=== PATIENT | female | born 1980 ===

== ENCOUNTER 2024-03-28 20:00 | Emergency (ER) | payer MEDICARE, SELFPAY ==
[2024-03-28 20:04] VITALS: BP 159/96; PULSE 98; RESP 16; TEMP 36.7; O2SAT 96
--- NOTE | 2024-03-28 20:43 | W.ED.GENAD ---
Discharge Plan Disposition Patient Disposition: Home Condition: Stable Discharge Details Clinical Impression: Headache Primary Care Provider: Unknown,Unknown ED Provider: Lucas Moya Discharge Instructions Additional Instructions: At this time your exam is reassuring however your symptoms and history are concerning for potential etiology in your head or neck that may necessitate CT imaging. Through shared decision-making process you have elected to seek evaluation at [facility]. Please go directly there for further diagnostic evaluation and workup as we discussed together. If you notice any worsening of your symptoms, or any new symptoms such as vomiting, diarrhea, fever, chills, shortness of breath, chest pain, numbness, weakness, or fainting , please return immediately to the emergency department for reevaluation. Please follow up with your primary care provider as soon as possible for reassessment and reevaluation. As always, it was a pleasure participating in your medical care today. HPI General Date/Time Provider Initiated Documentation: 03/28/24 20:23. HPI Narrative: 43-year-old female with a past medical history of ischemic stroke, hypertension, high cholesterol, diabetes mellitus, on daily aspirin, history of muscle spasms, presents today for evaluation of headache. Patient states that for the last 4 to 5 days she has had mild to moderate headache. She describes it as starting suddenly in the back of her head/neck on the right-hand side, it radiates up around the confucianism and into the front of the head. She describes it as a spasm and pressure-like sensation through the head and in the right back neck. Pain is not worsened with flexion but is worsened with extension. She denies any vision changes. She denies any hearing changes. She denies any trauma to that area. She has taken oxycodone and muscle relaxants without any improvement of her symptoms. She states that it feels slightly different than her previous stroke. She denies fever or chills. No other complaints at this time. No other modifying factors. She does state that the headache initially came on very suddenly. General Stated Complaint: Headache JAMEY: 3 Review of Systems All systems reviewed & are unremarkable except as noted in HPI and below Exam Narrative Exam Narrative: 1.Const: Well-nourished, Well-developed, appearing stated age 2.Eyes: PERRL, no conjunctival injection, and symmetrical lids. 3.ENT: Atraumatic external nose and ears. Moist MM. Neck: Symmetric, trachea midline, No thyromegaly. Patient demonstrates good movement of cervical neck. There is no nuchal rigidity, she does have pain in the right neck on palpation. Particularly below the right mastoid, questionable tenderness around the right mastoid. Tympanic membranes are phillips and pearly. Patient is able to flex the neck without any difficulty or significant pain. Negative Kernig's and Brudzinski sign. 4.CVS: +S1/S2, No murmurs or gallops. Peripheral pulses 2+ and equal in all extremities. Brisk capillary refill in all extremities. 5.RESP: Unlabored respiratory effort. Clear to auscultation bilaterally. No wheezes rales or rhonchi 6.GI: Soft, Nontender/Nondistended, No hepatosplenomegaly. No guarding or rebound. 7.MSK: Normocephalic/Atraumatic, Extremities w/o deformity or ttp No cyanosis or clubbing, Normal movement of all extremities 8.Skin: Warm, Dry. No rashes or lesions. 9.Neuro: cleaning crew member II-XII grossly intact. Sensation grossly intact, no focal neurologic deficits. All 6 cardinal planes of vision are fully intact. No evidence of rotatory or vertical nystagmus. The patient demonstrated a normal [id number], good dexterity. There was no evidence of dysdiadochokinesia. Patient was able to ambulate without difficulty. There was no wide-based gait. Romberg testing was normal. Eyvs-hx-hevq testing was normal. Sensation was intact bilaterally as well as muscle strength bilaterally for all extremities. Patient was able to verbalize butter cup with no slurring, or miss pronunciation. 10.Psych: (AAO) x3. Appropriate mood and affect Course Vital Signs Vital signs: Vital Signs Temperature 36.7 C 03/28/24 20:04 Pulse 98 H 03/28/24 20:04 Respiratory Rate 16 03/28/24 20:04 Blood Pressure 159/96 H 03/28/24 20:04 Pulse Oximetry 96 03/28/24 20:04 Temperature 36.7 C 03/28/24 20:04 Temperature Source Oral 03/28/24 20:04 Pulse 98 H 03/28/24 20:04 Respiratory Rate 16 03/28/24 20:04 Blood Pressure 159/96 H 03/28/24 20:04 Pulse Oximetry 96 03/28/24 20:04 Pain Level 5 03/28/24 20:04 Medical Decision Making 43-year-old female with a past medical history of ischemic stroke, hypertension, high cholesterol, diabetes mellitus, on daily aspirin, history of muscle spasms, presents today for evaluation of headache. Patient states that for the last 4 to 5 days she has had mild to moderate headache. She describes it as starting suddenly in the back of her head/neck on the right-hand side, it radiates up around the confucianism and into the front of the head. She describes it as a spasm and pressure-like sensation through the head and in the right back neck. Pain is not worsened with flexion but is worsened with extension. She denies any vision changes. She denies any hearing changes. She denies any trauma to that area. She has taken oxycodone and muscle relaxants without any improvement of her symptoms. She states that it feels slightly different than her previous stroke. She denies fever or chills. No other complaints at this time. No other modifying factors. She does state that the headache initially came on very suddenly. Patient demonstrates good movement of cervical neck. There is no nuchal rigidity, she does have pain in the right neck on palpation. Particularly below the right mastoid, questionable tenderness around the right mastoid. Tympanic membranes are phillips and pearly. Patient is able to flex the neck without any difficulty or significant pain. Negative Kernig's and Brudzinski sign. Patient shows no neurologic deficits. No other significant abnormalities. Differential includes mastoiditis, no vertebral artery bruits are auscultated, however vertebral artery dissection is on the differential. Stroke less likely, aneurysm or fracture of concern but does not seem to clinically fit her symptoms at this time. With the patient's significant risk factors of hypertension diabetes high cholesterol, daily aspirin use, current symptomatology I do feel that CT imaging is indicated for further evaluation of her mastoids, as well as brain/neck for CTA for vascular assessment. I discussed this with the patient. Currently our CAT scanner is down and is not scheduled to be back up for another 24 to 36 hours. We do not have MRI availability at this time. I did offer to transfer the patient to any of the [facility] facilities or [facility]. Additionally I did offer to medicate the patient and perform laboratory evaluation here. Patient at this time has declined further diagnostic workup and medication at this time and would prefer to go directly to [facility]. We discussed the risks and benefits of this, and patient understands. She will be leaving now at this time fully understanding and accepting these risks and will be traveling directly to [facility] with her friend. I have extensively reviewed the treatment plan and discharge instructions with the patient. I have addressed all patient concerns at this time. The patient was made aware of what symptoms to monitor for that would warrant a return to the emergency department. Discussed the plan with the patient, they demonstrate verbal understanding and agreement with our assessment and plan at this time. The documentation in this chart was dictated using [employer] dictation software. Please excuse any dictation errors. Quality:SDOH Health Related Social Needs: No Data to Display PFSH All Active Problems Headache (Acute) Social History Smoking/Tobacco Use Status: Current every day Tobacco Type: cigarettes Smoking risk assessment performed?: Yes Alcohol Intake: current Alcohol Intake frequency: holidays/special occasions only
== END 2024-03-28 20:49 | disposition home or self-care (01) ==
PROVIDERS: Emergency Provider Student in an Organized Health Care Education/Training Program
DX: R51.9 Headache, unspecified (principal); M54.2 Cervicalgia; I10 Essential (primary) hypertension; E78.00 Pure hypercholesterolemia, unspecified; E11.9 Type 2 diabetes mellitus without complications; Z79.82 Long term (current) use of aspirin; F17.210 Nicotine dependence, cigarettes, uncomplicated; Z86.73 Personal history of transient ischemic attack (TIA), and cerebral infarction without residual deficits
CPT/HCPCS: 99283

== ENCOUNTER 2024-05-10 00:02 | Emergency (ER) | payer MEDICARE, SELFPAY ==
[2024-05-10 00:07] VITALS: BP 142/70; PULSE 96; RESP 17; TEMP 36.9; O2SAT 98
--- NOTE | 2024-05-10 00:24 | ED.GENADUL_ITS ---
Discharge Plan Disposition Patient Disposition: Home Condition: Good Discharge Details Chief Complaint: FlankPain Clinical Impression: Left flank pain Primary Care Provider: Unknown,Unknown ED Provider: Lucas Moya Discharge Instructions Instructions: Flank Pain Additional Instructions: At this time your workup is returned very reassuring. We see no signs of kidney stone, blood clots, pneumonia, tumor or cancer or other significant abnormalities. You do have evidence of a slightly enlarged fatty liver. Please follow-up closely with your primary care provider for further discussion about this, and cholesterol medication therapies. Please take your home diclofenac anti-inflammatory medication as directed. Please use Lidoderm patch as directed. If you notice a significant improvement from this, you can get these [id number] at your local pharmacy. If you notice any worsening of your symptoms, or any new symptoms such as vomiting, diarrhea, fever, chills, shortness of breath, chest pain, numbness, weakness, or fainting , please return immediately to the emergency department for reevaluation. Please follow up with your primary care provider as soon as possible for reassessment and reevaluation. As always, it was a pleasure participating in your medical care today. HPI General Date/Time Provider Initiated Documentation: 05/10/24 00:04 . HPI Narrative: 43-year-old female with a past medical history of a left midbrain infarct in 2019, obesity, tobacco use, kidney stone, presents today for evaluat ion of left flank pain. Symptoms began last night, she states that it feels like a spasming sensation, she took a muscle relaxant with no improvement. She states that lying down and sitting down slightly worsens the pain. When she takes a deep breath she also has pain in that area. She denies any vomiting or diarrhea. She denies fever or chills. She does not want any medications for pain. She denies any urinary complaints, hematuria, or urinary frequency. She states that this feels different than her previous kidney stone. No other complaints at this time. No other modifying factors. No radiation anywhere else. Related Data Allergies Allergy/AdvReac Type Severity Reaction Status Date / Time erthromycin Allergy Intermediate burning Uncoded 05/10/24 01:29 General Stated Complaint: FlankPain JAMEY: 3 Review of Systems All systems reviewed & are unremarkable except as noted in HPI and below Exam Narrative Exam Narrative: 1.Const: Well-nourished, Well-developed, appearing stated age 2.Eyes: PERRL, no conjunctival injection, and symmetrical lids. 3.ENT: Atraumatic external nose and ears. Moist MM. Neck: Symmetric, trachea midline, No thyromegaly. 4.CVS: +S1/S2, No murmurs or gallops. Peripheral pulses 2+ and equal in all extremities. Brisk capillary refill in all extremities. 5.RESP: Unlabored respiratory effort. Clear to auscultation bilaterally. No wheezes rales or rhonchi 6.GI: Soft, Nontender/Nondistended, No hepatosplenomegaly. No guarding or rebound. Moderate left CVA tenderness. No reproducible tenderness on palpation though. 7.MSK: Normocephalic/Atraumatic, Extremities w/o deformity or ttp No cyanosis or clubbing, Normal movement of all extremities 8.Skin: Warm, Dry. No rashes or lesions. 9.Neuro: sister superior II-XII grossly intact. Sensation grossly intact, no focal neurologic deficits. 10.Psych: (AAO) x3. Appropriate mood and affect Course Vital Signs Vital signs: Vital Signs Pulse 96 H 05/10/24 00:07 Respiratory Rate 17 05/10/24 00:07 Blood Pressure 142/70 H 05/10/24 00:07 Pulse Oximetry 98 05/10/24 00:07 Pulse 96 H 05/10/24 00:07 Respiratory Rate 17 05/10/24 00:07 Respiratory Effort Normal, Non-Labored 05/10/24 00:11 Blood Pressure 142/70 H 05/10/24 00:07 Pulse Oximetry 98 05/10/24 00:07 Oxygen Delivery Method Room Air 05/10/24 00:07 Oxygen Flow Rate 0 05/10/24 00:07 Pain Level 9 05/10/24 00:07 Comment patient state when she takes a deep breath the pain goes up to a 05/3005/10/24 00:07 Medical Decision Making 43-year-old female with a past medical history of a left midbrain infarct in 2019, obesity, tobacco use, kidney stone, presents today for evaluation of left flank pain. Symptoms began last night, she states that it feels like a spasming sensation, she took a muscle relaxant with no improvement. She states that lying down and sitting down slightly worsens the pain. When s he takes a deep breath she also has pain in that area. She denies any vomiting or diarrhea. She denies fever or chills. She does not want any medications for pain. She denies any urinary complaints, hematuria, or urinary frequency. She states that this feels different than her previous kidney stone. No other complaints at this time. No other modifying factors. No radiation anywhere else. Exam demonstrates well-appearing female, mild to moderate pain though. Mild left CVA tenderness. No reproducible tenderness on palpation of the abdomen or flank with touch though. Concern for urolithiasis, less likely PE, cardiac etiology appears unlikely. Will evaluate for etiologies, monitor closely and reassess. Patient does not want anything for pain. 2:45 AM Laboratory workup has returned, D-dimer elevated, troponin normal, EKG rhythm strip shows no STEMI. Minimal white count, but no bandemia. CTA shows no evidence of PE, dissection, kidney stone, or other acute abnormality. Patient does have evidence of fatty liver which we did discuss with her. Lungs are clear, no other abnormalities on exam or assessment otherwise. Patient feels stable. No evidence of acute life-threatening etiology otherwise. Diagnosis/differential includes intercostal spasm, mild pleurisy, or other acute nonlife-threatening etiology. Patient has consented for Toradol now. We will give Lidoderm patch. Patient otherwise stable for discharge and close outpatient follow-up. Discussed red flags for which to return. I have extensively reviewed the treatment plan and discharge instructions with the patient. I have addressed all patient concerns at this time. The patient was made aware of what symptoms to monitor for that would warrant a return to the emergency department. Discussed the plan with the patient, they demonstrate verbal understanding and agreement with our assessment and plan at this time. The documentation in this chart was dictated using [employer] dictation software. Please excuse any dictation errors. Exam: CTA Chest With Contrast CTA Abdomen and Pelvis With Contrast Exam date and time: 05/10/2024 1:43 AM Age: 43 years old Clinical indication: Other: Elevated dimer, cp, eval for pe; Other: L flank, eval for stone TECHNIQUE: Imaging protocol: Computed tomographic angiography of the chest with contrast. Exam focused on the arteries. Computed tomographic angiography of the abdomen and pelvis with contrast. Exam focused on the arteries. 3D rendering (Not supervised by radiologist): MIP and/or 3D reconstructed images were created by the technologist. Contrast material: OMNIPAQUE 350; Contrast volume: 100 ml; Contrast route: INTRAVENOUS (IV); COMPARISON: No relevant prior studies available. FINDINGS: VASCULATURE: Pulmonary arteries: The pulmonary arteries are normal in caliber. No evidence of acute pulmonary embolism. Aorta: The aorta is normal without evidence of aneurysmal dilatation, dissection or occlusive disease. The abdominal aorta is widely patent without evidence of significant occlusive or aneurysmal disease. The aorta is normal without evidence of significant atherosclerosis or aneurysmal disease. The peripheral arterial vascular system visualized is unremarkable. The portal venous system visualized is unremarkable. The venous system visualized is unremarkable. Celiac trunk and mesenteric arteries: The celiac artery is widely patent without evidence of occlusive or aneurysmal disease. Superior mesenteric artery is widely patent without evidence of [facility] Preliminary Radiology Report Page 2 of 3 occlusive or aneurysmal disease.The inferior mesenteric artery is widely patent without evidence of occlusive or aneurysmal disease. Renal arteries: Single renal artery supplies the right kidney, is widely patent, without evidence of significant occlusive or aneurysmal disease. Single renal artery supplies the left kidney, is widely patent, without evidence of significant occlusive or aneurysmal disease. Right iliac arteries: The right common iliac artery, right internal iliac artery and right external iliac arteries are widely patent without evidence of significant occlusive or aneurysm al disease. Right femoral/popliteal arteries: The right common femoral artery is widely patent without evidence of significant occlusive or aneurysmal disease. The proximal right deep and superficial femoral arteries are widely patent without evidence of significant occlusive or aneurysmal disease. Left iliac arteries: The left common iliac artery, left internal iliac artery and left external iliac arteries are widely patent without evidence of significant occlusive or aneurysmal disease. Left femoral/popliteal arteries: The left common femoral artery is widely patent without evidence of significant occlusive or aneurysmal disease. The proximal left deep and superficial femoral arteries are widely patent without evidence of significant occlusive or aneurysmal disease. CHEST: Lungs: There is no evidence of focal pulmonary consolidation. No evidence of pulmonary parenchymal inflammatory changes. There is no evidence of pulmonary masses. The lungs are normal. There is no evidence of focal pulmonary consolidation. Pleural spaces: There is no evidence of pneumothorax. There are no pleural effusions present. There is no evidence of pneumothorax. There are no pleural effusions present. Heart: The cardiac structures are normal. The right ventricular to left ventricular ratio is normal measuring approximately 0.6. The cardiac structures are normal. ABDOMEN AND PELVIS: Liver: The liver is enlarged measuring 17 cm.There is a diffuse decrease in hepatic parenchymal density, consistent with moderate fatty infiltration. There are no focal liver lesions present. There is no evidence of intrahepatic or extrahepatic biliary ductal dilation. Gallbladder and biliary ducts: There has been a cholecystectomy. Pancreas: The pancreas is normal. Spleen: The spleen is normal. Adrenal glands: The adrenal glands are normal. Kidneys and ureters: The kidneys are normal. Stomach and bowel: There is no evidence of intestinal obstruction. No diverticulitis is present. Appendix: A normal appendix is identified. There is no evidence of distention or periappendiceal inflammation to suggest appendicitis. Intraperitoneal space: There is no free intraperitoneal air. There is no evidence of free intraperitoneal or pelvic fluid. There are no soft tissue masses or fluid collections. Urinary bladder: The bladder is normal. Reproductive: The uterus is normal. The ovaries are normal. Lymph nodes: There is no evidence of lymphadenopathy. There is no evidence of lymphadenopathy. Bones/joints: The spine, sternum, ribs, and pectoral girdles show no evidence of acute abnormality. The skeletal structures show no evidence of fracture or other acute processes. [facility] Preliminary Radiology Report RECRUITING COORDINATOR (QA) DISCREPANCY? If there is a discrepancy between the preliminary and final interpretation, please notify [facility] via [email or web address]. If you do not have access to our QA portal, call our QA team at [phone] CONFIDENTIALITY STATEMENT This report is intended only for the use of the referring physician, and only in accordance with law, If you received this in error, call [phone] Page 3 of 3 Soft tissues: There are no soft tissue masses or fluid collections. The extra- abdominal soft tissues are normal. Other findings: The mediastinal structures are normal. IMPRESSION: 1. No evidence of acute pulmonary embolism. 2. Hepatic steatosis with hepatomegaly. 3. Normal appearance to the kidneys bilaterally. 4. No evidence of aneurysm, vascular occlusive or vasculitis changes identified. Thank you for allowing us to participate in the care of your patient. Dictated and Authenticated by: Jayro Wong MD 05/10/2024 2:26 AM Eastern Time ([place] & [place]) Quality:SDOH Health Related Social Needs: No Data to Display PFSH All Active Problems (Updated 05/10/24 @ 02:43 by Lucas Moya DO) Left flank pain (Acute) Social History Smoking/Tobacco Use Status: Current every day Tobacco Type: cigarettes Smoking risk assessment performed?: Yes Alcohol Intake: current Alcohol Intake frequency: holidays/special occasions only Drug use: Never Substance use type: does not use Housing: house
[2024-05-10 00:45] LABS: Abs Immature Grans 0.04 10^3/uL (0.0-0.06); Absolute Basophil Count 0.05 10^3/uL (0.0-0.2); Absolute Eosinophil Count 0.12 10^3/uL (0.0-0.7); Absolute Lymphocyte Count 3.29 10^3/uL (1.2-3.4); Absolute Monocyte Count 0.81 10^3/uL (0.1-0.8); Basophils % 0.4 %; Eosinophils % 0.9 %; HCT 39.2 % (36.0-46.0); HGB 12.8 g/dL (11.2-15.7); Immature Grans % 0.3 %; Lymphocytes % 24.4 %; MCH 28.3 pg (27.0-33.0); MCHC 32.7 % (32.0-36.0); MCV 87 fL (80-95); MPV 9.5 fL (8.0-11.0); Platelet Count 335 10^3/uL (130-400); RBC 4.53 10^6/uL (3.93-5.22); RDW 14.1 % (11.7-14.6); RDW-SD 44.9 fL; WBC 13.49 10^3/uL (4.4-10.8)
[2024-05-10 00:47] LABS: Absolute Neutrophil Count 9.17 10^3/uL (1.2-6.7)
[2024-05-10 01:00] LABS: Bilirubin Negative (Negative); Blood Negative (Negative); Clarity Sl Cloudy (Clear); Glucose Negative (Negative); Ketones Negative (Negative); Leukocyte Esterase Negative (Negative); Nitrite Negative (Negative); Urobilinogen 0.2 mg/dL (Up to 0.2); pH 6.5 (5-8)
[2024-05-10 01:04] LABS: ALT 47 U/L (14-59); AST 18 U/L (15-37); Albumin 3.7 g/dL (3.4-5.0); Alkaline Phosphatase 134 U/L (46-116); Anion Gap 10.9 mmol/L (3-11); BUN 22 mg/dL (7-18); Bilirubin, Total 0.37 mg/dL (0.2-1.0); CO2 28.1 mmol/L (21.0-32.0); CREATININE 0.9 mg/dL (0.55-1.02); Chloride 102 mmol/L (98-107); Estimated GFR 80.84 (mL/min/1.73m2); Glucose 128 mg/dL (74-106); Potassium 3.8 mmol/L (3.5-5.1); Sodium 141 mmol/L (136-145); Total Protein 7.5 g/dL (6.4-8.2); Troponin I < 50 ng/L (< or =60)
[2024-05-10 01:18] LABS: D-Dimer 549 ng/mlFEU (<500)
[2024-05-10] MEDS: Normal Saline 1,000 ML 1000 ML IV (01:27)
[2024-05-10] MEDS: Normal Saline - Diluent 50 ML VIAL IJ (01:59)
[2024-05-10] MEDS: Omnipaque 350 MG/ML 100 ML BTL IJ (01:59)
--- NOTE | 2024-05-10 02:03 | DI.CT_ITS ---
Exam(s) CT THORAX ABD/PEL CTA EXAM: CT THORAX ABD/PEL CTA CLINICAL HISTORY: elevated dimer, L flank and CP, eval for PE/stone. TECHNIQUE: Imaging Protocol: Axial CT angiography was performed with multi-slice acquisition and m ulti-planar and/or 3D reconstructions. CONTRAST MATERIAL: Intravenous: Omnipaque 350 Contrast volume:structured data in ml Oral: / no COMPARISON: No exams were available for comparison FINDINGS: CHEST: Pulmonary Arteries: No evidence of filling defect to suggest pulmonary emboli. Tracheobronchial tree: Patent where visualized. Mediastinum and Ashley: No dominant adenopathy or fluid collection. Pulmonary parenchyma: No consolidation or dominant measurable mass. No architectural distortion. Pleura: No effusion or pneumothorax. Heart: The heart is not dilated. No coronary artery calcifications are seen. Aorta: Thoracic aorta non-dilated. No dissection. No atherosclerotic changes. Bones: Normal. Tubes, Catheters, and Lines: None ABDOMEN AND PELVIS: Abdomen: Celiac axis/mesenteric arteries: No evidence of occlusion or significant stenosis. Renal Arteries: No evidence of occlusion or significant stenosis. There is a single renal artery per fusing each kidney. Aorta: No evidence of occlusion or significant stenosis. No aneurysm or dissection. Pelvis: Iliac Arteries: No evidence of occlusion or significant stenosis. Common Femoral Arteries: No evidence of occlusion or significant stenosis. ABDOMEN: Liver: Enlarged. Moderate hepatic steatosis. No measurable mass. Portal, Superior Mesenteric, and Splenic Veins: Unremarkable. Gallbladder and Biliary Tract: Status post cholecystectomy. No radiodense calculus or dilation. Pancreas: Normal density, no abnormal calcifications or inflammatory process. Spleen: Normal. Adrenals: No masses seen. Kidneys: Normal size, contour and axis. No radiodense stones or obstructive uropathy. No masses seen. Bowel: No obstruction or bowel wall thickening. Appendix is unremarkable. Peritoneal Cavity: No ascites, collection or mesenteric inflammatory response. Lymph Nodes: Within normal limits. Bones: Unremarkable. Soft Tissues: Unremarkable. PELVIS: Bladder: Symmetric distention, no gross wall thickening. Reproductive Organs: Unremarkable as visualized. Lymph Nodes: Within normal limits. Bones: Within normal limits. IMPRESSION: Normal CT Angiogram of the chest, abdomen and pelvis. No evidence of pulmonary emboli. No evidence of renal calculi or hydronephrosis. Enlarged liver with moderate hepatic steatosis. RADIATION DOSE DELIVERED: Total DLP DATA REPOSITORY: All CT scans at this facility are submitted to the National Radiology Data Registry (NRDR) Dose Index Registry (DIR) with the [employer] (ACR). RADIATION OPTIMIZATION: All CT scans at this facility use at least one of these dose optimization te chniques: automated exposure control; mA and/or kV adjustment per patient size (includes targeted exa ms where dose is matched to clinical indication); or iterative reconstruction.
--- NOTE | 2024-05-10 02:27 | DI.VRAD_ITS ---
PROCEDURE INFORMATION: Exam: CTA Chest With Contrast CTA Abdomen and Pelvis With Contrast Exam date and time: 05/10/2024 1:43 AM Age: 43 years old Clinical indication: Other: Elevated dimer, cp, eval for pe; Other: L flank, eval for stone TECHNIQUE: Imaging protocol: Computed tomographic angiography of the chest with contrast. Exam focused on the arteries. Computed tomographic angiography of the abdomen and pelvis with contrast. Exam focused on the arteries. 3D rendering (Not supervised by radiologist): MIP and/or 3D reconstructed images were created by the technologist. Contrast material: OMNIPAQUE 350; Contrast volume: 100 ml; Contrast route: INTRAVENOUS (IV); COMPARISON: No relevant prior studies available. FINDINGS: VASCULATURE: Pulmonary arteries: The pulmonary arteries are normal in caliber. No evidence of acute pulmonary embolism. Aorta: The aorta is normal without evidence of aneurysmal dilatation, dissection or occlusive disease. The abdominal aorta is widely patent without evidence of significant occlusive or aneurysmal disease. The aorta is normal without evidence of significant atherosclerosis or aneurysmal disease. The peripheral arterial vascular system visualized is unremarkable. The portal venous system visualized is unremarkable. The venous system visualized is unremarkable. Celiac trunk and mesenteric arteries: The celiac artery is widely patent without evidence of occlusive or aneurysmal disease. Superior mesenteric artery is widely patent without evidence of occlusive or aneurysmal disease.The inferior mesenteric artery is widely patent without evidence of occlusive or aneurysmal disease. Renal arteries: Single renal artery supplies the right kidney, is widely patent, without evidence of significant occlusive or aneurysmal disease. Single renal artery supplies the left kidney, is widely patent, without evidence of significant occlusive or aneurysmal disease. Right iliac arteries: The right common iliac artery, right internal iliac artery and right external iliac arteries are widely patent without evidence of significant occlusive or aneurysmal disease. Right femoral/popliteal arteries: The right common femoral artery is widely patent without evidence of significant occlusive or aneurysmal disease. The proximal right deep and superficial femoral arteries are widely patent without evidence of significant occlusive or aneurysmal disease. Left iliac arteries: The left common iliac artery, left internal iliac artery and left external iliac arteries are widely patent without evidence of significant occlusive or aneurysmal disease. Left femoral/popliteal arteries: The left common femoral artery is widely patent without evidence of significant occlusive or aneurysmal disease. The proximal left deep and superficial femoral arteries are widely patent without evidence of significant occlusive or aneurysmal disease. CHEST: Lungs: There is no evidence of focal pulmonary consolidation. No evidence of pulmonary parenchymal inflammatory changes. There is no evidence of pulmonary masses. The lungs are normal. There is no evidence of focal pulmonary consolidation. Pleural spaces: There is no evidence of pneumothorax. There are no pleural effusions present. There is no evidence of pneumothorax. There are no pleural effusions present. Heart: The cardiac structures are normal. The right ventricular to left ventricular ratio is normal measuring approximately 0.6. The cardiac structures are normal. ABDOMEN AND PELVIS: Liver: The liver is enlarged measuring 17 cm.There is a diffuse decrease in hepatic parenchymal density, consistent with moderate fatty infiltration. There are no focal liver lesions present. There is no evidence of intrahepatic or extrahepatic biliary ductal dilation. Gallbladder and biliary ducts: There has been a cholecystectomy. Pancreas: The pancreas is normal. Spleen: The spleen is normal. Adrenal glands: The adrenal glands are normal. Kidneys and ureters: The kidneys are normal. Stomach and bowel: There is no evidence of intestinal obstruction. No diverticulitis is present. Appendix: A normal appendix is identified. There is no evidence of distention or periappendiceal inflammation to suggest appendicitis. Intraperitoneal space: There is no free intraperitoneal air. There is no evidence of free intraperitoneal or pelvic fluid. There are no soft tissue masses or fluid collections. Urinary bladder: The bladder is normal. Reproductive: The uterus is normal. The ovaries are normal. Lymph nodes: There is no evidence of lymphadenopathy. There is no evidence of lymphadenopathy. Bones/joints: The spine, sternum, ribs, and pectoral girdles show no evidence of acute abnormality. The skeletal structures show no evidence of fracture or other acute processes. Soft tissues: There are no soft tissue masses or fluid collections. The extra-abdominal soft tissues are normal. Other findings: The mediastinal structures are normal. IMPRESSION: 1. No evidence of acute pulmonary embolism. 2. Hepatic steatosis with hepatomegaly. 3. Normal appearance to the kidneys bilaterally. 4. No evidence of aneurysm, vascular occlusive or vasculitis changes identified. Dictated and Authenticated by: Jayro Wong MD. Ordering:CHATO Zavala MD
[2024-05-10 02:49] VITALS: BP 129/77; PULSE 82; RESP 18; TEMP 37; O2SAT 95; O2SAT 96
[2024-05-10] MEDS: Ketorolac 15 MG/ML VIAL IVP (02:54)
[2024-05-10] MEDS: Lidocaine 5% Patch 1 PATCH TP (02:55)
== END 2024-05-10 03:00 | disposition home or self-care (01) ==
PROVIDERS: Emergency Provider Student in an Organized Health Care Education/Training Program
DX: R10.9 Unspecified abdominal pain (principal); R79.1 Abnormal coagulation profile; K76.0 Fatty (change of) liver, not elsewhere classified; F17.210 Nicotine dependence, cigarettes, uncomplicated
CPT/HCPCS: 71275; 80053; 96374; 99285; 74174; 81003; 84484; 85025; 85379; 99284; J1885; J3490

== ENCOUNTER 2024-06-16 00:06 | Emergency (ER) | payer MEDICARE, SELFPAY ==
[2024-06-16 00:08] VITALS: BP 142/79; PULSE 84; RESP 16; TEMP 36.3; O2SAT 95
[2024-06-16 00:13] VITALS: BP 142/79; PULSE 84; RESP 16; TEMP 36.3; O2SAT 95
--- OUTSIDE RECORDS SUMMARY | 2024-06-16 00:22 | XMS_ITS | Encounter Summary ---
Author Organization [facility] Address [address] [place] [address] Care Team Providers Care Mission Assessment Specialist Name Role Phone Mia Alexander DO Primary Care Provider + Reason for Visit * Reason Onset Date Comments Prior Auth, Medication 03/13/2024 FreeStyle Test Strips Encounter Details Date Type Department Care Team (Late st Contact Info) Description 03/13/2024 Telephone [facility] Family Medicine [address], [facility] [address] [place] [address] Mia Alexander DO [address] [facility] [address] [place] [phone] Prior Auth, Medication (FreeStyle Test Strips) Social History Tobacco Use Types Packs/Day Years Used Date Smoking Tobacco: Every Day Cigarettes 1 32.7 Started: 1991 Smokeless Tobacco: Never Alcohol Use Standard Drinks/Week Comments Yes 0 (1 standard drink = 0.6 oz pur e alcohol) AUDIT-C Answer Date Recorded Frequency of Alcohol Consumption 2-4 times a mon 10/03/2019 Average Number of Drinks 1 or 2 020 Frequency of Binge Drinking Never 09/20 Interpersonal Safety Answer Date Record ed Physically Hurt Never 04/21/2020 Verbally Threaten Not on file 04/21/2020 Sex and Gender Information Value Date Recorded Sex Assigned at Not on file Gender Identity Female 08/04/2019 13:58 EST Sexual Orientation Not on file documented as of this encounter Ordered Prescriptions Prescription Sig Dispensed Refills Start Date End Da te blood glucose test stripsIndications:Type 2 diabetes mellitus with hyperglycemia, without long-term current use of insulin ([facility]) Brand: One Touch Ultra. To test once daily. Patient does not use insulin. 100 Each 3 03/14/2024 documented in this encounter Miscellaneous Notes * Telephone Encounter - Sue Orozco RN - 03/14/2024 0921 EDT Unclear why we are getting request for freestyle strips as pt has OneTouch glucometer. Called [facility] in [place]. Spoke w/ pharmacist who reports since we are billing Medicare, we must send rx for specific product, include ICD code and state in sig if pt is or is not using insulin. Re-ordered correct strips with above requirement. * Telephone Encounter - Gage Ford MA - 03/13/2024 0959 EDT PA Needed for: RX: FreeStyle test Strips Yung: [id number] [employer] documented in this encounter Plan of Treatment Not on file documented as of this encounter Visit Diagnoses Diagnosis Type 2 diabetes mellitus with hyperglycemia, without long-term current use of insulin ([facility])- Primary documented in this encounter Discontinued Medications Medication Sig Discontinue Reason Start Date End Da te blood glucose test stripsIndications:Type 2 diabetes mellitus with hyperglycemia, without long-term current use of insulin ([facility]) Use 1 Strip as directed daily. Brand:per formulary; test blood sugar once daily 11/24/2023 03/14/2024 documented as of this encounter Care Teams Mission Assessment Specialist Relationship Specialty Start Date End Date Mia Alexander DO [address] [place] [phone] PCP - General Family Medicine - Primary Care 01/29/23 documented as of this encounter
--- OUTSIDE RECORDS SUMMARY | 2024-06-16 00:22 | XMS_ITS | Encounter Summary ---
Author Organization [facility] Address [address] [place] [address] Care Team Providers Care Precision Grinder External Name Role Phone Mia Alexander DO Primary Care Provider + Reason for Visit * Reason Onset Date Comments Rash 02/17/2024 Encounter Details Date Type Department Care Team (Late st Contact Info) Description 02/17/2024 Telephone [facility] Family Medicine - [address], [facility] [address] [place] [address] Mia Alexander DO [address] [facility] [address] [place] [phone] Rash Social History Tobacco Use Types Packs/Day Years Used Date Smoking Tobacco: Every Day Cigarettes 1 32.7 Started: 1991 Smokeless Tobacco: Never Alcohol Use Standard Drinks/Week Comments Yes 0 (1 standard drink = 0.6 oz pur e alcohol) AUDIT-C Answer Date Recorded Frequency of Alcohol Consumption 2-4 times a wed10/03/2019 Average Number of Drinks 1 or 2 020 Frequency of Binge Drinking Never 09/20 Interpersonal Safety Answer Date Record ed Physically Hurt Never 04/21/2020 Verbally Threaten Not on file 04/21/2020 Sex and Gender Information Value Date Recorded Sex Assigned at Not on file Gender Identity Female 08/04/2019 13:58 EST Sexual Orientation Not on file documented as of this encounter Miscellaneous Notes * Telephone Encounter - Sue Orozco RN - 02/17/2024 1059 EDT [facility] Primary Care SBAR Nurse Triage call note: Situation: Rash Background: Rash on chest x2 days Assessment: Rash on chest traveling up neck, now has sore throat. No difficulty breathing. Recommendation: Recommend eval ROMMEL. Pt will go to [facility]. Will have them fax records to. * Telephone Encounter - Deloris Rod - 02/17/2024 0976 EDT Rash on chest that is itchy and roland, been there for a few days, travelling up her neck. Pt inquiring about what she can put on it. documented in this encounter Plan of Treatment Not on file documented as of this encounter Visit Diagnoses Not on filedocumented in this encounter Care Teams Precision Grinder External Relationship Specialty Start Date End Date Mia Alexander DO [address] [place] [phone] PCP - General Family Medicine - Primary Care 01/29/23 documented as of this encounter
--- OUTSIDE RECORDS SUMMARY | 2024-06-16 00:22 | XMS_ITS | Encounter Summary ---
Author Organization [facility] Address [address] [place] [address] Care Team Providers Care Informatics Coordinator Name Role Phone Mia Alexander DO Primary Care Provider + Reason for Visit * Reason Onset Date Comments Medications Refill 05/15/2024 Diflucan Encounter Details Date Type Department Care Team (Late st Contact Info) Description 05/15/2024 Telephone [facility] Family Medicine [address], [place] [address] [place] [address] Mia Alexander DO [address] [facility] [address] [place] [phone] Medications Refill (Diflucan) Social History Tobacco Use Types Packs/Day Years [...] encounter Miscellaneous Notes * Telephone Encounter - Tenisha Danielson RN - 05/17/[address] [facility] Primary Care SBAR Nurse Triage call note: Situation: Rash under stomach folds Background: History of yeast infections, has Nystatin powder that she is currently using as prescribed - no resolution, DM2, BMI over 50 Assessment: Patient reports rash, odor, burning, itching, onset of 4 days. This occurs when patient sweats. Nystatin powder ineffective. Patient requested Fluconazole as this is what has helped in the past Recommendation: Offered NV to patient or EC for eval and swab for proper treatment. Patient elected to go to local EC. Confirmed next appt with [facility] with patient. * Telephone Encounter - Kayla Ambriz NP - 05/15/2024 1537 EDT I recommend having a NV for self swab to make sure we are treating yeast infection prior to starting medication. Thanks * Telephone Encounter - Gage Ford MA - 05/15/2024 1412 EDT Medication Refill Request Medication and dose: Diflucan 150 mg tab Verified: Yes Pharmacy verified: Yes Last visit: 02/08/2024 Next visit: 06/05/2024 Pt has Hx of yeast infections. Has been sent-in previously without appointment. Are you willing to Rx? documented in this encounter Plan of Treatment Not on file documented as of this encounter Visit Diagnoses Diagnosis Yeast infection- Primary Candidiasis of unspecified site documented in this encounter Care Teams Informatics Coordinator Relationship Specialty Start Date End Date Mia Alexander DO [address] [place] [phone] PCP - General Family Medicine - Primary Care 01/29/23 documented as of this encounter
--- OUTSIDE RECORDS SUMMARY | 2024-06-16 00:22 | XMS_ITS | Referral Summary ---
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); Chronic prescription opiate use; Chronic pain syndrome; Type 2 diabetes mellitus with hyperglycemia, without long-term current use of insulin (HCC-CMS); Metabolic dysfunction-associate d steatotic liver disease (MASLD); Immunization due; Encounter for screening mammogram for malignant neoplasm of breast; Cervical cancer screening 05/24/2024 Telephone [facility] [address], [place] [address] [place] [address] Mia Alexander DO Medications Refill (Pt is out of RX); Other (Yeast on stomach) 05/24/2024 Refill [facility] [address], [facility] [address] [place] [address] Sadiq Buck MD Medications Refill 05/18/2024 Refill [facility] [address], [place] [address] [place] [address] Mia Alexander, DO Medications Refill 05/15/2024 Telephone [facility] [address], [place] [address] [place] [address] Mia Alexander, DO Medications Refill (Diflucan) 05/11/2024 Refill [facility] [address], [place] [address] [place] [address] Sue Yates MD Medications Refill (Lorazepam increase) 05/10/2024 Telephone [facility] [address], [place] [address] [place] [address] Mia Alexander, DO Follow-up 05/06/2024 Telephone [facility] [address] [facility] [place] [address] Ramy Taylor MD Television Engineer Message 04/26/2024 Refill [facility] [address], [place] [address] [place] [address] Kayla Ambriz NP Medications Refill 04/22/2024 Refill [facility] [address], [place] [address] [place] [address] Sue Yates MD Medications Refill 04/19/2024 Refill [facility] [address], [place] [address] [place] [address] Sue Yates MD Medications Refill 04/12/2024 Refill [facility] [address], [place] [address] [place] [address] Sue Yates MD Medications Refill 04/12/2024 Refill [facility] [address], [place] [address] [place] [address] Mia Alexander, DO Medications Refill 04/03/2024 Refill [facility] [address], [place] [address] [place] [address] Mia Alexander, DO Medications Refill 03/30/2024 Refill [facility] [address], [place] [address] [place] [address] Sue Kerns, MELLY Medications Refill 03/29/2024 Telephone [facility] [address], [place] [address] [place] [address] Mia Alexander, DO Medications Refill; Medical Records 03/21/2024 Refill [facility] [address], [place] [address] [place] [address] Emma Conteh, STUDENT RECRUITER Medications Refill from Last 3 Months Allergies Active Allergy Reactions Criticality Noted Date Comments Amoxicillin-Pot Clavulanate GI upset Low 10/07/19 22 Oxycodone Itching Low 07/02/2023 Medications Medication Sig Dispensed Refills Start Date End Date Status omeprazole (PRILOSEC) 20 mg capsule TAKE ONE CAPSULE BY MOUTH ONE TIME DAILY 90 Capsule 3 3 Active aspirin 81 mg EC tabletIndicatio ns:Cerebrovascu lar accident (CVA), unspecified mechanism ([facility]) TAKE ONE TABLET BY MOUTH ONE TIME DAILY. 100 Tablet 5 3 Active atorvastatin (LIPITOR) 40 mg tablet TAKE ONE TABLET BY MOUTH ONE TIME DAILY 90 Tablet 3 4 Active ONETOUCH ULTRA2 METER Use 1 Strip as directed daily. 3 Active ONETOUCH ULTRASOFT 2 LANCET 30 gauge misc Use 1 Lancet as directed daily. 3 Active lancetsIndicati ons:Type 2 diabetes mellitus with hyperglycemia, without long-term current use of insulin (HCC-CMS) Use 1 Lancet as directed daily. Brand: per formulary; test blood sugar once daily 100 Each 3 4 Active hydrOXYzine (ATARAX) 10 mg tabletIndicatio ns:Generalized anxiety disorder with panic attacks Take 1 Tablet by mouth every 8 hours as needed for Anxiety. 30 Tablet 4 Active blood glucose test stripsIndicatio ns:Type 2 diabetes mellitus with hyperglycemia, without long-term current use of insulin ([facility]) Brand: One Touch Ultra. To test once daily. Patient does not use insulin. 100 Each 3 4 Active methocarbamoL (ROBAXIN) 750 mg tablet Take 1 Tablet by mouth 3 times daily as needed for Muscle Spasms. 30 Tablet 1 4 Active semaglutide (OZEMPIC) 0.25 mg or 0.5 mg (2 mg/3 mL) pen injector Inject 0.5 mg into the skin once a week. 3 mL 1 4 Active FLUoxetine (PROZAC) 20 mg capsuleIndicati ons:Generalized anxiety disorder with panic attacks,Recurre nt major depressive disorder, in full remission ([facility]) Take 1 Capsule by mouth daily. With 40 mg fluoxetine for total daily dose of 60 mg 90 Capsule 3 4 Active colestipoL (COLESTID) 1 gram tabletIndicatio ns:Postcholecys tectomy diarrhea Take 2 Tablets by mouth every morning AND 1 Tablet at bedtime. 90 Tablet 4 Active naloxone (NARCAN) 4 mg/actuation nasal spray 0.1 mL by nasal route as needed for Opioid Reversal. 1 Each 1 4 Active LORazepam (ATIVAN) 0.5 mg tabletIndicatio ns:Chronic pain syndrome Take 1/2 Tabletby mouth daily as needed for Anxiety. Daily Max: 0.25 mg 14 Tablet 4 Active FLUoxetine (PROZAC) 40 mg capsule TAKE ONE CAPSULE BY MOUTH ONE TIME DAILY 90 Capsule 3 4 Active nystatin (MYCOSTATIN) powder APPLY 2 TIMES DAILY to affected areas under breasts and groin folds 30 g 3 4 Active HYDROcodone-emili taminophen (NORCO) 5-325 mg tabletIndicatio ns:Chronic pain syndrome Take 1 Tablet by mouth every 6 hours as needed for up to 28 days for Pain (only as needed for severe pain). 1 day early d/t transportation Daily Max: 4 Tablets 112 Tablet 4 024 Active diclofenac (VOLTAREN) 75 mg EC tablet Take 1 Tablet by mouth 2 times daily. 180 Tablet 3 4 026 Active metFORMIN (GLUCOPHAGE-XR) 500 mg ER tabletIndicatio ns:Type 2 diabetes mellitus with hyperglycemia, without long-term current use of insulin ([facility]) Take 2 Tablets by mouth daily with breakfast. 180 Tablet 3 4 Active HYDROcodone-emili taminophen (NORCO) 5-325 mg tabletIndicatio ns:Chronic pain syndrome Take 1 Tablet by mouth every 6 hours as needed for up to 28 days for Pain (only as needed for severe pain). Daily Max: 4 Tablets 112 Tablet 4 024 Active HYDROcodone-emili taminophen (NORCO) 5-325 mg tabletIndicatio ns:Chronic pain syndrome Take 1 Tablet by mouth every 6 hours as needed for up to 28 days for Pain (only as needed for severe pain). Daily Max: 4 Tablets 112 Tablet 4 024 Active nystatin (MYCOSTATIN) powder APPLY 2 TIMES DAILY to affected areas under breasts and groin folds 30 g 3 3 024 Discontinued(Re order) diclofenac (VOLTAREN) 75 mg EC tablet Take 1 Tablet by mouth 2 times daily. 180 Tablet 3 3 024 Discontinued(Re order) FLUoxetine (PROZAC) 40 mg capsule TAKE ONE CAPSULE BY MOUTH ONE TIME DAILY 90 Capsule 3 3 024 Discontinued metFORMIN (GLUCOPHAGE-XR) 500 mg ER tabletIndicatio ns:Type 2 diabetes mellitus with hyperglycemia, without long-term current use of insulin ([facility]) Take 1 Tablet by mouth daily with breakfast 90 Tablet 3 4 024 Discontinued(Re order) ferrous sulfate 325 mg (65 mg iron) EC tabletIndicatio ns:Anemia, unspecified type TAKE ONE TABLET BY MOUTH ONCE DAILY 90 Tablet 3 4 024 Discontinued(Eber coughlin Stopped Taking) HYDROcodone-emili taminophen (NORCO) 5-325 mg tabletIndicatio ns:Chronic pain syndrome Take 1 Tablet by mouth every 6 hours as needed for up to 28 days for Pain (only as needed for severe pain). Daily Max: 4 Tablets 112 Tablet 4 024 Discontinued(Re order) HYDROcodone-emili taminophen (NORCO) 5-325 mg tabletIndicatio ns:Chronic pain syndrome Take 1 Tablet by mouth every 6 hours as needed for Pain (only as needed for severe pain). Daily Max: 4 Tablets 28 Tablet 4 024 Discontinued(Re order) Active Problems Patient Care Coordination No te Formatting of this note migh t be different from the original. Patient has given permission for [facility] to verbally discuss the following information with Enrique Shaw who has the following relationship to the patient: Spouse/Partner: Scheduling/Appt/Billing/Payment Information (does not include clinical information unless specifically indicated with separate option) Medical Information including symptoms, diagnosis, medications, test results and treatment plan (does not include Mental Health unless specifically indicated with separate option) Mental Health (Behavioral,Psychiatric,Chemical Dependency) health information, including my symptoms, diagnosis, medications and treatment plan Permission remains in effect until the patient elects to revoke it. Problem Noted Date Diagnosed Date Type 2 diabetes mellitus wit h hyperglycemia, without long-term current use of insulin ([facility]) 11/18/2023 Chronic pain syndrome 07/02/2023 Postcholecystectomy diarrhea 07/02/2023 Elevated C-reactive protein (CRP) 07/02/2023 Gastroesophageal reflux disease 07/02/2023 Chronic prescription opiate use 06/16/2022 Generalized anxiety disorder with panic attacks 12/02/2021 Cigarette nicotine dependence without complicati on 04/17/2020 Carpal tunnel syndrome of right wrist 09/05/2019 Irritable bowel syndrome with diarrhea 9 History of kidney stones 09/05/2019 Class 3 severe obesity due t o excess calories with serious comorbidity and body mass index (BMI) of 50.0 to 59.9 in adult ([facility]) 09/05/2019 Connective tissue disease overlap syndrome ([facility]) 09/05/2019 History of CVA (cerebrovascular accident) 2018 Overview: 08/11/2019: MRI of the brain shows a small infarction near in left midbrain tegmentum. There may also be a recent infarction in the medial left cerebral peduncle but this seems artifactual on the MRI and she has no weakness. The initial CT here was suspected to show occipital lobe infarctions but this was not found on the MRI. Etiology of infarct is likely heavy smoking and obesity (Ha1c 5.8) and LDL 79. Smoking cessation encouraged, as well as nutrition and weight loss. Exam has improved significantly, pt now denying diplopia, up walking with standby assist, steady, no weakness, she has improved lateral gaze with left eye. 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 01/25/2020 07/02/2023 Depression with anxiety 09/05/201906/20 Hypoglycemia 09/05/2019 07/02/2023 Prediabetes 09/05/2019 11/18/2023 Needle phobia 09/05/2019 07/02/2023 Otalgia 09/05/2019 07/02/2023 Panic attack 09/05/2019 07/02/2023 Tobacco dependence syndrome 09/05/2019 07/02/2023 Current moderate episode of major depressive disorder without prior episode ([facility]) 08/04/2019 11/09/2022 Immunizations Name Administration Dates Next Due Covid-19 mRNA Vaccine (MODER NA COVID-19) PF 0.5 ml IM (12 yrs+) 01/18/2021,12/21/2020 Hepatitis A Vaccine Adult (HAVRIX/VAQTA) IM 10/22 Hepatitis B Vaccine (HEPLISAV-B) Adult IM 2 Dose 11/18/2023 Influenza Vaccine =>3yo Split Preservative Free IM 07/28/2010 Influenza Vaccine Quad (AFLURIA) PF 0.5 ml IM (3 yrs+) 07/04/2018 Tdap Vaccine =>7YO IM 08/21/2013 Social History Tobacco Use Types Packs/Day Years Used Date Smoking Tobacco: Every Day Cigarettes 1 32.7 Started: 1992 Smokeless Tobacco: Never Tobacco Cessation:Ready to Q uit: Not Asked; Counseling Given: Not Answered Alcohol Use Standard Drinks/Week Comments Yes 0 (1 standard drink = 0.6 oz pur e alcohol) AUDIT-C Answer Date Recorded Frequency of Alcohol Consumption 2-4 times a wed10/03/2019 Average Number of Drinks 1 or 2 020 Frequency of Binge Drinking Never 09/20 PHQ-2 Answer Date Recorded PHQ-2 SUBTOTAL 1 06/05/2024 Interpersonal Safety Answer Date Record ed Physically Hurt Never 04/21/2020 Verbally Threaten Not on file 04/21/2020 Employment Answer Date Recorded Do you want help finding or keeping work or a job? I do not need or want help 06/05/2024 Financial Strain Answer Date Recorded How hard is it for you to pa y for the very basics like food, housing, medical care, and heating? Would you say it is: Not hard at all 06/05/2024 Living Situation Answer Date Recorded What is your living situation today? I have a [facility] place to live 06/05/[address] you li ve. Do you have problems with any of the following? None of the above 06/05/2024 Family & Community Support Answer Date Recorded If for any reason you need h elp with day-to-day activities such as bathing, preparing meals, shopping, managing finances, etc., do you get the help you need? I don't need any help 06/05/2024 How often do you feel lonely or isolated from those around you? Never 06/05/2024 Interpersonal Safety Answer Date Record ed How often does anyone, joey torres family and friends, physically hurt you? Never 06/05/2024 How often does anyone, joey melissa family and friends, insult or talk down to you? Never 06/05/2024 How often does anyone, joey torres family and friends, threaten you with harm? Never 06/05/2024 How often does anyone, marlyschristopher torres family and friends, scream or curse at you? Never 06/05/2024 Food Answer Date Recorded Within the past 12 months, y ou worried that your food would run out before you got money to buy more. Never true 06/05/2024 Within the past 12 months, t he food you bought just didn't last and you didn't have money to get more. Never true 06/05/2024 Transportation Answer Date Recorded In the past 12 months, has l ack of reliable transportation kept you from medical appointments, meetings, work or from getting things needed for daily living? No 06/05/2024 Utilities Answer Date Recorded In the past 12 months has th e [employer], gas, oil, or water company threatened to shut off services in your home? No 06/05/2024 Education Answer Date Recorded Do you speak a language other than [place] at [facility]? No 06/05/2024 Do you want help with school or training? For example, starting or completing job training or getting a high school diploma, GED or equivalent. No 06/05/2024 Physical Activity Answer Date Recorded In the last 30 days, other t casey the activities you did for work, on average, how many days per week did you engage in moderate exercise (like walking fast, running, jogging, dancing, swimming, biking, or other similar activities)? 5 2023 On average, how many minutes did you usually spend exercising at this level on one of those days? 30 06/05/2024 Sex and Gender Information Value Date Recorded Sex Assigned at Not on file Gender Identity Female 08/04/2019 13:58 EST Sexual Orientation Not on file Last Filed Vital Signs Vital Sign Reading Time Taken Comments Blood Pressure 143/105 06/05/2024 1349 EDT Pulse 88 06/05/2024 1349 EDT Temperature 36.6 ??C (97.8 ??F) 12/22/2022 1540 EDT Respiratory Rate 20 06/05/2024 1349 EDT Oxygen Saturation 97% 11/18/2023 1542 EST Inhaled Oxygen Concentration - - Weight 114.8 kg (253 lb) 06/05/2024 1349 EDT Height 149.9 cm (4' 11) 02/08/2024 1548 EDT Body Mass Index 51.1 02/08/2024 1548 EDT Plan of Treatment Not on file Procedures Procedure Name Priority Date/Time Associated Diagnosis Comments POCT DRUG SCREEN, URINE Routine 06/05/2024 Chronic prescription opiate use POCT HEMOGLOBIN A1C Routine 06/05/2024 Type 2 diabetes mellitus with hyperglycemia, without long-term current use of insulin ([facility]) HEPATITIS C AB W REFLEX TO HCV RNA BY PCR Routine 07/02/2023 16:43 EDT Encounter for hepatitis C screening test for low risk patient LIPID PROFILE (INCLUDES CHOLESTEROL, TRIGLYCERIDES, HDL, LDL) Routine 07/02/2023 16:43 EDT Cigarette nicotine dependence without complication Encounter for long-term current use of medication Hyperglycemia from Last 3 Months or Most Recently Relevant to Health Maintenance Results * (ABNORMAL) POCT DRUG SCREEN, URINE (06/05/2024) Temperature, POC 92 ??F 90 - 100 ??F [facility] POINT OF CARE Creatinine, POC 20 mg/dL 20-200 mg/dL [facility] Specific [place], POC 1.005 1.005 - 1.025 [facility] POINT OF CARE pH, POC 7.0 4.0 - 9.0 [facility] POIN T OF CARE Amphetamine, POC Negative . [facility] POINT OF CARE Barbiturates, POC Negative . [facility] POINT OF CARE Buprenorphine , POC Negative . [facility] POINT OF CARE Benzodiazapen e, POC Preliminary positive, Result should be confirmed if clinically indicated(A) . [facility] POINT OF CARE Cocaine, POC Negative . [facility] P OINT OF CARE MDMA, POC Negative . [facility] POIN T OF CARE Methamphetami ne, POC Negative . [facility] POINT OF CARE Opiates 300, POC Preliminary positive, Result should be confirmed if clinically indicated(A) . [facility] POINT OF CARE Methadone, POC Negative . [facility] POINT OF CARE Oxycodone, POC Negative . [facility] POINT OF CARE PCP, POC Negative . [facility] POIN T OF CARE THC, POC Negative . [facility] POIN T OF CARE Urine URINE / Unknown 06/05/2024 Kayla Ambriz NP POINT OF CARE TEST ORDERABLES [facility] POINT OF CARE * (ABNORMAL) POCT HEMOGLOBIN A1C (06/05/2024) Hemoglobin A1c, POC 6.7(A) 5.7 % [facility] POINT OF CARE Blood CAPILLARY BLOOD / Unknown 06/05/2024 Kayla Ambriz NP POINT OF CARE TEST ORDERABLES Performing Organization Address City/[facility]/ZIP Co de Phone Number [facility] POINT OF CARE * HEPATITIS C AB W REFLEX TO HCV RNA BY PCR (07/02/2023 16:43 EDT) [facility] Hep C Antibody Negative Negative 07/02[facility]2023 19[facility] Blood VENOUS BLOOD / Unknown Venipuncture / Unknown 07/02/2023 16:43 EDT 07/02/2023 16:45 EDT Mia Alexander DO CHEMISTRY & BLOO D GAS ORDERABLES Performing Organization Address City/[facility]/ZIP Co de Phone Number [facility] [address] [place] [address] * (ABNORMAL) LIPID PROFILE (INCLUDES CHOLESTEROL, TRIGLYCERIDES, HDL, LDL) (07/02/2023 16:43 EDT) [facility] Cholesterol 164 <200 mg/dL 07/02/2023 18:27 [facility] Comment:Note that therapeuti c goals will differ between patients based on cardiac risk factors and current medical therapy. HDL 45(L) >=50 mg/dl 07/02/2023 18:27 [facility] Comment:Note that therapeuti c goals will differ between patients based on cardiac risk factors and current medical therapy. LDL, Calculated 65 <160 mg/dL 18:27 [facility] Comment:Note that therapeuti c goals will differ between patients based on cardiac risk factors and current medical therapy. Triglyceride 270(H) <=150 mg/dL 07/02/2023 18:27 [facility] Comment:Note that therapeuti c goals will differ between patients based on cardiac risk factors and current medical therapy. Chol/HDL Ratio 3.6 See Note 07/02/2023 18:27 [facility] Comment: NOTE: Desirable Ratio = <4.1 Patient At Risk Ratio = >5.0(Males) ?>6.0(Females) Non HDL Cholesterol 119 <160 mg/dL 07/02/2023 18:27 EDT [facility] Comment:Note that therapeuti c goals will differ between patients based on cardiac risk factors and current medical therapy. Blood VENOUS BLOOD / Unknown Venipuncture / Unknown 07/02/2023 16:43 EDT 07/02/2023 16:45 EDT Mia Alexander DO CHEMISTRY & BLOO D GAS ORDERABLES [facility] [address] [place] [address] from Last 3 Months or Most Recently Relevant to Health Maintenance Care Teams Security Systems Administrator Relationship Specialty Start Date End Date Mia Alexander DO [address] [place] [id number] PCP - General Family Medicine - Primary Care 01/29/23
--- OUTSIDE RECORDS SUMMARY | 2024-06-16 00:22 | XMS_ITS | Encounter Summary ---
Author Organization [facility] Address [address] [place] [address] Care Team Providers Care Antique Finisher Name Role Phone Mia Alexander Primary Care Provider + Reason for Referral * Radiology Services (Routine/Next Available) - Authorization Not Required Specialty Diagnoses / Procedures Referred By Susanne martínez Referred To Contact Diagnoses Encounter for screening mammogram for malignant neoplasm of breast Procedures MA BREAST SCREENING YANIV BILATERAL Kayla Ambriz NP [address] [facility] [facility] [address] [place] [address] [facility] Referral ID Status Reason Start Date Expiration Date Visits Requested Visits Authorized [id number] Authorization Not Required 06/05/2024 1 1 Reason for Visit * Reason Comments Follow-up Encounter Details Date Type Department Care Team (Late st Contact Info) Description 06/05/2024 14:15 EDT Office Visit [facility] Family Medicine - [place] [address] 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 I have a [facility] place to live 06/05/2024 Think about the [...] does anyone, joey torres family and friends, insult or talk down to you? Never 06/05/2024 How often does anyone, joey torres family and friends, threaten you with harm? Never 06/05/2024 How often does anyone, inclu ding family and friends, scream or curse at [...] the past 12 months has th e [employer], gas, oil, or water company threatened to shut off services in your home? No 06/05/2024 Education Answer Date Recorded Do you speak a language other than [facility]ali at [facility]? No 06/05/2024 Do you want help with [...] on file documented as of this encounter Last Filed Vital Signs Vital Sign Reading Time Taken Comments Blood Pressure 143/105 06/05/2024 1349 EDT Pulse 88 06/05/2024 1349 EDT Temperature - - Respiratory Rate 20 06/05/2024 1349 EDT Oxygen Saturation - - Inhaled Oxygen Concentration - - Weight 114.8 kg (253 lb) 06/05/2024 1349 EDT Height - - Body Mass Index 51.1 02/08/2024 1548 EDT documented in this encounter Patient Instructions * Patient Instructions* Kayla Ambriz NP - 06/05/2024 14:15 EDT Make an eye exam appt Make a Mammogram appt Call [facility] for women health to see if can schedule a pap Increase Metformin to 500 mg 2 times a day documented in this encounter Ordered Prescriptions Prescription Sig Dispensed Refills Start Date End Da te HYDROcodone-acetamin ophen (NORCO) 5-325 mg tabletIndications:Ch ronic pain syndrome Take 1 Tablet by mouth every 6 hours as needed for up to 28 days for Pain (only as needed for severe pain). Daily Max: 4 Tablets 112 Tablet 07/31/2024 08/28/2024 HYDROcodone-acetamin ophen (NORCO) 5-325 mg tabletIndications:Ch ronic pain syndrome Take 1 Tablet by mouth every 6 hours as needed for up to 28 days for Pain (only as needed for severe pain). Daily Max: 4 Tablets 112 Tablet 07/03/2024 07/31/2024 metFORMIN (GLUCOPHAGE-XR) 500 mg ER tabletIndications:Ty pe 2 diabetes mellitus with hyperglycemia, without long-term current use of insulin ([facility]) Take 2 Tablets by mouth daily with breakfast. 180 Tablet 3 06/05/2024 diclofenac (VOLTAREN) 75 mg EC tablet Take 1 Tablet by mouth 2 times daily. 180 Tablet 3 06/05/2024 11/27/2025 HYDROcodone-acetamin ophen (NORCO) 5-325 mg tabletIndications:Ch ronic pain syndrome Take 1 Tablet by mouth every 6 hours as needed for up to 28 days for Pain (only as needed for severe pain). 1 day early d/t transportation Daily Max: 4 Tablets 112 Tablet 06/05/2024 07/03/2024 documented in this encounter Progress Notes * Kayla Ambriz NP - 06/05/2024 1415 EDT Assessment/Plan: Dental Pain and Possible Infection Lower tooth pain with associated ear and eye discomfort. No fever or significant swelling. Urgent dental intervention needed. -Encouraged to schedule dental appointment as soon as possible. Sinus Congestion Symptoms of postnasal drip, sore throat, and ear discomfort. Possible allergic component. -Continue current medications and monitor symptoms. Eye Pain Pain on the side of the eye for approximately 1.5 weeks. No drainage. Possible glasses-related discomfort. -Recommended to schedule an eye exam. Episodic Nosebleeds Likely due to dry air and environmental factors. -Advised to maintain humidity in living environment and monitor for worsening symptoms. Chronic Pain Pain level reported as 2-3, manageable with current medications. No adverse effects reported. -Continue current pain management regimen. -VPMS no aberrancies, UDS and CSA updated today -F/u 3 mos Fatty Liver Enlarged liver noted on previous imaging at [facility]- in scans. No current abdominal pain. -Rec US for fibrosis screening and labs to assess Fib-4- pt declines at this time, wants to cont lifestyle changes. -Encourage regular exercise and adherence to a Mediterranean diet. -Plan for follow-up labs in 3 months to monitor liver function. Diabetes Type 2 without long-term use of insulin -A1c 6.7 today- up from 6.3 -Increase Metformin 500 mg BID -Cont low dose ozempic- can't vanita greater than 0.5 mg weekly -DM diet -Make eye appt, Foot exam today General Health Maintenance -Continue Ozempic 0.25mg weekly for diabetes management. -Continue Prozac 60mg for mood management. -Continue Ativan as needed for anxiety. -Increase Metformin to 500mg twice daily. -Continue Clofinec as needed for inflammation. -Discontinue iron and vitamin D supplements. -Encouraged to schedule mammogram and Pap smear. -Plan for follow-up in 3 months for pain management and liver function monitoring. Allie was seen today for follow-up. Diagnoses and all orders for this visit: Connective tissue disease overlap syndrome (HCC-CMS) Chronic prescription opiate use - POCT DRUG SCREEN, URINE Chronic pain syndrome - HYDROcodone-acetaminophen (NORCO) 5-325 mg tablet; Take 1 Tablet by mouth every 6 hours as neededfor up to 28 days for Pain (only as needed for severe pain). 1 day early d/t transportation Daily Max: 4 Tablets - HYDROcodone-acetaminophen (NORCO) 5-325 mg tablet; Take 1 Tablet by mouth every 6 hours as neededfor up to 28 days for Pain (only as needed for severe pain). Daily Max: 4 Tablets - HYDROcodone-acetaminophen (NORCO) 5-325 mg tablet; Take 1 Tablet by mouth every 6 hours as neededfor up to 28 days for Pain (only as needed for severe pain). Daily Max: 4 Tablets Type 2 diabetes mellitus with hyperglycemia, without long-term current use of insulin ([facility]) - POCT HEMOGLOBIN A1C - metFORMIN (GLUCOPHAGE-XR) 500 mg ER tablet; Take 2 Tablets by mouth daily with breakfast. Metabolic dysfunction-associated steatotic liver disease (MASLD) - COMPLETE BLOOD COUNT - COMPREHENSIVE METABOLIC PANEL (CMP); Future Immunization due Encounter for screening mammogram for malignant neoplasm of breast - MA BREAST SCREENING YANIV BILATERAL; Future Cervical cancer screening Other orders - diclofenac (VOLTAREN) 75 mg EC tablet; Take 1 Tablet by mouth 2 times daily. Kayla GREENWOOD 06/05/24 Subjective: I discussed with Allie Small the use of this audio recording tool to create a clinical note. I explained the benefits of the technology, such as time savings and a better patient experience. I explained that the recording will be confidential and converted into a written note which I will reviewand edit as needed before it is saved in the medical record. The patient expressed an understandingof the use of this technology for clinical documentation and agreed to allow its use for this encounter. Chief Complaint Patient presents with Follow-up History of Present Illness The patient, with a history of diabetes and fatty liver disease, presents with concerns about a possible tooth infection and ear pain. The patient reports that the tooth pain has been progressing to involve the throat, ear, and eye. The ear pain is described as a constant sensation of water in the ear. The patient denies any fever but reports experiencing congestion, postnasal drip, and a sore throat. The patient also reports occasional bloody noses and a cracked lip, attributing these to dry conditions at home. The patient also mentions a diagnosis of fatty liver disease seen on CT scan at [facility] (imaging note available but no ED visit note), which was diagnosed following a CT scan and ultrasound for suspected kidney stones. The patient reports experiencing pain in left low back/flank which was severe enough to affect breathing. The patient has made dietary changes since the diagnosis and is currently trying to walk three miles a day for exercise. The patient is currently on metformin and low dose ozempic for diabetes and reports no side effects. The patient reports experiencing vomiting with increased doses of ozempic. The patient also takes Prozac and Ativan as needed for mood. See below for pain management- ETIOLOGY OF CHRONIC PAIN: 1) ANALGESIA: 2-11/27 2) ADLs: normal 3) ADVERSE REACTIONS: none 4) ABERRANT BEHAVIOR: none 5) AFFECT: normal Chronic Pain Management Visit [place] Precautions: Effective treatment of this patient's pain requires use of opioid therapy. I have considered other therapy modalities and discussed the risks and benefits of opioid therapy with my patient Date of last RX Refill: 05/31/24 vicodin and 05/20/24 ativan Refill dates for today's visit: 06/06/24 vicodin 06/19/24 ativan Medication/sig/amount/ day rx: Hydrocodone/APAP 5-325 mg 4 times day #112 and ativan 1/2 tab a day as needed #14 month Date of last UDS: 07/02/23 Date of last VPMS query: today Prior to Admission medications Medication Sig Start Date End Date Taking? Authorizing Provider aspirin 81 mg EC tablet TAKE ONE TABLET BY MOUTH ONE TIME DAILY. 08/20/23 Mia Alexander DO atorvastatin (LIPITOR) 40 mg tablet TAKE ONE TABLET BY MOUTH ONE TIME DAILY 10/13/23 Cristóbal Alexander DO blood glucose test strips Brand: One Touch Ultra. To test once daily. Patient does not use insulin.03/14/24 Sue Yates MD colestipoL (COLESTID) 1 gram tablet Take 2 Tablets by mouth every morning AND 1 Tablet at bedtime. 04/12/24 Flaco Baker MD diclofenac (VOLTAREN) 75 mg EC tablet Take 1 Tablet by mouth 2 times daily. 12/21/22 06/13/24 Ayden Angulo MD ferrous sulfate 325 mg (65 mg iron) EC tablet TAKE ONE TABLET BY MOUTH ONCE DAILY 04/03/24 Kayla Ambriz, SEAFOOD FARMER FLUoxetine (PROZAC) 20 mg capsule Take 1 Capsule by mouth daily. With 40 mg fluoxetine for total daily dose of 60 mg 04/12/24 Flaco Baker MD FLUoxetine (PROZAC) 40 mg capsule TAKE ONE CAPSULE BY MOUTH ONE TIME DAILY 05/18/24 Sadiq Buck MD HYDROcodone-acetaminophen (NORCO) 5-325 mg tablet Take 1 Tablet by mouth every 6 hours as needed for Pain (only as needed for severe pain). Daily Max: 4 Tablets 05/31/24 Sue Kerns DNP hydrOXYzine (ATARAX) 10 mg tablet Take 1 Tablet by mouth every 8 hours as needed for Anxiety. 12/14/23 Sue Yates MD lancets Use 1 Lancet as directed daily. Brand: per formulary; test blood sugar once daily 11/24/23 Mia Alexander, LORazepam (ATIVAN) 0.5 mg tablet Take 1/2 Tabletby mouth daily as needed for Anxiety. Daily Max: 0.25 mg 05/11/24 Kayla Ambriz NP metFORMIN (GLUCOPHAGE-XR) 500 mg ER tablet Take 1 Tablet by mouth daily with breakfast 01/03/24 Kayla Ambriz NP methocarbamoL (ROBAXIN) 750 mg tablet Take 1 Tablet by mouth 3 times daily as needed for Muscle Spasms. 03/29/24 Flaco Baker MD naloxone (NARCAN) 4 mg/actuation nasal spray 0.1 mL by nasal route as needed for Opioid Reversal. 04/28/24 Sadiq Buck MD nystatin (MYCOSTATIN) powder APPLY 2 TIMES DAILY to affected areas under breasts and groin folds 05/24/24 Flaco Baker MD omeprazole (PRILOSEC) 20 mg capsule TAKE ONE CAPSULE BY MOUTH ONE TIME DAILY 07/26/23 Mia Alexander, ONETOUCH ULTRA2 METER Use 1 Strip as directed daily. 07/08/23 Sindy Shrestha MD ONETOUCH ULTRASOFT 2 LANCET 30 gauge misc Use 1 Lancet as directed daily. 07/08/23 Sindy Shrestha MD semaglutide (OZEMPIC) 0.25 mg or 0.5 mg (2 mg/3 mL) pen injector Inject 0.5 mg into the skin once aweek. 03/30/24 Sadiq Buck MD Review of Systems Review of Systems Constitutional: Negative for fever. HENT: Positive for congestion, ear pain, nosebleeds, postnasal drip and sore throat. Tooth pain right bottom molar Eyes: Positive for pain. Respiratory: Negative for cough and shortness of breath. Past Medical History: Diagnosis Date Prediabetes 09/05/2019 Stroke (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 Physical Exam: Physical Exam Constitutional: Appearance: Normal appearance. She is obese. HENT: Head: Normocephalic. Right Ear: Tympanic membrane normal. Left Ear: Tympanic membrane normal. Nose: Nose normal. Cardiovascular: Rate and Rhythm: Normal rate and regular rhythm. Pulses: Normal pulses. Dorsalis pedis pulses are 2+ on the right side and 2+ on the left side. Posterior tibial pulses are 2+ on the right side and 2+ on the left side. Heart sounds: Normal heart sounds. Pulmonary: Effort: Pulmonary effort is normal. Breath sounds: Normal breath sounds. Musculoskeletal: Cervical back: Normal range of motion. Feet: Right foot: Protective Sensation: 8 sites tested. 8 sites sensed. Toenail Condition: Right toenails are normal. Left foot: Protective Sensation: 8 sites tested. 8 sites sensed. Toenail Condition: Left toenails are normal. Lymphadenopathy: Cervical: No cervical adenopathy. Skin: General: Skin is warm and dry. Capillary Refill: Capillary refill takes 2 to 3 seconds. Neurological: General: No focal deficit present. Mental Status: She is alert and oriented to person, place, and time. Psychiatric: Mood and Affect: Mood normal. Behavior: Behavior normal. Thought Content: Thought content normal. Judgment: Judgment normal. Results for orders placed or performed in visit on 06/05/24 POCT HEMOGLOBIN A1C Result Value Ref Range Hemoglobin A1c, POC 6.7 (A) 5.7 % POCT DRUG SCREEN, URINE Result Value Ref Range Temperature, POC 92 ??F 90 - 100 ??F Creatinine, POC 20 mg/dL 20-200 mg/dL Specific [place], POC 1.005 1.005 - 1.025 pH, POC 7.0 4.0 - 9.0 Amphetamine, POC Negative . Barbiturates, POC Negative . Buprenorphine, POC Negative . Benzodiazapene, POC (A) . Preliminary positive, Result should be confirmed if clinically indicated Cocaine, POC Negative . MDMA, POC Negative . Methamphetamine, POC Negative . Opiates 300, POC (A) . Preliminary positive, Result should be confirmed if clinically indicated Methadone, POC Negative . Oxycodone, POC Negative . PCP, POC Negative . THC, POC Negative . documented in this encounter Plan of Treatment Scheduled Orders Name Type Priority Associated Diagnoses Orde r Schedule MA BREAST SCREENING YANIV BILATERAL Imaging Routine Encounter for screening mammogram for malignant neoplasm of breast Expected: 06/12/2024 (Approximate), Expires: 06/05/2026 COMPLETE BLOOD COUNT Lab Routine Metabolic dysfunction-associated steatotic liver disease (MASLD) Ordered: 06/05/2024 COMPREHENSIVE METABOLIC PANEL (CMP) Lab Routine Metabolic dysfunction-associated steatotic liver disease (MASLD) Expected: 06/06/2024 (Approximate), Expires: 09/03/2024 documented as of this encounter Procedures Procedure Name Priority Date/Time Associated Diagnosis Comments POCT DRUG SCREEN, URINE Routine 06/05/2024 Chronic prescription opiate use POCT HEMOGLOBIN A1C Routine 06/05/2024 Type 2 diabetes mellitus with hyperglycemia, without long-term current use of insulin ([facility]) documented in this encounter Results * (ABNORMAL) POCT DRUG SCREEN, URINE (06/05/2024) Temperature, POC 92 ??F 90 - 100 ??F [facility] POINT [facility] CARE Creatinine, POC 20 mg/dL 20-200 mg/dL [facility] POINT [facility] CARE Specific [place], POC 1.005 1.005 - 1.025 [facility] POINT [facility] C[facility] pH, POC 7.0 4.0 - 9.0 [facility] Amphetamine, POC Negative . [facility] Barbiturates, POC Negative . [facility] Buprenorphine , POC Negative . [facility] Benzodiazapen e, POC Preliminary positive, Result should be confirmed if clinically indicated(A) . [facility] Cocaine, POC Negative . [facility] P OINT OF CARE MDMA, POC Negative . [facility] Methamphetami ne, POC Negative . [facility] Opiates 300, POC Preliminary positive, Result should be confirmed if clinically indicated(A) . [facility] Methadone, POC Negative . [facility] Oxycodone, POC Negative . [facility] PCP, POC Negative . [facility] THC, POC Negative . [facility] Urine URINE / Unknown 06/05/2024 Kayla Ambriz NP POINT OF CARE TEST ORDERABLES Performing Organization Address [facility] Co de Phone Number [facility] POINT OF CARE * (ABNORMAL) POCT HEMOGLOBIN A1C (06/05/2024) Hemoglobin A1c, POC 6.7(A) 5.7 % [facility] Blood CAPILLARY BLOOD / Unknown 06/05/2024 Kayla Ambriz NP POINT OF CARE TEST ORDERABLES Performing Organization Address [facility] Co de Phone Number [facility] POINT OF CARE documented in this encounter Visit Diagnoses Diagnosis Connective tissue disease overlap syndrome (HCC-CMS)- Primary Other specified diffuse disease of connective tissue Chronic prescription opiate use Chronic pain syndrome Type 2 diabetes mellitus with hyperglycemia, without long-term current use of insulin (HCC-CMS) Metabolic dysfunction-associated steatotic liver disease (MASLD) Immunization due Need for prophylactic vaccination and inoculation against unspecified single disease Encounter for screening mammogram for malignant neoplasm of breast Other screening mammogram Cervical cancer screening Screening for malignant neoplasm of the cervix documented in this encounter Discontinued Medications Medication Sig Discontinue Reason Start Date End Da te ferrous sulfate 325 mg (65 mg iron) EC tabletIndications:Anem ia, unspecified type TAKE ONE TABLET BY MOUTH ONCE DAILY Patient Stopped Taking 04/03/2024 06/05/2024 diclofenac (VOLTAREN) 75 mg EC tablet Take 1 Tablet by mouth 2 times daily. Reorder 12/21/2022 06/05/2024 metFORMIN (GLUCOPHAGE-XR) 500 mg ER tabletIndications:Type 2 diabetes mellitus with hyperglycemia, without long-term current use of insulin ([facility]) Take 1 Tablet by mouth daily with breakfast Reorder 01/03/2024 06/05/2024 HYDROcodone-acetaminop hen (NORCO) 5-325 mg tabletIndications:Supervisor Title estee pain syndrome Take 1 Tablet by mouth every 6 hours as needed for Pain (only as needed for severe pain). Daily Max: 4 Tablets Reorder 05/31/2024 06/05/2024 documented as of this encounter Care Teams Antique Finisher Relationship Specialty Start Date End Date Mia Alexander DO [address] [place] [address] [phone] PCP - General Family Medicine - Primary Care 01/29/23 documented as of this encounter
--- OUTSIDE RECORDS SUMMARY | 2024-06-16 00:22 | XMS_ITS | Encounter Summary ---
Author Organization [facility] Address [address] [place] [address] Care Team Providers Care Real Estate Paralegal Name Role Phone Mia Alexander DO Primary Care Provider + Reason for Visit * Reason Comments Medications Refill Encounter Details Date Type Department Care Team (Late st Contact Info) Description 04/03/2024 Refill [facility] Family Medicine [address], [facility] [address] [place] [address] Mia Alexander DO [address] [facility] [address] [place] [address] Medications Refill Social History Tobacco Use Types Packs/Day Years [...] Dispensed Refills Start Date End Da te ferrous sulfate 325 mg (65 mg iron) EC tabletIndications:Anemia, unspecified type TAKE ONE TABLET BY MOUTH ONCE DAILY 90 Tablet 3 04/03/2024 06/05/2024 documented in this encounter Miscellaneous Notes * Telephone Encounter - Steffanie Soler, RN - 04/03/20242020 EDT Medication Refill Request Med: ferrous sulfate 325 mg EC, 1 tab QD Pharmacy: [place], [place] Last visit: 02/08/24 Next visit: 05/11/24 last iron labs - 07/02/23 Rx(s) escribed to pharmacy. documented in this encounter Plan of Treatment Not on file documented as of this encounter Visit Diagnoses Diagnosis Anemia, unspecified type- Primary documented in this encounter Discontinued Medications Medication Sig Discontinue Reason Start Date End Da te ferrous sulfate 325 mg (65 mg iron) EC tabletIndications:Anemia, unspecified type Take 1 Tablet by mouth daily. 07/07/2023 04/03/2024 documented as of this encounter Care Teams Real Estate Paralegal Relationship Specialty Start Date End Date Mia Alexander DO [address] [place] [address] [phone] PCP - General Family Medicine - Primary Care 01/29/23 documented as of this encounter
--- OUTSIDE RECORDS SUMMARY | 2024-06-16 00:22 | XMS_ITS | Encounter Summary ---
Author Organization [facility] Address [address] [place] [address] Care Team Providers Care Mud Worker Name Role Phone Mia Alexander Primary Care Provider + Reason for Visit * Reason Onset Date Comments Framing Mechanic Message 05/06/2024 Encounter Details Date Type Department Care Team (Late st Contact Info) Description 05/06/2024 Telephone [facility] Medicine [address] [address] Ramy Taylor MD [address] [place] [address] [phone] Framing Mechanic Message Social History Tobacco Use Types Packs/Day Years [...] encounter Miscellaneous Notes * Telephone Encounter - Kayla Ambriz NP - 05/08/2024 1054 EDT Noted. Thanks * Telephone Encounter - Ramy Taylor MD - 05/06/2024 1023 EDT Pt asking if she can take methocarbamol and her [place] together. Reviewed with her that there's no contraindication but potential for over sedation with both. She reports only taking 1/2 tablet of 750 mg methocarbamol. I advised taking 1 or 2 tablets for 2-3 days. Should not be a daily medication. documented in this encounter Plan of Treatment Not on file documented as of this encounter Visit Diagnoses Not on filedocumented in this encounter Care Teams Mud Worker Relationship Specialty Start Date End Date Mia Alexander DO [address] [place] [address] [phone] PCP - General Family Medicine - Primary Care 01/29/23 documented as of this encounter
--- OUTSIDE RECORDS SUMMARY | 2024-06-16 00:22 | XMS_ITS | Encounter Summary ---
Author Organization [facility] Address [address] [place] [address] Care Team Providers Care Photographer Helper Name Role Phone Mia Alexander DO Primary Care Provider + Reason for Visit * Reason Comments Medications Refill Encounter Details Date Type Department Care Team (Late st Contact Info) Description 04/22/2024 Refill [facility] Family Medicine [facility] [address] [facility] [place] [address] [place] [address] Sue Yates MD 246 [facility] [address] [place] [phone] Medications Refill Social History Tobacco [...] Dispensed Refills Start Date End Da te LORazepam (ATIVAN) 0.5 mg tabletIndications:Chroni c pain syndrome Take 1/2 Tabletby mouth daily as needed for Anxiety. Daily Max: 0.25 mg 14 Tablet 04/24/2024 05/11/2024 documented in this encounter Miscellaneous Notes * Telephone Encounter - Steffanie Soler, RN - 04/24/2024 1125 EDT Controlled Medication Refill Request Med: lorazepam 0.5 mg, 1/2 tab QD PRN anxiety Pharmacy: [place], [place] Last visit: 02/08/24 Next visit: 05/11/24 CSA: 07/02/23 UDS: 07/02/23 Last rx - 03/22/24, #14 for 28 days NR VPMS - Last picked up: 03/22/24, #14 Next Due: now OK to renew? documented in this encounter Plan of Treatment Not on file documented as of this encounter Visit Diagnoses Diagnosis Chronic pain syndrome documented in this encounter Discontinued Medications Medication Sig Discontinue Reason Start Date End Da te LORazepam (ATIVAN) 0.5 mg tabletIndications:Chroni c pain syndrome Take 0.5 Tablets by mouth daily as needed for Anxiety. Daily Max: 0.25 mg 03/22/2024 04/24/2024 documented as of this encounter Care Teams Photographer Helper Relationship Specialty Start Date End Date Mia Alexander DO [address] [place] [address] [phone] PCP - General Family Medicine - Primary Care 01/29/23 documented as of this encounter
--- OUTSIDE RECORDS SUMMARY | 2024-06-16 00:22 | XMS_ITS | Encounter Summary ---
Author Organization [facility] Address [address] [place] [address] Care Team Providers Care Flight Attendant/Inflight Manager Name Role Phone Mia Alexander Primary Care Provider + Reason for Visit * Reason Onset Date Comments Medications Refill 04/26/2024 Encounter Details Date Type Department Care Team (Late st Contact Info) Description 04/26/2024 Refill [facility] Family Medicine [address], [facility] 2 [place] [address] Kayla Ambriz, COIN BOX INSPECTOR 246 [facility] [place] [address] [place] [address] Medications Refill Social History Tobacco [...] Dispensed Refills Start Date End Da te naloxone (NARCAN) 4 mg/actuation nasal spray 0.1 mL by nasal route as needed for Opioid Reversal. 1 Each 1 04/28/2024 HYDROcodone-acetaminophe n (NORCO) 5-325 mg tabletIndications:Chroni c pain syndrome Take 1 Tablet by mouth every 6 hours as needed for up to 28 days for Pain (only as needed for severe pain). Daily Max: 4 Tablets 112 Tablet 05/03/2024 05/24/2024 documented in this encounter Miscellaneous Notes * Telephone Encounter - Debbie Linda LPN - 04/27/2024 1551 EDT Controlled Medication Refill Request Medication and dose: hydrocodone Verified: Yes Pharmacy verified: Yes Last visit: 02/08/2024 Next visit: 05/11/2024 CSA: UTD (07/02/2023) UDS: UTD (07/02/2023) Date prescription due: 05/03/2024 VPMS: Med: Hydrocodone-Acetaminophen 5-325mg Date Last Filled: 04/05/2024 Quantity: #112 tabs (28d supply) Pended with appropriate fill date of 05/03/2024. Pt is weaning down dosage of benzo, but still usingconcurrently with opioid. Due for new naloxone Rx per protocol. Pended. documented in this encounter Plan of Treatment Not on file documented as of this encounter Visit Diagnoses Diagnosis Chronic pain syndrome- Primary documented in this encounter Discontinued Medications Medication Sig Discontinue Reason Start Date End Da te HYDROcodone-acetaminophe n (NORCO) 5-325 mg tabletIndications:Chroni c pain syndrome Take 1 Tablet by mouth every 6 hours as needed for up to 28 days for Pain (only as needed for severe pain). Daily Max: 4 Tablets Reorder 04/05/2024 04/28/2024 naloxone (NARCAN) 4 mg/actuation nasal spray 0.1 mL by nasal route as needed for Opioid Reversal. Reorder 03/31/2022 04/27/2024 HYDROcodone-acetaminophe n (NORCO) 5-325 mg tabletIndications:Chroni c pain syndrome Take 1 Tablet by mouth every 6 hours as needed for up to 28 days for Pain (only as needed for severe pain). Daily Max: 4 Tablets Reorder 02/09/2024 04/26/2024 documented as of this encounter Care Teams Flight Attendant/Inflight Manager Relationship Specialty Start Date End Date Mia Alexander DO [address] [place] [phone] PCP - General Family Medicine - Primary Care 01/29/23 documented as of this encounter
--- OUTSIDE RECORDS SUMMARY | 2024-06-16 00:22 | XMS_ITS | Encounter Summary ---
Author Organization [facility] Address [address] [place] [address] Care Team Providers Care Weed Controller Name Role Phone Mia Alexander DO Primary Care Provider + Reason for Visit * Reason Onset Date Comments Medication Problem 02/09/2024 Encounter Details Date Type Department Care Team (Late st Contact Info) Description 02/09/2024 Telephone [facility] [place] [address], [facility] 2 [place] [address] Mia Alexander DO 246 [facility] [address] [place] [phone] Medication Problem Social History Tobacco Use Types Packs/Day Years [...] encounter Miscellaneous Notes * Telephone Encounter - Kriss Jacobs RN - 02/09/2024 1653 EDT Spoke to pharm. Reviewed VPMS over the phone w pharmacist to confirm last script and machine operator picker date. Last filled 01/13for 30d, w next due date of 02/14. Pharm policy is earliest machine operator picker is 2d prior, or 02/12. With JFW note indicating an additional early fill of 1d, earliest machine operator picker is 02/10. Relayed above information to pt. Verbalized understanding. * Telephone Encounter - Preeti Roberto - 02/09/2024 165 EDT Patient is unable to fill HYDROcodone-acetaminophen (NORCO) 5-325 mg tablet today until nurse givesverbal okay to fill today. RN is calling pharmacy now documented in this encounter Plan of Treatment Not on file documented as of this encounter Visit Diagnoses Not on filedocumented in this encounter Care Teams Weed Controller Relationship Specialty Start Date End Date Mia Alexander DO [address] [place] [address] [phone] PCP - General Family Medicine - Primary Care 01/29/23 documented as of this encounter
--- OUTSIDE RECORDS SUMMARY | 2024-06-16 00:22 | XMS_ITS | Encounter Summary ---
Author Organization [facility] Address [address] [place] [address] Care Team Providers Care Mailmaster Name Role Phone Mia Alexander DO Primary Care Provider + Reason for Visit * Reason Onset Date Comments Medications Refill 01/12/2024 Encounter Details Date Type Department Care Team (Late st Contact Info) Description 01/12/2024 Refill [facility] Family Medicine [address], [facility] 2 [place] [address] Mia Alexander DO [address] [place] [address] [address] [place] [phone] Medications Refill Social History Tobacco [...] encounter Miscellaneous Notes * Telephone Encounter - Priscilla Milton RN - 01/12/2024 1608 EDT Rx sent and confirmed at pharmacy on 01/03/2024 Please cancel rx documented in this encounter Plan of Treatment Not on file documented as of this encounter Visit Diagnoses Diagnosis Type 2 diabetes mellitus with hyperglycemia, without long-term current use of insulin ([facility]) documented in this encounter Care Teams Mailmaster Relationship Specialty Start Date End Date Mia Alexander DO [address] [place] [address] [phone] PCP - General Family Medicine - Primary Care 01/29/23 documented as of this encounter
--- OUTSIDE RECORDS SUMMARY | 2024-06-16 00:22 | XMS_ITS | Encounter Summary ---
Author Organization [facility] Address [address] [place] [address] Care Team Providers Care Computer Sciences Professor Name Role Phone Mia Alexander Primary Care Provider + Reason for Visit * Reason Comments Medications Refill Encounter Details Date Type Department Care Team (Late st Contact Info) Description 04/12/2024 Refill [facility] Family Medicine [facility] 246 [facility], [place] [address] [place] [address] Sue Yates MD 246 [facility] [place] [address] [place] [phone] Medications Refill Social History Tobacco [...] Dispensed Refills Start Date End Da te colestipoL (COLESTID) 1 gram tabletIndications:Postcho lecystectomy diarrhea Take 2 Tablets by mouth every morning AND 1 Tablet at bedtime. 90 Tablet 04/12/2024 documented in this encounter Miscellaneous Notes * Telephone Encounter - Debbie Linda LPN - 04/12/2024 9287 EDT Medication Refill Request Medication and dose: Colestid Verified: Yes Pharmacy verified: Yes Last visit: 02/08/2024 Next visit: 05/11/2024 documented in this encounter Plan of Treatment Not on file documented as of this encounter Visit Diagnoses Diagnosis Postcholecystectomy diarrhea- Primary Other postoperative functional disorders documented in this encounter Discontinued Medications Medication Sig Discontinue Reason Start Date End Da te colestipoL (COLESTID) 1 gram tabletIndications:Postch olecystectomy diarrhea Take 2 Tablets by mouth every morning AND 1 Tablet at bedtime 01/11/2024 04/12/2024 documented as of this encounter Care Teams Computer Sciences Professor Relationship Specialty Start Date End Date Mia Alexander DO [address] [place] [address] [phone] PCP - General Family Medicine - Primary Care 01/29/23 documented as of this encounter
--- OUTSIDE RECORDS SUMMARY | 2024-06-16 00:22 | XMS_ITS | Encounter Summary ---
Author Organization [facility] Address [address] [place] [address] Care Team Providers Care Powder Loader Name Role Phone Mia Alexander DO Primary Care Provider + Reason for Visit * Reason Comments Medications Refill Encounter Details Date Type Department Care Team (Late st Contact Info) Description 05/18/2024 Refill [facility] Family Medicine [address], [facility] 2 [place] [address] Mia Alexander DO 246 [facility] [address] [place] [phone] Medications Refill Social History Tobacco [...] Dispensed Refills Start Date End Da te FLUoxetine (PROZAC) 40 mg capsule TAKE ONE CAPSULE BY MOUTH ONE TIME DAILY 90 Capsule 3 05/18/2024 documented in this encounter Miscellaneous Notes * Telephone Encounter - Steffanie Soler, RN - 05/18/20241943 EDT Medication Refill Request Med: fluoxetine 40 mg, 1 cap QD Pharmacy: [place], [place] Last visit: 02/08/24 Next visit: 06/05/24 Rx(s) escribed to pharmacy. documented in this encounter Plan of Treatment Not on file documented as of this encounter Visit Diagnoses Not on filedocumented in this encounter Discontinued Medications Medication Sig Discontinue Reason Start Date End Da te FLUoxetine (PROZAC) 40 mg capsule TAKE ONE CAPSULE BY MOUTH ONE TIME DAILY 04/14/2023 05/18/2024 documented as of this encounter Care Teams Powder Loader Relationship Specialty Start Date End Date Mia Alexander DO [address] [place] [address] [phone] PCP - General Family Medicine - Primary Care 01/29/23 documented as of this encounter
--- OUTSIDE RECORDS SUMMARY | 2024-06-16 00:22 | XMS_ITS | Encounter Summary ---
Author Organization [facility] Address [address] [place] [address] Care Team Providers Care Flagman Name Role Phone Mia Alexander Primary Care Provider + Reason for Visit * Reason Onset Date Comments Medications Refill 05/11/2024 Lorazepam inc rease Encounter Details Date Type Department Care Team (Late st Contact Info) Description 05/11/2024 Refill [facility] Family Medicine [facility] 246 [facility], [place] [address] [place] [address] Sue Yates MD 246 [facility] [address] [place] [phone] Medications Refill (Lorazepam increase) Social History Tobacco Use Types Packs/Day Years [...] End Da te LORazepam (ATIVAN) 0.5 mg tabletIndications:Chronic pain syndrome Take 1/2 Tabletby mouth daily as needed for Anxiety. Daily Max: 0.25 mg 14 Tablet 05/11/2024 documented in this encounter Miscellaneous Notes * Telephone Encounter - Kayla Ambriz NP - 05/11/2024 1638 EDT No dose increase without a visit. Hasn't kept 3 mo f/u. Should use hydroxyzine in place of ativan. Thanks * Telephone Encounter - Gage Ford MA - 05/11/2024 1448 EDT Controlled Medication Refill Request Medication and dose: Lorazepam 0.5 mg tab Verified: Yes Pharmacy verified: Yes Last visit: 02/08/2024 Next visit: 06/05/2024 CSA: UTD UDS: UTD Date prescription due: Normally due 05/22/24 VPMS: Med: Lorazepam 0.5 mg tab Date Last Filled: 04/24/24 Quantity: #14 for 28 days Please see message pertaining to pt wanting to increase their Lorazepam. Please review/advise. documented in this encounter Plan of Treatment Not on file documented as of this encounter Visit Diagnoses Diagnosis Chronic pain syndrome- Primary documented in this encounter Discontinued Medications Medication Sig Discontinue Reason Start Date End Da te LORazepam (ATIVAN) 0.5 mg tabletIndications:Chron ic pain syndrome Take 1/2 Tabletby mouth daily as needed for Anxiety. Daily Max: 0.25 mg Reorder 04/24/2024 05/11/2024 documented as of this encounter Care Teams Flagman Relationship Specialty Start Date End Date Mia Alexander DO [address] [place] [phone] PCP - General Family Medicine - Primary Care 01/29/23 documented as of this encounter
--- OUTSIDE RECORDS SUMMARY | 2024-06-16 00:22 | XMS_ITS | Encounter Summary ---
Author Organization [facility] Address [address] [place] [address] Care Team Providers Care Apron Operator Name Role Phone CatherineMia DO Primary Care Provider + Reason for Visit * Reason Comments Medications Refill Encounter Details Date Type Department Care Team (Late st Contact Info) Description 04/12/2024 Refill [facility] Family Medicine [address], [facility] 2 [place] [address] Mia Alexander DO 246 [facility] [address] [place] [phone] Medications Refill Social History Tobacco [...] Start Date End Da te FLUoxetine (PROZAC) 20 mg capsuleIndications:Gene ralized anxiety disorder with panic attacks,Recurrent major depressive disorder, in full remission (HCC-CMS) Take 1 Capsule by mouth daily. With 40 mg fluoxetine for total daily dose of 60 mg 90 Capsule 3 04/12/2024 documented in this encounter Miscellaneous Notes * Telephone Encounter - Debbie Linda LPN - 04/12/2024 7380 EDT Medication Refill Request Medication and dose: fluoxetine Verified: Yes Pharmacy verified: Yes Last visit: 02/08/2024 Next visit: 04/12/2024 documented in this encounter Plan of Treatment Not on file documented as of this encounter Visit Diagnoses Diagnosis Generalized anxiety disorder with panic attacks Recurrent major depressive disorder, in full remission (HCC-CMS) documented in this encounter Discontinued Medications Medication Sig Discontinue Reason Start Date End Da te FLUoxetine (PROZAC) 20 mg capsuleIndications:Gen eralized anxiety disorder with panic attacks,Recurrent major depressive disorder, in full remission (HCC-CMS) Take 1 Capsule by mouth daily. With 40 mg fluoxetine for total daily dose of 60 mg 11/24/2023 04/12/2024 documented as of this encounter Care Teams Apron Operator Relationship Specialty Start Date End Date Mia Alexander DO [address] [place] [address] [phone] PCP - General Family Medicine - Primary Care 01/29/23 documented as of this encounter
--- OUTSIDE RECORDS SUMMARY | 2024-06-16 00:22 | XMS_ITS | Encounter Summary ---
Author Organization [facility] Address [address] [place] [address] Care Team Providers Care Laundry Equipment Operator Name Role Phone Mia Alexander DO Primary Care Provider + Reason for Visit * Reason Onset Date Comments Appointment Related 06/05/2024 Encounter Details Date Type Department Care Team (Late st Contact Info) Description 06/05/2024 Telephone [facility] [place] [address], [facility] 2 [place] [address] Mia Alexander DO 246 [facility] [place] [address] [place] [phone] Appointment Related Social History Tobacco Use Types Packs/Day Years [...] your living situation today? I have a [facility] place to live 06/05/2024 Think about the [...] harm? Never 06/05/2024 How often does anyone, joey torres family and friends, scream or curse [...] In the past 12 months has th [employer], gas, oil, or water [employer] threatened to shut off services in your home? No 06/05/2024 Education Answer Date Recorded Do you speak a language other than [place] at [facility]? No 06/05/2024 Do you want help with [...] encounter Miscellaneous Notes * Telephone Encounter - Jose R Malcolm - 06/05/2024 1616 EDT Called pt and phone not setup. Letter sent Return in about 3 months (around 09/04/2024) for CPM, Chronic conditions. documented in this encounter Plan of Treatment Not on file documented as of this encounter Visit Diagnoses Not on filedocumented in this encounter Care Teams Laundry Equipment Operator Relationship Specialty Start Date End Date Mia Alexander DO [address] [place] [address] [phone] PCP - General Family Medicine - Primary Care 01/29/23 documented as of this encounter
--- OUTSIDE RECORDS SUMMARY | 2024-06-16 00:22 | XMS_ITS | Encounter Summary ---
Author Organization [facility] Address [address] [place] [address] Care Team Providers Care Cream Buyer Name Role Phone Mia Alexander DO Primary Care Provider + Reason for Visit * Reason Onset Date Comments Knee Pain 01/27/2024 Encounter Details Date Type Department Care Team (Late st Contact Info) Description 01/27/2024 Telephone [facility] Family Medicine - [address], [place] [address] [place] [address] Mia Alexander DO 246 [facility] [address] [place] [phone] Knee Pain Social History Tobacco Use Types Packs/Day Years [...] Telephone Encounter - Sue Orozco RN - 01/27/2024 1352 EDT Spoke w/ pt. She reports it has been 3 weeks since fall and she is still having pain and swelling. She is able to bear weight but it is painful. Recommended pt go to EC for eval. Pt agrees. * Telephone Encounter - Smiley Cedeno - 01/27/2024 1105 EDT Patient fell when she was walking down porch steps a few weeks ago. She's tried pain medicine, muscle relaxer's & knee brace. She's still has knee pain & swelling. She's wondering if she should go to ED. documented in this encounter Plan of Treatment Not on file documented as of this encounter Visit Diagnoses Not on filedocumented in this encounter Care Teams Cream Buyer Relationship Specialty Start Date End Date Mia Alexander DO [address] [place] [phone] PCP - General Family Medicine - Primary Care 01/29/23 documented as of this encounter
--- OUTSIDE RECORDS SUMMARY | 2024-06-16 00:22 | XMS_ITS | Clinical Summary ---
Author Organization [facility] Address [address] [place] [address] Care Team Providers Care Public Health Assistant Name Role Phone Mia Alexander Primary Care Provider + Allergies Active Allergy Reactions Criticality Noted Date Comments Amoxicillin-Pot Clavulanate GI upset Low 10/07/19 22 Oxycodone Itching Low 07/02/2023 Medications Medication Sig Dispensed Refills Start Date End Date Status omeprazole (PRILOSEC) 20 mg capsule TAKE ONE CAPSULE BY MOUTH ONE TIME DAILY 90 Capsule 3 3 Active aspirin 81 mg EC tabletIndicatio ns:Cerebrovascu lar accident (CVA), unspecified mechanism (HCC-CMS) TAKE ONE TABLET BY MOUTH ONE TIME [...] hyperglycemia, without long-term current use of insulin ([facility]) Brand: One Touch Ultra. To test [...] nt major depressive disorder, in full remission ([facility]) Take 1 Capsule by mouth daily. [...] hyperglycemia, without long-term current use of insulin ([facility]) Take 2 Tablets by mouth daily with [...] hyperglycemia, without long-term current use of insulin ([facility]) Take 1 Tablet by mouth daily with breakfast 90 Tablet 4 024 Discontinued(Re order) ferrous sulfate 325 [...] the original. Patient has given permission for [facility] to verbally discuss the following information with [...] hyperglycemia, without long-term current use of insulin ([facility]) 11/18/2023 Chronic pain syndrome 07/02/2023 Postcholecystectomy diarrhea [...] (BMI) of 50.0 to 59.9 in adult ([facility]) 09/05/2019 Connective tissue disease overlap syndrome ([facility]) 09/05/2019 History of CVA (cerebrovascular accident) 2018 [...] of major depressive disorder without prior episode (HCC-CMS) 08/04/2019 11/09/2022 Encounters Date Type Department Care Team Description 06/05/2024 14:15 EDT Office Visit [facility] [address], [facility] [address] [place] [address] Kayla Ambriz, BELL Connective tissue disease overlap syndrome (HCC-CMS) (Primary Dx); Chronic prescription opiate use; Chronic pain syndrome; Type 2 diabetes mellitus with hyperglycemia, without long-term current use of insulin (HCC-CMS); Metabolic dysfunction-associate d steatotic liver disease (MASLD); Immunization due; Encounter for screening mammogram for malignant neoplasm of breast; Cervical cancer screening 06/05/2024 Telephone [facility] [address], [place] [address] [place] [address] Mia Alexander, Appointment Related 05/24/2024 Telephone [facility] [address], [place] [address] [place] [address] Mia Alexander, DO Medications Refill (Pt is out of RX); Other (Yeast on stomach) 05/24/2024 Refill [facility] [address], [place] [address] [place] [address] Sadiq Buck MD Medications Refill 05/18/2024 Refill [facility] [address], [place] [address] [place] [address] Mia Alexander, DO Medications Refill 05/15/2024 Telephone [facility] [address], [place] [address] [place] [address], [place] [address] Mia Alexander, DO Medications Refill (Diflucan) 05/11/2024 Refill [facility] [address], [address] [place] [address] Sue Yates MD Medications Refill (Lorazepam increase) 05/10/2024 Telephone [facility] [address], [address] [place] [address] Mia Alexander, DO Follow-up 05/06/2024 Telephone [facility] [address] [facility], [place] [id number] Ramy Taylor MD Fraud Analyst Message 04/26/2024 Refill [facility] [address], [place] [address] [place] [address] Kayla Ambriz NP Medications Refill 04/22/2024 Refill [facility] [address], [facility] [address] [place], [place] [phone] Sue Yates MD Medications Refill 04/19/2024 Refill [facility] [address], [address], [place] [id number] Sue Yates MD Medications Refill 04/12/2024 Refill [facility] [address], [place] [address] [place] [address] Sue Yates MD Medications Refill 04/12/2024 Refill [facility] [address], [place] [address] [place] [address] Mia Alexander, DO Medications Refill 04/03/2024 Refill [facility] [address], [place] [address] [place] [address] Mia Alexander, DO Medications Refill 03/30/2024 Refill [facility] [address], [place] [address] [place] [address] Sue Kerns DNP Medications Refill 03/29/2024 Telephone [facility] [address], [place] [address] [place] [address] Mia Alexander, DO Medications Refill; Medical Records 03/21/2024 Refill [facility] [address], [place] [address] [place] [address] Emma Conteh, SAMPLE PASTER Medications Refill from Last 3 Months Immunizations Name Administration Dates Next Due Covid-19 mRNA Vaccine (MODER NA COVID-19) PF 0.5 ml IM (12 yrs+) 01/18/2021,12/21/2020 Hepatitis A Vaccine Adult (HAVRIX/VAQTA) IM 10/22 Hepatitis B Vaccine (HEPLISAV-B) Adult IM 2 Dose 11/18/2023 Influenza Vaccine =>3yo Split Preservative Free IM 07/28/2010 Influenza Vaccine Quad (AFLURIA) PF 0.5 ml IM (3 yrs+) 07/04/2018 Tdap Vaccine =>7YO IM 08/21/2013 Surgical History Surgery Date Site/Laterality Comments CHOLECYSTECTOMY 09/20/2000 - 09/19/2001 N/A TUBAL LIGATION 09/20/2002 - 09/19/2003 Bilateral OVARY REMOVAL 09/20/2002 - 09/19/2003 Right TONSILLECTOMY 12/20/2006 Bilateral due to chronic tonsillitis LEEP 02/18/2006 - 03/19/2006 N/A [facility] biopsy, ABBI I and II LITHOTRIPSY 08/11/2005 Right ESWL for R ureteral stone Medical History Medical History Date Comments Tobacco dependence syndrome 09/05/2019 Stroke (HCC-CMS) Left Midbrain I nfarcts; 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 I have a [facility] place to live 06/05/2024 Think about [...] Recorded In the past 12 months has [facility], gas, oil, or water [employer] threatened to shut off services in your home? No 06/05/2024 Education Answer Date Recorded Do you speak a language other than [facility]? No 06/05/2024 Do you want help [...] 13:58 EST Sexual Orientation Not on file Obstetrics History Last Filed Vital Signs Vital Sign Reading [...] 51.1 02/08/2024 1548 EDT Plan of Treatment Health Maintenance Due Date Last Done Comments Eye Exam 1979 Microalbumin/Creatinine Ratio 1979 HIV Screening 1995 Advance Directive 1997 Preventive Care Visit 1997 Cervical Cancer Screening 2000 Pap Smear (Cervical Cancer Screening) 2000 HPV/Cotest (Cervical Cancer Screening) 2009 Breast Cancer Screening 2019 Current Opioid Misuse Measurement 11/13/2020 Pill Count 11/13/2020 Influenza Immunization (Adult) (#1) 2024 07/04/2018, 07/28/2010 Lipid Profile Screening (Cholesterol) 07/02/2024 07/02/2023 Prescription Agreement 07/02/2024 07/02/2023 Opioid Informed Consent 07/05/2024 07/05/2023 [place] Prescription Monitoring System 11/17/2024 11/18/2023, 11/13/2020 Hemoglobin A1C (Ha1C) 12/03/2024 06/05/2024 , 02/08/2024, 11/18/2023, Additional history exists COVID-19 Vaccine ( season) 2025 01/18/2021, 12/21/2020 Postponed from 05/21/2024 (Patient Declined) Depression Screening 06/05/2025 06/05/2024 Foot Exam 06/05/2025 06/05/2024 Pneumococcal Immunization (1 of 2 - PCV) 06/05/2025 Postponed from 1985 (Patient Declined) Social Determinants Of Health (SDOH) 06/05/2025 06/05/2024 Tetanus (Adult) Immunization 06/05/2025 08/21/2013 Postponed from 08/21/2023 (Patient Declined) Urine Drug Screen 06/05/2025 06/05/2024, , 02/07/2021 Pertussis (Adult) Immunization Completed 08/21/2013 Hepatitis C Screen Completed 07/02/2023 Hepatitis B Vaccine Discontinued 11/18/2023 Functional Assessment Discontinued HPV Vaccines Aged Out No longer eligi ble based on patient's age to complete this topic Review Of Systems Adverse Effects Discontinued Procedures Procedure Name Priority Date/Time Associated Diagnosis Comments POCT DRUG SCREEN, URINE Routine 06/05/2024 Chronic prescription opiate use POCT HEMOGLOBIN A1C Routine 06/05/2024 Type 2 diabetes mellitus with hyperglycemia, without long-term current use of insulin ([facility]) HEPATITIS C AB W REFLEX TO [...] POC 92 ??F 90 - 100 ??F [facility] POINT OF CARE Creatinine, POC 20 mg/dL 20-200 mg/dL [facility] POINT OF CARE Specific Vesper, POC 1.005 1.005 - 1.025 [facility] POINT OF CARE pH, POC 7.0 4.0 [...] should be confirmed if clinically indicated(A) . [facility] POINT OF CARE Methadone, POC Negative . [facility] POINT OF CARE Oxycodone, POC Negative . [facility] POINT OF CARE PCP, POC Negative . [facility] POIN T OF CARE THC, POC Negative . [facility] POIN T OF CARE Urine URINE / Unknown 06/05/2024 Kayla Ambriz NP POINT OF CARE TEST ORDERABLES [facility] POINT OF CARE * (ABNORMAL) POCT HEMOGLOBIN A1C (06/05/2024) Pathologist [facility] Hemoglobin A1c, POC 6.7(A) 5.7 % [facility] POINT OF CARE Blood CAPILLARY BLOOD / Unknown 06/05/2024 Kayla Ambriz NP POINT OF CARE TEST ORDERABLES Performing Organization Address City/[facility]/ZIP Co de Phone Number [facility] POINT OF CARE * HEPATITIS C AB W REFLEX TO HCV RNA BY PCR (07/02/2023 16:43 EDT) Pathologist [facility] Hep C Antibody Negative Negative 07/02/2023 19:12 EDT [facility] Blood VENOUS BLOOD / Unknown Venipuncture / Unknown 07/02/2023 16:43 EDT 07/02/2023 16:45 EDT Mia Alexander DO CHEMISTRY & BLOO D GAS ORDERABLES Performing Organization Address City/[facility]/ZIP Co de Phone Number [facility] [address] [place] [address] * (ABNORMAL) LIPID PROFILE (INCLUDES CHOLESTEROL, TRIGLYCERIDES, HDL, LDL) (07/02/2023 16:43 EDT) Cholesterol 164 <200 mg/dL 07/02/2023 18:27 EDT [facility] Comment:Note that therapeuti c goals will differ between patients based on cardiac risk factors and current medical therapy. HDL 45(L) >=50 mg/dl 07/02/2023 18:27 T [facility] Comment:Note that therapeuti c goals will differ between patients based on cardiac risk factors and current medical therapy. LDL, Calculated 65 <160 mg/dL 18:27 [facility] Comment:Note that therapeuti c goals will differ between patients based on cardiac risk factors and current medical therapy. Triglyceride 270(H) <=150 mg/dL 07/02/2023 18:27 [facility] Comment:Note that therapeuti c goals will differ between patients based on cardiac risk factors and current medical therapy. Chol/HDL Ratio 3.6 See Note 07/02/2023 18:27 [facility] Comment: NOTE: Desirable Ratio = <4.1 Patient At Risk Ratio = >5.0(Males) ?>6.0(Females) Non HDL Cholesterol 119 <160 mg/dL 07/02/2023 18:27 [facility] Comment:Note that therapeuti c goals will differ between patients based on cardiac risk factors and current medical therapy. Blood VENOUS BLOOD / Unknown Venipuncture / Unknown 07/02/2023 16:43 EDT 07/02/2023 16:45 EDT Mia Alexander DO CHEMISTRY & BLOO D GAS ORDERABLES Performing Organization Address City/State/[facility] Co de Phone Number [facility] [address] [place] [address] from Last 3 Months or Most Recently Relevant to Health Maintenance Care Teams Public Health Assistant Relationship Specialty Start Date End Date Mia Alexander DO [address] [place] [phone] PCP - General Family Medicine - Primary Care 01/29/23
--- OUTSIDE RECORDS SUMMARY | 2024-06-16 00:22 | XMS_ITS | Encounter Summary ---
Author Organization [facility] Address [address] [place] [address] Care Team Providers Care Web Content Developer Name Role Phone Mia Alexander DO Primary Care Provider + Reason for Visit * Reason Onset Date Comments Medications Refill 03/29/2024 Medical Records 03/29/2024 Encounter Details Date Type Department Care Team (Late st Contact Info) Description 03/29/2024 Telephone [facility] [address], [facility] [address] [place] [address] Mia Alexander DO [address] [facility] [address] [place] [phone] Medications Refill; Medical Records Social History Tobacco Use Types Packs/Day Years [...] Dispensed Refills Start Date End Da te methocarbamoL (ROBAXIN) 750 mg tablet Take 1 Tablet by mouth 3 times daily as needed for Muscle Spasms. 30 Tablet 1 03/29/2024 documented in this encounter Miscellaneous Notes * Telephone Encounter - Flaco Baker MD - 03/29/2024 1557 EDT Refill sent as requested * Telephone Encounter - Preeti Roberto - 03/29/2024 1518 EDT [facility] ED visit notes scanned for review, placed copy in [employer] box up front. * Telephone Encounter - Preeti Roberto - 03/29/2024 0906 EDT Patient states she was seen at [facility] ED 03/28 for pain, medical records request faxed to [phone].Patient asking if we can refill methocarbamoL (ROBAXIN) 750 mg tablet [facility] [place], [place]. documented in this encounter Plan of Treatment Not on file documented as of this encounter Visit Diagnoses Not on filedocumented in this encounter Care Teams Web Content Developer Relationship Specialty Start Date End Date Mia Alexander DO [address] [place] [phone] PCP - General Family Medicine - Primary Care 01/29/23 documented as of this encounter
--- OUTSIDE RECORDS SUMMARY | 2024-06-16 00:22 | XMS_ITS | Encounter Summary ---
Author Organization [facility] Address [address] [place] [address] Care Team Providers Care Documentation Engineer Name Role Phone Mia Alexander DO Primary Care Provider + Reason for Visit * Reason Onset Date Comments Follow-up 05/10/2024 Encounter Details Date Type Department Care Team (Late st Contact Info) Description 05/10/2024 Telephone [facility] Family Medicine [address], [facility] 2 [place] [address] Mia Alexander DO [address] [facility] [address] [place] [phone] Follow-up Social History Tobacco Use Types Packs/Day Years [...] Encounter - Kayla Ambriz NP - 05/15/2024 0856 EDT Findings are not critical. Will discuss at her upcoming appt. Thanks * Telephone Encounter - Smiley Cedeno - 05/11/2024 1600 EDT Scanned & placed in providers box. * Telephone Encounter - Smiley Cedeno - 05/11/2024 1502 EDT Requested records * Telephone Encounter - Gage Ford MA - 05/11/2024 1453 EDT Only 1 page of a Diagnostic Imaging Report was in SCANs from yesterday. Please assist on getting all pages or all documentation of visit to [facility]. * Telephone Encounter - Stewart Giordano - 05/10/2024 1537 EDT Patient called and states that she went to [facility] and there was something wrong with liver. [facility], requested records from [facility]. Will scan once received. documented in this encounter Plan of Treatment Not on file documented as of this encounter Visit Diagnoses Not on filedocumented in this encounter Care Teams Documentation Engineer Relationship Specialty Start Date End Date Mia Alexander DO [address] [place] [phone] PCP - General Family Medicine - Primary Care 01/29/23 documented as of this encounter
--- OUTSIDE RECORDS SUMMARY | 2024-06-16 00:22 | XMS_ITS | Encounter Summary ---
Author Organization [facility] Address [address] [place] [address] Care Team Providers Care Carpet Winder Name Role Phone Mia Alexander DO Primary Care Provider + Reason for Visit * Reason Onset Date Comments Medications Refill 05/24/2024 Encounter Details Date Type Department Care Team (Late st Contact Info) Description 05/24/2024 Refill [facility] Family Medicine [facility] [address] [facility], [place] [address] [place] [address] Sadiq Buck MD [address] [facility] [address] [place] [phone] Medications Refill Social History Tobacco [...] Dispensed Refills Start Date End Da te HYDROcodone-acetaminophe n (NORCO) 5-325 mg tabletIndications:Chroni c pain syndrome Take 1 Tablet by mouth every 6 hours as needed for Pain (only as needed for severe pain). Daily Max: 4 Tablets 28 Tablet 05/31/2024 06/05/2024 documented in this encounter Miscellaneous Notes * Telephone Encounter - Sue Kerns DNP - 05/26/2024 1154 EDT Bridge script sent to cover until next OV with JFW * Telephone Encounter - Steffanie Soler, BARNEY - 05/26/2024 1112 EDT Controlled Medication Refill Request Med: hydrocodone-APAP 5-325 mg, 1 tab Q6 hrs PRN severe pain Pharmacy: [place], [place] Last visit: 02/08/24 Next visit: 06/05/24 CSA: 07/02/23 UDS: 07/02/23 Last rx - 05/03/24, #112 for 28 days NR VPMS - Last picked up: not reflected as [place] pharmacies do not report sold date. Dispense Rpt - last dispensed 05/03/24. Next Due: 05/31/24 OK to renew postdated rx? documented in this encounter Plan of Treatment [...] severe pain). Daily Max: 4 Tablets Reorder 05/03/2024 05/24/2024 documented as of this encounter Care Teams Carpet Winder Relationship Specialty Start Date End Date Mia Alexander DO [address] [place] [address] [phone] PCP - General Family Medicine - Primary Care 01/29/23 documented as of this encounter
--- OUTSIDE RECORDS SUMMARY | 2024-06-16 00:22 | XMS_ITS | Encounter Summary ---
Author Organization [facility] Address [address] [place] [address] Care Team Providers Care Hazmat Cdl Driver Name Role Phone Mia Alexander Primary Care Provider + Reason for Visit * Reason Onset Date Comments Medications Refill 03/21/2024 Encounter Details Date Type Department Care Team (Late st Contact Info) Description 03/21/2024 Refill [facility] Family Medicine [facility] [address] [facility], [place] [address] [place] [address] Emma Conteh, VP COMMUNICATIONS [address] [facility] [address] [place] [phone] Medications Refill Social History Tobacco [...] Anxiety. Daily Max: 0.25 mg 14 Tablet 03/22/2024 04/24/2024 documented in this encounter Miscellaneous Notes * Telephone Encounter - Steffanie Soler, RN - 03/21/2024 1626 EDT Controlled Medication Refill Request Med: lorazepam 0.5 mg, 1/2 tab QD PRN anxiety Pharmacy: [place], [place] Last visit: 02/08/24 Next visit: 05/11/24 CSA: 07/02/23 UDS: 07/02/23 Last rx - 01/12/24, #14 NR VPMS - Last picked up: 01/12/24, #14 Next Due: now OK to renew? [...] for Anxiety. Daily Max: 0.25 mg Reorder 01/12/2024 03/21/2024 documented as of this encounter Care Teams Hazmat Cdl Driver Relationship Specialty Start Date End Date Mia Alexander DO [address] [place] [phone] PCP - General Family Medicine - Primary Care 01/29/23 documented as of this encounter
--- OUTSIDE RECORDS SUMMARY | 2024-06-16 00:22 | XMS_ITS | Encounter Summary ---
Author Organization [facility] Address [address] [place] [address] Care Team Providers Care Office Administrative Assistant Name Role Phone Mia Alexander Primary Care Provider + Reason for Visit * Reason Onset Date Comments Medications Refill 04/19/2024 Encounter Details Date Type Department Care Team (Late st Contact Info) Description 04/19/2024 Refill [facility] Family Medicine [facility] [address] [facility], [place] [address] [place] [address] Sue Yates MD [address] [facility] [address] [place] [phone] Medications Refill Social History Tobacco [...] encounter Miscellaneous Notes * Telephone Encounter - Emma Conteh NP - 04/20/2024 1201 EDT Routing to the provider in our clinic who has been seeing pt since AW left to best manage this RF request. Looks like pt was weaning use at [facility] with JFW, so defer RF to her. * Telephone Encounter - Steffanie Soler, RN - 04/20/2024 1147 EDT Controlled Medication Refill Request Med: lorazepam 0.5 mg, 1/2 tab QD PRN anxiety Pharmacy: [facility] Last visit: 02/08/24 Next visit: 05/11/24 CSA: 07/02/23 UDS: 07/02/23 Last rx - 03/22/24, #14 for 28 days NR VPMS - Last picked up: 03/22/24, #14 Next Due: now OK to renew? documented in this encounter Plan of Treatment Not on file documented as of this encounter Visit Diagnoses Diagnosis Chronic pain syndrome documented in this encounter Care Teams Office Administrative Assistant Relationship Specialty Start Date End Date Mia Alexander DO [address] [place] [phone] PCP - General Family Medicine - Primary Care 01/29/23 documented as of this encounter
--- OUTSIDE RECORDS SUMMARY | 2024-06-16 00:22 | XMS_ITS | Encounter Summary ---
Author Organization [facility] Address [address] [place] [address] Care Team Providers Care Gas Station Attendant Name Role Phone Mia Alexander Primary Care Provider + Reason for Referral * PT/OT/ST (Routine/Next Available) - Closed Specialty Diagnoses / Procedures Referred By Contac t Referred To Contact Diagnoses Acute pain of right knee Kayla Ambriz NP [address] [place] [phone] Referral ID Status Reason Start Date Expiration Date V isits Requested Visits Authorized [id number] Closed Specialty Services Required 02/08/2024 1 1 Question Answer Reason for Request: Acute on chronic r lateral knee pain Comments [facility] PT * Radiology Services (Routine/Next Available) - Closed Specialty Diagnoses / Procedures Referred By Contac t Referred To Contact Diagnoses Acute pain of right knee Procedures XR KNEE RIGHT 4 OR MORE VIEWS Kayla Ambriz NP [address] [facility] [address] [place] [address] Referral ID Status Reason Start Date Expiration Date Visits Re quested Visits Authorized [id number] Closed 02/08/2024 1 1 Reason for Visit * Reason Comments Chronic Pain Encounter Details Date Type Department Care Team (Late st Contact Info) Description 02/08/2024 16:00 EDT Office Visit [facility] Family Medicine [facility] ([facility] [address], [place] [address] [place], [place] [address] Kayla Ambriz, BELL [address] [facility] [address] [place] [address] Chronic pain syndrome (Primary Dx); Chronic prescription opiate use; Type 2 diabetes mellitus with hyperglycemia, without long-term current use of insulin (HCC-CMS); Acute pain of right knee; Connective tissue disease overlap syndrome ([facility]); Generalized anxiety disorder with panic attacks Social History Tobacco Use Types Packs/Day Years [...] Sign Reading Time Taken Comments Blood Pressure 104/63 02/08/2024 1548 EDT Pulse 90 02/08/2024 1548 EDT Temperature - - Respiratory Rate 20 02/08/2024 1548 EDT Oxygen Saturation - - Inhaled Oxygen Concentration - - Weight 114.3 kg (252 lb) 02/08/2024 1548 EDT Height 149.9 cm (4' 11) 02/08/2024 1548 EDT Body Mass Index 50.9 02/08/2024 1548 EDT documented in this encounter Ordered Prescriptions Prescription Sig Dispensed Refills Start Date End Da te HYDROcodone-acetaminophe n (NORCO) 5-325 mg tabletIndications:Chroni c pain syndrome Take 1 Tablet by mouth every 6 hours as needed for up to 28 days for Pain (only as needed for severe pain). Daily Max: 4 Tablets 112 Tablet 04/05/2024 04/28/2024 HYDROcodone-acetaminophe n (NORCO) 5-325 mg tabletIndications:Chroni c pain syndrome Take 1 Tablet by mouth every 6 hours as needed for up to 28 days for Pain (only as needed for severe pain). Daily Max: 4 Tablets 112 Tablet 03/08/2024 04/05/2024 HYDROcodone-acetaminophe n (NORCO) 5-325 mg tabletIndications:Chroni c pain syndrome Take 1 Tablet by mouth every 6 hours as needed for up to 28 days for Pain (only as needed for severe pain). Daily Max: 4 Tablets 112 Tablet 02/09/2024 04/26/2024 documented in this encounter Progress Notes * Kayla Ambriz, FLORAL DECORATOR - 02/08/2024 1600 EDT Assessment/Plan: Allie was seen today for chronic pain. Diagnoses and all orders for this visit: Chronic pain syndrome Comments: Fair control Cont hydrocodone/APAP 5/325 mg 4 times day, diclofenac oral Declines gabapentin or lyrica Hasn't kept any ortho appts that i can find in chart Orders: - HYDROcodone-acetaminophen (NORCO) 5-325 mg tablet; Take [...] for severe pain). Daily Max: 4 Tablets Chronic prescription opiate use Comments: Fair control Advised not to take any additional meds- breaks the CSA. Hydrocodone/APAP 5-325 mg 4 times day #112 3 mo refill thru 05/03 Type 2 diabetes mellitus with hyperglycemia, without long-term current use of insulin ([facility]) Comments: Stable A1c 6.3 today Cont metformin and ozempic DM diet, can't exercise much d/t pain Orders: - POCT HEMOGLOBIN A1C Acute pain of right knee Comments: Acute on chronic uncontrolled Cont current medications Rec PT and XR- for [facility] Brace, ice, topical meds prn supportive shoes Orders: - Cancel: XR KNEE RIGHT 4 OR MORE VIEWS; Future - Cancel: AMB CONS/FOLLOW UP PHYSICAL THERAPY - [facility]; Future - XR KNEE RIGHT 4 OR MORE VIEWS; Future - AMB CONS/FOLLOW UP PHYSICAL THERAPY - OUTSIDE OF NETWORK; Future Connective tissue disease overlap syndrome (HCC-CMS) Comments: fair control saw rheum once in 2019 ? component of fibromyalgia declines gabapentin may benefit from duloxetine Generalized anxiety disorder with panic attacks Comments: fair control Cont fluoxetine is weaning off lorazepam Has hydroxyzine prn Kayla Ambriz GUIDE DOMESTIC [employer]OUR-C 02/08/24 Subjective: Chief Complaint Patient presents with Chronic Pain HPI: Here for refill of chronic pain medications. She injured her R knee 6 weeks ago- stepped wrongand felt shooting pain up right side of her leg. With every step feels like knee is bulging. Took afew more of her pain meds d/t this pain. Also used Ibuprofen, ice, heat, knee brace. Ice and brace helped the most. ETIOLOGY OF CHRONIC PAIN: 1) ANALGESIA: knees, ankles, fingers 7-8/10 normally 2) ADLs: hard has to have family help 3) ADVERSE REACTIONS: none 4) ABERRANT BEHAVIOR: recently used more than recommended d/t pain 5) AFFECT: normal Chronic Pain Management Visit [place] Precautions: Effective treatment of this patient's pain requires use of opioid therapy. I have considered other therapy modalities and discussed the risks and benefits of opioid therapy with my patient Date of last RX Refill: hydrocodone/APAP 01/14/24, Lorazepam 01/12/24 Refill dates for today's visit: 02/10/24 for hydrocodone and 02/08/24 for lorazepam Medication/sig/amount/28 day rx: Hydrocodone/APAP 5-325 mg 4 times day #112 tabs and lorazepam 0.5 mg as needed #14 tabs Date of last UDS: 07/02/23 Date of last VPMS query: 02/07/24 Prior to Admission medications Medication Sig Start Date End Date Taking? Authorizing Provider aspirin 81 mg EC tablet TAKE ONE TABLET BY MOUTH ONE TIME DAILY. 08/20/23 Mia Alexander DO atorvastatin (LIPITOR) 40 mg tablet TAKE ONE TABLET BY MOUTH ONE TIME DAILY 10/13/23 Cristóbal Alexander DO blood glucose test strips Use 1 Strip as directed daily. Brand:per formulary; test blood sugar oncedaily 11/24/23 Mia Alexander DO colestipoL (COLESTID) 1 gram tablet Take 2 Tablets by mouth every morning AND 1 Tablet at bedtime 01/11/24 Sue Yates MD diclofenac (VOLTAREN) 75 mg EC tablet Take 1 Tablet by mouth 2 times daily. 12/21/22 06/13/24 Ayden Angulo MD ferrous sulfate 325 mg (65 mg iron) EC tablet Take 1 Tablet by mouth daily. 07/07/23 Mia Alexander DO FLUoxetine (PROZAC) 20 mg capsule Take 1 Capsule by mouth daily. With 40 mg fluoxetine for total daily dose of 60 mg 11/24/23 Mia Alexander DO FLUoxetine (PROZAC) 40 mg capsule TAKE ONE CAPSULE BY MOUTH ONE TIME DAILY 04/14/23 Mia Alexander DO HYDROcodone-acetaminophen (NORCO) 5-325 mg tablet Take 1 Tablet by mouth every 6 hours as needed for up to 31 days for Pain (only as needed for severe pain). Daily Max: 4 Tablets 01/14/24 02/14/24 Sue Yates MD hydrOXYzine (ATARAX) 10 mg tablet Take 1 Tablet by mouth every 8 hours as needed for Anxiety. 12/14/23 uSe Yates MD lancets Use 1 Lancet as directed daily. Brand: per formulary; test blood sugar once daily 11/24/23 Mia Alexander DO LORazepam (ATIVAN) 0.5 mg tablet Take 0.5 Tablets by mouth daily as needed for Anxiety. Daily Max: 0.25 mg 01/12/24 Emma Conteh NP metFORMIN (GLUCOPHAGE-XR) 500 mg ER tablet Take 1 Tablet by mouth daily with breakfast 01/03/24 Kayla Ambriz NP naloxone (NARCAN) 4 mg/actuation nasal spray 0.1 mL by nasal route as needed for Opioid Reversal. 03/31/22 Sue Kerns DNP nystatin (MYCOSTATIN) powder APPLY 2 TIMES DAILY to affected areas under breasts and groin folds 10/01/22 Ayden Angulo MD omeprazole (PRILOSEC) 20 mg capsule TAKE ONE CAPSULE BY MOUTH ONE TIME DAILY 07/26/23 Mia Alexander, ONETOUCH ULTRA2 METER Use 1 Strip as directed daily. 07/08/23 ProviderSindy MD ONETOUCH ULTRASOFT 2 LANCET 30 gauge misc Use 1 Lancet as directed daily. 07/08/23 ProviderSindy MD semaglutide (OZEMPIC) 0.25 mg or 0.5 mg (2 mg/3 mL) pen injector Inject 0.5 mg into the skin once aweek. 12/17/23 Sue Kerns DNP Review of Systems Review of Systems Gastrointestinal: Positive for nausea. Musculoskeletal: Positive for arthralgias (r knee pain), gait problem and joint swelling. Negative for back pain. Neurological: Positive for numbness (feet). Psychiatric/Behavioral: Positive for sleep disturbance. The patient is nervous/anxious. 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 Physical Exam: Physical Exam Constitutional: Appearance: Normal appearance. She is well-developed. HENT: Head: Normocephalic and atraumatic. Eyes: Conjunctiva/sclera: Conjunctivae normal. Pupils: Pupils are equal, round, and reactive to light. Neck: Thyroid: No thyromegaly. Cardiovascular: Rate and Rhythm: Normal rate and regular rhythm. Pulses: Normal pulses. Heart sounds: Normal heart sounds. Pulmonary: Effort: Pulmonary effort is normal. Breath sounds: Normal breath sounds. Musculoskeletal: Right knee: Swelling present. Decreased range of motion. Comments: Antalgic gait Skin: General: Skin is warm and dry. Capillary Refill: Capillary refill takes less than 2 seconds. Neurological: General: No focal deficit present. Mental Status: She is alert and oriented to person, place, and time. Psychiatric: Mood and Affect: Mood normal. Speech: Speech normal. Behavior: Behavior normal. Thought Content: Thought content normal. Judgment: Judgment normal. Results for orders placed or performed in visit on 02/08/24 POCT HEMOGLOBIN A1C Result Value Ref Range Hemoglobin A1c, POC 6.3 (A) 5.7 % Results for orders placed or performed in visit on 02/08/24 POCT HEMOGLOBIN A1C Result Value Ref Range Hemoglobin A1c, POC 6.3 (A) 5.7 % * Effie Almaguer RN - 02/08/2024 1600 EDT Having knee pain and swelling, right knee misstep ed off from stairs. Has used ice, heat, knee brace. Site collected: Right hand, ring finger Ordering Provider: Manjinder Ambriz NP Patient Response: Tolerated well Manjinder Ambriz NP advised of results of POCT A1c. documented in this encounter Plan of Treatment Scheduled Orders Name Type Priority Associated Diagnoses Orde r Schedule XR KNEE RIGHT 4 OR MORE VIEWS Imaging Routine Acute pain of right knee Expected: 02/15/2024 (Approximate), Expires: 08/10/2025 Scheduled Referrals Name Type Priority Associated Diagnoses Order Schedule AMB CONS/FOLLOW UP PHYSICAL THERAPY - OUTSIDE OF NETWORK Outpatient Referral Routine/Next Available Acute pain of right knee Expected: 02/15/2024 (Approximate), Expires: 02/07/2025 documented as of this encounter Procedures Procedure Name Priority Date/Time Associated Diagnosis Comments POCT HEMOGLOBIN A1C Routine 02/08/2024 Type 2 diabetes mellitus with hyperglycemia, without long-term current use of insulin ([facility]) documented in this encounter Results * (ABNORMAL) POCT HEMOGLOBIN A1C (02/08/2024) Hemoglobin A1c, POC 6.3(A) 5.7 % [facility] POINT OF CARE Blood CAPILLARY BLOOD / Unknown 02/08/2024 Kayla Ambriz NP POINT OF CARE TEST ORDERABLES [facility] POINT OF CARE documented in this encounter Visit Diagnoses Diagnosis Chronic pain syndrome- Primary Chronic prescription opiate use Type 2 diabetes mellitus with hyperglycemia, without long-term current use of insulin ([facility]) Acute pain of right knee Connective tissue disease overlap syndrome ([facility]) Other specified diffuse disease of connective tissue Generalized anxiety disorder with panic attacks documented in this encounter Discontinued Medications Medication Sig Discontinue Reason Start Date End Da te HYDROcodone-acetaminophe n (NORCO) 5-325 mg tabletIndications:Chroni c pain syndrome Take 1 Tablet by mouth every 6 hours as needed for up to 31 days for Pain (only as needed for severe pain). Daily Max: 4 Tablets Reorder 01/14/2024 02/08/2024 documented as of this encounter Care Teams Gas Station Attendant Relationship Specialty Start Date End Date Mia Alexander DO [address] [place] [phone] PCP - General Family Medicine - Primary Care 01/29/23 documented as of this encounter
--- OUTSIDE RECORDS SUMMARY | 2024-06-16 00:22 | XMS_ITS | Encounter Summary ---
Author Organization [facility] Address [address] [place] [address] Care Team Providers Care Bartender Server Name Role Phone Mia Alexander Primary Care Provider + Reason for Visit * Reason Onset Date Comments Medications Refill 03/30/2024 Encounter Details Date Type Department Care Team (Late st Contact Info) Description 03/30/2024 Refill [facility] Family Medicine [address], [facility] [address] [place] [address] Sue Kerns, [facility] [address] [facility] [address] [place] [address] Medications Refill Social History Tobacco [...] Dispensed Refills Start Date End Da te semaglutide (OZEMPIC) 0.25 mg or 0.5 mg (2 mg/3 mL) pen injector Inject 0.5 mg into the skin once a week. 3 mL 1 03/30/2024 documented in this encounter Miscellaneous Notes * Telephone Encounter - Steffanie Soler, RN - 03/30/2024 1642 EDT Medication Refill Request Med: semaglutide 2 mg/3 ml, 0.5 mg weekly Pharmacy: [place], [place] Last visit: 02/08/24 Next visit: 05/11/24 Rx(s) escribed to pharmacy. documented in this encounter Plan of Treatment Not on file documented as of this encounter Visit Diagnoses Not on filedocumented in this encounter Discontinued Medications Medication Sig Discontinue Reason Start Date End Da te semaglutide (OZEMPIC) 0.25 mg or 0.5 mg (2 mg/3 mL) pen injector Inject 0.5 mg into the skin once a week. Reorder 12/17/2023 03/30/2024 documented as of this encounter Care Teams Bartender Server Relationship Specialty Start Date End Date Mia Alexander DO [address] [place] [phone] PCP - General Family Medicine - Primary Care 01/29/23 documented as of this encounter
--- OUTSIDE RECORDS SUMMARY | 2024-06-16 00:22 | XMS_ITS | Encounter Summary ---
Author Organization [facility] Address [address] [place] [address] Care Team Providers Care Account Underwriter Name Role Phone Mia Alexander DO Primary Care Provider + Reason for Visit * Reason Onset Date Comments Medications Refill 05/24/2024 Pt is out of RX Other 05/24/2024 Yeast on stomach Encounter Details Date Type Department Care Team (Late st Contact Info) Description 05/24/2024 Telephone [facility] Medicine [address], [facility] 2 [place] [address] Mia Alexander DO [address] [facility] [address] [place] [address] Medications Refill (Pt is out of RX); Other (Yeast on stomach) Social History Tobacco Use Types Packs/Day Years [...] Dispensed Refills Start Date End Da te nystatin (MYCOSTATIN) powder APPLY 2 TIMES DAILY to affected areas under breasts and groin folds 30 g 3 05/24/2024 documented in this encounter Miscellaneous Notes * Telephone Encounter - Deloris Rod - 05/24/2024 1301 EDT Patient notified. * Telephone Encounter - Sue Orozco, BARNEY - 05/24/2024 0919 EDT Medication Refill Request Medication and dose: Nystatin powder Verified: Yes Pharmacy verified: Yes Last visit: 02/08/2024 Next visit: 06/05/2024 Front- please notify this has been sent * Telephone Encounter - Deloris Rod - 05/24/2024 0902 EDT Pt requesting refill of nystatin powder. Pt reports that it is really bad under her stomach. Pt is out of RX. Pharmacy: [facility] documented in this encounter Plan of Treatment Not on file documented as of this encounter Visit Diagnoses Not on filedocumented in this encounter Discontinued Medications Medication Sig Discontinue Reason Start Date End Da te nystatin (MYCOSTATIN) powder APPLY 2 TIMES DAILY to affected areas under breasts and groin folds Reorder 10/01/2022 05/24/2024 documented as of this encounter Care Teams Account Underwriter Relationship Specialty Start Date End Date Mia Alexander DO [address] [place] [phone] PCP - General Family Medicine - Primary Care 01/29/23 documented as of this encounter
--- OUTSIDE RECORDS SUMMARY | 2024-06-16 00:23 | XMS_ITS | Encounter Summary ---
Author Organization [facility] Address [address] [place] [address] Care Team Providers Care Vault Mechanic Name Role Phone Mia Alexander DO Primary Care Provider + Reason for Visit * Reason Onset Date Comments Fever 09/27/2023 Sore Throat 09/27/2023 Headache 09/27/2023 Chills 09/27/2023 Generalized Body Aches 09/27/2023 Diarrhea 09/27/2023 Emesis 09/27/2023 Encounter Details Date Type Department Care Team (Late st Contact Info) Description 09/27/[address]23 [address]phone [facility] Family Medicine [address], [facility] [address] [place] [address] Mia Alexander DO [address] [facility] [address] [place] [address] Fever (/); Sore Throat; Headache; Chills; Generalized Body Aches; Diarrhea; Emesis Social History Tobacco Use Types Packs/Day Years [...] Miscellaneous Notes * Telephone Encounter - Sue Orozco, RN - 09/27/2023 1112 EST Spoke w/ pt. Rescheduled . Reviewed home care instructions for viral illness, n/v diarrhea. Pt agrees. * Telephone Encounter - Deloris Rod - 09/27/2023 0902 EST Pt now reporting diarrhea and vomiting, cancelled appt for today. CPM r/s for 01/25 - next available. * Telephone Encounter - Deloris Rod - 09/27/2023 0835 EST Pt is running a fever, sore throat, sinus headache, chills, body aches. Covid exposure. Pt tested negative yesterday but does not have any more tests to test today. Pt is scheduled for CPM today at 4:30 with AW. Please advise. documented in this encounter Plan of Treatment Not on file documented as of this encounter Visit Diagnoses Not on filedocumented in this encounter Care Teams Vault Mechanic Relationship Specialty Start Date End Date Mia Alexander DO [address] [place] [phone] PCP - General Family Medicine - Primary Care 01/29/23 documented as of this encounter
--- OUTSIDE RECORDS SUMMARY | 2024-06-16 00:23 | XMS_ITS | Encounter Summary ---
Author Organization [facility] Address [address] [place] [address] Care Team Providers Care Import Export Manager Name Role Phone Mia Rawls DO Primary Care Provider + Reason for Visit * Reason Onset Date Comments Results 07/04/2023 Encounter Details Date Type Department Care Team (Late st Contact Info) Description 07/04/2023 Telephone [facility] Family Medicine [address], [facility] 2 [place] [address] Mia Rawls DO [address] [place] [address] [address] [place] [address] Results Social History Tobacco Use Types Packs/Day Years [...] sulfate 325 mg (65 mg iron) EC tabletIndications:Anemi a, unspecified type Take 1 Tablet by mouth daily. 90 Tablet 2 07/07/2023 04/03/2024 lancetsIndications:Type 2 diabetes mellitus with hyperglycemia, without long-term current use of insulin ([facility]) Brand: per formulary; test blood sugar once daily (new Dx of Diabetes [facility] Hba1c 7.8%) 100 Each 07/07/2023 11/24/2023 blood glucose test stripsIndications:Type 2 diabetes mellitus with hyperglycemia, without long-term current use of insulin ([facility]) Brand:per formulary; test blood sugar once daily (new Dx of Diabetes [facility] Hba1c 7.8%) 100 Each 07/07/2023 08/25/2023 blood glucose meterIndications:Type 2 diabetes mellitus with hyperglycemia, without long-term current use of insulin ([facility]) Brand: One Touch Basic Or per formulary; test blood sugar once daily (new Dx of Diabetes [facility] Hba1c 7.8%) 1 Each 07/07/2023 11/24/2023 ergocalciferol (VITAMIN D2) 1,250 mcg (50,000 unit) capsuleIndications:Celeste min D deficiency Take 1 Capsule by mouth every 7 days for 90 days. 12 Capsule 07/05/2023 10/03/2023 metFORMIN (GLUCOPHAGE-XR) 500 mg ER tabletIndications:Type 2 diabetes mellitus with hyperglycemia, without long-term current use of insulin ([facility]) Take 1 Tablet by mouth daily with breakfast. 90 Tablet 1 07/05/2023 01/03/2024 documented in this encounter Miscellaneous Notes * Telephone Encounter - Gage Ford MA - 07/13/2023 1612 EDT [employer] message sent. * Telephone Encounter - Mia Rawls DO - 07/09/2023 1420 EDT Can you let her know to request to have Tdap at the pharmacy * Telephone Encounter - Sue Orozco RN - 07/08/2023 0950 EDT She can have everything but the TDAP and covid in the office. Should not need prescription for those. * Addendum Note - Mia Rawls DO - 07/07/2023 1902 EDTAddended by: MIA RAWLS on: 07/07/2023 19:02 Modules accepted: Orders * Telephone Encounter - Mia Rawls DO - 07/07/2023 1852 EDT Sent Glucometer, lancets, test strips to pt pharmacy New Dx Diabetes Does she need a DWO to go to pharmacy for [facility] medicare? Can you let me know if she can have any of he vaccines in the office or do I need to send scripts to her pharmacy for administration Needs Tdap, Hep B series, Hep A series Should also have Flu vax and new COVID-19 vax due to being immunocompromised She can have PCV 20 when she comes to the office * Telephone Encounter - Mia Rawls DO - 07/04/2023 2331 EDT Results of labs New Dx of Diabetes and will need treatment Start Metformin ER 500 mg daily Once diarrhea is controlled with colestipol Start Vitamin D2 50,000 units once weekly x 12 weeks - then will start vitamin D3 2000 units daily Offered glucometer Needs Hep A vaccines and hep B vaccines Also appears to need Tdap vaccine Not sure if she has to get these at the pharmacy because of being on [place] Medicare or if this is covered in the office Added Ion, ferritin, Vit B12 to existing lab specimen due to anemia on labs Already on atorvastatin 40 mg daily Elevated liver enzymes - recheck after we start treatment for Type 2 DM Office Visit on 07/02/2023 Component Date Value Ref Range Status ??? Amphetamine Screen, Ur 07/02/2023 Negative Negative, Negative Screen Final ??? Barbiturates Screen, Ur 07/02/2023 Negative Negative, Negative Screen Final ??? Benzodiazepine Screen, Ur 07/02/2023 Presumptive Positive, interpret with caution. (A) Negative, Negative Screen Final ??? Cocaine Metabolites Screen, Ur 07/02/2023 Negative Negative, Negative Screen Final ??? Methamphetamine Screen, Ur 07/02/2023 Negative Negative, Negative Screen Final ??? Methadone Screen, Ur 07/02/2023 Negative Negative, Negative Screen Final ??? Opiates Screen, Ur 07/02/2023 Presumptive Positive, interpret with caution. (A) Negative, Negative Screen Final ??? Oxycodone Screen, Ur 07/02/2023 Negative Negative, Negative Screen Final ??? Phencyclidine Screen, Ur 07/02/2023 Negative Negative Screen, Negative Final ??? Cannabinoids Screen, Ur 07/02/2023 Negative Negative, Negative Screen Final ??? Buprenorphine and Metabolites Scre* 07/02/2023 Negative Negative, Negative Screen Final ??? Tricyclics Screen, Ur 07/02/2023 Negative Negative Screen, Negative Final ??? T4, Free 07/02/2023 1.4 0.8 - 2.2 ng/dL Final ??? TSH 07/02/2023 1.77 0.47 - 4.68 mIU/L Final ? ? Hemoglobin A1c 07/02/2023 7.8 (H) <5.7 % Final Glycemic Status References: Normal: <5.7% Pre-Diabetes: 5.7% - 6.4% Diagnostic of Diabetes: > or = 6.5% (if confirmed) ??? Est Avg Glucose 07/02/2023 177 mg/dL Final The eAG represents the A1c result expressed as average glucose in mg/dL. ??? WBC 07/02/2023 12.75 (H) 4.00 - 12.40 K/cmm Final ??? RBC 07/02/2023 5.08 (H) 3.86 - 5.04 M/cmm Final ??? Hemoglobin 07/02/2023 13.5 11.6 - 15.2 g/dL Final ??? HCT 07/02/2023 41.8 34.9 - 44.4 % Final ??? MCV 07/02/2023 82 81 - 98 fL Final ??? MCH 07/02/2023 26.6 (L) 26.7 - 33.3 pg Final ??? MCHC 07/02/2023 32.3 32.1 - 35.9 g/dL Final ? ? RDW-CV 07/02/2023 15.6 (H) <14.7 % Final ? ? RDW-SD 07/02/2023 46.8 <50.4 fl Final ??? PLT 07/02/2023 425 (H) 141 - 377 K/cmm Final ??? MPV 07/02/2023 9.9 9.5 - 12.7 fL Final ??? % Neutrophils 07/02/2023 65.6 % Final ??? % Lymphocytes 07/02/2023 27.1 % Final ??? % Monocytes 07/02/2023 5.3 % Final ??? % Eosinophils 07/02/2023 1.0 % Final ??? % Basophils 07/02/2023 0.5 % Final ??? % Immature Grans 07/02/2023 0.5 % Final ??? Absolute Neutrophils 07/02/2023 8.36 2.20 - 8.85 K/cmm Final ??? Absolute Lymphocytes 07/02/2023 3.46 (H) 1.09 - 3.30 K/cmm Final ??? Absolute Monocytes 07/02/2023 0.67 0.10 - 0.80 K/cmm Final ??? Absolute Eosinophils 07/02/2023 0.13 0.03 - 0.61 K/cmm Final ??? ABS Basophils 07/02/2023 0.06 0.01 - 0.11 K/cmm Final ??? Absolute Immature Grans 07/02/2023 0.07 (H) 0.00 - 0.06 K/cmm Final ??? Type of Differential: 07/02/2023 Auto Final ??? Sodium 07/02/2023 139 136 - 145 mmol/L Final ??? Potassium 07/02/2023 4.2 3.5 - 5.0 mmol/L Final ??? Chloride 07/02/2023 100 96 - 110 mmol/L Final ??? CO2 Total 07/02/2023 26 22 - 32 mmol/L Final ??? Glucose 07/02/2023 110 (H) 70 - 99 mg/dl Final ??? BUN 07/02/2023 22 10 - 26 mg/dL Final ??? Creatinine 07/02/2023 0.64 0.52 - 1.04 mg/dL Final ? ? eGFR 07/02/2023 112 >60 mL/min/1.73m2 Final ??? Total Protein 07/02/2023 7.7 6.3 - 8.2 g/dL Final ??? Albumin 07/02/2023 4.7 3.4 - 4.9 g/dL Final ??? Alkaline Phosphatase 07/02/2023 133 (H) 38 - 126 U/L Final ??? AST 07/02/2023 35 15 - 46 U/L Final ? ? ALT 07/02/2023 42 (H) <35 U/L Final ? ? Bilirubin, Total 07/02/2023 0.5 <1.4 mg/dL Final ??? Calcium 07/02/2023 9.6 8.5 - 10.5 mg/dL Final ??? Albumin/Globulin Ratio 07/02/2023 1.6 1.0 - 2.5 g/dL Final ??? Anion Gap 07/02/2023 13 5 - 14 mmol/L Final ??? 25OH Vitamin D Tot 07/02/2023 25 (L) 30 - 100 ng/mL Final ??? CK 07/02/2023 66 30 - 135 U/L Final ??? Magnesium 07/02/2023 2.0 1.7 - 2.8 mg/dL Final ??? Hep C Antibody 07/02/2023 Negative Negative Final ??? Hep B Surface Ab, Quantitative 07/02/2023 0.0 See Note mIU/mL Final Clinical Interpretation of Immune Status: Patient is considered to be not immune to infection with HBV. Reference Range for Hep B Surface Ab, Quant: Positive: >= 12.00 mIU/mL Negative: ?? < 5.00 mIU/mL Indeterminate: >= 5.00 mIU/mL and < 12.00 mIU/mL ??? Hepatitis A Antibody, Total 07/02/2023 Negative Negative Final ? ? Cholesterol 07/02/2023 164 <200 mg/dL Final Note that therapeutic goals will differ between patients based on cardiac risk factors and current medical therapy. ? ? HDL 07/02/2023 45 (L) >=50 mg/dl Final Note that therapeutic goals will differ between patients based on cardiac risk factors and current medical therapy. ? ? LDL, Calculated 07/02/2023 65 <160 mg/dL Final Note that therapeutic goals will differ between patients based on cardiac risk factors and current medical therapy. ? ? Triglyceride 07/02/2023 270 (H) <=150 mg/dL Final Note that therapeutic goals will differ between patients based on cardiac risk factors and current medical therapy. ??? Chol/HDL Ratio 07/02/2023 3.6 See Note Final NOTE: Desirable Ratio = <4.1 Patient At Risk Ratio = >5.0(Males) >6.0(Females) ? ? Non HDL Cholesterol 07/02/2023 119 <160 mg/dL Final Note that therapeutic goals will differ between patients based on cardiac risk factors and current medical therapy. ? ? C-Reactive Protein 07/02/2023 24.1 (H) <10.0 mg/L Final documented in this encounter Plan of Treatment Not on file documented as of this encounter Procedures Procedure Name Priority Date/Time Associated Diagnosis Comments IRON Add-On 07/02/2023 16:43 EDT Anemia, unspecified type FERRITIN Add-On 07/02/2023 16:43 EDT Anemia, unspecified type VITAMIN B12 Add-On 07/02/2023 16:43 EDT Anemia, unspecified type documented in this encounter Results * (ABNORMAL) VITAMIN B12 (07/02/2023 16:43 EDT) Vitamin B12 959(H) 211 - 911 pg/mL 07/05/2023 20:25 EDT [facility] Blood VENOUS BLOOD / Unknown Venipuncture / Unknown 07/02/2023 16:43 EDT 07/02/2023 16:45 EDT Narrative [facility] - 07/05/2023 20:25 EDT The results of this assay can be falsely elevated due to the consumption of Biotin. Mia Rawls DO CHEMISTRY & BLOO D GAS ORDERABLES Performing Organization Address [facility] Co de Phone Number [facility] [address] [place], [place] [phone] * IRON (07/02/2023 16:43 EDT) Iron 78 37 - 170 ??g/dL 07/05/2023 19:31 EDT [facility] Blood VENOUS BLOOD / Unknown Venipuncture / Unknown 07/02/2023 16:43 EDT 07/02/2023 16:45 EDT Mia Rawls DO CHEMISTRY & BLOO D GAS ORDERABLES Performing Organization Address [facility] Co de Phone Number [facility] [address] [place], [place] [phone] * FERRITIN (07/02/2023 16:43 EDT) Ferritin 36 11 - 264 ng/mL 07/05/2023 20:11 EDT [facility] Blood VENOUS BLOOD / Unknown Venipuncture / Unknown 07/02/2023 16:43 EDT 07/02/2023 16:45 EDT Narrative [facility] - 07/05/2023 20:11 EDT The results of this assay can be falsely lowered due to the consumption of Biotin. Mia Rawls DO CHEMISTRY & BLOO D GAS ORDERABLES Performing Organization Address [facility] Co de Phone Number [facility] [address] [place] [address] documented in this encounter Visit Diagnoses Diagnosis Type 2 diabetes mellitus with hyperglycemia, without long-term current use of insulin ([facility])- Primary Vitamin D deficiency Unspecified vitamin D deficiency Anemia, unspecified type documented in this encounter Care Teams Import Export Manager Relationship Specialty Start Date End Date Mia Rawls DO [address] [phone] PCP - General Family Medicine - Primary Care 01/29/23 documented as of this encounter
--- OUTSIDE RECORDS SUMMARY | 2024-06-16 00:23 | XMS_ITS | Encounter Summary ---
Author Organization [facility] Address [address] [place] [address] Care Team Providers Care Cath Lab Nurse Name Role Phone Mia Alexander DO Primary Care Provider + Reason for Visit * Reason Onset Date Comments Medication Problem 07/28/2023 Encounter Details Date Type Department Care Team (Late st Contact Info) Description 07/28/2023 Telephone [facility] Family Medicine [address], [facility] 2 [place] [address] Mia Alexander DO [address] [facility] [address] [place] [address] Medication Problem Social History Tobacco [...] encounter Miscellaneous Notes * Telephone Encounter - Lindy Champion RN - 07/30/2023 1431 EST This scientific writer called and spoke to the patient and let her know this she is going to go to to get the rash looked at. * Telephone Encounter - Mia Alexander DO - 07/30/2023 1108 EST She is a new onset diabetic (possibly diabetes for some time but no labs were done so we were unaware) I don't think its a med reaction She should keep taking the metformin * Telephone Encounter - Lindy Champion RN - 07/30/2023 0944 EST This scientific writer called and spoke to the patient she started the metformin on Wednesday and got a rash on Wednesday on her back and upper buttocks. Please advise, she reports no there symptoms. * Telephone Encounter - Mae Vieyra - 07/28/2023 1406 EST She has a new Phone number and I will up date her chart. * Telephone Encounter - Mae Vieyra - 07/28/2023 1340 EST PT called because she started taking her metformin on Wednesday and developed a rash on her lower backand wanted to ask some questions about side affects. documented in this encounter Plan of Treatment Not on file documented as of this encounter Visit Diagnoses Not on filedocumented in this encounter Care Teams Cath Lab Nurse Relationship Specialty Start Date End Date Mia Alexander DO [address] [place] [phone] PCP - General Family Medicine - Primary Care 01/29/23 documented as of this encounter
--- OUTSIDE RECORDS SUMMARY | 2024-06-16 00:23 | XMS_ITS | Encounter Summary ---
Author Organization [facility] Address [address] [place] [address] Care Team Providers Care Stemming Machine Operator Name Role Phone Mia Alexander Primary Care Provider + Reason for Visit * Reason Onset Date Comments Medications Refill 01/10/2024 Encounter Details Date Type Department Care Team (Late st Contact Info) Description 01/10/2024 Refill [facility] Family Medicine [address], [place] [address] [place] [address] Sue Kerns, [facility] [address] [facility] [address] [place] [address] Medications Refill Social History Tobacco [...] Anxiety. Daily Max: 0.25 mg 14 Tablet 01/12/2024 03/21/2024 documented in this encounter Miscellaneous Notes * Telephone Encounter - Emma Conteh NP - 01/12/2024 1344 EDT Adjusted sign and done. Pt should have enough to get through until NOV based on PRN use * Telephone Encounter - Ana Enriquez RN - 01/12/2024 1326 EDT Call to pt - she recently had her 1 yo and 3 yo grandchildren daily per a DCF order and was needingto take her Ativan 0.5 mg tab daily - but now they are gone and she hopes to cut back on her daily dose - please let her know when rx is sent * Telephone Encounter - Emma Conteh NP - 01/12/2024 1117 EDT Per AW's JAMEL note in Oct, pt was to start taking once daily and then be tapering?? Pls find out from pt where she is at with the taper. Then will RF to bridge until appt with JFW as appropriate. * Telephone Encounter - Ana Enriquez RN - 01/12/2024 0952 EDT Per [facility]: Hydrocodone filled for qty 112 on 12/14/23 Lorazepam 0.5mg filled for qty 14 on 12/17/23 * Telephone Encounter - Ana Enriquez RN - 01/12/2024 0931 EDT Medication(s) Requested: Lorazapam 0.5mg Preferred Pharmacy: [facility] in [place], [place] Is patient out of medication? Unknown Last Refill Date: 12/17/2023 - 14 tabs, no refills Last Visit Date with Ordering Provider: 11/18/23 with AW Next Non-Acute Visit Date Scheduled with Care Team: Yes. On 02/08/2024 ANA ENRIQUEZ RN 01/12/2024 9:34 documented in this encounter Plan of Treatment Not on file documented as of this encounter Visit Diagnoses Diagnosis Chronic pain syndrome- Primary documented in this encounter Discontinued Medications Medication Sig Discontinue Reason Start Date End Da te LORazepam (ATIVAN) 0.5 mg tabletIndications:Chroni c pain syndrome Take 0.5 Tablets by mouth 2 times daily. Daily Max: 0.5 mg Reorder 12/17/2023 01/10/2024 documented as of this encounter Care Teams Stemming Machine Operator Relationship Specialty Start Date End Date Mia Alexander DO [address] [place] [phone] PCP - General Family Medicine - Primary Care 01/29/23 documented as of this encounter
--- OUTSIDE RECORDS SUMMARY | 2024-06-16 00:23 | XMS_ITS | Encounter Summary ---
Author Organization [facility] Address [address] [place] [address] Care Team Providers Care Footwear Production Machine Operator Name Role Phone Mia Rawls DO Primary Care Provider + Reason for Referral * Consult (Routine/Next Available) - Specialty Report Received Specialty Diagnoses / Procedures Referred By Susanne martínez Referred To Contact Diagnoses LIDIA (generalized anxiety disorder) Mia Rawls DO [address] [facility] 2 [place] [phone] [facility] 246 [facility], [facility] 2 [place] [address] Referral ID Status Reason Start Date Expiration Date Visits Requested Visits Authorized [id number] Specialty Report Received Specialty Services Required 11/22/2023 1 1 Question Answer Reason for referral: Psychiatry Consult The patient has provided verbal consent to participate in and to be contacted by the [facility] team Yes Comments Working on weaning off lorazepam and chronic opiates On fluoxetine 40 mg daily and continues to have significant anxiety with a lot of obsessive compulsive type tendencies and would like to know if there would be a better choice of medication and if so how to change from fluoxetine to new medication Labs / tests / images:?? - PHQ-2 Score, LIDIA-7 Score, PHQ-9 Score No data recorded Reason for Visit * Reason Onset Date Comments Medication Problem 11/18/2023 Encounter Details Date Type Department Care Team ([facility] Contact Info) Description 11/18/2023 Telephone [facility] Family Medicine [facility] [address], [place] [address] [place] [address] Kriss Jacobs, charge account identification clerk Problem Social History Tobacco Use Types Packs/Day [...] pain). Daily Max: 4 Tablets 112 Tablet 11/19/2023 12/13/2023 LORazepam (ATIVAN) 0.5 mg tabletIndications:Chroni c pain syndrome Take 0.5 Tablets by mouth 2 times daily. Daily Max: 0.5 mg 28 Tablet 11/19/2023 12/17/2023 HYDROcodone-acetaminophe n (NORCO) 5-325 mg tabletIndications:Chroni c pain syndrome Take 1 Tablet by mouth every 6 hours as needed for Pain (only as needed for severe pain). Daily Max: 4 Tablets 112 Tablet 11/19/2023 11/19/2023 LORazepam (ATIVAN) 0.5 mg tabletIndications:Chroni c pain syndrome Take 0.5 Tablets by mouth 2 times daily. Daily Max: 0.5 mg 28 Tablet 11/19/2023 11/19/2023 documented in this encounter Miscellaneous Notes * Addendum Note - Mia Rawls DO - 11/22/20232031 ESTAddended by: MIA RAWLS on: 11/22/2023 20:32 Modules accepted: Orders * Telephone Encounter - Stewart Giordano - 11/19/2023 0921 EST Karol Mcmillan- friend picked up scripts. I checked ID * Telephone Encounter - Mia Rawls DO - 11/19/2023 0907 EST Re-printed the lorazepam and hydrocodone scripts for pick up operator * Telephone Encounter - Smiley Cedeno - 11/19/2023 0818 EST Patients out of: HYDROcodone-acetaminophen (NORCO) 5-325 mg tablet [[id number]] semaglutide 0.25 mg or 0.5 mg (2 mg/3 mL) pen injector [[id number]] She would like prescriptions printed. She gives permission for her friend, Karol Mcmillan to pick up operator printed prescriptions. She is aware Karol needs to bring her Drivers License. * Telephone Encounter - Mia Rawls DO - 11/18/2023 1845 EST Also sent My Chart message About controlled scripts and Dr Nicholson consult * Telephone Encounter - Kriss Jacobs RN - 11/18/2023 1702 EST Due to E-script outage, unable to send in C2 online, by fax or verbal. RN attempted to reach pt several times, call went straight to . LM asked for immediate call back. Call Sig other. Line disconnected. Called pharm and alerted them as well. documented in this encounter Plan of Treatment Scheduled Referrals Name Type Priority Associated Diagnoses Order Schedule AMB CONS/FOLLOW UP [facility] Outpatient Referral Routine/Next Available LIDIA (generalized anxiety disorder) Expected: 11/29/2023 (Approximate), Expires: 11/21/2024 documented as of this encounter Visit Diagnoses Diagnosis Chronic pain syndrome- Primary LIDIA (generalized anxiety disorder) Generalized anxiety disorder documented in this encounter Discontinued Medications Medication Sig Discontinue Reason Start Date End Da te HYDROcodone-acetaminophe n (NORCO) 5-325 mg tabletIndications:Chroni c pain syndrome Take 1 Tablet by mouth every 6 hours as needed for Pain (only as needed for severe pain). Daily Max: 4 Tablets Reorder 11/18/2023 11/19/2023 LORazepam (ATIVAN) 0.5 mg tabletIndications:Chroni c pain syndrome Take 0.5 Tablets by mouth 2 times daily. Daily Max: 0.5 mg Reorder 11/18/2023 11/19/2023 LORazepam (ATIVAN) 0.5 mg tabletIndications:Chroni c pain syndrome Take 0.5 Tablets by mouth 2 times daily. Daily Max: 0.5 mg Reorder 11/19/2023 11/19/2023 HYDROcodone-acetaminophe n (NORCO) 5-325 mg tabletIndications:Chroni c pain syndrome Take 1 Tablet by mouth every 6 hours as needed for Pain (only as needed for severe pain). Daily Max: 4 Tablets Reorder 11/19/2023 11/19/2023 documented as of this encounter Care Teams Footwear Production Machine Operator Relationship Specialty Start Date End Date Mia Rawls DO [address] [place] [phone] PCP - General Family Medicine - Primary Care 01/29/23 documented as of this encounter
--- OUTSIDE RECORDS SUMMARY | 2024-06-16 00:23 | XMS_ITS | Encounter Summary ---
Author Organization [facility] Address [address] [place] [address] Care Team Providers Care Sizer Hand Name Role Phone Mia Alexander Primary Care Provider + Javier Valenzuela RD Unavailable Reason for Visit * Reason Onset Date Comments Medications Refill 09/10/2023 Encounter Details Date Type Department Care Team (Late st Contact Info) Description 09/10/2023 Refill [facility] Family Medicine [address], [facility] 2 [place] [address] Wilver Garcias MD [address] [place] [address] [address] [place] [phone] Medications Refill Social History Tobacco [...] mouth every 6 hours as needed for Muscle Spasms. 20 Tablet 09/10/2023 11/24/2023 documented in this encounter Miscellaneous Notes * Telephone Encounter - Steffanie Soler, RN - 09/10/2023 1010 EST Medication Refill Request Med & dose: methocarbamol 750 mg Sig Verified: 1 tab Q6 hrs PRN Pharm verified: NE[facility] Orte[facility] Last visit: 07/02/23 Next visit: 09/27/23 PRN med - pended as per previous rx documented in this encounter Plan of Treatment Not on file documented as of this encounter Visit Diagnoses Not on filedocumented in this encounter Discontinued Medications Medication Sig Discontinue Reason Start Date End Da te methocarbamoL (ROBAXIN) 750 mg tablet Take 1 Tablet by mouth every 6 hours as needed for Muscle Spasms. Reorder 01/15/2023 09/10/2023 documented as of this encounter Care Teams Sizer Hand Relationship Specialty Start Date End Date Mia Alexander DO [address] [place] [phone] PCP - General Family Medicine - Primary Care 01/29/[address] [place] [address] [id number] Site Monitor (CDE) Diabetes Education 11/29/23 11/29/23 documented as of this encounter
--- OUTSIDE RECORDS SUMMARY | 2024-06-16 00:23 | XMS_ITS | Encounter Summary ---
Author Organization [facility] Address [address] [place] [address] Care Team Providers Care Sales Clerk Food Name Role Phone Mia Alexander DO Primary Care Provider + Reason for Visit * Reason Onset Date Comments Medications Refill 08/25/2023 Encounter Details Date Type Department Care Team (Late st Contact Info) Description 08/25/2023 Refill [facility] Family Medicine [address], [facility] 2 [place] [address] Mia Alexander DO [address] [place] [address] [address] [place] [address] Medications Refill Social History Tobacco [...] hyperglycemia, without long-term current use of insulin ([facility]) Brand:per formulary; test blood sugar once daily (new Dx of Diabetes [facility] Hba1c 7.8%) 100 Each 08/27/2023 11/24/2023 LORazepam (ATIVAN) 0.5 mg tabletIndications:Genera lized anxiety disorder with panic attacks Take 1 Tablet by mouth 2 times daily as needed for up to 28 days for Anxiety (only if needed for severe anxiety). Daily Max: 1 mg 56 Tablet 08/27/2023 10/11/2023 documented in this encounter Miscellaneous Notes * Telephone Encounter - Taty Rodríguez RN - 08/27/2023 1022 EST [facility] CONTROLLED MEDICATION REFILL Medication: ativan Medication, dose, directions verified: 1 tablet by mouth 2 times daily as needed Pharmacy verified: [facility] [place] Last office visit: 07/02/2023 Next office visit: 09/27/2023 Prescription due to be filled: today Last urine drug screen: 07/02/2023 Last VPMS: Last sold 07/02/2023, 56 tablets for 28 days Last CSA: 07/02/2023 documented in this encounter Plan of Treatment Not on file documented as of this encounter Visit Diagnoses Diagnosis Generalized anxiety disorder with panic attacks Type 2 diabetes mellitus with hyperglycemia, without long-term current use of insulin ([facility]) documented in this encounter Discontinued Medications Medication Sig Discontinue Reason Start Date End Da te LORazepam (ATIVAN) 0.5 mg tabletIndications:Gener alized anxiety disorder with panic attacks Take 1 Tablet by mouth 2 times daily as needed for up to 28 days for Anxiety (only if needed for severe anxiety). Daily Max: 1 mg Reorder 07/02/2023 08/25/2023 blood glucose test stripsIndications:Type 2 diabetes mellitus with hyperglycemia, without long-term current use of insulin ([facility]) Brand:per formulary; test blood sugar once daily (new Dx of Diabetes [facility] Hba1c 7.8%) Reorder 07/07/2023 08/25/2023 documented as of this encounter Care Teams Sales Clerk Food Relationship Specialty Start Date End Date Mia Alexander DO [address] [phone] PCP - General Family Medicine - Primary Care 01/29/23 documented as of this encounter
--- OUTSIDE RECORDS SUMMARY | 2024-06-16 00:23 | XMS_ITS | Encounter Summary ---
Author Organization [facility] Address [address] [place] [address] Care Team Providers Care Skating Carhop Name Role Phone Mia Alexander Primary Care Provider + Encounter Details Date Type Department Care Team (Latest Contact Info) Description 11/24/2023 Documentation Visit [facility] - [place] [address] [place], [place] [id number] Devon Nicholson MD [address] [place] [address] Generalized anxiety disorder with panic attacks (Primary Dx) Social History Tobacco Use Types Packs/Day Years [...] on file documented as of this encounter Progress Notes * Devon Nicholson MD - 11/24/2023 0841 EST Images from the original note were not included. Interprofessional ([id number]) Psychiatry Consultation Note Requesting Provider: Mia Alexander DO Consultation from: Devon Nicholson MD The requesting provider obtained the patient's consent for this consult which is documented in the note dated: 11/18/23 Data reviewed includes: Clinical data available via Chart Review in [facility] including previous evaluations related to mental health. Reason for Consultation: Working on weaning off lorazepam and chronic opiates On fluoxetine 40 mg daily and continues to have significant anxiety with a lot of obsessive compulsive type tendencies and would like to know if there would be a better choice of medication and if sohow to change from fluoxetine to new medication Case Details: 43 yo F w/ LIDIA, chronic opiate use for pain, nicotine dependence and medical issues of obesity, type 2 DM, and past stroke (2019). Found benefit from psychotherapy which ended abruptly and then symptoms returned. Current anxiety with leaving house, lock-checking, checking whether cigarettes are extinguished. Previously worked full-time but stopped due to mother's and her own stroke. Not driving. Current Meds: Current Outpatient Medications: aspirin 81 mg EC tablet, TAKE ONE TABLET BY MOUTH ONE TIME DAILY., Disp: 100 Tablet, Rfl: 5 atorvastatin (LIPITOR) 40 mg tablet, TAKE ONE TABLET BY MOUTH ONE TIME DAILY, Disp: 90 Tablet, Rfl:3 blood glucose meter, Brand: One Touch Basic Or per formulary; test blood sugar once daily (new Dx of Diabetes [facility] Hba1c 7.8%), Disp: 1 Each, Rfl: 0 blood glucose test strips, Brand:per formulary; test blood sugar once daily (new Dx of Diabetes [id number] 7.8%), Disp: 100 Each, Rfl: 0 colestipoL (COLESTID) 1 gram tablet, Take 2 Tablets by mouth every morning AND 1 Tablet at bedtime.Take 2 tabs PO QAM and 1 tab PO QHS., Disp: 90 Tablet, Rfl: 2 diclofenac (VOLTAREN) 75 mg EC tablet, Take 1 Tablet by mouth 2 times daily., Disp: 180 Tablet, Rfl: 3 ferrous sulfate 325 mg (65 mg iron) EC tablet, Take 1 Tablet by mouth daily., Disp: 90 Tablet, Rfl:2 FLUoxetine (PROZAC) 40 mg capsule, TAKE ONE CAPSULE BY MOUTH ONE TIME DAILY, Disp: 90 Capsule, Rfl:3 HYDROcodone-acetaminophen (NORCO) 5-325 mg tablet, Take 1 Tablet by mouth every 6 hours as needed for Pain (only as needed for severe pain). Daily Max: 4 Tablets, Disp: 112 Tablet, Rfl: 0 hydrOXYzine (ATARAX) 10 mg tablet, Take 1 Tablet by mouth every 8 hours as needed for Anxiety., Disp: 30 Tablet, Rfl: 0 lancets, Brand: per formulary; test blood sugar once daily (new Dx of Diabetes [facility] Hba1c 7.8%), Disp: 100 Each, Rfl: 0 LORazepam (ATIVAN) 0.5 mg tablet, Take 0.5 Tablets by mouth 2 times daily. Daily Max: 0.5 mg, Disp:28 Tablet, Rfl: 0 metFORMIN (GLUCOPHAGE-XR) 500 mg ER tablet, Take 1 Tablet by mouth daily with breakfast., Disp: 90 Tablet, Rfl: 1 methocarbamoL (ROBAXIN) 750 mg tablet, Take 1 Tablet by mouth every 6 hours as needed for Muscle Spasms., Disp: 20 Tablet, Rfl: 0 naloxone (NARCAN) 4 mg/actuation nasal spray, 0.1 mL by nasal route as needed for Opioid Reversal.,Disp: 1 Each, Rfl: 1 nystatin (MYCOSTATIN) powder, APPLY 2 TIMES DAILY to affected areas under breasts and groin folds, Disp: 30 g, Rfl: 3 omeprazole (PRILOSEC) 20 mg capsule, TAKE ONE CAPSULE BY MOUTH ONE TIME DAILY, Disp: 90 Capsule, Rfl: 3 semaglutide 0.25 mg or 0.5 mg (2 mg/3 mL) pen injector, Inject 0.25 mg into the skin once a week for 28 days, THEN 0.5 mg once a week for 28 days., Disp: 2 Pen, Rfl: 0 Psych Med trials: Amitriptyline Abilify Bupropion Citalopram Clonazepam Fluoxetine Lamotrigine Lorazepam Nicotine lozenge Varenicline Medication Allergies: Allergies Allergen Reactions Augmentin [Amoxicillin-Pot Clavulanate] GI upset Oxycodone Itching Relevant Studies: No data to display CBC: Lab Results Component Value Date Hemoglobin 13.5 07/02/2023 PLT 425 (H) 07/02/2023 BMP: Lab Results Component Value Date Sodium 139 07/02/2023 Potassium 4.2 07/02/2023 CO2 Total 26 07/02/2023 Chloride 100 07/02/2023 BUN 22 07/02/2023 Creatinine 0.64 07/02/2023 eGFR 112 07/02/2023 Calcium 9.6 07/02/2023 Thyroid: Lab Results Component Value Date TSH 1.77 07/02/2023 Recommendations: In this patient, there are multiple options for addressing anxiety including behavioral and pharmacologic approaches. Since she benefited from psychotherapy, I recommend resuming individual or group.If she is interested in group therapy and has transportation to [place], the [facility] at [facility] is an option. I also suggest completing LIDIA-7 and PHQ-9 at future visits to monitor treatment response over time. Regarding pharmacotherapy, she is on sub-maximal dosing of fluoxetine at 40mg and typically max dosing is necessary to treat anxiety. I recommend increasing dose in 20mg increments every month to a max of fluoxetine 80mg daily. This should be dosed in the morning as it tends to be activating and thus, will not interfere with sleep. However, this activating quality can sometimes increase anxiety in some patients. Though I agree with tapering off lorazepam, it may be easier to decrease this medication once an effective SSRI dose is achieved. If fluoxetine increase is intolerable or ineffective, I recommend switching to an alternate SSRI like sertraline. Fluoxetine is a long-acting medication and can be tapered by 20mg every week while starting sertraline 25mg for one week and increasing to 50mg daily. Again, max dosing is likely necessary so sertraline 200mg daily is the target. Lastly, an SNRI like duloxetine can be considered as this may have additional pain properties though the adrenergic component can increase blood pressure/heart rate. Start at 30mg daily and after one week, increase to 60mg daily while tapering fluoxetine.With any serotonergic agent, there is theoretical risk of increased bleeding. Continue lifestyle modifications -- encourage regular movement (ideally daily) that can be strength-exercise, dance, yoga, stretching, walking, etc -- maintain social connection -- incorporate non-processed foods like fresh vegetables, fruit, and water -- limit alcohol use -- practice good sleep hygiene including no use of devices with screens in the hour prior to bedtime Sleep Hygiene Recommendations Limit Alcohol Set a regular Bedtime and Rise Time Limit Caffeine Use after 12 noon Avoid Napping Avoid Nicotine Exercise regularly, as tolerated Avoid large meals close to bedtime Keep sleep environment quiet and dark Devon Nicholson MD Psychiatrist, Primary Care Mental Health Integration [facility] 11/24/23 8:41 I spent 25 minutes in medical consultative time which includes verbal discussion and the written report above. Greater than 50% of the total time was devoted to medical consultative verbal (or internet) discussion. This recommendation is based on a chart review and the clinical data available to me and is furnished without benefit of a physical or direct examination. The recommendations will need to be interpreted in light of any clinical issues or changes in patient status not available to me at the time of your filing this consultation question through the [facility] medicationconsultation referral. Significant changes in patient condition or level of acuity should result inimmediate formal consultation and re-evaluation. Thank you. documented in this encounter Plan of Treatment Not on file documented as of this encounter Visit Diagnoses Diagnosis Generalized anxiety disorder with panic attacks- Primary documented in this encounter Care Teams Skating Carhop Relationship Specialty Start Date End Date Mia Alexander DO [address] [place] [phone] PCP - General Family Medicine - Primary Care 01/29/23 documented as of this encounter
--- OUTSIDE RECORDS SUMMARY | 2024-06-16 00:23 | XMS_ITS | Encounter Summary ---
Author Organization [facility] Address [address] [place] [address] Care Team Providers Care Electronic Communications Technician Name Role Phone Mia Alexander DO Primary Care Provider + Reason for Visit * Reason Onset Date Comments Medication Management 11/24/2023 Encounter Details Date Type Department Care Team (Late st Contact Info) Description 11/24/2023 Telephone [facility] [place] [address], [place] [address] [place] [address] Mia Alexander DO [address] [place] [address] [address] [place] [phone] Medication Management Social History Tobacco Use Types Packs/Day Years [...] Dispensed Refills Start Date End Da te lancetsIndications:Typ e 2 diabetes mellitus with hyperglycemia, without long-term current use of insulin ([facility]) Use 1 Lancet as directed daily. Brand: per formulary; test blood sugar once daily 100 Each 3 11/24/2023 blood glucose test stripsIndications:Type 2 diabetes mellitus with hyperglycemia, without long-term current use of insulin ([facility]) Use 1 Strip as directed daily. Brand:per formulary; test blood sugar once daily 100 Each 3 11/24/2023 03/14/2024 FLUoxetine (PROZAC) 20 mg capsuleIndications:Gen eralized anxiety disorder with panic attacks,Recurrent major depressive disorder, in full remission ([facility]) Take 1 Capsule by mouth daily. With 40 mg fluoxetine for total daily dose of 60 mg 30 Capsule 3 11/24/2023 04/12/2024 documented in this encounter Miscellaneous Notes * Telephone Encounter - Mia Alexander DO - 11/24/2023 1319 EST My Chart message Dr Nicholson's initial recommendation is for an increase in dose of fluoxetine from 40 mg to 60 mg Checking with pt on whether to go up by 10 mg every 4 weeks or if she want to go up by 20 mg now Also need to check on therapy referral Refill lancets and test strips for glucometer documented in this encounter Plan of Treatment Not on file documented as of this encounter Visit Diagnoses Diagnosis Generalized anxiety disorder with panic attacks- Primary Recurrent major depressive disorder, in full remission ([facility]) Type 2 diabetes mellitus with hyperglycemia, without long-term current use of insulin ([facility]) documented in this encounter Discontinued Medications Medication Sig Discontinue Reason Start Date End Da te methocarbamoL (ROBAXIN) 750 mg tablet Take 1 Tablet by mouth every 6 hours as needed for Muscle Spasms. Therapy completed 09/10/2023 11/24/2023 blood glucose meterIndications:Type 2 diabetes mellitus with hyperglycemia, without long-term current use of insulin ([facility]) Brand: One Touch Basic Or per formulary; test blood sugar once daily (new Dx of Diabetes [facility] Hba1c 7.8%) Alternate therapy 07/07/2023 11/24/2023 lancetsIndications:Type 2 diabetes mellitus with hyperglycemia, without long-term current use of insulin ([facility]) Brand: per formulary; test blood sugar once daily (new Dx of Diabetes [facility] Hba1c 7.8%) Reorder 07/07/2023 11/24/2023 blood glucose test stripsIndications:Type 2 diabetes mellitus with hyperglycemia, without long-term current use of insulin ([facility]) Brand:per formulary; test blood sugar once daily (new Dx of Diabetes [facility] Hba1c 7.8%) Reorder 08/27/2023 11/24/2023 documented as of this encounter Historical Medications * This list may reflect changes made after this encounter. Medication Sig Dispensed Refills Start Date End Date ONETOUCH ULTRASOFT 2 LANCET 30 gauge misc Use 1 Lancet as directed daily. 07/08/2023 ONETOUCH ULTRA2 METER Use 1 Strip as directed daily. 07/08/2023 added in this encounter Care Teams Electronic Communications Technician Relationship Specialty Start Date End Date Mia Alexander DO [address] [place] [phone] PCP - General Family Medicine - Primary Care 01/29/23 documented as of this encounter
--- OUTSIDE RECORDS SUMMARY | 2024-06-16 00:23 | XMS_ITS | Encounter Summary ---
Author Organization [facility] Address [address] [place] [address] Care Team Providers Care Manufacture Specialist Name Role Phone Mia Alexander DO Primary Care Provider + Reason for Visit * Reason Onset Date Comments Sore Throat 06/28/2023 Otalgia 06/28/2023 Dental Pain 06/28/2023 Appointment Related 06/28/2023 Encounter Details Date Type Department Care Team (Late st Contact Info) Description 06/28/2023 Telephone [facility] [address], [facility] [address] [place] [address] Mia Alexander DO [address] [facility] [address] [place] [phone] Sore Throat; Otalgia; Dental Pain; Appointment Related Social History Tobacco Use Types Packs/Day Years Used Date Smoking Tobacco: Every Day Cigarettes Smokeless Tobacco: Never Alcohol Use Standard Drinks/Week [...] encounter Miscellaneous Notes * Telephone Encounter - Jonnycarey Smiley - 06/28/2023 1619 EDT Notified patient. * Telephone Encounter - Preeti Roberto - 06/28/2023 1401 EDT Patient reports she has an OV Monday 07/02. She reports having sore throat, ear pain & tooth pain. She said family members have been sick on again/off again for last wk. She claims to have testednegative for Covid today. Advise on if she should be seen sooner? documented in this encounter Plan of Treatment Not on file documented as of this encounter Visit Diagnoses Not on filedocumented in this encounter Care Teams Manufacture Specialist Relationship Specialty Start Date End Date Mia Alexander DO [address] [place] [phone] PCP - General Family Medicine - Primary Care 01/29/23 documented as of this encounter
--- OUTSIDE RECORDS SUMMARY | 2024-06-16 00:23 | XMS_ITS | Encounter Summary ---
Author Organization [facility] Address [address] [place] [address] Care Team Providers Care Welt Wheeler Name Role Phone Mia Alexander DO Primary Care Provider + Reason for Visit * Reason Onset Date Comments Medications Refill 11/16/2023 Encounter Details Date Type Department Care Team (Late st Contact Info) Description 11/16/2023 Refill [facility] Family Medicine [address], [facility] 2 [place] [address] Mia Alexander DO [address] [facility] [address] [place] [phone] Medications Refill Social History Tobacco [...] Telephone Encounter - Mia Alexander DO - 11/18/2023 1557 EST Needs to be handled at office visit * Telephone Encounter - Steffanie Soler, RN - 11/18/2023 1314 EST Medication Refill Request Med & dose: hydrocodone-APAP 5-325 mg Sig Verified: 2 tabs Q12 hrs PRN severe pain Pharm verified: [facility] [place] Last visit: 07/02/23 Next visit: 11/18/23 CSA - 07/02/23 UDS - 07/02/23 last rx - 10/21/23, #112 for 28 days VPMS - last p/u 10/21/23, #112 Next due - 11/18/23 I suspect you were planning to renew this at pt's visit this afternoon? If so, just send back to meand I'll unpend it. documented in this encounter Plan of Treatment Not on file documented as of this encounter Visit Diagnoses Diagnosis Chronic pain syndrome- Primary documented in this encounter Care Teams Welt Wheeler Relationship Specialty Start Date End Date Mia Alexander DO [address] [place] [phone] PCP - General Family Medicine - Primary Care 01/29/23 documented as of this encounter
--- OUTSIDE RECORDS SUMMARY | 2024-06-16 00:23 | XMS_ITS | Encounter Summary ---
Author Organization [facility] Address [address] [place] [address] Care Team Providers Care Distribution Center Administrator Name Role Phone Mia Alexander Primary Care Provider + Reason for Visit * Reason Comments Medications Refill Encounter Details Date Type Department Care Team (Late st Contact Info) Description 01/09/2024 Refill [facility] Family Medicine - [place] [phone] , [place] [address] [place] [address] Aydne Angulo MD Medications Refill Social History Tobacco Use Types [...] Miscellaneous Notes * Telephone Encounter - Steffanie Soler RN - 01/11/2024 1224 EDT Medication Refill Request Med & dose: amlodipine 5 mg Sig Verified: 1 tab QD Pharm verified: [facility] Last visit: 2/29/24 Next visit: 01/17/24 Marked as not taking as of 11/18/23. Request denied. documented in this encounter Plan of Treatment Not on file documented as of this encounter Visit Diagnoses Not on filedocumented in this encounter Care Teams Distribution Center Administrator Relationship Specialty Start Date End Date Mia Alexander DO [address] [place] [phone] PCP - General Family Medicine - Primary Care 01/29/23 documented as of this encounter
--- OUTSIDE RECORDS SUMMARY | 2024-06-16 00:23 | XMS_ITS | Encounter Summary ---
Author Organization [facility] Address [address] [place] [address] Care Team Providers Care Senior Visual Designer Name Role Phone Mia Alexander DO Primary Care Provider + NicolasJavier byrd RD Unavailable [phone] Reason for Visit * Reason Onset Date Comments Medications Refill 09/23/2023 Encounter Details Date Type Department Care Team (Late st Contact Info) Description 09/23/2023 Refill [facility] Family Medicine [address], [facility] 2 [place] [address] Mia Alexander DO [address] [place] [address] [address] [place] [phone] Medications Refill Social History Tobacco [...] on file documented as of this encounter Plan of Treatment Not on file documented as of this encounter Visit Diagnoses Diagnosis Chronic pain syndrome documented in this encounter Care Teams Senior Visual Designer Relationship Specialty Start Date End Date Mia Alexander DO [address] [place] [phone] PCP - General Family Medicine - Primary Care 01/29/[address] [place] [phone] [employer] Accounts Manager (CDE) Diabetes Education 11/29/23 11/29/23 documented as of this encounter
--- OUTSIDE RECORDS SUMMARY | 2024-06-16 00:23 | XMS_ITS | Encounter Summary ---
Author Organization [facility] Address [address] [place] [address] Care Team Providers Care Employee Communications Specialist Name Role Phone Mia Alexander DO Primary Care Provider + Reason for Visit * Reason Onset Date Comments Medications Refill 07/22/2023 Pt is out RX Encounter Details Date Type Department Care Team (Late st Contact Info) Description 07/22/2023 Refill [facility] Family Medicine [address], [facility] [address] [place] [address] Mia Alexander DO [address] [place] [address] [address] [place] [phone] Medications Refill (Pt is out RX) Social History Tobacco Use Types Packs/Day Years [...] Date End Da te HYDROcodone-acetaminophe n (NORCO) 10-325 mg tabletIndications:Chroni c pain syndrome Take 1 Tablet by mouth every 12 hours as needed for up to 28 days for Pain (only as needed for severe pain). Daily Max: 2 Tablets 56 Tablet 2023 08/24/2023 documented in this encounter Miscellaneous Notes * Telephone Encounter - Taty Rodríguez RN - 07/27/2023 1608 EST [facility] CONTROLLED MEDICATION REFILL Medication: hydrocodone-acetaminophen 10-325mg Medication, dose, directions verified: every 12 hours PRN Pharmacy verified: verified Last office visit: 07/02/2023 Next office visit: 09/27/2023 Prescription due to be filled: 2023 Last urine drug screen: UTD Last VPMS: Last filled 07/02/2023, 56 tablets for 28 days Last CSA: UTD * Telephone Encounter - Deloris Rod - 07/27/2023 1323 EST Pt is out of Hydrocodone. [place], [place]. documented in this encounter Plan of Treatment Not on file documented as of this encounter Visit Diagnoses Diagnosis Chronic pain syndrome- Primary documented in this encounter Discontinued Medications Medication Sig Discontinue Reason Start Date End Da te HYDROcodone-acetaminophe n (NORCO) 10-325 mg tablet Take 1 Tablet by mouth every 12 hours as needed for up to 28 days for Pain (only as needed for severe pain). Daily Max: 2 Tablets Reorder 07/02/2023 07/22/2023 documented as of this encounter Care Teams Employee Communications Specialist Relationship Specialty Start Date End Date Mia Alexander DO [address] [place] [phone] PCP - General Family Medicine - Primary Care 01/29/23 documented as of this encounter
--- OUTSIDE RECORDS SUMMARY | 2024-06-16 00:23 | XMS_ITS | Encounter Summary ---
Author Organization [facility] Address [address] [place] [address] Care Team Providers Care Wedger Machine Name Role Phone Mia Alexander DO Primary Care Provider + Reason for Visit * Reason Onset Date Comments Medications Refill 05/25/2023 Encounter Details Date Type Department Care Team (Late st Contact Info) Description 05/25/2023 Refill [facility] Family Medicine [address], [facility] 2 [place] [address] Mia Alexander DO [address] [place] [address] [address] [place] [address] Medications Refill Social History Tobacco [...] End Da te LORazepam (ATIVAN) 0.5 mg tabletIndications:LIDIA (generalized anxiety disorder) Take 1 Tablet by mouth 2 times daily as needed for Anxiety. Daily Max: 1 mg 14 Tablet 05/25/2023 06/06/2023 documented in this encounter Miscellaneous Notes * Telephone Encounter - Pamela Patton MA - 05/25/2023 1016 EDT Deloris Rod ?? 05/25/23 ??9:57 Note Pt requesting refill of [place]. [place] Per other TE from today. Controlled Medication Refill Request Medication and dose: Lorazepam Verified: Yes Pharmacy verified: Yes Last visit: 12/22/2022 Next visit: 06/02/2023 CSA: UTD UDS: UTD Date prescription due: today VPMS: Med: ativan Date Last Filled: 05/05/23 Quantity: #14, 7 days RG-to covering provider, pended per last rx. documented in this encounter Plan of Treatment Not on file documented as of this encounter Visit Diagnoses Diagnosis LIDIA (generalized anxiety disorder)- Primary Generalized anxiety disorder documented in this encounter Discontinued Medications Medication Sig Discontinue Reason Start Date End Da te LORazepam (ATIVAN) 0.5 mg tabletIndications:LIDIA (generalized anxiety disorder) Take 1 Tablet by mouth 2 times daily as needed for Anxiety. Daily Max: 1 mg Reorder 05/05/2023 05/25/2023 documented as of this encounter Care Teams Wedger Machine Relationship Specialty Start Date End Date Mia Alexander DO [address] [place] [phone] PCP - General Family Medicine - Primary Care 01/29/23 documented as of this encounter
--- OUTSIDE RECORDS SUMMARY | 2024-06-16 00:23 | XMS_ITS | Encounter Summary ---
Author Organization [facility] Address [address] [place] [address] Care Team Providers Care Temperature Control Inspector Name Role Phone Mia Alexander DO Primary Care Provider + Reason for Visit * Reason Onset Date Comments Medications Refill 08/25/2023 Encounter Details Date Type Department Care Team (Late st Contact Info) Description 08/25/2023 Refill [facility] Family Medicine [address], [facility] 2 [place] [address] Mia Alexander DO [address] [place] [address] [address] [place] [phone] Medications Refill Social History Tobacco [...] encounter Miscellaneous Notes * Telephone Encounter - Angel Anton RN - 08/27/2023 1431 EST Already done documented in this encounter Plan of Treatment Not on file documented as of this encounter Visit Diagnoses Diagnosis Chronic pain syndrome- Primary documented in this encounter Care Teams Temperature Control Inspector Relationship Specialty Start Date End Date Mia Alexander DO [address] [place] [phone] PCP - General Family Medicine - Primary Care 01/29/23 documented as of this encounter
--- OUTSIDE RECORDS SUMMARY | 2024-06-16 00:23 | XMS_ITS | Encounter Summary ---
Author Organization [facility] Address [address] [place] [address] Care Team Providers Care Shaft Mechanic Name Role Phone Mia Alexander DO Primary Care Provider + Reason for Visit * Reason Comments Medications Refill Encounter Details Date Type Department Care Team (Late st Contact Info) Description 01/09/2024 Refill [facility] Family Medicine [address], [facility] 2 [place] [address] Mia Alexander DO [address] [facility] [address] [place] [phone] Medications Refill Social History Tobacco [...] every morning AND 1 Tablet at bedtime 90 Tablet 2 01/11/2024 04/12/2024 documented in this encounter Miscellaneous Notes * Telephone Encounter - Steffanie Soler, RN - 01/11/2024 1235 EDT Medication Refill Request Med & dose: colestipol 1 g Sig Verified: 2 tabs QAM and 1 tab QHS Pharm verified: Tracey Garcia [place], [place] Last visit: 11/18/23 Next visit: 01/17/24 last lipids - 07/02/23 Rx(s) escribed to pharmacy. documented [...] every morning AND 1 Tablet at bedtime. Take 2 tabs PO QAM and 1 tab PO QHS. 10/11/2023 01/11/2024 documented as of this encounter Care Teams Shaft Mechanic Relationship Specialty Start Date End Date Mia Alexander DO [address] [place] [phone] PCP - General Family Medicine - Primary Care 01/29/23 documented as of this encounter
--- OUTSIDE RECORDS SUMMARY | 2024-06-16 00:23 | XMS_ITS | Encounter Summary ---
Author Organization [facility] Address [address] [place] [address] Care Team Providers Care Clinical Dietician Name Role Phone Mia Alexander DO Primary Care Provider + Reason for Visit * Reason Onset Date Comments Medications Refill 12/13/2023 Encounter Details Date Type Department Care Team (Late st Contact Info) Description 12/13/2023 Refill [facility] Family Medicine [address], [facility] 2 [place] [address] Mia Alexander DO [address] [place] [address] [address] [place] [address] Medications Refill Social History Tobacco [...] Dispensed Refills Start Date End Da te hydrOXYzine (ATARAX) 10 mg tabletIndications:Genera lized anxiety disorder with panic attacks Take 1 Tablet by mouth every 8 hours as needed for Anxiety. 30 Tablet 12/14/2023 HYDROcodone-acetaminophe n (NORCO) 5-325 mg tabletIndications:Chroni c pain syndrome Take 1 Tablet by mouth every 6 hours as needed for up to 28 days for Pain (only as needed for severe pain). Daily Max: 4 Tablets 112 Tablet 12/17/2023 01/14/2024 HYDROcodone-acetaminophe n (NORCO) 5-325 mg tabletIndications:Chroni c pain syndrome Take 1 Tablet by mouth every 6 hours as needed for up to 31 days for Pain (only as needed for severe pain). Daily Max: 4 Tablets 112 Tablet 01/14/2024 02/08/2024 documented in this encounter Miscellaneous Notes * Telephone Encounter - Steffanie Soler RN - 12/14/2023 1140 EDT Controlled Medication Refill Request Med & Dose: hydroxyzine 10mg, 1 tab Q8 hrs PRN anxiety hydrocodone-APAP 5-325mg, 1 tab Q6 hrs PRN severe pain Sig verified: yes Pharmacy verified: Tracey Garcia [place] Last visit: 11/18/23 Next visit: 01/26/24 CSA: 07/02/23 UDS: 07/02/23 Last rx of [place] - 11/19/23, #112 for 28 days NR VPMS - Last picked up: 11/19/23, #112 Next Due: 12/17/23 OK to renew? documented in this encounter Plan of Treatment Not on file documented as of this encounter Visit Diagnoses Diagnosis Generalized anxiety disorder with panic attacks Chronic pain syndrome documented in this encounter Discontinued Medications Medication Sig Discontinue Reason Start Date End Da te hydrOXYzine (ATARAX) 10 mg tabletIndications:Genera lized anxiety disorder with panic attacks Take 1 Tablet by mouth every 8 hours as needed for Anxiety. Reorder 11/18/2023 12/13/2023 HYDROcodone-acetaminophe n (NORCO) 5-325 mg tabletIndications:Chroni c pain syndrome Take 1 Tablet by mouth every 6 hours as needed for Pain (only as needed for severe pain). Daily Max: 4 Tablets Reorder 11/19/2023 12/13/2023 documented as of this encounter Care Teams Clinical Dietician Relationship Specialty Start Date End Date Mia Alexander DO [address] [place] [address] [phone] PCP - General Family Medicine - Primary Care 01/29/23 documented as of this encounter
--- OUTSIDE RECORDS SUMMARY | 2024-06-16 00:23 | XMS_ITS | Encounter Summary ---
Author Organization [facility] Address [address] [place] [address] Care Team Providers Care Silver Lap Machine Tender Name Role Phone Mia Alexander DO Primary Care Provider + Javier Valenzuela RD Unavailable [phone] Reason for Visit * Reason Comments Medications Refill Encounter Details Date Type Department Care Team (Late st Contact Info) Description 10/03/2023 Refill [facility] Family Medicine [address], [facility] 2 [place] [address] Mia Alexander DO [address] [facility] [address] [place] [phone] Medications Refill Social History Tobacco [...] PO QAM and 1 tab PO QHS. 90 Tablet 2 10/11/2023 01/11/2024 documented in this encounter Miscellaneous Notes * Telephone Encounter - Debbie Linda LPN - 10/05/2023 1121 EST TE to AW, ok for pt to take as 2 tabs QAM and 1 tab PO at bedtime? Order pended with those instructions. * Telephone Encounter - Setffanie Soler, BARNEY - 10/05/2023 0919 EST Medication Refill Request Med & dose: colestipol 1 g Sig Verified: 2 tabs QD Pharm verified: Tracey [place] Last visit: 07/02/23 Next visit: 11/18/23 MyChart msg sent to pt verifying current dose. documented in this encounter Plan of Treatment Not on file documented as of this encounter Visit Diagnoses Diagnosis Postcholecystectomy diarrhea Other postoperative functional disorders documented in this encounter Discontinued Medications Medication Sig Discontinue Reason Start Date End Da te colestipoL (COLESTID) 1 gram tabletIndications:Postch olecystectomy diarrhea Take 2 Tablets by mouth daily. 07/02/2023 10/11/2023 documented as of this encounter Care Teams Silver Lap Machine Tender Relationship Specialty Start Date End Date Mia Alexander DO [address] [place] [phone] PCP - General Family Medicine - Primary Care 01/29/[address] [place] [address] [phone] Animal Sitter (CDE) Diabetes Education 11/29/23 11/29/23 documented as of this encounter
--- OUTSIDE RECORDS SUMMARY | 2024-06-16 00:23 | XMS_ITS | Encounter Summary ---
Author Organization [facility] Address [address] [place] [address] Care Team Providers Care Television Reporter Name Role Phone Mia Alexander DO Primary Care Provider + Reason for Visit * Reason Onset Date Comments Prior Auth, Medication 05/26/2023 Hydrocodo ne-Acet Encounter Details Date Type Department Care Team (Late st Contact Info) Description 05/26/2023 Telephone [facility] Medicine [address], [facility] 2 [place] [address] Mia Alexander DO [address] [facility] [address] [place] [address] Prior Auth, Medication (Hydrocodone-Acet ) Social History Tobacco Use Types Packs/Day Years [...] Telephone Encounter - Kriss Jacobs RN - 05/26/2023 1601 EDT Informed pt * Telephone Encounter - Kriss Jacobs RN - 05/26/2023 1558 EDT PA submitted through [employer]. * Telephone Encounter - Tonya Florentino - 05/26/2023 1403 EDT Pt called about a refill for this med. She would like a call back. She is due today * Telephone Encounter - Gage Ford MA - 05/26/2023 1254 EDT PA Needed for: RX: Hydrocodone-Acet 10-325 mg tab Yung: [id number] [employer]/[facility] documented in this encounter Plan of Treatment Not on file documented as of this encounter Visit Diagnoses Not on filedocumented in this encounter Care Teams Television Reporter Relationship Specialty Start Date End Date Mia Alexander DO [address] [place] [address] [phone] PCP - General Family Medicine - Primary Care 01/29/23 documented as of this encounter
--- OUTSIDE RECORDS SUMMARY | 2024-06-16 00:23 | XMS_ITS | Encounter Summary ---
Author Organization [facility] Address [address] [place] [address] Care Team Providers Care Instructional Systems Designer Name Role Phone Mia Alexander DO Primary Care Provider + Javier Valenzuela RD Unavailable [phone] Reason for Visit * Reason Comments Nutrition Counseling DM * Consult (Routine/Next Available) - Authorization Not Required Specialty Diagnoses / Procedures [facility] Referred To Contact Diagnoses Type 2 diabetes mellitus with hyperglycemia, without long-term current use of insulin ([facility]) Class 3 severe obesity due to excess calories with serious comorbidity and body mass index (BMI) of 50.0 to 59.9 in adult ([facility]) Generalized anxiety disorder with panic attacks Mia Alexander, [address] [facility] [address] [place] [phone], [facility] 2 [place] [address] Referral ID Status Reason Start Date Expiration Date Visits Requested Visits Authorized [id number] Authorization Not Required Specialty Services Required 4 1 1 Encounter Details Date Type Department Care Team ([facility] Contact Info) Description 11/29/2023 11:00 EDT Community Health Team [facility] Adult Primary Care - [address] [phone] Cht Registered Dietitian, [facility] Social History Tobacco Use Types Packs/Day Years [...] as of this encounter Progress Notes * Javier Valenzuela, JUJU - 11/29/2023 1100 EDT The concept of ???Telemedicine?? has been described to the patient.? Patient has been informed of the anticipated benefits and possible risks.? Patient understands the information provided regardingtelemedicine, has had the opportunity to ask questions about this information, and all questions have been answered to patient???s satisfaction. Patient consents for the use of telemedicine in his/her medical care and authorizes the transmission of any relevant medical information to providers and their staff involved in patient???s medical or mental health care. Patient understands that they maybe responsible for copays, deductible or coinsurance for this service. Allie consults [facility]/RDN for diabetes education via telemedicine. She has had 2 extended family members have leg amputations due to diabetes and she does not want this for herself. Seeing this has made her make changes to her eating and activity. She reduced her A1c from 7.8 to 6.7 Her has been very supportive of her changes and her mother bakes her items for sugar substitutes so she feels that she has good support in making healthy lifestyle changes. She is on 500 mg metformin ER and 0.25 mg Ozempic. She took her second injection yesterday and has not noted any G/I disturbances. She has cut out sweets and soda form her diet and has reduced the amount of carbs she eats (2-3 T portions of grains and potatoes). She has a knowledge deficit concerning carbohydrate containing foods and appropriate portions of them. She has recently resumed taking a daily 15-30 minute walk and notes that it improves her mood and energy. Typical intake: Breakfast: 1/2 slice of banana bread Lunch: dinner leftovers such as 3 oz chicken, 1/4 c potato, 1/2 c nonstarchy vegetable Dinner: 4 oz protein, 1/4 c starch, 1/2 c nonstarchy vegetable She knows she drinks too many sugar free Monster energy drinks (4-6 daily) and not enough water andwants to start drinking more water. She has questions regarding what she should and shouldn't eat and appropriate portions of variouscarbohydrate foods. Affirmed progress made with diet and activity changes and reducing A1c. Review sources of carbohydrates, serving sizes, how fiber rich carbs increase satiety, lower blood sugar spikes and are beneficial to regulate appetite, weight, and lipids. Recommend 3 servings carbs per meal, 1 per snack and to fill half of lunch and dinner plates with nonstarchy vegetables. Affirmed decision to decrease energy drinks and increase water. Review how increasing water intake helps regulate appetite, can assist with weight loss and blood sugar regulation. Review how high caffeine intake could increase blood sugar. Allie plans on gradually decreasing her Monster drinks by 1 every 3-4 days and replacing with an equal amount of water until she reaches 4-6 glasses water and 1 Monster daily. She plans on increasing starchy vegetable and grain/potato servings to 1/2 cup and adding a vegetable to dinner. F/U was not desired at this time. F/U PRN documented in this encounter Plan of Treatment Not on file documented as of this encounter Visit Diagnoses Not on filedocumented in this encounter Care Teams Instructional Systems Designer Relationship Specialty Start Date End Date Mia Alexander DO [address] [place] [address] [phone] PCP - General Family Medicine - Primary Care 01/29/[address] [place] [address] [phone] Stable Helper (CDE) Diabetes Education 11/29/23 11/29/23 documented as of this encounter
--- OUTSIDE RECORDS SUMMARY | 2024-06-16 00:23 | XMS_ITS | Encounter Summary ---
Author Organization [facility] Address [address] [place] [address] Care Team Providers Care Network Technician Name Role Phone Mia Alexander DO Primary Care Provider + Reason for Visit * Reason Comments Follow-up Chronic Pain Encounter Details Date Type Department Care Team (Late st Contact Info) Description 07/02/2023 15:15 EDT Office Visit [facility] [address], [address] [place] [address] Mia Alexander DO [address] [place] [address] [address] [place] [address] Chronic pain syndrome (Primary Dx); Cigarette nicotine dependence without complication; Generalized anxiety disorder with panic attacks; Essential hypertension; Benzodiazepine dependence, continuous ([facility]); Vitamin D deficiency; Gastroesophageal reflux disease, unspecified whether esophagitis present; Hyperglycemia; Class 3 severe obesity due to excess calories with serious comorbidity and body mass index (BMI) of 50.0 to 59.9 in adult (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) use of non-steroidal anti-inflammatories (nsaid); Encounter for long-term current use of medication; Encounter for screening for viral disease; Encounter for hepatitis C screening test for low risk patient; Need for hepatitis B screening test Social History Tobacco Use Types Packs/Day Years Used Date Smoking Tobacco: Every Day Cigarettes 1 32.7 Started: 1991 Smokeless Tobacco: Never Tobacco Cessation:Ready to Q uit: No Alcohol Use Standard Drinks/Week Comments Yes 0 [...] Sign Reading Time Taken Comments Blood Pressure 118/78 07/02/2023 1521 EDT Pulse 93 07/02/2023 1521 EDT Temperature - - Respiratory Rate 18 07/02/2023 1521 EDT Oxygen Saturation 98% 07/02/2023 1521 EDT Inhaled Oxygen Concentration - - Weight 122.2 kg (269 lb 8 oz) 07/02/2023 1521 ED T Height - - Body Mass Index 54.43 09/05/2019 1304 EST documented in this encounter Ordered Prescriptions Prescription Sig Dispensed Refills Start Date End Da amLODIPine (NORVASC) 5 mg tablet Take 0.5 Tablets by mouth daily. For 1 week then stop 90 Tablet 4 07/02/2023 11/18/2023 colestipoL (COLESTID) 1 gram tabletIndications:Postch olecystectomy diarrhea Take 2 Tablets by mouth daily. 60 Tablet 2 07/02/2023 10/11/2023 LORazepam (ATIVAN) 0.5 mg tabletIndications:Genera lized anxiety disorder with panic attacks Take 1 Tablet by mouth 2 times daily as needed for up to 28 days for Anxiety (only if needed for severe anxiety). Daily Max: 1 mg 56 Tablet 07/02/2023 08/25/2023 LORazepam (ATIVAN) 0.5 mg tablet Take 1 Tablet by mouth 2 times daily as needed for up to 28 days for Anxiety (only if needed for severe anxiety). Daily Max: 1 mg 56 Tablet 07/02/2023 07/02/2023 HYDROcodone-acetaminophe n (NORCO) 10-325 mg tablet Take 1 Tablet by mouth every 12 hours as needed for up to 28 days for Pain (only as needed for severe pain). Daily Max: 2 Tablets 56 Tablet 07/02/2023 07/22/2023 documented in this encounter Progress Notes * Mia Alexander, DO - 07/02/2023 1515 EDT Images from the original note were not included. Encounter date: 07/02/2023 Chief complaint Chief Complaint Patient presents with ??? Follow-up ??? Chronic Pain Assessment and Plan Allie is a/an 42 y.o. female with the following identified concerns discussed during this medical encounter: ICD-10-CM ICD-9-CM 1. Chronic pain syndrome G89.4 338.4 TSH CK 2. Cigarette nicotine dependence without complication F17.210 305.1 LIPID PROFILE (INCLUDES CHOLESTEROL, TRIGLYCERIDES, HDL, LDL) 3. Generalized anxiety disorder with panic attacks F41.1 300.02 T4 FREE F41.0 300.01 TSH LORazepam (ATIVAN) 0.5 mg tablet 4. Essential hypertension I10 401.9 T4 FREE COMPLETE BLOOD COUNT AND DIFFERENTIAL COMPREHENSIVE METABOLIC PANEL (CMP) MAGNESIUM 5. Benzodiazepine dependence, continuous ([facility]) F13.20 304.11 6. Vitamin D deficiency E55.9 268.9 VITAMIN D (25,OH) 7. Gastroesophageal reflux disease, unspecified whether esophagitis present K21.9 530.81 COMPREHENSIVE METABOLIC PANEL (CMP) 8. Hyperglycemia R73.9 790.29 HEMOGLOBIN A1C LIPID PROFILE (INCLUDES CHOLESTEROL, TRIGLYCERIDES, HDL, LDL) 9. Class 3 severe obesity due to excess calories with serious comorbidity and body mass index (BMI)of 50.0 to 59.9 in adult ([facility]) E66.01 278.01 Z68.43 V85.43 10. Elevated C-reactive protein (CRP) R79.82 790.95 C REACTIVE PROTEIN 11. Postcholecystectomy diarrhea K91.89 564.4 colestipoL (COLESTID) 1 gram tablet R19.7 12. Long-term current use of benzodiazepine Z79.899 V58.69 ALCOHOL METABOLITE CONFIRMATION PANEL BENZODIAZEPINE PANEL CONFIRMATION DRUG SCREEN 12, URINE OPIOIDS AND METABOLITES CONFIRMATION PANEL 13. Encounter for long-term use of opiate analgesic Z79.891 V58.69 ALCOHOL METABOLITE CONFIRMATION PANEL BENZODIAZEPINE PANEL CONFIRMATION DRUG SCREEN 12, URINE OPIOIDS AND METABOLITES CONFIRMATION PANEL 14. retirement (current) use of non-steroidal anti-inflammatories (nsaid) Z79.1 V58.64 T4 FREE COMPLETE BLOOD COUNT AND DIFFERENTIAL CK 15. Encounter for long-term current use of medication Z79.899 V58.69 TSH HEMOGLOBIN A1C COMPREHENSIVE METABOLIC PANEL (CMP) MAGNESIUM LIPID PROFILE (INCLUDES CHOLESTEROL, TRIGLYCERIDES, HDL, LDL) 16. Encounter for screening for viral disease Z11.59 V73.99 HEPATITIS A TOTAL ANTIBODY W REFLEX 17. Encounter for hepatitis C screening test for low risk patient Z11.59 V73.89 HEPATITIS C AB W REFLEX TO HCV RNA BY PCR 18. Need for hepatitis B screening test Z11.59 V73.89 HEPATITIS B SURFACE ANTIBODY Follow-up in 3 month(s). A total of 50 minutes was spent in reviewing medical history, performing examination and evaluation, counseling, ordering and interpreting tests, care coordination, and documenting clinical information on the day of the encounter. Orders Other Orders Placed This Visit Procedures ??? Alcohol Metabolite Confirmation Panel, U ??? Benzodiazepine Panel Confirmation, U ??? Drug Screen 12, Urine (Amphetamine, Barbiturates, Benzodiazepine, Cannabinoids, Cocaine, Methamphetamine, Methadone, Opiates, Oxycodone, Phencyclidine, Propoxyphene, Tricyclics) ??? Opioids and Metabolites Confirmation Panel, U ??? T4, Free ??? TSH ??? Hemoglobin A1c ??? Complete Blood Count and Differential ??? Comprehensive Metabolic Panel (CMP) ??? Vitamin D (25,OH) ??? CK ??? Magnesium ??? Hepatitis C Ab w Reflex to HCV RNA by PCR ??? Hepatitis B Surface Antibody ??? Hepatitis A Total Antibody with Reflex ??? Lipid Profile (Includes Cholesterol, Triglycerides, HDL, LDL) ??? C Reactive Protein: use to detect acute inflammation Discontinued Medications Medications Discontinued During This Visit Medication Reason ??? fluconazole (DIFLUCAN) 150 mg tablet Therapy completed ??? nicotine polacrilex (COMMIT) 4 mg lozenge Therapy completed ??? LORazepam (ATIVAN) 0.5 mg tablet Reorder ??? HYDROcodone-acetaminophen (NORCO) 10-325 mg tablet Reorder ??? LORazepam (ATIVAN) 0.5 mg tablet ??? amLODIPine (NORVASC) 5 mg tablet Order modification Subjective HPI Allie is a/an 42 y.o. female who presents for evaluation of chronic pain and anxiety, panic, and agoraphobia. 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 Shortly thereafter patient had a stroke which was determined to be due to smoking, drinking excessive amounts of caffeine containing products including an energy drink which may have contained ephedrine but will need to review these records Denies any major trauma preceding the stroke and denies being on any hormonal contraception She notes a history of unusual reactions to minor injuries such as bumping her elbow on something and then having swelling and pain in her shoulder joints She has had persistently elevated inflammatory markers but was seen by rheumatology and was determined to not have an inflammatory or seronegative arthritis Reports a history of IBS with diarrhea - started when she had her gallbladder removed and since then has diarrhea and fecal incontinence Wonders if there is anything she can do Will start colestipol 2 grams daily and titrate up as needed Was started on amlodipine for headaches by her report - did not think she was started on amlodipinefor High blood pressures States that she has developed a lot of swelling in her legs since she was started on the amlodipine Will decrease the tablet to just 1/2 tablet for a week and then discontinue it Will plan to start lisinopril 2.5 mg instead given her history of prediabetes - but will await lab results Obtaining labs today to determine whether there is any underlying disease process than needs to be addressed or that might be a factor in her pain and anxiety Discussed the safety issue with 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 States Dr Angulo tried to change the medication at one point but her insurance would not cover the medication he wanted to try Will check and see what was tried and switch to another medication For now she will continue on her current dose She does states she has titrated up over time. Prior to the stroke she was never on medications for anxiety and depression Past immunizations, medical history, surgical history, allergies, and medications all reviewed. This information was modified in the electronic health record as indicated. Problem List Patient Active Problem List Diagnosis Date Noted ??? Chronic pain syndrome 07/02/2023 ??? Postcholecystectomy diarrhea 07/02/2023 ??? Elevated C-reactive protein (CRP) 07/02/2023 ??? Gastroesophageal reflux disease 07/02/2023 ??? Chronic prescription opiate use 06/16/2022 ??? Generalized anxiety disorder with panic attacks 12/02/2021 ??? Cigarette nicotine dependence without complication 04/17/2020 ??? Carpal tunnel syndrome of right wrist 09/05/2019 ??? Prediabetes 09/05/2019 ??? Irritable bowel syndrome with diarrhea 09/05/2019 ??? History of kidney stones 09/05/2019 ??? Class 3 severe obesity due to excess calories with serious comorbidity and body mass index (BMI) of 50.0 to 59.9 in adult (HCC-CMS) 09/05/2019 ??? Connective tissue disease overlap syndrome (HCC-CMS) 09/05/2019 ??? History of CVA (cerebrovascular accident) 08/11/2019 08/11/2019: MRI of the brain shows a small infarction near in left midbrain tegmentum. There may also be a recent infarction in the medial left cerebral peduncle but this seems artifactual on the MRI and she hasno weakness. The initial CT here was suspected [...] has improved lateral gaze with left eye. Medications Current Outpatient Medications: ??? amLODIPine (NORVASC) 5 mg tablet, Take 0.5 Tablets by mouth daily. For 1 week then stop, Disp: 90 Tablet, Rfl: 4 ??? aspirin 81 mg EC tablet, TAKE ONE TABLET BY MOUTH ONE TIME DAILY, Disp: 100 Tablet, Rfl: 4 ??? atorvastatin (LIPITOR) 40 mg tablet, TAKE ONE TABLET BY MOUTH ONE TIME DAILY, Disp: 90 Tablet, Rfl: 3 ??? colestipoL (COLESTID) 1 gram tablet, Take 2 Tablets by mouth daily., Disp: 60 Tablet, Rfl: 2 ??? diclofenac (VOLTAREN) 75 mg EC tablet, Take 1 Tablet by mouth 2 times daily., Disp: 180 Tablet,Rfl: 3 ??? FLUoxetine (PROZAC) 40 mg capsule, TAKE ONE CAPSULE BY MOUTH ONE TIME DAILY, Disp: 90 Capsule, Rfl: 3 ??? HYDROcodone-acetaminophen (NORCO) 10-325 mg tablet, Take 1 Tablet by mouth every 12 hours as needed for up to 28 days for Pain (only as needed for severe pain). Daily Max: 2 Tablets, Disp: 56 Tablet, Rfl: 0 ??? LORazepam (ATIVAN) 0.5 mg tablet, Take 1 Tablet by mouth 2 times daily as needed for up to 28 days for Anxiety (only if needed for severe anxiety). Daily Max: 1 mg, Disp: 56 Tablet, Rfl: 0 ??? methocarbamoL (ROBAXIN) 750 mg tablet, Take 1 Tablet by mouth every 6 hours as needed for Muscle Spasms., Disp: 20 Tablet, Rfl: 0 ??? naloxone (NARCAN) 4 mg/actuation nasal spray, 0.1 mL by nasal route as needed for Opioid Reversal., Disp: 1 Each, Rfl: 1 ??? nystatin (MYCOSTATIN) powder, APPLY 2 TIMES DAILY to affected areas under breasts and groin folds, Disp: 30 g, Rfl: 3 ??? omeprazole (PRILOSEC) 20 mg capsule, TAKE ONE CAPSULE BY MOUTH ONE TIME DAILY, Disp: 90 Capsule, Rfl: 3 Allergies Allergies Allergen Reactions ??? Augmentin [Amoxicillin-Pot Clavulanate] GI upset ??? Oxycodone Itching Review of Systems Review of Systems As per HPI Objective Blood pressure 118/78, pulse 93, resp. rate 18, weight (!) 122.2 kg (269 lb 8 oz), SpO2 98 %. Physical Exam Vitals and nursing note reviewed. Exam conducted with a waiter present (BF present). Constitutional: General: She is not in acute distress. Appearance: Normal appearance. She is not ill-appearing. HENT: Head: Normocephalic and atraumatic. Eyes: Conjunctiva/sclera: Conjunctivae normal. Pupils: Pupils are equal, round, and reactive to light. Neurological: Mental Status: She is alert. Psychiatric: Mood and Affect: Mood normal. Behavior: Behavior normal. Thought Content: Thought content normal. Judgment: Judgment normal. Electronically signed by Mia Alexander DO 07/02/23 19:42 [place], [place] * Dannielle Novak LPN - 07/02/2023 1515 EDT Venipuncture Procedure Performed By: DANNIELLE NOVAK LPN Site of Collection: Left Antecubital and Right Antecubital Patient Response: Patient Tolerated Well Number of Attempts: 2 Tubes Drawn: SST x2, lavender Ordering Provider: Catherine A label with patient's name and date of was verified to include correct information and placed on lab tubes in the presence of the patient. DCD applied to venipuncture site. documented in this encounter Plan of Treatment Not on file documented as of this encounter Procedures Procedure Name Priority Date/Time Associated Diagnosis Comments VITAMIN D (25,OH) Routine 07/02/2023 16: 43 EDT Vitamin D deficiency HEPATITIS C AB W REFLEX TO HCV RNA BY PCR Routine 07/02/2023 16:43 EDT Encounter for hepatitis C screening test for low risk patient HEPATITIS A TOTAL ANTIBODY W REFLEX Routine 07/02/2023 16:43 EDT Encounter for screening for viral disease HEPATITIS B SURFACE ANTIBODY Routine 07/02/2023 16:43 EDT Need for hepatitis B screening test COMPLETE BLOOD COUNT AND DIFFERENTIAL Routine 07/02/2023 16:43 EDT Essential hypertension spectroscopist (current) use of non-steroidal anti-inflammatories (nsaid) C REACTIVE PROTEIN Routine 07/02/2023 16 :43 EDT Elevated C-reactive protein (CRP) TSH Routine 07/02/2023 16:43 EDT Chronic pain syndrome Generalized anxiety disorder with panic attacks Encounter for long-term current use of medication T4 FREE Routine 07/02/2023 16:43 EDT Generalized anxiety disorder with panic attacks Essential hypertension spectroscopist (current) use of non-steroidal anti-inflammatories (nsaid) MAGNESIUM Routine 07/02/2023 16:43 EDT Essential hypertension Encounter for long-term current use of medication HEMOGLOBIN A1C Routine 07/02/2023 16:43 EDT Encounter for long-term current use of medication Hyperglycemia CK Routine 07/02/2023 16:43 EDT Chronic pain syndrome spectroscopist (current) use of non-steroidal anti-inflammatories (nsaid) LIPID PROFILE (INCLUDES CHOLESTEROL, TRIGLYCERIDES, HDL, LDL) Routine 07/02/2023 16:43 EDT Cigarette nicotine dependence without complication Encounter for long-term current use of medication Hyperglycemia COMPREHENSIVE METABOLIC PANEL (CMP) Routine 07/02/2023 16:43 EDT Essential hypertension Gastroesophageal reflux disease, unspecified whether esophagitis present Encounter for long-term current use of medication OPIOIDS AND METABOLITES CONFIRMATION PANEL Routine 07/02/2023 15:32 EDT Long-term current use of benzodiazepine Encounter for long-term use of opiate analgesic ALCOHOL METABOLITE CONFIRMATION PANEL Routine 07/02/2023 15:32 EDT Long-term current use of benzodiazepine Encounter for long-term use of opiate analgesic DRUG SCREEN 12, URINE Routine 07/02/2023 15:32 EDT Long-term current use of benzodiazepine Encounter for long-term use of opiate analgesic BENZODIAZEPINE PANEL CONFIRMATION Routine 07/02/2023 15:32 EDT Long-term current use of benzodiazepine Encounter for long-term use of opiate analgesic documented in this encounter Results * (ABNORMAL) C REACTIVE PROTEIN (07/02/2023 16:43 EDT) Pathologist [facility] C-Reactive Protein 24.1(H) <10.0 mg/L 07/02/2023 18:27 EDT [facility] Blood VENOUS BLOOD / Unknown Venipuncture / Unknown 07/02/2023 16:43 EDT 07/02/2023 16:45 EDT Mia Alexander DO CHEMISTRY & BLOO D GAS ORDERABLES [facility] [address] [place] [address] * (ABNORMAL) LIPID PROFILE (INCLUDES CHOLESTEROL, TRIGLYCERIDES, HDL, LDL) (07/02/2023 16:43 EDT) [facility] Cholesterol 164 <200 mg/dL 07/02/2023 18:27 [facility] Comment:Note that therapeuti c goals will differ between patients based on cardiac risk factors and current medical therapy. HDL 45(L) >=50 mg/dl 07/02/2023 18:27 [facility] Comment:Note that therapeuti c goals will differ between patients based on cardiac risk factors and current medical therapy. LDL, Calculated 65 <160 mg/dL 18:27 [facility] Comment:Note that therapeuti c goals will differ between patients based on cardiac risk factors and current medical therapy. Triglyceride 270(H) <=150 mg/dL 07/02/2023 18:27 [facility] Comment:Note that therapeuti c goals will differ between patients based on cardiac risk factors and current medical therapy. Chol/HDL Ratio 3.6 See Note 07/02/2023 18:27 [facility] Comment: NOTE: Desirable Ratio = <4.1 Patient At Risk Ratio = >5.0(Males) ?>6.0(Females) Non HDL Cholesterol 119 <160 mg/dL 07/02/2023 18:27 [facility] Comment:Note that therapeuti c goals will differ between patients based on cardiac risk factors and current medical therapy. Blood VENOUS BLOOD / Unknown Venipuncture / Unknown 07/02/2023 16:43 EDT 07/02/2023 16:45 EDT Mia Alexander DO CHEMISTRY & BLOO D GAS ORDERABLES Performing Organization Address [facility] Co de Phone Number [facility] [address] [place] [address] * HEPATITIS A TOTAL ANTIBODY W REFLEX (07/02/2023 16:43 EDT) Hepatitis A Antibody, Total Negative Negative 07/02/2023 19:12 EDT [facility] Blood VENOUS BLOOD / Unknown Venipuncture / Unknown 07/02/2023 16:43 EDT 07/02/2023 16:45 EDT Narrative [facility] - 07/02/2023 19:12 EDT The result of this assay can be falsely elevated (Positive) due to the consumption of Biotin. Mia Alexander DO CHEMISTRY & BLOO D GAS ORDERABLES Performing Organization Address [facility] de Phone Number [facility] [address] [place] [address] * HEPATITIS B SURFACE ANTIBODY (07/02/2023 16:43 EDT) Hep B Surface Ab, Quantitative 0.0 See Note mIU/mL 07/02/2023 19:12 EDT [facility] Comment: Clinical Interpretation of Immune Status: Patient is considered to be not immune to infection with HBV. Reference Range for Hep B Surface Ab, Quant: Positive: ?>= 12.00 mIU/mL Negative: ?< 5.00 mIU/mL Indeterminate: ??>= 5.00 mIU/mL and < 12.00 mIU/mL Blood VENOUS BLOOD / Unknown Venipuncture / Unknown 07/02/2023 16:43 EDT 07/02/2023 16:45 EDT Mia Emily Catherine DO CHEMISTRY & BLOO D GAS ORDERABLES Performing Organization Address City/[facility]/ZIP Co de Phone Number [facility] [address] [place] [address] * HEPATITIS C AB W REFLEX TO HCV RNA BY PCR (07/02/2023 16:43 EDT) Pathologist [facility] Hep C Antibody Negative Negative 07/02/2023 19:12 EDT [facility] Blood VENOUS BLOOD / Unknown Venipuncture / Unknown 07/02/2023 16:43 EDT 07/02/2023 16:45 EDT Mia Alexander DO CHEMISTRY & BLOO D GAS ORDERABLES Performing Organization Address [facility] Co de Phone Number [facility] [address] [place] [address] * MAGNESIUM (07/02/2023 16:43 EDT) [facility] Magnesium 2.0 1.7 - 2.8 mg/dL 07/02/2023 18:27 EDT [facility] Blood VENOUS BLOOD / Unknown Venipuncture / Unknown 07/02/2023 16:43 EDT 07/02/2023 16:45 EDT Miahome Alexander DO CHEMISTRY & BLOO D GAS ORDERABLES Performing Organization Address [facility]/ZIP Co de Phone Number [facility] [address] [place] [phone] * CK (07/02/2023 16:43 EDT) Pathologist [facility] CK 66 30 - 135 U/L 07/02/2023 18:27 EDT [facility] Blood VENOUS BLOOD / Unknown Venipuncture / Unknown 07/02/2023 16:43 EDT 07/02/2023 16:45 EDT Mia Alexander DO CHEMISTRY & BLOO D GAS ORDERABLES Performing Organization Address City/[facility]/ZIP Co de Phone Number [facility] [address] [place] [phone] * (ABNORMAL) VITAMIN D (25,OH) (07/02/2023 16:43 EDT) Pathologist [facility] 25OH Vitamin D Tot 25(L) 30 - 100 ng/mL 07/02/2023 18:46 [facility] Blood VENOUS BLOOD / Unknown Venipuncture / Unknown 07/02/2023 16:43 EDT 07/02/2023 16:45 EDT Mia Alexander DO CHEMISTRY & BLOO D GAS ORDERABLES [facility] [address] [place] [address] * (ABNORMAL) COMPREHENSIVE METABOLIC PANEL (CMP) (07/02/2023 16:43 EDT) [facility] Sodium 139 136 - 145 mmol/L 07/02/2023 18:27 [facility] Potassium 4.2 3.5 - 5.0 mmol/L 07/02/2023 18:27 [facility] Chloride 100 96 - 110 mmol/L 07/02/2023 18:27 [facility] CO2 Total 26 22 - 32 mmol/L 07/02/2023 18:27 [facility] Glucose 110(H) 70 - 99 mg/dl 07/02/2023 18:27 [facility] BUN 22 10 - 26 mg/dL 07/02/2023 18:27 [facility] Creatinine 0.64 0.52 - 1.04 mg/dL 07/02/2023 18:27 [facility] eGFR 112 >60 mL/min/1.7 3m2 07/02/2023 18:27 [facility] Total Protein 7.7 6.3 - 8.2 g/dL 07/02/2023 18:27 [facility] Albumin 4.7 3.4 - 4.9 g/dL 07/02/2023 18:27 [facility] Alkaline Phosphatase 133(H) 38 - 126 U/L 07/02/2023 18:27 [facility] AST 35 15 - 46 U/L 07/02/2023 18:27 [facility] ALT 42(H) <35 U/L 07/02/2023 18:27 [facility] Bilirubin, Total 0.5 <1.4 mg/dL 07/02/20 18:27 [facility] Calcium 9.6 8.5 - 10.5 mg/dL 07/02/2023 18:27 [facility] Albumin/Globulin Ratio 1.6 1.0 - 2.5 g/dL 07/02/2023 18:27 [facility] Anion Gap 13 5 - 14 mmol/L 07/02/2023 18:27 [facility] Blood VENOUS BLOOD / Unknown Venipuncture / Unknown 07/02/2023 16:43 EDT 07/02/2023 16:45 EDT Mia Alexander DO CHEMISTRY & BLOO D GAS ORDERABLES Performing Organization Address City/State/[facility] Co de Phone Number [facility] [address] [place] [address] * (ABNORMAL) COMPLETE BLOOD COUNT AND DIFFERENTIAL (07/02/2023 16:43 EDT) WBC 12.75(H) 4.00 - 12.40 K/cmm 07/02/2023 18:14 [facility] RBC 5.08(H) 3.86 - 5.04 M/cmm 07/02/2023 18:14 [facility] Hemoglobin 13.5 11.6 - 15.2 g/dL 07/02/2023 18:14 [facility] HCT 41.8 34.9 - 44.4 % 07/02/2023 18:14 [facility] MCV 82 81 - 98 fL 07/02/2023 18:14 [facility] MCH 26.6(L) 26.7 - 33.3 pg 07/02/2023 18:14 [facility] MCHC 32.3 32.1 - 35.9 g/dL 07/02/2023 18:14 [facility] RDW-CV 15.6(H) <14.7 % 07/02/2023 18:14 [facility] RDW-SD 46.8 <50.4 fl 07/02/2023 18:14 [facility] PLT 425(H) 141 - 377 K/cmm 07/02/2023 18:14 [facility] MPV 9.9 9.5 - 12.7 fL 07/02/2023 18:14 [facility] % Neutrophils 65.6 % 07/02/2023 18:14 [facility] % Lymphocytes 27.1 % 07/02/2023 18:14 [facility] % Monocytes 5.3 % 07/02/2023 18:14 [facility] % Eosinophils 1.0 % 07/02/2023 18:14 [facility] % Basophils 0.5 % 07/02/2023 18:14 [facility] % Immature Grans 0.5 % 07/02/20 18:14 [facility] Absolute Neutrophils 8.36 2.20 - 8.85 K/cmm 07/02/2023 18:14 [facility] Absolute Lymphocytes 3.46(H) 1.09 - 3.30 K/cmm 07/02/2023 18:14 [facility] Absolute Monocytes 0.67 0.10 - 0.80 K/cmm 07/02/2023 18:14 [facility] Absolute Eosinophils 0.13 0.03 - 0.61 K/cmm 07/02/2023 18:14 [facility] ABS Basophils 0.06 0.01 - 0.11 K/cmm 07/02/2023 18:14 [facility] Absolute Immature Grans 0.07(H) 0.00 - 0.06 K/cmm 07/02/2023 18:14 [facility] Type of Differential: Auto 07/02/2023 18:14 EDT [facility] Blood VENOUS BLOOD / Unknown Venipuncture / Unknown 07/02/2023 16:43 EDT 07/02/2023 16:45 EDT Mia Alexander DO PACKAGES & DNA P ROBE ORDERABLES Performing Organization Address [facility] de Phone Number [facility] [address] [place] [address] * (ABNORMAL) HEMOGLOBIN A1C (07/02/2023 16:43 EDT) Hemoglobin A1c 7.8(H) <5.7 % 07/02/2023 21:05 EDT [facility] Comment: Glycemic Status References: Normal: ??<5.7% Pre-Diabetes: ??5.7% - 6.4% Diagnostic of Diabetes: ??> or = 6.5% (if confirmed) Est Avg Glucose 177 mg/dL 21:05 EDT [facility] Comment:The eAG represents t he A1c result expressed as average glucose in mg/dL. Blood VENOUS BLOOD / Unknown Venipuncture / Unknown 07/02/2023 16:43 EDT 07/02/2023 16:45 EDT Mia Alexander DO CHEMISTRY & BLOO D GAS ORDERABLES Performing Organization Address [facility] Co de Phone Number [facility] [address] [place] [address] * TSH (07/02/2023 16:43 EDT) TSH 1.77 0.47 - 4.68 mIU/L 07/02/2023 18:59 EDT [facility] Blood VENOUS BLOOD / Unknown Venipuncture / Unknown 07/02/2023 16:43 EDT 07/02/2023 16:45 EDT Narrative [facility] - 07/02/2023 18:59 EDT The results of this assay can be falsely lowered due to the consumption of Biotin. Mia Alexander DO CHEMISTRY & BLOO D GAS ORDERABLES Performing Organization Address City/[facility]/ZIP Co de Phone Number [facility] [address] [place] [address] * T4 FREE (07/02/2023 16:43 EDT) T4, Free 1.4 0.8 - 2.2 ng/dL 07/02/2023 18:46 EDT [facility] Blood VENOUS BLOOD / Unknown Venipuncture / Unknown 07/02/2023 16:43 EDT 07/02/2023 16:45 EDT Mia Alexander DO CHEMISTRY & BLOO D GAS ORDERABLES Performing Organization Address [facility] Co de Phone Number [facility] [address] [place] [address] * (ABNORMAL) OPIOIDS AND METABOLITES CONFIRMATION PANEL (07/02/2023 15:32 EDT) Pathologist [facility] Codeine Confirmation Negative <100 ng/mL 07/06/2023 10:27 EDT [facility] Morphine Confirmation Negative <100 ng/mL 07/06/2023 10:27 EDT [facility] Hydrocodone Confirmation >1000(A) <50 ng/mL 07/06/2023 10:27 EDT [facility] Hydromorphone Confirmation 72(A) <50 ng/mL 07/06/2023 10:27 EDT [facility] Oxycodone Confirmation Negative <50 ng/mL 07/06/2023 10:27 EDT [facility] Oxymorphone Confirmation Negative <50 ng/mL 07/06/2023 10:27 EDT [facility] Dihydrocodeine Confirmation >1000(A) <50 ng/mL 07/06/2023 10:27 EDT [facility] Norhydrocodone Confirmation >1000(A) <50 ng/mL 07/06/2023 10:27 EDT [facility] Norhydromorphone Confirmation Negative <50 ng/mL 07/06/2023 10:27 EDT [facility] Noroxycodone Confirmation Negative <50 ng/mL 07/06/2023 10:27 EDT [facility] Noroxymorphone Confirmation Negative <50 ng/mL 07/06/2023 10:27 EDT [facility] Urine URINE / Unknown Urine Collect / Unknown 07/02/2023 15:32 EDT 07/02/2023 15:32 EDT Narrative [facility] - 07/06/2023 10:27 EDT Testing performed by: [facility] [address] [place] [address], [address], [place] [address] Supervisor Locomotive: Janes Gutierrez MD; CLIA # [id number] Mia Alexander DO GEN LAB UNIT COL LECT ORDERABLES [facility] [address] [place] [address], [facility] [address] [place] [address], [facility] [phone] * (ABNORMAL) DRUG SCREEN 12, URINE (07/02/2023 15:32 EDT) Amphetamine Screen, Ur Negative Negative, Negative Screen 07/02/2023 18:29 EDT [facility] Barbiturates Screen, Ur Negative Negative, Negative Screen 07/02/2023 18:29 EDT [facility] Benzodiazepine Screen, Ur Presumptive Positive, interpret with caution.(A) Negative, Negative Screen 07/02/2023 18:29 EDT [facility] Cocaine Metabolites Screen, Ur Negative Negative, Negative Screen 07/02/2023 18:29 EDT [facility] Methamphetamine Screen, Ur Negative Negative, Negative Screen 07/02/2023 18:29 EDT [facility] Methadone Screen, Ur Negative Negative, Negative Screen 07/02/2023 18:29 EDT [facility] Opiates Screen, Ur Presumptive Positive, interpret with caution.(A) Negative, Negative Screen 07/02/2023 18:29 EDT [facility] Oxycodone Screen, Ur Negative Negative, Negative Screen 07/02/2023 18:29 EDT [facility] Phencyclidine Screen, Ur Negative Negative Screen, Negative 07/02/2023 18:29 EDT [facility] Cannabinoids Screen, Ur Negative Negative, Negative Screen 07/02/2023 18:29 [facility] Buprenorphine and Metabolites Screen, Ur Negative Negative, Negative Screen 07/02/2023 18:29 EDT [facility] Tricyclics Screen, Ur Negative Negative Screen, Negative 07/02/2023 18:29 T [facility] Urine URINE / Unknown Urine Collect / Unknown 07/02/2023 15:32 EDT 07/02/2023 15:[address] [facility] - 07/02/2023 18:29 EDT Drug Class Cutoff Concentrations: Amphetamines - 500 ng/mL Barbiturates - 200 ng/mL Benzodiazepines - 150 ng/mL Cocaine - 150 ng/mL Methamphetamine - 500 ng/mL Methadone - 200 ng/mL Opiates - 100 ng/mL Oxycodone - 100 ng/mL Phencyclidine (PCP) - 25 ng/mL Tetrahydrocannabinol (THC) - 50 ng/mL Propoxyphene - 300 ng/mL Buprenorphine and Metabolites - 10 ng/mL Tricyclic Antidepressants - 300 ng/mL This is a screening assay only, intended for use in clinical monitoring or management of patients. False positive or false negative results can occur. ??If confirmation testing is needed, please place order as Add-On order in Epic. ??Specimens are retained in the laboratory for 7 days. Mia Alexander DO GEN LAB UNIT COL LECT ORDERABLES [facility] [address] [place] [address] * (ABNORMAL) BENZODIAZEPINE PANEL CONFIRMATION (07/02/2023 15:32 EDT) 7-Aminoclonazepam Negative <50 ng/mL 023 10:27 EDT [facility] Lorazepam 97(A) <50 ng/mL 07/06/2023 10:27 EDT [facility] Midazolam Negative <50 ng/mL 07/06/2023 10:27 EDT [facility] Nordiazepam Negative <50 ng/mL 07/06/2023 10:27 EDT [facility] Temazepam Negative <50 ng/mL 07/06/2023 10:27 EDT [facility] Oxazepam Negative <50 ng/mL 07/06/2023 10:27 EDT [facility] Alprazolam Negative <50 ng/mL 07/06/2023 10:27 EDT [facility] Hydroxyalprazolam Negative <50 ng/mL 023 10:27 EDT [facility] Diazepam Negative <50 ng/mL 07/06/2023 10:27 EDT [facility] Urine URINE / Unknown Urine Collect / Unknown 07/02/2023 15:32 EDT 07/02/2023 15:32 EDT Narrative [facility] - 07/06/2023 10:27 EDT Testing performed by: [facility] [address] [place] [address], [facility] [address] [address] Supervisor Locomotive: Janes Gutierrez MD; CLIA # [id number] Mia Alexander DO URINALYSIS ORDER EVELIA [facility] [address] [place] [address], [facility] [phone] * ALCOHOL METABOLITE CONFIRMATION PANEL (07/02/2023 15:32 EDT) Pathologist [facility] Ethyl Glucuronide (EtG) Confirmation Negative <1000 ng/mL 07/06/2023 10:27 EDT [facility] Ethyl Sulfate (EtS) Confirmation Negative <200 ng/mL 07/06/2023 10:27 EDT [facility] Urine URINE / Unknown Urine Collect / Unknown 07/02/2023 15:32 EDT 07/02/2023 15:32 EDT Narrative [facility] - 07/06/2023 10:27 EDT Testing performed by: [facility] [address], [address], [place] [address] Supervisor Locomotive: Janes Gutierrez MD; CLIA # [id number] Mia Alexander DO CHEMISTRY & BLOO D GAS ORDERABLES [facility] [address], [address] [place] [address], [facility] [phone] documented in this encounter Visit Diagnoses Diagnosis Chronic pain syndrome- Primary Cigarette nicotine dependence without complication Tobacco use disorder Generalized anxiety disorder with panic attacks Essential hypertension Unspecified essential hypertension Benzodiazepine dependence, continuous ([facility]) Sedative, hypnotic or anxiolytic dependence, continuous Vitamin D deficiency Unspecified vitamin D deficiency Gastroesophageal reflux disease, unspecified whether esophagitis present Hyperglycemia Other abnormal glucose Class 3 severe obesity due to excess calories with serious comorbidity and body mass index (BMI) of 50.0 to 59.9 in adult ([facility]) Elevated C-reactive protein (CRP) Postcholecystectomy diarrhea Other postoperative functional disorders Long-term current use of benzodiazepine Encounter for long-term use of opiate analgesic Encounter for long-term (current) use of other medications spectroscopist (current) use of non-steroidal anti-inflammatories (nsaid) Encounter for long-term current use of medication Encounter for screening for viral disease Encounter for hepatitis C screening test for low risk patient Need for hepatitis B screening test documented in this encounter Discontinued Medications Medication Sig Discontinue Reason Start Date End Da te fluconazole (DIFLUCAN) 150 mg tablet 1 tab now, one in one week PO Therapy completed 12/22/2022 07/02/2023 nicotine polacrilex (COMMIT) 4 mg lozengeIndications:Ciga rette smoker Place 1 Lozenge inside cheek every hour as needed for Other. Let lozenge dissolve in your mouth. Do not exceed 20 lozenges per day. Therapy completed 03/30/2023 07/02/2023 LORazepam (ATIVAN) 0.5 mg tabletIndications:LIDIA (generalized anxiety disorder) Take 1 Tablet by mouth 2 times daily as needed for Anxiety. Daily Max: 1 mg Reorder 06/07/2023 07/02/2023 HYDROcodone-acetaminoph en (NORCO) 10-325 mg tablet Take 1 Tablet by mouth every 12 hours as needed for up to 7 days for Pain (only as needed for severe pain). Daily Max: 2 Tablets Reorder 06/23/2023 07/02/2023 LORazepam (ATIVAN) 0.5 mg tablet Take 1 Tablet by mouth 2 times daily as needed for up to 28 days for Anxiety (only if needed for severe anxiety). Daily Max: 1 mg 07/02/2023 07/02/2023 amLODIPine (NORVASC) 5 mg tablet Take 1 Tablet by mouth daily. Order modification 11/06/2022 07/02/2023 documented as of this encounter Care Teams Network Technician Relationship Specialty Start Date End Date Mia Alexander DO [address] [place] [address] [phone] PCP - General Family Medicine - Primary Care 01/29/23 documented as of this encounter
--- OUTSIDE RECORDS SUMMARY | 2024-06-16 00:23 | XMS_ITS | Encounter Summary ---
Author Organization [facility] Address [address] [place] [address] Care Team Providers Care Rn Dermatology Name Role Phone Mia Alexander DO Primary Care Provider + Reason for Visit * Reason Onset Date Comments Pharmacy 09/23/2023 Medications Refill 09/23/2023 Pt out of RX - pharmacy needs us to change script base on dosage that they have on hand Encounter Details Date Type Department Care Team (Late st Contact Info) Description 09/23/2023 [facility]ill [facility] [address] [facility], [facility] [address] [place] [address] Mia Alexander, [address] [place] [address] Pharmacy; Medications Refill (Pt out of RX - pharmacy needs us to change script base on dosage that they have on hand) Social History Tobacco Use Types Packs/Day Years [...] Da te HYDROcodone-acetaminophe n (NORCO) 5-325 mg tablet Take 2 Tablets by mouth every 12 hours as needed for up to 28 days for Pain (only as needed for severe pain). Daily Max: 4 Tablets 112 Tablet 09/24/2023 10/19/2023 documented in this encounter Miscellaneous Notes * Telephone Encounter - Tonya Florentino - 09/24/2023 1106 EST Patient notified * Telephone Encounter - Emma Conteh NP - 09/24/2023 0947 EST Done * Telephone Encounter - Smiley Cedeno - 09/24/2023 0927 EST Patient called to check on the status. * Telephone Encounter - Emma Conteh NP - 09/23/2023 1623 EST Yes, could you pls pend? * Telephone Encounter - Deloris Rod - 09/23/2023 1559 EST Pt called to check the status. Pt has been out for a few days and would like a call once sent at her friends house [phone] until 5:00 09/23/23. * Telephone Encounter - Sue Orozco RN - 09/23/2023 1445 EST Controlled Medication Refill Request Med & Dose: hydrocodone/APAP - 10-325 mg Sig verified: 1 tab Q12 hrs PRN pain Pharmacy verified: [facility] [place] Last visit: 07/02/23 Next visit: 09/27/23 CSA: 07/02/23 UDS: 07/02/23 Date Rx Due: 09/22/23 VPMS - Med: hydrocodone/APAP Last picked up: 08/25/23 Quantity: #56 Covering provider- please advise, ok w/ sending in as 2 5mg tabs daily? * Telephone Encounter - Preeti Roberto - 09/23/2023 1445 EST Patient calling to check status of request. This publications writer spoke with nursing who will get this to thecovering provider. Front staff informed pt this will not be processed today. * Telephone Encounter - Deloris Rod - 09/23/2023 1319 EST Pt called to check status - has someone available to picker / packer RX in an hour if ready. * Telephone Encounter - Tonya Florentino - 09/23/2023 0846 EST Patient called advising that the pharmacy has been out of HYDROcodone- acetaminophen (NORCO) 10mg for 4 weeks and no estimate on when they will get any in. Pharmacy told patient that they have 5mg in stock. Pt requesting the script gets changed to 5mg. Has been out of this medication for 3 days and does not feel well documented in this encounter Plan of Treatment [...] Pain (only as needed for severe pain). To be filled on or after 09/22/22 Daily Max: 2 Tablets Dose adjustment 09/22/2023 09/24/2023 documented as of this encounter Care Teams Rn Dermatology Relationship Specialty Start Date End Date Mia Alexander DO [address] [place] [address] [phone] PCP - General Family Medicine - Primary Care 01/29/23 documented as of this encounter
--- OUTSIDE RECORDS SUMMARY | 2024-06-16 00:23 | XMS_ITS | Encounter Summary ---
Author Organization [facility] Address [address] [place] [address] Care Team Providers Care Poultry Killer Name Role Phone Mia Rawls DO Primary Care Provider + Reason for Referral * Consult (Routine/Next Available) - Authorization Not Required Specialty Diagnoses / Procedures Referred By Susanne martínez Referred To Contact Diagnoses Type 2 diabetes mellitus with hyperglycemia, without long-term current use of insulin ([facility]) Class 3 severe obesity due to excess calories with serious comorbidity and body mass index (BMI) of 50.0 to 59.9 in adult ([facility]) Generalized anxiety disorder with panic attacks Mia Rawls DO [address] [facility] [address] [place] [address], [facility] [address] [place] [address] Referral ID Status Reason Start Date Expiration Date Visits Requested Visits Authorized [id number] Authorization Not Required Specialty Services Required 4 1 1 Question Answer Nutrition/chemical educator/Education: Diabetes management/Education, Nutrition, Wellness coaching, Weight loss Comments Also need help with finding a therapist for Allie to work with on her social anxiety Reason for Visit * Reason Comments Chronic Pain Follow-up Type 2 Diabetes Encounter Details Date Type Department Care Team ([facility] st Contact Info) Description 11/18/2023 16:[address] [facility] [address] [facility] [place] [address] Mia Rawls, [address] [place] [address] Type 2 diabetes mellitus with hyperglycemia, without long-term current use of insulin ([facility]) (Primary Dx); Class 3 severe obesity due to excess calories with serious comorbidity and body mass index (BMI) of 50.0 to 59.9 in adult ([facility]); Chronic pain syndrome; Postcholecystectomy diarrhea; Gastroesophageal reflux disease, unspecified whether esophagitis present; Generalized anxiety disorder with panic attacks; Cigarette nicotine dependence without complication; History of CVA (cerebrovascular accident); Encounter for immunization Social History Tobacco Use Types Packs/Day Years Used Date Smoking Tobacco: Every Day Cigarettes 1 32.7 Started: 1991 Smokeless Tobacco: Never Tobacco Cessation:Ready to Q uit: Yes; Counseling Given: No Alcohol Use Standard Drinks/Week Comments Yes [...] Sign Reading Time Taken Comments Blood Pressure 114/74 11/18/2023 1542 EST Pulse 85 11/18/2023 1542 EST Temperature - - Respiratory Rate 16 11/18/2023 1542 EST Oxygen Saturation 97% 11/18/2023 1542 EST Inhaled Oxygen Concentration - - Weight 118.4 kg (261 lb) 11/18/2023 1542 EST Height 149.9 cm (4' 11) 11/18/2023 1542 EST Body Mass Index 52.72 11/18/2023 1542 EST documented in this encounter Ordered Prescriptions Prescription Sig Dispensed Refills Start Date End Da te hydrOXYzine (ATARAX) 10 mg tabletIndications:Genera lized anxiety disorder with panic attacks Take 1 Tablet by mouth every 8 hours as needed for Anxiety. 30 Tablet 11/18/2023 12/13/2023 LORazepam (ATIVAN) 0.5 mg tabletIndications:Chroni c pain syndrome Take 0.5 Tablets by mouth 2 times daily. Daily Max: 0.5 mg 28 Tablet 11/18/2023 11/19/2023 HYDROcodone-acetaminophe n (NORCO) 5-325 mg tabletIndications:Chroni c pain syndrome Take 1 Tablet by mouth every 6 hours as needed for Pain (only as needed for severe pain). Daily Max: 4 Tablets 112 Tablet 11/18/2023 11/19/2023 HYDROcodone-acetaminophe n (NORCO) 5-325 mg tabletIndications:Chroni c pain syndrome Take 2 Tablets by mouth every 12 hours as needed for up to 28 days (only as needed for severe pain). Daily Max: 4 Tablets 112 Tablet 11/18/2023 11/18/2023 HYDROcodone-acetaminophe n (NORCO) 5-325 mg tabletIndications:Chroni c pain syndrome Take 2 Tablets by mouth every 12 hours as needed for up to 28 days (only as needed for severe pain). Daily Max: 4 Tablets 112 Tablet 11/18/2023 11/18/2023 HYDROcodone-acetaminophe n (NORCO) 5-325 mg tabletIndications:Chroni c pain syndrome Take 2 Tablets by mouth every 12 hours as needed for up to 28 days (only as needed for severe pain). Daily Max: 4 Tablets 112 Tablet 11/18/2023 11/18/2023 semaglutide 0.25 mg or 0.5 mg (2 mg/3 mL) pen injectorIndications:Type 2 diabetes mellitus with hyperglycemia, without long-term current use of insulin ([facility]),Class 3 severe obesity due to excess calories with serious comorbidity and body mass index (BMI) of 50.0 to 59.9 in adult ([facility]) Inject 0.25 mg into the skin once a week for 28 days, THEN 0.5 mg once a week for 28 days. 2 Pen 11/18/2023 12/17/2023 documented in this encounter Progress Notes * Mia Rawls, DO - 11/18/2023 1600 EST Images from the original note were not included. Encounter date: 11/18/2023 Chief complaint Chief Complaint Patient presents with Chronic Pain Follow-up Type 2 Diabetes Assessment and Plan Allie is a/an 43 y.o. female with the following identified concerns discussed during this medical encounter: ICD-10-CM ICD-9-CM 1. Type 2 diabetes mellitus with hyperglycemia, without long-term current use of insulin ([facility]) E11.65 250.00 POCT HEMOGLOBIN A1C 790.29 HEPATITIS A VACCINE ADULT (HAVRIX/VAQTA) IM HEPATITIS B VACCINE (HEPLISAV-B) ADULT IM 2 DOSE semaglutide 0.25 mg or 0.5 mg (2 mg/3 mL) pen injector AMB CONS/FOLLOW UP GLOVE BRUSHER, MARKET RESEARCH INTERN AND NUTRITION 2. Class 3 severe obesity due to excess calories with serious comorbidity and body mass index (BMI)of 50.0 to 59.9 in adult ([facility]) E66.01 278.01 semaglutide 0.25 mg or 0.5 mg (2 mg/3 mL) pen injector Z68.43 V85.43 AMB CONS/FOLLOW UP GLOVE BRUSHER, MARKET RESEARCH INTERN AND NUTRITION 3. Chronic pain syndrome G89.4 338.4 HYDROcodone-acetaminophen (NORCO) 5-325 mg tablet LORazepam (ATIVAN) 0.5 mg tablet DISCONTINUED: HYDROcodone-acetaminophen (NORCO) 5-325 mg tablet DISCONTINUED: HYDROcodone-acetaminophen (NORCO) 5-325 mg tablet DISCONTINUED: HYDROcodone-acetaminophen (NORCO) 5-325 mg tablet 4. Postcholecystectomy diarrhea K91.89 564.4 R19.7 5. Gastroesophageal reflux disease, unspecified whether esophagitis present K21.9 530.81 6. Generalized anxiety disorder with panic attacks F41.1 300.02 hydrOXYzine (ATARAX) 10 mg tablet F41.0 300.01 AMB CONS/FOLLOW UP GLOVE BRUSHER, MARKET RESEARCH INTERN AND NUTRITION 7. Cigarette nicotine dependence without complication F17.210 305.1 8. History of CVA (cerebrovascular accident) Z86.73 V12.54 9. Encounter for immunization Z23 V03.89 HEPATITIS A VACCINE ADULT (HAVRIX/VAQTA) IM HEPATITIS B VACCINE (HEPLISAV-B) ADULT IM 2 DOSE Follow-up January 2024 A total of 50 minutes was spent in reviewing medical history, performing examination and evaluation, counseling, ordering and interpreting tests, care coordination, and documenting clinical information on the day of the encounter. Orders Other Orders Placed This Visit Procedures Hepatitis A vaccine adult (HAVRIX/VAQTA) IM Hepatitis B vaccine (HEPLISAV-B) adult IM 2 dose AMB CONS/FOLLOW UP GLOVE BRUSHER, MARKET RESEARCH INTERN AND NUTRITION POCT Hemoglobin A1c Discontinued Medications Medications Discontinued During This Visit Medication Reason amLODIPine (NORVASC) 5 mg tablet Therapy completed HYDROcodone-acetaminophen (NORCO) 5-325 mg tablet Reorder HYDROcodone-acetaminophen (NORCO) 5-325 mg tablet Reorder HYDROcodone-acetaminophen (NORCO) 5-325 mg tablet Reorder HYDROcodone-acetaminophen (NORCO) 5-325 mg tablet Subjective HPI Allie is a/an 43 y.o. female who presents for evaluation of chronic disease She is doing very well - she was diagnosed with Type 2 DM after last visit and was started on metformin ER 500 mg - she has been doing very well - she made some dietary changes and has been more active and remarks that he is very proud of the significant lifestyle changes she has made She initially lost some weight but has regained some of it by her report She does want to wean off the lorazepam and after that will start working on the hydrocodone - Will drop the lorazepam dose from 0.5 mg twice daily as needed to 1 tablet daily Will send in some hydroxyzine for her to use for acute anxiety She was working with a therapist for about 18 months - through [facility] but after a period of time the therapist said she had nothing more to offer an discharged herfrom therapy services While she was in therapy her noted a huge improvement in Allie's ability to do social things - she was leaving the house a lot more and then started to isolate again after being discharged from therapy. Allie states theat she wondered if she did something wrong or said something offensive that caused the therapist to discharge her from care. She would like to resume therapy but would need a referral - I will place a CHT referral to see if we can find a therapist for her to work with on her social anxiety I did not mention this during the visit but will ask Alile if she would like to have a psychiatric consultation with Dr Nicholson so we can get input on whether her fluoxetine is the best choice for heranxiety and depression I do not want to try to make a change without some guidance - and it makes sense to work on weaningoff the lorazepam before making any changes to the fluoxetine She and her did more to their new home and are happy there She would like to continue working on weight loss with additional of a GLP-1 agonist so will send in script for her to start Ozempic She is not immune for Hep A and B and needs the initial vaccines today She is nervous about having the pharmacy give her any injections which is why she did not get her Tdap vaccine She should have Tdap and a pneumonia vaccine She is continuing to have trouble with social anxiety - gets very anxious about leaving the house -tends to perseverate about whether the house is locked or if she left a cigarette burning in the house and will ask her to drive her back to the house to double check the locks or to make sure there isn't a fire She cannot drive because she was having episodes of severe lightheadedness after having a stroke several years ago She did recently have an episode of lightheadedness and fell and hit her chin on the marble countertop in the bathroom but did not seek any medical evaluation She believs that this may be due to elevated blood sugars She has not been taking her blood sugars recently but when she last took her blood sugars they werein the 130-180 range States in the very beginning when she was initially diagnosed her blood sugars were in the 200+ range The couple have made significant changes in eating habits - Allie had cut out drinking soda and significantly reduced intake a sweets [id number] has been making baked good with sugar substitutes rather than sugar - I am happy to hear that Allie has so much support from those around her She expresses a wish to get back to her old self - 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 and to be able to lead a healthier and more fulfillinglife Just seeing her progress in the last 6 months is impressive POC Hba1c in the office today to recheck how she is doing - 6.7% which is a huge improvement compared to the prior Hba1c of 7.6% June 2024 She reports that the medication for the diarrhea has stopped the problems with persistent diarrhea Blood pressure is normal today off amlodipine May need to add a low dose of an ART inhibitor in the future if blood pressure goes up again but she is not having the same trouble with swelling as she was while she was taking the amlodipine Past immunizations, medical history, surgical history, allergies, and medications all reviewed. This information was modified in the electronic health record as indicated. Problem List Patient Active Problem List Diagnosis Date Noted Type 2 diabetes mellitus with hyperglycemia, without long-term current use of insulin ([facility]) 11/18/2023 Chronic pain syndrome 07/02/2023 Postcholecystectomy diarrhea 07/02/2023 Elevated C-reactive protein (CRP) 07/02/2023 Gastroesophageal reflux disease 07/02/2023 Chronic prescription opiate use 06/16/2022 Generalized anxiety disorder with panic attacks 12/02/2021 Cigarette nicotine dependence without complication 04/17/2020 Carpal tunnel syndrome of right wrist 09/05/2019 Irritable bowel syndrome with diarrhea 09/05/2019 History of kidney stones 09/05/2019 Class 3 severe obesity due to excess calories with serious comorbidity and body mass index (BMI) of50.0 to 59.9 in adult ([facility]) 09/05/2019 Connective tissue disease overlap syndrome ([facility]) 09/05/2019 History of CVA (cerebrovascular accident) 08/11/2019 08/11/2019: [...] with left eye. Medications Current Outpatient Medications: aspirin 81 mg EC tablet, TAKE ONE TABLET BY MOUTH ONE TIME DAILY., Disp: 100 Tablet, Rfl: 5 atorvastatin (LIPITOR) 40 mg tablet, TAKE ONE TABLET BY MOUTH ONE TIME DAILY, Disp: 90 Tablet, Rfl:3 blood glucose meter, Brand: One Touch Basic Or per formulary; test blood sugar once daily (new Dx of Diabetes [facility] Hba1c 7.8%), Disp: 1 Each, Rfl: 0 blood glucose test strips, Brand:per formulary; test blood sugar once daily (new Dx of Diabetes [id number] 7.8%), Disp: 100 Each, Rfl: 0 colestipoL [...] sugar once daily (new Dx of Diabetes [facility] Hba1c 7.8%), Disp: 100 Each, Rfl: 0 [...] 28 days., Disp: 2 Pen, Rfl: 0 Allergies Allergies Allergen Reactions Augmentin [Amoxicillin-Pot Clavulanate] GI upset Oxycodone Itching Review of Systems Review of Systems As per HPI Objective Blood pressure 114/74, pulse 85, resp. rate 16, height (!) 149.9 cm (59), weight (!) 118.4 kg (261lb), SpO2 97 %. Physical Exam Vitals reviewed. Exam conducted with a international operations manager present ( also present for visit). Constitutional: General: She is not in acute distress. Appearance: Normal appearance. She is not ill-appearing. HENT: Head: Normocephalic and atraumatic. Eyes: Extraocular Movements: Extraocular movements intact. Conjunctiva/sclera: Conjunctivae normal. Pupils: Pupils are equal, round, and reactive to light. Neurological: Mental Status: She is alert. Psychiatric: Mood and Affect: Mood normal. Behavior: Behavior normal. Thought Content: Thought content normal. Judgment: Judgment normal. Electronically signed by Mia Rawls DO 11/18/23 20:19 [facility] Family Medicine [place], [place] * Debbie Linda LPN - 11/18/2023 1600 EST Verified immunization with López Orozco RN documented in this encounter Miscellaneous Notes * Addendum Note - Mia Rawls DO - 11/18/2023 1600 ESTAddended by: MIA RAWLS on: 11/18/2023 20:19 Modules accepted: Orders documented in this encounter Plan of Treatment Scheduled Referrals Name Type Priority Associated Diagnoses Order Schedule AMB CONS/FOLLOW UP GLOVE BRUSHER, MARKET RESEARCH INTERN AND NUTRITION Outpatient Referral Routine/Next Available Type 2 diabetes mellitus with hyperglycemia, without long-term current use of insulin ([facility]) Class 3 severe obesity due to excess calories with serious comorbidity and body mass index (BMI) of 50.0 to 59.9 in adult ([facility]) Generalized anxiety disorder with panic attacks Expected: 11/25/2023 (Approximate), Expires: 11/17/2024 documented as of this encounter Procedures Procedure Name Priority Date/Time Associated Diagnosis Comments POCT HEMOGLOBIN A1C Routine 11/18/2023 Type 2 diabetes mellitus with hyperglycemia, without long-term current use of insulin ([facility]) documented in this encounter Results * (ABNORMAL) POCT HEMOGLOBIN A1C (11/18/2023) Hemoglobin A1c, POC 6.7(A) 5.7 % [facility] POINT OF CARE Blood CAPILLARY BLOOD / Unknown 11/18/2023 Mia Rawls DO POINT OF CARE TE ST ORDERABLES [facility] POINT OF CARE documented in this encounter Visit Diagnoses Diagnosis Type 2 diabetes mellitus with hyperglycemia, without long-term current use of insulin ([facility])- Primary Class 3 severe obesity due to excess calories with serious comorbidity and body mass index (BMI) of 50.0 to 59.9 in adult ([facility]) Chronic pain syndrome Postcholecystectomy diarrhea Other postoperative functional disorders Gastroesophageal reflux disease, unspecified whether esophagitis present Generalized anxiety disorder with panic attacks Cigarette nicotine dependence without complication Tobacco use disorder History of CVA (cerebrovascular accident) Transient ischemic attack (TIA), and cerebral infarction without residual deficits Encounter for immunization Need for other specified prophylactic vaccination against single bacterial disease documented in this encounter Discontinued Medications Medication Sig Discontinue Reason Start Date End Da te amLODIPine (NORVASC) 5 mg tablet Take 0.5 Tablets by mouth daily. For 1 week then stop Therapy completed 07/02/2023 11/18/2023 HYDROcodone-acetaminophe n (NORCO) 5-325 mg tabletIndications:Chroni c pain syndrome Take 2 Tablets by mouth every 12 hours as needed for up to 28 days (only as needed for severe pain). Daily Max: 4 Tablets Reorder 10/21/2023 11/18/2023 HYDROcodone-acetaminophe n (NORCO) 5-325 mg tabletIndications:Chroni c pain syndrome Take 2 Tablets by mouth every 12 hours as needed for up to 28 days (only as needed for severe pain). Daily Max: 4 Tablets Reorder 11/18/2023 11/18/2023 HYDROcodone-acetaminophe n (NORCO) 5-325 mg tabletIndications:Chroni c pain syndrome Take 2 Tablets by mouth every 12 hours as needed for up to 28 days (only as needed for severe pain). Daily Max: 4 Tablets Reorder 11/18/2023 11/18/2023 HYDROcodone-acetaminophe n (NORCO) 5-325 mg tabletIndications:Chroni c pain syndrome Take 2 Tablets by mouth every 12 hours as needed for up to 28 days (only as needed for severe pain). Daily Max: 4 Tablets 11/18/2023 11/18/2023 documented as of this encounter Orders Immunization/Injection Count Last Ordered Date First Ordered Date HEPATITIS A VACCINE ADULT (H AVRIX/VAQTA) IM 1 11/18/2023 HEPATITIS B VACCINE (HEPLISA V-B) ADULT IM 2 DOSE 1 11/18/2023 documented in this encounter Care Teams Poultry Killer Relationship Specialty Start Date End Date Mia Rawls DO [address] [place] [phone] PCP - General Family Medicine - Primary Care 01/29/23 documented as of this encounter
--- OUTSIDE RECORDS SUMMARY | 2024-06-16 00:23 | XMS_ITS | Encounter Summary ---
Author Organization [facility] Address [address] [place] [address] Care Team Providers Care Sales Representative Groceries Name Role Phone Mia Alexander DO Primary Care Provider + Reason for Visit * Reason Onset Date Comments Diabetes 01/10/2024 Foot Injury 01/10/2024 Encounter Details Date Type Department Care Team (Late st Contact Info) Description 01/10/2024 Telephone [facility] Medicine [facility] [address] [facility] [facility] [facility] [address] [place] [address] Mia Alexander DO [address] [place] [address] Diabetes; Foot Injury Social History Tobacco Use Types Packs/Day Years [...] Telephone Encounter - Sue Orozco RN - 01/10/2024 8494 EDT Spoke w/ pt. No open sores just painful and it is changing the way she is walking. She is unable tocome in next week. Scheduled for 01/16 w/ Dr. Marc. Instructed her to check sore areas frequently. If any skin opening occurs she is to call us immediately or go to [facility]. Pt agrees. * Telephone Encounter - Stewart Giordano - 01/10/2024 9098 EDT Patient called and states that she found out that she is diabetic in June of 2023, states that she has a sore on each foot that she noticed on Wednesday night. They are tender, red, sore, not open.She thinks it is from her shoes, which are five years old about and the [place] are in the same spot on each foot. She will send a picture of her sores to her [facility] for nursing to see. Please advise. documented in this encounter Plan of Treatment Not on file documented as of this encounter Visit Diagnoses Not on filedocumented in this encounter Care Teams Sales Representative Groceries Relationship Specialty Start Date End Date Mia Alexander DO [address] [place] [phone] PCP - General Family Medicine - Primary Care 01/29/23 documented as of this encounter
--- OUTSIDE RECORDS SUMMARY | 2024-06-16 00:23 | XMS_ITS | Encounter Summary ---
Author Organization [facility] Address [address] [place] [address] Care Team Providers Care Data Developer Name Role Phone Mia Alexander Primary Care Provider + Reason for Visit * Reason Comments Medications Refill Encounter Details Date Type Department Care Team (Late st Contact Info) Description 07/22/2023 Refill [facility] Family Medicine [facility] [address] [place] [address] Ayden Angulo MD Medications Refill Social History Tobacco [...] Dispensed Refills Start Date End Da te omeprazole (PRILOSEC) 20 mg capsule TAKE ONE CAPSULE BY MOUTH ONE TIME DAILY 90 Capsule 3 07/26/2023 documented in this encounter Miscellaneous Notes * Telephone Encounter - Taty Rodríguez RN - 07/26/2023 1321 EST [facility] MEDICATION REFILL Medication: omeprazole 20mg Medication, dose, directions verified: verified Pharmacy verified: verified Last office visit: 07/02/2023 Next office visit: 09/27/2022 documented in this encounter Plan of Treatment Not on file documented as of this encounter Visit Diagnoses Not on filedocumented in this encounter Discontinued Medications Medication Sig Discontinue Reason Start Date End Da te omeprazole (PRILOSEC) 20 mg capsule TAKE ONE CAPSULE BY MOUTH ONE TIME DAILY 08/04/2022 07/26/2023 documented as of this encounter Care Teams Data Developer Relationship Specialty Start Date End Date Mia Alexander DO [address] [place] [phone] PCP - General Family Medicine - Primary Care 01/29/23 documented as of this encounter
--- OUTSIDE RECORDS SUMMARY | 2024-06-16 00:23 | XMS_ITS | Encounter Summary ---
Author Organization [facility] Address [address] [place] [address] Care Team Providers Care Electrotype Finisher Name Role Phone Mia Alexander DO Primary Care Provider + Reason for Visit * Reason Comments Medications Refill Encounter Details Date Type Department Care Team (Late st Contact Info) Description 01/02/2024 Refill [facility] Family Medicine [address], [facility] 2 [place] [address] Mia Alexander DO [address] [facility] [place] [address] [place] [phone] Medications Refill Social History Tobacco [...] Dispensed Refills Start Date End Da te metFORMIN (GLUCOPHAGE-XR) 500 mg ER tabletIndications:Type 2 diabetes mellitus with hyperglycemia, without long-term current use of insulin (HCC-CMS) Take 1 Tablet by mouth daily with breakfast 90 Tablet 3 01/03/2024 06/05/2024 documented in this encounter Miscellaneous Notes * Telephone Encounter - Steffanie Soler, RN - 01/03/2024 1208 EDT Medication Refill Request Med & dose: metformin 500mg ER Sig Verified: 1 tab QD w/ breakfast Pharm verified: [facility] [place] Last visit: 11/18/23 Next visit: 02/08/24 Rx(s) escribed to pharmacy. documented in this encounter Plan of Treatment Not on file documented as of this encounter Visit Diagnoses Diagnosis Type 2 diabetes mellitus with hyperglycemia, without long-term current use of insulin (HCC-CMS)- Primary documented in this encounter Discontinued Medications Medication Sig Discontinue Reason Start Date End Da te metFORMIN (GLUCOPHAGE-XR) 500 mg ER tabletIndications:Type 2 diabetes mellitus with hyperglycemia, without long-term current use of insulin (HCC-CMS) Take 1 Tablet by mouth daily with breakfast. 07/05/2023 01/03/2024 documented as of this encounter Care Teams Electrotype Finisher Relationship Specialty Start Date End Date Mia Alexander DO [address] [place] [phone] PCP - General Family Medicine - Primary Care 01/29/23 documented as of this encounter
--- OUTSIDE RECORDS SUMMARY | 2024-06-16 00:23 | XMS_ITS | Encounter Summary ---
Author Organization [facility] Address [address] [place] [address] Care Team Providers Care Bicycle Repair Technician Name Role Phone Mia Alexander Primary Care Provider + Reason for Visit * Reason Comments Medications Refill Encounter Details Date Type Department Care Team (Late st Contact Info) Description 08/19/2023 Refill [facility] Family Medicine [facility] [address] [place] [address] [place] [address] Ayden Angulo MD Medications Refill Social History [...] Dispensed Refills Start Date End Da te aspirin 81 mg EC tabletIndications:Cerebro vascular accident (CVA), unspecified mechanism (HCC-CMS) TAKE ONE TABLET BY MOUTH ONE TIME DAILY. 100 Tablet 5 08/20/2023 documented in this encounter Miscellaneous Notes * Telephone Encounter - Kaia Ward RN - 08/20/2023 0928 EST Ov sep 2023 Ov 06/2023 documented in this encounter Plan of Treatment Not on file documented as of this encounter Visit Diagnoses Diagnosis Cerebrovascular accident (CVA), unspecified mechanism (HCC-CMS)- Primary documented in this encounter Discontinued Medications Medication Sig Discontinue Reason Start Date End Da te aspirin 81 mg EC tabletIndications:Cerebro vascular accident (CVA), unspecified mechanism (HCC-CMS) TAKE ONE TABLET BY MOUTH ONE TIME DAILY 08/17/2022 08/20/2023 documented as of this encounter Care Teams Bicycle Repair Technician Relationship Specialty Start Date End Date Mia Alexander DO [address] [place] [phone] PCP - General Family Medicine - Primary Care 01/29/23 documented as of this encounter
--- OUTSIDE RECORDS SUMMARY | 2024-06-16 00:23 | XMS_ITS | Encounter Summary ---
Author Organization [facility] Address [address] [place] [address] Care Team Providers Care Manager Of Creative Services Name Role Phone Mia Alexander DO Primary Care Provider + Reason for Visit * Reason Onset Date Comments Medications Refill 09/15/2023 Encounter Details Date Type Department Care Team (Late st Contact Info) Description 09/15/2023 Refill [facility] Family Medicine [address], [facility] 2 [place] [address] Mia Alexander DO [address] [place] [address] [address] [place] [phone] Medications Refill Social History Tobacco [...] or after 09/22/22 Daily Max: 2 Tablets 56 Tablet 09/22/2023 09/24/2023 documented in this encounter Miscellaneous Notes * Telephone Encounter - Steffanie Soler RN - 09/15/2023 1431 EST Controlled Medication Refill Request Med & Dose: hydrocodone/APAP - 10-325 mg Sig verified: 1 tab Q12 hrs PRN pain Pharmacy verified: [facility] [place] Last visit: 07/02/23 Next visit: 09/27/23 CSA: 07/02/23 UDS: 07/02/23 Date Rx Due: 09/22/23 VPMS - Med: hydrocodone/APAP Last picked up: 08/25/23 Quantity: #56 Pended for 28 days NR, postdated to 09/22/22. documented in this encounter Plan of Treatment [...] severe pain). Daily Max: 2 Tablets Reorder 08/25/2023 09/15/2023 documented as of this encounter Care Teams Manager Of Creative Services Relationship Specialty Start Date End Date Mia Alexander DO [address] [place] [phone] PCP - General Family Medicine - Primary Care 01/29/23 documented as of this encounter
--- OUTSIDE RECORDS SUMMARY | 2024-06-16 00:23 | XMS_ITS | Encounter Summary ---
Author Organization [facility] Address [address] [place] [address] Care Team Providers Care Marine Engineer Cpvec Name Role Phone Mia Alexander Primary Care Provider + Reason for Visit * Reason Onset Date Comments Medications Refill 01/10/2024 Encounter Details Date Type Department Care Team (Late st Contact Info) Description 01/10/2024 Refill [facility] Family Medicine [facility] [address] [facility], [facility] 2 [place] [address] Sue Yates MD [address] [facility] [address] [place] [phone] Medications Refill Social History Tobacco [...] Telephone Encounter - Steffanie Soler RN - 01/12/2024 0957 EDT Controlled Medication Refill Request Med & Dose: hydrocodone-APAP 5-325mg Sig verified: 1 tab Q6hrs PRN pain Pharmacy verified: [facility] [place] Last visit: 11/18/23 Next visit: 02/08/24 CSA: 07/02/23 UDS: 07/02/23 Last rx - VPMS - Last picked up: Next Due: Rx written 12/14/23, postdated to 01/14/24. I do not see that this rx has been dispensed. P/u reflected in VPMS, but no date entered ([place] pharmacy). Pt notified via [employer]. documented in this encounter Plan of Treatment Not on file documented as of this encounter Visit Diagnoses Diagnosis Chronic pain syndrome- Primary documented in this encounter Care Teams Marine Engineer Cpvec Relationship Specialty Start Date End Date Mia Alexander DO [address] [place] [phone] PCP - General Family Medicine - Primary Care 01/29/23 documented as of this encounter
--- OUTSIDE RECORDS SUMMARY | 2024-06-16 00:23 | XMS_ITS | Encounter Summary ---
Author Organization [facility] Address [address] [place] [address] Care Team Providers Care Brand Strategist Name Role Phone Mia Alexander DO Primary Care Provider + Reason for Visit * Reason Onset Date Comments Appointment Related 12/16/2023 Labs Only 12/16/2023 Medications Refill 12/16/2023 Encounter Details Date Type Department Care Team (Late st Contact Info) Description 12/16/2023 Telephone [facility] Family Medicine [address], [facility] 2 [place] [address] Mia Alexander DO [address] [facility] [address] [place] [phone] Appointment Related; Labs Only; Medications Refill Social History Tobacco Use Types [...] skin once a week. 3 mL 1 12/17/2023 03/30/2024 LORazepam (ATIVAN) 0.5 mg tabletIndications:Chroni c pain syndrome Take 0.5 Tablets by mouth 2 times daily. Daily Max: 0.5 mg 14 Tablet 12/17/2023 01/10/2024 semaglutide (OZEMPIC) 0.25 mg or 0.5 mg (2 mg/3 mL) pen injector Inject 0.5 mg into the skin once a week. 3 mL 1 12/17/2023 12/17/2023 LORazepam (ATIVAN) 0.5 mg tabletIndications:Chroni c pain syndrome Take 0.5 Tablets by mouth 2 times daily. Daily Max: 0.5 mg 14 Tablet 12/17/2023 12/17/2023 documented in this encounter Miscellaneous Notes * Telephone Encounter - Sue Kerns DNP - 12/17/2023 1345 EDT [facility] scripts sent Please discard Lorazepam script that was accidentally sent to print * Telephone Encounter - Sue Orozco RN - 12/17/2023 0933 EDT Pended lorazepam w/ 1 refill to get to [facility] apt 02/07. Pended semaglutide 0.5 mg To covering provider * Telephone Encounter - Preeti Roberto - 12/17/2023 0920 EDT Patient reports to be taking 0.25 for last 4 weeks, now should be taking 0.5 * Telephone Encounter - Sue Orozco RN - 12/17/2023 0859 EDT .Controlled Medication Refill Request Medication and dose: LORazepam (ATIVAN) 0.5 mg tablet Verified: Yes Pharmacy verified: Yes Last visit: 11/18/2023 Next visit: 02/08/2024 CSA: UTD UDS: UTD Date prescription due: Today VPMS: Med: LORazepam (ATIVAN) 0.5 mg tablet Date Last Filled: 11/19/23 Quantity: #28 Called pt to inquire if she has moved up to 0.5 mg semaglutide. Front- When pt calls back please inquire what does semaglutide she is taking. * Telephone Encounter - Preeti Roberto - 12/16/2023 1041 EDT Patient calling to confirm apt in January with AW, this automobile service writer informed her AW is no longer a provider with our practice. We rescheduled CPM visit with LINDA in January. Patient reports AW was checking labs, liver enzymes were off last time? She will need refills on Semaglutide & Lorazepam prior to January apt Pt uses [facility] [place], [place] Please advise documented in this encounter Plan of Treatment Not on file documented as of this encounter Visit Diagnoses Diagnosis Chronic pain syndrome documented in this encounter Discontinued Medications Medication Sig Discontinue Reason Start Date End Da te semaglutide 0.25 mg or 0.5 mg (2 mg/3 mL) pen injectorIndications:Type 2 diabetes mellitus with hyperglycemia, without long-term current use of insulin ([facility]),Class 3 severe obesity due to excess calories with serious comorbidity and body mass index (BMI) of 50.0 to 59.9 in adult ([facility]) Inject 0.25 mg into the skin once a week for 28 days, THEN 0.5 mg once a week for 28 days. 11/18/2023 12/17/2023 LORazepam (ATIVAN) 0.5 mg tabletIndications:Chroni c pain syndrome Take 0.5 Tablets by mouth 2 times daily. Daily Max: 0.5 mg Reorder 11/19/2023 12/17/2023 LORazepam (ATIVAN) 0.5 mg tabletIndications:Chroni c pain syndrome Take 0.5 Tablets by mouth 2 times daily. Daily Max: 0.5 mg 12/17/2023 12/17/2023 semaglutide (OZEMPIC) 0.25 mg or 0.5 mg (2 mg/3 mL) pen injector Inject 0.5 mg into the skin once a week. 12/17/2023 12/17/2023 documented as of this encounter Care Teams Brand Strategist Relationship Specialty Start Date End Date Mia Alexander DO [address] [place] [address] [phone] PCP - General Family Medicine - Primary Care 01/29/23 documented as of this encounter
--- OUTSIDE RECORDS SUMMARY | 2024-06-16 00:23 | XMS_ITS | Encounter Summary ---
Author Organization [facility] Address [address] [place] [address] Care Team Providers Care Gl Accountant Name Role Phone Mia Alexander Primary Care Provider + Reason for Visit * Reason Onset Date Comments Medications Refill 10/19/2023 Encounter Details Date Type Department Care Team (Late st Contact Info) Description 10/19/2023 Refill [facility] Family Medicine [facility] [address] [facility], [place] [address] [place] [address] Emma Conteh, ORGAN GRINDER [address] [facility] [address] [place] [phone] Medications Refill Social History Tobacco [...] pain). Daily Max: 4 Tablets 112 Tablet 10/21/2023 11/18/2023 documented in this encounter Miscellaneous Notes * Telephone Encounter - Steffanie Soler RN - 10/21/2023 1003 EST Pt prefers two 5 mg tabs as the pharmacy is more likely to have them. Also, she can just take one if she feels she doesn't need two. OK to renew? * Telephone Encounter - Steffanie Soler RN - 10/20/2023 1205 EST Controlled Medication Refill Request Med & Dose: hydrocodone-APAP 5-325mg Sig verified: 2 tabs Q12 hrs PRN severe pain Pharmacy verified: [facility] [place] Last visit: 07/02/23 Next visit: 11/18/23 CSA: 07/02/23 UDS: 07/02/23 VPMS - Last picked up: 09/24/23, #112 Next Due: 10/22/23 MyChart msg sent to clarify dose. documented in this encounter Plan of [...] severe pain). Daily Max: 4 Tablets Reorder 09/24/2023 10/19/2023 documented as of this encounter Care Teams Gl Accountant Relationship Specialty Start Date End Date Mia Alexander DO [address] [place] [phone] PCP - General Family Medicine - Primary Care 01/29/23 documented as of this encounter
--- OUTSIDE RECORDS SUMMARY | 2024-06-16 00:23 | XMS_ITS | Encounter Summary ---
Author Organization [facility] Address [address] [place] [address] Care Team Providers Care Field Service Representative Name Role Phone Mia Alexander DO Primary Care Provider + Reason for Visit * Reason Onset Date Comments Medications Refill 06/18/2023 Encounter Details Date Type Department Care Team (Late st Contact Info) Description 06/18/2023 Refill [facility] Family Medicine [address], [facility] 2 [place] [address] Mia Alexander DO [address] [place] [address] [address] [place] [phone] Medications Refill Social History Tobacco [...] for severe pain). Daily Max: 2 Tablets 14 Tablet 06/23/2023 07/02/2023 documented in this encounter Miscellaneous Notes * Telephone Encounter - Sue Orozco RN - 06/28/2023 0944 EDT Spoke w/ pt. I scheduled her for an appointment this Monday 07/02 w/ you. I instructed her to bringall of her medications. She understands if she does not come to this appointment she will not be able to get any further refills on her controlled substances. -Are you ok w/ bridging her lorazepam to this appointment? She reports the Lorazepam helps her leave her house. * Telephone Encounter - Mia Alexander DO - 06/24/2023 1422 EDT I am sorry for her situation but I will not continue to prescribe controlled substances without seeing her and without all the appropriate documentation per [place] and state regulations * Telephone Encounter - Kaia Ward RN - 06/24/2023 0816 EDT I talked to patient. She states she had a stroke and cannot drive. Cannot come in today. She has transportation issues. * Telephone Encounter - Mia Alexander DO - 06/23/2023 1707 EDT I requested the pill counts on both the [place] and the Lorazepam when she no showed the appt she hadon 06/02/23 I also put In UDS orders She was to be called in for a same day pill count and UDS before any refills are given Do you know why that was not addressed? As per TE on 06/06 Technically she has to be seen every 3 months so she is in violation of controlled substance agreement by not coming to her appt on 06/02/23 I need to know if anyone every informed her that she needs to come in for same day pill count and UDS? I will only give her 7 days * Telephone Encounter - Deloris Rod - 06/23/2023 1634 EDT Pt is out of [place]. See also 06/06 TE. * Telephone Encounter - Pamela Patton MA - 06/21/2023 1331 EDT Controlled Medication Refill Request Medication and dose: [place] 10-325mg Verified: Yes Pharmacy verified: Yes Last visit: 12/22/2022 Next visit: 07/22/2023 CSA: UTD UDS: UTD Date prescription due: 06/23/23 VPMS: Med: norco Date Last Filled: 05/26/23 Quantity: #56, 28 days TE to nursing-see 06/06/23 TE, pt needs to come in for pill count. * Telephone Encounter - Pamela Patton MA - 06/21/2023 1330 EDTFrom: Allie Small To: Office of Mia Alexander DO Sent: 06/18/2023 20:26 EDT Subject: Medication Renewal Request Refills have been requested for the following medications: HYDROcodone-acetaminophen (NORCO) 10-325 mg tablet [Mia Alexander] Preferred pharmacy: [id number] documented in this encounter Plan of Treatment Not on file documented as of this encounter Visit Diagnoses Not on filedocumented in this encounter Discontinued Medications Medication Sig Discontinue Reason Start Date End Da te HYDROcodone-acetaminophe n (NORCO) 10-325 mg tablet Take 1 Tablet by mouth every 12 hours as needed for Pain (only as needed for severe pain). Daily Max: 2 Tablets Reorder 05/26/2023 06/18/2023 documented as of this encounter Care Teams Field Service Representative Relationship Specialty Start Date End Date Mia Alexander DO [address] [place] [phone] PCP - General Family Medicine - Primary Care 01/29/23 documented as of this encounter
--- OUTSIDE RECORDS SUMMARY | 2024-06-16 00:23 | XMS_ITS | Encounter Summary ---
Author Organization [facility] Address [address] [place] [address] Care Team Providers Care Resource Forester Name Role Phone Mia Alexander DO Primary Care Provider + NicolasJavier byrd RD Unavailable Reason for Visit * Reason Onset Date Comments Medications Refill 08/24/2023 Encounter Details Date Type Department Care Team (Late st Contact Info) Description 08/24/[address] [facility] Family Medicine [address], [facility] 2 [place] [address] Mia Alexander DO [address] [place] [phone] Medications Refill Social History Tobacco Use [...] pain). Daily Max: 2 Tablets 56 Tablet 08/25/2023 09/15/2023 documented in this encounter Miscellaneous Notes * Telephone Encounter - Kaia Ward RN - 08/25/2023 1425 EST vpms filled 07/29 for 56 tabs for 28 days Ov sep 2023 Ov 06/2023 documented in [...] severe pain). Daily Max: 2 Tablets Reorder 2023 08/24/2023 documented as of this encounter Care Teams Resource Forester Relationship Specialty Start Date End Date Mia Alexander DO [address] [place] [place] [phone] PCP - General Family Medicine - Primary Care 01/29/[address] [place] [phone] Swimming Professor (CDE) Diabetes Education 11/29/23 11/29/23 documented as of this encounter
--- OUTSIDE RECORDS SUMMARY | 2024-06-16 00:23 | XMS_ITS | Encounter Summary ---
Author Organization [facility] Address [address] [place] [address] Care Team Providers Care Workforce Planner Name Role Phone Mia Alexander DO Primary Care Provider + NicolasJavier byrd RD Unavailable [phone] Reason for Visit * Reason Onset Date Comments Medications Refill 10/11/2023 Encounter Details Date Type Department Care Team (Late st Contact Info) Description 10/11/[address] [facility] Family Medicine [address], [facility] 2 [place] [address] Mia Alexander DO [address] [place] [phone] Medications Refill Social History Tobacco Use [...] End Da te LORazepam (ATIVAN) 0.5 mg tabletIndications:Genera lized anxiety disorder with panic attacks Take 1 Tablet by mouth 2 times daily as needed for up to 28 days for Anxiety (only if needed for severe anxiety). Daily Max: 1 mg 56 Tablet 10/12/2023 11/09/2023 documented in this encounter Miscellaneous Notes * Telephone Encounter - Steffanie Soler RN - 10/12/2023 1310 EST Controlled Medication Refill Request Med & Dose: lorazepam 0.5 mg Sig verified: 1 tab BID PRN severe anxiety Pharmacy verified: [place], [place] Last visit: 07/02/23 Next visit: 11/18/23 CSA: 07/02/23 UDS: 07/02/23 VPMS - Last picked up: Pick-up date not shown ([place] pharmacy), but was dispensed on 08/27/23. Next Due: now documented in this encounter Plan of Treatment Not on file documented as of this encounter Visit Diagnoses Diagnosis Generalized anxiety disorder with panic attacks documented in this encounter Discontinued Medications Medication Sig Discontinue Reason Start Date End Da te LORazepam (ATIVAN) 0.5 mg tabletIndications:Genera lized anxiety disorder with panic attacks Take 1 Tablet by mouth 2 times daily as needed for up to 28 days for Anxiety (only if needed for severe anxiety). Daily Max: 1 mg Reorder 08/27/2023 10/11/2023 documented as of this encounter Care Teams Workforce Planner Relationship Specialty Start Date End Date Mia Alexander DO [address] [place] [phone] PCP - General Family Medicine - Primary Care 01/29/[address] [place] [address] Supervisor Finishing Room (CDE) Diabetes Education 11/29/23 11/29/23 documented as of this encounter
--- OUTSIDE RECORDS SUMMARY | 2024-06-16 00:23 | XMS_ITS | Encounter Summary ---
Author Organization [facility] Address [address] [place] [address] Care Team Providers Care Brick And Tile Making Machine Operator Name Role Phone Mia Alexander DO Primary Care Provider + Reason for Visit * Reason Onset Date Comments Prior Auth, Medication 11/19/2023 Encounter Details Date Type Department Care Team (Late st Contact Info) Description 11/19/2023 Telephone [facility] Family Medicine [address], [facility] 2 [place] [address] Mia Alexander DO [address] [facility] [address] [place] [phone] Prior Auth, Medication Social History Tobacco Use Types Packs/Day Years [...] Telephone Encounter - Debbie Linda LPN - 11/19/2023 1234 EST Images from the original note were not included. Approved [id number] Prior authorization approved Payer: [employer] PBM Part D [phone] Request Reference Number: [id number]. OZEMPIC INJ 2MG/3ML is approved through 09/19/2024. Your patient may now fill this prescription and it will be covered. Approval Details Authorization number: [id number] Authorized from November 19, 2023 to September 19, 2024 Electronic appeal: Not supported * Telephone Encounter - Debbie Linda LPN - 11/19/2023 0753 EST ePA for Ozempic requested and submitted via [employer] documented in this encounter Plan of Treatment Not on file documented as of this encounter Visit Diagnoses Not on filedocumented in this encounter Care Teams Brick And Tile Making Machine Operator Relationship Specialty Start Date End Date Mia Alexander DO [address] [place] [phone] PCP - General Family Medicine - Primary Care 01/29/23 documented as of this encounter
--- OUTSIDE RECORDS SUMMARY | 2024-06-16 00:23 | XMS_ITS | Encounter Summary ---
Author Organization [facility] Address [address] [place] [address] Care Team Providers Care Binder Operator Name Role Phone Mia Alexander Primary Care Provider + Reason for Visit * Reason Comments Medications Refill Encounter Details Date Type Department Care Team (Late st Contact Info) Description 10/13/2023 Refill [facility] Family Medicine [facility] [address] [place] [address] Aydne Angulo MD Medications Refill Social History [...] Dispensed Refills Start Date End Da te atorvastatin (LIPITOR) 40 mg tablet TAKE ONE TABLET BY MOUTH ONE TIME DAILY 90 Tablet 3 10/13/2023 documented in this encounter Miscellaneous Notes * Telephone Encounter - Steffanie Soler RN - 10/13/2023 1603 EST Medication Refill Request Med & dose: atorvastatin 40 mg Sig Verified: 1 tab QD Pharm verified: [facility] Last visit: 07/02/23 Next visit: 11/18/23 last lipids - 07/02/23 Rx(s) escribed to pharmacy. documented in this encounter Plan of Treatment Not on file documented as of this encounter Visit Diagnoses Not on filedocumented in this encounter Discontinued Medications Medication Sig Discontinue Reason Start Date End Da te atorvastatin (LIPITOR) 40 mg tablet TAKE ONE TABLET BY MOUTH ONE TIME DAILY 10/26/2022 10/13/2023 documented as of this encounter Care Teams Binder Operator Relationship Specialty Start Date End Date Mia Alexander DO [address] [place] [phone] PCP - General Family Medicine - Primary Care 01/29/23 documented as of this encounter
--- OUTSIDE RECORDS SUMMARY | 2024-06-16 00:23 | XMS_ITS | Encounter Summary ---
Author Organization [facility] Address [address] [place] [address] Care Team Providers Care Management And Budget Analyst Name Role Phone Mia Alexander Primary Care Provider + Reason for Visit * Reason Onset Date Comments Medications Refill 06/06/2023 Encounter Details Date Type Department Care Team (Late st Contact Info) Description 06/06/2023 Telephone [facility] Family Medicine [address], [facility] 2 [place] [address] Sue Kerns, [facility] [address] [facility] [address] [place] [address] Medications Refill Social History Tobacco [...] Anxiety. Daily Max: 1 mg 14 Tablet 06/07/2023 07/02/2023 documented in this encounter Miscellaneous Notes * Telephone Encounter - Mia Alexander DO - 06/07/2023 1450 EDT She No Showed or canceled her appt which was scheduled with me last week Last seen in the office 6 months ago Needs to come in for pill count for lorazepam and hydrocodone- acetaminophen and needs UDS before next appt which was rescheduled to 07/21/23 Should be called in to have these done and not scheduled Will place new UDS order * Telephone Encounter - Pamela Patton MA - 06/07/2023 0924 EDT Med was sent in 05/25 for this months supply. Pt has been filling this monthly but it also states it was filled for a 7 day supply so I believe pt would be due for fill but I am unsure. Med was filled 05/25 for #14, 7 days. To PCP please advise. * Telephone Encounter - Pamela Patton MA - 06/07/2023 0817 EDTFrom: Allie Small To: Office of Sue Kerns DNP Sent: 06/06/2023 12:55 EDT Subject: Medication Renewal Request Refills have been requested for the following medications: LORazepam (ATIVAN) 0.5 mg tablet [Sue Kerns] Preferred pharmacy: [id number] documented in this encounter Plan of Treatment Not on file documented as of this encounter Visit Diagnoses Diagnosis Long-term current use of benzodiazepine- Primary LIDIA (generalized anxiety disorder) Generalized anxiety disorder Encounter for long-term use of opiate analgesic Encounter for long-term (current) use of other medications documented in this encounter Discontinued Medications Medication Sig Discontinue Reason Start Date End Da te LORazepam (ATIVAN) 0.5 mg tabletIndications:LIDIA (generalized anxiety disorder) Take 1 Tablet by mouth 2 times daily as needed for Anxiety. Daily Max: 1 mg Reorder 05/25/2023 06/06/2023 documented as of this encounter Care Teams Management And Budget Analyst Relationship Specialty Start Date End Date Mia Alexander DO [address] [phone] PCP - General Family Medicine - Primary Care 01/29/23 documented as of this encounter
--- OUTSIDE RECORDS SUMMARY | 2024-06-16 00:24 | XMS_ITS | Encounter Summary ---
Author Organization [facility] Address [address] [place] [address] Care Team Providers Care Psychotherapist Counselor Name Role Phone Ayden Angulo MD Primary Care Provider Unava ilable Reason for Visit * Reason Onset Date Comments Medications Refill 09/25/2022 Encounter Details Date Type Department Care Team (Late st Contact Info) Description 09/25/2022 Refill [facility] Family Medicine [address], [facility] 2 [place] [address] Wilver Garcias MD [address] [place] [address] [address] [place] [phone] Medications Refill Social History Tobacco [...] nystatin (MYCOSTATIN) powder APPLY 2 TIMES DAILY 30 g 1 09/28/2022 10/01/2022 documented in this encounter Miscellaneous Notes * Telephone Encounter - Daylin Guy RN - 09/30/2022 0804 EST TC- can you resend rx with location? Thank you- * Telephone Encounter - Smiley Cedeno - 09/29/2022 1224 EST Nerissa from [facility] called because she needs to know where nystatin (MYCOSTATIN) powder [[id number]] Is being applied for insurance purposes. * Telephone Encounter - Pamela Patton MA - 09/28/2022 09 EST [facility] MEDICATION REFILL Medication: Nystatin powder Medication, dose, directions verified: apply 2x daily Pharmacy verified: [facility] Last office visit: 06/23/22 Next office visit: 10/16/22 TC-pended per last rx. * Telephone Encounter - Pamela Patton MA - 09/28/2022926 ESTFrom: Allie Small To: Office of Wilver Garcias MD Sent: 09/25/2022 7:02 EST Subject: Medication Renewal Request Refills have been requested for the following medications: nystatin (MYCOSTATIN) powder [Wilver Garcias] Preferred pharmacy: [id number] Medication renewals requested in this message routed separately: methocarbamoL (ROBAXIN) 750 mg tablet [Ayden Angulo] nicotine polacrilex (COMMIT) 4 mg lozenge [Ayden Angulo] documented in this encounter Plan of Treatment Not on file documented as of this encounter Visit Diagnoses Not on filedocumented in this encounter Discontinued Medications Medication Sig Discontinue Reason Start Date End Da te nystatin (MYCOSTATIN) powder APPLY 2 TIMES DAILY Reorder 03/28/2022 09/25/2022 documented as of this encounter Care Teams Psychotherapist Counselor Relationship Specialty Start Date End Date Ayden Angulo MD PCP - General 07/28/19 01/28/23 documented as of this encounter
--- OUTSIDE RECORDS SUMMARY | 2024-06-16 00:24 | XMS_ITS | Encounter Summary ---
Author Organization [facility] Address [address] [place] [address] Care Team Providers Care Waitress Name Role Phone Mia Alexander Primary Care Provider + Reason for Visit * Reason Onset Date Comments Medications Refill 03/26/2023 Encounter Details Date Type Department Care Team (Late st Contact Info) Description 03/26/2023 Refill [facility] Family Medicine [facility] [address] [place], [place] [phone] Ayden Angulo MD Medications Refill Social History [...] Dispensed Refills Start Date End Da te nicotine polacrilex (COMMIT) 4 mg lozengeIndications:Ciga rette smoker Place 1 Lozenge inside cheek every hour as needed for Other. Let lozenge dissolve in your mouth. Do not exceed 20 lozenges per day. 144 Lozenge 3 03/30/2023 07/02/2023 documented in this encounter Miscellaneous Notes * Telephone Encounter - Starr Bro MA - 03/30/20232128 EDT Medication Refill Request Medication and dose: Nicotine polacrilex 4 mg lozenge Verified: Yes Pharmacy verified: Yes Last visit: 12/22/2022 Next visit: 03/26/2023 AW-Pended as last rx. * Telephone Encounter - Starr Bro MA - 03/30/[id number] EDTFrom: Allie Small To: Office of Ayden Angulo MD Sent: 03/26/2023 12:19 EDT Subject: Medication Renewal Request Refills have been requested for the following medications: nicotine polacrilex (COMMIT) 4 mg lozenge [Mia Alexander] Preferred pharmacy: [id number] Medication renewals requested in this message routed separately: LORaze dexter (ATIVAN) 0.5 mg tablet [Lily Murguia] documented in this encounter Plan of Treatment Not on file documented as of this encounter Visit Diagnoses Diagnosis Cigarette smoker- Primary Tobacco use disorder documented in this encounter Discontinued Medications Medication Sig Discontinue Reason Start Date End Da te nicotine polacrilex (COMMIT) 4 mg lozengeIndications:Ciga rette smoker Place 1 Lozenge inside cheek every hour as needed for Other. Let lozenge dissolve in your mouth. Do not exceed 20 lozenges per day Reorder 03/02/2023 03/26/2023 documented as of this encounter Care Teams Waitress Relationship Specialty Start Date End Date Mia Alexander DO [address] [place] [phone] PCP - General Family Medicine - Primary Care 01/29/23 documented as of this encounter
--- OUTSIDE RECORDS SUMMARY | 2024-06-16 00:24 | XMS_ITS | Encounter Summary ---
Author Organization [facility] Address [address] [place] [address] Care Team Providers Care Lye Machine Operator Name Role Phone Ayden Angulo MD Primary Care Provider Mia Mcclendon DO Primary Care Provider + Javier Valenzuela RD Unavailable [phone] Reason for Visit * Reason Onset Date Comments Dental Pain 09/16/2022 Encounter Details Date Type Department Care Team (Late st Contact Info) Description 09/16/2022 Telephone [facility] Family Medicine [facility] [address], [facility] 2 [place], [place] [phone] Ayden Angulo MD Dental Pain Social History Tobacco Use Types Packs/Day [...] Miscellaneous Notes * Telephone Encounter - Sue Yates MD - 09/16/2022 1623 EST Noted, thanks. * Telephone Encounter - Mitali Sena RN - 09/16/2022 1615 EST Pt was notified per RL note and was offered an OV with TC for tomorrow. Pt declined due to transportation. Pt stated she would go to [facility] to be evaluated. FYI to RL * Telephone Encounter - Sue Yates MD - 09/16/2022 1514 EST Not clear to me that this is an infection. If still having trouble, recommend eval. Thanks. * Telephone Encounter - Mitali Sena RN - 09/16/2022 1326 EST [facility] Primary Care [facility] Nurse Triage call note: Situation: Pt was using floss between bottom right molars and poked it (gum) by accident. Gum is now swollen and hot. Molar is hurting to touch. Pain 4-5/10, pt takes [place] and states this is helping with the pain except at night and first thing in the morning. No facial swelling. Background: SXS x couple of days. Dentist can't see pt until October. Assessment: Tooth pain and swelling of gum Recommendation: Pt requesting abx. RL please advise, does pt need to be seen before any treatment? * Telephone Encounter - Preeti Roberto - 09/16/2022 0849 EST Patient reports an infected tooth for a couple days. She asked if she can get abx called into [facility] in [place], [place]? To covering provider. documented in this encounter Plan of Treatment Not on file documented as of this encounter Visit Diagnoses Not on filedocumented in this encounter Care Teams Lye Machine Operator Relationship Specialty Start Date End Date Ayden Angulo MD PCP - General 07/28/19 01/28/23 Mia Alexander DO [address] [phone] PCP - General Family Medicine - Primary Care 01/29/[address] [place] [id number] Electroplater Helper (CDE) Diabetes Education 11/29/23 11/29/23 documented as of this encounter
--- OUTSIDE RECORDS SUMMARY | 2024-06-16 00:24 | XMS_ITS | Encounter Summary ---
Author Organization [facility] Address [address] [place] [address] Care Team Providers Care Novelty Dipper Name Role Phone Ayden Angulo MD Primary Care Provider Unava ilable Reason for Visit * Reason Onset Date Comments Medications Refill 12/02/2022 Encounter Details Date Type Department Care Team (Late st Contact Info) Description 12/02/[address] [facility] Family Medicine [facility] [address] [place] [address] Ayden Angulo MD Medications Refill Social History [...] End Da te LORazepam (ATIVAN) 0.5 mg tablet Take 1 Tablets by mouth up to 2 times daily as needed for up to 30 days for Anxiety. Daily Max 1mg 30 Tablet 12/03/2022 01/12/2023 documented in this encounter Miscellaneous Notes * Telephone Encounter - Pamela Patton MA - 12/03/2022 1013 EDT [facility] CONTROLLED MEDICATION REFILL Medication: Lorazepam 0.5mg Medication, dose, directions verified: 1 tab up to 2x daily PRN for anxiety Pharmacy verified: [facility] Last office visit: 11/06/22(tele) Next office visit: 12/08/22(was cancelled) Prescription due to be filled: yes Last urine drug screen: 02/07/21(overdue) Last VPMS: last filled 10/19/22 for #30, 15 days. Last CSA: 02/07/21(overdue) TC-pended per last rx, pt has no UDS/CSA in last year and has no f/u scheduled. * Telephone Encounter - Pamela Patton MA - 12/03/2022 1012 EDTFrom: Allie Small To: Office of Ayden Angulo MD Sent: 12/02/2022 21:25 EDT Subject: Medication Renewal Request Refills have been requested for the following medications: LORazepam (ATIVAN) 0.5 mg tablet [Ayden Angulo] Preferred pharmacy: [id number] documented in this encounter Plan of Treatment Not on file documented as of this encounter Visit Diagnoses Not on filedocumented in this encounter Discontinued Medications Medication Sig Discontinue Reason Start Date End Da te LORazepam (ATIVAN) 0.5 mg tablet Take 1 Tablets by mouth up to 2 times daily as needed for up to 30 days for Anxiety. Daily Max 1mg Reorder 10/19/2022 12/02/2022 documented as of this encounter Care Teams Novelty Dipper Relationship Specialty Start Date End Date Ayden Angulo MD PCP - General 07/28/19 01/28/23 documented as of this encounter
--- OUTSIDE RECORDS SUMMARY | 2024-06-16 00:24 | XMS_ITS | Encounter Summary ---
Author Organization [facility] Address [address] [place] [address] Care Team Providers Care Exploration Engineer Name Role Phone Mia Alexander Primary Care Provider + Reason for Visit * Reason Onset Date Comments Medications Refill 02/24/2023 NORCO & Loraz [facility] Encounter Details Date Type Department Care Team (Late st Contact Info) Description 02/24/2023 Refill [facility] Family Medicine [facility] [address] [place] [address] Ayden Angulo MD Medications Refill (NORCO & Lorazepam) Social History Tobacco Use Types Packs/Day Years [...] up to 30 days for Anxiety. Daily Max: 1 mg 30 Tablet 02/26/2023 03/26/2023 HYDROcodone-acetaminophe n (NORCO) 10-325 mg tablet Take 1 Tablet by mouth every 6 hours as needed for up to 28 days for Pain. Daily Max: 2 Tablets 56 Tablet 03/02/2023 03/29/2023 documented in this encounter Miscellaneous Notes * Telephone Encounter - Tonya Florentino - 02/26/2023 1415 EDT Reached out to patient, scheduled appt for Sept * Telephone Encounter - Gage Ford MA - 02/26/2023 1354 EDT To PSS, please schedule: F/u CPM, MMI; 45 min OV w/ AW; soonest routine * Telephone Encounter - Gage Ford MA - 02/26/2023 1127 EDT [facility] CONTROLLED MEDICATION REFILL Medication: Hydrocodone-Acet 10-325 mg tab Medication, dose, directions verified: 1 tab PO Q6H PRN Pain. Daily max = 2 tabs Pharmacy verified: [facility] Last office visit: 12/22/22 Next office visit: none; Needs f/u Prescription due to be filled: 03/02/23 Last urine drug screen: 12/22/22 Last VPMS: Last fill 02/02/23 for #56 for 28 days Last CSA: 12/22/22 [facility] CONTROLLED MEDICATION REFILL Medication: Lorazepam 0.5 mg tab Medication, dose, directions verified: 1 tab PO BID PRN Anxiety. Daily max = 1 mg Prescription due to be filled: Due Last VPMS: Last fill 01/28/23 for #30 for 15 days. Pended 1 month supply as pt needs to establish with new PCP. * Telephone Encounter - Stewart Giordano - 02/26/2023 1124 EDT Patient called and states that she needs her Hydrocodone and her Lorazepam sent to the [facility] in [place], [place]. She is almost out of both of these. Please advise documented in this encounter Plan [...] needed for up to 28 days for Pain. Daily Max: 2 Tablets Reorder 02/02/2023 02/24/2023 LORazepam (ATIVAN) 0.5 mg tablet Take 1 Tablets by mouth up to 2 times daily as needed for up to 30 days for Anxiety. Daily Max 1mg Reorder 01/28/2023 02/26/2023 documented as of this encounter Care Teams Exploration Engineer Relationship Specialty Start Date End Date Mia Alexander DO [address] [place] [phone] PCP - General Family Medicine - Primary Care 01/29/23 documented as of this encounter
--- OUTSIDE RECORDS SUMMARY | 2024-06-16 00:24 | XMS_ITS | Encounter Summary ---
Author Organization [facility] Address [address] [place] [address] Care Team Providers Care Parish Worker Name Role Phone Ayden Angulo MD Primary Care Provider Unava ilable Reason for Visit * Reason Onset Date Comments Medications Refill 01/12/2023 Encounter Details Date Type Department Care Team (Late st Contact Info) Description 01/12/2023 Refill [facility] Family Medicine [facility] [address] [place] [address] Ayden Angulo MD Medications Refill Social History [...] Da te nicotine polacrilex (COMMIT) [address] 1 Lozenge inside cheek every hour as needed for Other. Let lozenge dissolve in your mouth. Do not exceed 20 lozenges per day. 144 Lozenge 01/13/2023 01/27/2023 LORazepam (ATIVAN) 0.5 mg tablet Take 1 Tablets by mouth up to 2 times daily as needed for up to 30 days for Anxiety. Daily Max 1mg 30 Tablet 01/13/2023 01/27/2023 documented in this encounter Miscellaneous Notes * Telephone Encounter - Starr Bro MA - 01/13/2023 0946 EDT [facility] MEDICATION REFILL Medication: Nicotine polacrilex 4 mg lozenge Medication, dose, directions verified: Place 1 lozenge inside cheek every hour prn for other. Let lozenge dissolve in your mouth. Do not exceed 20 lozenges per day. [facility] CONTROLLED MEDICATION REFILL Medication: Lorazepam 0.5 mg Medication, dose, directions verified: Take 1 tab po up to 2 times daily prn for up to 30 days for anxiety. Daily max: 1 mg. Pharmacy verified: [facility] [place] Last office visit: 12/22/22 Next office visit: No appt scheduled. Prescription due to be filled: Yes, 30 tabs-15 day. Last urine drug screen: 12/22/22 Last VPMS: 12/03/22 Last CSA: 12/22/22 TC-Pended as last rx. documented in this encounter Plan [...] days for Anxiety. Daily Max 1mg Reorder 12/03/2022 01/12/2023 nicotine polacrilex (COMMIT) [address] 1 Lozenge inside cheek every hour as needed for Other. Let lozenge dissolve in your mouth. Do not exceed 20 lozenges per day. Reorder 12/29/2022 01/12/2023 documented as of this encounter Care Teams Parish Worker Relationship Specialty Start Date End Date Ayden Angulo MD PCP - General 07/28/19 01/28/23 documented as of this encounter
--- OUTSIDE RECORDS SUMMARY | 2024-06-16 00:24 | XMS_ITS | Encounter Summary ---
Author Organization [facility] Address [address] [place] [address] Care Team Providers Care Line Haul Truck Driver Name Role Phone Mia Alexander Primary Care Provider + Reason for Visit * Reason Onset Date Comments Medications Refill 03/29/2023 [place] Encounter Details Date Type Department Care Team (Late st Contact Info) Description 03/29/2023 Refill [facility] Family Medicine [facility] [address] [facility], [address] [place] [address] Lily Murguia PA-C [address] [facility] [address] [place] [phone] Medications Refill ([place]) Social History Tobacco Use Types Packs/Day Years [...] Pain. Daily Max: 2 Tablets 56 Tablet 03/31/2023 04/26/2023 documented in this encounter Miscellaneous Notes * Telephone Encounter - Pamela Patton MA - 03/31/2023 0943 EDT Controlled Medication Refill Request Medication and dose: [place] 10-325mg Verified: Yes Pharmacy verified: Yes Last visit: 12/22/2022 Next visit: 06/02/2023 CSA: UTD UDS: UTD Date prescription due: today VPMS: Med: [place] Date Last Filled: 03/02/23 Quantity: #56, 28 days. BS-pended per last rx, to covering provider as pt is due. * Telephone Encounter - Pam Giordano - 03/31/2023 0838 EDT Patient called requesting status of this prescription. documented in this encounter Plan of Treatment Not on file documented as of this encounter Visit Diagnoses Not on filedocumented in this encounter Discontinued Medications Medication Sig Discontinue Reason Start Date End Da te HYDROcodone-acetaminophe n (NORCO) 10-325 mg tablet Take 1 Tablet by mouth every 6 hours as needed for up to 28 days for Pain. Daily Max: 2 Tablets Reorder 03/02/2023 03/29/2023 documented as of this encounter Care Teams Line Haul Truck Driver Relationship Specialty Start Date End Date Mia Alexander DO [address] [place] [phone] PCP - General Family Medicine - Primary Care 01/29/23 documented as of this encounter
--- OUTSIDE RECORDS SUMMARY | 2024-06-16 00:24 | XMS_ITS | Encounter Summary ---
Author Organization [facility] Address [address] [place] [address] Care Team Providers Care Bead Wire Insulator Name Role Phone Ayden Angulo MD Primary Care Provider Unava ilable Reason for Visit * Reason Onset Date Comments Medications Refill 06/16/2022 Encounter Details Date Type Department Care Team (Late st Contact Info) Description 06/16/2022 Refill [facility] Family Medicine [facility] [address] [place] [address] Ayden Angulo MD Medications Refill Social History [...] te LORazepam (ATIVAN) 0.5 mg tablet Take 2 Tablets by mouth 2 times daily as needed for up to 30 days for Anxiety. Daily Max 2 mg 16 Tablet 06/18/2022 07/30/2022 documented in this encounter Miscellaneous Notes * Telephone Encounter - Pamela Patton MA - 06/17/2022 1606 EDT [facility] CONTROLLED MEDICATION REFILL Medication: Lorazepam Medication, dose, directions verified: 0.5mg, Take 2 tablets PO BID PRN for up to 30 days. 04/30/2022 Lorazepam 0.5 Mg Tablet 16.00 4 [facility] Last office visit: 04/01/22 (tele w/) Next office visit: 06/23/22 Prescription due to be filled: yes Last urine drug screen: 02/07/21 Last VPMS: 06/17/22 Last CSA: 02/07/21 Supervised by TC- Pended per last rx-ok to send? documented in this encounter Plan of Treatment Not on file documented as of this encounter Visit Diagnoses Not on filedocumented in this encounter Discontinued Medications Medication Sig Discontinue Reason Start Date End Da te LORazepam (ATIVAN) 0.5 mg tablet Take 2 Tablets by mouth 2 times daily as needed for up to 30 days for Anxiety. Daily Max 2 mg Reorder 04/30/2022 06/16/2022 documented as of this encounter Care Teams Bead Wire Insulator Relationship Specialty Start Date End Date Ayden Angulo MD PCP - General 07/28/19 01/28/23 documented as of this encounter
--- OUTSIDE RECORDS SUMMARY | 2024-06-16 00:24 | XMS_ITS | Encounter Summary ---
Author Organization [facility] Address [address] [place] [address] Care Team Providers Care Plug Machine Operator Name Role Phone Ayden Angulo MD Primary Care Provider Unava ilable Reason for Visit * Reason Comments Chronic Pain Encounter Details Date Type Department Care Team (Late st Contact Info) Description 12/22/2022 15:45 EDT Office Visit [facility] Medicine [facility] [address] [place] [address] Ayden Angulo MD Chronic, continuous use of opioids (Primary Dx); LIDIA (generalized anxiety disorder); Connective tissue disease overlap syndrome (HCC-CMS); Cigarette smoker; Acute recurrent frontal sinusitis; Thrush, oral; Bursitis of other bursa of left knee Social History Tobacco Use Types Packs/Day Years Used Date Smoking Tobacco: Every Day Cigarettes Smokeless Tobacco: Never Tobacco Cessation:Ready to Q [...] Sign Reading Time Taken Comments Blood Pressure 116/70 12/22/2022 1540 EDT Pulse 100 12/22/2022 1540 EDT Temperature 36.6 ??C (97.8 ??F) 12/22/2022 1540 EDT Respiratory Rate 18 12/22/2022 1540 EDT Oxygen Saturation 97% 12/22/2022 1540 EDT Inhaled Oxygen Concentration - - Weight 124.7 kg (275 lb) 12/22/2022 1540 EDT Height - - Body Mass Index 55.54 09/05/2019 1304 EST documented in this encounter Ordered Prescriptions Prescription Sig Dispensed Refills Start Date End Da te HYDROcodone-acetaminophe n (NORCO) 10-325 mg tablet Take 1 Tablet by mouth every 6 hours as needed for up to 28 days for Pain. Daily Max: 2 Tablets 56 Tablet 02/02/2023 02/24/2023 HYDROcodone-acetaminophe n (NORCO) 10-325 mg tablet Take 1 Tablet by mouth every 6 hours as needed for up to 28 days for Pain. Daily Max: 2 Tablets 56 Tablet 01/05/2023 05/25/2023 fluconazole (DIFLUCAN) 150 mg tablet 1 tab now, one in one week PO 2 Tablet 2 12/22/2022 07/02/2023 cefpodoxime (VANTIN) 200 mg tablet Take 1 Tablet by mouth every 12 hours for 7 days. 14 Tablet 12/22/2022 12/29/2022 documented in this encounter Progress Notes * Ayden Angulo MD - 12/22/2022 1541 EDT Primary Care Office Visit Assessment & Plan Diagnoses and all orders for this visit: Chronic, continuous use of opioids Comments: Discussed variable levels of pain she experiences. Underlying need for regular daily exercise, therapy as part of pain control Orders: - POCT DRUG SCREEN, URINE ([facility]) LIDIA (generalized anxiety disorder) Comments: Overall doing much better. Able to go out of the house and limited amounts though this is a success. Has made happy life at home Connective tissue disease overlap syndrome (HCC-CMS) ([facility]) Cigarette smoker Acute recurrent frontal sinusitis Comments: Antibiotics prescribed. Smoking cessation recommended Thrush, oral Comments: We will treat and probably treat again after antibiotics for sinuses Bursitis of other bursa of left knee Comments: Heat to area, NSAIDs, care with stairs and deep knee bends Other orders - cefpodoxime (VANTIN) 200 mg tablet - fluconazole (DIFLUCAN) 150 mg tablet - HYDROcodone-acetaminophen (NORCO) 10-325 mg tablet - HYDROcodone-acetaminophen (NORCO) 10-325 mg tablet No follow-ups on file. Patient education was direct. Barriers were assessed and addressed as needed. I spent a total of 30 minutes on the date of this encounter meeting with the patient and reviewing documentation/coordinating care as described in the above note. Unless otherwise noted, no procedures were performed at the time of the visit. Subjective Allie is a 42 y.o. female presenting with Chronic Pain HPI Allie is here today 1. Has a sore throat and postnasal drip at this point. Feels as if she has a sinus infection. 2. Still smoking though only a pack a day down from 2. 3. Left knee pain came on suddenly she does not know why. It hurts with climbing the stairs and in whenever she has to lie go up a step and bend her knee. Hurts to put pressure on it. Has never had this problem before. This is not tied to any significant injury 4. Chronic musculoskeletal pain remains. Says there are some days where she only takes a half of the pain medicine and other days she feels as if she could maximize it. 5. Finds her anxiety is under control but the main ways by never leaving her house. This is her first time out of the house in 3 weeks. She has chickens now a greenhouse and garden and enjoys being at home a great deal. Is able to see family members at her house. Says medication is helpful. Does keep the Narcan on hand with Enrique her partner knowledgeable how to use it though she says she is never going to be in a situation of overconsumption of meds. She says if she is anxious when she wakesup she has had to an alarm will not take her pain medicine for a few hours #6 has thrush again #7 Data reviewed this visit: problem list/past medical history, current medications and allergies ROS - See HPI Objective BP 116/70 (BP Cuff Location: Right arm, BP Cuff Sizes: Adult, large) Pulse 100 Temp 36.6 ??C (97.8 ??F) (Oral) Resp 18 Wt (!) 124.7 kg (275 lb) SpO2 97% BMI 55.54 kg/m?? Physical Exam Bright woman makes good eye contact. Does not appear anxious though she pulls out of her pocket hercontainer lorazepam which she brings with her when she goes out of the house just in case. She has a reddened throat with mucus seen in the posterior oropharynx. No adenopathy of the neck. Slight tenderness frontal sinuses with tapping Left knee tenderness at anserine bursa region no pain along joint no effusion of joint line as well. Oropharynx shows thrush on tongue and roof documented in this encounter Plan of Treatment Not on file documented as of this encounter Procedures Procedure Name Priority Date/Time Associated Diagnosis Comments POCT DRUG SCREEN, URINE ([facility]) Routine 12/22/2022 Chronic, continuous use of opioids documented in this encounter Results * (ABNORMAL) POCT DRUG SCREEN, URINE ([facility]) (12/22/2022) (mAMP) Methamphetami ne, POC Negative Negative [facility] POINT OF CARE (EARNEST) Cocaine, POC Negative Negative [facility] POINT OF CARE (THC) Marijuana, POC Negative Negative [facility] POINT OF CARE (MOR) Morphine, POC Negative for Toxin A & B [facility] POINT OF CARE (MDMA) Methylenediox ymethamphetam ine, POC Negative Negative [facility] POINT OF [facility] (MTD) Methadone, POC Negative Negative [facility] POINT OF [facility] (BAR) Barbiturates, POC Negative Negative [facility] POINT OF [facility] BZO) Benzodiazepin es, POC Negative Negative [facility] POINT OF [facility] (AMP) Amphetamine, POC Negative Negative [facility] POINT OF C[facility] (PCP) Phencyclidine , POC Negative Negative [facility] POINT [facility] (OXY) Oxycodone, POC Negative Negative [facility] POINT OF CARE (MOP) Opiates, POC Positive(A) Negative [facility] POINT [facility] QC Value Positive [facility] POIN T OF CARE Urine URINE / Unknown 12/22/2022 Ayden Angulo MD POINT OF CARE TEST O RDERABLES [facility] POINT OF CARE documented in this encounter Visit Diagnoses Diagnosis Chronic, continuous use of opioids- Primary Opioid type dependence, continuous LIDIA (generalized anxiety disorder) Generalized anxiety disorder Connective tissue disease overlap syndrome (HCC-CMS) Other specified diffuse disease of connective tissue Cigarette smoker Tobacco use disorder Acute recurrent frontal sinusitis Acute frontal sinusitis Thrush, oral Candidiasis of mouth Bursitis of other bursa of left knee documented in this encounter Discontinued Medications Medication Sig Discontinue Reason Start Date End Da te fluconazole (DIFLUCAN) 150 mg tablet 1 tab po now, repeat in 72hrs 03/02/2022 12/22/2022 White Petrolatum-Mineral Oil 57.3-42.5 % ointment Apply 1 Each to eye daily. 03/04/2022 12/22/2022 ARIPiprazole (ABILIFY) 10 mg tablet Take 1 Tablet by mouth daily. Start by taking at bedtime 12/02/2021 12/22/2022 HYDROcodone-acetaminophe n (NORCO) 10-325 mg tablet Take 1 Tablet by mouth every 6 hours as needed for up to 28 days for Pain. Daily Max: 2 Tablets Reorder 12/08/2022 12/22/2022 documented as of this encounter Care Teams Plug Machine Operator Relationship Specialty Start Date End Date Ayden Angulo MD PCP - General 07/28/19 01/28/23 documented as of this encounter
--- OUTSIDE RECORDS SUMMARY | 2024-06-16 00:24 | XMS_ITS | Encounter Summary ---
Author Organization [facility] Address [address] [place] [address] Care Team Providers Care Transportation Specialist Name Role Phone Ayden Angulo MD Primary Care Provider Unava ilable Reason for Visit * Reason Onset Date Comments Medications Refill 01/27/2023 Encounter Details Date Type Department Care Team (Late st Contact Info) Description 01/27/2023 Refill [facility] [address] [place] [address] Ayden Angulo MD Medications Refill Social History [...] 20 lozenges per day. 144 Lozenge 3 01/28/2023 03/02/2023 LORazepam (ATIVAN) 0.5 mg tablet Take 1 Tablets by mouth up to 2 times daily as needed for up to 30 days for Anxiety. Daily Max 1mg 30 Tablet 01/28/2023 02/26/2023 documented in this encounter Miscellaneous Notes * Telephone Encounter - Pamela Patton MA - 01/28/2023 1803 EDT [facility] CONTROLLED MEDICATION REFILL Medication: Nicotine lozenges Medication, dose, directions verified: 1 lozenge PRN every hour Medication: Lorazepam 0.5mg Medication, dose, directions verified: 1 tab 2x daily PRN for anxiety [facility]acy verified: [facility] Last office visit: 12/22/22 Next office visit: none Prescription due to be filled: yes Last urine drug screen: 12/22/22 Last VPMS: last filled 01/13/23 for #30, 15 days, due for fill. Last CSA: 12/22/22 TC-both pended per last rx, added 3 refills to nicotine Lozenges. * Telephone Encounter - Pamela Patton MA - 01/28/2023 [id number] EDTFrom: Allie Small To: Office of Ayden Angulo MD Sent: 01/27/2023 13:18 EDT Subject: Medication Renewal Request Refills have been requested for the following medications: atorvastatin (LIPITOR) 40 mg tablet [Ayden Angulo] amLODIPine (NORVASC) 5 mg tablet [Ayden Angulo] LORazepam (ATIVAN) 0.5 mg tablet [Ayden Angulo] nicotine polacrilex (COMMIT) 4 mg lozenge [Jennifer Angulo] Preferred pharmacy: [id number] documented in this encounter Plan of Treatment Not on file documented as of this encounter Visit Diagnoses Not on filedocumented in this encounter Discontinued Medications Medication Sig Discontinue Reason Start Date End Da te LORazepam (ATIVAN) 0.5 mg tablet Take 1 Tablets by mouth up to 2 times daily as needed for up to 30 days for Anxiety. Daily Max 1mg Reorder 01/13/2023 01/27/2023 nicotine polacrilex (COMMIT) [address] 1 Lozenge inside cheek every hour as needed for Other. Let lozenge dissolve in your mouth. Do not exceed 20 lozenges per day. Reorder 01/13/2023 01/27/2023 documented as of this encounter Care Teams Transportation Specialist Relationship Specialty Start Date End Date Ayden Angulo MD PCP - General 07/28/19 01/28/23 documented as of this encounter
--- OUTSIDE RECORDS SUMMARY | 2024-06-16 00:24 | XMS_ITS | Encounter Summary ---
Author Organization [facility] Address [address] [place] [address] Care Team Providers Care Farm Equipment Engineer Name Role Phone Ayden Angulo MD Primary Care Provider Unava ilable Reason for Visit * Reason Comments Medications Refill Encounter Details Date Type Department Care Team (Late st Contact Info) Description 10/25/2022 Refill [facility] Family Medicine [facility] [address] [place] [address] Ayden Angulo MD Medications Refill Social History [...] MOUTH ONE TIME DAILY 90 Tablet 3 10/26/2022 10/13/2023 documented in this encounter Miscellaneous Notes * Telephone Encounter - Starr Bro MA - 10/26/2022 1531 EST [facility] MEDICATION REFILL Medication: Atorvastatin 40 mg Medication, dose, directions verified: Take 1 tab po once daily. Pharmacy verified: [facility] Last office visit: 10/16/22 Next office visit: 11/06/22 Pended with 3 refills as previously prescribed. documented in this encounter Plan of Treatment Not on file documented as of this encounter Visit Diagnoses Not on filedocumented in this encounter Discontinued Medications Medication Sig Discontinue Reason Start Date End Da te atorvastatin (LIPITOR) 40 mg tablet TAKE ONE TABLET BY MOUTH ONE TIME DAILY 10/20/2021 10/26/2022 documented as of this encounter Care Teams Farm Equipment Engineer Relationship Specialty Start Date End Date Ayden Angulo MD PCP - General 07/28/19 01/28/23 documented as of this encounter
--- OUTSIDE RECORDS SUMMARY | 2024-06-16 00:24 | XMS_ITS | Encounter Summary ---
Author Organization [facility] Address [address] [place] [address] Care Team Providers Care Welding Machine Operator Thermit Name Role Phone Ayden Angulo MD Primary Care Provider Mia Mcclendon DO Primary Care Provider + Javier Valenzuela RD Unavailable [phone] Reason for Visit * Reason Onset Date Comments Ear Infection (Otitis Media) 11/27/2022 Encounter Details Date Type Department Care Team (Late st Contact Info) Description 11/27/2022 Telephone [facility] Family Medicine [place] [address], [facility] [address] [place] [address] Ayden Angulo MD Ear Infection (Otitis Media) Social History Tobacco Use Types Packs/Day Years [...] encounter Miscellaneous Notes * Telephone Encounter - Mitali Sena RN - 11/27/2022 0833 EST [facility] Primary Care SBAR Nurse Triage call note: Situation: Left ear pain, 9/10 sharp pain. Pt states if not touching ear or opening her mouth all of the way it feels like a tooth ache but in my ear. Clear liquid drainage from ear, pressure, areabelow ear is sensitive. Pt has nasal congestion and head pressure above eyes. Pt denies fever, hearing loss, other respiratory SXS. Background: SXS x 2 weeks Assessment: Needs eval Recommendation: No available appt's at office today with any provider. Pt advised to go to [facility] today, pt agreed to go. FYI to TC * Telephone Encounter - Preeti Roberto - 11/27/2022 0820 EST Patient reports L ear infection for 2 wk's. She has ear & jaw pain with drainage. What would TCadvise she do? documented in this encounter Plan of Treatment Not on file documented as of this encounter Visit Diagnoses Not on filedocumented in this encounter Care Teams Welding Machine Operator Thermit Relationship Specialty Start Date End Date Ayden Angulo MD PCP - General 07/28/19 01/28/23 Mia Alexander DO [address] [place] [address] [phone] PCP - General Family Medicine - Primary Care 01/29/[address] [place] [id number] Domestic Maid (CDE) Diabetes Education 11/29/23 11/29/23 documented as of this encounter
--- OUTSIDE RECORDS SUMMARY | 2024-06-16 00:24 | XMS_ITS | Encounter Summary ---
Author Organization [facility] Address [address] [place] [address] Care Team Providers Care Health Data Analyst Name Role Phone Ayden Angulo MD Primary Care Provider Unava ilable Reason for Visit * Reason Onset Date Comments Other 09/09/2022 Complaint about cancelled appts Encounter Details Date Type Department Care Team (Late st Contact Info) Description 09/09/2022 Telephone [facility] Medicine [facility] [address] [place] [address] Ayden Angulo MD Other (Complaint about cancelled appts) Social History Tobacco Use Types Packs/Day Years [...] encounter Miscellaneous Notes * Telephone Encounter - Lou Cheng - 09/23/2022 1055 EST Letter was submitted to [employer] * Telephone Encounter - Lou Cheng - 09/18/2022 1137 EST Team working on generating a letter for insurance company, keeping TE open for tracking * Telephone Encounter - Lou Cheng - 09/16/2022 0922 EST I have sent an email to our compliance team/records on what information we are able to release if any. Will update chart once information is received. * Telephone Encounter - Deloris Rod - 09/09/2022 1331 EST Marjorie from [facility] called to file a complaint on behalf of patient in regards to cancelled appointments with our office. Case Reference # [id number] documented in this encounter Plan of Treatment Not on file documented as of this encounter Visit Diagnoses Not on filedocumented in this encounter Care Teams Health Data Analyst Relationship Specialty Start Date End Date Ayden Angulo MD PCP - General 07/28/19 01/28/23 documented as of this encounter
--- OUTSIDE RECORDS SUMMARY | 2024-06-16 00:24 | XMS_ITS | Encounter Summary ---
Author Organization [facility] Address [address] [place] [address] Care Team Providers Care Material Movers Name Role Phone Ayden Angulo MD Primary Care Provider Unava ilable Reason for Visit * Reason Onset Date Comments Medications Refill 10/15/2022 Encounter Details Date Type Department Care Team (Late st Contact Info) Description 10/15/2022 Refill [facility] Family Medicine [facility] [address] , [address] [place] [address] Ayden Angulo MD Medications Refill Social History [...] for Anxiety. Daily Max 1mg 30 Tablet 10/19/2022 12/02/2022 documented in this encounter Miscellaneous Notes * Telephone Encounter - Pamela Patton MA - 10/19/2022 1007 EST [facility] CONTROLLED MEDICATION REFILL Medication: Lorazepam 0.5mg Medication, dose, directions verified: 1 tab up to 2x daily PRN for anxiety Pharmacy verified: [place] Last office visit: 06/23/22(tele) Next office visit: 11/06/22 Prescription due to be filled: yes Last urine drug screen: 02/07/21 Last VPMS: 10/19/22 Last CSA: 02/07/21 Per VPMS last filled 09/03/22 for 30 tabs or 15 days, due for fill. TC-pended per last rx. * Telephone Encounter - Daylin Guy RN - 10/19/2022 0944 ESTFrom: Allie Small To: Office of Ayden Angulo MD Sent: 10/15/2022 20:10 EST Subject: Medication Renewal Request Refills have been requested for the following medications: LORazepam (ATIVAN) 0.5 mg tablet [Ayden Angulo] Preferred pharmacy: [id number] documented in this encounter Plan of Treatment Not on file documented as of this encounter Visit Diagnoses Not on filedocumented in this encounter Discontinued Medications Medication Sig Discontinue Reason Start Date End Da te LORazepam (ATIVAN) 0.5 mg tablet Take 1 Tablets by mouth up to 2 times daily as needed for up to 30 days for Anxiety. Daily Max 1mg Reorder 09/03/2022 10/15/2022 documented as of this encounter Care Teams Material Movers Relationship Specialty Start Date End Date Ayden Angulo MD PCP - General 07/28/19 01/28/23 documented as of this encounter
--- OUTSIDE RECORDS SUMMARY | 2024-06-16 00:24 | XMS_ITS | Encounter Summary ---
Author Organization [facility] Address [address] [place] [address] Care Team Providers Care Client Advisor Name Role Phone Ayden Angulo MD Primary Care Provider Unava ilable Reason for Visit * Reason Onset Date Comments Medications Refill 09/25/2022 Encounter Details Date Type Department Care Team (Late st Contact Info) Description 09/25/2022 Refill [facility] Family Medicine [facility] [address] [place] [address] Ayden Angulo MD Medications Refill Social History [...] as needed for Muscle Spasms. 20 Tablet 09/28/2022 01/15/2023 documented in this encounter Miscellaneous Notes * Telephone Encounter - Pamela Patton MA - 09/28/2022922 EST [facility] MEDICATION REFILL Medication: methocarbamol 750mg Medication, dose, directions verified: 1 tab Q6H PRN [facility]acy [facility] Last office visit: 06/23/22 Next office visit: 10/16/22 Per pharmacist at [facility], pt still has 2 refills on Nicotine lozenges, declined refill on that, methocarbamol last filled 03/25/22 for 20 tabs, due for fill. TC-pended per last rx. * Telephone Encounter - Pamela Patton MA - 09/28/2022918 ESTFrom: Allie Small To: Office of Ayden Angulo MD Sent: 09/25/2022 7:02 EST Subject: Medication Renewal Request Refills have been requested for the following medications: methocarbamoL (ROBAXIN) 750 mg tablet [Ayden Angulo] nicotine polacrilex (COMMIT) 4 mg lozenge [Ayden Angulo] Preferred pharmacy: [id number] Medication renewal s requested in this message routed separately: nystatin (MYCOSTATIN) powder [Wilver S Garcias] documented in this encounter Plan of Treatment Not on file documented as of this encounter Visit Diagnoses Not on filedocumented in this encounter Discontinued Medications Medication Sig Discontinue Reason Start Date End Da te methocarbamoL (ROBAXIN) 750 mg tablet Take 1 Tablet by mouth every 6 hours as needed for Muscle Spasms. Reorder 03/25/2022 09/25/2022 documented as of this encounter Care Teams Client Advisor Relationship Specialty Start Date End Date Ayden Angulo MD PCP - General 07/28/19 01/28/23 documented as of this encounter
--- OUTSIDE RECORDS SUMMARY | 2024-06-16 00:24 | XMS_ITS | Encounter Summary ---
Author Organization [facility] Address [address] [place] [address] Care Team Providers Care Laborer Pole Crew Name Role Phone Ayden Angulo MD Primary Care Provider Unava ilable Reason for Visit * Reason Onset Date Comments Medications Refill 05/06/2022 Encounter Details Date Type Department Care Team (Late st Contact Info) Description 05/06/2022 Refill [facility] Family Medicine [facility] [address] [place] [address] Ayden Angulo MD Medications Refill Social History [...] CAPSULE BY MOUTH ONE TIME DAILY 90 capsule 05/06/2022 08/04/2022 aspirin 81 mg EC tabletIndications:Cerebr ovascular accident (CVA), unspecified mechanism (HCC-CMS) TAKE ONE TABLET BY MOUTH ONE TIME DAILY 100 Tablet 05/06/2022 08/17/2022 documented in this encounter Miscellaneous Notes * Telephone Encounter - Gisella Tamayo RN - 05/06/2022 1356 EDT JAMEL 04/01/2022 NOV 05/14/2022 Refilled per protocol documented in this encounter Plan of Treatment Not on file documented as of this encounter Visit Diagnoses Diagnosis Cerebrovascular accident (CVA), unspecified mechanism ([facility])- Primary documented in this encounter Discontinued Medications Medication Sig Discontinue Reason Start Date End Da te aspirin 81 mg EC tablet Take 1 Tab by mouth daily. 02/07/2021 05/06/2022 omeprazole (PRILOSEC) 20 mg capsule TAKE ONE CAPSULE BY MOUTH ONE TIME DAILY 05/23/2021 05/06/2022 documented as of this encounter Care Teams Laborer Pole Crew Relationship Specialty Start Date End Date Ayden Angulo MD PCP - General 07/28/19 01/28/23 documented as of this encounter
--- OUTSIDE RECORDS SUMMARY | 2024-06-16 00:24 | XMS_ITS | Encounter Summary ---
Author Organization [facility] Address [address] [place] [address] Care Team Providers Care Editor At Large Name Role Phone Ayden Angulo MD Primary Care Provider Unava ilable Reason for Visit * Reason Onset Date Comments Medications Refill 12/05/2022 Encounter Details Date Type Department Care Team (Late st Contact Info) Description 12/05/2022 Refill [facility] Family Medicine [facility] [address] , [address] [place] [address] Ayden Angulo MD Medications Refill Social History [...] Pain. Daily Max: 2 Tablets 56 Tablet 12/08/2022 12/22/2022 documented in this encounter Miscellaneous Notes * Telephone Encounter - Tonya Florentino - 12/08/2022 0839 EDT Pt has appt scheduled on 12/21 at 11:30. Was advised her next refill is dependant on her making it tothis appt * Telephone Encounter - Ayden Angulo MD - 12/08/2022 0814 EDT Call patient Will refill prescription this month but this is the last refill of this to be done given she does not come for in person visits. Set up an ov in one month, must keep this if she wants to continue to receive controlled substances * Telephone Encounter - Smiley Cedeno - 12/07/2022 1637 EDT Patient called to check on the status. * Telephone Encounter - Lucy Morin - 12/07/2022 1348 EDT Pt called to check status of request. * Telephone Encounter - Debbie Linda LPN - 12/07/2022 1211 EDT TE to TC, pt had video visit on 11/06/2022, has cancelled scheduled OV for tomorrow, has long history of cancelling OVs. Pt has had about 5 televideo visits in the past year, has cancelled all scheduled OV since last seen in office on 02/07/2021 (9 in total). [facility] CONTROLLED MEDICATION REFILL Medication: Hydrocodone Medication, dose, directions verified: yes Pharmacy verified: yes Last office visit: 02/07/2021 Next office visit: none Prescription due to be filled: 12/08/2022 Last urine drug screen: 02/07/2021 Last VPMS: 12/07/2022 -Per VPMS pt last filled medication on 11/10/2022 for 28d supply (#56 tabs) with no refills. Last CSA: 02/07/2021 Pt due for refill 12/08/2022, if she is out today it is an early refill request. TE to TC, please review, advise * Telephone Encounter - Lou Cheng - 12/07/2022 0914 EDT Patient calling back to check the status, she is completley out and in pain, requesting to be sent as soon as possible. documented in this encounter Plan of Treatment Not on file documented as of this encounter Visit Diagnoses Not on filedocumented in this encounter Discontinued Medications Medication Sig Discontinue Reason Start Date End Da te HYDROcodone-acetaminophe n (NORCO) 10-325 mg tablet Take 1 Tablet by mouth every 6 hours as needed for up to 28 days for Pain. Daily Max: 2 Tablets 09/15/2022 12/08/2022 HYDROcodone-acetaminophe n (NORCO) 10-325 mg tablet Take 1 Tablet by mouth every 6 hours as needed for up to 28 days for Pain. Daily Max: 2 Tablets 10/13/2022 12/08/2022 HYDROcodone-acetaminophe n (NORCO) 10-325 mg tablet Take 1 Tablet by mouth every 6 hours as needed for up to 28 days for Pain. Daily Max: 2 Tablets Reorder 11/10/2022 12/05/2022 documented as of this encounter Care Teams Editor At Large Relationship Specialty Start Date End Date Ayden Angulo MD PCP - General 07/28/19 01/28/23 documented as of this encounter
--- OUTSIDE RECORDS SUMMARY | 2024-06-16 00:24 | XMS_ITS | Encounter Summary ---
Author Organization [facility] Address [address] [place] [address] Care Team Providers Care Propeller Layout Worker Name Role Phone Mia Alexander Primary Care Provider + Reason for Visit * Reason Comments Medications Refill Encounter Details Date Type Department Care Team (Late st Contact Info) Description 03/02/2023 Refill [facility] Family Medicine [facility] [address] [place] [address] Ayden Angulo MD Medications Refill Social History [...] Do not exceed 20 lozenges per day 144 Lozenge 3 03/02/2023 03/26/2023 documented in this encounter Miscellaneous Notes * Telephone Encounter - Starr Bro MA - 03/02/2023 1059 EDT [facility] MEDICATION REFILL Medication: Nicotine polacrilex 4 mg lozenge Medication, dose, directions verified: Place 1 lozenge inside cheek every hour prn for other. Let lozenge dissolve in your mouth. Do not exceed 20 lozenges per day. Pharmacy verified: [facility] Last office visit: 12/22/22 Next office visit: 06/02/23 AW-Pended with 3 refills. documented in this encounter Plan of Treatment [...] Do not exceed 20 lozenges per day. 01/28/2023 03/02/2023 documented as of this encounter Care Teams Propeller Layout Worker Relationship Specialty Start Date End Date Mia Alexander DO [address] [place] [phone] PCP - General Family Medicine - Primary Care 01/29/23 documented as of this encounter
--- OUTSIDE RECORDS SUMMARY | 2024-06-16 00:24 | XMS_ITS | Encounter Summary ---
Author Organization [facility] Address [address] [place] [address] Care Team Providers Care Argon Tester Name Role Phone Mia Alexander Primary Care Provider + Reason for Visit * Reason Onset Date Comments Medications Refill 05/21/2023 Encounter Details Date Type Department Care Team (Late st Contact Info) Description 05/21/2023 Refill [facility] Family Medicine [address], [facility] [address] [place] [address] Sue Kerns, [facility] [address] [facility] [address] [place] [address] Medications Refill Social History Tobacco [...] pain). Daily Max: 2 Tablets 56 Tablet 05/26/2023 06/18/2023 documented in this encounter Miscellaneous Notes * Telephone Encounter - Pamela Patton MA - 05/25/2023 0910 EDT Controlled Medication Refill Request Medication and dose: Hydrocodone-acetaminophen 10-325mg Verified: Yes Pharmacy verified: Yes Last visit: 12/22/2022 Next visit: 06/02/2023 CSA: UTD UDS: UTD Date prescription due: 05/26/23 VPMS: Med: norco Date Last Filled: 04/28/23 Quantity: #56, 28 days AW-pended per last rx to be filled 05/26/23 to last until appt 06/02/23. * Telephone Encounter - Pamela Patton MA - 05/25/2023 0909 EDTFrom: Allie Small To: Office of Sue Kerns DNP Sent: 05/21/2023 12:43 EDT Subject: Medication Renewal Request Refills have been requested for the following medications: HYDROcodone-acetaminophen (NORCO) 10-325 mg tablet [Sue Kerns] Preferred pharmacy: [id number] documented in this encounter Plan of Treatment Not on file documented as of this encounter Visit Diagnoses Not on filedocumented in this encounter Discontinued Medications Medication Sig Discontinue Reason Start Date End Da te HYDROcodone-acetaminophe n (NORCO) 10-325 mg tablet Take 1 Tablet by mouth every 6 hours as needed for up to 28 days for Pain. Daily Max: 2 Tablets Alternate therapy 01/05/2023 05/25/2023 HYDROcodone-acetaminophe n (NORCO) 10-325 mg tablet Take 1 Tablet by mouth every 6 hours as needed for up to 28 days for Pain. Daily Max: 2 Tablets Reorder 04/28/2023 05/21/2023 documented as of this encounter Care Teams Argon Tester Relationship Specialty Start Date End Date Mia Alexander DO [address] [place] [phone] PCP - General Family Medicine - Primary Care 01/29/23 documented as of this encounter
--- OUTSIDE RECORDS SUMMARY | 2024-06-16 00:24 | XMS_ITS | Encounter Summary ---
Author Organization [facility] Address [address] [place] [address] Care Team Providers Care Ob/Gyn Nurse Name Role Phone Ayden Angulo MD Primary Care Provider Mia Mcclendon DO Primary Care Provider + Javier Valenzuela RD Unavailable [phone] Reason for Visit * Reason Onset Date Comments New Patient Visit 08/24/2022 Encounter Details Date Type Department Care Team (Late st Contact Info) Description 08/24/[address] [facility] [place] [facility] [place] Primary Care - [address] [address] Guicho Monge MD [address] [place] [phone] New Patient Visit Social History Tobacco Use Types Packs/Day Years [...] encounter Miscellaneous Notes * Telephone Encounter - Esther Singh - 08/25/2022 1131 EST Patient aware. * Telephone Encounter - Guicho Monge III, MD - 08/24/2022 1707 EST I believe she is getting good care with Dr. Angulo and his team. I think she should stay with him * Telephone Encounter - Esther Singh - 08/24/2022 1154 EST Allie is wondering if would take her back on as a patient. She switched to Dr. Angulo as her kids went there as well. Now they are grown adults and she is having issues with the office. Always canceling her appointments. States she saw back in 2013. Are we willing to take he r back on? documented in this encounter Plan of Treatment Not on file documented as of this encounter Visit Diagnoses Not on filedocumented in this encounter Care Teams Ob/Gyn Nurse Relationship Specialty Start Date End Date Ayden Angulo MD PCP - General 07/28/19 01/28/23 Mia Alexander DO [address] [place] [phone] PCP - General Family Medicine - Primary Care 01/29/[address] [place] [phone] Inspector Repairer (CDE) Diabetes Education 11/29/23 11/29/23 documented as of this encounter
--- OUTSIDE RECORDS SUMMARY | 2024-06-16 00:24 | XMS_ITS | Encounter Summary ---
Author Organization [facility] Address [address] [place] [address] Care Team Providers Care Clinical Psychologist Licensed Name Role Phone Ayden Angulo MD Primary Care Provider Unava ilable Reason for Visit * Reason Onset Date Comments Leg Pain 08/18/2022 Encounter Details Date Type Department Care Team (Late st Contact Info) Description 08/18/2022 Telephone [facility] [facility] [address] [facility], [facility] [address] [place] [address] Ayden Angulo MD Leg Pain Social History Tobacco Use Types Packs/Day [...] encounter Miscellaneous Notes * Telephone Encounter - Ayden Angulo MD - 08/19/2022 1718 EST Fyi to see you * Telephone Encounter - William Wang MD - 08/19/2022 1201 EST Patient called communications strategist MD last evening with same complaints as below. No fever or signs of systemictoxicity. Advised EC or PCP office acute visit and she agreed. * Telephone Encounter - Mitali Sena RN - 08/19/2022 1114 EST Pt reports ongoing swelling from feet up to knees, no redness, warmth or SOB. No medication to reduce swelling, no compression stockings. Pt advised to elevate legs. Pt also reports for last 1.5 weeks red, hot, hard lumps on her lowers legs that range in size from a dime to 1/2 dollar size. No broken skin, no change in size, no itching. Pt currently has 4 lumps. Pt scheduled for an OV with AW for tomorrow. * Telephone Encounter - Mitali Sena RN - 08/19/2022 0822 EST LM with person that answered the phone to have pt call back * Telephone Encounter - Deloris Rod - 08/18/2022 1512 EST Pt called back, requesting appt. Pt already scheduled to see TC 09/04. Please advise on sooner apptavailability and triage. * Telephone Encounter - Smiley Cedeno - 08/18/2022 0915 EST Patient has red gilliland on her leg that are hot & painful. documented in this encounter Plan of Treatment Not on file documented as of this encounter Visit Diagnoses Not on filedocumented in this encounter Care Teams Clinical Psychologist Licensed Relationship Specialty Start Date End Date Ayden Angulo MD PCP - General 07/28/19 01/28/23 documented as of this encounter
--- OUTSIDE RECORDS SUMMARY | 2024-06-16 00:24 | XMS_ITS | Encounter Summary ---
Author Organization [facility] Address [address] [place] [address] Care Team Providers Care Shingle Trimmer Name Role Phone Ayden Angulo MD Primary Care Provider Unava ilable Reason for Visit * Reason Onset Date Comments Diarrhea 10/02/2022 Encounter Details Date Type Department Care Team (Late st Contact Info) Description 10/02/2022 Telephone [facility] Family Medicine [facility] [address] [place] [address] Ayden Angulo MD Diarrhea Social History Tobacco Use Types Packs/Day Years [...] Dispensed Refills Start Date End Da te ondansetron (ZOFRAN) 8 mg tablet Take 1 Tablet by mouth 2 times daily for 7 days. 14 Tablet 10/02/2022 10/09/2022 documented in this encounter Miscellaneous Notes * Telephone Encounter - Mitali Sena RN - 10/02/2022 1400 EST Pt notified Zofran was sent in. Pt aware to call back if SXS worsen or fail to improve. * Telephone Encounter - Ayden Angulo MD - 10/02/2022 1239 EST Call. zofran sent * Telephone Encounter - Mitali Sena RN - 10/02/2022 1212 EST [facility] Primary Care SBAR Nurse Triage call note: Situation: Fever, productive cough with clear thick sputum, SOB with activity, sore throat, nasal congestion, runny nose, sinus pressure, fatigue, n/v/d. O2 Sat 97%. Pt states at this point vomiting,3-4x day, is correlated to coughing. Diarrhea 10x today, pure liquid, no blood. Pt not eating but is taking in fluids. Pt taking DayQuil, Nyquil, Delsym. Background: SXS started 09/22. Pt states 2 members of household have tested positive for influenza A,pt has not been tested. Assessment: multiple SXS. Recommendation: Increase fluids, Brat diet, ret. Pt requesting medication for nausea and diarrhea * Telephone Encounter - Smiley Cedeno - 10/02/2022 1058 EST Patient has diarrhea & vomitting. documented in this encounter Plan of Treatment Not on file documented as of this encounter Visit Diagnoses Not on filedocumented in this encounter Care Teams Shingle Trimmer Relationship Specialty Start Date End Date Ayden Angulo MD PCP - General 07/28/19 01/28/23 documented as of this encounter
--- OUTSIDE RECORDS SUMMARY | 2024-06-16 00:24 | XMS_ITS | Encounter Summary ---
Author Organization [facility] Address [address] [place] [address] Care Team Providers Care Practical Nursing Instructor Name Role Phone Ayden Angulo MD Primary Care Provider Unava ilable Reason for Visit * Reason Comments Medications Refill Encounter Details Date Type Department Care Team (Late st Contact Info) Description 10/20/2022 Refill [facility] Family Medicine [facility] [address], [address] [place] [address] Ayden Angulo MD Medications Refill Social History [...] te nicotine polacrilex (COMMIT) 4 mg lozenge Let one lozenge dissolve in your mouth every hour as needed. Do not exceed 20 lozenges per day 144 Lozenge 10/20/2022 12/02/2022 documented in this encounter Miscellaneous Notes * Telephone Encounter - Starr Bro MA - 10/20/2022 1132 EST [facility] MEDICATION REFILL Medication: Nicotine polacrilex 4 mg lozenge Medication, dose, directions verified: Let one lozenge dissolve in your mouth every hour prn. Do not exceed 20 lozenges per day. Pharmacy verified: [facility] [place] [place] Last office visit: 10/16/22 Next office visit: 11/06/22 documented in this encounter Plan of Treatment Not on file documented as of this encounter Visit Diagnoses Not on filedocumented in this encounter Discontinued Medications Medication Sig Discontinue Reason Start Date End Da te nicotine polacrilex (COMMIT) 4 mg lozenge Let one lozenge dissolve in your mouth every hour as needed. Do not exceed 20 lozenges per day. 03/25/2022 10/20/2022 documented as of this encounter Care Teams Practical Nursing Instructor Relationship Specialty Start Date End Date Ayden Angulo MD PCP - General 07/28/19 01/28/23 documented as of this encounter
--- OUTSIDE RECORDS SUMMARY | 2024-06-16 00:24 | XMS_ITS | Encounter Summary ---
Author Organization [facility] Address [address] [place] [address] Care Team Providers Care Director Of Psychology Name Role Phone Ayden Angulo MD Primary Care Provider Unava ilable Reason for Visit * Reason Onset Date Comments Medications Refill 12/02/2022 Encounter Details Date Type Department Care Team (Late st Contact Info) Description 12/02/2022 Refill [facility] Family Medicine [facility] [address] [place] [address] Ayden Angulo MD Medications Refill Social History [...] exceed 20 lozenges per day. 144 Lozenge 12/03/2022 12/09/2022 documented in this encounter Miscellaneous Notes * Telephone Encounter - Pamela Patton MA - 12/03/2022 1027 EDT [facility] MEDICATION REFILL Medication: Nicotine 4mg Lozenge Medication, dose, directions verified: let 1 lozenge dissolve in mouth every hour PRN, do not exceed 20 per day. [facility] Last office visit: 11/06/22(tele) Next office visit: none TC-pended per last rx. * Telephone Encounter - Pamela Patton MA - 12/03/2022 1027 EDTFrom: Allie Small To: Office of Ayden Angulo MD Sent: 12/02/2022 21:25 EDT Subject: Medication Renewal Request Refills have been requested for the following medications: nicotine polacrilex (COMMIT) 4 mg lozenge [Ayden Angulo] Preferred pharmacy: [id number] documented in this encounter Plan of Treatment Not on file documented as of this encounter Visit Diagnoses Not on filedocumented in this encounter Discontinued Medications Medication Sig Discontinue Reason Start Date End Da te nicotine polacrilex (COMMIT) 4 mg lozenge Let one lozenge dissolve in your mouth every hour as needed. Do not exceed 20 lozenges per day Reorder 10/20/2022 12/02/2022 documented as of this encounter Care Teams Director Of Psychology Relationship Specialty Start Date End Date Ayden Angulo MD PCP - General 07/28/19 01/28/23 documented as of this encounter
--- OUTSIDE RECORDS SUMMARY | 2024-06-16 00:24 | XMS_ITS | Encounter Summary ---
Author Organization [facility] Address [address] [place] [address] Care Team Providers Care Lens Generator Name Role Phone Mia Alexander Primary Care Provider + Reason for Visit * Reason Onset Date Comments Medications Refill 03/26/2023 Lorazepam Encounter Details Date Type Department Care Team (Late st Contact Info) Description 03/26/2023 Refill [facility] Family Medicine [facility] [address] [facility], [address] [place] [address] Lily Murguia PA-C [address] [facility], [place] [address] [place] [phone] Medications Refill (Lorazepam ) Social History Tobacco Use Types Packs/Day [...] Anxiety. Daily Max: 1 mg 30 Tablet 03/31/2023 04/30/2023 documented in this encounter Miscellaneous Notes * Telephone Encounter - Pamela Patton MA - 03/31/2023 0935 EDT Controlled Medication Refill Request Medication and dose: Lorazepam 0.5mg Verified: Yes Pharmacy verified: Yes Last visit: 12/22/2022 Next visit: 06/02/2023 CSA: UTD UDS: UTD Date prescription due: today VPMS: Med: Lorazepam Date Last Filled: 02/26/23 Quantity: #30, 30 days. BS-pended per last rx, to covering provider as pt is due. * Telephone Encounter - Pamela Patton MA - 03/31/2023 0934 EDTFrom: Allie Small To: Office of Lily Murguia PA-C Sent: 03/26/2023 12:19 EDT Subject: Medication Renewal Request Refills have been requested for the following medications: LORazepam (ATIVAN) 0.5 mg tablet [Lily Murguia] Preferred pharmacy: [id number] Medication renewals requested in this message routed separately: nicotine polacrilex (COMM IT) 4 mg lozenge [Mia Alexander] documented in this encounter Plan of Treatment [...] days for Anxiety. Daily Max: 1 mg Reorder 02/26/2023 03/26/2023 documented as of this encounter Care Teams Lens Generator Relationship Specialty Start Date End Date Mia Alexander DO [address] [phone] PCP - General Family Medicine - Primary Care 01/29/23 documented as of this encounter
--- OUTSIDE RECORDS SUMMARY | 2024-06-16 00:24 | XMS_ITS | Encounter Summary ---
Author Organization [facility] Address [address] [place] [address] Care Team Providers Care Thermostat Repairer Name Role Phone Ayden Busch MD Primary Care Provider Unava ilable Reason for Visit * Reason Onset Date Comments Appointment Related 05/11/2022 Encounter Details Date Type Department Care Team (Late st Contact Info) Description 05/11/2022 Telephone [facility] Medicine [facility] [address] [place] [address] Ayden Busch MD Appointment Related Social History Tobacco Use Types [...] Dispensed Refills Start Date End Da te nirmatrelvir-ritonavir (PAXLOVID, EUA,) 300 mg (150 mg x 2)-100 mg tablet Take 3 Tablets by mouth 2 times daily for 5 days. 1 Pack 05/12/2022 05/17/2022 documented in this encounter Miscellaneous Notes * Addendum Note - Daylin Mendez RN - 05/12/2022 0855 EDTAddended by: DAYLIN MENDEZ on: 05/12/2022 08:55 Modules accepted: Orders * Telephone Encounter - Daylin Mendez RN - 05/12/2022 0855 EDT Patient notified. SE reviewed. * Telephone Encounter - Daylin Mendez RN - 05/11/2022 1727 EDT Tried to reach patient. No answer and unable to leave msg. Recording is asking me to leave a remote access code. * Telephone Encounter - Ayden Busch MD - 05/11/2022 1631 EDT Yes. Stop the atorvastatin while on it. May be able to coordinate med pick p with her son and ex * Telephone Encounter - Daylin Mendez RN - 05/11/2022 1530 EDT Before I call her back- I see she is on atorvastatin ( I can tell her to hold that while on the paxlovid). Any other meds she needs to hold? * Addendum Note - Ayden Busch MD - 05/11/2022 1436 EDTAddended by: AYDEN BUSCH on: 05/11/2022 14:36 Modules accepted: Orders * Telephone Encounter - Ayden Busch MD - 05/11/2022 1435 EDT I would treat but where to send it to? If she can have someone come over to [facility], they have it. I am nor sure which pharmacies in [place] carry it * Telephone Encounter - Debbie Linda LPN - 05/11/2022 1421 EDT This automobile service writer spoke with pt who states that her Sp02 has been running between 94- 96% consistently. She reports that a cough, sinus pressure, headache, and severe sore throat. She states that she has taken some [place] Daytime with some positive effect. She wants to be sure that it's ok for her to take that and all her meds. TE to TC, pt does have some risk factors- obesity, smoking- can she receive Paxlovid? * Telephone Encounter - Smiley Cedeno - 05/11/2022 1411 EDT Patient tested positive for COVID. It hurts her to breathe. * Telephone Encounter - Smiley Cedeno - 05/11/2022 1258 EDT Notified patient. * Telephone Encounter - Daylin Mendez RN - 05/11/2022 1228 EDT Please notify * Telephone Encounter - Ayden Busch MD - 05/11/2022 1227 EDT Test on day of appt and if negative can come * Telephone Encounter - Smiley Cedeno - 05/11/2022 0905 EDT Patient has an appt 05/14. She has a sore throat, body aches & is stuffy. She has tested negative for COVID twice. Please advise if appt should be rescheduled. documented in this encounter Plan of Treatment Not on file documented as of this encounter Visit Diagnoses Not on filedocumented in this encounter Care Teams Thermostat Repairer Relationship Specialty Start Date End Date Ayden Busch MD PCP - General 07/28/19 01/28/23 documented as of this encounter
--- OUTSIDE RECORDS SUMMARY | 2024-06-16 00:24 | XMS_ITS | Encounter Summary ---
Author Organization [facility] Address [address] [place] [address] Care Team Providers Care Architectural Project Manager Name Role Phone Ayden Angulo MD Primary Care Provider Unava ilable Reason for Visit * Reason Comments Medications Refill Encounter Details Date Type Department Care Team (Late st Contact Info) Description 12/09/2022 Refill [facility] Family Medicine [facility]] [address], [address] [place] [address] Ayden Angulo MD Medications Refill Social History [...] exceed 20 lozenges per day. 144 Lozenge 12/09/2022 12/29/2022 documented in this encounter Miscellaneous Notes * Telephone Encounter - Starr Bro MA - 12/09/2022 1154 EDT [facility] MEDICATION REFILL Medication: Nicotine Polacrilex 4 mg lozenge Medication, dose, directions verified: Place 1 lozenge inside cheek every hour prn for other. Let lozenge dissolve in your mouth. Do not exceed 20 lozenges per day. [place] Last office visit: 11/06/22 Next office visit: 12/22/22 TC-Pended as last rx. I spoke with the pharmacy. They did not receive rx script to fill. documented in this encounter Plan of Treatment [...] Do not exceed 20 lozenges per day. 12/03/2022 12/09/2022 documented as of this encounter Care Teams Architectural Project Manager Relationship Specialty Start Date End Date Ayden Angulo MD PCP - General 07/28/19 01/28/23 documented as of this encounter
--- OUTSIDE RECORDS SUMMARY | 2024-06-16 00:24 | XMS_ITS | Encounter Summary ---
Author Organization [facility] Address [address] [place] [address] Care Team Providers Care Knapsack Sprayer Name Role Phone Mia Alexander Primary Care Provider + Javier Valenzuela RD Unavailable [phone] Reason for Visit * Reason Onset Date Comments Medications Refill 05/05/2023 Encounter Details Date Type Department Care Team (Late st Contact Info) Description 05/05/2023 Refill [facility] Family Medicine [address], [facility] 2 [place] [address] Wilver Garcias MD [address] [place] [address] 2 [place] [address] Medications Refill Social History Tobacco [...] Miscellaneous Notes * Telephone Encounter - Pamela Patton, BASILIO - 05/05/2023 1413 EDT Duplicate request. documented in this encounter Plan of Treatment Not on file documented as of this encounter Visit Diagnoses Diagnosis LIDIA (generalized anxiety disorder) Generalized anxiety disorder documented in this encounter Care Teams Knapsack Sprayer Relationship Specialty Start Date End Date Mia Alexander DO [address] [place] [phone] PCP - General Family Medicine - Primary Care 01/29/[address] [place] [phone] Computer Operator (CDE) Diabetes Education 11/29/23 11/29/23 documented as of this encounter
--- OUTSIDE RECORDS SUMMARY | 2024-06-16 00:24 | XMS_ITS | Encounter Summary ---
Author Organization [facility] Address [address] [place] [address] Care Team Providers Care Machinist Instructor Name Role Phone Ayden Angulo MD Primary Care Provider Unava ilable Reason for Visit * Reason Onset Date Comments Mechanic General Operational Test Message 01/15/2023 Encounter Details Date Type Department Care Team (Late st Contact Info) Description 01/15/2023 Telephone [facility] Medicine [address], [facility] 2 [place] [address] Wilver Garcias MD [address] [place] [address] [address] [place] [phone] Mechanic General Operational Test Message Social History Tobacco Use Types Packs/Day [...] as needed for Muscle Spasms. 20 Tablet 01/15/2023 09/10/2023 documented in this encounter Miscellaneous Notes * Telephone Encounter - Wilver Garcias MD - 01/15/2023 1841 EDT Requests refill of methocarbamol; rx sent in. documented in this encounter Plan of Treatment Not on file documented as of this encounter Visit Diagnoses Not on filedocumented in this encounter Discontinued Medications Medication Sig Discontinue Reason Start Date End Da te methocarbamoL (ROBAXIN) 750 mg tablet Take 1 Tablet by mouth every 6 hours as needed for Muscle Spasms. Reorder 09/28/2022 01/15/2023 documented as of this encounter Care Teams Machinist Instructor Relationship Specialty Start Date End Date Ayden Angulo MD PCP - General 07/28/19 01/28/23 documented as of this encounter
--- OUTSIDE RECORDS SUMMARY | 2024-06-16 00:24 | XMS_ITS | Encounter Summary ---
Author Organization [facility] Address [address] [place] [address] Care Team Providers Care Regulatory Scientist Name Role Phone Ayden Angulo MD Primary Care Provider Unava ilable Reason for Visit * Reason Onset Date Comments Medications Refill 05/27/2022 Encounter Details Date Type Department Care Team (Late st Contact Info) Description 05/27/2022 Refill [facility] Family Medicine [facility] [address] , [address] [place] [address] Ayden Angulo MD Medications Refill Social History [...] Pain. Daily Max: 2 Tablets 56 Tablet 05/28/2022 06/23/2022 documented in this encounter Miscellaneous Notes * Telephone Encounter - Birdie Wright RN - 05/28/2022 1114 EDT [facility] CONTROLLED MEDICATION REFILL Medication: HYDROcodone-aceteaminophen (NORCO) 10-325mg tablet (PRN) Medication, dose, directions verified: yes Pharmacy verified: yes Last office visit: 04/01/22 Next office visit: 06/16/22 Prescription due to be filled: yes, overdue Last urine drug screen: 02/07/21 Last VPMS: today Last CSA: 02/07/21 Tabbed same as previously ordered. TC out RG cover. * Telephone Encounter - Birdie Wright RN - 05/28/2022 1113 EDTFrom: Allie Small To: Office of Ayden Angulo MD Sent: 05/27/2022 13:19 EDT Subject: Medication Renewal Request Refills have been requested for the following medications: HYDROcodone-acetaminophen (NORCO) 10-325 mg tablet [Ayden Angulo MD] Preferred pharmacy: [id number] documented in this encounter Plan of Treatment Not on file documented as of this encounter Visit Diagnoses Not on filedocumented in this encounter Discontinued Medications Medication Sig Discontinue Reason Start Date End Da te HYDROcodone-acetaminophe n (NORCO) 10-325 mg tablet Take 1 Tablet by mouth every 6 hours as needed for up to 28 days for Pain. Daily Max: 2 Tablets Reorder 04/30/2022 05/27/2022 documented as of this encounter Care Teams Regulatory Scientist Relationship Specialty Start Date End Date Ayden Angulo MD PCP - General 07/28/19 01/28/23 documented as of this encounter
--- OUTSIDE RECORDS SUMMARY | 2024-06-16 00:24 | XMS_ITS | Encounter Summary ---
Author Organization [facility] Address [address] [place] [address] Care Team Providers Care Top Lifter Name Role Phone Ayden Angulo MD Primary Care Provider Unava ilable Reason for Referral * Consult (See Order Priority) - Closed Specialty Diagnoses / Procedures Referred By Susanne martínez Referred To Contact Otolaryngology Diagnoses Throat pain Ayden Angulo MD [facility] [address] [place] [address] Referral ID Status Reason Start Date Expiration Date V isits Requested Visits Authorized [id number] Closed Specialty Services Required 06/23/2022 1 1 Question Answer Reason for Request: Other Please specify: persistant pain in throat s/p eating a chip a few months ago. Reason for Visit * Reason Comments Anxiety Chronic Pain Encounter Details Date Type Department Care Team (Late st Contact Info) Description 06/23/2022 11:00 EDT Telemedicine 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 Daily Max: 2 Tablets 56 Tablet 08/20/2022 09/15/2022 HYDROcodone-acetaminophe n (NORCO) 10-325 mg tablet Take 1 Tablet by mouth every 6 hours as needed for up to 28 days for Pain. Daily Max: 2 Tablets 56 Tablet 07/23/2022 09/15/2022 HYDROcodone-acetaminophe n (NORCO) 10-325 mg tablet Take 1 Tablet by mouth every 6 hours as needed for up to 28 days for Pain. Daily Max: 2 Tablets 56 Tablet 06/25/2022 09/15/2022 documented in this encounter Progress Notes * Ayden Angulo MD - 06/23/2022 1100 EDT Primary Care Video Visit Assessment & Plan Diagnoses and all orders for this visit: LIDIA (generalized anxiety disorder) Comments: still an issue, not at point of wanting to change meds. finds she wakes up anxious. 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 she and i agreed chantix is not a great idea given her emotional instability. Depression with anxiety Comments: elects to not change meds now. will discuss with her therapist, maybe more frequent meetings needed. Other orders - HYDROcodone-acetaminophen (NORCO) 10-325 mg tablet - HYDROcodone-acetaminophen (NORCO) 10-325 mg tablet - HYDROcodone-acetaminophen (NORCO) 10-325 mg tablet 30 No follow-ups on file. Patient education was direct. Barriers were assessed and addressed as needed. I spent a total of 30 minutes on the date of this encounter meeting with the patient and reviewing documentation/coordinating care as described in the above note. Unless otherwise noted, no procedures were performed at the time of the visit. Carlene Kelley is a 41 y.o. female presenting with No chief complaint on file. HPI *throat Dizzy a lot Hits out of now where. Not present right now.. I usually sit down. Lasts five minutes. There since my stroke. 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 Maybe droopy at night Knee bothering me a few days a go, then hit it. Klutz behavior; Lots since having the stroke Anxiety- I have moments. Lots of panic attacks. Buying a double wide in the spring. Had stopped therapy for summer, now back. Data reviewed this visit: problem list/past medical history, current medications and allergies ROS - See HPI TELEMEDICINE VIDEO VISIT Today's visit was provided through telemedicine video conferencing: The location of the patient : Home The location of the provider: Office The following staff and their role did participate in today's encounter visit: Ayden Angulo MD Objective There were no vitals taken for this visit. Physical Exam Well seeming . Long discussion regarding her health status. Affect- somewhat blunted. Though talkative. 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 Do not exceed 20 lozenges per day. 03/25/2022 06/23/2022 citalopram (CELEXA) 20 mg tablet Take 20 mg by mouth daily. 04/03/2022 06/23/2022 HYDROcodone-acetaminoph en (NORCO) 10-325 mg tablet Take 1 Tablet by mouth every 6 hours as needed for up to 28 days for Pain. Daily Max: 2 Tablets Reorder 05/28/2022 06/23/2022 documented as of this encounter Care Teams Top Lifter Relationship Specialty Start Date End Date Ayden Angulo MD PCP - General 07/28/19 01/28/23 documented as of this encounter
--- OUTSIDE RECORDS SUMMARY | 2024-06-16 00:24 | XMS_ITS | Encounter Summary ---
Author Organization [facility] Address [address] [place] [address] Care Team Providers Care Protective Signal Repairer Name Role Phone Ayden Angulo MD Primary Care Provider Unava ilable Reason for Visit * Reason Onset Date Comments Medications Refill 07/30/2022 Lorazepam Encounter Details Date Type Department Care Team (Late st Contact Info) Description 07/30/2022 Refill [facility] Family Medicine [facility] [address] [facility], [address] [place] [address] Ayden Angulo MD Medications Refill (Lorazepam) Social History Tobacco Use Types Packs/Day Years [...] for Anxiety. Daily Max 1mg 30 Tablet 07/30/2022 09/03/2022 documented in this encounter Miscellaneous Notes * Telephone Encounter - Gage [place] MA - 07/30/2022 1033 EST [facility] CONTROLLED MEDICATION REFILL Medication: Lorazepam 0.5 mg tab Medication, dose, directions verified: 2 tabs PO bid PRN for anxiety. Pharmacy verified: [place], [place] Last office visit: 06/23/22 Next office visit: 09/04/22 Prescription due to be filled: Due Last urine drug screen: 02/07/21: DUE Last VPMS: Last fill 06/18/22 for #16 for 4 days. Last CSA: 02/07/21 DUE Pended for TC's review. documented in this encounter Plan of Treatment Not on file documented as of this encounter Visit Diagnoses Not on filedocumented in this encounter Discontinued Medications Medication Sig Discontinue Reason Start Date End Da te LORazepam (ATIVAN) 0.5 mg tablet Take 2 Tablets by mouth 2 times daily as needed for up to 30 days for Anxiety. Daily Max 2 mg Reorder 06/18/2022 07/30/2022 documented as of this encounter Care Teams Protective Signal Repairer Relationship Specialty Start Date End Date Ayden Angulo MD PCP - General 07/28/19 01/28/23 documented as of this encounter
--- OUTSIDE RECORDS SUMMARY | 2024-06-16 00:24 | XMS_ITS | Encounter Summary ---
Author Organization [facility] Address [address] [place] [address] Care Team Providers Care Medication Nurse Name Role Phone Ayden Angulo MD Primary Care Provider Mia Mcclendon DO Primary Care Provider + Javier Valenzuela RD Unavailable [phone] Reason for Visit * Reason Comments Medications Refill Encounter Details Date Type Department Care Team (Late st Contact Info) Description 12/29/2022 Refill [facility] Family Medicine [facility] [address], [facility] 2 [place], [place] [phone] Ayden Angulo MD Medications Refill Social History [...] exceed 20 lozenges per day. 144 Lozenge 12/29/2022 01/12/2023 documented in this encounter Miscellaneous Notes * Telephone Encounter - Javier Stapleton, RN - 12/29/2022 0834 EDT [facility] MEDICATION REFILL Medication: Nicotine lozenges Medication, dose, directions verified: yes Pharmacy verified: yes Last office visit: 12/22/22 Next office visit: none Rx pended for your review. documented in this encounter Plan of [...] Do not exceed 20 lozenges per day. 12/09/2022 12/29/2022 documented as of this encounter Care Teams Medication Nurse Relationship Specialty Start Date End Date Ayden Angulo MD PCP - General 07/28/19 01/28/23 Mia Alexander DO [address] [place] [phone] PCP - General Family Medicine - Primary Care 01/29/[address] [place] [phone] Survey Cad Technician (CDE) Diabetes Education 11/29/23 11/29/23 documented as of this encounter
--- OUTSIDE RECORDS SUMMARY | 2024-06-16 00:24 | XMS_ITS | Encounter Summary ---
Author Organization [facility] Address [address] [place] [address] Care Team Providers Care Shingle Weaver Name Role Phone Ayden Angulo MD Primary Care Provider Unava ilable Reason for Visit * Reason Comments Medications Refill Diclofenac Encounter Details Date Type Department Care Team (Late st Contact Info) Description 12/18/[address] [facility] Family Medicine [facility] [address], [address] [place] [address] Ayden Angulo MD Medications Refill (Diclofenac ) Social History Tobacco Use Types Packs/Day [...] Dispensed Refills Start Date End Da te diclofenac (VOLTAREN) 75 mg EC tablet Take 1 Tablet by mouth 2 times daily. 180 Tablet 3 12/21/2022 06/05/2024 documented in this encounter Miscellaneous Notes * Telephone Encounter - Pamela Patton MA - 12/21/2022 1559 EDT [facility] MEDICATION REFILL Medication: Diclofenac 75mg Medication, dose, directions verified: 1 tab 2x daily Pharmacy verified: [facility] Last office visit: 11/06/22(tele) Next office visit: 12/22/22 TC-pended per last rx. documented in this encounter Plan of Treatment Not on file documented as of this encounter Visit Diagnoses Not on filedocumented in this encounter Discontinued Medications Medication Sig Discontinue Reason Start Date End Da te diclofenac (VOLTAREN) 75 mg EC tablet Take 1 Tablet by mouth 2 times daily. 12/02/2021 12/21/2022 documented as of this encounter Care Teams Shingle Weaver Relationship Specialty Start Date End Date Ayden Angulo MD PCP - General 07/28/19 01/28/23 documented as of this encounter
--- OUTSIDE RECORDS SUMMARY | 2024-06-16 00:24 | XMS_ITS | Encounter Summary ---
Author Organization [facility] Address [address] [place] [address] Care Team Providers Care Vp Production Name Role Phone Mia Alexander Primary Care Provider + Javier Valenzuela RD Unavailable Reason for Visit * Reason Onset Date Comments Medications Refill 04/30/2023 Encounter Details Date Type Department Care Team (Late st Contact Info) Description 04/30/2023 Refill [facility] Family Medicine [address], [facility] 2 [place] [address] Wilver Garcias MD [address] [place] [address] 2 [place] [phone] Medications Refill Social History Tobacco [...] Anxiety. Daily Max: 1 mg 14 Tablet 05/05/2023 05/25/2023 documented in this encounter Miscellaneous Notes * Telephone Encounter - Flaco Baker MD - 05/05/2023 1817 EDT A 1 week prescription of the lorazepam was sent to the pharmacy It looks as though she is overdue for office visit follow-up for controlled medicines. She really should be seen soon. will defer to her PCP as far as scheduling this * Telephone Encounter - Stewart Giordano - 05/05/2023 1505 EDT Patient called to check on status. Has been out since Wednesday when she initially sent the request. Could this be sent to a covering provider? Please send to [facility] in [place], [place]. * Telephone Encounter - Pamela Patton MA - 05/05/2023 5285 EDT Controlled Medication Refill Request Medication and dose: Lorazepam 0.5mg Verified: Yes Pharmacy verified: Yes Last visit: 12/22/2022 Next visit: 06/02/2023 CSA: UTD UDS: UTD Date prescription due: today VPMS: Med: Lorazepam Date Last Filled: 03/31/23 Quantity: #20, 10 days AW-pended per last rx. * Telephone Encounter - Pamela Patton MA - 05/05/2023 8263 EDTFrom: Allie Samll To: Office of Wilver Garcias MD Sent: 04/30/2023 11:58 EDT Subject: Medication Renewal Request Refills have been requested for the following medications: LORazepam (ATIVAN) 0.5 mg tablet [Wilver Garcias] Preferred pharmacy: [id number] documented in this encounter Plan of [...] for Anxiety. Daily Max: 1 mg Reorder 03/31/2023 04/30/2023 documented as of this encounter Care Teams Vp Production Relationship Specialty Start Date End Date Mia Alexander DO [address] [place] [phone] PCP - General Family Medicine - Primary Care 01/29/[address] [place] [phone] Blind Eyeletter (CDE) Diabetes Education 11/29/23 11/29/23 documented as of this encounter
--- OUTSIDE RECORDS SUMMARY | 2024-06-16 00:24 | XMS_ITS | Encounter Summary ---
Author Organization [facility] Address [address] [place] [address] Care Team Providers Care Baggage And Mail Agent Name Role Phone Ayden Angulo MD Primary Care Provider Mia Mcclendon DO Primary Care Provider + Javier Valenzuela RD Unavailable [phone] Reason for Visit * Reason Onset Date Comments Virginia Line Attendant Message 06/27/2022 Encounter Details Date Type Department Care Team (Late st Contact Info) Description 06/27/2022 Telephone [facility] Family Medicine - [place] [address] [place] [address] Ken Small MD [address] [place] [phone] Virginia Line Attendant Message Social History Tobacco Use Types Packs/Day [...] Start Date End Da te nystatin (MYCOSTATIN) cream Apply 1 application topically 2 times daily for 14 days. 45 g 3 06/27/2022 07/11/2022 documented in this encounter Miscellaneous Notes * Telephone Encounter - Ken Small MD - 06/27/2022 0804 EDT Fungal infection under panus. Rx for nystatin cream sent. Use cream first, then powder on top. Callwith any issues. documented in this encounter Plan of Treatment Not on file documented as of this encounter Visit Diagnoses Not on filedocumented in this encounter Care Teams Baggage And Mail Agent Relationship Specialty Start Date End Date Ayden Angulo MD PCP - General 07/28/19 01/28/23 Mia Alexander DO [address] [place] [phone] PCP - General Family Medicine - Primary Care 01/29/[address] [place] [phone] Maintenance Shop Manager (CDE) Diabetes Education 11/29/23 11/29/23 documented as of this encounter
--- OUTSIDE RECORDS SUMMARY | 2024-06-16 00:24 | XMS_ITS | Encounter Summary ---
Author Organization [facility] Address [address] [place] [address] Care Team Providers Care Biztalk Administrator Name Role Phone Ayden Angulo MD Primary Care Provider Unava ilable Reason for Visit * Reason Comments Medications Refill Encounter Details Date Type Department Care Team (Late st Contact Info) Description 08/16/2022 Refill [facility] Family Medicine [facility] [address], [address] [place] [address] Ayden Angulo MD Medications Refill Social History [...] End Da te aspirin 81 mg EC tabletIndications:Cerebr ovascular accident (CVA), unspecified mechanism (HCC-CMS) TAKE ONE TABLET BY MOUTH ONE TIME DAILY 100 Tablet 4 08/17/2022 08/20/2023 documented in this encounter Miscellaneous Notes * Telephone Encounter - Priscilla Enriquez RN - 08/17/2022 0923 EST Medication(s) Requested: Aspirin EC 81mg Preferred Pharmacy: [facility] in [place], [place] Is patient out of medication? Unknown Last Refill Date: 100 tabs on 05/06/22 without refills Last Visit Date with Ordering Provider: 06/23/2022 Next Non-Acute Visit Date Scheduled with Care Team: Yes. on 09/04/2022 PRISCILLA ENRIQUEZ RN 08/17/2022 9:23 documented in this encounter Plan of Treatment Not on file documented as of this encounter Visit Diagnoses Diagnosis Cerebrovascular accident (CVA), unspecified mechanism (HCC-CMS)- Primary documented in this encounter Discontinued Medications Medication Sig Discontinue Reason Start Date End Da te aspirin 81 mg EC tabletIndications:Cerebro vascular accident (CVA), unspecified mechanism (HCC-CMS) TAKE ONE TABLET BY MOUTH ONE TIME DAILY 05/06/2022 08/17/2022 documented as of this encounter Care Teams Biztalk Administrator Relationship Specialty Start Date End Date Ayden Angulo MD PCP - General 07/28/19 01/28/23 documented as of this encounter
--- OUTSIDE RECORDS SUMMARY | 2024-06-16 00:24 | XMS_ITS | Encounter Summary ---
Author Organization [facility] Address [address] [place] [address] Care Team Providers Care Regional Account Manager Name Role Phone Mia Alexander DO Primary Care Provider + Reason for Visit * Reason Onset Date Comments Medications Refill 05/25/2023 Encounter Details Date Type Department Care Team (Late st Contact Info) Description 05/25/2023 Telephone [facility] - [facility] Family Medicine [address], [facility] [address] [place] [address] Mia Alexander DO [address] [place] [address] [address] [place] [phone] Medications Refill Social History Tobacco [...] Encounter - Pamela Patton MA - 05/25/2023 1006 EDT Creating new TE as unable to pend in signed TE. * Telephone Encounter - Deloris Rod - 05/25/2023 0956 EDT Pt requesting refill of Lorazepam. [place], [place] documented in this encounter Plan of Treatment Not on file documented as of this encounter Visit Diagnoses Not on filedocumented in this encounter Care Teams Regional Account Manager Relationship Specialty Start Date End Date Mia Alexander DO [address] [place] [address] [phone] PCP - General Family Medicine - Primary Care 01/29/23 documented as of this encounter
--- OUTSIDE RECORDS SUMMARY | 2024-06-16 00:24 | XMS_ITS | Encounter Summary ---
Author Organization [facility] Address [address] [place] [address] Care Team Providers Care Hot Plate Press Operator Name Role Phone Ayden Angulo MD Primary Care Provider Unava ilable Reason for Visit * Reason Onset Date Comments Chronic Pain 12/22/2022 Appointment Related 12/22/2022 Encounter Details Date Type Department Care Team (Late st Contact Info) Description 12/22/2022 Telephone [facility] Family Medicine [facility] [address], [address] [place] [address] Ayden Angulo MD Chronic Pain; Appointment Related Social History Tobacco Use [...] encounter Miscellaneous Notes * Telephone Encounter - Pardeep Preeti - 12/22/2022 0826 EDT Allie called yesterday to report she was sick and changed apt to video. Pre TC he needs to see pt in office today or she can't get her medications renewed. I called Alliejustine apt to OV and she agreed to come in. We will use negative pressure room. * Telephone Encounter - Debbie Linda LPN - 12/22/2022 0813 EDT See TE from TC. This needs to be OFFICE VISIT. See TE dated 12/05/2022, it was made very clear by TCthat her continuing on her controlled medication is dependent on her coming in to her appointment. She is out of compliance with state prescribing rules at this point, and we cannot continue to prescribe controlled substances for her without having her come into the office to complete CSA, UDS discussion of risks vs benefits of medication, etc. Please alert pt that if she is unable to come in to office today then we are unable to continue with her controlled substance Rxs, as was relayed to herin TE dated 12/05/2022. * Telephone Encounter - Ayden Angulo MD - 12/22/2022 0802 EDT This patient needs a CSA in person visit. She is scheduled for a video visit today. This needs to be changed to in person or rescheduled as an in person visit as it will soon be two years since we did the legally required contract and screening. Please call. documented in this encounter Plan of Treatment Not on file documented as of this encounter Visit Diagnoses Not on filedocumented in this encounter Care Teams Hot Plate Press Operator Relationship Specialty Start Date End Date Ayden Angulo MD PCP - General 07/28/19 01/28/23 documented as of this encounter
--- OUTSIDE RECORDS SUMMARY | 2024-06-16 00:24 | XMS_ITS | Encounter Summary ---
Author Organization [facility] Address [address] [place] [address] Care Team Providers Care Aluminum Molder Name Role Phone Ayden Angulo MD Primary Care Provider Unava ilable Reason for Visit * Reason Comments Medications Refill Encounter Details Date Type Department Care Team (Late st Contact Info) Description 08/04/2022 Refill [facility] Family Medicine [facility] [address], [address] [place] [address] Ayden Angulo MD Medications Refill Social History [...] MOUTH ONE TIME DAILY 90 Capsule 3 08/04/2022 07/26/2023 documented in this encounter Miscellaneous Notes * Telephone Encounter - Pamela Patton MA - 08/04/2022 1122 EST [facility] MEDICATION REFILL Medication: Omeprazole 20mg Medication, dose, directions verified: 1 tab daily Pharmacy verified: [facility] Last office visit: 06/23/22 Next office visit: 09/04/22 TC-pended per last rx. documented in this encounter Plan of Treatment Not on file documented as of this encounter Visit Diagnoses Not on filedocumented in this encounter Discontinued Medications Medication Sig Discontinue Reason Start Date End Da te omeprazole (PRILOSEC) 20 mg capsule TAKE ONE CAPSULE BY MOUTH ONE TIME DAILY 05/06/2022 08/04/2022 documented as of this encounter Care Teams Aluminum Molder Relationship Specialty Start Date End Date Ayden Angulo MD PCP - General 07/28/19 01/28/23 documented as of this encounter
--- OUTSIDE RECORDS SUMMARY | 2024-06-16 00:24 | XMS_ITS | Encounter Summary ---
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 short term bp in office followup. will call if readings still high in the interim Other orders - amLODIPine (NORVASC) 5 mg tablet No follow-ups on file. Patient education was direct. Barriers were assessed and addressed as needed. I spent a total of 30 minutes on the date of this encounter meeting with the patient and reviewing documentation/coordinating care as described in the above note. Unless otherwise noted, no procedures were performed at the time of the visit. Carlene Kelley is a 42 y.o. female presenting with No chief complaint on file. HPI Headaches now, more days than not. - muscle relaxer for it. Scary high numbers. Irregular heartbeat If I move my head it I , sometimes Ican move it In place. Visioin. Off since 2014- My left breat hurts so bad.. I had a period and it never ot madan. Skin burning. I sweat On cold days. My knees hurt for no reason Data reviewed this visit: problem list/past medical history, current medications and allergies ROS - See HPI TELEMEDICINE VIDEO VISIT Today's visit was provided through telemedicine video conferencing: The location of the patient : Home The location of the provider: home The following staff and their role did participate in today's encounter visit: Ayden Angulo MD Objective There were no vitals taken for this visit. Physical Exam Well seeming documented in this encounter Plan of Treatment Not on file documented as of this encounter Visit Diagnoses Diagnosis Connective tissue disease overlap syndrome (HCC-CMS)- Primary Other specified diffuse disease of connective tissue Depression with anxiety Dysthymic disorder Chronic prescription opiate use Cerebrovascular accident (CVA), unspecified mechanism (HCC-CMS) documented in this encounter Care Teams Excel Developer Relationship Specialty Start Date End Date Ayden Angulo MD PCP - General 07/28/19 01/28/23 documented as of this encounter
--- OUTSIDE RECORDS SUMMARY | 2024-06-16 00:24 | XMS_ITS | Encounter Summary ---
Author Organization [facility] Address [address] [place] [address] Care Team Providers Care Blow Up Operator Name Role Phone Ayden Angulo MD Primary Care Provider Unava ilable Reason for Visit * Reason Onset Date Comments Medication Problem 10/01/2022 Encounter Details Date Type Department Care Team (Late st Contact Info) Description 10/01/2022 Telephone [facility] [address] , [facility] 2 [place] [address] Ayden Angulo MD Medication Problem Social History Tobacco Use Types [...] breasts and groin folds 30 g 3 10/01/2022 05/24/2024 documented in this encounter Miscellaneous Notes * Telephone Encounter - Ayden Angulo MD - 10/01/2022 1541 EST resent documented in this encounter Plan of Treatment Not on file documented as of this encounter Visit Diagnoses Not on filedocumented in this encounter Discontinued Medications Medication Sig Discontinue Reason Start Date End Da te nystatin (MYCOSTATIN) powder APPLY 2 TIMES DAILY Reorder 09/28/2022 10/01/2022 documented as of this encounter Care Teams Blow Up Operator Relationship Specialty Start Date End Date Ayden Angulo MD PCP - General 07/28/19 01/28/23 documented as of this encounter
--- OUTSIDE RECORDS SUMMARY | 2024-06-16 00:24 | XMS_ITS | Encounter Summary ---
Author Organization [facility] Address [address] [place] [address] Care Team Providers Care Explosive Operator Fuse Name Role Phone Ayden Angulo MD Primary Care Provider Unava ilable Reason for Visit * Reason Onset Date Comments Medications Refill 01/15/2023 Encounter Details Date Type Department Care Team (Late st Contact Info) Description 01/15/2023 Refill [facility] Family Medicine [facility] [address] , [address] [place] [address] Ayden Angulo MD Medications Refill Social History [...] Telephone Encounter - Pamela Patton MA - 01/18/2023 1519 EDT Med was sent in by BS 01/15/23, no refill needed at this time. * Telephone Encounter - Starr Bro MA - 01/18/2023 0920 EDT [facility] MEDICATION REFILL Medication: Methocarbamol 750 mg Medication, dose, directions verified: Take 1 tab po every 6 hours prn for muscle spasms. Pharmacy verified: [facility] [place], [place] Last office visit: 12/22/22 Next office visit: No appt scheduled. BS-Pended as last rx. documented in this encounter Plan of Treatment Not on file documented as of this encounter Visit Diagnoses Not on filedocumented in this encounter Care Teams Explosive Operator Fuse Relationship Specialty Start Date End Date Ayden Angulo MD PCP - General 07/28/19 01/28/23 documented as of this encounter
--- OUTSIDE RECORDS SUMMARY | 2024-06-16 00:24 | XMS_ITS | Encounter Summary ---
Author Organization [facility] Address [address] [place] [address] Care Team Providers Care Tax Auditor Name Role Phone Mia Alexander Primary Care Provider + Javier Valenzuela RD Unavailable [phone] Reason for Visit * Reason Comments Medications Refill Encounter Details Date Type Department Care Team (Late st Contact Info) Description 04/11/2023 Refill [facility] Family Medicine [facility] [address], [address] [place], [place] [id number] Ayden Angulo MD Medications Refill Social History [...] MOUTH ONE TIME DAILY 90 Capsule 3 04/14/2023 05/18/2024 documented in this encounter Miscellaneous Notes * Telephone Encounter - Starr Bro MA - 04/12/2023 0926 EDT Medication Refill Request Medication and dose: Fluoxetine 40 mg Verified: Yes Pharmacy verified: Yes Last visit: 12/22/2022 Next visit: 06/02/2023 AW-Pended as last rx. documented in this encounter Plan of Treatment Not on file documented as of this encounter Visit Diagnoses Not on filedocumented in this encounter Discontinued Medications Medication Sig Discontinue Reason Start Date End Da te FLUoxetine (PROZAC) 40 mg capsule TAKE ONE CAPSULE BY MOUTH ONE TIME DAILY 04/07/2022 04/12/2023 documented as of this encounter Care Teams Tax Auditor Relationship Specialty Start Date End Date Mia Alexander DO [address] [place] [phone] PCP - General Family Medicine - Primary Care 01/29/[address] [place] [id number] Tank Pumper (CDE) Diabetes Education 11/29/23 11/29/23 documented as of this encounter
--- OUTSIDE RECORDS SUMMARY | 2024-06-16 00:24 | XMS_ITS | Encounter Summary ---
Author Organization [facility] Address [address] [place] [address] Care Team Providers Care Pattern Grader Name Role Phone Ayden Angulo MD Primary Care Provider Unava ilable Reason for Visit * Reason Onset Date Comments Thrush 12/16/2022 Cough 12/16/2022 Nasal Congestion 12/16/2022 Sore Throat 12/16/2022 Encounter Details Date Type Department Care Team (Late st Contact Info) Description 12/16/2022 Telephone [facility] [address] , [address] [place], [place] [phone] Ayden Angulo MD Thrush; Cough; Nasal Congestion; Sore Throat Social History Tobacco Use Types Packs/Day Years [...] Telephone Encounter - Mitali Sena RN - 12/17/2022 1238 EDT Pt notified per TC note and verbalized understanding. * Telephone Encounter - Ayden Angulo MD - 12/17/2022 1213 EDT Should go to or to the hospital in [place] to be seen. They can handle all of this * Telephone Encounter - Mitali Sena RN - 12/17/2022 1048 EDT [facility] Primary Care SBAR Nurse Triage call note: Situation: Fever 101-102F, productive cough with thick green sputum, SOB with activity, sore throat, nasal congestion, runny nose, headache, fatigue, diarrhea. O2 SAT 92%, if pt coughs it goes up to 94-96%, pt states her baseline is 98%. Pt denies n/v. Pt reports SXS that are the same as when she has had thrush in the past. White, yucky, things taste bad in mouth. Spots are sore. Background: Respiratory SXS started 12/12, negative Covid test 12/14. Mouth SXS started 2 days ago. Assessment: Multiple SXS Recommendation: Pt advised to test again for Covid today. Pt advised to increase fluids, rest, humidity. Pt aware to go to ED for severe SOB and for an O2 SAT consistently at or below 92%. Pt aware she has an appt on 12/22 with TC. Pt advised that if she would like to be seen sooner to go to [facility] due to no opening here at office and heading into the weekend. TC-can we address the thrush SXS? * Telephone Encounter - Preeti Roberto - 12/16/2022 1548 EDT Patient reports oral thrush on top of cough, congestion & sore throat since 12/12. The family has been passing a raspatory illness for 3 wk's. Allie reports she tested negative for Covid on 12/14. Last time she had thrush we prescribed an oral mouth wash, she does not want to use that again she said. What would TC advise she do? documented in this encounter Plan of Treatment Not on file documented as of this encounter Visit Diagnoses Not on filedocumented in this encounter Care Teams Pattern Grader Relationship Specialty Start Date End Date Ayden Angulo MD PCP - General 07/28/19 01/28/23 documented as of this encounter
--- OUTSIDE RECORDS SUMMARY | 2024-06-16 00:24 | XMS_ITS | Encounter Summary ---
Author Organization [facility] Address [address] [place] [address] Care Team Providers Care Service Line Layer Name Role Phone Mia Alexander Primary Care Provider + Reason for Visit * Reason Onset Date Comments Medications Refill 04/26/2023 Encounter Details Date Type Department Care Team (Late st Contact Info) Description 04/26/[address] [facility] Family Medicine [facility] [address] [facility] 2 [place] [address] Wilver Garcias MD [address] [place] [address] [address] [place] [phone] Medications Refill Social History Tobacco [...] Pain. Daily Max: 2 Tablets 56 Tablet 04/28/2023 05/21/2023 documented in this encounter Miscellaneous Notes * Telephone Encounter - Pamela Patton MA - 04/27/2023 0942 EDT Controlled Medication Refill Request Medication and dose: Ambrose 10-325mg Verified: Yes Pharmacy verified: Yes Last visit: 12/22/2022 Next visit: 06/02/2023 CSA: UTD UDS: UTD Date prescription due: 04/28/23 [facility]MS: Med: Ambrose Date Last Filled: 03/31/23 Quantity: #56, 28 days RG-to covering provider, pended per last rx to be filled tomorrow. * Telephone Encounter - Preeti Roberto - 04/27/2023 0940 EDT Allie calling to check status of refill. I informed her a covering provider will take a look and send in as soon as we can. * Telephone Encounter - Pam Giordano - 04/27/2023 0815 EDT Patient called again checking on the status of the prescription. * Telephone Encounter - Smiley Cedeno - 04/26/2023 1538 EDT Patient called to check on the status as she is out of medication. Reviewed refill policy. documented in this encounter Plan of Treatment Not on file documented as of this encounter Visit Diagnoses Not on filedocumented in this encounter Discontinued Medications Medication Sig Discontinue Reason Start Date End Da te HYDROcodone-acetaminophe n (NORCO) 10-325 mg tablet Take 1 Tablet by mouth every 6 hours as needed for up to 28 days for Pain. Daily Max: 2 Tablets Reorder 03/31/2023 04/26/2023 documented as of this encounter Care Teams Service Line Layer Relationship Specialty Start Date End Date Mia Alexander DO [address] [place] [phone] PCP - General Family Medicine - Primary Care 01/29/23 documented as of this encounter
--- OUTSIDE RECORDS SUMMARY | 2024-06-16 00:24 | XMS_ITS | Encounter Summary ---
Author Organization [facility] Address [address] [place] [address] Care Team Providers Care Butter Production Supervisor Name Role Phone Ayden Angulo MD Primary Care Provider Unava ilable Reason for Visit * Reason Onset Date Comments Medications Refill 09/03/2022 Encounter Details Date Type Department Care Team (Late st Contact Info) Description 09/03/2022 Refill [facility] Family Medicine [facility] [address] , [address] [place] [address] Ayden Angulo MD Medications Refill Social History [...] for Anxiety. Daily Max 1mg 30 Tablet 09/03/2022 10/15/2022 documented in this encounter Miscellaneous Notes * Telephone Encounter - Pamela Patton MA - 09/03/2022 1328 EST [facility] MEDICATION REFILL Medication: Lorazepam 0.5mg Medication, dose, directions verified: 1 tab up to 2x daily PRN for anxiety Pharmacy verified: [place], [place] Last office visit: 06/23/22 (tele) Next office visit: 10/01/22 Per [facility] last filled 07/30 for #30 tabs, due for fill. TC-pended per last rx. * Telephone Encounter - Pamela Patton MA - 09/03/2022 1327 ESTFrom: Allie Small To: Office of Ayden Angulo MD Sent: 09/03/2022 11:11 EST Subject: Medication Renewal Request Refills have been requested for the following medications: LORazepam (ATIVAN) 0.5 mg tablet [Ayden Angulo] Preferred pharmacy: [id number] documented in this encounter Plan of Treatment Not on file documented as of this encounter Visit Diagnoses Not on filedocumented in this encounter Discontinued Medications Medication Sig Discontinue Reason Start Date End Da te LORazepam (ATIVAN) 0.5 mg tablet Take 1 Tablets by mouth up to 2 times daily as needed for up to 30 days for Anxiety. Daily Max 1mg Reorder 07/30/2022 09/03/2022 documented as of this encounter Care Teams Butter Production Supervisor Relationship Specialty Start Date End Date Ayden Angulo MD PCP - General 07/28/19 01/28/23 documented as of this encounter
--- OUTSIDE RECORDS SUMMARY | 2024-06-16 00:24 | XMS_ITS | Encounter Summary ---
Author Organization [facility] Address [address] [place] [address] Care Team Providers Care Innovation Analyst Name Role Phone Ayden Angulo MD Primary Care Provider Unava ilable Reason for Visit * Reason Comments Medications Refill Encounter Details Date Type Department Care Team (Late st Contact Info) Description 01/12/2023 Refill [facility] Family Medicine [facility] [address], [address] [place] [address] Ayden Angulo MD Medications Refill Social History [...] on filedocumented in this encounter Care Teams Innovation Analyst Relationship Specialty Start Date End Date Ayden Angulo MD PCP - General 07/28/19 01/28/23 documented as of this encounter
--- OUTSIDE RECORDS SUMMARY | 2024-06-16 00:24 | XMS_ITS | Encounter Summary ---
Author Organization [facility] Address [address] [place] [address] Care Team Providers Care Cone Operator Name Role Phone Ayden Angulo MD Primary Care Provider Unava ilable Reason for Visit * Reason Onset Date Comments Medications Refill 09/15/2022 Pt calling ne eds refill on a medication she only has 2 left is hoping to get this refilled soon Encounter Details Date Type Department Care Team (Late st Contact Info) Description 09/15/2022 Refill [facility] Family Medicine [facility] [address] [place] [address] Ayden Angulo MD Medications Refill (Pt calling needs refill on a medication she only has 2 left is hoping to get this refilled soon ) Social History Tobacco Use Types Packs/Day [...] Pain. Daily Max: 2 Tablets 56 Tablet 09/15/2022 12/08/2022 HYDROcodone-acetaminophe n (NORCO) 10-325 mg tablet Take 1 Tablet by mouth every 6 hours as needed for up to 28 days for Pain. Daily Max: 2 Tablets 56 Tablet 10/13/2022 12/08/2022 HYDROcodone-acetaminophe n (NORCO) 10-325 mg tablet Take 1 Tablet by mouth every 6 hours as needed for up to 28 days for Pain. Daily Max: 2 Tablets 56 Tablet 11/10/2022 12/05/2022 documented in this encounter Miscellaneous Notes * Telephone Encounter - Starr Bro MA - 09/15/2022 1526 EST [facility] CONTROLLED MEDICATION REFILL Medication: Hydrocodone-aceteminophen 10-325 mg Medication, dose, directions verified: Take 1 tab po every 6 hours prn for up to 28 days for pain. Daily max: 2 tabs. Pharmacy verified: [facility], [place], [place] Last office visit: 06/23/22 Next office visit: 10/01/22 Prescription due to be filled: 09/17/22 Last urine drug screen: Due at next OV. Last VPMS: 08/20/22 Last CSA: Due at next OV. [facility] CONTROLLED MEDICATION REFILL Medication: Hydrocodone-aceteminophen 10-325 mg Medication, dose, directions verified: Take 1 tab po every 6 hours prn for up to 28 days for pain. Daily max: 2 tabs. Prescription due to be filled: 10/15/22 [facility] CONTROLLED MEDICATION REFILL Medication: Hydrocodone-aceteminophen 10-325 mg Medication, dose, directions verified: Take 1 tab po every 6 hours prn for up to 28 days for pain. Daily max: 2 tabs. Prescription due to be filled: 11/12/22 * Telephone Encounter - Ami Avilez - 09/15/2022 1041 EST Pt calling needs refill on her hydrocodone sent to [facility] in [place] is just about out ofthis medication documented in this encounter Plan of Treatment Not on file documented as of this encounter Visit Diagnoses Not on filedocumented in this encounter Discontinued Medications Medication Sig Discontinue Reason Start Date End Da te HYDROcodone-acetaminophe n (NORCO) 10-325 mg tablet Take 1 Tablet by mouth every 6 hours as needed for up to 28 days for Pain. Daily Max: 2 Tablets Reorder 08/20/2022 09/15/2022 HYDROcodone-acetaminophe n (NORCO) 10-325 mg tablet Take 1 Tablet by mouth every 6 hours as needed for up to 28 days for Pain. Daily Max: 2 Tablets Reorder 06/25/2022 09/15/2022 HYDROcodone-acetaminophe n (NORCO) 10-325 mg tablet Take 1 Tablet by mouth every 6 hours as needed for up to 28 days for Pain. Daily Max: 2 Tablets Reorder 07/23/2022 09/15/2022 documented as of this encounter Care Teams Cone Operator Relationship Specialty Start Date End Date Ayden Angulo MD PCP - General 07/28/19 01/28/23 documented as of this encounter
--- OUTSIDE RECORDS SUMMARY | 2024-06-16 00:25 | XMS_ITS | Encounter Summary ---
Author Organization [facility] Address [address] [place] [address] Care Team Providers Care Helper/Driver Name Role Phone Ayden Angulo MD Primary Care Provider Unava ilable Reason for Visit * Reason Onset Date Comments Medications Refill 02/06/2022 Medications Refill 02/26/2022 Encounter Details Date Type Department Care Team (Late st Contact Info) Description 02/06/2022 Refill [facility] Family Medicine [facility] [address] [place] [address] Ayden Angulo MD Medications Refill; Medications Refill Social History Tobacco Use Types [...] on filedocumented in this encounter Care Teams Helper/Driver Relationship Specialty Start Date End Date Ayden Angulo MD PCP - General 07/28/19 01/28/23 documented as of this encounter
--- OUTSIDE RECORDS SUMMARY | 2024-06-16 00:25 | XMS_ITS | Encounter Summary ---
Author Organization [facility] Address [address] [place] [address] Care Team Providers Care Physiology Teacher Name Role Phone Ayden Angulo MD Primary Care Provider Unava ilable Reason for Visit * Reason Onset Date Comments Medications Refill 03/09/2022 Encounter Details Date Type Department Care Team (Late st Contact Info) Description 03/09/2022 Refill [facility] Family Medicine [facility] [address] [place] [address] Ayden Angulo MD Medications Refill Social History [...] Pain. Daily Max: 2 Tablets 56 Tablet 03/09/2022 03/31/2022 documented in this encounter Miscellaneous Notes * Telephone Encounter - Debbie Linda LPN - 03/09/2022 9764 EDT [facility] CONTROLLED MEDICATION REFILL Medication: hydrocodone Medication, dose, directions verified: yes Pharmacy verified: yes Last office visit: 03/04/2022 Next office visit: 03/11/2022 Prescription due to be filled: 03/09/2022 Last urine drug screen: Due at next OV Last VPMS: 03/09/2022 -Per VPMS pt last filled medication on 02/09/2022 for 28d supply (#56 tabs) with no refills. Last CSA: Due at next OV documented in this encounter Plan of Treatment Not on file documented as of this encounter Visit Diagnoses Not on filedocumented in this encounter Discontinued Medications Medication Sig Discontinue Reason Start Date End Da te HYDROcodone-acetaminophe n (NORCO) 10-325 mg tablet Take 1 Tablet by mouth every 6 hours as needed for up to 28 days for Pain. Daily Max: 2 Tablets 11/17/2021 03/09/2022 HYDROcodone-acetaminophe n (NORCO) 10-325 mg tablet Take 1 Tablet by mouth every 6 hours as needed for up to 28 days for Pain. Daily Max: 2 Tablets 10/20/2021 03/09/2022 HYDROcodone-acetaminophe n (NORCO) 10-325 mg tablet Take 1 Tablet by mouth every 6 hours as needed for up to 28 days for Pain. Daily Max: 2 Tablets Reorder 02/09/2022 03/09/2022 documented as of this encounter Care Teams Physiology Teacher Relationship Specialty Start Date End Date Ayden Angluo MD PCP - General 07/28/19 01/28/23 documented as of this encounter
--- OUTSIDE RECORDS SUMMARY | 2024-06-16 00:25 | XMS_ITS | Encounter Summary ---
Author Organization [facility] Address [address] [place] [address] Care Team Providers Care Last Putter Away Name Role Phone Ayden Angulo MD Primary Care Provider Unava ilable Reason for Visit * Reason Onset Date Comments Thrush 03/01/2022 Encounter Details Date Type Department Care Team (Late st Contact Info) Description 03/01/2022 Telephone [facility] - [address] [id number] Wale García MD [address] [place] [phone] Thrush Social History Tobacco Use Types Packs/Day Years [...] Dispensed Refills Start Date End Da te fluconazole (DIFLUCAN) 150 mg tablet 1 tab po now, repeat in 72hrs 2 Tablet 03/02/2022 12/22/2022 nystatin (MYCOSTATIN) 100,000 unit/mL suspension Take 5 mL by mouth 4 times daily. 240 mL 03/01/2022 03/02/2022 documented in this encounter Miscellaneous Notes * Telephone Encounter - Daylin Guy RN - 03/02/2022 1550 EDT Patient notified. * Addendum Note - Lily Murguia PA-C - 03/02/2022 1539 EDTAddended by: LILY MURGUIA on: 03/02/2022 15:39 Modules accepted: Orders * Telephone Encounter - Lily Murguia PA-C - 03/02/2022 1538 EDT Sent in oral med for her to try * Telephone Encounter - Daylin Guy RN - 03/02/2022 1306 EDT To JG as TC is out. * Telephone Encounter - Smiley Cedeno - 03/02/2022 1149 EDT Patient is wondering if a different prescription can be sent as it makes her vomit. * Telephone Encounter - Wale García MD - 03/01/2022 1314 EDT Allie calls the operations supervisor provider. She is currently taking clindamycin for a dental infection, almost to the end of the script. She notes that group home through the med she developed a sore throat and then noted a white coating over tongue with red bumps on sides of tongue. She developed a burning sensation in that area and her taste is diminished. She noticed this Wednesday and was waiting for Wednesday to discuss with PCP but symptoms are worsening. The last on abx, the same occurred and she treated it (a pill that time). She would like to try swich and swallow this time around. Nystatin solution sent in to [facility] in [place]. Wale García MD 03/01/2022 13:20 documented in this encounter Plan of Treatment Not on file documented as of this encounter Visit Diagnoses Not on filedocumented in this encounter Discontinued Medications Medication Sig Discontinue Reason Start Date End Da te nystatin (MYCOSTATIN) 100,000 unit/mL suspension Take 5 mL by mouth 4 times daily. Alternate therapy 03/01/2022 03/02/2022 documented as of this encounter Care Teams Last Putter Away Relationship Specialty Start Date End Date Ayden Angulo MD PCP - General 07/28/19 01/28/23 documented as of this encounter
--- OUTSIDE RECORDS SUMMARY | 2024-06-16 00:25 | XMS_ITS | Encounter Summary ---
Author Organization [facility] Address [address] [place] [address] Care Team Providers Care Extracting Machine Operator Name Role Phone Ayden Angulo MD Primary Care Provider Unava ilable Reason for Visit * Reason Onset Date Comments Art Educator Message 03/28/2022 UTI Encounter Details Date Type Department Care Team (Late st Contact Info) Description 03/28/2022 Telephone [facility] Family Medicine [address], [facility] [address] [place] [address] Wilver Garcias MD [address] [place] [address] [address] [place] [phone] Art Educator Message (UTI) Social History Tobacco Use Types Packs/Day Years [...] APPLY 2 TIMES DAILY 30 g 1 03/28/2022 09/25/2022 documented in this encounter Miscellaneous Notes * Telephone Encounter - Wilver Garcias MD - 03/28/2022 1120 EDT Yeast infection under my stomach, has gotten worse in the last 24 hours; requesting some nystatinsent to osco. Rx sent. documented in this encounter Plan of Treatment Not on file documented as of this encounter Visit Diagnoses Not on filedocumented in this encounter Discontinued Medications Medication Sig Discontinue Reason Start Date End Da te nystatin (MYCOSTATIN) powder APPLY 2 TIMES DAILY Reorder 12/15/2020 03/28/2022 documented as of this encounter Care Teams Extracting Machine Operator Relationship Specialty Start Date End Date Ayden Angulo MD PCP - General 07/28/19 01/28/23 documented as of this encounter
--- OUTSIDE RECORDS SUMMARY | 2024-06-16 00:25 | XMS_ITS | Encounter Summary ---
Author Organization [facility] Address [address] [place] [address] Care Team Providers Care Joint Finisher Name Role Phone Ayden Angulo MD Primary Care Provider Unava ilable Reason for Visit * Reason Onset Date Comments Medications Refill 03/25/2022 Encounter Details Date Type Department Care Team (Late st Contact Info) Description 03/25/2022 Refill [facility] Medicine [facility] [address] [place] [address] Ayden Angulo MD Medications Refill Social History [...] exceed 20 lozenges per day. 144 Lozenge 2 03/25/2022 10/20/2022 documented in this encounter Miscellaneous Notes * Telephone Encounter - Priscilla Milton RN - 03/25/2022 1420 EDT Refill request for refill on Nicotine lozenge Last ordered 01/20/2022 JAMEL 03/11/2022 NOV 04/01/2022 Dosage/directions verified documented in this encounter Plan of Treatment Not on file documented as of this encounter Visit Diagnoses Not on filedocumented in this encounter Care Teams Joint Finisher Relationship Specialty Start Date End Date Ayden Angulo MD PCP - General 07/28/19 01/28/23 documented as of this encounter
--- OUTSIDE RECORDS SUMMARY | 2024-06-16 00:25 | XMS_ITS | Encounter Summary ---
Author Organization [facility] Address [address] [place] [address] Care Team Providers Care Community Health Director Name Role Phone Ayden Angulo MD Primary Care Provider Unava ilable Reason for Visit * Reason Onset Date Comments Coordination Of Care 07/22/2021 Encounter Details Date Type Department Care Team (Late st Contact Info) Description 07/22/2021 Telephone [facility] [address], [address] [place] [address] Cht Property Coordinator, [facility] Coordination Of Care Social History Tobacco Use Types Packs/Day Years [...] encounter Miscellaneous Notes * Telephone Encounter - Kathy Padilla - 07/22/2021 1357 EDT CHT called pt and informed her medicaid will pay for her teeth to come out but do not pay to replace them. CHT offered to try to [place] dental funds if she is denied her teeth getting pulled. documented in this encounter Plan of Treatment Not on file documented as of this encounter Visit Diagnoses Not on filedocumented in this encounter Care Teams Community Health Director Relationship Specialty Start Date End Date Ayden Angulo MD PCP - General 07/28/19 01/28/23 documented as of this encounter
--- OUTSIDE RECORDS SUMMARY | 2024-06-16 00:25 | XMS_ITS | Encounter Summary ---
Author Organization [facility] Address [address] [place] [address] Care Team Providers Care Cable Mock Up Assembler Name Role Phone Ayden Busch MD Primary Care Provider Unava ilable Reason for Visit * Reason Onset Date Comments Sinusitis 09/26/2021 Continuing sinus sx's reported Appointment Related 09/26/2021 Labs Only 09/26/2021 Encounter Details Date Type Department Care Team (Late st Contact Info) Description 09/26/2021 Telephone [facility] [address] , [facility] [address] [place], [place] [address] Ayden Busch MD Sinusitis (Continuing sinus sx's reported); Appointment Related; Labs Only Social History Tobacco Use Types Packs/Day Years [...] Dispensed Refills Start Date End Da te cefpodoxime (VANTIN) 200 mg tablet Take 1 Tablet by mouth every 12 hours for 7 days. 14 Tablet 10/07/2021 10/14/2021 amoxicillin-clavulanate (AUGMENTIN) 875-125 mg per tablet Take 1 Tablet by mouth 2 times daily for 10 days. 20 Tablet 09/26/2021 10/06/2021 documented in this encounter Miscellaneous Notes * Telephone Encounter - Daylin Guy RN - 10/07/2021 1318 EST Patient notified. * Addendum Note - Ayden Busch MD - 10/07/2021 1228 ESTAddended by: AYDEN BUSCH on: 10/07/2021 12:28 Modules accepted: Orders * Telephone Encounter - Ayden Busch MD - 10/07/2021 1228 EST Call. New med called in. * Telephone Encounter - Daylin Guy RN - 10/07/2021 1012 EST Would you like to try an alternative? * Telephone Encounter - Rosemarie Jones - 10/07/2021 0944 EST Pt called, says she F*cked up and only took 2 days of the antibiotics as it gave her an upset stomach and she began to feel better otherwise, they got thrown out and now her symptoms are back - please advise * Telephone Encounter - Mitali Sena RN - 09/26/2021 1530 EST Pt notified per TC note and verbalized understanding * Telephone Encounter - Ayden Busch MD - 09/26/2021 1503 EST Call. Will try a course of antibiotics. If not gaining in next week, I do want to see her. * Telephone Encounter - Mitali Sena RN - 09/26/2021 1234 EST See 09/02 TE, pt called in with initial SXS. Pt reports a productive and painful cough with thick green sputum that is nasty tasting. SOB withactivity, on/off sore throat, congestion, fatigue, O2 95%. Pt denies fever, headaches. Pt took a home Covid test, negative. Pt advised to get a PCR, pt states she doesn't think she has Covid, insteadshe thinks she may have bronchitis. * Telephone Encounter - Preeti Roberto - 09/26/2021 1023 EST Patient calling to report she has been sick since before Dana time. She claims she was tested for covid but I don't see any results. She reports a productive cough, green mucus and her chest feels sore. NOV is 10/14 with TC. She had a stroke a couple yrs back, she can't drive which makes getting around for her very difficult. She reports her O2 sat 96-97%, states it feels like her chest is not clearing, her taste & smell have come back. She tried OTC Mucinex but no relief. Advise. documented in this encounter Plan of Treatment Not on file documented as of this encounter Visit Diagnoses Not on filedocumented in this encounter Discontinued Medications Medication Sig Discontinue Reason Start Date End Da te amoxicillin (AMOXIL) 500 mg capsule Take 1 capsule by mouth 3 times daily for 14 days. 07/17/2021 09/26/2021 documented as of this encounter Care Teams Cable Mock Up Assembler Relationship Specialty Start Date End Date Ayden Busch MD PCP - General 07/28/19 01/28/23 documented as of this encounter
--- OUTSIDE RECORDS SUMMARY | 2024-06-16 00:25 | XMS_ITS | Encounter Summary ---
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 20 Tablet 10/14/2021 12/18/2021 HYDROcodone-acetaminophe n (NORCO) 10-325 mg tablet Take 1 Tablet by mouth every 6 hours as needed for up to 28 days for Pain. Daily Max: 2 Tablets 56 Tablet 12/15/2021 01/07/2022 HYDROcodone-acetaminophe n (NORCO) 10-325 mg tablet Take 1 Tablet by mouth every 6 hours as needed for up to 28 days for Pain. Daily Max: 2 Tablets 56 Tablet 11/17/2021 03/09/2022 HYDROcodone-acetaminophe n (NORCO) 10-325 mg tablet Take 1 Tablet by mouth every 6 hours as needed for up to 28 days for Pain. Daily Max: 2 Tablets 56 Tablet 10/20/2021 03/09/2022 clindamycin (CLEOCIN) 300 mg capsule Take 1 capsule by mouth 3 times daily for 7 days. 21 capsule 10/14/2021 04/01/2022 fluconazole (DIFLUCAN) 150 mg tablet 1 tab po now, then one in a week 2 Tablet 10/14/2021 12/02/2021 documented in this encounter Progress Notes * Ayden Angulo MD - 10/14/2021 1545 EST [facility] Video Visit Today's visit was provided through telemedicine video conferencing: The location of the patient: Home The location of the provider: Clinic Exam Room Verbal consent: The concept of ???Telemedicine?? has been described to the patient.Patient has been informed of the anticipated benefits and possible risks. Patient understands the information provided regarding telemedicine, has had the opportunity to ask questions about this information, and all questions have been answered to patient???s satisfaction. Patient consents for the use of telemedicine in his/her medical care and authorizes the transmission of any relevant medical information to providers and their staff involved in patient???s medical or mental health care. Verbal consent obtained by myself or auxiliary staff: yes. Subjective: Chief Complaint(s): Other HPI: All vaccinated. Still with sinus burning pressure pain in maxillary sinuses. Consistent green discharge. Has off taste, coated tongue. What to do? Pain still an issue , prudent wit h meds. Has c/o knuckle, ankle and knee pain. Discussed failure of rheumatology to push diagnosis to area of better understandimng. Has been slightly down. Has had reconcilliation with son, who tried to kill himself. Is still wit hparupert myles, things are strong. I have reviewed patient's tobacco history: reports that she has been smoking cigarettes. She has been smoking about 0.75 packs per day. She has never used smokeless tobacco. I have reviewed current problem list and current medications. ROS: ROS See above Objective: Examination: Home Vitals: There were no vitals taken for this visit. Pertinent exam findings: appears well, no rash on visible skin and slightly down. Data reviewed with patient: Reviewed and/or ordered active problem list, medication list, health maintenance tests Assessment & Plan: Allie was seen today for other. Diagnoses and all orders for this visit: Connective tissue disease overlap syndrome (HCC-CMS) ([facility]) Comments: meds refilled discussed referral once Rheum reopens. Morbid obesity (HCC-CMS) ([facility]) Panic attack Depression with anxiety Comments: continue contact with therapy Tobacco dependence syndrome Hypercholesteremia Primary hypertension Comments: to report numbers. will check labs. Thrush Comments: will treat. may need retreatment after antibiotics Acute recurrent maxillary sinusitis Comments: one more antibiotic, if no sucess, ct scan Other orders - LORazepam (ATIVAN) 0.5 mg tablet; Take 2 Tablets by mouth 2 times daily as needed for up to 30 days for Anxiety. Daily Max 2 mg - citalopram (CELEXA) 20 mg tablet; Take 20 mg by mouth daily. - Cancel: LIPID PROFILE (INCLUDES CHOLESTEROL, TRIGLYCERIDES, HDL, LDL); Future - Cancel: COMPREHENSIVE METABOLIC PANEL (CMP) - fluconazole (DIFLUCAN) 150 mg tablet; 1 tab po now, then one in a week - clindamycin (CLEOCIN) 300 mg capsule; Take 1 capsule by mouth 3 times daily for 7 days. - HYDROcodone-acetaminophen (NORCO) 10-325 mg tablet; Take 1 Tablet by mouth every 6 hours as needed for up to 28 days for Pain. Daily Max: 2 Tablets - HYDROcodone-acetaminophen (NORCO) 10-325 mg tablet; Take 1 Tablet by mouth every 6 hours as needed for up to 28 days for Pain. Daily Max: 2 Tablets - HYDROcodone-acetaminophen (NORCO) 10-325 mg tablet; Take 1 Tablet by mouth every 6 hours as needed for up to 28 days for Pain. Daily Max: 2 Tablets - methocarbamoL (ROBAXIN) 750 mg tablet; Take 1 Tablet by mouth every 6 hours as needed for Muscle Spasms. A total of 30 minutes was spent on this encounter on the day of this encounter. The following individuals and their role did participate in today's encounter visit: Provider: Ayden Angulo MD Patient Spouse documented in this encounter Plan of Treatment Not on file documented as of this encounter Visit Diagnoses Diagnosis Connective tissue disease overlap syndrome (HCC-CMS)- Primary Other specified diffuse disease of connective tissue Morbid obesity (HCC-CMS) Morbid obesity Panic attack Panic disorder without agoraphobia Depression with anxiety Dysthymic disorder Tobacco dependence syndrome Tobacco use disorder Hypercholesteremia Pure hypercholesterolemia Primary hypertension Unspecified essential hypertension Thrush Candidiasis of mouth Acute recurrent maxillary sinusitis Acute maxillary sinusitis documented in this encounter Discontinued Medications Medication Sig Discontinue Reason Start Date End Da te methocarbamoL (ROBAXIN) 750 mg tablet Take 1 Tablet by mouth every 6 hours as needed for Muscle Spasms. Reorder 07/17/2021 10/14/2021 HYDROcodone-acetaminophe n (NORCO) 10-325 mg tablet Take 1 Tablet by mouth every 6 hours as needed for up to 28 days for Pain. Daily Max: 2 Tablets Reorder 09/22/2021 10/14/2021 cefpodoxime (VANTIN) 200 mg tablet Take 1 Tablet by mouth every 12 hours for 7 days. 10/07/2021 10/14/2021 documented as of this encounter Historical Medications * This list may reflect changes made after this encounter. Medication Sig Dispensed Refills Start Date End Date citalopram (CELEXA) 20 mg tablet Take 20 mg by mouth daily. 09/18/2021 10/20/2021 LORazepam (ATIVAN) 0.5 mg tablet Take 2 Tablets by mouth 2 times daily as needed for up to 30 days for Anxiety. Daily Max 2 mg 09/12/2021 11/04/2021 added in this encounter Care Teams Pants Busheler Relationship Specialty Start Date End Date Ayden Angulo MD PCP - General 07/28/19 01/28/23 documented as of this encounter
--- OUTSIDE RECORDS SUMMARY | 2024-06-16 00:25 | XMS_ITS | Encounter Summary ---
Author Organization [facility] Address [address] [place] [address] Care Team Providers Care Masseur/Masseuse Name Role Phone Ayden Angulo MD Primary Care Provider Unava ilable Reason for Visit * Reason Comments Facial Droop Encounter Details Date Type Department Care Team (Late st Contact Info) Description 04/01/2022 13:[address] [facility] Medicine [address], [facility] [address] [place] [address] Carlos Abdalla MD [address] [place] [address] [address] [place] [address] Dental infection (Primary Dx); Loyola's palsy; Strain of neck muscle, initial encounter; Tobacco dependence syndrome Social History Tobacco Use Types Packs/Day Years [...] Dispensed Refills Start Date End Da te clindamycin (CLEOCIN) 300 mg capsuleIndications:Denta l infection Take 1 capsule by mouth 3 times daily for 7 days. 21 capsule 04/01/2022 06/02/2023 documented in this encounter Progress Notes * Carlos Abdalla MD - 04/01/2022 0755 EDT [facility] Verbal consent: The concept of ???Telemedicine?? has been described to the patient. Patient has been informed of the anticipated benefits and possible risks. Patient understands the information provided regarding telemedicine, has had the opportunity to ask questions about this information, and all questions havebeen answered to patient???s satisfaction. Patient consents for the use of telemedicine in his/her medical care and authorizes the transmission of any relevant medical information to providers and their staff involved in patient???s medical or mental health care. Verbal consent obtained by myself or auxiliary staff: Yes Patient Location: Home Provider Location: Office HPI: Allie Small is a 41 y.o. female fup ER visit for bells palsy and getting better, with some neck stiffness, requesting abx for right lower molar infection, still smoking 3/4 PDP and only able to stop for 2 weeks after stroke. Recurrent dental infection and going on vacation and wants abx just in case I have reviewed patient's tobacco history: reports that she has been smoking cigarettes. She has been smoking about 0.75 packs per day. She has never used smokeless tobacco. I have reviewed current problem list and current medications. ROS: CV - no CP or worsening OROZCO GI - no N/V/D/C or stool change - no urinary frequency dysuria or hematuria MS - no other worsening joint pains ENDO - no cold/heat intolerance or weight change Physical Examination Home Vitals: No vital signs were obtained Pain: 2/10 Neck with full ROM and gentle stretching reviewed Slightly asymmetric smile Imaging/Test Review none Diagnosis 1. Dental infection clindamycin (CLEOCIN) 300 mg capsule 2. Loyola's palsy 3. Strain of neck muscle, initial encounter 4. Tobacco dependence syndrome Medical Decision Making Allie Small is a 41 y.o. female with a chief complaint of [place] palsy fup, neck strain, dental infection discussed and rxed abx, neck stretching and reviewed slow resolution typical of bells palsy, with fup if not resolving over 6-8 weeks Plan: 1. Discussed course of abx and need for dental exam and definitive care, reviewd gentle neck stretching and typical course of [place] Patient initiated phone contact with the office: yes. Patient is an established patient (parent, guardian) yes. E/M provided within previous 7 days for same medical assessment: No Anticipate E/M service within 24hrs or next available urgent appointment No This visit was conducted by telephone. I spent a total of 30 minutes in discussion with the patientas described in the progress note. Carlos Abdalla MD 04/01/2022 documented in this encounter Plan of Treatment Not on file documented as of this encounter Visit Diagnoses Diagnosis Dental infection- Primary Acute apical periodontitis of pulpal origin Loyola's palsy Strain of neck muscle, initial encounter Tobacco dependence syndrome Tobacco use disorder documented in this encounter Discontinued Medications Medication Sig Discontinue Reason Start Date End Da te clindamycin (CLEOCIN) 300 mg capsule Take 1 capsule by mouth 3 times daily for 7 days. Reorder 10/14/2021 04/01/2022 documented as of this encounter Care Teams Masseur/Masseuse Relationship Specialty Start Date End Date Ayden Angulo MD PCP - General 07/28/19 01/28/23 documented as of this encounter
--- OUTSIDE RECORDS SUMMARY | 2024-06-16 00:25 | XMS_ITS | Encounter Summary ---
Author Organization [facility] Address [address] [place] [address] Care Team Providers Care Casket Assembler Name Role Phone Ayden Angulo MD Primary Care Provider Unava ilable Reason for Visit * Reason Onset Date Comments Medications Refill 05/21/2021 Medication Management 05/21/2021 Encounter Details Date Type Department Care Team (Late st Contact Info) Description 05/21/2021 Refill [facility] Family Medicine [facility] [address] [place] [address] Ayden Angulo MD Medications Refill; Medication Management Social History Tobacco Use Types [...] to 30 days for Anxiety. Daily Max: 2 mg 60 Tablet 05/23/2021 06/12/2021 documented in this encounter Miscellaneous Notes * Telephone Encounter - Mitali Sena RN - 05/23/2021 1412 EDT Pt was read TC note. Pt already has an OV on 06/12. * Telephone Encounter - Ayden Angulo MD - 05/23/2021 1208 EDT Call. meds called in. Should make them last 30 days. Needs ov to discuss as this is not a medication that a person should rely on to help with anxiety in the long run as you get addicted to it. * Telephone Encounter - Rosemarie Jones - 05/23/2021 1022 EDT Pt called regarding lorazepam she says she was told by TC to take 4/day and the instructions on thebottle were to take 4/day as well and that she was given 60 tablets, she says some days she only took 2 or 3 so it lasted a little longer than it should have, pt says she ran out the day before yesterday, pt says the nurse she spoke to the other day was rude and made her feel like she did somethingwrong when she didn't - there seems to be a lot of inconsistencies in the information given to EC and myself - pt would like call back w/ update on refill * Telephone Encounter - Daylin Guy RN - 05/21/2021 0909 EDT I checked VPMS- she last filled on 04/27 for #60 tabs. Her directions on current med list state to take 2 tabs BID PRN. I called the patient. She initially said she takes 4 tabs per day, so it is only a 15 day supply (to reach 05/12). I then inquired if she is consistently taking 4/day or just PRN. She then said she takes atleast 2 tabs per day and is out. I told her if she was taking 2 tabs per day- her script should last her 30 days (until 05/27). She then said she has enough until then and was calling in advance. I then reminded her she said she was out and she responded by saying she has 3 left. She then said she has 2.5 tabs left. TC- I am not sure what to make of this. Last uds and csa on file from 02/07/21. Upcoming appt on 06/12/21. * Telephone Encounter - Rosemarie Jones - 05/21/2021 0838 EDT Pt needs refill of LORazepam (ATIVAN) 0.5 mg tablet She has 2 left and says she was only given 30 .5mg tablets and instructions were for 1 a day, pt says that 1 a day isn't enough - I am seeing she was RXd 60 tablets and was to take 2 tablets 2 times daily - please advise documented in this encounter Plan of Treatment Not on file documented as of this encounter Visit Diagnoses Not on filedocumented in this encounter Discontinued Medications Medication Sig Discontinue Reason Start Date End Da te LORazepam (ATIVAN) 0.5 mg tablet Take 2 Tablets by mouth 2 times daily as needed for up to 30 days for Anxiety. Daily Max: 2 mg Reorder 04/29/2021 05/23/2021 documented as of this encounter Care Teams Casket Assembler Relationship Specialty Start Date End Date Ayden Angulo MD PCP - General 07/28/19 01/28/23 documented as of this encounter
--- OUTSIDE RECORDS SUMMARY | 2024-06-16 00:25 | XMS_ITS | Encounter Summary ---
Author Organization [facility] Address [address] [place] [address] Care Team Providers Care Globe Changer Name Role Phone Ayden Angulo MD Primary Care Provider Unava ilable Reason for Visit * Reason Onset Date Comments Medication Management 09/22/2021 Blister 09/22/2021 Encounter Details Date Type Department Care Team (Late st Contact Info) Description 09/22/2021 Telephone [facility] [facility] [address] [place] [address] Ayden Angulo MD Medication Management; Blister Social History Tobacco Use Types Packs/Day Years [...] Pain. Daily Max: 2 Tablets 56 Tablet 09/22/2021 10/14/2021 documented in this encounter Miscellaneous Notes * Telephone Encounter - Daylin Guy RN - 09/22/2021 1448 EST Patient notified. She also said she had been sick and tested neg for covid. I told her I would makenote of this. * Telephone Encounter - Ayden Angulo MD - 09/22/2021 1437 EST For throat, soft foods Can try a mixture of liquid benadryl and maalox/ or mylanta swished and swallowed to coat and numb it. meds sent- * Telephone Encounter - Daylin Guy RN - 09/22/2021 1330 EST Last appt 07/28/21, next appt 10/14/21. Last uds and csa on file from 02/07/21. Per VPMS, last filled a 28 day supply on 08/24 , therefore would be due. TC- what would you recommend for her burnt throat/blistering? * Telephone Encounter - Starr Bro - 09/22/2021 1131 EST Patient would like RX Hydrocodone 10-325 mg, Take 1 Tablet by mouth every 6 hours as needed for up to 28 days for Pain. ??Daily Max: 2 Tablets called into the pharmacy. She is out. Additionally, she states that she burnt her throat and has blisters. She is wondering what she can do to relieve the pain. documented in this encounter Plan of Treatment Not on file documented as of this encounter Visit Diagnoses Not on filedocumented in this encounter Discontinued Medications Medication Sig Discontinue Reason Start Date End Da te HYDROcodone-acetaminophe n (NORCO) 10-325 mg tablet Take 1 Tablet by mouth every 6 hours as needed for up to 28 days for Pain. Daily Max: 2 Tablets Reorder 08/24/2021 09/22/2021 documented as of this encounter Care Teams Globe Changer Relationship Specialty Start Date End Date Ayden Angulo MD PCP - General 07/28/19 01/28/23 documented as of this encounter
--- OUTSIDE RECORDS SUMMARY | 2024-06-16 00:25 | XMS_ITS | Encounter Summary ---
Author Organization [facility] Address [address] [place] [address] Care Team Providers Care Comfort Station Attendant Name Role Phone Ayden Angulo MD Primary Care Provider Unava ilable Reason for Visit * Reason Onset Date Comments Medications Refill 02/19/2022 Encounter Details Date Type Department Care Team (Late st Contact Info) Description 02/19/2022 Refill [facility] Family Medicine [facility] [address] [place] [address] Ayden Angulo MD Medications Refill Social History [...] days for Anxiety. Daily Max 2 mg 30 Tablet 02/24/2022 03/25/2022 documented in this encounter Miscellaneous Notes * Telephone Encounter - Debbie Linda LPN - 02/24/2022 0825 EDT [facility] CONTROLLED MEDICATION REFILL Medication: lorazepam Medication, dose, directions verified: yes Pharmacy verified: yes Last office visit: 01/20/2022 Next office visit: pending Prescription due to be filled: Due Last urine drug screen: 02/07/2021 Last VPMS: 02/24/2022 -Per VPMS pt last filled medication on 01/08/2022 for #30 tabs with no refills. Last CSA: 02/07/2021 * Telephone Encounter - Debbie Linda LPN - 02/24/2022 0824 EDTFrom: Allie Small To: Office of Ayden Angulo MD Sent: 02/19/2022 17:12 EDT Subject: Medication Renewal Request Refills have been requested for the following medications: LORazepam (ATIVAN) 0.5 mg tablet [Ayden Angulo MD] Preferred pharmacy: [id number] documented in this encounter Plan of Treatment Not on file documented as of this encounter Visit Diagnoses Not on filedocumented in this encounter Discontinued Medications Medication Sig Discontinue Reason Start Date End Da te LORazepam (ATIVAN) 0.5 mg tablet Take 2 Tablets by mouth 2 times daily as needed for up to 30 days for Anxiety. Daily Max 2 mg Reorder 01/08/2022 02/19/2022 documented as of this encounter Care Teams Comfort Station Attendant Relationship Specialty Start Date End Date Ayden Angulo MD PCP - General 07/28/19 01/28/23 documented as of this encounter
--- OUTSIDE RECORDS SUMMARY | 2024-06-16 00:25 | XMS_ITS | Encounter Summary ---
Author Organization [facility] Address [address] [place] [address] Care Team Providers Care Livestock Ranch Hand Name Role Phone Ayden Angulo MD Primary Care Provider Unava ilable Reason for Visit * Reason Onset Date Comments Medications Refill 07/16/2021 Encounter Details Date Type Department Care Team (Late st Contact Info) Description 07/16/2021 Refill [facility] Family Medicine [facility] [address] [place] [address] Ayden Angulo MD Medications Refill Social History [...] Pain. Daily Max: 2 Tablets 56 Tablet 07/26/2021 08/21/2021 methocarbamoL (ROBAXIN) 750 mg tablet Take 1 Tablet by mouth every 6 hours as needed for Muscle Spasms. 20 Tablet 07/17/2021 10/14/2021 documented in this encounter Miscellaneous Notes * Telephone Encounter - Daylin Guy RN - 07/17/2021 1130 EDT Last appointment 06/12/21, next appointment 07/28/21. Last uds on file from 02/07/21 as well as csa. Per [facility], last filled the [place] on 06/28/21 for #56 for a 28 day supply. Will be due on 07/26/21. The methocarbamol was last sent as tabbed on 03/14/21. * Telephone Encounter - Leandra Pike MA - 07/16/2021 1623 EDT Patient calling the Rx line requesting refills of the following medications: Hydrocodone-acetaminophen 10-325 mg tablets muscle relaxer (pt forgot name; likely methocarbamol 750mg tablets) Pharmacy: [facility] in [place], [place] documented in this encounter Plan of Treatment Not on file documented as of this encounter Visit Diagnoses Not on filedocumented in this encounter Discontinued Medications Medication Sig Discontinue Reason Start Date End Da te methocarbamoL (ROBAXIN) 750 mg tablet Take 1 Tablet by mouth every 6 hours as needed for Muscle Spasms. Reorder 03/14/2021 07/17/2021 HYDROcodone-acetaminophe n (NORCO) 10-325 mg tablet Take 1 Tablet by mouth every 6 hours as needed for up to 28 days for Pain. Daily Max: 2 Tablets Reorder 06/28/2021 07/17/2021 documented as of this encounter Care Teams Livestock Ranch Hand Relationship Specialty Start Date End Date Ayden Angulo MD PCP - General 07/28/19 01/28/23 documented as of this encounter
--- OUTSIDE RECORDS SUMMARY | 2024-06-16 00:25 | XMS_ITS | Encounter Summary ---
Author Organization [facility] Address [address] [place] [address] Care Team Providers Care Caravan Park And Camping Ground Manager Name Role Phone Ayden Angulo MD Primary Care Provider Unava ilable Reason for Visit * Reason Onset Date Comments Medications Refill 11/25/2021 Medications Refill 11/27/2021 Encounter Details Date Type Department Care Team (Late st Contact Info) Description 11/25/[address] [facility] [place] [facility] [address] [place] [address] Ayden Angulo MD Medications Refill; Medications Refill [...] Telephone Encounter - Gage Ford MA - 11/27/2021 0830 EST Rx filled on 11/26/21 TE. Closing. * Telephone Encounter - Gage Ford MA - 11/25/2021 1444 EST Pt called Rx line. Requested Prescriptions Pending Prescriptions Disp Refills ??? LORazepam (ATIVAN) 0.5 mg tablet 25 Tablet 0 Sig: Take 2 Tablets by mouth 2 times daily as needed for up to 30 days for Anxiety. Daily Max 2 mg Please review. documented in this encounter Plan of Treatment Not on file documented as of this encounter Visit Diagnoses Not on filedocumented in this encounter Care Teams Caravan Park And Camping Ground Manager Relationship Specialty Start Date End Date Ayden Angulo MD PCP - General 07/28/19 01/28/23 documented as of this encounter
--- OUTSIDE RECORDS SUMMARY | 2024-06-16 00:25 | XMS_ITS | Encounter Summary ---
Author Organization [facility] Address [address] [place] [address] Care Team Providers Care Vacuum Tank Tender Name Role Phone Ayden Angulo MD Primary Care Provider Unava ilable Reason for Visit * Reason Onset Date Comments Track Oiler Message 03/20/2022 Encounter Details Date Type Department Care Team (Late st Contact Info) Description 03/20/2022 Telephone [facility] Family Medicine - [address] [address] Waqas Fuentes MD [address] [place] [address] [address] Track Oiler Message Social History Tobacco Use Types Packs/Day [...] encounter Miscellaneous Notes * Telephone Encounter - Waqas Fuentes MD - 03/20/2022 1821 EDT Received on-call page from Allie complaining of a dental infection which is now radiating discomfort to her throat and ear. She states that she was seen at [facility] on March 04 and was prescribed an antibiotic for the dental infection. She states that the symptoms seem to be coming back and cannot get into see her dentist until afternext week. 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 There was no mention of a dental infection that I could see. I recommend for Allie to be seen either at an emergency room or urgent care to determine if she needs an antibiotic or if she is developing an abscess and may need drainage. She voiced understanding and states that she would be going to the emergency [place] [facility] [place] No barriers to care. Waqas Fuentes MD documented in this encounter Plan of Treatment Not on file documented as of this encounter Visit Diagnoses Not on filedocumented in this encounter Care Teams Vacuum Tank Tender Relationship Specialty Start Date End Date Ayden Angulo MD PCP - General 07/28/19 01/28/23 documented as of this encounter
--- OUTSIDE RECORDS SUMMARY | 2024-06-16 00:25 | XMS_ITS | Encounter Summary ---
Author Organization [facility] Address [address] [place] [address] Care Team Providers Care Oxygraph Operator Name Role Phone Ayden Angulo MD Primary Care Provider Unava ilable Reason for Visit * Reason Onset Date Comments Other Medications Refill 02/26/2022 Encounter Details Date Type Department Care Team (Late st Contact Info) Description 10/18/[address] [facility] Family Medicine [facility] [address] [place] [address] Ayden Angulo MD Other; Medications Refill Social History Tobacco Use Types [...] MOUTH ONE TIME DAILY 90 Tablet 3 10/20/2021 10/26/2022 documented in this encounter Miscellaneous Notes * Telephone Encounter - Priscilla Milton RN - 10/20/2021 1138 EST Surescripts requesting refill on Lipitor 40 mg JAMEL 10/14/2021 NOV none Last refill 07/21/2021 documented in this encounter Plan of Treatment Not on file documented as of this encounter Visit Diagnoses Not on filedocumented in this encounter Discontinued Medications Medication Sig Discontinue Reason Start Date End Da te atorvastatin (LIPITOR) 40 mg tablet TAKE ONE TABLET BY MOUTH ONE TIME DAILY 07/21/2021 10/20/2021 documented as of this encounter Care Teams Oxygraph Operator Relationship Specialty Start Date End Date Ayden Angulo MD PCP - General 07/28/19 01/28/23 documented as of this encounter
--- OUTSIDE RECORDS SUMMARY | 2024-06-16 00:25 | XMS_ITS | Encounter Summary ---
Author Organization [facility] Address [address] [place] [address] Care Team Providers Care Superintendent Track Name Role Phone Ayden Angulo MD Primary Care Provider Unava ilable Reason for Visit * Reason Onset Date Comments Wound Infection 07/17/2021 Mouth Injury 07/17/2021 Encounter Details Date Type Department Care Team (Late st Contact Info) Description 07/17/2021 Telephone [facility] Medicine [facility] [address] [place] [address] Ayden Angulo MD Wound Infection; Mouth Injury Social History Tobacco Use Types Packs/Day [...] Dispensed Refills Start Date End Da te amoxicillin (AMOXIL) 500 mg capsule Take 1 capsule by mouth 3 times daily for 14 days. 42 capsule 07/17/2021 09/26/2021 documented in this encounter Miscellaneous Notes * Telephone Encounter - Kathy Padilla - 07/18/2021 1027 EDT CHT reached out to pt. And left a message for pt to call back. If pt has Medicaid pt is able to have dental assistance covered by Medicaid, if it is emergency dental care she can apply to the [place] funds at [facility] and get some dental help as well. When pt calls back CHT will inquire more about the situation. * Telephone Encounter - Daylin Guy RN - 07/17/2021 1639 EDT Patient notified. She would like referral. Sent to Kathy. * Telephone Encounter - Ayden Angulo MD - 07/17/2021 1631 EDT I put in a script for antibiotics- does she want a cht referral to see about dental help? * Telephone Encounter - Daylin Guy RN - 07/17/2021 1415 EDT 1-2 weeks ago, cut below the gums near bottom teeth. She said she had been trying to wash out with peroxide and biotene but the area is now infected. Same area she had an infection in a few months ago. She said there is a pocket of pus. Denies fever. Her cheek is red and puffy. Does not have dental insurance- she is worried that by the time she saves up for a dental appointment the infection will be much worse. To TC- not sure if you would prefer she go to EC, or rx abx? * Telephone Encounter - Robert Rosemarie - 07/17/2021 1346 EDT Pt cut back of her mouth with a fork last week and it is now infected and hurts, requesting antibiotics and/or to speak with nurse documented in this encounter Plan of Treatment Not on file documented as of this encounter Visit Diagnoses Diagnosis Dental infection- Primary Acute apical periodontitis of pulpal origin documented in this encounter Care Teams Superintendent Track Relationship Specialty Start Date End Date Ayden Angulo MD PCP - General 07/28/19 01/28/23 documented as of this encounter
--- OUTSIDE RECORDS SUMMARY | 2024-06-16 00:25 | XMS_ITS | Encounter Summary ---
Author Organization [facility] Address [address] [place] [address] Care Team Providers Care Application Project Leader Name Role Phone Ayden Angulo MD Primary Care Provider Unava ilable Reason for Visit * Reason Onset Date Comments Medications Refill 04/28/2022 Medications Refill 06/19/2022 Encounter Details Date Type Department Care Team (Late st Contact Info) Description 04/28/2022 Refill [facility] Family Medicine [address], [facility] [address] [place] [address] Sue Kerns, [facility] [address] [facility] [address] [place] [address] Medications Refill; Medications Refill Social History Tobacco [...] Pain. Daily Max: 2 Tablets 56 Tablet 04/30/2022 05/27/2022 documented in this encounter Miscellaneous Notes * Telephone Encounter - Kaia Ward RN - 04/29/2022 1417 EDT vpms filled 03/09/2022 for 28 days * Telephone Encounter - Priscilla Enriquez RN - 04/29/2022 1129 EDT Medication(s) Requested: Pravin Preferred Pharmacy: [facility] in [place], [place] Is patient out of medication? Unknown Last Refill Date: 04/06/22 for 56 tabs Last Visit Date with Ordering Provider: 04/01/22 via video Next Non-Acute Visit Date Scheduled with Care Team: Yes.05/14/2022 PRISCILLA ENRIQUEZ RN 04/29/2022 11:29 PLEASE CHECK ON VPMS documented in this encounter Plan of Treatment Not on file documented as of this encounter Visit Diagnoses Not on filedocumented in this encounter Discontinued Medications Medication Sig Discontinue Reason Start Date End Da te HYDROcodone-acetaminophe n (NORCO) 10-325 mg tablet Take 1 Tablet by mouth every 6 hours as needed for up to 28 days for Pain. Daily Max: 2 Tablets Reorder 04/06/2022 04/28/2022 documented as of this encounter Care Teams Application Project Leader Relationship Specialty Start Date End Date Ayden Angulo MD PCP - General 07/28/19 01/28/23 documented as of this encounter
--- OUTSIDE RECORDS SUMMARY | 2024-06-16 00:25 | XMS_ITS | Encounter Summary ---
Author Organization [facility] Address [address] [place] [address] Care Team Providers Care Immigration Manager Name Role Phone Ayden Angulo MD Primary Care Provider Unava ilable Reason for Visit * Reason Onset Date Comments Medications Refill 04/04/2022 Encounter Details Date Type Department Care Team (Late st Contact Info) Description 04/04/2022 Refill [facility] Family Medicine [facility] [address] [place] [address] Ayden Angulo MD Medications Refill Social History [...] BY MOUTH ONE TIME DAILY 90 capsule 3 04/07/2022 04/12/2023 documented in this encounter Miscellaneous Notes * Telephone Encounter - Leandra Pike MA - 04/07/2022 0908 EDT [facility] MEDICATION REFILL Medication: fluoxetine 40mg capsules Medication, dose, directions verified: take one cap PO one time daily Pharmacy verified: [facility] Last office visit: 04/01/22 Next office visit: 05/14/22 TE to TC - requested med was listed as discontinued in patient's chart; please review documented in this encounter Plan of Treatment Not on file documented as of this encounter Visit Diagnoses Not on filedocumented in this encounter Care Teams Immigration Manager Relationship Specialty Start Date End Date yAden Angulo MD PCP - General 07/28/19 01/28/23 documented as of this encounter
--- OUTSIDE RECORDS SUMMARY | 2024-06-16 00:25 | XMS_ITS | Encounter Summary ---
Author Organization [facility] Address [address] [place] [address] Care Team Providers Care Lumber Stacker Operator Name Role Phone Ayden Angulo MD Primary Care Provider Unava ilable Reason for Visit * Reason Onset Date Comments Other 09/02/2021 can pt take Muci nex? Encounter Details Date Type Department Care Team (Late st Contact Info) Description 09/02/2021 Telephone [facility] - [place] [address] [place] [address] Ayden Angulo MD Other (can pt take Mucinex?) Social History Tobacco Use Types Packs/Day Years [...] Telephone Encounter - Sue Kerns DNP - 09/03/2021 0939 EST Agree with plan, thanks - back to nursing to track COVID results * Telephone Encounter - Daylin Guy, BARNEY - 09/03/2021 0919 EST Spoke with patient. Sxs began on Wednesday (08/30). She is complaining of sore throat, sense of taste and smell comes and goes, painful cough with white sputum. She denies shortness of breath, but states her chest feels very congested and tight like something is sitting on my chest> Her O2 is 96%. She has had hot and cold chills, but unable to locate thermometer to check her temperature. She is not vaccinated against the flu, but has received 2 doses of moderna (has not rec'd booster yet). I advised [facility] go to [facility] today for evaluation as well as testing, and to report to ER if [id number] to 92% or lower. She verbalized agreement. She will work on getting a ride. She said she will call back with covid results. FYI to covering provider today. * Telephone Encounter - Deloris Rod - 09/02/2021 1409 EST Pt is taking zicam because she is sick, began a few days ago. Pt would like to take Mucinex becauseher chest is tight, wondering if she can take it? Pt's oxygen is 97. A few other people where pt lives are also sick, with negative covid test. Pt has not had a covid test. documented in this encounter Plan of Treatment Not on file documented as of this encounter Visit Diagnoses Not on filedocumented in this encounter Care Teams Lumber Stacker Operator Relationship Specialty Start Date End Date Ayden Angulo MD PCP - General 07/28/19 01/28/23 documented as of this encounter
--- OUTSIDE RECORDS SUMMARY | 2024-06-16 00:25 | XMS_ITS | Encounter Summary ---
Author Organization [facility] Address [address] [place] [address] Care Team Providers Care Tar Pot Man Name Role Phone Ayden Angulo MD Primary Care Provider Unava ilable Reason for Visit * Reason Onset Date Comments Requesting Sooner Appointment 03/05/2022 Ne eds TCM Encounter Details Date Type Department Care Team (Late st Contact Info) Description 03/05/2022 Telephone [facility] [address] [place] [address] Ayden Angulo MD Requesting Sooner Appointment (Needs TCM) Social History Tobacco Use Types Packs/Day Years [...] encounter Miscellaneous Notes * Telephone Encounter - Smiley Cedeno - 03/05/2022 1322 EDT Scheduled TCM with WC on 03/09. * Telephone Encounter - Mitali Sena RN - 03/05/2022 1153 EDT Front-please schedule with WC or BH * Telephone Encounter - Preeti Roberto - 03/05/2022 1118 EDT Patient needs TCM f/u from ED visit yesterday for [facility] Palsy. Advise if we should schedule visit with TC or a covering provider (MALI/MAYRA)? documented in this encounter Plan of Treatment Not on file documented as of this encounter Visit Diagnoses Not on filedocumented in this encounter Care Teams Tar Pot Man Relationship Specialty Start Date End Date Ayden Angulo MD PCP - General 07/28/19 01/28/23 documented as of this encounter
--- OUTSIDE RECORDS SUMMARY | 2024-06-16 00:25 | XMS_ITS | Encounter Summary ---
Author Organization [facility] Address [address] [place] [address] Care Team Providers Care Winter Intern Name Role Phone Ayden Angulo MD Primary Care Provider Unava ilable Reason for Visit * Reason Comments Anxiety Encounter Details Date Type Department Care Team (Late st Contact Info) Description 12/02/2021 14:00 EDT Telemedicine [facility] Family Medicine [facility] [address], [address] [place] [address] Ayden Angulo MD LIDIA (generalized anxiety disorder) (Primary Dx) Social History Tobacco Use Types [...] Dispensed Refills Start Date End Da te ARIPiprazole (ABILIFY) 10 mg tablet Take 1 Tablet by mouth daily. Start by taking at bedtime 30 Tablet 12/02/2021 12/22/2022 diclofenac (VOLTAREN) 75 mg EC tablet Take 1 Tablet by mouth 2 times daily. 180 Tablet 5 12/02/2021 12/21/2022 documented in this encounter Progress Notes * Ayden Angulo MD - 12/02/2021 1400 EDT [facility] [place] Today's visit was provided through telemedicine video conferencing: The location of the patient: Home The location of the provider: Office Verbal consent: The concept of ???Telemedicine?? has [...] or auxiliary staff: yes. Subjective: Chief Complaint(s): Anxiety HPI: Patient says she is not doing well she has been having ongoing panic episodes for over a month. She self accelerated her lorazepam to handle these but says it does not really contain what she feels. She talk to her counselor about it. Some of it may be that her partner Enrique is now working nights at [employer] and she is alone but it can happen during the day as well. It is accelerated her degree of agoraphobia. She never goes out of the house. She describes what a panic attack feels like for her she will get these goosebumps and cold chills and pounding chest and a rising sense of fear. Depressed- awful.. I puk No thoughts of self harm I have reviewed patient's tobacco history: reports that she has been smoking cigarettes. She has been smoking about 0.75 packs per day. She has never used smokeless tobacco. I have reviewed current problem list and current medications. ROS: ROS See above. Not using any extra substances. Fully taking her medication as listed. Objective: Examination: Home Vitals: There were no vitals taken for this visit. Pertinent exam findings: Sad appearing female. No smiles or laughs. Speaks in a whisper. Data reviewed with patient: Reviewed and/or ordered active problem list, medication list tests Assessment & Plan: Allie was seen today for anxiety. Diagnoses and all orders for this visit: LIDIA (generalized anxiety disorder) Comments: Will add one of the atypicals. Warned about possibility of feeling sleepy initially and not to be scared off. Will not combine with alcohol Other orders - diclofenac (VOLTAREN) 75 mg EC tablet; Take 1 Tablet by mouth 2 times daily. - ARIPiprazole (ABILIFY) 10 mg tablet; Take 1 Tablet by mouth daily. Start by taking at bedtime A total of 31 minutes was spent on this encounter on the day of this encounter. The following individuals and their role did participate in today's encounter visit: Provider: Ayden Angulo MD Patient documented in this encounter Plan of Treatment Not on file documented as of this encounter Visit Diagnoses Diagnosis LIDIA (generalized anxiety disorder)- Primary Generalized anxiety disorder documented in this encounter Discontinued Medications Medication Sig Discontinue Reason Start Date End Da te citalopram (CELEXA) 20 mg tablet TAKE ONE TABLET BY MOUTH ONE TIME DAILY 10/20/2021 12/02/2021 fluconazole (DIFLUCAN) 150 mg tablet 1 tab po now, then one in a week 10/14/2021 12/02/2021 cyclobenzaprine (FLEXERIL) 5 mg tablet Take 1 Tablet by mouth every 8 hours as needed for up to 7 days for Muscle Spasms. 07/28/2021 12/02/2021 diclofenac (VOLTAREN) 75 mg EC tablet Reorder 04/27/2021 12/02/2021 documented as of this encounter Care Teams Winter Intern Relationship Specialty Start Date End Date Ayedn Angulo MD PCP - General 07/28/19 01/28/23 documented as of this encounter
--- OUTSIDE RECORDS SUMMARY | 2024-06-16 00:25 | XMS_ITS | Encounter Summary ---
Author Organization [facility] Address [address] [place] [address] Care Team Providers Care Herbarium Worker Name Role Phone Ayden Angulo MD Primary Care Provider Unava ilable Reason for Visit * Reason Comments Hip Pain Knee Pain Back Pain Encounter Details Date Type Department Care Team (Late st Contact Info) Description 03/04/2022 10:45 EDT Telemedicine [facility] Family Medicine [address], [facility] [place] [address] Sue Kerns DNP [address] [facility] [address] [place] [address] Right hip pain (Primary Dx); Right-sided low back pain with right-sided sciatica, unspecified chronicity; Right knee pain, unspecified chronicity Social History Tobacco Use Types Packs/Day Years [...] as of this encounter Progress Notes * Sue Kerns, DNP - 03/04/2022 1045 EDT [facility] Video Visit APSO Assessment & Plan: 1. Right hip pain 2. Right-sided low back pain with right-sided sciatica, unspecified chronicity 3. Right knee pain, unspecified chronicity Allie presents today to discuss right hip, low back, and knee pain that she has been experiencing s/p fall 1.5 months ago. Unfortunately, exam is limited due to video visit encounter. She denies alarm features including LE weakness, bladder/bowel dysfunction, saddle anesthesia. We discussed optionsfor management at this time and she elected to start with referral to physical therapy. Advised that if she does not notice any improvement in 4-6 weeks, would recommend imaging and/or referral to orthopedics. She was encouraged to continue with heat/ice, topical Icy/Hot or arnica, gentle stretching exercises. - AMB CONS/FOLLOW UP PHYSICAL THERAPY - OUTSIDE OF NETWORK; Future Return if symptoms worsen or fail to improve. Today's visit was provided through telemedicine video [...] or auxiliary staff: yes. Subjective: Chief Complaint(s): Hip Pain, Knee Pain, and Back Pain HPII have reviewed current problem list and current medications. Allie presents today to discuss pain that she is experiencing after a fall. She reports that 1.5 months ago, she tripped over her dog and fell. She banged her right knee on the doorway and twisted her low back did a complete somersault like a ballerina! She reports that she continues to have some pain in her right knee, right low back, and right hip. Pain intermittently radiates down the right leg. No bowel/bladder dysfunction No LE weakness No saddle anesthesia Is on chronic pain medication which helps some Usually wraps leg in a heating blanket which provides relief Objective: Examination: There were no vitals taken for this visit. Physical Exam Constitutional: General: She is not in acute distress. Appearance: Normal appearance. She is not ill-appearing or diaphoretic. Pulmonary: Effort: Pulmonary effort is normal. Neurological: General: No focal deficit present. Mental Status: She is alert and oriented to person, place, and time. A total of 20 minutes was spent on this encounter on the day of this encounter. The following individuals and their role did participate in today's encounter visit: Provider: Sue Kerns DNP Patient documented in this encounter Plan of Treatment Not on file documented as of this encounter Visit Diagnoses Diagnosis Right hip pain- Primary Pain in joint, pelvic region and thigh Right-sided low back pain with right-sided sciatica, unspecified chronicity Right knee pain, unspecified chronicity documented in this encounter Care Teams Herbarium Worker Relationship Specialty Start Date End Date Ayden Angulo MD PCP - General 07/28/19 01/28/23 documented as of this encounter
--- OUTSIDE RECORDS SUMMARY | 2024-06-16 00:25 | XMS_ITS | Encounter Summary ---
Author Organization [facility] Address [address] [place] [address] Care Team Providers Care Rural Electrification Engineer Name Role Phone Ayden Angulo MD Primary Care Provider Unava ilable Reason for Visit * Reason Onset Date Comments Medications Refill 03/08/2022 pt out of RX Encounter Details Date Type Department Care Team (Late st Contact Info) Description 03/08/[address] [facility] [place] [facility] [address] [place] [address] Ayden Angulo MD Medications Refill (pt out of RX) Social History Tobacco Use Types Packs/Day [...] Telephone Encounter - Kriss Jacobs RN - 03/11/2022 1028 EDT Med sent in 03/09, MyC sent. See 03/09 TE. This TE Rx refused. * Telephone Encounter - Deloris Rod - 03/09/2022 1508 EDT Pt called to check status. * Telephone Encounter - Ami Avilez - 03/09/2022 1115 EDT Pt calling said that she is completely out of medication was hoping to get this sent in today documented in this encounter Plan of Treatment Not on file documented as of this encounter Visit Diagnoses Not on filedocumented in this encounter Care Teams Rural Electrification Engineer Relationship Specialty Start Date End Date Ayden Angulo MD PCP - General 07/28/19 01/28/23 documented as of this encounter
--- OUTSIDE RECORDS SUMMARY | 2024-06-16 00:25 | XMS_ITS | Encounter Summary ---
Author Organization [facility] Address [address] [place] [address] Care Team Providers Care Girls Tennis Coach Name Role Phone Ayden Angulo MD Primary Care Provider Unava ilable Reason for Visit * Reason Comments Chronic Pain Encounter Details Date Type Department Care Team (Late st Contact Info) Description 01/20/2022 14:00 EDT Telemedicine [facility] Medicine [facility] [address], [facility] [address] [place] [address] Ayden Angulo MD Chronic tension-type headache, not intractable (Primary Dx); Tobacco dependence syndrome Social History Tobacco Use [...] 20 lozenges per day. 144 Lozenge 2 01/20/2022 03/25/2022 documented in this encounter Progress Notes * Ayden Angulo MD - 01/20/2022 1400 EDT primary Care Video Visit Assessment & Plan Diagnoses and all orders for this visit: Chronic tension-type headache, not intractable Comments: Discussed nature of headache. Proper posture heat to the area gentle stretches and proper lifting from here on out to call if recurrent Tobacco dependence syndrome Comments: Strong desire to quit smoking underlined Other orders - nicotine polacrilex (COMMIT) 4 mg lozenge No follow-ups on file. Patient education was [...] with No chief complaint on file. HPI Allie reports that she has had a headache that lasted 8 days now finally receding. Unlike the long headache she had last year this began in her neck and seem to be worse with rest better with activity. She eventually did find herself a little sensitive to light though noises not a problem. She took Motrin her pain meds muscle relaxer tried heat ice and icy hot until finally is lifting. She had 1 to see a chiropractor ago with her past history of a stroke she was told she could not come. Admittedly her posture is very poor and contributes to this 2. Recently waking up with some increased anxiety. Is using her medication. Has learned lots of tools and therapy to self calm herself. Thinks it is because there is some people who have been stalking her house with guns though she thinks a redneck friend of hers with guns chased him away the othernight and they have not been back Data reviewed this visit: problem list/past medical history, current medications and allergies ROS - See [facility] TELEMEDICINE VIDEO VISIT Today's visit was provided through telemedicine video conferencing: The location of the patient : Home The location of the provider: Office The following staff and their role did participate in today's encounter visit: Ayden Angulo MD Objective There were no vitals taken for this visit. Physical Exam Bright seeming. Makes good eye contact in the screen. No pain demonstrated. I had her do range of motion exercises with her neck and slight limitation is noted documented in this encounter Plan of Treatment Not on file documented as of this encounter Visit Diagnoses Diagnosis Chronic tension-type headache, not intractable- Primary Chronic tension type headache Tobacco dependence syndrome Tobacco use disorder documented in this encounter Discontinued Medications Medication Sig Discontinue Reason Start Date End Da te nicotine polacrilex (COMMIT) 4 mg lozenge Let one lozenge dissolve in your mouth every hour as needed. Do not exceed 20 lozenges per day. Reorder 06/12/2021 01/20/2022 documented as of this encounter Care Teams Girls Tennis Coach Relationship Specialty Start Date End Date Ayden Angulo MD PCP - General 07/28/19 01/28/23 documented as of this encounter
--- OUTSIDE RECORDS SUMMARY | 2024-06-16 00:25 | XMS_ITS | Encounter Summary ---
Author Organization [facility] Address [address] [place] [address] Care Team Providers Care Craft Superintendent Name Role Phone Ayden Angulo MD Primary Care Provider Unava ilable Reason for Visit * Reason Onset Date Comments Medications Refill 04/28/2022 Medications Refill 06/19/2022 Encounter Details Date Type Department Care Team (Late st Contact Info) Description 04/28/2022 Refill [facility] Family Medicine [facility] [address] [facility], [facility] [address] [place] [address] Kayla Ambriz, ELECTRICAL MECHANICAL TECHNICIAN [address] [facility] [address] [place] [address] Medications Refill; Medications Refill Social [...] Anxiety. Daily Max 2 mg 16 Tablet 04/30/2022 06/16/2022 documented in this encounter Miscellaneous Notes * Telephone Encounter - Kaia Ward RN - 04/29/2022 1416 EDT vpms filled 03/25/22 for 30 days * Telephone Encounter - Priscilla Milton RN - 04/29/2022 1138 EDT Medication(s) Requested: Ativan 0.5mg Preferred Pharmacy: [facility] in [place], [place] Is patient out of medication? Unknown Last Refill Date: 03/25/2022 for 16 tabs Last Visit Date with Ordering Provider: 04/01/22 via video Next Non-Acute Visit Date Scheduled : 05/14/2022 PLEASE CHECK ON VPMS documented in this [...] for Anxiety. Daily Max 2 mg Reorder 03/25/2022 04/28/2022 documented as of this encounter Care Teams Craft Superintendent Relationship Specialty Start Date End Date Ayden Angulo MD PCP - General 07/28/19 01/28/23 documented as of this encounter
--- OUTSIDE RECORDS SUMMARY | 2024-06-16 00:25 | XMS_ITS | Encounter Summary ---
Author Organization [facility] Address [address] [place] [address] Care Team Providers Care In School Suspension Coordinator Name Role Phone Ayden Angulo MD Primary Care Provider Unava ilable Reason for Visit * Reason Onset Date Comments Anxiety 11/26/2021 Encounter Details Date Type Department Care Team (Late st Contact Info) Description 11/26/2021 Telephone [facility] Medicine [facility] [address] , [address] [place] [address] Ayden Angulo MD Anxiety Social History Tobacco Use Types Packs/Day Years [...] Anxiety. Daily Max 2 mg 30 Tablet 11/26/2021 01/07/2022 documented in this encounter Miscellaneous Notes * Telephone Encounter - Daylin Guy RN - 11/26/2021 1357 EST Patient notified. * Telephone Encounter - Ayden Angulo MD - 11/26/2021 1352 EST refilled * Telephone Encounter - Daylin Guy RN - 11/26/2021 1033 EST [facility] Primary Care SBAR Nurse Triage call note: Situation: Increased anxiety Background: Increasing anxiety over past month. Daily panic attacks. Is seeing a therapist, but hertechniques are no longer helping (tapping, etc). Assessment: She is taking fluoxetine 40 mg daily. This is not on her active med list, but she says the celexa did not work so she went back to the fluoxetine. She denies suicidal ideation, and is feeling safe at home. Is having to take her lorazepam 2 tabs BID. Recommendation: OV needed to discuss increase in symptoms. Booked for 12/02 ZOOM. She is asking about a refill of lorazepam to [facility] in [place]. To [facility]. Per [facility], was last filled on 11/04/21 for #25 to last 30 days. Technically not due until 12/04, but she is needing to take 4 tabs per day * Telephone Encounter - Starr Bro - 11/26/2021 0912 EST Patients anxiety has increased over the past month. She is more panicky and has been having to takemore of her Citalopram. She spoke with her therapist in regards to this and advised to reach out toher pcp. documented in this encounter Plan of Treatment Not on file documented as of this encounter Visit Diagnoses Not on filedocumented in this encounter Discontinued Medications Medication Sig Discontinue Reason Start Date End Da te LORazepam (ATIVAN) 0.5 mg tablet Take 2 Tablets by mouth 2 times daily as needed for up to 30 days for Anxiety. Daily Max 2 mg Reorder 11/04/2021 11/26/2021 documented as of this encounter Care Teams In School Suspension Coordinator Relationship Specialty Start Date End Date Ayden Angulo MD PCP - General 07/28/19 01/28/23 documented as of this encounter
--- OUTSIDE RECORDS SUMMARY | 2024-06-16 00:25 | XMS_ITS | Encounter Summary ---
Author Organization [facility] Address [address] [place] [address] Care Team Providers Care Land Title Examiner Name Role Phone Ayden Angulo MD Primary Care Provider Unava ilable Reason for Visit * Reason Onset Date Comments Other Medications Refill 02/26/2022 Encounter Details Date Type Department Care Team (Late st Contact Info) Description 10/18/2021 Refill [facility] Family Medicine [address], [facility] [[email or web address] [address] [place], [place] [id number] Sue Kerns, [facility] [address] [facility] [address] [place] [address] Other; Medications Refill Social History Tobacco Use [...] Dispensed Refills Start Date End Da te citalopram (CELEXA) 20 mg tablet TAKE ONE TABLET BY MOUTH ONE TIME DAILY 30 Tablet 11 10/20/2021 12/02/2021 documented in this encounter Miscellaneous Notes * Telephone Encounter - Priscilla Milton RN - 10/20/2021 1323 EST Surescripts requesting refill on celexa 20 mg tabs JAMEL 10/14/2021 NOV none Last refill 09/18/2021 documented in this encounter Plan of Treatment Not on file documented as of this encounter Visit Diagnoses Not on filedocumented in this encounter Discontinued Medications Medication Sig Discontinue Reason Start Date End Da te FLUoxetine (PROZAC) 40 mg capsule TAKE ONE CAPSULE BY MOUTH ONE TIME DAILY 04/21/2021 10/20/2021 citalopram (CELEXA) 20 mg tablet Take 20 mg by mouth daily. 09/18/2021 10/20/2021 documented as of this encounter Care Teams Land Title Examiner Relationship Specialty Start Date End Date Ayden Angulo MD PCP - General 07/28/19 01/28/23 documented as of this encounter
--- OUTSIDE RECORDS SUMMARY | 2024-06-16 00:25 | XMS_ITS | Encounter Summary ---
Author Organization [facility] Address [address] [place] [address] Care Team Providers Care Hygiene Assistant Name Role Phone Ayden Angulo MD Primary Care Provider Unava ilable Reason for Visit * Reason Onset Date Comments Medication Management 02/06/2022 patient wi ll be out of this medication this weekend Encounter Details Date Type Department Care Team (Late st Contact Info) Description 02/06/2022 Telephone [facility] Family Medicine [facility] [address] , [address] [place] [address] Ayden Angulo MD Medication Management (patient will be out of this medication this weekend ) Social History Tobacco Use Types Packs/Day [...] Pain. Daily Max: 2 Tablets 56 Tablet 02/09/2022 03/09/2022 documented in this encounter Miscellaneous Notes * Telephone Encounter - Debbie Linda LPN - 02/06/2022 1454 EDT [facility] CONTROLLED MEDICATION REFILL Medication: hydrocodone Medication, dose, directions verified: yes Pharmacy verified: yes Last office visit: 01/20/2022 Next office visit: none Prescription due to be filled: 02/09/2022 Last urine drug screen: Due at next OV Last VPMS: 02/06/2022 -Per VPMS pt last filled medication on 01/12/2022 for 28d supply (#56 tabs) with no refills Last CSA: Due at next OV Pt should have enough supply to cover until 02/09/2022 based on last fill. If she is out early then she has been overusing. TE to TC * Telephone Encounter - Deloris Rod - 02/06/2022 1451 EDT Pt called, is out of RX. * Telephone Encounter - Ami Avilez - 02/06/2022 1342 EDT Pt calling needs refill on her hydrocodone sent to [facility] in [facility] documented in this encounter Plan of Treatment Not on file documented as of this encounter Visit Diagnoses Not on filedocumented in this encounter Discontinued Medications Medication Sig Discontinue Reason Start Date End Da te HYDROcodone-acetaminophe n (NORCO) 10-325 mg tablet Take 1 Tablet by mouth every 6 hours as needed for up to 28 days for Pain. Daily Max: 2 Tablets Reorder 01/12/2022 02/06/2022 documented as of this encounter Care Teams Hygiene Assistant Relationship Specialty Start Date End Date Ayden Angulo MD PCP - General 07/28/19 01/28/23 documented as of this encounter
--- OUTSIDE RECORDS SUMMARY | 2024-06-16 00:25 | XMS_ITS | Encounter Summary ---
Author Organization [facility] Address [address] [place] [address] Care Team Providers Care Acid Remover Name Role Phone Ayden Angulo MD Primary Care Provider Unava ilable Reason for Visit * Reason Onset Date Comments Other Medications Refill 06/19/2022 Encounter Details Date Type Department Care Team (Late st Contact Info) Description 03/25/2022 Refill [facility] Medicine [facility] [address] , [address] [place] [address] Ayden Angulo MD Other; Medications Refill Social [...] exceed 20 lozenges per day. 144 Lozenge 03/25/2022 06/23/2022 documented in this encounter Miscellaneous Notes * Telephone Encounter - Priscilla Milton RN - 03/25/2022 1354 EDT Refill request for nicotine lozenge Last filled 01/20/2022 Dosage/directions verified JAMEL 03/04/2022 NOV 04/01/2022 documented in this encounter Plan of Treatment Not on file documented as of this encounter Visit Diagnoses Not on filedocumented in this encounter Discontinued Medications Medication Sig Discontinue Reason Start Date End Da te nicotine polacrilex (COMMIT) 4 mg lozenge Let one lozenge dissolve in your mouth every hour as needed. Do not exceed 20 lozenges per day. 01/20/2022 03/25/2022 documented as of this encounter Care Teams Acid Remover Relationship Specialty Start Date End Date Ayden Angulo MD PCP - General 07/28/19 01/28/23 documented as of this encounter
--- OUTSIDE RECORDS SUMMARY | 2024-06-16 00:25 | XMS_ITS | Encounter Summary ---
Author Organization [facility] Address [address] [place] [address] Care Team Providers Care Back End Engineer Name Role Phone Ayden Angulo MD Primary Care Provider Unava ilable Reason for Visit * Reason Comments Facial Droop Encounter Details Date Type Department Care Team (Latest Contact Info) Description 03/11/2022 13:00 EDT Telemedicine [facility] Medicine [address], [address] [place] [address] Carlos Abdalla MD [address] [facility] [address] [place] [address] Cerebrovascular accident (CVA), unspecified mechanism (HCC-CMS) (HCC) (HCC-CMS) (Primary Dx); Right-sided Loyola's palsy Social History Tobacco Use Types Packs/Day Years [...] as of this encounter Progress Notes * Carlos Abdalla MD - 03/11/2022 1300 EDT [facility] Telephone Visit Verbal consent: The concept of [...] a 41 y.o. female fup ER visit 03/04 for bells palsy following facial rash and thought possibly secondary to Lyme disease and pt treated with doxycyline and supportive care. Improvingand using some artificial tears but they seem to cause eye burning. requesitng PT referral to help with right sided weakness after stroke 2018 and this facila weakness which was also part the CVA in 2019 I have reviewed patient's tobacco history: reports that she has been smoking cigarettes. She has been smoking about 0.75 packs per day. She has never used smokeless tobacco. I have reviewed current problem list and current medications. ROS: CV - no CP or worsening OROZCO GI - no N/V/D/C or stool change - no urinary frequency dysuria or hematuria MS - no worsening joint pains ENDO - no cold/heat intolerance or weight change Physical Examination Home Vitals: No vital signs were obtained Pain: 2/10 Facial burning in eye Imaging/Test Review none Diagnosis 1. Cerebrovascular accident (CVA), unspecified mechanism (HCC-CMS) ([facility]) AMB CONS/FOLLOW UP PHYSICAL THERAPY - [facility] 2. Right-sided Loyola's palsy AMB CONS/FOLLOW UP PHYSICAL THERAPY - [facility] Medical Decision Making Allie Small is a 41 y.o. female with a chief complaint of facial weakness and discussed supportive care and changing eye drops to thera tears, contacting us if not improving and the PT referral [facility] in [place]. Plan: 1. Pt referral and supportive care for Loyola's reviewed Patient initiated phone contact with the office: [...] in the progress note. Carlos Abdalla MD 03/11/2022 documented in this encounter Plan of Treatment Not on file documented as of this encounter Visit Diagnoses Diagnosis Cerebrovascular accident (CVA), unspecified mechanism ([facility]-CMS)- Primary Right-sided Loyola's palsy documented in this encounter Care Teams Back End Engineer Relationship Specialty Start Date End Date Ayden Angulo MD PCP - General 07/28/19 01/28/23 documented as of this encounter
--- OUTSIDE RECORDS SUMMARY | 2024-06-16 00:25 | XMS_ITS | Encounter Summary ---
Author Organization [facility] Address [address] [place] [address] Care Team Providers Care Skull Chopper Name Role Phone Ayden Angulo MD Primary Care Provider Unava ilable Reason for Visit * Reason Onset Date Comments Medications Refill 03/31/2022 Follow-up 04/03/2022 Encounter Details Date Type Department Care Team (Late st Contact Info) Description 03/31/2022 Refill [facility] Family Medicine [facility] [address], [address] [place] [address] Ayden Angulo MD Medications Refill; Follow-up Social History Tobacco Use Types Packs/Day [...] needed for Opioid Reversal. 1 Each 1 03/31/2022 04/27/2024 HYDROcodone-acetaminophe n (NORCO) 10-325 mg tablet Take 1 Tablet by mouth every 6 hours as needed for up to 28 days for Pain. Daily Max: 2 Tablets 56 Tablet 04/06/2022 04/28/2022 documented in this encounter Miscellaneous Notes * Telephone Encounter - Preeti Roberto - 04/03/2022 1616 [address] Apt booked * Telephone Encounter - Daylin Guy RN - 03/31/2022 1309 EDT To PSS pool for scheduling. * Telephone Encounter - Sue Kerns DNP - 03/31/2022 1227 EDT Script sent w appropriate fill date please schedule f'up w PCP * Telephone Encounter - Debbie Linda LPN - 03/31/2022 1122 EDT [facility] CONTROLLED MEDICATION REFILL Medication: hydrocodone Medication, dose, directions verified: yes Pharmacy verified: yes [facility]: [facility] Prescription due to be filled: 04/06/2022 Last urine drug screen: 02/07/2021 Last VPMS: 03/31/2022 -Per VPMS pt last filled mediation on 03/09/2022 for 28d supply (#56 tabs) with no refills. Last CSA: 02/07/2021 Pt needs OV for CSA/UDS. Pt also due for updated naloxone Rx per protocol, order pended. Hydrocodone Rx pended with appropriate fill date. * Telephone Encounter - Debbei Linda LPN - 03/31/2022 1121 EDTFrom: Allie Small To: Office of Ayden Angulo MD Sent: 03/31/2022 8:47 EDT Subject: Medication Renewal Request Refills have been requested for the following medications: HYDROcodone-acetaminophen (NORCO) 10-325 mg tablet [Ayden Angulo MD] Preferred pharmacy: [id number] documented in this encounter Plan of Treatment Not on file documented as of this encounter Visit Diagnoses Not on filedocumented in this encounter Discontinued Medications Medication Sig Discontinue Reason Start Date End Da te HYDROcodone-acetaminophe n (NORCO) 10-325 mg tablet Take 1 Tablet by mouth every 6 hours as needed for up to 28 days for Pain. Daily Max: 2 Tablets Reorder 03/09/2022 03/31/2022 naloxone (NARCAN) 4 mg/actuation nasal spray 1 [place] by nasal route as needed for Opioid Reversal. Reorder 11/13/2020 03/31/2022 documented as of this encounter Care Teams Skull Chopper Relationship Specialty Start Date End Date Ayden Angulo MD PCP - General 07/28/19 01/28/23 documented as of this encounter
--- OUTSIDE RECORDS SUMMARY | 2024-06-16 00:25 | XMS_ITS | Encounter Summary ---
Author Organization [facility] Address [address] [place] [address] Care Team Providers Care Entry Level Business Analyst Name Role Phone Ayden Angulo MD Primary Care Provider Unava ilable Reason for Visit * Reason Onset Date Comments Furniture Dipper Message 01/04/2022 Hand Pain 01/04/2022 Encounter Details Date Type Department Care Team (Late st Contact Info) Description 01/04/2022 Telephone [facility] Medicine [address] [address] Carlos Biggs MD [address] [place] [address] [address] Furniture Dipper Message; Hand Pain Social History Tobacco Use Types Packs/Day [...] encounter Miscellaneous Notes * Telephone Encounter - Carlos Biggs MD - 01/04/2022 2301 EDT Pt called this morning with c/o hand pain. She struck it on something. Feels one of the knuckles onher hand may be broken. She was not clear on what knuckle it was. We discussed that if she had a fracture it may need surgical fixation or realignment. We discussed that she may need imaging. She stated she would pursue this. documented in this encounter Plan of Treatment Not on file documented as of this encounter Visit Diagnoses Not on filedocumented in this encounter Care Teams Entry Level Business Analyst Relationship Specialty Start Date End Date Ayden Angulo MD PCP - General 07/28/19 01/28/23 documented as of this encounter
--- OUTSIDE RECORDS SUMMARY | 2024-06-16 00:25 | XMS_ITS | Encounter Summary ---
Author Organization [facility] Address [address] [place] [address] Care Team Providers Care Christian Ministries Professor Name Role Phone Ayden Angulo MD Primary Care Provider Unava ilable Reason for Visit * Reason Onset Date Comments Medication Management 12/12/2021 Encounter Details Date Type Department Care Team (Late st Contact Info) Description 12/12/2021 Telephone [facility] Family Medicine [facility] [address] , [facility] [address] [place] [address] Ayden Angulo MD Medication Management Social History Tobacco Use Types [...] Telephone Encounter - Daylin Guy RN - 12/15/2021 0809 EDT Patient notified. * Telephone Encounter - Ayden Angulo MD - 12/12/2021 1639 EDT We cannot do early refills. In future, if she feels the need to take more, must check in and discuss rather than put herself inthis position of running out * Telephone Encounter - Debbie Linda LPN - 12/12/2021 1620 EDT [facility] CONTROLLED MEDICATION REFILL Medication: hydrocodone Medication, dose, directions verified: yes Pharmacy verified: yes Last office visit: 12/02/2021 Next office visit: none Prescription due to be filled: 12/15/2021 Last urine drug screen: Due Last VPMS: 12/12/2021 -Per VPMS pt last filled medication on 11/17/2021 for 28d supply (#56 tabs) Last CSA: Due Pt does not have a recent hx of early refill requests. She is overdue for UDS/CSA, narcan Rx (concurrent benzo and opioid use). TE to TC for review. * Telephone Encounter - Deloris Rod - 12/12/2021 1608 EDT Pt called back, nursing to follow up with TC on early refill. * Telephone Encounter - Lou Cheng - 12/12/2021 1247 EDT Pt states she is not due for a refill on her hydrocodone until Wednesday, states she has had to take acouple extra as she tweaked her knee getting out of the truck. Pt is requesting a refill for today as she is in pain and feeling ill since not taking. [place] [facility] documented in this encounter Plan of Treatment Not on file documented as of this encounter Visit Diagnoses Not on filedocumented in this encounter Care Teams Christian Ministries Professor Relationship Specialty Start Date End Date Ayden Angulo MD PCP - General 07/28/19 01/28/23 documented as of this encounter
--- OUTSIDE RECORDS SUMMARY | 2024-06-16 00:25 | XMS_ITS | Encounter Summary ---
Author Organization [facility] Address [address] [place] [address] Care Team Providers Care Protective Signal Installer Name Role Phone Ayden Angulo MD Primary Care Provider Unava ilable Reason for Visit * Reason Onset Date Comments Eye Pain 04/08/2022 w/ pressure Encounter Details Date Type Department Care Team (Late st Contact Info) Description 04/08/2022 Telephone [facility] [place] Medicine [facility] [address] [place] [address] Ayden Angulo MD Eye Pain (w/ pressure) Social History Tobacco Use Types Packs/Day Years [...] Telephone Encounter - Sue Kerns DNP - 04/08/2022 1442 EDT Noted * Telephone Encounter - Mitali Sena RN - 04/08/2022 1428 EDT [facility] Primary Care SBAR Nurse Triage call note: Situation: Eye pain and pressure, like a tooth ache, with touch, sneeze, cough. Discomfort worse at night. Some redness in eye, slight swelling, itchy, eye a little crusty in the morning. Pt deniesvision changes. Background: 1 week ago pt go liquid eye liner in her eye and used a Q-tip and make up remover wipe to remove the eyeliner that spilled into the eye. No current eye doctor. Assessment: abrasion to eye? Recommendation: Per conversation with RG, pt advised to go to [facility]. Pt states she will go to [facility]. * Telephone Encounter - Rosemarie Jones - 04/08/2022 0942 EDT Pt reporting intense eye pain and pressure after using liquid eyeliner a week or so ago, wakes pt up at night - please advise on scheduled pt would prefer video if appropriate documented in this encounter Plan of Treatment Not on file documented as of this encounter Visit Diagnoses Not on filedocumented in this encounter Care Teams Protective Signal Installer Relationship Specialty Start Date End Date Ayden Angulo MD PCP - General 07/28/19 01/28/23 documented as of this encounter
--- OUTSIDE RECORDS SUMMARY | 2024-06-16 00:25 | XMS_ITS | Encounter Summary ---
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 21 Tablet 1 07/28/2021 12/02/2021 documented in this encounter Progress Notes * Ayden Angulo MD - 07/28/2021 1300 EST [facility] [place] Today's visit was provided through [...] or auxiliary staff: yes. Subjective: Chief Complaint(s): No chief complaint on file. HPI: Allie has been having a persistent frontal headache. It is made worse with moving around and lying down on that side. It feels like a pressure behind her eyes but also her forehead. She has terrible problems with stiffness of the muscles of her neck. She is going through lots of stress right now including that her 18-year-old was suicidal and now has cut off contact with her. She has been taking ibuprofen intermixed with diclofenac continuously for months due to this headache as well as Goody packs. She continues to smoke. She is not exercising. She has become more reclusive staying indoors now not exercising at all. She is in contact with her therapist on a regular basis and this ishelpful. She spends her days sitting on her phone which causes her to be the [facility]. I have reviewed patient's tobacco history: reports that she has been smoking cigarettes. She has been smoking about 0.75 packs per day. She has never used smokeless tobacco. I have reviewed current problem list and current medications. ROS: ROS See above Objective: Examination: Home Vitals: There were no vitals taken for this visit. Pertinent exam findings: appears well and mood and affect appropriate Data reviewed with patient: Reviewed and/or ordered active problem list, medication list, notes from last encounter tests Assessment & Plan: Diagnoses and all orders for this visit: Depression with anxiety Comments: Counseling around issues with her teenage son. Continue to rely on therapist. 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 Will use heat to the back of her neck, gentle stretches, muscle relaxant, as well as good posture and more frequen Other orders - diclofenac (VOLTAREN) 75 mg EC tablet - cyclobenzaprine (FLEXERIL) 5 mg tablet; Take 1 Tablet by mouth every 8 hours as needed for up to 7 days for Muscle Spasms. A total of 25 minutes was spent on this encounter on the day of this encounter. The following individuals and their role did participate in today's encounter visit: Provider: Ayden Angulo MD Patient Reminder: Use normal new/established office E/M codes based on [id number] (MDM) OR time (if not billing on time DELETE time statement) AND please include GT modifier for video visits [delete these reminders] documented in this encounter Plan of Treatment Not on file documented as of this encounter Visit Diagnoses Diagnosis Depression with anxiety- Primary Dysthymic disorder Connective tissue disease overlap syndrome (HCC-CMS) Other specified diffuse disease of connective tissue Chronic tension-type headache, not intractable Chronic tension type headache documented in this encounter Historical Medications * This list may reflect changes made after this encounter. Medication Sig Dispensed Refills Start Date End Date diclofenac (VOLTAREN) 75 mg EC tablet 04/202112/02/2021 added in this encounter Care Teams Refractory Manager Relationship Specialty Start Date End Date Ayden Angulo MD PCP - General 07/28/19 01/28/23 documented as of this encounter
--- OUTSIDE RECORDS SUMMARY | 2024-06-16 00:25 | XMS_ITS | Encounter Summary ---
Author Organization [facility] Address [address] [place] [address] Care Team Providers Care Senior Systems Developer Name Role Phone Ayden Angulo MD Primary Care Provider Unava ilable Reason for Visit * Reason Onset Date Comments Headache 01/12/2022 Encounter Details Date Type Department Care Team (Late st Contact Info) Description 01/12/[address] [facility] Family Medicine [place] [id number] [place] [address] Ayden Angulo MD Headache Social History Tobacco Use Types Packs/Day Years [...] Dispensed Refills Start Date End Da te predniSONE (DELTASONE) 20 mg tablet Take 2 Tablets by mouth daily for 7 days. 14 Tablet 01/12/2022 01/19/2022 documented in this encounter Miscellaneous Notes * Telephone Encounter - Debbie Linda LPN - 01/20/2022 0922 EDT Called and spoke with pt, she reports that her Bps have been good, but she continues with on and off head/neck aches. Would like to f/u with TC on it, scheduled for video visit at 1400 via Zoom. Meeting ID: [id number] Password: [id number] * Telephone Encounter - Mitali Sena RN - 01/12/2022 1712 EDT Pt notified per TC note and verbalized understanding. Pt will get a BP cuff and call back with BP reading. * Telephone Encounter - Ayden Angulo MD - 01/12/2022 1626 EDT Will add prednisone for what sounds like a transformed migraine. She should get her bp checked to be sure is okay. * Telephone Encounter - Mitali Sena RN - 01/12/2022 1533 EDT [facility] Primary Care SBAR Nurse Triage call note: Situation: headache and neck discomfort for 4-5 days. Headache located in back of eyes and in neck.Light and reading make headache worse. Whole neck hurting, feels tight. Pt taking Killawog 10mg 2x day and methocarbamol 750 mg every 6 hrs. The med's take the edge of the headache and neck discomfort but doesn't get rid of it. Ice, heat and icy hot not helping. Background: hx of stroke, migraine, previous neck strain from looking down at phone a lot. Assessment: neck/head pain Recommendation: TC-what do you recommend * Telephone Encounter - Deloris Rod - 01/12/2022 1427 EDT Pt has had headaches off and on for 4-5 days. Pt states she has a history of a stroke. documented in this encounter Plan of Treatment Not on file documented as of this encounter Visit Diagnoses Not on filedocumented in this encounter Care Teams Senior Systems Developer Relationship Specialty Start Date End Date Ayden Angulo MD PCP - General 07/28/19 01/28/23 documented as of this encounter
--- OUTSIDE RECORDS SUMMARY | 2024-06-16 00:25 | XMS_ITS | Encounter Summary ---
Author Organization [facility] Address [address] [place] [address] Care Team Providers Care Metal Drilling Machine Operator Name Role Phone Ayden Angulo MD Primary Care Provider Unava ilable Reason for Visit * Reason Onset Date Comments Medications Refill 03/24/2022 Encounter Details Date Type Department Care Team (Late st Contact Info) Description 03/24/2022 Refill [facility] Family Medicine [facility] [place] [address] [place] [address] Ayden Angulo MD Medications Refill Social History [...] as needed for Muscle Spasms. 20 Tablet 03/25/2022 09/25/2022 documented in this encounter Miscellaneous Notes * Telephone Encounter - Priscilla Milton RN - 03/25/2022 1418 EDT Refill request for robaxin Last ordered 12/18/2021 JAMEL 03/11/2022 NOV 04/01/2022 Dosage/directions verified documented in this encounter Plan of Treatment Not on file documented as of this encounter Visit Diagnoses Not on filedocumented in this encounter Discontinued Medications Medication Sig Discontinue Reason Start Date End Da te methocarbamoL (ROBAXIN) 750 mg tablet Take 1 Tablet by mouth every 6 hours as needed for Muscle Spasms. Reorder 12/18/2021 03/24/2022 documented as of this encounter Care Teams Metal Drilling Machine Operator Relationship Specialty Start Date End Date Ayden Angulo MD PCP - General 07/28/19 01/28/23 documented as of this encounter
--- OUTSIDE RECORDS SUMMARY | 2024-06-16 00:25 | XMS_ITS | Encounter Summary ---
Author Organization [facility] Address [address] [place] [address] Care Team Providers Care Etiology Teacher Name Role Phone Ayden Angulo MD Primary Care Provider Unava ilable Reason for Visit * Reason Comments Other Encounter Details Date Type Department Care Team (Late st Contact Info) Description 05/21/2021 Refill [facility] Family Medicine [facility] [address] [place] [address] Ayden Angulo MD Other Social History Tobacco Use Types Packs/Day Years [...] MOUTH ONE TIME DAILY 90 capsule 3 05/23/2021 05/06/2022 documented in this encounter Miscellaneous Notes * Telephone Encounter - Simran Wheeler RN - 05/23/2021 1557 EDT Omeprazole refill request JAMEL 02/07/21 NOV 06/12/21 Rx sent as tabbed documented in this encounter Plan of Treatment Not on file documented as of this encounter Visit Diagnoses Not on filedocumented in this encounter Discontinued Medications Medication Sig Discontinue Reason Start Date End Da te omeprazole (PRILOSEC) 20 mg capsule TAKE ONE CAPSULE BY MOUTH ONE TIME DAILY 12/10/2020 05/23/2021 documented as of this encounter Care Teams Etiology Teacher Relationship Specialty Start Date End Date Ayden Angulo MD PCP - General 07/28/19 01/28/23 documented as of this encounter
--- OUTSIDE RECORDS SUMMARY | 2024-06-16 00:25 | XMS_ITS | Encounter Summary ---
Author Organization [facility] Address [address] [place] [address] Care Team Providers Care Police District Switchboard Operator Name Role Phone Ayden Angulo MD Primary Care Provider Unava ilable Reason for Visit * Reason Onset Date Comments Medication Management 01/06/2022 Refills No rco & Ativan Encounter Details Date Type Department Care Team (Late st Contact Info) Description 01/06/2022 Telephone [facility] Family Medicine [facility] [address] [place] [address] Ayden Angulo MD Medication Management (Refills Norris & Ativan) Social History Tobacco Use Types Packs/Day Years [...] Anxiety. Daily Max 2 mg 30 Tablet 01/08/2022 02/19/2022 HYDROcodone-acetaminophe n (NORCO) 10-325 mg tablet Take 1 Tablet by mouth every 6 hours as needed for up to 28 days for Pain. Daily Max: 2 Tablets 56 Tablet 01/12/2022 02/06/2022 documented in this encounter Miscellaneous Notes * Telephone Encounter - Ayden Angulo MD - 01/08/2022 0804 EDT done * Telephone Encounter - Daylin Guy RN - 01/07/2022 0948 EDT Last appt 12/02/21, no follow up scheduled. UDS on file from 02/07/21 as well as CSA. Per VPMS the Norris was last filled on 12/15 for 28 days, will be due 01/12. The lorazepam was last filled on 11/27/21 for #30 tabs. * Telephone Encounter - Gage Ford MA - 01/06/2022 1602 EDT Pt called Rx line requesting refills: -LORazepam (ATIVAN) 0.5 mg tablet -HYDROcodone-acetaminophen (NORCO) 10-325 mg tablet Please review: [place], [place] documented in this encounter Plan of Treatment Not on file documented as of this encounter Visit Diagnoses Not on filedocumented in this encounter Discontinued Medications Medication Sig Discontinue Reason Start Date End Da te HYDROcodone-acetaminophe n (NORCO) 10-325 mg tablet Take 1 Tablet by mouth every 6 hours as needed for up to 28 days for Pain. Daily Max: 2 Tablets Reorder 12/15/2021 01/07/2022 LORazepam (ATIVAN) 0.5 mg tablet Take 2 Tablets by mouth 2 times daily as needed for up to 30 days for Anxiety. Daily Max 2 mg Reorder 11/26/2021 01/07/2022 documented as of this encounter Care Teams Police District Switchboard Operator Relationship Specialty Start Date End Date Ayden Angulo MD PCP - General 07/28/19 01/28/23 documented as of this encounter
--- OUTSIDE RECORDS SUMMARY | 2024-06-16 00:25 | XMS_ITS | Encounter Summary ---
Author Organization [facility] Address [address] [place] [address] Care Team Providers Care Drafter Castings Name Role Phone Ayden Angulo MD Primary Care Provider Unava ilable Reason for Visit * Reason Onset Date Comments Medications Refill 05/30/2021 Encounter Details Date Type Department Care Team (Late st Contact Info) Description 05/30/2021 Refill [facility] Family Medicine [facility] [address] [place] [address] Kaia Ward RN Medications Refill Social History Tobacco Use Types [...] Pain. Daily Max: 2 Tablets 56 Tablet 05/31/2021 06/12/2021 documented in this encounter Miscellaneous Notes * Telephone Encounter - Guy, Daylin, RN - 05/30/2021 1511 EDT Last appt 02/07/21, next appt 06/12/21. Last uds on file from 02/07/21 as well as CSA. Per [facility]MS check today, last filled on 05/03 for 28 days. Is due tomorrow- 05/31 * Telephone Encounter - Kaia Ward RN - 05/30/2021 0817 EDT Refill line needs hydrocodone filled at [facility] [place] documented in this encounter Plan of Treatment Not on file documented as of this encounter Visit Diagnoses Not on filedocumented in this encounter Discontinued Medications Medication Sig Discontinue Reason Start Date End Da te HYDROcodone-acetaminophe n (NORCO) 10-325 mg tablet Take 1 Tablet by mouth every 6 hours as needed for up to 28 days for Pain. Daily Max: 2 Tablets Reorder 05/03/2021 05/30/2021 documented as of this encounter Care Teams Drafter Castings Relationship Specialty Start Date End Date Ayden Angulo MD PCP - General 07/28/19 01/28/23 documented as of this encounter
--- OUTSIDE RECORDS SUMMARY | 2024-06-16 00:25 | XMS_ITS | Encounter Summary ---
Author Organization [facility] Address [address] [place] [address] Care Team Providers Care Straightener Hand Name Role Phone Ayden Angulo MD Primary Care Provider Unava ilable Reason for Visit * Reason Onset Date Comments Medications Refill 11/04/2021 Encounter Details Date Type Department Care Team (Late st Contact Info) Description 11/04/2021 Refill [facility] Family Medicine [facility] [address] [place] [address] Ayden Angulo MD Medications Refill Social History [...] days for Anxiety. Daily Max 2 mg 25 Tablet 11/04/2021 11/26/2021 documented in this encounter Miscellaneous Notes * Telephone Encounter - Kriss Jacobs RN - 11/04/2021 1517 EST [facility] CONTROLLED MEDICATION REFILL Medication: lorazepam Medication, dose, directions verified: lorazepam 0.5 mg, 2 tab, PO, BID PRN Pharmacy verified: [facility] Last office visit: 10/14/2021 Next office visit: None Prescription due to be filled: due Last urine drug screen: 02/07/2021 Last VPMS: 11/04/2021 Last CSA: 02/07/2021 TC- Pended per last Rx. Ok to send? * Telephone Encounter - Gage Ford MA - 11/04/2021 0937 EST Pt called Rx line. Requested Prescriptions Pending Prescriptions Disp Refills ??? LORazepam (ATIVAN) 0.5 mg tablet Please review. documented in this encounter Plan of Treatment Not on file documented as of this encounter Visit Diagnoses Not on filedocumented in this encounter Discontinued Medications Medication Sig Discontinue Reason Start Date End Da te LORazepam (ATIVAN) 0.5 mg tablet Take 2 Tablets by mouth 2 times daily as needed for up to 30 days for Anxiety. Daily Max 2 mg Reorder 09/12/2021 11/04/2021 documented as of this encounter Care Teams Straightener Hand Relationship Specialty Start Date End Date Ayden Angulo MD PCP - General 07/28/19 01/28/23 documented as of this encounter
--- OUTSIDE RECORDS SUMMARY | 2024-06-16 00:25 | XMS_ITS | Encounter Summary ---
Author Organization [facility] Address [address] [place] [address] Care Team Providers Care Computer Patternmaker Name Role Phone Ayden Angulo MD Primary Care Provider Unava ilable Reason for Visit * Reason Onset Date Comments Arm Pain 12/18/2021 Encounter Details Date Type Department Care Team (Late st Contact Info) Description 12/18/2021 Telephone [facility] Family Medicine [facility] [address] [place] [address] Ayden Angulo MD Arm Pain Social History Tobacco Use Types Packs/Day [...] as needed for Muscle Spasms. 20 Tablet 12/18/2021 03/24/2022 documented in this encounter Miscellaneous Notes * Telephone Encounter - Daylin Guy RN - 12/18/2021 1254 EDT Patient notified. * Telephone Encounter - Ayden Angulo MD - 12/18/2021 1239 EDT Call. sent * Telephone Encounter - Daylin Guy RN - 12/18/2021 1209 EDT TC- See note below. Patient is requesting muscle relaxer. She does have methocarbamol on her med list, last sent as tabbed on 10/14/21. Would you be willing to send in again for her? * Telephone Encounter - Starr Bro - 12/18/2021 1137 EDT Patient pulled a muscle in her RT arm. She took a muscle relaxer that she had which helped. She is not able to sleep and when she even moves slightly is hurts and she ends up with a headache. She would like a refill called into the pharmacy. documented in this encounter Plan of Treatment Not on file documented as of this encounter Visit Diagnoses Not on filedocumented in this encounter Discontinued Medications Medication Sig Discontinue Reason Start Date End Da te methocarbamoL (ROBAXIN) 750 mg tablet Take 1 Tablet by mouth every 6 hours as needed for Muscle Spasms. Reorder 10/14/2021 12/18/2021 documented as of this encounter Care Teams Computer Patternmaker Relationship Specialty Start Date End Date Ayden Angulo MD PCP - General 07/28/19 01/28/23 documented as of this encounter
--- OUTSIDE RECORDS SUMMARY | 2024-06-16 00:25 | XMS_ITS | Encounter Summary ---
Author Organization [facility] Address [address] [place] [address] Care Team Providers Care First Line Production Supervisor Name Role Phone Ayden Angulo MD Primary Care Provider Unava ilable Reason for Visit * Reason Comments Other Encounter Details Date Type Department Care Team (Late st Contact Info) Description 07/18/2021 Refill [facility] Family Medicine [facility] [address] [place] [address] Ayden Angulo MD Other Social History Tobacco [...] BY MOUTH ONE TIME DAILY 90 Tablet 07/21/2021 10/20/2021 documented in this encounter Miscellaneous Notes * Telephone Encounter - Kriss Jacobs RN - 09/18/2021 0920 EST Called and spoke to patient regarding ordered labs. Educated regarding need to fast prior to lab work and that atorvastatin was refilled. * Telephone Encounter - Ayden Angulo MD - 07/21/2021 1628 EDT Set up labs * Telephone Encounter - Debbie Linda LPN - 07/21/2021 1414 EDT [facility] MEDICATION REFILL Medication: atorvastatin Medication, dose, directions verified: yes Pharmacy verified: yes Last office visit: 06/12/2021 Next office visit: 07/28/2021 Pt due for lipid profile, order pended. TE to TC to sign if agreeable, then nursing will relay to pt that fasting lab work ordered. documented in this encounter Plan of Treatment Not on file documented as of this encounter Visit Diagnoses Diagnosis Screening for heart disease- Primary Screening for other and unspecified cardiovascular conditions documented in this encounter Discontinued Medications Medication Sig Discontinue Reason Start Date End Da te atorvastatin (LIPITOR) 40 mg tablet Take 1 Tab by mouth daily. 04/30/2020 07/21/2021 documented as of this encounter Care Teams First Line Production Supervisor Relationship Specialty Start Date End Date Ayden Angulo MD PCP - General 07/28/19 01/28/23 documented as of this encounter
--- OUTSIDE RECORDS SUMMARY | 2024-06-16 00:25 | XMS_ITS | Encounter Summary ---
Author Organization [facility] Address [address] [place] [address] Care Team Providers Care Soldering Machine Feeder Name Role Phone Ayden Angulo MD Primary Care Provider Unava ilable Reason for Visit * Reason Onset Date Comments Medications Refill 03/25/2022 Encounter Details Date Type Department Care Team (Late st Contact Info) Description 03/25/2022 Refill [facility] Family Medicine [facility] [address] [place] [address] Ayden Angulo MD Medications Refill Social History [...] Anxiety. Daily Max 2 mg 16 Tablet 03/25/2022 04/28/2022 documented in this encounter Miscellaneous Notes * Telephone Encounter - Leandra Pike MA - 03/25/2022 1522 EDT Per [facility]MS, last filled on 02/24/22 for 8-day supply (could be filled on 03/04/22) TE to [facility] - med pended for review; currently for a 30-day supply, but pt generally receives in 8-day increments. * Telephone Encounter - Priscilla Milton RN - 03/25/2022 1416 EDT Refill request for Ativan Last ordered 02/24/2022 Dosage/directions verified JAMEL 03/11/2022 NOV 04/01/2022 Please check VPMS documented in this encounter Plan of Treatment Not on file documented as of this encounter Visit Diagnoses Not on filedocumented in this encounter Discontinued Medications Medication Sig Discontinue Reason Start Date End Da te LORazepam (ATIVAN) 0.5 mg tablet Take 2 Tablets by mouth 2 times daily as needed for up to 30 days for Anxiety. Daily Max 2 mg Reorder 02/24/2022 03/25/2022 documented as of this encounter Care Teams Soldering Machine Feeder Relationship Specialty Start Date End Date Ayden Angulo MD PCP - General 07/28/19 01/28/23 documented as of this encounter
--- OUTSIDE RECORDS SUMMARY | 2024-06-16 00:25 | XMS_ITS | Encounter Summary ---
Author Organization [facility] Address [address] [place] [address] Care Team Providers Care Pharmaceutical Process Engineer Name Role Phone Ayden Angulo MD Primary Care Provider Unava ilable Reason for Visit * Reason Onset Date Comments Medications Refill 08/21/2021 Encounter Details Date Type Department Care Team (Late st Contact Info) Description 08/21/2021 Refill [facility] Family Medicine [facility] [address] [place] [address] Mitali Sena RN Medications Refill Social History Tobacco Use [...] Pain. Daily Max: 2 Tablets 56 Tablet 08/24/2021 09/22/2021 documented in this encounter Miscellaneous Notes * Telephone Encounter - Deloris Rod - 08/25/2021 0839 EST Pt called to check status of refill, appt scheduled. * Telephone Encounter - Daylin Guy RN - 08/25/2021 0744 EST Front staff please schedule * Telephone Encounter - Ayden Angulo MD - 08/24/2021 1510 EST Call Allie. Refilled pain meds. Check records. May need an in person visit if no cpm in last year * Telephone Encounter - Deanna Bennett RN - 08/24/2021 1113 EST Last visit in July - no f/u currently scheduled Due for new rx - pended as previously prescribed * Telephone Encounter - Mitali Sena RN - 08/21/2021 1443 EST RX line Hydrocodone [facility] documented in this encounter Plan of Treatment Not on file documented as of this encounter Visit Diagnoses Not on filedocumented in this encounter Discontinued Medications Medication Sig Discontinue Reason Start Date End Da te HYDROcodone-acetaminophe n (NORCO) 10-325 mg tablet Take 1 Tablet by mouth every 6 hours as needed for up to 28 days for Pain. Daily Max: 2 Tablets Reorder 07/26/2021 08/21/2021 documented as of this encounter Care Teams Pharmaceutical Process Engineer Relationship Specialty Start Date End Date Ayden Angulo MD PCP - General 07/28/19 01/28/23 documented as of this encounter
--- OUTSIDE RECORDS SUMMARY | 2024-06-16 00:25 | XMS_ITS | Encounter Summary ---
Author Organization [facility] Address [address] [place] [address] Care Team Providers Care Quality Internship Name Role Phone Ayden Angulo MD Primary Care Provider Unava ilable Reason for Visit * Reason Onset Date Comments Medication Management 06/23/2021 for pulled muscle Encounter Details Date Type Department Care Team (Late st Contact Info) Description 06/23/[address] [facility] Family Medicine [place] [address] , [address] [place] [address] Ayden Angulo MD Medication Management (for pulled muscle) Social History Tobacco Use Types Packs/Day Years [...] Telephone Encounter - Mitali Sena RN - 06/24/2021 1626 EDT Pt notified per TC note * Telephone Encounter - Ayden Angulo MD - 06/24/2021 1618 EDT Tylenol or ibuprofen. Heat to the area also works. * Telephone Encounter - Mitali Sena RN - 06/24/2021 1544 EDT To TC * Telephone Encounter - Lou Cheng - 06/23/2021 1049 EDT Pt believes she pulled a muscle in her left arm, she is looking so see what OTC medications she cantake safety with all the medications she is currently on. documented in this encounter Plan of Treatment Not on file documented as of this encounter Visit Diagnoses Not on filedocumented in this encounter Care Teams Quality Internship Relationship Specialty Start Date End Date Ayden Angulo MD PCP - General 07/28/19 01/28/23 documented as of this encounter
--- OUTSIDE RECORDS SUMMARY | 2024-06-16 00:25 | XMS_ITS | Encounter Summary ---
Author Organization [facility] Address [address] [place] [address] Care Team Providers Care Edging Catcher Name Role Phone Ayden Angulo MD Primary Care Provider Unava ilable Reason for Visit * Reason Onset Date Comments Ankle Pain 02/09/2022 Knee Pain 02/09/2022 Hip Pain 02/09/2022 Appointment Related 02/09/2022 Encounter Details Date Type Department Care Team (Late st Contact Info) Description 02/09/2022 Telephone [facility] Medicine [facility] [address] , [address] [place], [place] [address] Ayden Angulo MD Ankle Pain; Knee Pain; Hip Pain; Appointment Related Social History Tobacco Use [...] Telephone Encounter - Debbie Linda LPN - 02/13/2022 1100 EDT This advertising copywriter called and spoke with pt, verified that she feels there is significant improvement, reviewed s/sx infection to monitor for/report. Reviewed options for treatment if needed over the weekend--mergers and acquisitions attorney provider, [facility], and reviewed ER precautions. Pt verbalizes understanding, denies any concerns at this time. TE to TC for note upon return to office, pt feels that leg is improving and does not need to be seen at this time. * Telephone Encounter - Preeti Roberto - 02/13/2022 0831 EDT I called patient to confirm Tuesdays apt. She cancelled apt, reports her leg is doing much better. Infection is clearing and she is keeping it clean. -KEYA * Telephone Encounter - Preeti Roberto - 02/09/2022 1532 EDT Patient needs more notice to set up a ride to come in for OV. She took visit next wk on 02/17 at 11:30 am. Patient aware if pain increases before we see her to utilize [facility]/ED. -KEYA * Telephone Encounter - Mitali Sena, BARNEY - 02/09/2022 1527 EDT To [place] to use a same day spot, TC has some for tomorrow, 02/10 * Telephone Encounter - Preeti Roberto - 02/09/2022 1056 EDT Patient reports she tripped over the dog injuring her R ankle, knee & hip. She requests a videovisit for eval of this. Would TC want to see her in office for this? Advise. documented in this encounter Plan of Treatment Not on file documented as of this encounter Visit Diagnoses Not on filedocumented in this encounter Care Teams Edging Catcher Relationship Specialty Start Date End Date Ayden Angulo MD PCP - General 07/28/19 01/28/23 documented as of this encounter
--- OUTSIDE RECORDS SUMMARY | 2024-06-16 00:25 | XMS_ITS | Encounter Summary ---
Author Organization [facility] Address [address] [place] [address] Care Team Providers Care Residential Property Tax Appraiser Name Role Phone Ayden Angulo MD Primary Care Provider Unava ilable Reason for Visit * Reason Comments Anxiety Depression Encounter Details Date Type Department Care Team (Late st Contact Info) Description 06/12/2021 13:00 EDT Telemedicine [facility] Medicine [facility] [address] [place] [address] Ayden Angulo MD Depression with anxiety (Primary Dx); Tobacco dependence syndrome; Chronic superficial gastritis without bleeding Social History Tobacco Use Types Packs/Day Years [...] Dispensed Refills Start Date End Da te HYDROcodone-acetaminoph en (NORCO) 10-325 mg tablet Take 1 Tablet by mouth every 6 hours as needed for up to 28 days for Pain. Daily Max: 2 Tablets 56 Tablet 06/28/2021 07/17/2021 LORazepam (ATIVAN) 0.5 mg tablet Take 2 Tablets by mouth 2 times daily as needed for up to 30 days for Anxiety. Daily Max: 2 mg 20 Tablet 5 06/22/2021 07/22/2021 nicotine polacrilex (COMMIT) 4 mg lozenge Let one lozenge dissolve in your mouth every hour as needed. Do not exceed 20 lozenges per day. 144 Lozenge 2 06/12/2021 01/20/2022 documented in this encounter Progress Notes * Ayden Angulo MD - 06/12/2021 1300 EDT [facility] [place] Today's visit was provided through [...] auxiliary staff: yes. Subjective: Chief Complaint(s): Anxiety and Depression HPI: 1) had increased anxiety to the point of qid use of lorazepam as they had 8 unruly relatives in their house for a month from [place]. They did have to kick them out and she says since then shehas only had to take two lorazepam total, has many left over. She did not go through any withdrawalprocess. Still [facility]. Still somewhat agoraphobic but working on it. 2) not on chantix. Has nicotine lozenges. Smoking 1.5packs a day, down from 2. 3) a few days of vomitting when she eats now. Is still on one omeprazole a day. I have reviewed patient's tobacco history: reports that she has been smoking cigarettes. She has been smoking about 0.75 packs per day. She has never used smokeless tobacco. I have reviewed current problem list and current medications. ROS: ROS See above Objective: Examination: Home Vitals: There were no vitals taken for this visit. Pertinent exam findings: appears well, no JVD and mood and affect appropriate Data reviewed with patient: Reviewed and/or ordered active problem list, medication list, notes from last encounter tests Assessment & Plan: Allie was seen today for anxiety and depression. Diagnoses and all orders for this visit: Depression with anxiety Comments: stable at present. will keep household sijmple for he winter at least Tobacco dependence syndrome Comments: lozenges, but in setting of cessation, not cut back Chronic superficial gastritis without bleeding Comments: will take omeprazole on bid basis , watch diet. Other orders - nicotine polacrilex (COMMIT) 4 mg lozenge; Let one lozenge dissolve in your mouth every hour as needed. Do not exceed 20 lozenges per day. - LORazepam (ATIVAN) 0.5 mg tablet; Take 2 Tablets by mouth 2 times daily as needed for up to 30 days for Anxiety. Daily Max: 2 mg A total of 25 minutes was spent on this encounter on the day of this encounter. 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 01/24/2021 06/12/2021 citalopram (CELEXA) 20 mg tablet TAKE ONE TABLET BY MOUTH ONE TIME DAILY 04/30/2021 06/12/2021 varenicline (CHANTIX STARTING MONTH BOX) 0.5 mg (11)- 1 mg (42) tablet Take one 0.5mg tablet by mouth once daily x 3 days- then take one 0.5mg tablet twice daily x 4 days- then take one 1mg tablet twice daily 03/13/2021 06/12/2021 lamoTRIgine (LAMICTAL) 25 mg tablet TAKE ONE TABLET BY MOUTH TWICE DAILY 02/07/2021 06/12/2021 LORazepam (ATIVAN) 0.5 mg tablet Take 2 Tablets by mouth 2 times daily as needed for up to 30 days for Anxiety. Daily Max: 2 mg Reorder 05/23/2021 06/12/2021 HYDROcodone-acetaminophe n (NORCO) 10-325 mg tablet Take 1 Tab by mouth every 6 hours as needed for up to 28 days for Pain. Daily Max: 2 Tabs 03/09/2021 06/12/2021 HYDROcodone-acetaminophe n (NORCO) 10-325 mg tablet Take 1 Tab by mouth every 6 hours as needed for up to 28 days for Pain. Daily Max: 2 Tabs 02/09/2021 06/12/2021 HYDROcodone-acetaminophe n (NORCO) 10-325 mg tablet Take 1 Tablet by mouth every 6 hours as needed for up to 28 days for Pain. Daily Max: 2 Tablets Reorder 05/31/2021 06/12/2021 documented as of this encounter Care Teams Residential Property Tax Appraiser Relationship Specialty Start Date End Date Ayden Angulo MD PCP - General 07/28/19 01/28/23 documented as of this encounter
--- OUTSIDE RECORDS SUMMARY | 2024-06-16 00:26 | XMS_ITS | Encounter Summary ---
Author Organization [facility] Address [address] [place] [address] Care Team Providers Care Embroidery Assistant Name Role Phone Ayden Angulo MD Primary Care Provider Unava ilable Reason for Visit * Reason Onset Date Comments Medication Management 08/22/2020 TRIAGE - R X pt is out Encounter Details Date Type Department Care Team (Late st Contact Info) Description 08/22/2020 Telephone [facility] Medicine [facility] [address], [address] [place] [address] Ayden Angulo MD Medication Management (TRIAGE - RX pt is out) Social History Tobacco Use Types Packs/Day Years [...] LORazepam (ATIVAN) 0.5 mg tablet Take 2 Tabs by mouth 2 times daily as needed for Anxiety. Daily Max: 2 mg 30 Tab 08/23/2020 09/26/2020 documented in this encounter Miscellaneous Notes * Telephone Encounter - Debbie Linda LPN - 08/23/2020 1342 EST [facility] CONTROLLED MEDICATION REFILL Medication: lorazepam Medication, dose, directions verified: yes Pharmacy verified: yes Last office visit: 08/09/2020 Next office visit: 08/26/2020 Prescription due to be filled: Due Last VPMS: 08/23/2020 --Per VPMS pt last filled med 02/01/2020 for 30d supply (#30 tabs) for PRN use. Last CSA: Due at next OV. Pended as previously ordered. * Telephone Encounter - Deloris Rod - 08/22/2020 1107 EST Pt needs a refill of lorazepam, she is out. Pharmacy: [place], [place] documented in this encounter Plan of Treatment Not on file documented as of this encounter Visit Diagnoses Not on filedocumented in this encounter Discontinued Medications Medication Sig Discontinue Reason Start Date End Da te LORazepam (ATIVAN) 0.5 mg tablet Take 1 mg by mouth 2 times daily as needed for Anxiety. Reorder 08/23/2020 documented as of this encounter Care Teams Embroidery Assistant Relationship Specialty Start Date End Date Ayden Angulo MD PCP - General 07/28/19 01/28/23 documented as of this encounter
--- OUTSIDE RECORDS SUMMARY | 2024-06-16 00:26 | XMS_ITS | Encounter Summary ---
Author Organization [facility] Address [address] [place] [address] Care Team Providers Care Accounts Receivable Executive Name Role Phone Ayden uBsch MD Primary Care Provider Unava ilable Encounter Details Date Type Department Care Team (Late st Contact Info) Description 01/01/2021 Orders Only [facility] Family Medicine [facility] [address] [place] [address] Lidya Morton, DO [address] [place] [address] Panic attack (Primary Dx) Social History Tobacco Use Types [...] for Anxiety. Daily Max: 2 mg 60 Tab 1 01/02/2021 03/03/2021 LORazepam (ATIVAN) 0.5 mg tablet Take 2 Tabs by mouth 2 times daily as needed for Anxiety. Daily Max: 2 mg 4 Tab 01/01/2021 01/02/2021 documented in this encounter Progress Notes * Lidya Morton DO - 01/01/20211717 EDT Contacted by patient re: lorazepam, ran out. Called in 4 tablets to prevent withdrawal, recommended follow up with PCP tomorrow for further management. documented in this encounter Miscellaneous Notes * Addendum Note - Ayden Busch MD - 01/01/20211717 EDTAddended by: AYDEN BUSCH on: 01/02/2021 12:27 Modules accepted: Orders documented in this encounter Plan of Treatment Not on file documented as of this encounter Visit Diagnoses Diagnosis Panic attack- Primary Panic disorder without agoraphobia documented in this encounter Discontinued Medications Medication Sig Discontinue Reason Start Date End Da te LORazepam (ATIVAN) 0.5 mg tablet Take 2 Tabs by mouth 2 times daily as needed for Anxiety. Daily Max: 2 mg Reorder 11/22/2020 01/01/2021 LORazepam (ATIVAN) 0.5 mg tablet Take 2 Tabs by mouth 2 times daily as needed for Anxiety. Daily Max: 2 mg Reorder 01/01/2021 01/02/2021 documented as of this encounter Historical Medications * This list may reflect changes made after this encounter. Medication Sig Dispensed Refills Start Date End Date nystatin (MYCOSTATIN) powder APPLY 2 TIMES DAILY 12/15/2020 03/28/20 22 added in this encounter Care Teams Accounts Receivable Executive Relationship Specialty Start Date End Date Ayden Busch MD PCP - General 07/28/19 01/28/23 documented as of this encounter
--- OUTSIDE RECORDS SUMMARY | 2024-06-16 00:26 | XMS_ITS | Encounter Summary ---
Author Organization [facility] Address [address] [place] [address] Care Team Providers Care Benefits Consultant Name Role Phone Ayden Angulo MD Primary Care Provider Unava ilable Reason for Visit * Reason Comments Bruise Encounter Details Date Type Department Care Team (Late st Contact Info) Description 12/10/2020 15:30 EDT Telemedicine [facility] Family Medicine [address], [address] [place] [address] Kayla Ambriz, DIRECTOR DIVERSITY [address] [facility] [address] [place] [address] Spontaneous ecchymosis (Primary Dx) Social History Tobacco Use Types [...] as of this encounter Progress Notes * Kayla Ambriz, UNIVERSAL BANKER - 12/10/2020 1530 EDT [facility] Video Visit Today's visit was provided through [...] medical or mental health care. Verbal consent obtained: yes. Subjective: Chief Complaint(s): Bruise HPI: Allie is having a televideo visit today to reduce risk of exposure during the Covid-19 pandemic. She noticed a jose roberto on her left side yesterday that has increased in size over the past day. No painor drainage or injury that she recalls. It looks like when she had lovenox injections in the hospital- deep dark purple bruise. I have reviewed patient's tobacco history: reports that she has been smoking cigarettes. She has been smoking about 0.75 packs per day. She has never used smokeless tobacco. I have reviewed current problem list and current medications. Current Outpatient Medications Medication ??? aspirin 81 mg EC tablet ??? atorvastatin (LIPITOR) 40 mg tablet ??? diclofenac (VOLTAREN) 75 mg EC tablet ??? FLUoxetine (PROZAC) 40 mg capsule ??? [START ON 12/15/2020] HYDROcodone-acetaminophen (NORCO) 10-325 mg tablet ??? lamoTRIgine (LAMICTAL) 25 mg tablet ??? LORazepam (ATIVAN) 0.5 mg tablet ??? naloxone (NARCAN) 4 mg/actuation nasal spray ??? omeprazole (PRILOSEC) 20 mg capsule No current facility-administered medications for this visit. ROS: Review of Systems Constitutional: Negative. Skin: Bruise left abdomen Objective: Examination: Home Vitals: There were no vitals taken for this visit. Pertinent exam findings: appears well, non-labored breathing, no rash on visible skin and mood and affect appropriate Data reviewed with patient: Reviewed and/or ordered active problem list, medication list, allergies, notes from last encounter, lab results tests Assessment & Plan: Allie was seen today for bruise. Diagnoses and all orders for this visit: Spontaneous ecchymosis Comments: Acute stable dark purple bruise left ant abdomen advised to get labs at [facility]- will notify if abnormal monitor- if develops more call office Orders: - COMPLETE BLOOD COUNT; Future - PROTIME; Future The following individuals and their role did participate in today's encounter visit: Provider: Kayla Ambriz APRN Patient documented in this encounter Plan of Treatment Not on file documented as of this encounter Visit Diagnoses Diagnosis Spontaneous ecchymosis- Primary Spontaneous ecchymoses documented in this encounter Discontinued Medications Medication Sig Discontinue Reason Start Date End Da te amoxicillin-clavulanate (AUGMENTIN) 875-125 mg per tablet Take 1 Tab by mouth every 12 hours. 11/19/2020 12/10/2020 aspirin chewable 81 mg tablet Take 1 Tab by mouth daily. 04/30/2020 12/10/2020 documented as of this encounter Care Teams Benefits Consultant Relationship Specialty Start Date End Date Ayden Angulo MD PCP - General 07/28/19 01/28/23 documented as of this encounter
--- OUTSIDE RECORDS SUMMARY | 2024-06-16 00:26 | XMS_ITS | Encounter Summary ---
Author Organization [facility] Address [address] [place] [address] Care Team Providers Care Manager Human Resources Name Role Phone Ayden Angulo MD Primary Care Provider Unava ilable Reason for Visit * Reason Comments Other Encounter Details Date Type Department Care Team (Late st Contact Info) Description 11/13/2020 Refill [facility] Family Medicine [facility] [address], [address] [place] [address] Ayden Angulo MD Other Social History Tobacco [...] Dispensed Refills Start Date End Da te lamoTRIgine (LAMICTAL) 25 mg tablet TAKE ONE TABLET BY MOUTH TWICE DAILY 60 Tab 2 11/13/2020 01/26/2021 documented in this encounter Miscellaneous Notes * Telephone Encounter - Daylin Guy RN - 11/13/2020 0902 EST Last refilled as tabbed on 08/26/20. Last ov 10/28/20, no follow up scheduled. Med appears to have dropped off of current med list as '.' documented in this encounter Plan of Treatment Not on file documented as of this encounter Visit Diagnoses Not on filedocumented in this encounter Discontinued Medications Medication Sig Discontinue Reason Start Date End Da te lamoTRIgine (LAMICTAL) 25 mg tablet Take 1 Tab by mouth 2 times daily for 30 days. 08/26/2020 11/13/2020 documented as of this encounter Care Teams Manager Human Resources Relationship Specialty Start Date End Date Ayden Angulo MD PCP - General 07/28/19 01/28/23 documented as of this encounter
--- OUTSIDE RECORDS SUMMARY | 2024-06-16 00:26 | XMS_ITS | Encounter Summary ---
Author Organization [facility] Address [address] [place] [address] Care Team Providers Care Alcohol Rubber Name Role Phone Ayden Angulo MD Primary Care Provider Unava ilable Reason for Visit * Reason Comments Anxiety Foot Pain Encounter Details Date Type Department Care Team (Late st Contact Info) Description 11/22/2020 14:30 EST Telemedicine [facility] Medicine [facility] [address], [facility] [address] [place] [address] Ayden Angulo MD Depression with anxiety (Primary Dx); Extensor tendonitis of foot; Dental infection Social History Tobacco Use Types Packs/Day Years [...] needed for Anxiety. Daily Max: 2 mg 90 Tab 11/22/2020 01/01/2021 documented in this encounter Progress Notes * Ayden Angulo MD - 11/22/2020 1430 EST [facility] Video Visit Today's visit was provided through [...] staff: yes. Subjective: Chief Complaint(s): Anxiety and Foot Pain HPI: 1) is a time of anniversaries of her Mom's . Taking it hard. Seeing a counselor in [facility] . She asks for small increase in her lorazepam this month 2) pain in foot. No idea how it came on. Worse after resting. Or if hit. Is on top of foot. 3) facial swelling has gone down, ear better but all pain from the TE the other day is in a lower tooth. She is hesitant To go to the dentist until fully vaccinated. I have reviewed patient's tobacco history: reports that she has been smoking cigarettes. She has been smoking about 0.75 packs per day. She has never used smokeless tobacco. I have reviewed current problem list and current medications. ROS: ROS See above Objective: Examination: Home Vitals: There were no vitals taken for this visit. Pertinent exam findings: appears well, mood and affect appropriate and she shows the location of pain which is on top of foot where it joints her ankle.. hurts to mild comperssion Data reviewed with patient: refill hx Assessment & Plan: Allie was seen today for anxiety and foot pain. Diagnoses and all orders for this visit: Depression with anxiety Extensor tendonitis of foot Comments: ice, will splint with wearing work boots or hiking boot. discussed will take time to heal, to protect it Dental infection Comments: finish abx. go to the dentist! discussed safety precautions that dentists need to follow Other orders - LORazepam (ATIVAN) 0.5 mg tablet; Take 2 Tabs by mouth 2 times daily as needed for Anxiety. DailyMax: 2 mg A total of 25 minutes was spent on this encounter on the day of this encounter. The following individuals and their role did participate in today's encounter visit: Provider: Ayden Angulo MD Patient documented in this encounter Plan of Treatment Not on file documented as of this encounter Visit Diagnoses Diagnosis Depression with anxiety- Primary Dysthymic disorder Extensor tendonitis of foot Tenosynovitis of foot and ankle Dental infection Acute apical periodontitis of pulpal origin documented in this encounter Discontinued Medications Medication Sig Discontinue Reason Start Date End Da te LORazepam (ATIVAN) 0.5 mg tablet Take 2 Tabs by mouth 2 times daily as needed for Anxiety. Daily Max: 2 mg Reorder 11/07/2020 11/22/2020 polymyxin B sulf-trimethoprim (POLYTRIM) ophthalmic solution Place 1 Drop into affected eye(s) every 3 hours. Mainly before bedtime and on waking up 08/26/2020 11/23/2020 documented as of this encounter Care Teams Alcohol Rubber Relationship Specialty Start Date End Date Ayden Angulo MD PCP - General 07/28/19 01/28/23 documented as of this encounter
--- OUTSIDE RECORDS SUMMARY | 2024-06-16 00:26 | XMS_ITS | Encounter Summary ---
Author Organization [facility] Address [address] [place] [address] Care Team Providers Care Director Of Casework Services Name Role Phone Ayden Angulo MD Primary Care Provider Unava ilable Reason for Visit * Reason Onset Date Comments Back Pain 01/17/2021 TRIAGE - back pa in Encounter Details Date Type Department Care Team (Late st Contact Info) Description 01/17/2021 Telephone [facility] Medicine [facility] [address] [place] [address] Ayden Angulo MD Back Pain (TRIAGE - back pain) Social History Tobacco Use Types Packs/Day Years [...] methocarbamoL (ROBAXIN) 750 mg tablet Take 1 Tab by mouth every 6 hours as needed for Muscle Spasms. 20 Tab 01/17/2021 02/01/2021 documented in this encounter Miscellaneous Notes * Telephone Encounter - Mitali Sena RN - 01/17/2021 1510 EDT Pt notified per TC note and verbalized understanding. * Telephone Encounter - Ayden Angulo MD - 01/17/2021 1207 EDT Tell her to use heat with heating pad for hour at a time. Can try robaxin. Is a muscle relaxant. May sedate so if so use at bedtime only * Telephone Encounter - Mitali Sena RN - 01/17/2021 1043 EDT Pt has pain between shoulder blades up to her neck. Pt reports a month ago she bent over to pick upa box and felt it pull and then kept working. Pt states when her boyfriend massaged the area it felt like a ball. Pt states tipping head forward, slouching, sitting too long, or leaning forward are all painful. Pt states it is hard to sleep. Ice, heat, hot shower, massage, icy hot not working. Talmage not effective on the pain. Pt wondering if there is something else she can take to help with the pain. * Telephone Encounter - Deloris Rod - 01/17/2021 0938 EDT Pt pulled a muscle in her back a month ago and is in a lot of pain. Pt is already scheduled for a zoom appt on 01/24 and added to cancellation/wait list but is requesting to speak to a nurse today. I mentioned that [facility] would be a good option today and she states she can't drive (due to a stroke) so she doesn't know how she would get there. documented in this encounter Plan of Treatment Not on file documented as of this encounter Visit Diagnoses Not on filedocumented in this encounter Care Teams Director Of Casework Services Relationship Specialty Start Date End Date Ayden Angulo MD PCP - General 07/28/19 01/28/23 documented as of this encounter
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
--- OUTSIDE RECORDS SUMMARY | 2024-06-16 00:26 | XMS_ITS | Encounter Summary ---
Author Organization [facility] Address [address] [place] [address] Care Team Providers Care Home Therapy Clinician Name Role Phone Ayden Angulo MD Primary Care Provider Unava ilable Reason for Visit * Reason Comments Other Encounter Details Date Type Department Care Team (Late st Contact Info) Description 04/30/2021 Refill [facility] Family Medicine [facility] [address], [address] [place] [address] Ayden Angulo MD Other Social History Tobacco [...] BY MOUTH ONE TIME DAILY 30 Tablet 5 04/30/2021 06/12/2021 documented in this encounter Miscellaneous Notes * Telephone Encounter - Sue Kerns, MELLY - 04/30/2021 1741 EDT Sent. * Telephone Encounter - Debbie Linda LPN - 04/30/2021 1604 EDT [facility] MEDICATION REFILL Medication: escitalopram Medication, dose, directions verified: yes Pharmacy verified: yes Last office visit: 02/07/2021 Next office visit: none documented in this encounter Plan of Treatment Not on file documented as of this encounter Visit Diagnoses Not on filedocumented in this encounter Discontinued Medications Medication Sig Discontinue Reason Start Date End Da te citalopram (CELEXA) 20 mg tablet Take 1 Tab by mouth daily. 02/07/2021 04/30/2021 documented as of this encounter Care Teams Home Therapy Clinician Relationship Specialty Start Date End Date Ayden Angulo MD PCP - General 07/28/19 01/28/23 documented as of this encounter
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
--- OUTSIDE RECORDS SUMMARY | 2024-06-16 00:26 | XMS_ITS | Encounter Summary ---
Author Organization [facility] Address [address] [place] [address] Care Team Providers Care Oscillograph Technician Name Role Phone Ayden Angulo MD Primary Care Provider Unava ilable Reason for Visit * Reason Onset Date Comments Medications Refill 06/07/2020 Encounter Details Date Type Department Care Team (Late st Contact Info) Description 06/07/2020 Refill [facility] Family Medicine [facility] [address] , [address] [place] [address] Ayden Angulo MD Medications Refill Social History [...] ONE CAPSULE BY MOUTH ONE TIME DAILY 30 Cap 5 06/07/2020 12/10/2020 documented in this encounter Miscellaneous Notes * Telephone Encounter - Maribel Lorenzo - 06/07/2020 1135 EDT To TC please clarify, is Pt still taking this medication? * Telephone Encounter - Lindy Champion - 06/07/2020 0943 EDT Pt had tele med apt with TC today, it looks like this was discontinued and the pt is on protonix will need to clarify. documented in this encounter Plan of Treatment Not on file documented as of this encounter Visit Diagnoses Not on filedocumented in this encounter Care Teams Oscillograph Technician Relationship Specialty Start Date End Date Ayden Angulo MD PCP - General 07/28/19 01/28/23 documented as of this encounter
--- OUTSIDE RECORDS SUMMARY | 2024-06-16 00:26 | XMS_ITS | Encounter Summary ---
Author Organization [facility] Address [address] [place] [address] Care Team Providers Care Studio Potter Name Role Phone Ayden Angulo MD Primary Care Provider Unava ilable Reason for Visit * Reason Onset Date Comments Medication Management 12/10/2020 Encounter Details Date Type Department Care Team (Late st Contact Info) Description 12/10/2020 Telephone [facility] Medicine [facility] [address] , [address] [place] [address] Ayden Angulo MD Medication Management Social History [...] Pain. Daily Max: 2 Tabs 56 Tab 12/15/2020 01/08/2021 omeprazole (PRILOSEC) 20 mg capsule TAKE ONE CAPSULE BY MOUTH ONE TIME DAILY 30 Cap 5 12/10/2020 05/23/2021 documented in this encounter Miscellaneous Notes * Telephone Encounter - Debbie Linda LPN - 12/10/2020 1202 EDT [facility] CONTROLLED MEDICATION REFILL Medication: hydrocodone Medication, dose, directions verified: yes Pharmacy verified: yes Last office visit: 11/22/2020, 12/10/2020(acute) Next office visit: none Prescription due to be filled: 12/15/2020 Last urine drug screen: Due at next OV Last VPMS: 12/10/2020 -Per VPMS pt last filled medication on 11/17/2020 for 28d supply (#56 tabs) with no refills. Last CSA: Due at next OV [facility] MEDICATION REFILL Medication: omeprazole Medication, dose, directions verified: yes Pharmacy verified: yes Last office visit: 11/22/2020, 12/10/2020 (acute) Next office visit: none Hydrocodone pended with appropriate fill date of 12/15/2020 * Telephone Encounter - Lou Cheng - 12/10/2020 0838 EDT Pt requesting refills on omeprazole and hydrocodone [facility] documented in this encounter Plan of Treatment Not on file documented as of this encounter Visit Diagnoses Not on filedocumented in this encounter Discontinued Medications Medication Sig Discontinue Reason Start Date End Da te omeprazole (PRILOSEC) 20 mg capsule TAKE ONE CAPSULE BY MOUTH ONE TIME DAILY Reorder 06/07/2020 12/10/2020 HYDROcodone-acetaminophe n (NORCO) 10-325 mg tablet Take 1 Tab by mouth every 6 hours as needed for up to 28 days for Pain. Daily Max: 2 Tabs Reorder 11/17/2020 12/10/2020 documented as of this encounter Care Teams Studio Potter Relationship Specialty Start Date End Date Ayden Angulo MD PCP - General 07/28/19 01/28/23 documented as of this encounter
--- OUTSIDE RECORDS SUMMARY | 2024-06-16 00:26 | XMS_ITS | Encounter Summary ---
Author Organization [facility] Address [address] [place] [address] Care Team Providers Care Panel Wirer Name Role Phone Ayden Angulo MD Primary Care Provider Unava ilable Reason for Visit * Reason Onset Date Comments Follow-up 08/28/2020 Return in about 13 months (around 09/16/2021) for mood disorder. Encounter Details Date Type Department Care Team (Late st Contact Info) Description 08/28/2020 Telephone [facility] Family Medicine [facility] [address] [place] [address] Ayden Angulo MD Follow-up (Return in about 13 months (around 09/16/2021) for mood disorder.) Social History Tobacco Use Types Packs/Day Years [...] Telephone Encounter - Mitali Sena RN - 08/30/2020 9110 EST Pt notified per TC note * Telephone Encounter - Ayden Angulo MD - 08/30/2020 1714 EST Try just one a day for a week to see if she can acclimate * Telephone Encounter - Mitali Sena RN - 08/30/2020 1654 EST Pt states her lamictal makes her very sleepy making it hard to do her daily activities. Slept last night 8 pm until midday. Pt wants to know if this is normal. * Telephone Encounter - Sue Robbins - 08/30/2020 1326 EST Medication f/u scheduled for 09/09/2020 @ 11:30. While I spoke with Allie, she reported that when taking her new medication, she experiences severe fatigue. She is unsure if this is normal and was hoping a nurse could call her back to discuss. * Telephone Encounter - Ayden Angulo MD - 08/28/2020 1759 EST Patient is correct. Set her up in two weeks * Telephone Encounter - Janie Melo RN - 08/28/2020 0846 EST To TC * Telephone Encounter - Preeti Roberto - 08/28/2020 0831 EST Patient's disposition note states: Return in about 13 months (around 09/16/2021) for mood disorder. I called patient to schedule this follow up, she reports she just started a new medication and TC told her to come back in 2 week's? Advise on follow up. documented in this encounter Plan of Treatment Not on file documented as of this encounter Visit Diagnoses Not on filedocumented in this encounter Care Teams Panel Wirer Relationship Specialty Start Date End Date Ayden Angulo MD PCP - General 07/28/19 01/28/23 documented as of this encounter
--- OUTSIDE RECORDS SUMMARY | 2024-06-16 00:26 | XMS_ITS | Encounter Summary ---
Author Organization [facility] Address [address] [place] [address] Care Team Providers Care Route Relief Driver Name Role Phone Ayden Angulo MD Primary Care Provider Unava ilable Reason for Visit * Reason Onset Date Comments Pharyngitis 05/13/2020 Encounter Details Date Type Department Care Team (Late st Contact Info) Description 05/13/2020 Telephone [facility] Family [facility] [address] [place] [address] Janie Melo RN Pharyngitis Social History Tobacco Use Types Packs/Day Years [...] encounter Miscellaneous Notes * Telephone Encounter - Aramis Pugh - 05/13/2020 1543 EDT Patient is scheduled for 05-14 at 2:00. She is aware of date and time. * Telephone Encounter - Janie Melo RN - 05/13/2020 1533 EDT Call from patient, family as had sore throat, everyone is better except for her, says white spots on her throat, right side of throat hurts a lot, feels feverish, is coughing, some discolored putum ,no sob, will refer to [facility], son had negative covid test documented in this encounter Plan of Treatment Not on file documented as of this encounter Visit Diagnoses Not on filedocumented in this encounter Care Teams Route Relief Driver Relationship Specialty Start Date End Date Ayden Angulo MD PCP - General 07/28/19 01/28/23 documented as of this encounter
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
--- OUTSIDE RECORDS SUMMARY | 2024-06-16 00:26 | XMS_ITS | Encounter Summary ---
Author Organization [facility] Address [address] [place] [address] Care Team Providers Care Engine Oiler Name Role Phone Ayden Angulo MD Primary Care Provider Unava ilable Reason for Visit * Reason Onset Date Comments Medication Management 03/03/2021 Encounter Details Date Type Department Care Team (Late st Contact Info) Description 03/03/2021 Telephone [facility] Family Medicine [facility] [address] , [facility] [address] [place] [address] Ayden Angulo MD Medication Management Social History [...] Anxiety. Daily Max: 2 mg 60 Tablet 1 03/03/2021 04/24/2021 documented in this encounter Miscellaneous Notes * Telephone Encounter - Ayden Angulo MD - 03/03/2021 0925 EDT done * Telephone Encounter - Daylin Guy RN - 03/03/2021 0902 EDT Last ov 02/07/21, no follow up scheduled. Last refilled as tabbed 01/02/21- but notes indicate it wasa temporary increase in amount. See note as tabbed, please advise on refill/adjust sig/note to pharmacy if needed. * Telephone Encounter - Deloris Rod - 03/03/2021 0844 EDT Pt is out of lorazepam. Pharmacy: [place], [place] documented in this encounter Plan of Treatment Not on file documented as of this encounter Visit Diagnoses Not on filedocumented in this encounter Discontinued Medications Medication Sig Discontinue Reason Start Date End Da te LORazepam (ATIVAN) 0.5 mg tablet Take 2 Tabs by mouth 2 times daily as needed for up to 30 days for Anxiety. Daily Max: 2 mg Reorder 01/02/2021 03/03/2021 documented as of this encounter Care Teams Engine Oiler Relationship Specialty Start Date End Date Ayden Angulo MD PCP - General 07/28/19 01/28/23 documented as of this encounter
--- OUTSIDE RECORDS SUMMARY | 2024-06-16 00:26 | XMS_ITS | Encounter Summary ---
Author Organization [facility] Address [address] [place] [address] Care Team Providers Care Porter Sample Case Name Role Phone Ayden Angulo MD Primary Care Provider Unava ilable Reason for Visit * Reason Onset Date Comments Panic Attack 06/12/2020 Encounter Details Date Type Department Care Team (Late st Contact Info) Description 06/12/2020 Telephone [facility] Family Medicine [facility] [address] [place] [address] Ayden Angulo MD Panic Attack Social History Tobacco Use Types Packs/Day Years [...] Telephone Encounter - Mitali Sena RN - 06/18/2020 7271 EDT Spoke to Tracey Banks, she states pt last picked up a 15 day supply of lorazepam 1 mg on 05/09 and has 1 refill left for 30 tabs, 30 day supply. Per conversation with TC, it is okay for pt to order picker this refill of lorazepam . Pt also needs an OV in 2 weeks. Pt notified that she has a refill of lorazepam at the pharmacy. Pt prefers Zoom and is scheduled for 07/02. * Telephone Encounter - Ayden Angulo MD - 06/18/2020 1225 EDT This is odd. Lorazepam is on her med list. Call her pharmacy and check on refill hx * Telephone Encounter - Janie Melo RN - 06/18/2020 1020 EDT Called pt again, she says she s having panic attacks all the time, 3-4 times a day, she researched ways to calm herself down and distract herself but it s not working, she can t leave the house , shewouldn t be able to come in for a visit but could do a zoom * Telephone Encounter - Janie Melo RN - 06/12/2020 0947 EDT lm * Telephone Encounter - Deloris Rod - 06/12/2020 0843 EDT Pt states that she was taken off lorazepam and it isn't working. She is having panic attacks. documented in this encounter Plan of Treatment Not on file documented as of this encounter Visit Diagnoses Not on filedocumented in this encounter Care Teams Porter Sample Case Relationship Specialty Start Date End Date Ayden Angulo MD PCP - General 07/28/19 01/28/23 documented as of this encounter
--- OUTSIDE RECORDS SUMMARY | 2024-06-16 00:26 | XMS_ITS | Encounter Summary ---
Author Organization [facility] Address [address] [place] [address] Care Team Providers Care Foam Rubber Curer Name Role Phone Ayden Angulo MD Primary Care Provider Unava ilable Reason for Visit * Reason Onset Date Comments Wound Infection 11/07/2020 Old tick bite. Encounter Details Date Type Department Care Team (Late st Contact Info) Description 11/07/2020 Telephone [facility] Family Medicine - [facility] [address] , [address] [place] [address] Ayden Angulo MD Wound Infection (Old tick bite.) Social History Tobacco Use Types Packs/Day Years [...] Telephone Encounter - Mitali Sena RN - 11/07/2020 1154 EST Pt was seen at ER in [facility] awhile back for a tick imbedded in her thigh. Pt states they left the tick in her leg and gave her a pill to take. Pt then stabbed at it a few times with a needle.Bite healed over and it became a dime sized black spot. Spot is now nickel to quarter sized. For last month the area has been red at and around the spot, oozing yellowish fluid, bleeding, and swollen. Pt states her pants rub it and break it open contributing to the bleeding. Pt denies fever. Due to no open appt's at the office to evaluate the spot pt was advised to go to EC. PT agreed to go today. TC-FYI * Telephone Encounter - Gage Ford - 11/07/2020 1025 EST Pt reports she had a tick bite in her leg a while ago. It was too far in so they left it in thereand gave her some medicines. Says it is painful, swollen, red, and sometimes oozes blood and/or pus. She would like some type of medication to assist with the infection. [phone] documented in this encounter Plan of Treatment Not on file documented as of this encounter Visit Diagnoses Not on filedocumented in this encounter Care Teams Foam Rubber Curer Relationship Specialty Start Date End Date Ayden Angulo MD PCP - General 07/28/19 01/28/23 documented as of this encounter
--- OUTSIDE RECORDS SUMMARY | 2024-06-16 00:26 | XMS_ITS | Encounter Summary ---
Author Organization [facility] Address [address] [place] [address] Care Team Providers Care Sourcing Coordinator Name Role Phone Ayden Angulo MD Primary Care Provider Unava ilable Reason for Visit * Reason Onset Date Comments Otalgia 11/19/2020 Encounter Details Date Type Department Care Team (Late st Contact Info) Description 11/19/2020 Telephone [facility] Family Medicine [facility] [address] , [address] [place] [address] Ayden Angulo MD Otalgia Social History Tobacco Use Types Packs/Day Years [...] Dispensed Refills Start Date End Da te amoxicillin-clavulanate (AUGMENTIN) 875-125 mg per tablet Take 1 Tab by mouth every 12 hours. 14 Tab 11/19/2020 12/10/2020 documented in this encounter Miscellaneous Notes * Telephone Encounter - Ayden Angulo MD - 11/19/2020 0803 EST Ear pain tostart, now swollen in front of ear, red and some dental pain. No ear drainage. Hurt to lay on this side last night. Agreed will treat but with understanding she will hold heat to area, call if at all worse or go to the ER documented in this encounter Plan of Treatment Not on file documented as of this encounter Visit Diagnoses Not on filedocumented in this encounter Care Teams Sourcing Coordinator Relationship Specialty Start Date End Date Ayden Angulo MD PCP - General 07/28/19 01/28/23 documented as of this encounter
--- OUTSIDE RECORDS SUMMARY | 2024-06-16 00:26 | XMS_ITS | Encounter Summary ---
Author Organization [facility] Address [address] [place] [address] Care Team Providers Care Microsoft Windows Engineer Name Role Phone Ayden Angulo MD Primary Care Provider Unava ilable Reason for Visit * Reason Comments Anxiety Palpitations Encounter Details Date Type Department Care Team (Late st Contact Info) Description 12/19/2020 11:00 EDT Telemedicine [facility] [address] , [address] [place] [address] Ayden Angulo MD Panic attack (Primary Dx) Social History Tobacco [...] Progress Notes * Ayden Angulo MD - 12/19/2020 1100 EDT [facility] Video Visit Today's [...] staff: yes. Subjective: Chief Complaint(s): Anxiety and Palpitations HPI: Allie reports that she was dieting and taking lots of diet pills and drinking lots of energy drinks like a monster. She had 3 in 1 day and went out to shovel some snow and felt her heart beating in her chest. This precipitated a prolonged period of anxiety which she now looks back and realizes kept her heart beating fast. She panicked at one moment got in the car and drove to the emergencyroom in [place]. When she got there she was fine but became anxious again when the doctor walkedin who had seen her in the past and this to the fact that she was having a stroke. This caused her heart rate to go back up into the 120s again. Labs were drawn, they were not able to really do an EKG, and she was sent home. It looks by the records that contact this office she has had a Zio patch ordered, still pending. At this point she feels fine. She is not drinking any caffeine. She is back on her diet and taking walks twice a day. She bought a pulse oximeter and can assess her own heart rate this way and says that with walking her heart rate goes up to about 110 120 but goes back down to a normal range when she rests. She is not having any chest pain chest pressure or syncopal feelings. She never had loss of strength in her arms or legs. She did go through lots of lorazepam during this spell but think she will get by because the exercise she is getting right now seems to calm her I have reviewed patient's tobacco history: reports [...] Allie was seen today for anxiety and palpitations. Diagnoses and all orders for this visit: Panic attack Comments: Discussed with Allie today the connection between her symptoms and the excessive caffeine and anxiety. To cut out caffeine, and discussed ways of handling anxiety. She will continue her efforts at weight loss and exercise. I went over what a normal heart rate should be with aches exercise and she is not to exceed 140 bpm at this point given how out of shape she is. I asked her not to let anxiety get the of her and that she should call sooner rather than later when she is finding herself in such a state. Rare lorazepam may prove helpful, though went reassured she says she will needs to use less A total of 30 minutes was spent on this encounter on the day of this encounter. The following individuals and their role did participate in today's encounter visit: Provider: Ayden Angulo MD Patient documented in this encounter Plan of Treatment Not on file documented as of this encounter Visit Diagnoses Diagnosis Panic attack- Primary Panic disorder without agoraphobia documented in this encounter Care Teams Microsoft Windows Engineer Relationship Specialty Start Date End Date Ayden Angulo MD PCP - General 07/28/19 01/28/23 documented as of this encounter
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
--- OUTSIDE RECORDS SUMMARY | 2024-06-16 00:26 | XMS_ITS | Encounter Summary ---
Author Organization [facility] Address [address] [place] [address] Care Team Providers Care Loom Winder Tender Name Role Phone Ayden Angulo MD Primary Care Provider Unava ilable Reason for Visit * Reason Comments Other Encounter Details Date Type Department Care Team (Late st Contact Info) Description 04/21/2021 Refill [facility] Family Medicine [facility] [address], [address] [place] [address] Ayden Angulo MD Other Social History Tobacco [...] MOUTH ONE TIME DAILY 90 capsule 3 04/21/2021 10/20/2021 documented in this encounter Miscellaneous Notes * Telephone Encounter - Rosemarie Jones - 05/14/2021 1226 EDT scheduled * Telephone Encounter - Debbie Linda LPN - 05/14/2021 0851 EDT Please schedule pt for next available OV with TC for CPM visit. * Telephone Encounter - Debbie Linda LPN - 04/21/2021 [address] [facility] MEDICATION REFILL Medication: fluoxetine Medication, dose, directions verified: yes Pharmacy verified: yes Last office visit: 02/07/2021 Next office visit: none Pt due for CPM visit later this month. documented in this encounter Plan of Treatment Not on file documented as of this encounter Visit Diagnoses Not on filedocumented in this encounter Discontinued Medications Medication Sig Discontinue Reason Start Date End Da te FLUoxetine (PROZAC) 40 mg capsule TAKE ONE CAPSULE BY MOUTH ONE TIME DAILY 05/02/2020 04/21/2021 documented as of this encounter Care Teams Loom Winder Tender Relationship Specialty Start Date End Date Ayden Angulo MD PCP - General 07/28/19 01/28/23 documented as of this encounter
--- OUTSIDE RECORDS SUMMARY | 2024-06-16 00:26 | XMS_ITS | Encounter Summary ---
Author Organization [facility] Address [address] [place] [address] Care Team Providers Care Director Of Tax Services Name Role Phone Ayden Angulo MD Primary Care Provider Unava ilable Reason for Visit * Reason Onset Date Comments Medications Refill 03/06/2021 Encounter Details Date Type Department Care Team (Late st Contact Info) Description 03/06/2021 Telephone [facility] [place] [address] , [facility] [address] [place] [address] Mitali Sena, RN Medications Refill Social History Tobacco Use [...] Miscellaneous Notes * Telephone Encounter - Mitali Sena, RN - 03/06/2021 1205 EDT RX line Hydrocodone [facility] Pt notified she already has RX's dated for 03/09 and 04/06 sent in to the pharmacy. documented in this encounter Plan of Treatment Not on file documented as of this encounter Visit Diagnoses Not on filedocumented in this encounter Care Teams Director Of Tax Services Relationship Specialty Start Date End Date Ayden Angulo MD PCP - General 07/28/19 01/28/23 documented as of this encounter
--- OUTSIDE RECORDS SUMMARY | 2024-06-16 00:26 | XMS_ITS | Encounter Summary ---
Author Organization [facility] Address [address] [place] [address] Care Team Providers Care Supportive Employment Case Manager Name Role Phone Ayden Angulo MD Primary Care Provider Unava ilable Reason for Visit * Reason Onset Date Comments Follow-up 12/13/2020 Patient calling for [facility] ED visit f/u apt with TC Heart Problem 12/13/2020 Patient seen @ [facility] for heart related issue's Orders (Non Pre-visit) 12/13/2020 [facility] ospital recommends Holter Monitor order per patient Panic Attack 12/13/2020 Encounter Details Date Type Department Care Team (Late st Contact Info) Description 12/13/2020 Telephone [facility] [address] [place] [address] Ayden Angulo MD Follow-up (Patient calling for [facility] ED visit f/u apt with TC); Heart Problem (Patient seen @ [facility] for heart related issue's); Orders (Non Pre-visit) ([facility] recommends Holter Monitor order per patient); Panic Attack Social History Tobacco Use Types [...] Telephone Encounter - Simran Wheeler RN - 12/13/2020 1530 EDT I left a message for Allie stating we ordered the zio patch test and she will be contacted to arrange the appointment. TE to TC for update on the status of this pt. * Telephone Encounter - Wilver Garcias MD - 12/13/2020 1422 EDT ziopatch ordered. * Telephone Encounter - Simran Wheeler RN - 12/13/2020 1331 EDT I spoke with Allie again and she admits that she is very anxious about her palpitations. I had her check her HR and currently it is 108, no chest pain or SOB, though the racing is persistant. She keeps mentioning that she is concerned that they may have missed something at [facility]. I reminded her that at any time she felt she needed to be re-evaluated she should go to the ER. She expressed that she is aware of that and that most likely this is all anxiety provoked. 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 I told her that we would order the appropriate test and that they would be calling her to schedule it. She then asked if that would be happening today or over the weekend. I advised her that this would most likely be next week, again mentioning to utilize the ER if needed. TE back to Dr Garcias. * Telephone Encounter - Wilver Garcias MD - 12/13/2020 1123 EDT She may go up to ativan; 1 mg, three times daily as needed for a short interval (a week or so). Are these palpitations occurring often? Daily? If so, holter is a good option. If symptoms rare then ziopatch which gives a longer period of monitoring preferable. * Telephone Encounter - Simran Wheeler RN - 12/13/2020 1105 EDT The ER report has been reviewed. I called the pt back and she mentioned that prior to going to the ER for the sensation of heart flutter she had ingested 3 energy drinks and then went out to shovel. This is when she became symptomatic and went to the ER. She admits that she is very anxious this morning about her diagnosis and states that the ER doctor is the same doctor that she saw when she had her CVA and he sent her home instead of admitting her. She knows this is driving some of her anxiety and is looking for reassurance about the plan for an event monitor and upcoming visit with TC. She would also like to know if she could increase her lorazepam dose for now. TE to covering provider. ER report to Dr Garcias. * Telephone Encounter - Deloris Rod - 12/13/2020 1022 EDT Pt called back wondering if she could take more lorazepam. Pt states that she is really panicking. Attempted to reach nurse at time of call. [facility] records were given to nursing this AM. * Telephone Encounter - Ksenia Vazquez RN - 12/13/2020 0916 EDT FYI; video appt was made for 12/19, awaiting records from [facility] * Telephone Encounter - Preeti Roberto - 12/13/2020 0856 EDT Patient reports she was seen at [place], [place] for heart issue. She said they told her she has Mobitz type 1 heart block. She said they recommend she have a Holter Monitor ordered. She wants TC to know she is scheduled to receive her first covid vaccine on 12/21. I booked a zoom visit to f/u ED visit. [facility] is faxing a copy of her notes now. documented in this encounter Plan of Treatment Not on file documented as of this encounter Visit Diagnoses Diagnosis Palpitations- Primary Mobitz (type) I (Wenckebach's) atrioventricular block Other second degree atrioventricular block documented in this encounter Care Teams Supportive Employment Case Manager Relationship Specialty Start Date End Date Ayden Angulo MD PCP - General 07/28/19 01/28/23 documented as of this encounter
--- OUTSIDE RECORDS SUMMARY | 2024-06-16 00:26 | XMS_ITS | Encounter Summary ---
Author Organization [facility] Address [address] [place] [address] Care Team Providers Care Hot Shot Name Role Phone Ayden Angulo MD Primary Care Provider Unava ilable Reason for Visit * Reason Onset Date Comments Medication Management 05/20/2020 medication refill Encounter Details Date Type Department Care Team (Late st Contact Info) Description 05/20/2020 Telephone [facility] Family Medicine [facility] [address] [place] [address] Ayden Angulo MD Medication Management (medication refill) Social History Tobacco Use Types Packs/Day Years [...] Start Date End Da te HYDROcodone-acetaminophen (NORCO) 5-325 mg tablet Take 1 Tab by mouth every 6 hours as needed for up to 28 days for Pain. Fill date 05/27/20 Daily Max: 4 Tabs 28 Tab 05/27/2020 06/07/2020 documented in this encounter Miscellaneous Notes * Telephone Encounter - Mitali Sena RN - 05/23/2020 0829 EDT Spoke to Tracey Multani, last coal picker was 04/29/20. [facility] CONTROLLED MEDICATION REFILL Medication: hydrocodone-acetaminophen Medication, dose, directions verified: 5-325mg, Take 1 Tab by mouth every 6 hours as needed Pharmacy verified: [facility] Last office visit: 05/06/20 Next office visit: 06/10/20 Prescription due to be filled: 05/27/20 Last urine drug screen: none Last VPMS: 05/23/20 Last CSA: none TC-med pended * Telephone Encounter - Starr Bro - 05/22/2020 1527 EDT Patient called back checking on the status. * Telephone Encounter - Starr Bro - 05/20/2020 0840 EDT Patient would like RX Hydrocodone called into the pharmacy. She is out and aware of refill policy. documented in this encounter Plan of Treatment Not on file documented as of this encounter Visit Diagnoses Not on filedocumented in this encounter Discontinued Medications Medication Sig Discontinue Reason Start Date End Da te HYDROcodone-acetaminophe n (NORCO) 5-325 mg tablet Take 1 Tab by mouth every 6 hours as needed for up to 28 days for Pain. Daily Max: 4 Tabs Reorder 04/24/2020 05/23/2020 documented as of this encounter Care Teams Hot Shot Relationship Specialty Start Date End Date Ayden Angulo MD PCP - General 07/28/19 01/28/23 documented as of this encounter
--- OUTSIDE RECORDS SUMMARY | 2024-06-16 00:26 | XMS_ITS | Encounter Summary ---
Author Organization [facility] Address [address] [place] [address] Care Team Providers Care Presser Hand Name Role Phone Ayden Angulo MD Primary Care Provider Unava ilable Reason for Visit * Reason Onset Date Comments Medication Problem 11/26/2020 Encounter Details Date Type Department Care Team (Late st Contact Info) Description 11/26/2020 Telephone [facility] [place] [address] , [facility] [address] [place] [address] Mitali Sena RN Medication Problem Social History Tobacco Use Types [...] Telephone Encounter - Ayden Angulo MD - 11/26/2020 1651 EST Was not an allergic reaction. Was an adverse reaction, not unusual, would not keep me from prescribing again if needed. * Telephone Encounter - Daylin Guy RN - 11/26/2020 1613 EST Patient notified. She said she is doing better and stopped it. Do you want the amox added to allergy list? * Telephone Encounter - Ayden Angulo MD - 11/26/2020 1455 EST If face feeling better and tooth not so bad,canstop it * Telephone Encounter - Mitali Sena RN - 11/26/2020 1354 EST Pt started amoxicillin last week and has had diarrhea since Pt had really bad cramps but Pepto Bismol is helping with that. New today is vomiting. Pt is able to keep sips of water down but not food. Pt states she has a couple of days left of the med and wonders if she should keep talking it. * Telephone Encounter - Mitali Sena RN - 11/26/2020 1329 EST POD 1 nurse line voicemail message Pt called regarding side effects of med she was prescribed last week. Pt looking to discuss options. documented in this encounter Plan of Treatment Not on file documented as of this encounter Visit Diagnoses Not on filedocumented in this encounter Care Teams Presser Hand Relationship Specialty Start Date End Date Ayden Angulo MD PCP - General 07/28/19 01/28/23 documented as of this encounter
--- OUTSIDE RECORDS SUMMARY | 2024-06-16 00:26 | XMS_ITS | Encounter Summary ---
Author Organization [facility] Address [address] [place] [address] Care Team Providers Care Service Inspector Name Role Phone Ayden Angulo MD Primary Care Provider Unava ilable Reason for Visit * Reason Onset Date Comments Nasal Congestion 04/25/2021 Cough 04/25/2021 Medication Management 04/25/2021 Encounter Details Date Type Department Care Team (Late st Contact Info) Description 04/25/2021 Telephone [facility] Medicine [facility] [address] [place] [address] Ayden Angulo MD Nasal Congestion; Cough; Medication Management Social History Tobacco Use Types [...] Telephone Encounter - Simran Wheeler RN - 04/25/2021 0956 EDT I spoke to the patient and advised her to go to or another care facility for COVID screening andtreatment. I did provide her with the phone # for the health department to see if there was test site in her area. Pt advised to call back if she needed further f/u care. * Telephone Encounter - Preeti Roberto - 04/25/2021 0939 EDT Patient reports she has had a cold, the worst in her life since about 04/22. She has tried OTC Vicks Vapor Rub, she can't taste or smell anything. Reports cough & congestion, no fever. She reports her O2 has been around 92-94, low for her, what can she do to bring O2 up? She had a stroke, she can't drive to come be evaluated. Can we send something into pharmacy for her? Advise. documented in this encounter Plan of Treatment Not on file documented as of this encounter Visit Diagnoses Not on filedocumented in this encounter Care Teams Service Inspector Relationship Specialty Start Date End Date Ayden Angulo MD PCP - General 07/28/19 01/28/23 documented as of this encounter
--- OUTSIDE RECORDS SUMMARY | 2024-06-16 00:26 | XMS_ITS | Encounter Summary ---
Author Organization [facility] Address [address] [place] [address] Care Team Providers Care Chief Risk Officer Name Role Phone Ayden Angulo MD Primary Care Provider Unava ilable Reason for Visit * Reason Onset Date Comments Medications Refill 03/14/2021 Encounter Details Date Type Department Care Team (Late st Contact Info) Description 03/14/2021 Refill [facility] Family Medicine [facility] [address] [place] [address] Ayedn Angulo MD Medications Refill Social History Tobacco [...] as needed for Muscle Spasms. 20 Tablet 03/14/2021 07/17/2021 documented in this encounter Miscellaneous Notes * Telephone Encounter - Daylin Guy RN - 03/14/2021 1033 EDT Notified patient that sent in. * Telephone Encounter - Daylin Guy RN - 03/14/2021 0944 EDT Last office visit was 02/07/21, no follow up scheduled. On current med list, last refilled as tabbedon 02/01/21. To TC- are you willing to prescribe again another #20 tabs? * Telephone Encounter - Rosemarie Jones - 03/14/2021 0853 EDT Pt is requesting refill of methocarbamoL (ROBAXIN) 750 mg tablet as she did it again to her neck/back and its really bad, pt uses [facility] in [place] - please advise documented in this encounter Plan of Treatment Not on file documented as of this encounter Visit Diagnoses Not on filedocumented in this encounter Discontinued Medications Medication Sig Discontinue Reason Start Date End Da te methocarbamoL (ROBAXIN) 750 mg tablet Take 1 Tab by mouth every 6 hours as needed for Muscle Spasms. Reorder 02/01/2021 03/14/2021 documented as of this encounter Care Teams Chief Risk Officer Relationship Specialty Start Date End Date Ayden Angulo MD PCP - General 07/28/19 01/28/23 documented as of this encounter
--- OUTSIDE RECORDS SUMMARY | 2024-06-16 00:26 | XMS_ITS | Encounter Summary ---
Author Organization [facility] Address [address] [place] [address] Care Team Providers Care Press Tender Incendiary Grenade Name Role Phone Ayden Angulo MD Primary Care Provider Unava ilable Reason for Visit * Reason Onset Date Comments Medications Refill 10/16/2020 Encounter Details Date Type Department Care Team (Late st Contact Info) Description 10/16/[address] [facility] Family Medicine [facility] [address] [place] [address] Ayden Angulo MD Medications Refill Social History [...] Anxiety. Daily Max: 2 mg 30 Tab 10/17/2020 11/06/2020 HYDROcodone-acetaminophen (NORCO) 10-325 mg tablet Take 1 Tab by mouth every 6 hours as needed for up to 28 days for Pain. Daily Max: 2 Tabs 56 Tab 10/20/2020 11/13/2020 documented in this encounter Miscellaneous Notes * Telephone Encounter - Debbie Linda LPN - 10/16/2020 1315 EST [facility] CONTROLLED MEDICATION REFILL Medication: hydrocodone Medication, dose, directions verified: yes Pharmacy verified: yes Last office visit: 09/09/2020 Next office visit: pending Prescription due to be filled: 10/20/2020 Last urine drug screen: Due at next OV Last VPMS: 10/16/2020 -Per VPMS pt last filled medication on 09/22/2020 for 28d supply (#56 tabs) with no refills Last CSA: Due at next OV [facility] CONTROLLED MEDICATION REFILL Medication: Lorazepam Medication, dose, directions verified: yes Pharmacy verified: yes Last office visit: 09/09/2020 Next office visit: pending Prescription due to be filled: Due Last urine drug screen: Due at next OV Last VPMS: 10/16/2020 -Per VPMS pt last filled medication on 09/26/2020 for 8d supply (#30 tabs) with no refills Last CSA: Due at next OV Orders pended with appropriate fill dates, to provider for review/sign. * Telephone Encounter - Leandra Pike - 10/16/2020 1238 EST Patient calling the Rx line requesting refills of the following medications: Hydrocodone-acetaminophen 10-325mg tablets Lorazepam 0.5mg tablets documented in this encounter Plan of Treatment Not on file documented as of this encounter Visit Diagnoses Not on filedocumented in this encounter Discontinued Medications Medication Sig Discontinue Reason Start Date End Da te HYDROcodone-acetaminophe n (NORCO) 10-325 mg tablet Take 1 Tab by mouth every 6 hours as needed for up to 28 days for Pain. Daily Max: 2 Tabs Reorder 09/22/2020 10/16/2020 LORazepam (ATIVAN) 0.5 mg tablet Take 2 Tabs by mouth 2 times daily as needed for Anxiety. Daily Max: 2 mg Reorder 09/26/2020 10/16/2020 documented as of this encounter Care Teams Press Tender Incendiary Grenade Relationship Specialty Start Date End Date Ayden Angulo MD PCP - General 07/28/19 01/28/23 documented as of this encounter
--- OUTSIDE RECORDS SUMMARY | 2024-06-16 00:26 | XMS_ITS | Encounter Summary ---
Author Organization [facility] Address [address] [place] [address] Care Team Providers Care Unhairer Name Role Phone Ayden Angulo MD Primary Care Provider Unava ilable Encounter Details Date Type Department Care Team (Late st Contact Info) Description 04/25/2021 Orders Only [facility] Family Medicine [facility] [address] [place] [address] Debbie Linda LPN Social History Tobacco Use Types Packs/Day Years [...] as of this encounter Progress Notes * Debbie Linda LPN - 04/25/2021 1051 EDT Opened in error documented in this encounter Plan of Treatment Not on file documented as of this encounter Visit Diagnoses Not on filedocumented in this encounter Care Teams Unhairer Relationship Specialty Start Date End Date Ayden Angulo MD PCP - General 07/28/19 01/28/23 documented as of this encounter
--- OUTSIDE RECORDS SUMMARY | 2024-06-16 00:26 | XMS_ITS | Encounter Summary ---
Author Organization [facility] Address [address] [place] [address] Care Team Providers Care Options Trader Name Role Phone Ayden Angulo MD Primary Care Provider Unava ilable Reason for Visit * Reason Onset Date Comments Medication Management 01/01/2021 medication refill Encounter Details Date Type Department Care Team (Late st Contact Info) Description 01/01/2021 Telephone [facility] Family Medicine [place] [address] , [address] [place] [address] Ayden Angulo MD Medication Management (medication refill) [...] encounter Miscellaneous Notes * Telephone Encounter - Deanna Bennett RN - 01/02/2021 1230 EDT Looks like this was sent * Telephone Encounter - Starr Bro - 01/02/2021 1107 EDT Patient called back checking on the status. * Telephone Encounter - Starr Bro - 01/01/2021 0929 EDT Patient would like RX Lorazepam called into the pharmacy. She is out. documented in this encounter Plan of Treatment Not on file documented as of this encounter Visit Diagnoses Not on filedocumented in this encounter Care Teams Options Trader Relationship Specialty Start Date End Date Ayden Angulo MD PCP - General 07/28/19 01/28/23 documented as of this encounter
--- OUTSIDE RECORDS SUMMARY | 2024-06-16 00:26 | XMS_ITS | Encounter Summary ---
Author Organization [facility] Address [address] [place] [address] Care Team Providers Care Category Development Analyst Name Role Phone Ayden Angulo MD Primary Care Provider Unava ilable Reason for Visit * Reason Onset Date Comments Medications Refill 09/26/2020 Encounter Details Date Type Department Care Team (Late st Contact Info) Description 09/26/2020 Refill [facility] Family Medicine [facility] [address] [place] [address] Ayden Angulo MD Medications Refill Social History [...] Anxiety. Daily Max: 2 mg 30 Tab 09/26/2020 10/16/2020 documented in this encounter Miscellaneous Notes * Telephone Encounter - Debbie Linda LPN - 09/26/2020 1104 EST [facility] CONTROLLED MEDICATION REFILL Medication: lorazepam Medication, dose, directions verified: yes Pharmacy verified: yes Last office visit: 09/09/2020 Next office visit: none Prescription due to be filled: Due Last VPMS: 09/26/2020 --Per VPMS pt last filled med on 08/25/2020 for 8 day supply (#30 0.5mg tabs) with no refills. * Telephone Encounter - Chun Tidwell - 09/26/2020 0844 EST Refill lorazepam to [facility] [place], she is out, reviewed rx policy, she did not realize she didnot have refills documented in this encounter Plan of Treatment Not on file documented as of this encounter Visit Diagnoses Not on filedocumented in this encounter Discontinued Medications Medication Sig Discontinue Reason Start Date End Da te LORazepam (ATIVAN) 0.5 mg tablet Take 2 Tabs by mouth 2 times daily as needed for Anxiety. Daily Max: 2 mg Reorder 08/23/2020 09/26/2020 documented as of this encounter Care Teams Category Development Analyst Relationship Specialty Start Date End Date Ayden Angulo MD PCP - General 07/28/19 01/28/23 documented as of this encounter
--- OUTSIDE RECORDS SUMMARY | 2024-06-16 00:26 | XMS_ITS | Encounter Summary ---
Author Organization [facility] Address [address] [place] [address] Care Team Providers Care Compressor Station Engineer Chief Name Role Phone Ayden Angulo MD Primary Care Provider Unava ilable Reason for Visit * Reason Onset Date Comments Medications Refill 04/24/2021 Encounter Details Date Type Department Care Team (Late st Contact Info) Description 04/24/2021 Refill [facility] Family Medicine [facility] [address] [place] [address] Mitali Sena RN Medications Refill Social History [...] Anxiety. Daily Max: 2 mg 60 Tablet 04/29/2021 05/23/2021 documented in this encounter Miscellaneous Notes * Telephone Encounter - Debbie Linda LPN - 04/25/2021 1052 EDT [facility] CONTROLLED MEDICATION REFILL Medication: lorazepam Medication, dose, directions verified: yes Pharmacy verified: yes Last office visit: 02/07/2021 Next office visit: none Prescription due to be filled: 04/29/2021 Last VPMS: 04/25/2021 -Per VPMS pt last filled medication on 03/30/2021 for 30d supply (#60 tabs) with no remaining refills. Order pended with appropriate fill date. * Telephone Encounter - Mitali Sena RN - 04/24/2021 0900 EDT RX line Lorazepam [place]acey Pace [place] documented in this encounter Plan of Treatment Not on file documented as of this encounter Visit Diagnoses Not on filedocumented in this encounter Discontinued Medications Medication Sig Discontinue Reason Start Date End Da te LORazepam (ATIVAN) 0.5 mg tablet Take 2 Tablets by mouth 2 times daily as needed for up to 30 days for Anxiety. Daily Max: 2 mg Reorder 03/03/2021 04/24/2021 documented as of this encounter Care Teams Compressor Station Engineer Chief Relationship Specialty Start Date End Date Ayden Angulo MD PCP - General 07/28/19 01/28/23 documented as of this encounter
--- OUTSIDE RECORDS SUMMARY | 2024-06-16 00:26 | XMS_ITS | Encounter Summary ---
Author Organization [facility] Address [address] [place] [address] Care Team Providers Care Acute Care Nurse Practitioner Name Role Phone Ayden Angulo MD Primary Care Provider Unadanilo ilable Encounter Details Date Type Department Care Team (Late st Contact Info) Description 02/01/2021 Orders Only [facility] Family Medicine - [address] [address] Waqas Fuentes MD [address] [place] [address] [address] Social History Tobacco Use Types Packs/Day Years [...] as needed for Muscle Spasms. 20 Tab 02/01/2021 03/14/2021 documented in this encounter Progress Notes * Waqas Fuentes MD - 02/01/2021 0746 EDT Refill documented in this encounter Plan of Treatment Not on file documented as of this encounter Visit Diagnoses Not on filedocumented in this encounter Discontinued Medications Medication Sig Discontinue Reason Start Date End Da te methocarbamoL (ROBAXIN) 750 mg tablet Take 1 Tab by mouth every 6 hours as needed for Muscle Spasms. Reorder 01/17/2021 02/01/2021 documented as of this encounter Care Teams Acute Care Nurse Practitioner Relationship Specialty Start Date End Date Ayden Angulo MD PCP - General 07/28/19 01/28/23 documented as of this encounter
--- OUTSIDE RECORDS SUMMARY | 2024-06-16 00:26 | XMS_ITS | Encounter Summary ---
Author Organization [facility] Address [address] [place] [address] Care Team Providers Care Locomotive Oiler Name Role Phone Ayden Angulo MD Primary Care Provider Unava ilable Reason for Visit * Reason Onset Date Comments Client Server Programmer Message 02/01/2021 Encounter Details Date Type Department Care Team (Late st Contact Info) Description 02/01/2021 Telephone [facility] [place] - [address] [id number] Waqas Fuentes MD [address] [place] [address] [phone] Client Server Programmer Message Social History Tobacco Use Types Packs/Day [...] Telephone Encounter - Waqas Fuentes MD - 02/01/2021 0749 EDT On-call page received, communicated with Allie that she is having persistent discomfort to her neck. She recently was seen on 24 January through telemedicine due to neck, shoulder and chest pain. She states that the exacerbation occurred after she had to ride in the car for 3 hours yesterday and keepingher arm up while holding the steering wheel seems to have exacerbated the pain. She was diagnosed with torticollis and has a previous diagnosis of connective tissue disease overlap syndrome. She denies any fever or shortness of breath. Currently doing treatment with ibuprofen and is now down to her last methocarbamol. She states thatthe muscle relaxer does provide relief for about 4 hours but then it starts to return. She would like a refill of the muscle relaxer. She is scheduled to start physical therapy this Wednesday and has an appointment with her primary carephysician Dr. Angulo this coming Wednesday. We reviewed the importance of continuing to use comfort modalities such as rest, the use of heat and the importance of attending her physical therapy. Allie voiced understanding mention plan and was in agreement.. documented in this encounter Plan of Treatment Not on file documented as of this encounter Visit Diagnoses Not on filedocumented in this encounter Care Teams Locomotive Oiler Relationship Specialty Start Date End Date Ayden Angulo MD PCP - General 07/28/19 01/28/23 documented as of this encounter
--- OUTSIDE RECORDS SUMMARY | 2024-06-16 00:26 | XMS_ITS | Encounter Summary ---
Author Organization [facility] Address [address] [place] [address] Care Team Providers Care Electronic Component Processor Name Role Phone Ayden Angulo MD Primary Care Provider Unava ilable Reason for Visit * Reason Onset Date Comments Immunizations 01/20/2021 site redness Encounter Details Date Type Department Care Team (Late st Contact Info) Description 01/20/2021 Telephone [facility] [place] Medicine [place] [address], [address] [place] [address] Ayden Angulo MD Immunizations (site redness ) Social History Tobacco Use Types Packs/Day [...] Telephone Encounter - Debbie Linda LPN - 01/20/2021 4888 EDT Called and spoke with pt, she states that she had vaccine administered at [facility] in [facility]. She reports that the area was originally about the size of a quarter and red. She reports that it has started to swell and is not hot, itchy, and about twice as big. This show card writer advised that pt be seen at [facility] for eval/tx, as it may be an infection. Pt states that she cannot go today but will go tomorrow. This show card writer advised that if it continues to get larger, pain becomes unbearable, she notices foul/pus-like drainage, or develops fever that she needs medical attention urgently. Pt agreeable. She also states that there is a little bit of a burning sensation, she states that when she hadinjection that the person giving it told her they hit a nerve. Pt states that she has sensation andROM, no temperature change or discoloration anywhere on arm but vaccineadministration site. TE to TC for update. * Telephone Encounter - Ayden Angulo MD - 01/20/2021 1229 EDT Update her on reaction. Ask her to talk harpooner on the * Telephone Encounter - Debbie Linda LPN - 01/20/2021 1001 EDT Sounds like a standard vaccine reaction, will update pt on s/sx to monitor for. [facility] MEDICATION REFILL Medication: chantix Medication, dose, directions verified: yes Pharmacy verified: yes Last office visit: 12/19/2020 Next office visit: 01/24/2021 Last chantix order was from 03/07/2020-07/02/2020, need to discus resuming medication at upcoming visit? * Telephone Encounter - Lou Cheng - 01/20/2021 0913 EDT Pt received her send dose of moderna vaccine on Wednesday and reports her left arms there is a smallred [facility] there where the vaccine was given and the site is hot. Pt wondering if that is normal...pt is also requesting a refill on chantix please send [facility] documented in this encounter Plan of Treatment Not on file documented as of this encounter Visit Diagnoses Not on filedocumented in this encounter Care Teams Electronic Component Processor Relationship Specialty Start Date End Date Ayden Angulo MD PCP - General 07/28/19 01/28/23 documented as of this encounter
--- OUTSIDE RECORDS SUMMARY | 2024-06-16 00:26 | XMS_ITS | Encounter Summary ---
Author Organization [facility] Address [address] [place] [address] Care Team Providers Care Web Designer Name Role Phone Ayden Angulo MD Primary Care Provider Unava ilable Reason for Visit * Reason Comments Anxiety Encounter Details Date Type Department Care Team (Late st Contact Info) Description 07/30/2020 13:00 EST Telemedicine [facility] Family Medicine [facility] [address], [address] [place] [address] Ayden Angulo MD Anxiety (Primary Dx); Panic attacks; Agoraphobia; Yeast dermatitis; Chronic pain of right knee Social History Tobacco Use Types Packs/Day [...] Progress Notes * Ayden Angulo MD - 07/30/2020 1300 EST Due to computer system disruption, additional clinical information for this visit is Scanned Note. For patients, please refer to guidance in MyChart on how to locate information. Generally this information will appear as a scanned documents saved in My Documents activity. documented in this encounter Plan of Treatment Not on file documented as of this encounter Visit Diagnoses Diagnosis Anxiety- Primary Anxiety state, unspecified Panic attacks Panic disorder without agoraphobia Agoraphobia Agoraphobia without mention of panic attacks Yeast dermatitis Candidiasis of skin and nails Chronic pain of right knee documented in this encounter Care Teams Web Designer Relationship Specialty Start Date End Date Ayden Angulo MD PCP - General 07/28/19 01/28/23 documented as of this encounter
--- OUTSIDE RECORDS SUMMARY | 2024-06-16 00:26 | XMS_ITS | Encounter Summary ---
Author Organization [facility] Address [address] [place] [address] Care Team Providers Care Traffic And Transport Planner Name Role Phone Ayden Angulo MD Primary Care Provider Unava ilable Reason for Visit * Reason Comments Back Pain Encounter Details Date Type Department Care Team (Late st Contact Info) Description 01/24/2021 13:00 EDT Telemedicine [facility] Family Medicine [facility] [address], [address] [place] [address] Ayden Angulo MD Torticollis (Primary Dx); Connective tissue disease overlap syndrome (HCC-CMS) Social History Tobacco Use Types Packs/Day [...] tablet Take 1 Tab by mouth daily. 30 Tab 5 01/26/2021 02/07/2021 ibuprofen (MOTRIN) 800 mg tablet Take 1 Tab by mouth every 8 hours as needed for Pain. 90 Tab 2 01/24/2021 06/12/2021 documented in this encounter Progress Notes * Ayden Angulo MD - 01/24/2021 1300 EDT [facility] [place] Today's visit was provided through [...] or auxiliary staff: yes. Subjective: Chief Complaint(s): Back Pain HPI: I pulled muscles a month ago, yesica Picked up with my sister about 80 heavy bags of Trash and then it went to [facility]. Neck shoulder and chest.. I take muscle relaxer and pain pill. Working but.. four hours..then it is all back Her has hired two women to do housecleaning as she is that unable to do chores. Never has had it this bad Has gone through narcotic pain meds and methocarbamol quickly this month I have reviewed patient's tobacco history: reports that she has been smoking cigarettes. She has been smoking about 0.75 packs per day. She has never used smokeless tobacco. I have reviewed current problem list and current medications. ROS: ROS See hpi Objective: Examination: Home Vitals: There were no vitals taken for this visit. Pertinent exam findings: appears well and very stiff carriage of neck, she can move in all directions but is limited in each of these. i had her palpate her neck and she has scm tenderness mostly Data reviewed with patient: Reviewed and/or ordered active problem list, medication list tests Assessment & Plan: Allie was seen today for back pain. Diagnoses and all orders for this visit: Torticollis Comments: PT needed- will work on referral to that in [place]. heat for now. Minimalize narcotic use for sleep time, not daytime as not to hide pain. refilled ibuprof Orders: - AMB CONS/FOLLOW UP PHYSICAL THERAPY; Future Connective tissue disease overlap syndrome (HCC-CMS) Other orders - ibuprofen (MOTRIN) 800 mg tablet; Take 1 Tab by mouth every 8 hours as needed for Pain. A total of 30 minutes was spent on this encounter on the day of this encounter. The following individuals and their role did participate in today's encounter visit: Provider: Ayden Angulo MD Patient documented in this encounter Plan of Treatment Not on file documented as of this encounter Visit Diagnoses Diagnosis Torticollis- Primary Torticollis, unspecified Connective tissue disease overlap syndrome (HCC-CMS) Other specified diffuse disease of connective tissue documented in this encounter Discontinued Medications Medication Sig Discontinue Reason Start Date End Da te diclofenac (VOLTAREN) 75 mg EC tablet TAKE ONE TABLET BY MOUTH TWICE DAILY 05/02/2020 01/24/2021 lamoTRIgine (LAMICTAL) 25 mg tablet TAKE ONE TABLET BY MOUTH TWICE DAILY 11/13/2020 01/26/2021 documented as of this encounter Care Teams Traffic And Transport Planner Relationship Specialty Start Date End Date Ayden Angulo MD PCP - General 07/28/19 01/28/23 documented as of this encounter
--- OUTSIDE RECORDS SUMMARY | 2024-06-16 00:26 | XMS_ITS | Encounter Summary ---
Author Organization [facility] Address [address] [place] [address] Care Team Providers Care Felled Seam Operator Chainstitch Name Role Phone Ayden Angulo MD Primary Care Provider Unava ilable Reason for Visit * Reason Comments Conjunctivitis Mood Disorder Encounter Details Date Type Department Care Team (Late st Contact Info) Description 08/26/2020 14:15 EST Telemedicine [facility] Medicine [facility] [address], [address] [place] [address] Ayden Angulo MD Conjunctivitis, bacterial (Primary Dx); Mood disorder ([facility]) Social History Tobacco Use Types Packs/Day Years [...] Pain. Daily Max: 2 Tabs 56 Tab 08/26/2020 09/09/2020 lamoTRIgine (LAMICTAL) 25 mg tablet Take 1 Tab by mouth 2 times daily for 30 days. 60 Tab 2 08/26/2020 11/13/2020 polymyxin B sulf-trimethoprim (POLYTRIM) ophthalmic solution Place 1 Drop into affected eye(s) every 3 hours. Mainly before bedtime and on waking up 10 mL 08/26/2020 11/23/2020 documented in this encounter Progress Notes * Ayden Angulo MD - 08/26/2020 1415 EST [facility] [place] Video Visit Today's visit was provided through [...] or auxiliary staff: yes. Subjective: Chief Complaint(s): Conjunctivitis and Mood Disorder HPI: Allie calls with 2 concerns today: 1. Her left eye x5 days has a discharge and is almost sealed shut with debris which is greenish in color when she wakes up. She can think of no trauma to her eye. She is a washcloth to clean it and says her vision is normal at this I once she does that. She feels slightly puffy around the eyelids. She can think of no contact she has had with anyone with viral conjunctivitis given the pandemic 2. Mood is terrible. She says she is always sad inside I am quotes like that added with the woman has the happy face mask but really inside she is sad all the time. She does get irritable and blowupwith her kids and regrets this but feels as if there is a constant cycle of this. Sleep is poor. She is happy with her partner and where she is living at this point. She is plugged into the mental health agency and [facility] with once a week group therapy and once a week individual therapy. They have identified that I am always looking back at things that have messed up not forward. I have reviewed patient's tobacco history: reports that she has been smoking cigarettes. She has been smoking about 0.75 packs per day. She has never used smokeless tobacco. I have reviewed current problem list and current medications. ROS: ROS Patient is not drinking alcohol or abusing any substances. She does continue to smoke but has not picked up the amount she smokes no eye trauma noted Objective: Examination: Home Vitals: There were no vitals taken for this visit. Pertinent exam findings: appears well and mood and affect appropriate Data reviewed with patient: Reviewed and/or ordered active problem list, medication list, notes from last encounter tests Assessment & Plan: Allie was seen today for conjunctivitis and mood disorder. Diagnoses and all orders for this visit: Conjunctivitis, bacterial Comments: continue warm soaks. discussed past med reactions but she does not know which. willtry polymixin drops- call if worsening Mood disorder ([facility]) Comments: hard discussion. change of medication for now. recheck three weeks. continue with individual therapy. Other orders - polymyxin B sulf-trimethoprim (POLYTRIM) ophthalmic solution; Place 1 Drop into affected eye(s) every 3 hours. Mainly before bedtime and on waking up - lamoTRIgine (LAMICTAL) 25 mg tablet; Take 1 Tab by mouth 2 times daily for 30 days. - HYDROcodone-acetaminophen (NORCO) 10-325 mg tablet; Take 1 Tab by mouth every 6 hours as needed for up to 28 days for Pain. Daily Max: 2 Tabs A total of 32 minutes was spent on this encounter on the day of this encounter. The following individuals and their role did participate in today's encounter visit: Provider: Ayden Angulo MD Patient Spouse Allie was seen today for conjunctivitis and mood disorder. Diagnoses and all orders for this visit: Conjunctivitis, bacterial Comments: continue warm soaks. discussed past med reactions but she does not know which. willtry polymixin drops- call if worsening Mood disorder ([facility]) Comments: hard discussion. change of medication for now. recheck three weeks. continue with individual therapy. Other orders - polymyxin B sulf-trimethoprim (POLYTRIM) ophthalmic solution; Place 1 Drop into affected eye(s) every 3 hours. Mainly before bedtime and on waking up - lamoTRIgine (LAMICTAL) 25 mg tablet; Take 1 Tab by mouth 2 times daily for 30 days. - HYDROcodone-acetaminophen (NORCO) 10-325 mg tablet; Take 1 Tab by mouth every 6 hours as needed for up to 28 days for Pain. Daily Max: 2 Tabs documented in this encounter Plan of Treatment Not on file documented as of this encounter Visit Diagnoses Diagnosis Conjunctivitis, bacterial- Primary Other conjunctivitis Mood disorder ([facility]) Unspecified episodic mood disorder documented in this encounter Discontinued Medications Medication Sig Discontinue Reason Start Date End Da te ARIPiprazole (ABILIFY) 5 mg tablet Take 0.5 Tabs by mouth daily for 180 days. 07/02/2020 08/26/2020 documented as of this encounter Care Teams Felled Seam Operator Chainstitch Relationship Specialty Start Date End Date Ayden Angulo MD PCP - General 07/28/19 01/28/23 documented as of this encounter
--- OUTSIDE RECORDS SUMMARY | 2024-06-16 00:26 | XMS_ITS | Encounter Summary ---
Author Organization [facility] Address [address] [place] [address] Care Team Providers Care Car Painter Name Role Phone Ayden Angulo MD Primary Care Provider Unava ilable Reason for Visit * Reason Onset Date Comments Medications Refill 11/06/2020 Encounter Details Date Type Department Care Team (Late st Contact Info) Description 11/06/2020 Refill [facility] Family Medicine [facility] [address] , [address] [place] [address] Ayden Angulo MD Medications Refill Social History [...] Anxiety. Daily Max: 2 mg 30 Tab 11/07/2020 11/22/2020 documented in this encounter Miscellaneous Notes * Telephone Encounter - Debbie Linda LPN - 11/06/2020 1443 EST [facility] CONTROLLED MEDICATION REFILL Medication: lorazepam Medication, dose, directions verified: yes Pharmacy verified: yes Last office visit: 10/28/2020 Next office visit: pending Prescription due to be filled: Due Last urine drug screen: Due at next OV Last VPMS: 11/06/2020 -Per VPMS pt last filled medication on 02/01/2020 for 30d supply (#30 tabs) with no refills Last CSA: Due at next OV * Telephone Encounter - Leandra Pike - 11/06/2020 1309 EST Patient calling the Rx line requesting refills of the following medications: Lorazepam 0.5mg tablets Pharmacy: [facility] in [place] documented in this encounter Plan of Treatment Not on file documented as of this encounter Visit Diagnoses Not on filedocumented in this encounter Discontinued Medications Medication Sig Discontinue Reason Start Date End Da te LORazepam (ATIVAN) 0.5 mg tablet Take 2 Tabs by mouth 2 times daily as needed for Anxiety. Daily Max: 2 mg Reorder 10/17/2020 11/06/2020 documented as of this encounter Care Teams Car Painter Relationship Specialty Start Date End Date Ayden Angulo MD PCP - General 07/28/19 01/28/23 documented as of this encounter
--- OUTSIDE RECORDS SUMMARY | 2024-06-16 00:26 | XMS_ITS | Encounter Summary ---
Author Organization [facility] Address [address] [place] [address] Care Team Providers Care Car Lubricator Name Role Phone Ayden Angulo MD Primary Care Provider Unava ilable Reason for Visit * Reason Onset Date Comments Medications Refill 02/07/2021 Encounter Details Date Type Department Care Team (Late st Contact Info) Description 02/07/2021 Refill [facility] Family Medicine [facility] [address] , [address] [place] [address] Ayden Angulo MD Medications Refill Social History [...] TABLET BY MOUTH TWICE DAILY 60 Tab 02/07/2021 06/12/2021 documented in this encounter Miscellaneous Notes * Telephone Encounter - Krystle Feliz RN - 02/07/2021 1146 EDT JAMEL 01/24/21 NOV today rx sent to pharm documented in this encounter Plan of Treatment Not on file documented as of this encounter Visit Diagnoses Not on filedocumented in this encounter Discontinued Medications Medication Sig Discontinue Reason Start Date End Da te lamoTRIgine (LAMICTAL) 25 mg tablet Take 1 Tab by mouth daily. 01/26/2021 02/07/2021 documented as of this encounter Care Teams Car Lubricator Relationship Specialty Start Date End Date Ayden Angulo MD PCP - General 07/28/19 01/28/23 documented as of this encounter
--- OUTSIDE RECORDS SUMMARY | 2024-06-16 00:26 | XMS_ITS | Encounter Summary ---
Author Organization [facility] Address [address] [place] [address] Care Team Providers Care Vice President Business & Corporate Development Name Role Phone Ayden Angulo MD Primary Care Provider Mia Mcclendon DO Primary Care Provider + Javier Valenzuela RD Unavailable [phone] Reason for Visit * Reason Comments Other Encounter Details Date Type Department Care Team (Late st Contact Info) Description 03/12/2021 Refill [facility] Family Medicine [facility] [address], [facility] [address] [place], [place] [address] Ayden Angulo MD Other Social History Tobacco [...] Dispensed Refills Start Date End Da te varenicline (CHANTIX STARTING MONTH BOX) 0.5 mg (11)- 1 mg (42) tablet Take one 0.5mg tablet by mouth once daily x 3 days- then take one 0.5mg tablet twice daily x 4 days- then take one 1mg tablet twice daily 53 Tablet 03/13/2021 06/12/2021 documented in this encounter Miscellaneous Notes * Telephone Encounter - Kaia Ward RN - 03/12/2021 1051 EDT Ov 02/07 documented in this encounter Plan of Treatment Not on file documented as of this encounter Visit Diagnoses Not on filedocumented in this encounter Discontinued Medications Medication Sig Discontinue Reason Start Date End Da te varenicline (CHANTIX STARTING MONTH BOX) 0.5 mg (11)- 1 mg (42) tablet Take one 0.5mg tablet once daily x 3 days then take one 0.5mg tablet twice daily x 4 days then take one 1mg tablet twice daily 02/07/2021 03/13/2021 documented as of this encounter Care Teams Vice President Business & Corporate Development Relationship Specialty Start Date End Date Ayden Angulo MD PCP - General 07/28/19 01/28/23 Mia Alexander DO [address] [place] [id number] PCP - General Family Medicine - Primary Care 01/29/[address] [place] [address] Asbestos Abatement Worker (CDE) Diabetes Education 11/29/23 11/29/23 documented as of this encounter
--- OUTSIDE RECORDS SUMMARY | 2024-06-16 00:26 | XMS_ITS | Encounter Summary ---
Author Organization [facility] Address [address] [place] [address] Care Team Providers Care Mine Analyst Name Role Phone Ayden Angulo MD Primary Care Provider Unava ilable Reason for Visit * Reason Comments Other Encounter Details Date Type Department Care Team (Late st Contact Info) Description 05/02/2020 Refill [facility] [address], [address] [place] [address] Ayden Angulo MD Other Social History Tobacco [...] BY MOUTH ONE TIME DAILY 30 Cap 11 05/02/2020 04/21/2021 diclofenac (VOLTAREN) 75 mg EC tablet TAKE ONE TABLET BY MOUTH TWICE DAILY 60 Tab 11 05/02/2020 01/24/2021 documented in this encounter Miscellaneous Notes * Telephone Encounter - Preston Steward RN - 05/02/2020 1444 EDT Talked to the patient. She stopped taking the bupropion as it gave her headache. Now back on fluoxetine. Labs reviewed and patient made aware. Has telemed with TC. meds updated. Also patient wants TCto know that she started talking the lorazepam again.patient stated she cannot do it, she gets veryanxious. TC is aware. Has Telemed on 05/06 * Telephone Encounter - Preston Steward RN - 05/02/2020 1049 EDT To TC please review fluoxetine, not on active medlist says it was d/c on 02/22/20 on telemed to taperoff fluoxetine and will switch to bupropion * Telephone Encounter - Debbie Linda LPN - 05/02/2020 1041 EDT [facility] MEDICATION REFILL Medication: diclofenac, fluoxetine Medication, dose, directions verified: yes Pharmacy verified: yes Last office visit: 04/05/2020 Next office visit: 05/06/2020 Labs ordered 04/11/2020, due at next OV documented in this encounter Plan of Treatment Not on file documented as of this encounter Visit Diagnoses Not on filedocumented in this encounter Discontinued Medications Medication Sig Discontinue Reason Start Date End Da te diclofenac (VOLTAREN) 75 mg EC tablet TAKE ONE TABLET BY MOUTH TWICE DAILY 02/15/2020 05/02/2020 buPROPion (WELLBUTRIN XL) 300 mg XL tablet Take 1 Tab by mouth every morning. Patient Stopped Taking 02/22/2020 05/02/2020 documented as of this encounter Care Teams Mine Analyst Relationship Specialty Start Date End Date Ayden Angulo MD PCP - General 07/28/19 01/28/23 documented as of this encounter
--- OUTSIDE RECORDS SUMMARY | 2024-06-16 00:26 | XMS_ITS | Encounter Summary ---
Author Organization [facility] Address [address] [place] [address] Care Team Providers Care Pourer Crane Ladle Name Role Phone Ayden Angulo MD Primary Care Provider Unava ilable Reason for Visit * Reason Comments Extremity Weakness Encounter Details Date Type Department Care Team (Late st Contact Info) Description 10/28/2020 11:30 EST Telemedicine [facility] Family Medicine [facility] [address], [address] [place] [address] Ayden Angulo MD Morbid obesity ([facility]-CMS) (Primary Dx); Impaired glucose tolerance; Cerebrovascular accident (CVA), unspecified mechanism ([facility]-CMS); Left-sided chest wall pain Social History Tobacco Use Types Packs/Day [...] Progress Notes * Ayden Angulo MD - 10/28/2020 1130 EST [facility] [place] Visit Today's visit was provided through [...] or auxiliary staff: yes. Subjective: Chief Complaint(s): Extremity Weakness HPI: Allie calls today asking about her risk for severe COVID-19 infection. She is obese, prediabetic but most importantly in the past had a stroke already and worries about whether this would be a consequence of such infection. She asks about the safety of the vaccine as well. She worries as well abouther son who lives with her possibly bringing the illness to her (he works in a truck stop washing dishes but wears a mask there though he is part of a rescue squad as well and refused to get the vaccine). She wonders if there is any vitamin she should take that would help her prevent more severe Covid infection will add vitamin D 2000 IU to regimen 2. She has a bunch that keeps coming up and going down beneath her left breast. Its something hasbeen happening off and on for a year. She bought a wide Amged bandage and wraps around her midsectionwhich holds it in place and the pain goes down but then it pops out again. There was no trauma tothe site that she can remember. I have reviewed patient's tobacco history: reports that she has been smoking cigarettes. She has been smoking about 0.75 packs per day. She has never used smokeless tobacco. I have reviewed current problem list and current medications. ROS: ROS See HPI Objective: Examination: Home Vitals: There were no vitals taken for this visit. Pertinent exam findings: appears well, non-labored breathing and mood and affect appropriate Data reviewed with patient: Reviewed and/or ordered active problem list, medication list, notes from last encounter tests Assessment & Plan: Allie was seen today for extremity weakness. Diagnoses and all orders for this visit: Morbid obesity (HCC-CMS) Comments: goal of weight loss this summer Impaired glucose tolerance Cerebrovascular accident (CVA), unspecified mechanism (HCC-CMS) Comments: discussed need to get covid 19 vaccine when available for those who have a medical hx that puts them at risk, and add vitamin D 2000 IU now Left-sided chest wall pain Comments: discussed this is probably related to the 11th and 12th ribs, will examine in office. Trial of an abdominal wall binder. A total of 30 minutes was spent on this encounter on the day of this encounter. The following individuals and their role did participate in today's encounter visit: Provider: Ayden Angulo MD Patient documented in this encounter Plan of Treatment Not on file documented as of this encounter Visit Diagnoses Diagnosis Morbid obesity (HCC-CMS)- Primary Morbid obesity Impaired glucose tolerance Impaired glucose tolerance test Cerebrovascular accident (CVA), unspecified mechanism (HCC-CMS) Left-sided chest wall pain Painful respiration documented in this encounter Care Teams Pourer Crane Ladle Relationship Specialty Start Date End Date Ayden Angulo MD PCP - General 07/28/19 01/28/23 documented as of this encounter
--- OUTSIDE RECORDS SUMMARY | 2024-06-16 00:26 | XMS_ITS | Encounter Summary ---
Author Organization [facility] Address [address] [place] [address] Care Team Providers Care Risk Engineer Name Role Phone Ayden Angulo MD Primary Care Provider Unava ilable Reason for Visit * Reason Comments Other Encounter Details Date Type Department Care Team (Late st Contact Info) Description 02/07/2021 15:45 EDT Office Visit [facility] Medicine [facility] [address] [place] [address] Ayden Angulo MD Chronic narcotic use (Primary Dx); Connective tissue disease overlap syndrome (HCC-CMS); Panic attack; Cerebrovascular accident (CVA), unspecified mechanism (HCC-CMS) Social [...] Sign Reading Time Taken Comments Blood Pressure 130/76 02/07/2021 1609 EDT Pulse 100 02/07/2021 1609 EDT Temperature - - Respiratory Rate 22 02/07/2021 1609 EDT Oxygen Saturation - - Inhaled Oxygen Concentration - - Weight - - Height - - Body Mass Index - - documented in this encounter Ordered Prescriptions Prescription Sig Dispensed Refills Start Date End Da te HYDROcodone-acetaminophen (NORCO) 10-325 mg tablet Take 1 Tab by mouth every 6 hours as needed for up to 28 days for Pain. Daily Max: 2 Tabs 56 Tab 04/06/2021 05/01/2021 HYDROcodone-acetaminophen (NORCO) 10-325 mg tablet Take 1 Tab by mouth every 6 hours as needed for up to 28 days for Pain. Daily Max: 2 Tabs 56 Tab 03/09/2021 06/12/2021 HYDROcodone-acetaminophen (NORCO) 10-325 mg tablet Take 1 Tab by mouth every 6 hours as needed for up to 28 days for Pain. Daily Max: 2 Tabs 56 Tab 02/09/2021 06/12/2021 varenicline (CHANTIX STARTING MONTH BOX) 0.5 mg (11)- 1 mg (42) tablet Take one 0.5mg tablet once daily x 3 days then take one 0.5mg tablet twice daily x 4 days then take one 1mg tablet twice daily 42 Tab 02/07/2021 03/13/2021 aspirin 81 mg EC tablet Take 1 Tab by mouth daily. 100 Tab 4 02/07/2021 05/06/2022 citalopram (CELEXA) 20 mg tablet Take 1 Tab by mouth daily. 30 Tab 2 02/07/2021 04/30/2021 documented in this encounter Progress Notes * Ayden Angulo MD - 02/07/2021 4440 EDT [facility] Primary Care Subjective: Chief Complaint(s): No chief complaint on file. HPI: I space out. Says she does not legally drive since the stroke as there will be long stretches when she is unaware 2) has a cardiac flutter at times . Is surprised to hear the holter did not review much. 3 anxiety all day. Wakes up panicking. Till tking the aspirin. Told ibs I have reviewed patient's tobacco history: reports that she has been smoking cigarettes. She has been smoking about 0.75 packs per day. She has never used smokeless tobacco. Allergies Allergen Reactions ??? Erythromycin Other (See Comments) Unknown ??? Ophthalmic Unknown ??? Oxycodone-Acetaminophen Itching Current Outpatient Medications: ??? aspirin 81 mg EC tablet, Take 1 Tab by mouth daily., Disp: 100 Tab, Rfl: 4 ??? atorvastatin (LIPITOR) 40 mg tablet, Take 1 Tab by mouth daily., Disp: 90 Tab, Rfl: 5 ??? citalopram (CELEXA) 20 mg tablet, Take 1 Tab by mouth daily., Disp: 30 Tab, Rfl: 2 ??? FLUoxetine (PROZAC) 40 mg capsule, TAKE ONE CAPSULE BY MOUTH ONE TIME DAILY , Disp: 30 Cap, Rfl: 11 ??? HYDROcodone-acetaminophen (NORCO) 10-325 mg tablet, Take 1 Tab by mouth every 6 hours as neededfor up to 28 days for Pain. Daily Max: 2 Tabs, Disp: 56 Tab, Rfl: 0 ??? [START ON 03/09/2021] HYDROcodone-acetaminophen (NORCO) 10-325 mg tablet, Take 1 Tab by mouth every 6 hours as needed for up to 28 days for Pain. Daily Max: 2 Tabs, Disp: 56 Tab, Rfl: 0 ??? [START ON 04/06/2021] HYDROcodone-acetaminophen (NORCO) 10-325 mg tablet, Take 1 Tab by mouth every 6 hours as needed for up to 28 days for Pain. Daily Max: 2 Tabs, Disp: 56 Tab, Rfl: 0 ??? ibuprofen (MOTRIN) 800 mg tablet, Take 1 Tab by mouth every 8 hours as needed for Pain., Disp: 90 Tab, Rfl: 2 ??? lamoTRIgine (LAMICTAL) 25 mg tablet, TAKE ONE TABLET BY MOUTH TWICE DAILY , Disp: 60 Tab, Rfl: 0 ??? methocarbamoL (ROBAXIN) 750 mg tablet, Take 1 Tab by mouth every 6 hours as needed for Muscle Spasms., Disp: 20 Tab, Rfl: 0 ??? naloxone (NARCAN) 4 mg/actuation nasal spray, 1 [place] by nasal route as needed for Opioid Reversal., Disp: 1 [place], Rfl: 0 ??? nystatin (MYCOSTATIN) powder, APPLY 2 TIMES DAILY, Disp: , Rfl: ??? omeprazole (PRILOSEC) 20 mg capsule, TAKE ONE CAPSULE BY MOUTH ONE TIME DAILY, Disp: 30 Cap, Rfl: 5 ??? varenicline (CHANTIX STARTING MONTH BOX) 0.5 mg (11)- 1 mg (42) tablet, Take one 0.5mg tablet once daily x 3 days then take one 0.5mg tablet twice daily x 4 days then take one 1mg tablet twice daily, Disp: 42 Tab, Rfl: 0 No past medical history on file. No family history on file. No past surgical history on file. Social History Socioeconomic History ??? Marital status: Spouse name: Not on file ??? Number of children: Not on file ??? Years of education: Not on file ??? Highest education level: Not on file Occupational History ??? Not on file Social Needs ??? Financial resource strain: Not on file ??? Food insecurity Worry: Not on file Inability: Not on file ??? Transportation needs Medical: Not on file Non-medical: Not on file Tobacco Use ??? Smoking status: Current Every Day Smoker Packs/day: 0.75 Types: Cigarettes ??? Smokeless tobacco: Never Used Substance and Sexual Activity ??? Alcohol use: Yes Frequency: 2-4 times a month Drinks per session: 1 or 2 Binge frequency: Never ??? Drug use: Yes Frequency: 0.5 times per week Types: Marijuana ??? Sexual activity: Not on file Lifestyle ??? Physical activity Days per week: Not on file Minutes per session: Not on file ??? Stress: Not on file Relationships ??? Social connections Talks on phone: Not on file Gets together: Not on file Attends quaker service: Not on file Active member of club or organization: Not on file Attends meetings of clubs or organizations: Not on file Relationship status: Not on file ??? Intimate partner violence Fear of current or ex partner: Not on file Emotionally abused: Not on file Physically abused: Not on file Forced sexual activity: Not on file Other Topics Concern ??? Not on file Social History Narrative ??? Not on file I have reviewed current problem list and current medications. ROS: ROS *see hpi Objective: Examination: Vitals: BP 130/76 (BP Cuff Location: Left arm, BP Patient Position: Sitting, BP Cuff Sizes: Adult, large) Pulse 100 Resp 22 There is no height or weight on file to calculate BMI. Physical Exam Well seeming half maskless lungs clear heart rrr Data reviewed with patient past labs comparisons Assessment & Plan: 1. Chronic narcotic use POCT DRUG SCREEN, URINE - [facility] 2. Connective tissue disease overlap syndrome (HCC-CMS) for now, chronic pain meds. will need rheum evaluation again. 3. Panic attack meds. discussed psychosocial stressors and their management 4. Cerebrovascular accident (CVA), unspecified mechanism (HCC-CMS) do not drive. may want to see a neurologist, and think of seizure meds. Ayden Angulo MD * Capri Floyd RN - 02/07/2021 6064 EDT POCT urine drug screen completed by this RN. Pt positive for MOP, has rx for hydrocodone acetaminophen. Urine positive for benzos, pt has rx for lorazepam.Provider notified of results. documented in this encounter Plan of Treatment Not on file documented as of this encounter Procedures Procedure Name Priority Date/Time Associated Diagnosis Comments POCT DRUG SCREEN, URINE ([facility]) Routine 02/07/2021 Chronic narcotic use documented in this encounter Results * (ABNORMAL) POCT DRUG SCREEN, URINE - [facility] (02/07/2021) (mAMP) Methamphetami ne, POC Negative Negative [facility] POINT OF CARE (EARNEST) Cocaine, POC Negative Negative [facility] POINT OF CARE (THC) Marijuana, POC Negative Negative [facility] POINT OF CARE (MOR) Morphine, POC See Note [facility] POINT OF CARE Comment:see MOP result (MDMA) Methylenediox ymethamphetam ine, POC Negative Negative [facility] POINT OF CARE (MTD) Methadone, POC Negative Negative [facility] POINT OF CARE (BAR) Barbiturates, POC Negative Negative [facility] POINT OF CARE BZO) Benzodiazepin es, POC Positive(A) Negative [facility] POINT OF CARE Comment:Pt Rx'ed lorazepam (AMP) Amphetamine, POC Negative Negative [facility] POINT OF CARE (PCP) Phencyclidine , POC Negative Negative [facility] POINT OF CARE (OXY) Oxycodone, POC Negative Negative [facility] POINT OF CARE (MOP) Opiates, POC Positive(A) Negative [facility] POINT OF CARE Comment:Pt Rx'ed hydrocodone -acetaminophen QC Value Positive [facility] POIN T OF CARE Urine URINE / Unknown 02/07/2021 Ayden Angulo MD POINT OF CARE TEST O RDERABLES [facility] POINT OF CARE documented in this encounter Visit Diagnoses Diagnosis Chronic narcotic use- Primary Connective tissue disease overlap syndrome (HCC-CMS) Other specified diffuse disease of connective tissue Panic attack Panic disorder without agoraphobia Cerebrovascular accident (CVA), unspecified mechanism (HCC-CMS) documented in this encounter Discontinued Medications Medication Sig Discontinue Reason Start Date End Da te aspirin 81 mg EC tablet Take 1 Tab by mouth daily. Reorder 08/22/2019 02/07/2021 HYDROcodone-acetaminophe n (NORCO) 5-325 mg tabletIndications:Planta r fasciitis of right foot Take 1-2 Tabs by mouth every 6 hours as needed for up to 28 days for Pain. Daily Max: 8 Tabs 10/11/2019 11/08/2019 HYDROcodone-acetaminophe n (NORCO) 5-325 mg tablet Take 1 Tab by mouth every 6 hours as needed for up to 10 days for Pain. Daily Max: 2 Tabs 12/15/2019 12/25/2019 HYDROcodone-acetaminophe n (NORCO) 5-325 mg tablet Take 1-2 Tabs by mouth every 6 hours as needed for up to 28 days for Pain. Daily Max: 8 Tabs 01/22/2020 02/19/2020 HYDROcodone-acetaminophe n (NORCO) 5-325 mg tablet Take 1-2 Tabs by mouth every 6 hours as needed for up to 10 days for Pain. Note- acute injury, needs early bridge script amount. Daily Max: 8 Tabs 03/07/2020 03/17/2020 HYDROcodone-acetaminophe n (NORCO) 10-325 mg tablet Take 1 Tab by mouth every 6 hours as needed for up to 28 days for Pain. Daily Max: 2 Tabs 07/05/2020 08/02/2020 HYDROcodone-acetaminophe n (NORCO) 10-325 mg tablet Take 1 Tab by mouth every 6 hours as needed for up to 28 days for Pain. Daily Max: 2 Tabs Reorder 01/12/2021 02/07/2021 documented as of this encounter Care Teams Risk Engineer Relationship Specialty Start Date End Date Ayden Angulo MD PCP - General 07/28/19 01/28/23 documented as of this encounter
--- OUTSIDE RECORDS SUMMARY | 2024-06-16 00:26 | XMS_ITS | Encounter Summary ---
Author Organization [facility] Address [address] [place] [address] Care Team Providers Care Bow Rehairer Name Role Phone Ayden Angulo MD Primary Care Provider Unava ilable Reason for Visit * Reason Comments Anxiety Depression Encounter Details Date Type Department Care Team (Late st Contact Info) Description 07/02/2020 8:00 EDT Telemedicine [facility] Family Medicine [facility] [address], [address] [place] [address] Ayden Angulo MD Depression with anxiety (Primary Dx); Panic attack Social History Tobacco Use Types Packs/Day Years [...] Tabs by mouth daily for 180 days. 15 Tab 5 07/02/2020 08/26/2020 HYDROcodone-acetaminophen (NORCO) 10-325 mg tablet Take 1 Tab by mouth every 6 hours as needed for up to 28 days for Pain. Daily Max: 2 Tabs 56 Tab 07/05/2020 08/02/2020 documented in this encounter Progress Notes * Ayden Angulo MD - 07/02/2020 0800 EDT [facility] Video Visit Today's visit was provided through [...] Subjective: Chief Complaint(s): Anxiety and Depression HPI: Down all the time. I stay in bed. Knee, hip hurt.. the dog hurt my other knee, he slammed into it.. three weeks ago.. Something in the back hurts.. it pulls if I walk. Does have an ortho appt. Set up for the . Anxiety- high, panic attacks. No ER trip.. I handle it by calling my sister- distracts. I go once aweek. No prescribers.. feedback, none... I went three times via zoom. I have a fear of leaving the house. I take a lorazepam for panic for panic attacks. Stress of ex- calling and screaming... This is like when Sam went away. Went on for a year. I went into a shell. Not sure how I got out. Will not go outside. Is afraid it will trigger a panic attack. Makes plans, cannot go out. Diet is described as poor. No exercise. Says her relationship with boyfriend is solid. They talk every night. He is understanding. I have reviewed patient's tobacco history: reports that she has been smoking cigarettes. She has been smoking about 0.75 packs per day. She has never used smokeless tobacco. I have reviewed current problem list and current medications. ROS: ROS See hpi Objective: Examination: Home Vitals: There were no vitals taken for this visit. Pertinent exam findings: very casually dressed, looks at camera, somewhat flat sad appearance, at times a face of frustration describing her limitations Data reviewed with patient: Reviewed and/or ordered active problem list, medication list, notes from last encounter tests Assessment & Plan: Allie was seen today for anxiety and depression. Diagnoses and all orders for this visit: Depression with anxiety Comments: add abilify with standard warnings. to call if too sedating. keep up with groups. keep up with reassuring those in her life of temporary nature of this. Panic attack Comments: rare prn lorazepam Other orders - HYDROcodone-acetaminophen (NORCO) 10-325 mg tablet; Take 1 Tab by mouth every 6 hours as needed for up to 28 days for Pain. Daily Max: 2 Tabs - ARIPiprazole (ABILIFY) 5 mg tablet; Take 0.5 Tabs by mouth daily for 180 days. A total of 22 minutes was spent on this encounter on the day of this encounter. The following individuals and their role did participate in today's encounter visit: Provider: Ayden Angulo MD Patient documented in this encounter Plan of Treatment Not on file documented as of this encounter Visit Diagnoses Diagnosis Depression with anxiety- Primary Dysthymic disorder Panic attack Panic disorder without agoraphobia documented in this encounter Discontinued Medications Medication Sig Discontinue Reason Start Date End Da te varenicline (CHANTIX STARTING MONTH BOX) 0.5 mg (11)- 1 mg (42) tablet Take one 0.5mg tablet once daily x 3 days then take one 0.5mg tablet twice daily x 4 days then take one 1mg tablet twice daily 03/07/2020 07/02/2020 HYDROcodone-acetaminophe n (NORCO) 10-325 mg tablet Take 1 Tab by mouth every 6 hours as needed for up to 28 days for Pain. Daily Max: 2 Tabs Reorder 06/07/2020 07/02/2020 documented as of this encounter Care Teams Bow Rehairer Relationship Specialty Start Date End Date Ayden Angulo MD PCP - General 07/28/19 01/28/23 documented as of this encounter
--- OUTSIDE RECORDS SUMMARY | 2024-06-16 00:26 | XMS_ITS | Encounter Summary ---
Author Organization [facility] Address [address] [place] [address] Care Team Providers Care Slasher Tender Name Role Phone Ayden Angulo MD Primary Care Provider Unava ilable Reason for Visit * Reason Onset Date Comments Medications Refill 11/13/2020 Encounter Details Date Type Department Care Team (Late st Contact Info) Description 11/13/2020 Refill [facility] Family Medicine [facility] [address] , [address] [place] [address] Ayden Angulo MD Medications Refill Social History [...] Pain. Daily Max: 2 Tabs 56 Tab 11/17/2020 12/10/2020 naloxone (NARCAN) 4 mg/actuation nasal spray 1 [place] by nasal route as needed for Opioid Reversal. 1 [place] 11/13/2020 03/31/2022 documented in this encounter Miscellaneous Notes * Telephone Encounter - Debbie Linda LPN - 11/13/2020 1000 EST [facility] CONTROLLED MEDICATION REFILL Medication: hydrocodone Medication, dose, directions verified: yes Pharmacy verified: yes Last office visit: 10/28/2020 Next office visit: pending Prescription due to be filled: 11/17/2020 Last urine drug screen: Due at next OV Last VPMS: 11/13/2020 -Per VPMS pt last filled medication on 10/20/2020 for 28d supply (#56 tabs) with no refills Last CSA: Due at next OV Order pended with appropriate fill date. Narcan order also pended per protocol as pt is on concurrent opioid/benzo * Telephone Encounter - Daylin Guy RN - 11/13/2020 0933 EST Msg on rx line requesting refill of hydrocodone with tylenol due 11/17. documented in this encounter Plan of Treatment Not on file documented as of this encounter Visit Diagnoses Not on filedocumented in this encounter Discontinued Medications Medication Sig Discontinue Reason Start Date End Da te HYDROcodone-acetaminophe n (NORCO) 10-325 mg tablet Take 1 Tab by mouth every 6 hours as needed for up to 28 days for Pain. Daily Max: 2 Tabs Reorder 10/20/2020 11/13/2020 documented as of this encounter Care Teams Slasher Tender Relationship Specialty Start Date End Date Ayden Angulo MD PCP - General 07/28/19 01/28/23 documented as of this encounter
--- OUTSIDE RECORDS SUMMARY | 2024-06-16 00:26 | XMS_ITS | Encounter Summary ---
Author Organization [facility] Address [address] [place] [address] Care Team Providers Care Metal Loader Name Role Phone Ayden Angulo MD Primary Care Provider Unava ilable Reason for Visit * Reason Onset Date Comments Medication Problem 05/13/2020 Pharyngitis 05/13/2020 Encounter Details Date Type Department Care Team (Late st Contact Info) Description 05/13/2020 Telephone [facility] Family Medicine [facility] [address] [place] [address] Ayden Angulo MD Medication Problem; Pharyngitis Social History Tobacco Use Types Packs/Day [...] Telephone Encounter - Mitali Sena RN - 05/28/2020 0911 EDT Pt reports the sore on her left butt check is almost all healed after she popped it herself. Pt reports that she continues to have a sore throat and her joints feel achy. The joints aching pt states is due to a preexisting inflammatory issue she has. Pt states she did margie the covid hot line and was told to be tested but opted not to because she thought it would be negative like her sons result. The pt was advised to call the covid hot line again and get the test done if advised to do so. PT stated she would call today. * Telephone Encounter - Ayden Angulo MD - 05/23/2020 1133 EDT If she just has minor respiratory symptoms, no obvious exposure risk, and is at home, she should just ride it out at home unless symptoms of the uri change. * Telephone Encounter - Mitali Sena RN - 05/23/2020 1008 EDT Attempted to schedule pt. Pt currently has a sore throat, nasal congestion, sneezing. Pt did have SOB, loss of taste/smell and fever but those sxs have passed. Pt's son tested neg for Covid. Pt advised to call the covid hotline again. Pt wondering if she could do a zoom instead. TC-not sure if zoom is an effective means to evaluate this pt? * Telephone Encounter - Ayden Angulo MD - 05/23/2020 0654 EDT Would need to see her for this area. ? Next week * Telephone Encounter - Mitali Sena RN - 05/22/2020 1659 EDT Pt notified that her neurologist will need to let TC know that it is ok for her to take lorazepam before he can prescribe it again. Pt stated for last 1-2 months she has had a sore on her left butt check just above her thigh. Sore is red, the size of a golf ball and has a dime sized hard spot in it that is purple. Pt states the spot hurts when clothing rubs and when she is walking around. * Telephone Encounter - Starr Bro - 05/22/2020 1537 EDT Patient called back stating that no one has tried to call her. She would like a call back today. She is all out of her medication. * Telephone Encounter - Mitali Sena RN - 05/15/2020 1558 EDT Attempted to call pt, phone busy * Telephone Encounter - Ayden Angulo MD - 05/14/2020 1226 EDT We talked how her neurologist was concerned about her use of this given her spacing out episodes. Ineed her neurologist to clear her before prescribing more lorazepam * Telephone Encounter - Janie Melo RN - 05/13/2020 1542 EDT I don t see a rx frm last week,she says she has 10 tabs left, also re: respiratory sx I opeded a new TE and sent that piece to [facility] for scheduling * Telephone Encounter - Chun Tidwell - 05/13/2020 1108 EDT 1) pt says rx for lorazepam was written for her to take 1/2 tab 2x a day but only 15 days worth were rx'ed, she was wondering if she can have the rest of the month sent in? There were no refills. This was supposed to be fixed but was not 2) family has had sore throat, everyone is better except for her, she says there are white spots onher throat, son had negative covid test, right side throat hurts so much documented in this encounter Plan of Treatment Not on file documented as of this encounter Visit Diagnoses Not on filedocumented in this encounter Care Teams Metal Loader Relationship Specialty Start Date End Date Ayden Angulo MD PCP - General 07/28/19 01/28/23 documented as of this encounter
--- OUTSIDE RECORDS SUMMARY | 2024-06-16 00:26 | XMS_ITS | Encounter Summary ---
Author Organization [facility] Address [address] [place] [address] Care Team Providers Care Core Oven Tender Name Role Phone Ayden Angulo MD Primary Care Provider Unava ilable Reason for Visit * Reason Onset Date Comments Finger Injury 04/07/2021 Hand Injury 04/07/2021 Arm Injury 04/07/2021 Chest Injury 04/07/2021 Encounter Details Date Type Department Care Team (Late st Contact Info) Description 04/07/2021 Telephone [facility] [address] [place] [address] Ayden Angulo MD Finger Injury; Hand Injury; Arm Injury; Chest Injury Social History Tobacco Use Types Packs/Day [...] Telephone Encounter - Ayden Angulo MD - 04/07/2021 1229 EDT noted * Telephone Encounter - Deanna Bennett RN - 04/07/2021 1041 EDT Spoke w/ Allie, fell out of bed last week, declines eval to r/o fracture - will nani tape fingers and continue ice an ibuprofen and monitor for now - KEYA Lincoln * Telephone Encounter - Preeti Roberto - 04/07/2021 0932 EDT Patient reports she fell out of bed the other night. When she landed on her nightstand she fell on her chest, L arm & hand. She reports there is a huge black & blue on her chest and arm. She tried icing it, not helping. She said her ring & middle finger are the most painful. She wants to know what she should do? She said she has no way to get to [facility]. Advise. documented in this encounter Plan of Treatment Not on file documented as of this encounter Visit Diagnoses Not on filedocumented in this encounter Care Teams Core Oven Tender Relationship Specialty Start Date End Date Ayden Angulo MD PCP - General 07/28/19 01/28/23 documented as of this encounter
--- OUTSIDE RECORDS SUMMARY | 2024-06-16 00:26 | XMS_ITS | Encounter Summary ---
Author Organization [facility] Address [address] [place] [address] Care Team Providers Care Bottom Wheeler Name Role Phone Ayden Angulo MD Primary Care Provider Unava ilable Reason for Visit * Reason Onset Date Comments Medications Refill 01/08/2021 Encounter Details Date Type Department Care Team (Late st Contact Info) Description 01/08/2021 Refill [facility] Family Medicine [facility] [address] [place] [address] Ksenia Vazquez, BARNEY Medications Refill Social History Tobacco Use Types [...] Pain. Daily Max: 2 Tabs 56 Tab 01/12/2021 02/07/2021 documented in this encounter Miscellaneous Notes * Telephone Encounter - Lou Cheng - 01/09/2021 1307 EDT Spoke to pt, appt scheduled * Telephone Encounter - Debbie Linda LPN - 01/09/2021 1059 EDT TE to front office for scheduling * Telephone Encounter - Ayden Angulo MD - 01/09/2021 1041 EDT Set up ov in four weeks to discuss. Fabiola okay * Telephone Encounter - Debbie Linda LPN - 01/09/2021 0849 EDT [facility] CONTROLLED MEDICATION REFILL Medication: hydrocodone Medication, dose, directions verified: yes Pharmacy verified: yes Last office visit: 12/19/2020 Next office visit: none Prescription due to be filled: 01/12/2021 Last urine drug screen: Due at next OV Last VPMS: 01/09/2021 -Per VPMS pt last filled medication on 12/15/2020 for 28d supply (#56 tabs) with no refills Last CSA: Due at next OV Pt due to fill rx on 01/12/2021, order pended with appropriate fill date * Telephone Encounter - Ksenia Vazquez RN - 01/08/2021 1353 EDT Patient calling the Rx line requesting refills of the following medications: Hydrocodone Pharmacy: [facility] documented in this encounter Plan of Treatment Not on file documented as of this encounter Visit Diagnoses Not on filedocumented in this encounter Discontinued Medications Medication Sig Discontinue Reason Start Date End Da te HYDROcodone-acetaminophe n (NORCO) 10-325 mg tablet Take 1 Tab by mouth every 6 hours as needed for up to 28 days for Pain. Daily Max: 2 Tabs Reorder 12/15/2020 01/08/2021 documented as of this encounter Care Teams Bottom Wheeler Relationship Specialty Start Date End Date Ayden Angulo MD PCP - General 07/28/19 01/28/23 documented as of this encounter
--- OUTSIDE RECORDS SUMMARY | 2024-06-16 00:26 | XMS_ITS | Encounter Summary ---
Author Organization [facility] Address [address] [place] [address] Care Team Providers Care Associate Theatre Professor Name Role Phone Ayden Angulo MD Primary Care Provider Unava ilable Reason for Visit * Reason Onset Date Comments Medications Refill 05/01/2021 Encounter Details Date Type Department Care Team (Late st Contact Info) Description 05/01/2021 Refill [facility] Family Medicine [facility] [address] , [address] [place] [address] Ayden Angulo MD Medications Refill Social History [...] Pain. Daily Max: 2 Tablets 56 Tablet 05/03/2021 05/30/2021 documented in this encounter Miscellaneous Notes * Telephone Encounter - Lily Murguia PA-C - 05/01/2021 0922 EDT Done. * Telephone Encounter - Daylin Guy RN - 05/01/2021 0915 EDT Last appt 02/07/21, no follow up scheduled. Last UDS from 02/07/21 as well as CSA. Per VPMS last filled on 04/05 (although our script was written for 04/06), will be due 05/03 based on when she actually last filled (the ). To JG * Telephone Encounter - Starr Bro - 05/01/2021 0852 EDT Patient would like RX Hydrocodone 10-325 mg, Sig: Take 1 Tab by mouth every 6 hours as needed for up to 28 days for Pain. ??Daily Max: 2 Tabs called into the pharmacy. documented in this [...] for Pain. Daily Max: 2 Tabs Reorder 04/06/2021 05/01/2021 documented as of this encounter Care Teams Associate Theatre Professor Relationship Specialty Start Date End Date Ayden Angulo MD PCP - General 07/28/19 01/28/23 documented as of this encounter
--- OUTSIDE RECORDS SUMMARY | 2024-06-16 00:27 | XMS_ITS | Encounter Summary ---
Author Organization [facility] Address [address] [place] [address] Care Team Providers Care Narcotics Agent Name Role Phone Ayden Angulo MD Primary Care Provider Unava ilable Reason for Visit * Reason Onset Date Comments Medication Management 04/24/2020 medication refill Encounter Details Date Type Department Care Team (Late st Contact Info) Description 04/24/2020 Telephone [facility] Family Medicine [facility] [address] , [address] [place] [address] Ayden Angulo MD Medication Management (medication refill) [...] days for Pain. Daily Max: 4 Tabs 28 Tab 04/24/2020 05/23/2020 documented in this encounter Miscellaneous Notes * Telephone Encounter - Ayden Angulo MD - 04/24/2020 2201 EDT refilled * Telephone Encounter - Preston Steward RN - 04/24/2020 1432 EDT To TC * Telephone Encounter - Ramy Redd MD - 04/24/2020 1422 EDT Leaving for PCP to review if he is checking daily. * Telephone Encounter - Preston Steward RN - 04/24/2020 1403 EDT jaqueline 04/05/20 Nov 05/06/20 Last fill per vpms was 04/01/20, 28 pills for 28 days on the prescription patient sig: hydrocodone/ acetaminophen 5/325 mg every 6 hrs, 28 tabs for 28 days for other chronic pain. Patient is not due until 04/29/20 however if the sig is every 6 hrs, 28 tabs is not enough to cover 28 days. Ok to fill? Pended for your review. * Telephone Encounter - Starr Bro - 04/24/2020 1025 EDT Patient would like RX Hydrocodone called [...] for Pain. Daily Max: 4 Tabs Reorder 04/01/2020 04/24/2020 documented as of this encounter Care Teams Narcotics Agent Relationship Specialty Start Date End Date Ayden Angulo MD PCP - General 07/28/19 01/28/23 documented as of this encounter
--- OUTSIDE RECORDS SUMMARY | 2024-06-16 00:27 | XMS_ITS | Encounter Summary ---
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 Daily Max: 8 Tabs 28 Tab 02/19/2020 03/07/2020 HYDROcodone-acetaminophen (NORCO) 5-325 mg tablet Take 1-2 Tabs by mouth every 6 hours as needed for up to 28 days for Pain. Daily Max: 8 Tabs 28 Tab 01/22/2020 02/19/2020 documented in this encounter Progress Notes * Ayden Angulo MD - 01/05/2020 1340 EDT [facility] Video Visit Today's visit was provided through [...] Verbal consent obtained: yes. Subjective: Chief Complaint(s): No chief complaint on file. HPI: Not sleeping as much. Feeling better. If pain med, I need it. Pain is getting Worse. My kneepain is up intot he hip.. Not red. Feels like a water ballow. No falls now ,but in past.. Other joints, hands.. And the leg hurt befro that. Wants a pain opil- no lopy.. still smoking. moring stiff in Hands lmicl;w get sticl I have reviewed patient's tobacco history: reports that she has been smoking cigarettes. She has been smoking about 0.75 packs per day. She has never used smokeless tobacco. I have reviewed current problem list and current medications. ROS: Review of Systems Constitutional: Negative. Respiratory: Negative. Cardiovascular: Negative. Musculoskeletal: Positive for joint pain. Neurological: Negative. Objective: Examination: Home Vitals: There were no vitals taken for this visit. Pertinent exam findings: appears well and mood and affect appropriate Data reviewed with patient: Reviewed and/or ordered active problem list, medication list, allergies, social history, lab results, imaging tests Assessment & Plan: Diagnoses and all orders for this visit: Connective tissue disease overlap syndrome (HCC-CMS) Comments: with ongoing manifestations in knees, hands. will temporize with pain meds but i share with patienther frustration of no diagnosis that would firm up futurepla Kidney stone Comments: keep up with daily 8 -12 glasses of fluids Morbid obesity (HCC-CMS) Comments: referral on her request for a nutritonist r Orders: - AMB CONS/FOLLOW UP COMMUNITY [facility] TEAM; Future Cerebrovascular accident (CVA), unspecified mechanism (HCC-CMS) Comments: no further deficits noted. she has a regaining amount of quick responses, less lethargic Other orders - HYDROcodone-acetaminophen (NORCO) 5-325 mg tablet; Take 1-2 Tabs by mouth every 6 hours as neededfor up to 28 days for Pain. Daily Max: 8 Tabs - HYDROcodone-acetaminophen (NORCO) 5-325 mg tablet; Take 1-2 Tabs by mouth every 6 hours as neededfor up to 28 days for Pain. Daily Max: 8 Tabs I spent a total of 30* minutes with patient and >50% of that time was spent in counseling and coordination of care as described in the progress note. The following staff and their role did participate in today's encounter visit: Ayden Angulo MD documented in this encounter Plan of Treatment Not on file documented as of this encounter Visit Diagnoses Diagnosis Connective tissue disease overlap syndrome (HCC-CMS)- Primary Other specified diffuse disease of connective tissue Kidney stone Calculus of kidney Morbid obesity (HCC-CMS) Morbid obesity Cerebrovascular accident (CVA), unspecified mechanism (HCC-CMS) documented in this encounter Discontinued Medications Medication Sig Discontinue Reason Start Date End Da te HYDROcodone-acetaminophe n (NORCO) 5-325 mg tablet Take 1-2 Tabs by mouth every 6 hours as needed for Pain. Daily Max: 8 Tabs Reorder 01/02/2020 01/05/2020 documented as of this encounter Care Teams Control Area Operator Relationship Specialty Start Date End Date Ayden Angulo MD PCP - General 07/28/19 01/28/23 documented as of this encounter
--- OUTSIDE RECORDS SUMMARY | 2024-06-16 00:27 | XMS_ITS | Encounter Summary ---
Author Organization [facility] Address [address] [place] [address] Care Team Providers Care Academic Physician Name Role Phone Ayden Angulo MD Primary Care Provider Unava ilable Reason for Visit * Reason Comments Other Encounter Details Date Type Department Care Team (Late st Contact Info) Description 02/14/2020 Refill [facility] Family Medicine [facility] [address] [place] [address] Ayden Angulo MD Other Social History Tobacco [...] BY MOUTH TWICE DAILY 60 Tab 2 02/15/2020 05/02/2020 documented in this encounter Miscellaneous Notes * Telephone Encounter - Leandra Pike - 02/15/2020 0901 EDT [facility] MEDICATION REFILL Medication: Diclofenac 75mg EC tablets Medication, dose, directions verified: yes; 2x daily Pharmacy verified: yes Last office visit: 01/25/20 Next office visit: 04/05/20 documented in this encounter Plan of Treatment Not on file documented as of this encounter Visit Diagnoses Not on filedocumented in this encounter Discontinued Medications Medication Sig Discontinue Reason Start Date End Da te diclofenac (VOLTAREN) 75 mg EC tablet TAKE ONE TABLET BY MOUTH TWICE DAILY 11/16/2019 02/15/2020 documented as of this encounter Care Teams Academic Physician Relationship Specialty Start Date End Date Ayden Angulo MD PCP - General 07/28/19 01/28/23 documented as of this encounter
--- OUTSIDE RECORDS SUMMARY | 2024-06-16 00:27 | XMS_ITS | Encounter Summary ---
Author Organization [facility] Address [address] [place] [address] Care Team Providers Care Airfreight Operations Agent Name Role Phone Ayden Angulo MD Primary Care Provider Heidy dejesus Encounter Details Date Type Department Care Team (Late st Contact Info) Description 03/20/2020 14:00 EDT Community Health Team [facility] Adult Primary Care - [place] [address] [place] [address] [facility], [facility] Adult Social History Tobacco Use Types Packs/Day [...] as of this encounter Progress Notes * RaineMinisterio lunsford - 03/20/2020 1400 EDT [facility] Progress Note Date of Service: 03/20/2020 Primary Care Provider: Ayden Angulo Present Patient HPI Verbal consent: The concept of ???Telemedicine?? has been described to the patient.? Patient has been informed of the anticipated benefits and possible risks.? Patient understands the information provided regardingtelemedicine, has had the opportunity to ask questions about this information, and all questions have been answered to patient's satisfaction. Patient consents for the use of telemedicine in his/her medical care and authorizes the transmission of any relevant medical information to providers and their staff involved in patient's medical or mental health care. This visit was conducted via telephone. Subjective: (updates from last session) Allie presented as prepared for her scheduled telephone, changed from an in- person session because of the increased anxiety Allie has been experiencing, which has caused her to not leave her house for fear something bad will happen. Review of her current medication as well as newer experience with using Chantix to stop smoking. Remainder of session used for focused anxiety/panic attack work, using Yunior Small's techniques of externalizing the anxiety, with Allie able to identify an image for the fear, create an outcome picture/goal, identify an image/person to aid in her courage and grit to face this fear/monster. Allie created a short term goal for the evening and for the next day topractice with these skills as well as the regulating exercises she has been creating with the screenplay writer in previous sessions. Objective: Appearance: could not discern via telephone Behavior: Appropriate Thought Process: Coherent Thought Content: Appropriate Risk: No suicidal, homicidal or violent ideations, No plan and No intent Speech: Normal Mood: Anxious Affect: Broad Judgement: Good Insight: Appropriate Cognition: Normal Assessment: Allie has an increase in her anxiety and continues to be open to ideas/processing/creating new skills to practice, with the screenplay writer. Treatment Goals: Increase healthy coping strategies to aid in decreasing anxiety symptoms. Patient Active Problem List Diagnosis Date Noted ??? 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 Carpal tunnel syndrome of right wrist 09/05/2019 Priority: Medium ??? Depression with anxiety 09/05/2019 Priority: Medium ??? Hypoglycemia 09/05/2019 Priority: Medium ??? Impaired glucose tolerance 09/05/2019 Priority: Medium ??? Irritable bowel syndrome 09/05/2019 Priority: Medium ??? Kidney stone 09/05/2019 Priority: Medium ??? Morbid obesity ([facility]) 09/05/2019 Priority: Medium ??? Needle phobia 09/05/2019 Priority: Medium ??? Otalgia 09/05/2019 Priority: Medium ??? Panic attack 09/05/2019 Priority: Medium ??? Tobacco dependence syndrome 09/05/2019 Priority: Medium ??? Connective tissue disease overlap syndrome (HCC-CMS) 09/05/2019 Priority: Medium ??? CVA (cerebral vascular accident) ([facility]-CMS) 08/11/2019 Priority: Medium ??? Current moderate episode of major depressive disorder without prior episode ([facility]) 08/04/2019 Priority: Medium Treatment: Expressive arts/body based cognitive behavioral; psychoeducation around anxiety/regulation. Plan: Allie will practice with above techniques/interventions and be prepared for her next scheduled session. Duration of Session: 50 Minutes Follow up appointment: Visit date not found Electronically signed by MINISTERIO SHIELDS documented in this encounter Plan of Treatment Not on file documented as of this encounter Visit Diagnoses Not on filedocumented in this encounter Care Teams Airfreight Operations Agent Relationship Specialty Start Date End Date Ayden Angulo MD PCP - General 07/28/19 01/28/23 documented as of this encounter
--- OUTSIDE RECORDS SUMMARY | 2024-06-16 00:27 | XMS_ITS | Encounter Summary ---
Author Organization [facility] Address [address] [place] [address] Care Team Providers Care Baker Pie Name Role Phone Ayden Angulo MD Primary Care Provider Heidy dejesus Encounter Details Date Type Department Care Team (Late st Contact Info) Description 11/10/2019 13:00 EST Community Health Team [facility] [place] [facility] [place] [address] [address] [facility] Behavioral Health, [facility] Adult Social History Tobacco Use Types [...] encounter Progress Notes * RaineMinisterio lunsford - 11/10/[address] [facility] Outpatient Behavioral Health Progress Note Date of Service: 11/10/2019 Primary Care Provider: Ayden Angulo Present Patient HPI Subjective: (updates from last session) Allie presented on time for her scheduled session with her partner Enrique. Session used to addresshow her recent stroke and high inflammatory markers connect to her traumatic stress responses in her body, current stressors, in particular in her new employment, as well as her other self-care, including around exercise, managing thoughts, standing up for herself/saying no, and nutrition. Objective: Appearance: Appropriate Behavior: Appropriate Thought Process: Coherent Thought Content: Appropriate Risk: No suicidal, homicidal or violent ideations, No plan and No intent Speech: Normal Mood: Anxious Affect: Broad Judgement: Good Insight: Appropriate Cognition: Normal Assessment: Allie continues to work through her healing from her stroke as well as with trauma recovery work, struggling to make changes to her self-care, but showing openness to try new practices. Treatment Goals: Increase positive self-regard and self-efficacy; increase sense of power and control in relationships and in body/medical issues; decrease freeze response, increase flexibility and diversity in self-care/coping skills. Patient Active Problem List Diagnosis Date Noted ??? Carpal tunnel syndrome of right wrist 09/05/2019 Priority: Medium ??? Depression with anxiety 09/05/2019 Priority: Medium ??? Hypoglycemia 09/05/2019 Priority: Medium ??? Impaired glucose tolerance 09/05/2019 Priority: Medium ??? Irritable bowel syndrome 09/05/2019 Priority: Medium ??? Kidney stone 09/05/2019 Priority: Medium ??? Morbid obesity ([facility] 09/05/2019 Priority: Medium ??? Needle phobia 09/05/2019 Priority: Medium ??? Otalgia 09/05/2019 Priority: Medium ??? Panic attack 09/05/2019 Priority: Medium ??? Tobacco dependence syndrome 09/05/2019 Priority: Medium ??? Connective tissue disease overlap syndrome ([facility]) 09/05/2019 Priority: Medium ??? CVA (cerebral vascular accident) ([facility]) 08/11/2019 Priority: Medium ??? Current moderate episode of major depressive disorder without prior episode ([facility]) 08/04/2019 Priority: Medium Treatment: Psychoeducation of neurobiology of trauma/toxic stress responses; trauma recovery work/ARC; expressive arts/body based cognitive behavioral. Plan: Allie will practice with regulation and inner strength/self-efficacy imagery and body sense as well as communication practices created in session and will be in touch about next session. Duration of Session: 60 Minutes Follow up appointment: Visit date not found Electronically signed by MINISTERIO SHIELDS documented in this encounter Plan of Treatment Not on file documented as of this encounter Visit Diagnoses Not on filedocumented in this encounter Care Teams Baker Pie Relationship Specialty Start Date End Date Ayden Angulo MD PCP - General 07/28/19 01/28/23 documented as of this encounter
--- OUTSIDE RECORDS SUMMARY | 2024-06-16 00:27 | XMS_ITS | Encounter Summary ---
Author Organization [facility] Address [address] [place] [address] Care Team Providers Care Systems Planner Name Role Phone Ayden Angulo MD Primary Care Provider Heidy dejesus Encounter Details Date Type Department Care Team (Late st Contact Info) Description 02/15/2020 14:00 EDT Community Health Team [facility] Family Medicine [facility] [address] [place] [address] C[facility] Behavioral Health, [facility] Family Social History Tobacco Use Types Packs/Day Years [...] as of this encounter Progress Notes * Ministerio Shields - 02/15/2020 1400 EDT [facility] Outpatient Behavioral Health Progress Note Date of Service: 02/16/2020 Primary Care Provider: Ayden Angulo Present Patient [...] Allie presented as prepared for her scheduled telephone session, initial setting of therapeutic container led Allie to use her session to update the service writer of different interpersonal stressors and her management of these, including her work to practice new communication patterns discussed in previous sessions. Focused exploration around her continued migraines, her self-care around these, as wellas her sense of stress being a factor, with focus on her self-care, stress management, including around regulation/mindfulness practices, increasing her exercise. Objective: Appearance: could not discern via telephone Behavior: Appropriate Thought Process: Coherent Thought Content: Appropriate Risk: No suicidal, homicidal or violent ideations, No plan and No intent Speech: Normal Mood: Anxious Affect: Broad Judgement: Good Insight: Appropriate Cognition: Normal Assessment: Allie continues to work through different physical issues, while also maintaining new self-care practices, around nutrition and regulation, as well as communication skills. Treatment Goals: Continue to increase and strengthen healthy coping/self-care practices. Patient Active Problem List Diagnosis Date Noted ??? 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 Carpal tunnel syndrome of right wrist 09/05/2019 Priority: Medium ??? Depression with anxiety 09/05/2019 Priority: Medium ??? Hypoglycemia 09/05/2019 Priority: Medium ??? Impaired glucose tolerance 09/05/2019 Priority: Medium ??? Irritable bowel syndrome 09/05/2019 Priority: Medium ??? Kidney stone 09/05/2019 Priority: Medium ??? Morbid obesity ([facility]) 09/05/2019 Priority: Medium ??? Needle phobia 09/05/2019 Priority: Medium ??? Otalgia 09/05/2019 Priority: Medium ??? Panic attack 09/05/2019 Priority: Medium ??? Tobacco dependence syndrome 09/05/2019 Priority: Medium ??? Connective tissue disease overlap syndrome ([facility]) 09/05/2019 Priority: Medium ??? CVA (cerebral vascular accident) ([facility]) 08/11/2019 Priority: Medium ??? Current moderate episode of major depressive disorder without prior episode ([facility]) 08/04/2019 Priority: Medium Treatment: Trauma/ARC recovery work; expressive arts/body based cognitive behavioral. Plan: Allie will practice with above stated interventions/ideas and be prepared for her next scheduled session. Duration of Session: 50 Minutes Follow up appointment: Visit date not found Electronically signed by MINISTERIO SHIELDS documented in this encounter Plan of Treatment Not on file documented as of this encounter Visit Diagnoses Not on filedocumented in this encounter Care Teams Systems Planner Relationship Specialty Start Date End Date Ayden Angulo MD PCP - General 07/28/19 01/28/23 documented as of this encounter
--- OUTSIDE RECORDS SUMMARY | 2024-06-16 00:27 | XMS_ITS | Encounter Summary ---
Author Organization [facility] Address [address] [place] [address] Care Team Providers Care Staffing Branch Manager Name Role Phone Ayden Angulo MD Primary Care Provider Unava ilable Reason for Visit * Reason Onset Date Comments URI 12/12/2019 Medications Refill 12/12/2019 Encounter Details Date Type Department Care Team (Late st Contact Info) Description 12/12/2019 Telephone [facility] [place] [address], [address] [place] [address] Ayden Angulo MD URI; Medications Refill Social History Tobacco Use Types [...] encounter Miscellaneous Notes * Telephone Encounter - Janie Melo RN - 12/12/2019 1542 EDT Pt advised, rre refills I asked her to call her pharmacy and see what she needs, she s not sure if she eeds anything she s just worried the pharmacy may close down, I told her they shouldn t happen * Telephone Encounter - Kayla Ambriz APRN - 12/12/2019 1514 EDT Please let Allie know that no change to recommendation from Dr Angulo. She should self isolate, check temp 2 times a day, wash hand regularly, avoid touching face, stay well hydrated, eat well. Callif short of breath cough and fever. No medications needed at this time, no refills sent because notsure of what exactly she needs. Thanks * Telephone Encounter - Preeti Roberto - 12/12/2019 1359 EDT Patient spoke to TC yesterday, he requested she call back if symptoms worsen. Patient states they have worsened, she reports she feels flush/chills (no temp recorded). No N/V/D, no SOB, some wheezing& congestion. Verified [facility] on file. Additionally patient requested we send in all refills coming due at the same time so she only goes once. Please advise. documented in this encounter Plan of Treatment Not on file documented as of this encounter Visit Diagnoses Not on filedocumented in this encounter Care Teams Staffing Branch Manager Relationship Specialty Start Date End Date Ayden Angulo MD PCP - General 07/28/19 01/28/23 documented as of this encounter
--- OUTSIDE RECORDS SUMMARY | 2024-06-16 00:27 | XMS_ITS | Encounter Summary ---
Author Organization [facility] Address [address] [place] [address] Care Team Providers Care Pigeon Fancier Name Role Phone Ayden Angulo MD Primary Care Provider Unava ilable Reason for Visit * Reason Comments Follow-up Encounter Details Date Type Department Care Team (Late st Contact Info) Description 12/29/2019 13:00 EDT Telemedicine [facility] Adult Primary Care - [place] [address] [place] [id number] [facility] Behavioral Health, [facility] Adult Chronic post-traumatic stress disorder (PTSD) (Primary Dx) Social History Tobacco Use Types [...] encounter Progress Notes * Ministerio Shields - 12/29/2019 1300 EDT [facility] Outpatient Behavioral Health Progress Note Date of Service: 12/29/2019 Primary Care Provider: Ayden Angulo Present Patient HPI Subjective: (updates from last session) Allie presented as prepared for her scheduled telephone session, initial setting of the therapeuticcontainer. Allie updated the web content writer on her anger/regulation and kindness work/plan that was createdlast session, reporting having practiced with some success and is continuing to practice daily. Discussion and exploration around meaning making, finding middle ground with home cleaning/choreswith her family, around her communication patterns, as well as structuring her and her sons' days during their quarantine. Allie shared about her medication/prescriptions, reporting a miscommunication at the pharmacy around her Klonopin, reporting concern about increase anxiety, irritability, nightmares. Lorazepam still as PRN. Agreement for her to call Dr. Angulo today and for the web content writer to also send a note. Objective: Appearance: not able to discern Behavior: Appropriate Thought Process: Coherent Thought Content: Appropriate Risk: No suicidal, homicidal or violent ideations, No plan and No intent Speech: Normal Mood: Anxious Affect: Broad Judgement: Good Insight: Appropriate Cognition: Normal Assessment: Allie continues self-awareness and regulation practice, being open to ideas and changes for herselfand to share with her family. Treatment Goals: Strengthen and increase healthy coping and communication skills; increase affect awareness; increase self-care/regulation practice around trauma responses/anxiety. Patient Active Problem List Diagnosis Date Noted ??? Carpal tunnel syndrome of right wrist 09/05/2019 Priority: Medium ??? Depression with anxiety 09/05/2019 Priority: Medium ??? Hypoglycemia 09/05/2019 Priority: Medium ??? Impaired glucose tolerance 09/05/2019 Priority: Medium ??? Irritable bowel syndrome 09/05/2019 Priority: Medium ??? Kidney stone 09/05/2019 Priority: Medium ??? Morbid obesity ([facility]) 09/05/2019 Priority: Medium ??? Needle phobia 09/05/2019 Priority: Medium ??? Otalgia 09/05/2019 Priority: Medium ??? Panic attack 09/05/2019 Priority: Medium ??? Tobacco dependence syndrome 09/05/2019 Priority: Medium ??? Connective tissue disease overlap syndrome ([facility]) 09/05/2019 Priority: Medium ??? CVA (cerebral vascular accident) ([facility]) 08/11/2019 Priority: Medium ??? Current moderate episode of major depressive disorder without prior episode ([facility]) 08/04/2019 Priority: Medium Treatment: Expressive arts/body based cognitive behavioral. Plan: Allie will practice with above interventions and self-care, will call Dr. Angulo around her medication; the web content writer will email Dr. Angulo about her medication and Allie will be prepared for her next scheduled telephone session. Duration of Session: 50 Minutes Follow up appointment: Visit date not found Electronically signed by MINISTERIO SHIELDS documented in this encounter Plan of Treatment Not on file documented as of this encounter Visit Diagnoses Diagnosis Chronic post-traumatic stress disorder (PTSD)- Primary documented in this encounter Care Teams Pigeon Fancier Relationship Specialty Start Date End Date Ayden Angulo MD PCP - General 07/28/19 01/28/23 documented as of this encounter
--- OUTSIDE RECORDS SUMMARY | 2024-06-16 00:27 | XMS_ITS | Encounter Summary ---
Author Organization [facility] Address [address] [place] [address] Care Team Providers Care Coating Mixer Supervisor Name Role Phone Ayden Angulo MD Primary Care Provider Heidy dejesus Encounter Details Date Type Department Care Team (Late st Contact Info) Description 04/26/2020 10:30 EDT Community Health Team [facility] [place] [address] [place] [address] [facility] Behavioral Health, [facility] Adult Social History Tobacco Use Types Packs/Day [...] encounter Progress Notes * Ministerio Shields - 04/26/2020 1030 EDT [facility] Outpatient Behavioral Health Progress Note Date of Service: 05/01/2020 Primary Care Provider: Ayden Angulo Present Patient HPI Subjective: (updates from last session) Allie presented as prepared for her scheduled video session and used her session to update the speech writer that she had successfully connected with [facility] services in [facility] (the ).Session used to review Allie's work, changes she has been through since starting counseling with the speech writer in July 2019, including being able to talk about trauma experiences, learning about neurobiology of trauma as well as increasing her healthy and creative coping skills for practice. Objective: Appearance: Appropriate Behavior: Appropriate Thought Process: Coherent Thought Content: Appropriate Risk: No suicidal, homicidal or violent ideations, No plan and No intent Speech: Normal Mood: Anxious Affect: Broad Judgement: Good Insight: Appropriate Cognition: Normal Assessment: Allie successfully moves onto to longer term counseling supports having worked with shalini and aleta to begin her trauma recovery work. Treatment Goals: treatment has ended with pt continuing therapy at the in [facility]. Patient Active Problem List Diagnosis Date Noted [...] Priority: Medium ??? Morbid obesity ([facility]) 09/05/2019 Priority: Medium ??? Needle phobia 09/05/2019 Priority: Medium ??? Otalgia 09/05/2019 Priority: Medium ??? Panic attack 09/05/2019 Priority: Medium ??? Tobacco dependence syndrome 09/05/2019 Priority: Medium ??? Connective tissue disease overlap syndrome ([facility]) 09/05/2019 Priority: Medium ??? CVA (cerebral vascular accident) ([facility]) 08/11/2019 Priority: Medium ??? Current moderate episode of major depressive disorder without prior episode ([facility]) 08/04/2019 Priority: Medium Treatment: completed with speech writer as of this writing. Plan: Pt will continue treatment the the in [facility]. Duration of Session: 50 Minutes Follow up appointment: Visit date not found Electronically signed by MINISTERIO SHIELDS documented in this encounter Plan of Treatment Not on file documented as of this encounter Visit Diagnoses Not on filedocumented in this encounter Care Teams Coating Mixer Supervisor Relationship Specialty Start Date End Date Ayden Angulo MD PCP - General 07/28/19 01/28/23 documented as of this encounter
--- OUTSIDE RECORDS SUMMARY | 2024-06-16 00:27 | XMS_ITS | Encounter Summary ---
Author Organization [facility] Address [address] [place] [address] Care Team Providers Care Change Release Manager Name Role Phone Ayden Angulo MD Primary Care Provider Unava ilable Reason for Visit * Reason Comments Follow-up Encounter Details Date Type Department Care Team (Late st Contact Info) Description 12/22/2019 13:00 EDT Telemedicine [facility] Adult Primary Care - [place] [address] [place] [address] [facility] Behavioral [facility], [facility] Adult Chronic post-traumatic stress disorder (PTSD) [...] encounter Progress Notes * Ministerio Shields - 12/22/2019 1300 EDT [facility] Outpatient Behavioral Health Progress Note Date of Service: 12/26/2019 Primary Care Provider: Ayden Angulo Present Patient [...] telephone. Subjective: (updates from last session) Allie was prepared for her scheduled telephone session, initial setting of therapeutic container led to Allie sharing updated with the story writer in particular around her self-care and communication skills around on-going stressor with her new work. Body based exploration around her relationship and expression of anger, connected to her trauma work and defense awareness, to create a center place, in between extreme reactions/patterns, for Allie to practice for regulation as well as being able to speak a truth in a more calm/center way. Objective: Appearance: telephone session, could not discern Behavior: Appropriate Thought Process: Coherent Thought Content: Appropriate Risk: No suicidal, homicidal or violent ideations, No plan and No intent Speech: Normal Mood: Anxious Affect: Broad Judgement: Good Insight: Appropriate Cognition: Normal Assessment: Allie continues her trauma recovery work, identifying how her anger is used as a defense and how itcan also hurt others,which she identifies she does not want to do. Treatment Goals: Increase healthy coping skills and communication skills. Patient Active Problem List Diagnosis Date Noted ??? Carpal tunnel syndrome of right wrist 09/05/2019 Priority: Medium ??? Depression with anxiety 09/05/2019 Priority: Medium ??? Hypoglycemia 09/05/2019 Priority: Medium ??? Impaired glucose tolerance 09/05/2019 Priority: Medium ??? Irritable bowel syndrome 09/05/2019 Priority: Medium ??? Kidney stone 09/05/2019 Priority: Medium ??? Morbid obesity ([facility]) 09/05/2019 Priority: Medium ??? Needle phobia 09/05/2019 Priority: Medium ??? Otalgia 09/05/2019 Priority: Medium ??? Panic attack 09/05/2019 Priority: Medium ??? Tobacco dependence syndrome 09/05/2019 Priority: Medium ??? Connective tissue disease overlap syndrome ([facility]) 09/05/2019 Priority: Medium ??? CVA (cerebral vascular accident) ([facility]) 08/11/2019 Priority: Medium ??? Current moderate episode of major depressive disorder without prior episode ([facility]) 08/04/2019 Priority: Medium Treatment: Expressive arts/body based cognitive behavioral; trauma recovery/ARC. Plan: Allie will practice with work created in session and be prepared for her next scheduled session. Duration of Session: 60 Minutes Follow up appointment: 12/29/2019 Electronically signed by MINISTERIO SHIELDS documented in this encounter Plan of Treatment Not on file documented as of this encounter Visit Diagnoses Diagnosis Chronic post-traumatic stress disorder (PTSD)- Primary documented in this encounter Care Teams Change Release Manager Relationship Specialty Start Date End Date Ayden Angulo MD PCP - General 07/28/19 01/28/23 documented as of this encounter
--- OUTSIDE RECORDS SUMMARY | 2024-06-16 00:27 | XMS_ITS | Encounter Summary ---
Author Organization [facility] Address [address] [place] [address] Care Team Providers Care Investigations Director Name Role Phone Ayden Angulo MD Primary Care Provider Heidy dejesus Encounter Details Date Type Department Care Team (Late st Contact Info) Description 03/06/2020 14:00 EDT Community [facility] Team [facility] [place] [facility] [place] [address] [place] [address] [facility]ht Behavioral Health, [facility] Adult Social History Tobacco Use Types Packs/Day [...] encounter Progress Notes * RaineMinisterio lunsford - 03/06/2020 1400 EDT [facility] Outpatient Behavioral Health Progress Note Date of Service: 03/06/2020 Primary Care Provider: Ayden Angulo Present Patient [...] setting of therapeutic container led Allie to share about her last few weeks, including changes to her medication, related to her migraines, anxiety and depression symptoms, as well as an injury to her knee. Exploration aroundher stress/arousal levels, inflammation and her healthy coping skills she has been practicing, including around continued positive changes to her nutrition, exercise and grounding/regulation. Allie shared she has not returned to drinking soda but is drinking a sweet instant cappuccino drink and will look up sugar levels for this as well as assess the number of drinks she is having per day. Allie shared she has tried the exercise videos on line suggested by the card writer hand and has been doing them (she found one she liked), as well as sharing that she has been practicing with a regulation/mindfulness and movement sequence created in session a few months ago. Session also used to teach/practice Emotional [place] Technique (tapping) for another regulation exercise for Allie to practice. Allie agreed for the card writer hand to update Dr. Angulo about the above focus for her counseling for further collaboration. Objective: Appearance: could not discern via telephone Behavior: Appropriate Thought Process: Coherent Thought Content: Appropriate Risk: No suicidal, homicidal or violent ideations, No plan and No intent Speech: Normal Mood: Anxious Affect: Broad Judgement: Good Insight: Appropriate Cognition: Normal Assessment: Allie continues to struggle with anxiety and depression symptoms, as well as physical injury and issues, but continues to be open to making healthy changes. Treatment Goals: Continue to strengthen and increase healthy self-care and coping skills; decrease anxiety and depression symptoms. Patient Active Problem List Diagnosis Date [...] Priority: Medium ??? Morbid obesity ([facility]) 09/05/2019 Priority: Medium ??? Needle phobia 09/05/2019 Priority: Medium ??? Otalgia 09/05/2019 Priority: Medium ??? Panic attack 09/05/2019 Priority: Medium ??? Tobacco dependence syndrome 09/05/2019 Priority: Medium ??? Connective tissue disease overlap syndrome ([facility]) 09/05/2019 Priority: Medium ??? CVA (cerebral vascular accident) ([facility]) 08/11/2019 Priority: Medium ??? Current moderate episode of major depressive disorder without prior episode ([facility]) 08/04/2019 Priority: Medium Treatment: Trauma/ARC recovery work; expressive arts/body based cognitive behavioral. Plan: Allie will practice with above interventions and be prepared for her next scheduled session; the card writer hand will communicate updates to Dr. Angulo. Duration of Session: 50 Minutes Follow up appointment: 03/20/2020 Electronically signed by MINISTERIO SHIELDS documented in this encounter Plan of Treatment Not on file documented as of this encounter Visit Diagnoses Not on filedocumented in this encounter Care Teams Investigations Director Relationship Specialty Start Date End Date Ayden Angulo MD PCP - General 07/28/19 01/28/23 documented as of this encounter
--- OUTSIDE RECORDS SUMMARY | 2024-06-16 00:27 | XMS_ITS | Encounter Summary ---
Author Organization [facility] Address [address] [place] [address] Care Team Providers Care Halal Meat Packer Name Role Phone Ayden Angulo MD Primary Care Provider Unava ilable Reason for Visit * Reason Onset Date Comments Vaginitis 11/29/2019 Encounter Details Date Type Department Care Team (Late st Contact Info) Description 11/29/[address] [facility] [place] [address] , [address] [place] [address] Ayden Angulo MD Vaginitis Social History Tobacco Use Types Packs/Day Years [...] Da te fluconazole (DIFLUCAN) 150 mg tablet Take 1 Tab by mouth once for 1 dose. May repeat once after 3 days if symptoms persist 1 Tab 1 11/29/2019 01/23/2020 documented in this encounter Miscellaneous Notes * Telephone Encounter - Janie Melo RN - 11/29/2019 1043 EDT Pt advised was done * Telephone Encounter - Kayla Ambriz APRN - 11/29/2019 1039 EDT Diflucan sent. Thanks * Telephone Encounter - Janie Melo RN - 11/29/2019 0841 EDT Pt has had yeast infections in the past, sx the same, she has been using otc creams and not gettingany relief, has used diflucan in the past and would like a rx * Telephone Encounter - Lou Cheng - 11/29/2019 0836 EDT Pt has a yeast infection, everything she has tried has not worked and it is getting worse. Pt looking for an rx to be sent to [facility] in [place] documented in this encounter Plan of Treatment Not on file documented as of this encounter Visit Diagnoses Not on filedocumented in this encounter Care Teams Halal Meat Packer Relationship Specialty Start Date End Date Ayden Angulo MD PCP - General 07/28/19 01/28/23 documented as of this encounter
--- OUTSIDE RECORDS SUMMARY | 2024-06-16 00:27 | XMS_ITS | Encounter Summary ---
Author Organization [facility] Address [address] [place] [address] Care Team Providers Care Environmental Remediation Engineer Name Role Phone Ayden Angulo MD Primary Care Provider Unava ilable Reason for Visit * Reason Onset Date Comments Appointment Related 03/15/2020 Encounter Details Date Type Department Care Team ([facility] st Contact Info) Description 03/15/2020 Telephone [facility] [place] - [place] [address] [place] [address] Sasha Shields [address] [place], [place] [id number] Appointment Related Social History Tobacco Use Types [...] encounter Miscellaneous Notes * Telephone Encounter - Sasha Shields - 03/15/2020 6293 EDT Spoke w/pt regarding in-person session 03/20/2020 @ 2:00. Reviewed in person COVID policy. documented in this encounter Plan of Treatment Not on file documented as of this encounter Visit Diagnoses Not on filedocumented in this encounter Care Teams Environmental Remediation Engineer Relationship Specialty Start Date End Date Ayden Angulo MD PCP - General 07/28/19 01/28/23 documented as of this encounter
--- OUTSIDE RECORDS SUMMARY | 2024-06-16 00:27 | XMS_ITS | Encounter Summary ---
Author Organization [facility] Address [address] [place] [address] Care Team Providers Care Geochemist Name Role Phone Ayden Angulo MD Primary Care Provider Unava ilable Reason for Visit * Reason Onset Date Comments Medication Management 03/20/2020 medication refill Encounter Details Date Type Department Care Team (Late st Contact Info) Description 03/20/2020 Telephone [facility] [place] [address] [address] , [facility] [address] [place] [address] Ayden Angulo MD Medication Management (medication refill) [...] Start Date End Da te LORazepam (ATIVAN) 1 mg tablet Take 0.5 Tabs by mouth 2 times daily for 30 days. Daily Max: 1 mg 15 Tab 1 03/30/2020 04/05/2020 documented in this encounter Miscellaneous Notes * Telephone Encounter - Ayden Angulo MD - 03/21/2020 0625 EDT done * Telephone Encounter - Preston Steward, RN - 03/20/2020 1450 EDT jaqueline 03/07/20 04/05/20 nov vpms 02/29/20 , 30tabs, 30 day supply patient is due 03/30/20 * Telephone Encounter - Starr Bro - 03/20/2020 1132 EDT Patient would like RX Lorazepam called into the pharmacy. documented in this encounter Plan of Treatment Not on file documented as of this encounter Visit Diagnoses Not on filedocumented in this encounter Discontinued Medications Medication Sig Discontinue Reason Start Date End Da te LORazepam (ATIVAN) 1 mg tablet Take 12 tablet by mouth 2 times daily as needed for up to 30 days for Anxiety. Daily Max 1 mg Reorder 12/29/2019 03/20/2020 documented as of this encounter Care Teams Geochemist Relationship Specialty Start Date End Date Ayden Angulo MD PCP - General 07/28/19 01/28/23 documented as of this encounter
--- OUTSIDE RECORDS SUMMARY | 2024-06-16 00:27 | XMS_ITS | Encounter Summary ---
Author Organization [facility] Address [address] [place] [address] Care Team Providers Care Die Repair Machinist Name Role Phone Ayden Angulo MD Primary Care Provider Unava ilable Reason for Visit * Reason Onset Date Comments Medications Refill 01/02/2020 Hydrocodone Encounter Details Date Type Department Care Team (Late st Contact Info) Description 01/02/2020 Telephone [facility] [place] [place] [address] , [facility] [address] [place] [address] Ayden Angulo MD Medications Refill (Hydrocodone) Social History Tobacco Use Types Packs/Day Years [...] needed for Pain. Daily Max: 8 Tabs 20 Tab 01/02/2020 01/05/2020 documented in this encounter Miscellaneous Notes * Telephone Encounter - Ayden Angulo MD - 01/02/2020 5486 EDT done * Telephone Encounter - Lindy Champion - 01/02/2020 1414 EDT Last filled 12/15 qty 20 via vpms pls advise * Telephone Encounter - Preeti Roberto - 01/02/2020 1318 EDT Patient requesting a renewal of Rx Hydrocodone to treat knee pain. Knee pain started 12/31 into today, progressing. 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 Patient asked to schedule Zoom visit with stefany THOMAS booked for 01/04 @ 1:40 pm. Verified pharmacy on file, please advise. documented in this encounter Plan of Treatment Not on file documented as of this encounter Visit Diagnoses Not on filedocumented in this encounter Care Teams Die Repair Machinist Relationship Specialty Start Date End Date Ayden Angulo MD PCP - General 07/28/19 01/28/23 documented as of this encounter
--- OUTSIDE RECORDS SUMMARY | 2024-06-16 00:27 | XMS_ITS | Encounter Summary ---
Author Organization [facility] Address [address] [place] [address] Care Team Providers Care Review Engineer Name Role Phone Ayden Angulo MD Primary Care Provider Unava ilable Reason for Visit * Reason Onset Date Comments Joint Swelling 02/26/2020 Encounter Details Date Type Department Care Team (Late st Contact Info) Description 02/26/2020 Telephone [facility] [address] , [address] [place] [address] Ayden Angulo MD Joint Swelling Social History Tobacco Use Types Packs/Day Years [...] Telephone Encounter - Mitali Sena RN - 02/26/2020 1700 EDT Pt notified. Pt will call back if sxs don't improve. * Telephone Encounter - Mitali Sena RN - 02/26/2020 1342 EDT Attempted to call, no answer * Telephone Encounter - Ayden Angulo MD - 02/26/2020 1223 EDT Yes, can use diclofenac. Should stay off o f It, ice it as well. If pain persists, may need prednisone * Telephone Encounter - Mitali Sena RN - 02/26/2020 1006 EDT Pt reports doing a lot of work yesterday and waking up with a swollen and painful right knee. Swelling on back of knee and the lateral bottom quadrant of the knee. Pain 10/10 with step/bend, 6-7 out of 10 with sit/elevate. Pt states feels like a water balloon in there. Pt using ice and elevation. Pt concerned about whether she can use diclofenac with new Rx for Wellbutrin. [place] is not touchingthe pain. * Telephone Encounter - Starr Bro - 02/26/2020 0920 EDT Patient started a new medication four days ago. She states that she woke this morning with her RT knee swelling. She states that it looks like a big ball. She has had this before and wondering what she should do for it. documented in this encounter Plan of Treatment Not on file documented as of this encounter Visit Diagnoses Not on filedocumented in this encounter Care Teams Review Engineer Relationship Specialty Start Date End Date Ayden Angulo MD PCP - General 07/28/19 01/28/23 documented as of this encounter
--- OUTSIDE RECORDS SUMMARY | 2024-06-16 00:27 | XMS_ITS | Encounter Summary ---
Author Organization [facility] Address [address] [place] [address] Care Team Providers Care Underwriting Technician Name Role Phone Ayden Angulo MD Primary Care Provider Unava ilable Reason for Visit * Reason Onset Date Comments Medication Management 12/18/2019 New prescr iption Encounter Details Date Type Department Care Team (Late st Contact Info) Description 12/18/2019 Telephone [facility] [place] [facility] [address] [facility], [address] [place] [address] Ayden Angulo MD Medication Management (New prescription ) Social History Tobacco Use Types Packs/Day [...] Telephone Encounter - Preston Steward RN - 12/18/2019 1317 EDT medlist updated. Called pharmacy and cancelled the script and removed to her file, * Telephone Encounter - Ayden Angulo MD - 12/18/2019 1153 EDT No. Do not prescribe clonazepam. Take off med list. * Telephone Encounter - Janie Melo, BARNEY - 12/18/2019 1051 EDT To TC * Telephone Encounter - Bekah Smith - 12/18/2019 1043 EDT [facility] called, states patient was prescribed Clonazepam on 12/15/19. Pharmacist explained that patient is already taking Lorazepam and is wondering if new prescription is replacing that, or what the instructions are for patient. documented in this encounter Plan of Treatment Not on file documented as of this encounter Visit Diagnoses Not on filedocumented in this encounter Care Teams Underwriting Technician Relationship Specialty Start Date End Date Ayden Angulo MD PCP - General 07/28/19 01/28/23 documented as of this encounter
--- OUTSIDE RECORDS SUMMARY | 2024-06-16 00:27 | XMS_ITS | Encounter Summary ---
Author Organization [facility] Address [address] [place] [address] Care Team Providers Care Facilities Specialist Name Role Phone Ayden Angulo MD Primary Care Provider Unava ilable Reason for Visit * Reason Comments Follow-up Encounter Details Date Type Department Care Team (Late st Contact Info) Description 01/19/2020 14:00 EDT Telemedicine [facility] Adult Primary Care - [address] [address] Cht Behavioral Health, [facility] Adult Chronic post-traumatic stress disorder (PTSD) (Primary [...] encounter Progress Notes * Ministerio Shields - 01/19/2020 1400 EDT [facility] Outpatient Behavioral Health Progress Note Date of Service: 01/19/2020 Primary Care Provider: Ayden Angulo Present Patient [...] scheduled telephone session, initial setting of therapeutic container, led to Allie sharing positive changes she has made in her eating habits/nutrition since her first meeting with Jennifer Bryant, as well as her work to return to hiking/walking and setting a schedulefor herself with her sons' schooling. Discussion about her external motivation often coming from her partner and ideas were explored around creating more of an internal voice for herself, including phrasing as well as a behavioral plan to use a calendar with daily goals/rewards for herself. Objective: Appearance: could not discern via telephone Behavior: Appropriate Thought Process: Coherent Thought Content: Appropriate Risk: No suicidal, homicidal or violent ideations, No plan and No intent Speech: Normal Mood: Anxious Affect: Broad Judgement: Good Insight: Appropriate Cognition: Normal Assessment: Allie moves to another level of working on her health and trauma recovery work as seen by her recent changes as stated above. Treatment Goals: Continue to strengthen and increase healthy self-care and coping skills around trauma responses/depression and anxiety symptoms; continue to increase positive self-regard. Patient Active Problem List Diagnosis Date Noted ??? Carpal tunnel syndrome of right wrist 09/05/2019 Priority: Medium ??? Depression with anxiety 09/05/2019 Priority: Medium ??? Hypoglycemia 09/05/2019 Priority: Medium ??? Impaired glucose tolerance 09/05/2019 Priority: Medium ??? Irritable bowel syndrome 09/05/2019 Priority: Medium ??? Kidney stone 09/05/2019 Priority: Medium ??? Morbid obesity (HCC-CMS) 09/05/2019 Priority: Medium ??? Needle phobia 09/05/2019 Priority: Medium ??? Otalgia 09/05/2019 Priority: Medium ??? Panic attack 09/05/2019 Priority: Medium ??? Tobacco dependence syndrome 09/05/2019 Priority: Medium ??? Connective tissue disease overlap syndrome (HCC-CMS) 09/05/2019 Priority: Medium ??? CVA (cerebral vascular accident) ([facility]) 08/11/2019 Priority: Medium ??? Current moderate episode of major depressive disorder without prior episode ([facility]) 08/04/2019 Priority: Medium Treatment: Trauma/ARC recovery work; expressive arts/body based cognitive behavioral work. Plan: Allie will set up a structure/calendar to start practicing intrinsic motivation and will be prepared for her next scheduled session. Duration of Session: 30 Minutes Follow up appointment: Visit date not found Electronically signed by MINISTERIO SHIELDS documented in this encounter Plan of Treatment Not on file documented as of this encounter Visit Diagnoses Diagnosis Chronic post-traumatic stress disorder (PTSD)- Primary documented in this encounter Care Teams Facilities Specialist Relationship Specialty Start Date End Date Ayden Angulo MD PCP - General 07/28/19 01/28/23 documented as of this encounter
--- OUTSIDE RECORDS SUMMARY | 2024-06-16 00:27 | XMS_ITS | Encounter Summary ---
Author Organization [facility] Address [address] [place] [address] Care Team Providers Care Packing And Stamping Machine Operator Name Role Phone Ayden Angulo MD Primary Care Provider Unava ilable Reason for Referral * Laboratory Services (Routine) - New Request Specialty Diagnoses / Procedures Referred By Contannelise t Referred To Contact Diagnoses Spontaneous ecchymoses Procedures FERRITIN Lily Murguia PA-C [address] [facility] [address] [place] [address] Referral ID Status Reason Start Date Expiration Date V isits Requested Visits Authorized [id number] New Request 04/19/2020 1 1 Reason for Visit * Reason Onset Date Comments Labs Only 04/19/2020 Encounter Details Date Type Department Care Team (Late st Contact Info) Description 04/19/2020 Telephone [facility] [place] [address], [address] [place] [address] Lily Murguia PA-C [address] [facility] [address] [place] [address] Labs Only Social History Tobacco Use Types [...] Encounter - Preston Steward RN - 05/02/2020 1449 EDT Patient made aware of the lab result. TC has reviewed them. Advised to limit nsaids, patient is aware. Has telemed with TC on 05/06 will discuss other issues. * Telephone Encounter - Preston Steward RN - 04/29/2020 0954 EDT To TC we got the lab results scanned on patient file. Labs seems normal. Patient still bruises easily but as per patient its only on her stomach and legs, like she bumps her arms but she does not have any issues. How you want to proceed? Also patient mentioned about Mri/ imaging on her right knee. She stated that you discuss this with her long time ago but she did not want to proceed as she was scared to do it, however patient is ready to go forward, she has upcoming MRI at [facility] on 05/20 wondering If we can order this so she can do2 imaging same day as th other one. * Telephone Encounter - Preston Steward RN - 04/22/2020 1117 EDT This lab was ordered by [place] on a telephone encounter d/t excessive bruising 04/11. Patient went to [facility] for blood draw. See JG note. awating for the lab result. To front can we get the lab result then back to nursing. To nursing: once we get the lab result. Call patient to check on how is She doing. * Telephone Encounter - Ayden Angulo MD - 04/19/2020 1700 EDT I think this was ordered by [facility] Not us.... * Telephone Encounter - Daylin Guy RN - 04/19/2020 1530 EDT Noted, was drawn today so still waiting for results. * Telephone Encounter - Lily Murguia PA-C - 04/19/2020 1528 EDT Most important is f'up CBC given her persistent thrombocytosis and then consider referral to Heme as she is symptomatic. * Telephone Encounter - Daylin Guy RN - 04/19/2020 1506 EDT Forwarding to as he is PCP. At this point, they were unable to draw the platelet function assay because they said it was not specific enough. They also called back and did not draw the ferritin. I don't know much about this patient. Would she be able to come to [facility] to have the assay and ferritin done, or would that be too troublesome? * Telephone Encounter - Lou Cheng - 04/19/2020 1451 EDT Allie from [facility] called to report they were unable to draw the ferritin * Telephone Encounter - Jasmin Cerna - 04/19/2020 1219 EDT Faxed on 04/19 @ 12:20. * Telephone Encounter - Daylin Guy RN - 04/19/2020 1209 EDT Given to Jasmin gaffney. * Telephone Encounter - Daylin Guy RN - 04/19/2020 1145 EDT Nolan at [facility] notified. Ordered ferritin. Given to front to fax [phone]. FYI toJG- they are not running the assay unless they obtain more specifics. * Telephone Encounter - Daylin Guy RN - 04/19/2020 1127 EDT Allie from [facility] called. She said they cannot order a 'platelet function assay/analysis. While Lily and Nathalie were looking into patient's chart our call disconnected. Lily would specifically like to cancel that test, and run a ferritin, protime, and CBC. documented in this encounter Plan of Treatment Scheduled Orders Name Type Priority Associated Diagnoses Orde r Schedule FERRITIN Lab Routine Spontaneous ecchymoses Ordered: 04/19/2020 documented as of this encounter Visit Diagnoses Diagnosis Spontaneous ecchymoses- Primary documented in this encounter Care Teams Packing And Stamping Machine Operator Relationship Specialty Start Date End Date Ayden Angulo MD PCP - General 07/28/19 01/28/23 documented as of this encounter
--- OUTSIDE RECORDS SUMMARY | 2024-06-16 00:27 | XMS_ITS | Encounter Summary ---
Author Organization [facility] Address [address] [place] [address] Care Team Providers Care Apartment Maintenance Manager Name Role Phone Ayden Angulo MD Primary Care Provider Unava ilable Reason for Visit * Reason Comments Eye Pain Encounter Details Date Type Department Care Team (Late st Contact Info) Description 01/23/2020 16:30 EDT Telemedicine [facility] Family Medicine [facility] [address], [address] [place] [address] Ayden Angulo MD Eye pain, right (Primary Dx) Social History Tobacco Use Types [...] Progress Notes * Ayden Angulo MD - 01/23/2020 1630 EDT [facility] Video Visit Today's visit was provided through telemedicine video conferencing: The location of the patient: Home The location of the provider: Home office Verbal consent: The concept of ???Telemedicine?? has [...] Complaint(s): No chief complaint on file. HPI: Two days of acute eye pain and blurry vision. NO trauma, no h/o migraine headaches. It actually hurts to move her eyes in all directions. Some light sensitivity. With this. Would be afraid to drive as vision is so off. I have reviewed patient's tobacco history: reports that she has been smoking cigarettes. She has been smoking about 0.75 packs per day. She has never used smokeless tobacco. I have reviewed current problem list and current medications. ROS: ROS Has had migraines in past but says this is different. Has tried teabag, warm soaks to eye without benefit. No facial rash noted. Objective: Examination: Home Vitals: There were no vitals taken for this visit. Pertinent exam findings: has full eom, sclera is clear, hard to assess function of pupil. Face without rash. Data reviewed with patient: Reviewed and/or ordered active problem list, medication list tests Assessment & Plan: Diagnoses and all orders for this visit: Eye pain, right Comments: acute eye pain in a patient with a h/o rheumatological issues. Needs evaluation 15 min spent with patient The following individuals and their role did participate in today's encounter visit: Provider: Ayden Angulo MD Patient documented in this encounter Plan of Treatment Not on file documented as of this encounter Visit Diagnoses Diagnosis Eye pain, right- Primary documented in this encounter Discontinued Medications Medication Sig Discontinue Reason Start Date End Da te fluconazole (DIFLUCAN) 150 mg tablet Take 1 Tab by mouth once for 1 dose. May repeat once after 3 days if symptoms persist 11/29/2019 01/23/2020 FLUoxetine (PROZAC) 40 mg capsule 1 tab(s) orally once a day 07/16/2015 01/23/2020 nicotine polacrilex (COMMIT) 4 mg lozenge Let one lozenge dissolve in your mouth every hour as needed. Do not exceed 20 lozenges per day. 10/11/2019 01/23/2020 documented as of this encounter Historical Medications * This list may reflect changes made after this encounter. Medication Sig Dispensed Refills Start Date End Date LORazepam (ATIVAN) 1 mg tablet Take 12 tablet by mouth 2 times daily as needed for up to 30 days for Anxiety. Daily Max 1 mg 12/29/2019 03/20/2020 added in this encounter Care Teams Apartment Maintenance Manager Relationship Specialty Start Date End Date Ayden Angulo MD PCP - General 07/28/19 01/28/23 documented as of this encounter
--- OUTSIDE RECORDS SUMMARY | 2024-06-16 00:27 | XMS_ITS | Encounter Summary ---
Author Organization [facility] Address [address] [place] [address] Care Team Providers Care Specimen Accessioner Name Role Phone Ayden Angulo MD Primary Care Provider Unava ilable Reason for Visit * Reason Comments Follow-up Encounter Details Date Type Department Care Team (Late st Contact Info) Description 01/29/2020 14:00 EDT Telemedicine [facility] Family Medicine [facility] [address] [place] [address] [facility] Chronic post-traumatic stress disorder (PTSD) (Primary Dx) [...] encounter Progress Notes * Ministerio Shields - 01/29/2020 1400 EDT [facility] Progress Note Date of Service: 01/29/2020 Primary Care Provider: Ayden Angulo Present Patient HPI Subjective: (updates from last session) Allie presented as prepared for her telephone session, initial setting of therapeutic container ledAlice to update the telegraphic typewriter operator chief on her past week, which included an eye injury from the sun and a migraine, and her continued work to maintain nutrition and eating pattern changes. Focused exploration around her sense of being part of a team as a family, and her struggles to have her children and housemate support her and Enrique in household tasks, with focus on imagery/bodysense that she has used in the past to come to the center, not have polar extreme responses, I.e. Stuffing her emotion and hurting herself or getting very angry at others. Objective: Appearance: could not discern via telephone Behavior: Appropriate Thought Process: Coherent Thought Content: Appropriate Risk: No suicidal, homicidal or violent ideations, No plan and No intent Speech: Normal Mood: Anxious Affect: Broad Judgement: Good Insight: Appropriate Cognition: Normal Assessment: Allie continues to move through different medical issues with allow her to look at how she is taking care of herself, her body and soothing practices, as well as continue to look at her sense of selfin relationships and communication patterns. Treatment Goals: Strengthen and increase healthy coping and communication skills; decrease anxiety symptoms. Patient Active Problem List Diagnosis [...] stone 09/05/2019 Priority: Medium ??? Morbid obesity ([facility]) 09/05/2019 Priority: Medium ??? Needle phobia 09/05/2019 Priority: Medium ??? Otalgia 09/05/2019 Priority: Medium ??? Panic attack 09/05/2019 Priority: Medium ??? Tobacco dependence syndrome 09/05/2019 Priority: Medium ??? Connective tissue disease overlap syndrome ([facility]) 09/05/2019 Priority: Medium ??? CVA (cerebral vascular accident) ([facility]) 08/11/2019 Priority: Medium ??? Current moderate episode of major depressive disorder without prior episode ([facility]) 08/04/2019 Priority: Medium Treatment: Trauma/ARC recovery work; expressive arts/body based cognitive behaivoral work.2 Plan: Allie will practice with above ideas and be prepared for her next scheduled session.2 Duration of Session: 50 Minutes Follow up appointment: Visit date not found Electronically signed by MINISTERIO SHIELDS documented in this encounter Plan of Treatment Not on file documented as of this encounter Visit Diagnoses Diagnosis Chronic post-traumatic stress disorder (PTSD)- Primary documented in this encounter Care Teams Specimen Accessioner Relationship Specialty Start Date End Date Ayden Angulo MD PCP - General 07/28/19 01/28/23 documented as of this encounter
--- OUTSIDE RECORDS SUMMARY | 2024-06-16 00:27 | XMS_ITS | Encounter Summary ---
Author Organization [facility] Address [address] [place] [address] Care Team Providers Care Appraisal Specialist Name Role Phone Ayden Angulo MD Primary Care Provider Unava ilable Reason for Visit * Reason Onset Date Comments Appointment Related 12/19/2019 Encounter Details Date Type Department Care Team (Late st Contact Info) Description 12/19/2019 Telephone [facility] Primary [facility] - [place] [address] [place] [address] Sasha Shields [address] [facility] [address] [place], [place] [address] Appointment Related Social History Tobacco Use Types [...] * Telephone Encounter - Sasha Shields - 12/19/2019 8823 EDT Spoke w/pt about telephone sessions going forward, scheduled next session. documented in this encounter Plan of Treatment Not on file documented as of this encounter Visit Diagnoses Not on filedocumented in this encounter Care Teams Appraisal Specialist Relationship Specialty Start Date End Date Ayden Angulo MD PCP - General 07/28/19 01/28/23 documented as of this encounter
--- OUTSIDE RECORDS SUMMARY | 2024-06-16 00:27 | XMS_ITS | Encounter Summary ---
Author Organization [facility] Address [address] [place] [address] Care Team Providers Care Device Engineer Name Role Phone Ayden Angulo MD Primary Care Provider Unava ilable Reason for Visit * Reason Comments Other Encounter Details Date Type Department Care Team (Late st Contact Info) Description 03/01/2020 9:00 EDT Telemedicine [facility] Family Medicine [facility] [address], [address] [place] [address] Ayden Angulo MD Connective tissue disease overlap syndrome (HCC-CMS) (Primary Dx); Effusion of right knee Social History Tobacco Use [...] End Da te predniSONE (DELTASONE) 20 mg tabletIndications:Effusion of right knee Take 1 Tab by mouth daily for 7 days. 7 Tab 03/01/2020 03/08/2020 documented in this encounter Progress Notes * Ayden Angulo MD - 03/01/2020 0900 EDT [facility] Video Visit Today's visit was provided through [...] No chief complaint on file. HPI: Allie called 4 days ago with acute swelling of her right knee. All she had been doing was raking outside, not very exertional and she done the same job in the past without problems. She noticed that her knee ballooned up so she could barely flex or extend it. There was swelling behind the kneeas well. Her lower leg seemed more swollen like fluid. She has been taking diclofenac and resting it and icing it and the lower leg swelling has gone down and the knee is a little more mobile at this point she denies fever chills. No recent tick bite. No other joints involved. That red rash I had in the past is back as well at the same time. Patient had been on prednisone 2 weeks ago for an intractable migraine. The migraine went away and the medication was stopped. She is out of work because of this. She admits to tremendous frustration about recurrent rheumatological issues, feeling as if she is never got an answer as to what is going on. My knee swelled up and whole leg and the red. I have reviewed patient's tobacco history: reports that she has been smoking cigarettes. She has been smoking about 0.75 packs per day. She has never used smokeless tobacco. I have reviewed current problem list and current medications. ROS: ROS See HPI section Objective: Examination: Home Vitals: There were no vitals taken for this visit. Pertinent exam findings: appears well, mood and affect appropriate and Patient names the phone at her knee showing the diffuse swelling. I had her press her lower leg and there is no tenderness or edema today visible. There is no break in the skin and pressing around the knee itself is not tender. Data reviewed with patient: Reviewed and/or ordered active problem list, medication list, notes from last encounter tests Assessment & Plan: Diagnoses and all orders for this visit: Connective tissue disease overlap syndrome (HCC-CMS) Comments: patient ask for second opinion visit at rheumatology. Given her location will refer [place] [facility] Orders: - AMB CONS/FOLLOW UP RHEUMATOLOGY; Future Effusion of right knee Comments: Condition probably related to her underlying connective tissue disorder. Brief course of steroids once again indicated. Will ice it, stay off it, hold off fro Orders: - predniSONE (DELTASONE) 20 mg tablet; Take 1 Tab by mouth daily for 7 days. A total of 22 minutes was [...] Other specified diffuse disease of connective tissue Effusion of right knee Effusion of lower leg joint documented in this encounter Care Teams Device Engineer Relationship Specialty Start Date End Date Ayden Angulo MD PCP - General 07/28/19 01/28/23 documented as of this encounter
--- OUTSIDE RECORDS SUMMARY | 2024-06-16 00:27 | XMS_ITS | Encounter Summary ---
Author Organization [facility] Address [address] [place] [address] Care Team Providers Care High School Assistant Football Coach Name Role Phone Ayden Angulo MD Primary Care Provider Unava ilable Reason for Visit * Reason Onset Date Comments Medications Refill 04/01/2020 refill- HYDRO codone-acetaminophen OUT Encounter Details Date Type Department Care Team (Late st Contact Info) Description 04/01/[address] [facility] Family Medicine [facility] [address], [address] [place] [address] Ayden Angulo MD Medications Refill (refill- HYDROcodone-acetaminophe n OUT) Social History Tobacco Use Types Packs/Day Years [...] Pain. Daily Max: 4 Tabs 28 Tab 04/01/2020 04/24/2020 documented in this encounter Miscellaneous Notes * Telephone Encounter - Debbie Linda LPN - 04/01/2020 1401 EDT [facility] CONTROLLED MEDICATION REFILL Medication: hydrocodone Medication, dose, directions verified: yes Pharmacy verified: yes Last office visit: 03/07/2020 Next office visit: 04/05/2020 Prescription due to be filled: due Last urine drug screen: due at next OV Last VPMS: 04/01/2020 -Per VPMS, pt last filled medication on 02/19/2020 for 28d supply (#28 tabs) with no refills. Last CSA: due at next OV Plz send if recommended * Telephone Encounter - Salud Reynolds - 04/01/2020 1048 EDT Patient called stating that she needs a refill on her pain medication (HYDROcodone-acetaminophen). States she does not take this every day but is now out of it. Was stung by some bees and used the last of her medication. patient also had in person appt with TC scheduled for Thursday 04/05 that she has requested to do via zoom instead. [phone] documented in this encounter Plan of Treatment Not on file documented as of this encounter Visit Diagnoses Not on filedocumented in this encounter Care Teams High School Assistant Football Coach Relationship Specialty Start Date End Date Ayden Angulo MD PCP - General 07/28/19 01/28/23 documented as of this encounter
--- OUTSIDE RECORDS SUMMARY | 2024-06-16 00:27 | XMS_ITS | Encounter Summary ---
Author Organization [facility] Address [address] [place] [address] Care Team Providers Care Evp Chief Exploration Officer Name Role Phone Ayden Angulo MD Primary Care Provider Unava ilable Reason for Visit * Reason Onset Date Comments Appointment Related 10/26/2019 Encounter Details Date Type Department Care Team (Late st Contact Info) Description 10/26/2019 Telephone [facility] - [place] [address], [address] [place], [place] [id number] Sasha Shields [address] [place], [place] [id number] Appointment Related Social History Tobacco Use Types [...] * Telephone Encounter - Sasha Shields - 10/26/2019 4718 EST Lm for pt to call back re rescheduling. documented in this encounter Plan of Treatment Not on file documented as of this encounter Visit Diagnoses Not on filedocumented in this encounter Care Teams Evp Chief Exploration Officer Relationship Specialty Start Date End Date Ayden Angulo MD PCP - General 07/28/19 01/28/23 documented as of this encounter
--- OUTSIDE RECORDS SUMMARY | 2024-06-16 00:27 | XMS_ITS | Encounter Summary ---
Author Organization [facility] Address [address] [place] [address] Care Team Providers Care Litigation Support Analyst Name Role Phone Ayden Angulo MD Primary Care Provider Unava ilable Reason for Visit * Reason Comments Knee Pain Encounter Details Date Type Department Care Team (Late st Contact Info) Description 03/07/2020 14:30 EDT Telemedicine [facility] Family Medicine [facility] [address] [place] [address] Ayden Angulo MD Acute pain of right knee (Primary Dx); Effusion of right knee joint; Morbid obesity (HCC-CMS); Tobacco dependence syndrome Social History Tobacco Use [...] one 1mg tablet twice daily 42 Tab 03/07/2020 07/02/2020 HYDROcodone-acetaminophen (NORCO) 5-325 mg tablet Take 1-2 Tabs by mouth every 6 hours as needed for up to 10 days for Pain. Note- acute injury, needs early bridge script amount. Daily Max: 8 Tabs 40 Tab 03/07/2020 03/17/2020 documented in this encounter Progress Notes * Ayden Angulo MD - 03/07/2020 1430 EDT [facility] Video Visit Today's visit was provided through [...] or auxiliary staff: yes. Subjective: Chief Complaint(s): Knee Pain HPI: Allie is seen by video in follow-up. Her right knee pain and effusion is only slightly better.She says some of the swelling went down though she has sharp pain in her knee that seems to feel like it is on the right side extending down a little bit but also over the top of the kneecap. She haspain with any efforts to flex or extend it. Walking 200 feet to her sister's house she has to stop 5 times. She has been through her narcotic pain medication at an accelerated rate and asks for a bridge prescription between now and when she can see the orthopedist. She is not experiencing any otherorthopedic problems at this time other than a little stiffness in her ankles and fingers. She has been out of work for extended period of time and asks for an FMLA form. 2.. Is smoking 2 packs of cigarettes a day. Her sister was able to take Chantix and dropped her habit and this patient would like to try it. Warned and aware of common side effects with medication and what to do. I have reviewed patient's tobacco history: reports that she has been smoking cigarettes. She has been smoking about 0.75 packs per day. She has never used smokeless tobacco. I have reviewed current problem list and current medications. ROS: ROS Or redness spreading from this area. Denies trauma denies fever or chills Objective: Examination: Home Vitals: There were no vitals taken for this visit. Pertinent exam findings: Discouraged seeming. She will only flex or extend her knee a slight amount. Data reviewed with patient: Reviewed and/or ordered active problem list, medication list, notes from last encounter tests Assessment & Plan: Allie was seen today for knee pain. 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 Note- acute injury, needs early bridge script amount. Daily Max: 8 Tabs - varenicline (CHANTIX STARTING MONTH BOX) 0.5 mg (11)- 1 mg (42) tablet; Take one 0.5mg tablet once daily x 3 days then take one 0.5mg tablet twice daily x 4 days then take one 1mg tablet twice daily Will have patient try the Chantix and will see how far she gets. A total of 23 minutes was spent on this encounter on the day of this encounter. The following individuals and their role did participate in today's encounter visit: Provider: Ayden Angulo MD Patient documented in this encounter Plan of Treatment Not on file documented as of this encounter Visit Diagnoses Diagnosis Acute pain of right knee- Primary Effusion of right knee joint Effusion of lower leg joint Morbid obesity (HCC-CMS) Morbid obesity Tobacco dependence syndrome Tobacco use disorder documented in this encounter Discontinued Medications Medication Sig Discontinue Reason Start Date End Da te HYDROcodone-acetaminophe n (NORCO) 5-325 mg tablet Take 1-2 Tabs by mouth every 6 hours as needed for up to 28 days for Pain. Daily Max: 8 Tabs Reorder 02/19/2020 03/07/2020 documented as of this encounter Care Teams Litigation Support Analyst Relationship Specialty Start Date End Date Ayden Angulo MD PCP - General 07/28/19 01/28/23 documented as of this encounter
--- OUTSIDE RECORDS SUMMARY | 2024-06-16 00:27 | XMS_ITS | Encounter Summary ---
Author Organization [facility] Address [address] [place] [address] Care Team Providers Care Armored Car Driver Name Role Phone Ayden Angulo MD Primary Care Provider Unava ilable Reason for Visit * Reason Onset Date Comments Eye Pain 01/23/2020 Encounter Details Date Type Department Care Team (Late st Contact Info) Description 01/23/[address] [facility] Medicine [place] [address] [place] [address] Ayden Angulo MD Eye Pain Social History Tobacco Use Types Packs/Day [...] * Telephone Encounter - Lou Cheng - 01/24/2020 0818 EDT Referral printed and faxed to dr barr who is doing rocket engine component mechanic eye care. for their office to call the pt * Telephone Encounter - Ayden Angulo MD - 01/23/2020 1716 EDT Referral made at end of day. Needs eye appt. Set up on Wednesday- has acute right eye pain and blurry vision. documented in this encounter Plan of Treatment Not on file documented as of this encounter Visit Diagnoses Not on filedocumented in this encounter Care Teams Armored Car Driver Relationship Specialty Start Date End Date Ayden Angulo MD PCP - General 07/28/19 01/28/23 documented as of this encounter
--- OUTSIDE RECORDS SUMMARY | 2024-06-16 00:27 | XMS_ITS | Encounter Summary ---
Author Organization [facility] Address [address] [place] [address] Care Team Providers Care Analyst Business Analysis Name Role Phone Ayden Angulo MD Primary Care Provider Unava ilable Reason for Visit * Reason Comments Nutrition Counseling Weight Loss * Consult (Routine/Next Available) - Order Cancelled Specialty Diagnoses / Procedures Referred By Susanne martínez Referred To Contact Family Medicine Diagnoses Morbid obesity ([facility]) Ayden Angulo MD Cht Registered Dietitian, [facility] Family Referral ID Status Reason Start Date Expiration Date Visits Requested Visits Authorized [id number] Order Cancelled Specialty Services Required 01/05/2020 1 1 Encounter Details Date Type Department Care Team (Late st Contact Info) Description 01/12/2020 9:00 EDT Nutrition [address] [phone] Social History Tobacco Use Types Packs/Day [...] as of this encounter Progress Notes * Lucy Bryant RD CD - 01/12/2020 0900 EDT Visit today completed via Zoom. She reports having a stroke in July and she was encouraged to lose weight to improve her health. Boyfriend does majority of cooking. She reports later in conversation that prior to 2 years ago she was hiking daily and much healthier. Her mother and she essentially gave up on her own health. Lives with BF who does most of the cooking. Often grazing on snacks throughout the day and having a big dinner around 8pm and snacks after dinner (large whoopie pies are typical). She also drinks about 3 20oz bottles of mountain dew daily. In the past when she has cut this out she suffered from severe headaches. Enjoys fruits and vegetables. We discussed ideal foods for health (fruits, vegetables, whole grains and lean proteins) as well as portion sizes of starch, cheese and peanut butter. Discussed the caloric impact of her mountain dew and whoopie pies. Reviewed foods as functional and discussion around reducing intake of less nutritious choices. Plan below created together. Plan: -Decrease mountain dew to 1 bottle daily -Dinner earlier and plate from the stove -Add more variety to the dinner plate (veggies and fruits, cottage cheese) and reduce starch portions -aim for 3 meals/day -Reduce whoopie pie to 1/2 Follow up: via Zoom in 2 weeks documented in this encounter Plan of Treatment Not on file documented as of this encounter Visit Diagnoses Not on filedocumented in this encounter Care Teams Analyst Business Analysis Relationship Specialty Start Date End Date Ayden Angulo MD PCP - General 07/28/19 01/28/23 documented as of this encounter
--- OUTSIDE RECORDS SUMMARY | 2024-06-16 00:27 | XMS_ITS | Encounter Summary ---
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 30 Tab 2 02/22/2020 05/02/2020 documented in this encounter Progress Notes * Ayden Angulo MD - 02/22/2020 1600 EDT [facility] [place] Telephone Visit Verbal consent: The [...] or auxiliary staff: yes. Subjective: Chief Complaint(s): Depression HPI: I took that med and away they went-- no more headaches.. Worried about sun exposure.. Back to sleeping okay. My depression- has really kicked in, wants to sleep all the time. Every day.. I just cannot get up. I am not working Right now. Both.. Relationship-- okay.. The same family issue.tears over nothing.. Asks for a note for work. Just cannot go out to do it. Not suicidal. Just feeling slowed down, like it is physical. Memory poor again, like I cannot focusand see things and take them in. I have reviewed patient's tobacco history: reports that she has been smoking cigarettes. She has been smoking about 0.75 packs per day. She has never used smokeless tobacco. I have reviewed current problem list and current medications. ROS: ROS *no illicit substances Objective: Examination: Home Vitals: There were no vitals taken for this visit. Pertinent exam findings: speaking in full sentences and restricted comments. trying to be hopeful Data reviewed with patient: Reviewed and/or ordered active problem list, medication list tests Assessment & Plan: Allie was seen today for depression. Diagnoses and all orders for this visit: Depression with anxiety Comments: discussed switch from aggitated to the opposite type of depression. no display of filemon. will switch to buproprion, with slow taper off fluoxetine. HOld lorazep Persistent migraine aura without cerebral infarction and with status migrainosus, not intractable Other orders - buPROPion (WELLBUTRIN XL) 300 mg XL tablet; Take 1 Tab by mouth every morning. Patient initiated phone contact with the office: yes. Patient is an established patient (parent, guardian) yes. E/M provided within previous 7 days for same medical assessment: no Anticipate E/M service within 24hrs or next available urgent appointment no. This visit was conducted by telephone. A total of 25 minutes was spent on this encounter on the day of this encounter. 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 02/15/2020 02/22/2020 predniSONE (DELTASONE) 20 mg tablet 3 tabs/day x1week, then 2 tabs/day for 3 days, then 1 tab/day for 3 days then stop 02/15/2020 02/22/2020 FLUoxetine (PROZAC) 20 mg capsule Take 20 mg by mouth daily. Stop Taking at Discharge 02/22/2020 documented as of this encounter Historical Medications * This list may reflect changes made after this encounter. Medication Sig Dispensed Refills Start Date End Date FLUoxetine (PROZAC) 20 mg capsule Take 20 mg by mouth daily. 02/22/2020 added in this encounter Care Teams Security Systems Integrator Relationship Specialty Start Date End Date Ayden Angulo MD PCP - General 07/28/19 01/28/23 documented as of this encounter
--- OUTSIDE RECORDS SUMMARY | 2024-06-16 00:27 | XMS_ITS | Encounter Summary ---
Author Organization [facility] Address [address] [place] [address] Care Team Providers Care Metal Bonding Press Operator Name Role Phone Ayden Angulo MD Primary Care Provider Unava ilable Reason for Visit * Reason Onset Date Comments Medications Refill 04/30/2020 Encounter Details Date Type Department Care Team (Late st Contact Info) Description 04/30/2020 Refill [facility] Family Medicine [facility] [address] , [address] [place] [address] Ayden Angulo MD Medications Refill Social History [...] Refills Start Date End Da te aspirin chewable 81 mg tablet Take 1 Tab by mouth daily. 90 Tab 3 04/30/2020 12/10/2020 documented in this encounter Miscellaneous Notes * Telephone Encounter - Debbie Linda LPN - 04/30/2020 1203 EDT [facility] MEDICATION REFILL Medication: ASA 81mg Medication, dose, directions verified: yes Pharmacy verified: yes Last office visit: 04/05/2020 Next office visit: 05/06/2020 * Telephone Encounter - Maribel Lorenzo - 04/30/2020 1042 EDT Received a fax from the pharmacy requesting a refill for Chewable Aspirin 81mg. documented in this encounter Plan of Treatment Not on file documented as of this encounter Visit Diagnoses Not on filedocumented in this encounter Care Teams Metal Bonding Press Operator Relationship Specialty Start Date End Date Ayden Angulo MD PCP - General 07/28/19 01/28/23 documented as of this encounter
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
--- OUTSIDE RECORDS SUMMARY | 2024-06-16 00:27 | XMS_ITS | Encounter Summary ---
Author Organization [facility] Address [address] [place] [address] Care Team Providers Care Director Of Online Merchandising Name Role Phone Ayden Angulo MD Primary Care Provider Unava ilable Reason for Visit * Reason Onset Date Comments Medication Problem 04/18/2020 Concerns rega rding patient's Benzo use Encounter Details Date Type Department Care Team (Late st Contact Info) Description 04/18/2020 Telephone [facility] [place] [facility] [address] [place] [address] Ayden Angulo MD Medication Problem (Concerns regarding patient's Benzo use) Social History Tobacco Use Types Packs/Day Years [...] Telephone Encounter - Mitali Sena RN - 04/19/2020 2882 EDT Notified pt per TC note that Neurology at [facility] called us concerned about her spacing out episodes. They want her to NOT use the lorazepam for one to two weeks to see if this could be the cause. Pt verbalized understanding. * Telephone Encounter - Starr Bro - 04/19/2020 1402 EDT Patient called back. * Telephone Encounter - Preston Steward RN - 04/19/2020 1038 EDT A kid answered the phone. Please call the patient back * Telephone Encounter - Ayden Angulo MD - 04/19/2020 1005 EDT Call allie. Neurology at [facility] called us concerned about her spacing out episodes. They want her to NOT use the lorazepam for one to two weeks to see if this could be the cause. * Telephone Encounter - Preeti Roberto - 04/18/2020 1352 EDT Andria calling to report she has some concerns regarding patient's Benzo use. If TC would like to discuss she would be happy to talk further. documented in this encounter Plan of Treatment Not on file documented as of this encounter Visit Diagnoses Not on filedocumented in this encounter Care Teams Director Of Online Merchandising Relationship Specialty Start Date End Date Ayden Angulo MD PCP - General 07/28/19 01/28/23 documented as of this encounter
--- OUTSIDE RECORDS SUMMARY | 2024-06-16 00:27 | XMS_ITS | Encounter Summary ---
Author Organization [facility] Address [address] [place] [address] Care Team Providers Care Java J2Ee Lead Name Role Phone Ayden Angulo MD Primary Care Provider Unava ilable Reason for Visit * Reason Onset Date Comments Medications Refill 11/02/2019 Encounter Details Date Type Department Care Team (Late st Contact Info) Description 11/02/2019 Telephone [facility] Family Medicine [place] [address] , [address] [place] [address] Ayden Angulo MD Medications Refill Social History [...] Telephone Encounter - Janie Melo RN - 11/02/2019 1324 EST Pt advised * Telephone Encounter - Ayden Angulo MD - 11/02/2019 1228 EST I do not want to refill it. I need to see her. Keep the appt. * Telephone Encounter - Janie Melo, BARNEY - 11/02/2019 1138 EST Pt cancelled appt on 10/31, nov 11/23/19, PD gave her rx on 10/11 for # 20 * Telephone Encounter - Leandra Pike - 11/02/2019 1130 EST Patient called requesting a refill of her hydrocodone-acetaminophen; she was prescribed qty: 20 on 10/11/19 and would like a refill as soon as possible. Patient stated that she is pain and her knee is bothering her. Patient would like a call back to update her on status of request. documented in this encounter Plan of Treatment Not on file documented as of this encounter Visit Diagnoses Not on filedocumented in this encounter Care Teams Java J2Ee Lead Relationship Specialty Start Date End Date Ayden Angulo MD PCP - General 07/28/19 01/28/23 documented as of this encounter
--- OUTSIDE RECORDS SUMMARY | 2024-06-16 00:27 | XMS_ITS | Encounter Summary ---
Author Organization [facility] Address [address] [place] [address] Care Team Providers Care Professional Fee Coder Name Role Phone Ayden Angulo MD Primary Care Provider Unava ilable Reason for Visit * Reason Comments Migraine Encounter Details Date Type Department Care Team (Late st Contact Info) Description 02/15/2020 8:30 EDT Telemedicine [facility] Family Medicine [facility] [address], [address] [place] [address] Ayden Angulo MD Persistent migraine aura without cerebral infarction and with status migrainosus, not intractable (Primary Dx) Social History Tobacco Use Types [...] Da te predniSONE (DELTASONE) 20 mg tablet 3 tabs/day x1week, then 2 tabs/day for 3 days, then 1 tab/day for 3 days then stop 30 Tab 02/15/2020 02/22/2020 amitriptyline (ELAVIL) 25 mg tablet Take 1 Tab by mouth at bedtime for 120 days. 30 Tab 3 02/15/2020 02/22/2020 documented in this encounter Progress Notes * Ayden Angulo MD - 02/15/2020 0830 EDT [facility] [place] Verbal consent: The [...] Complaint(s): No chief complaint on file. HPI: Headaches are terrible. I press and it gets better, but if I move they come back. Vision is horrible. And noise is okay- makes it more intense, . They hurt so back. Sleep- like crap- if I get still and put pressure on it, comes right back.i Tried the fiorinal and it made her sick. No new neurological symptoms noted with this. Staying well hydrated. Eating her normal once a day. Denies nausea with it. No covid exposures to explain this or other symptoms. I have reviewed patient's tobacco history: reports that she has been smoking cigarettes. She has been smoking about 0.75 packs per day. She has never used smokeless tobacco. I have reviewed current problem list and current medications. ROS: ROS See hpi Objective: Examination: Home Vitals: There were no vitals taken for this visit. Pertinent exam findings: speaking in full sentences and mood and affect appropriate Data reviewed with patient: Reviewed and/or ordered active problem list, medication list, notes from last encounter tests Assessment & Plan: Diagnoses and all orders for this visit: Persistent migraine aura without cerebral infarction and with status migrainosus, not intractable Other orders - amitriptyline (ELAVIL) 25 mg tablet; Take 1 Tab by mouth at bedtime for 120 days. - predniSONE (DELTASONE) 20 mg tablet; 3 tabs/day x1week, then 2 tabs/day for 3 days, then 1 tab/day for 3 days then stop Patient initiated phone contact with the office: yes. Patient is an established patient (parent, guardian) yes. E/M provided within previous 7 days for same medical assessment: no Anticipate E/M service within 24hrs or next available urgent appointment no. This visit was conducted by telephone. A total of 15 minutes was spent on this encounter on the day of this encounter. documented in this encounter Plan of Treatment Not on file documented as of this encounter Visit Diagnoses Diagnosis Persistent migraine aura without cerebral infarction and with status migrainosus, not intractable- Primary Persistent migraine aura without cerebral infarction, without mention of intractable migraine with status migrainosus documented in this encounter Discontinued Medications Medication Sig Discontinue Reason Start Date End Da te oathosjgdh-skkbamf-euzyz ine (FIORINAL) capsule Take 2 Caps by mouth every 8 hours as needed for Pain. Daily Max: 6 Caps 02/01/2020 02/15/2020 documented as of this encounter Care Teams Professional Fee Coder Relationship Specialty Start Date End Date Ayden Angulo MD PCP - General 07/28/19 01/28/23 documented as of this encounter
--- OUTSIDE RECORDS SUMMARY | 2024-06-16 00:27 | XMS_ITS | Encounter Summary ---
Author Organization [facility] Address [address] [place] [address] Care Team Providers Care Hide Splitter Name Role Phone Ayden Angulo MD Primary Care Provider Unava ilable Reason for Visit * Reason Comments Migraine Encounter Details Date Type Department Care Team (Late st Contact Info) Description 01/25/2020 11:30 EDT Telemedicine [facility] Family Medicine [facility] [address] [place] [address] Ayden Angulo MD Status migrainosus (Primary Dx) Social History Tobacco Use Types [...] predniSONE (DELTASONE) 20 mg tablet Take 2 Tabs by mouth daily for 2 days. 4 Tab 01/28/2020 01/30/2020 documented in this encounter Progress Notes * Ayden Angulo MD - 01/25/2020 1130 EDT [facility] [place] Visit Verbal consent: The concept of [...] No chief complaint on file. HPI: I had a video visit with Allie earlier this week because of acute right eye pain. She was seen on an emergency basis by Dr. Canela and the diagnosis was made of acute migraine headache. In speaking with Allie today her pain persists and she wonders what to do about it. She denies things are worse interms of her vision though says she is in more pain because of all the stuff he had me do yesterday. She speaks about her family history which is that everyone has migraine headaches. They take Fiorinal a lot for it and she asks about this medication. She has some prednisone at home (6 pills 20 mg each) and can start this today. I have reviewed patient's tobacco history: reports that she has been smoking cigarettes. She has been smoking about 0.75 packs per day. She has never used smokeless tobacco. I have reviewed current problem list and current medications. ROS: ROS See HPI for full details reviewed possible triggers for migraines this did all began after a full day out in the bright sun Objective: Examination: Home Vitals: There were no vitals taken for this visit. Pertinent exam findings: speaking in full sentences and mood and affect appropriate Data reviewed with patient: Reviewed and/or ordered active problem list, medication list, notes from last encounter tests Assessment & Plan: Diagnoses and all orders for this visit: Status migrainosus Comments: I discussed with her migraine headaches. Will treat with prednisone starting with her supply at home to call if not resolved Other orders - predniSONE (DELTASONE) 20 mg tablet; Take 2 Tabs by mouth daily for 2 days. Patient initiated phone contact with the office: yes. Patient is an established patient (parent, guardian) yes. E/M provided within previous 7 days for same medical assessment: no Anticipate E/M service within 24hrs or next available urgent appointment no. This visit was conducted by telephone. A total of 15 minutes was spent on this encounter on the dayof this encounter. documented in this encounter Plan of Treatment Not on file documented as of this encounter Visit Diagnoses Diagnosis Status migrainosus- Primary Variants of migraine, not elsewhere classified, without mention of intractable migraine without mention of status migrainosus documented in this encounter Care Teams Hide Splitter Relationship Specialty Start Date End Date Ayden Angulo MD PCP - General 07/28/19 01/28/23 documented as of this encounter
--- OUTSIDE RECORDS SUMMARY | 2024-06-16 00:27 | XMS_ITS | Encounter Summary ---
Author Organization [facility] Address [address] [place] [address] Care Team Providers Care Training Associate Name Role Phone Ayden Angulo MD Primary Care Provider Unava ilable Reason for Visit * Reason Onset Date Comments Migraine 02/13/2020 Encounter Details Date Type Department Care Team (Late st Contact Info) Description 02/13/2020 Telephone [facility] Family Medicine [facility] [address], [address] [place] [address] Ayden Angulo MD Migraine Social History Tobacco Use Types Packs/Day Years [...] Notes * Telephone Encounter - Starr Bro - 02/13/2020 1033 EDT Patient called back. Appt scheduled for phone visit as patient does not have capabilities for televideo. * Telephone Encounter - Mitali Sena RN - 02/13/2020 1022 EDT LM for pt to call back * Telephone Encounter - Ayden Angulo MD - 02/13/2020 1002 EDT Video visit morning? Slots now open * Telephone Encounter - Mitali Sena RN - 02/13/2020 0941 EDT Pt reports dx of migraines. Pt having migraines in a pattern of 4 days on 2-3 days off with extremephotophobia and difficulty sleeping. Pt taking Fiorinal but it gives her v/d and stomach pain and no migraine relief. Pt also tried Excedrin Migraine with minimal relief. * Telephone Encounter - Lou Cheng - 02/13/2020 0850 EDT Pt has been under treatment for her migraines for the past month pt states her migraines are getting worse, she request to see TC about this but not want to wait until his next available opening as she said the pain is getting worse to where she cant go outside. documented in this encounter Plan of Treatment Not on file documented as of this encounter Visit Diagnoses Not on filedocumented in this encounter Care Teams Training Associate Relationship Specialty Start Date End Date Ayden Angulo MD PCP - General 07/28/19 01/28/23 documented as of this encounter
--- OUTSIDE RECORDS SUMMARY | 2024-06-16 00:27 | XMS_ITS | Encounter Summary ---
Author Organization [facility] Address [address] [place] [address] Care Team Providers Care Manufacturer'S Representative Name Role Phone Ayden Angulo MD Primary Care Provider Unava ilable Reason for Visit * Reason Comments Follow-up Encounter Details Date Type Department Care Team (Late st Contact Info) Description 01/22/2020 14:00 EDT Telemedicine [facility] Family Medicine [facility] [address] [place] [address] Cht Behavioral Health, [facility] Chronic post-traumatic stress disorder (PTSD) (Primary Dx) [...] encounter Progress Notes * Ministerio Shields - 01/22/2020 1400 EDT [facility] Outpatient Behavioral Health Progress Note Date of Service: 01/22/2020 Primary Care Provider: Ayden Angulo Present Patient [...] of therapeutic container, led to Allie sharing a health scare that made her question whether she was having another stroke. Exploration around anxiety responses, as well as check in around other health/nutrition and intrinsic motivation changes she is making, with Allie reporting continued positive changes. Objective: Appearance: could not discern via telephone Behavior: Appropriate Thought Process: Coherent Thought Content: Appropriate Risk: No suicidal, homicidal or violent ideations, No plan and No intent Speech: Normal Mood: Anxious Affect: Broad Judgement: Good Insight: Appropriate Cognition: Normal Assessment: Allie continues to use her therapy time to address anxiety symptoms as well as regulation practices, along with furthering her work to move to internal motivation to make changes to her health. Treatment Goals: Strengthen and increase healthy coping skills around anxiety/trauma responses/regulation; continue to strengthen and increase positive self-regard and intrinsic motivation. Patient Active Problem List Diagnosis Date Noted ??? Carpal tunnel syndrome of right wrist 09/05/2019 Priority: Medium ??? Depression with anxiety 09/05/2019 Priority: Medium ??? Hypoglycemia 09/05/2019 Priority: Medium ??? Impaired glucose tolerance 09/05/2019 Priority: Medium ??? Irritable bowel syndrome 09/05/2019 Priority: Medium ??? Kidney stone 09/05/2019 Priority: Medium ??? Morbid obesity ([facility]) 09/05/2019 Priority: Medium ??? Needle phobia 09/05/2019 Priority: Medium ??? Otalgia 09/05/2019 Priority: Medium ??? Panic attack 09/05/2019 Priority: Medium ??? Tobacco dependence syndrome 09/05/2019 Priority: Medium ??? 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 CVA (cerebral vascular accident) ([facility]) 08/11/2019 Priority: Medium ??? Current moderate episode of major depressive disorder without prior episode ([facility]) 08/04/2019 Priority: Medium Treatment: Trauma/ARC recovery work; expressive arts/body based cognitive behavioral work. Plan: Allie will continue with regulation practices as reviewed in session, including with imagery work she has done in the past, and be prepared for her next scheduled session. Duration of Session: 40 Minutes Follow up appointment: Visit date not found Electronically signed by MINISTERIO SHIELDS documented in this encounter Plan of Treatment Not on file documented as of this encounter Visit Diagnoses Diagnosis Chronic post-traumatic stress disorder (PTSD)- Primary documented in this encounter Care Teams Manufacturer'S Representative Relationship Specialty Start Date End Date Ayden Angulo MD PCP - General 07/28/19 01/28/23 documented as of this encounter
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
--- OUTSIDE RECORDS SUMMARY | 2024-06-16 00:27 | XMS_ITS | Encounter Summary ---
Author Organization [facility] Address [address] [place] [address] Care Team Providers Care Pr Specialist Name Role Phone Ayden Angulo MD Primary Care Provider Unava ilable Reason for Visit * Reason Onset Date Comments Medication Problem 12/29/2019 Encounter Details Date Type Department Care Team (Late st Contact Info) Description 12/29/2019 Telephone [facility] [place] [phone] [place] [address] Ayden Angulo MD Medication Problem Social History [...] Miscellaneous Notes * Telephone Encounter - Mitali Montoya LPN - 12/29/2019 2877 EDT Spoke to pharmacistBekah. She stated that there was 1 refill left on Lorazepam and that she would get that filled for her as soon as possible. Notified pt that pharmacy was refilling Lorazepam rx as she requested and should be ready either later today or tomorrow. She verbalized understanding. * Telephone Encounter - Lindy Champion - 12/29/2019 1441 EDT Technical Illustrations Map Inker called and spoke to the pharmacy, Last filled 11/23/2019 qty 60 for 30 days 0.5mg BID Prn max of 1mg * Telephone Encounter - Mitali Montoya LPN - 12/29/2019 1414 EDT Per TE from 12/17, TC advised that Clonazepam be taken off medication list and cancel Clonazepam rx at the pharmacy which was done by LINA. Spoke to pt and made her aware of this, she verbalized understanding. While on the phone she asked that Lorazepam 1 mg rx be refilled as she only has 7 tabs left. According to our records pt was last prescribed 0.5 mg tabs BID 60 tabs/30 days/1 refill on 11/22. Forwarding TE to CG, can you please call her pharmacy to see if pt has refills on Lorazepam, when it was last refilled, and dosage/sig? * Telephone Encounter - Starr Bro - 12/29/2019 1358 EDT Patient called stating that she takes Clonazepam 25 mg regularly and Lorazepam 1 mg PRN. She statesthat these were called in and the pharmacy stopped the Clonazepam since they told her they do the same things. One is extended release and the other is fast acting. She needs the Clonazepam called in. She got the Lorazepam last week. documented in this encounter Plan of Treatment Not on file documented as of this encounter Visit Diagnoses Not on filedocumented in this encounter Care Teams Pr Specialist Relationship Specialty Start Date End Date Ayden Angulo MD PCP - General 07/28/19 01/28/23 documented as of this encounter
--- OUTSIDE RECORDS SUMMARY | 2024-06-16 00:27 | XMS_ITS | Encounter Summary ---
Author Organization [facility] Address [address] [place] [address] Care Team Providers Care Project Inspector Name Role Phone Ayden Angulo MD Primary Care Provider Unava ilable Reason for Visit * Reason Onset Date Comments Medications Refill 04/29/2020 Encounter Details Date Type Department Care Team (Late st Contact Info) Description 04/29/2020 Refill [facility] Family Medicine [facility] [address] [place] [address] Ayden Angulo MD Medications Refill Social History [...] 1 Tab by mouth daily. 90 Tab 5 04/30/2020 07/21/2021 documented in this encounter Miscellaneous Notes * Telephone Encounter - Debbie Linda LPN - 04/29/2020 1358 EDT [facility] MEDICATION REFILL Medication: atorvastatin, ASA Medication, dose, directions verified: yes Pharmacy verified: yes Last office visit: 04/05/2020 Next office visit: 05/06/2020 Due for lipid profile * Telephone Encounter - Maribel Lorenzo - 04/29/2020 1346 EDT Received a fax from the pharmacy requesting a refill for Atorvastatin 40mg. Also requesting a refill for Aspirin chewable 81mg. documented in this encounter Plan of Treatment Not on file documented as of this encounter Visit Diagnoses Not on filedocumented in this encounter Discontinued Medications Medication Sig Discontinue Reason Start Date End Da te atorvastatin (LIPITOR) 40 mg tablet Take 40 mg by mouth. Reorder 08/12/2019 04/29/2020 documented as of this encounter Care Teams Project Inspector Relationship Specialty Start Date End Date Ayden Angulo MD PCP - General 07/28/19 01/28/23 documented as of this encounter
--- OUTSIDE RECORDS SUMMARY | 2024-06-16 00:27 | XMS_ITS | Encounter Summary ---
Author Organization [facility] Address [address] [place] [address] Care Team Providers Care Health Clinician Name Role Phone Ayden Angulo MD Primary Care Provider Unava ilable Reason for Visit * Reason Comments Follow-up Encounter Details Date Type Department Care Team (Late st Contact Info) Description 01/05/2020 13:00 EDT Telemedicine [facility] [place] [address] [place] [id number] Cht Behavioral Health, [facility] Adult Chronic post-traumatic stress disorder (PTSD) [...] encounter Progress Notes * Ministerio Shields - 01/05/2020 1300 EDT [facility] Outpatient Behavioral Health Progress Note Date of Service: 01/05/2020 Primary Care Provider: Ayden Angulo Present Patient HPI Subjective: (updates from last session) Allie presented on time for her scheduled session, indicating that she had a scheduled appointment with her PCP in 30 minutes because of an increase in her inflammation levels. Discussion about the connection to her trauma work/regulation practices, as well as nutrition and the potential to work with one of the T Dieticians. Allie will mention these to Dr. Angulo as other possibilities. Objective: Appearance: not able to discern via telephone Behavior: Appropriate Thought Process: Coherent Thought Content: Appropriate Risk: No suicidal, homicidal or violent ideations, No plan and No intent Speech: Normal Mood: Anxious Affect: Broad Judgement: Good Insight: Appropriate Cognition: Normal Assessment: Allie continues to struggle with her physical health issues, even as she moves forward with her mental/emotional health care. Treatment Goals: Continue to strengthen and increase body-mind connection and care; trauma recoverywork/skills. Patient Active Problem List Diagnosis Date Noted ??? Carpal tunnel syndrome of right wrist 09/05/2019 Priority: Medium ??? Depression with anxiety 09/05/2019 Priority: Medium ??? Hypoglycemia 09/05/2019 Priority: Medium ??? Impaired glucose tolerance 09/05/2019 Priority: Medium ??? Irritable bowel syndrome 09/05/2019 Priority: Medium ??? Kidney stone 09/05/2019 Priority: Medium ??? Morbid obesity ([facility]) 09/05/2019 Priority: Medium ??? Needle phobia 09/05/2019 Priority: Medium ??? Otalgia 09/05/2019 Priority: Medium ??? Panic attack 09/05/2019 Priority: Medium ??? Tobacco dependence syndrome 09/05/2019 Priority: Medium ??? Connective tissue disease overlap syndrome ([facility]) 09/05/2019 Priority: Medium ??? CVA (cerebral vascular accident) ([facility]) 08/11/2019 Priority: Medium ??? Current moderate episode of major depressive disorder without prior episode ([facility]) 08/04/2019 Priority: Medium Treatment: Community resources; cognitive behavioral. Plan: Allie will follow up with her PCP on above topics and be prepared for her next scheduled session. Duration of Session: 30 Minutes Follow up appointment: 01/19/2020 Electronically signed by MINISTERIO SHIELDS documented in this encounter Plan of Treatment Not on file documented as of this encounter Visit Diagnoses Diagnosis Chronic post-traumatic stress disorder (PTSD)- Primary documented in this encounter Care Teams Health Clinician Relationship Specialty Start Date End Date Ayden Angulo MD PCP - General 07/28/19 01/28/23 documented as of this encounter
--- OUTSIDE RECORDS SUMMARY | 2024-06-16 00:27 | XMS_ITS | Encounter Summary ---
Author Organization [facility] Address [address] [place] [address] Care Team Providers Care Premix Operator Concentrate Name Role Phone Ayden Angulo MD Primary Care Provider Unava ilable Reason for Visit * Reason Onset Date Comments Eye Pain 01/22/2020 Encounter Details Date Type Department Care Team (Late st Contact Info) Description 01/22/2020 Telephone [facility] - [address] [id number] Qian Barba MD [address] [place] [phone] Eye Pain Social History Tobacco Use Types [...] encounter Miscellaneous Notes * Telephone Encounter - Qian Barba MD - 01/22/2020 4673 EDT [facility] Primary Care On-call Note Patient calling in for eye pressure. She reports she developed pressure above both eyes last night,thought was the start of a sinus infection. Pain is now predominantly behind one eye. Feels like pressure and is constant, worse with movement of her eye. She also reports her vision is somewhat blurry. There is no eye redness. The skin around her eye is a little puffy but not red, attributes this to being up all night. No fevers, rhinorrhea or sore throat. I am concerned about a potential serious etiology like acute angle closure glaucoma or orbital cellulitis so recommended urgent evaluation.She has an eye doctor but thinks their office is closed and does not want to go to the ED. Since the clinic opens in less than an hour she will call back to see if she can be evaluation in the officethis morning. documented in this encounter Plan of Treatment Not on file documented as of this encounter Visit Diagnoses Not on filedocumented in this encounter Care Teams Premix Operator Concentrate Relationship Specialty Start Date End Date Ayden Angulo MD PCP - General 07/28/19 01/28/23 documented as of this encounter
--- OUTSIDE RECORDS SUMMARY | 2024-06-16 00:27 | XMS_ITS | Encounter Summary ---
Author Organization [facility] Address [address] [place] [address] Care Team Providers Care Manager Acquisition Name Role Phone Ayden Angulo MD Primary Care Provider Unava ilable Reason for Visit * Reason Onset Date Comments Migraine 02/01/2020 Encounter Details Date Type Department Care Team (Late st Contact Info) Description 02/01/2020 Telephone [facility] [place] [address] [place] [address] Ayden Angulo MD Migraine Social History Tobacco [...] Dispensed Refills Start Date End Da te znmyywherk-gwijyyx-vllhztk e (FIORINAL) capsule Take 2 Caps by mouth every 8 hours as needed for Pain. Daily Max: 6 Caps 12 Cap 02/01/2020 02/15/2020 documented in this encounter Miscellaneous Notes * Telephone Encounter - Preston Steward RN - 02/02/2020 1414 EDT Patient aware * Telephone Encounter - Preston Steward RN - 02/01/2020 1329 EDT Left message with somebody to give us a call back * Telephone Encounter - Ayden Angulo MD - 02/01/2020 1214 EDT Given her family history, will have her try fiorinal. My goal is that she take it this evening and try to sleep to see if this breaks the headache cycle. * Telephone Encounter - Preston Steward RN - 02/01/2020 1114 EDT To TC * Telephone Encounter - Preeti Roberto - 02/01/2020 0838 EDT Patient had tele med visit on 01/24 with TC for migraines. TC gave her Rx Prednisone to treat migraines. Patient reports migraines are continuing, Rx helped a little but they come right back. Patient reports sound is not a problem but light is, it irritates migraines. She's staying inside for this reason. Patient states pressure from migraines makes her RT eye feels like it could explode! Duration 1-2 weeks. Please advise. documented in this encounter Plan of Treatment Not on file documented as of this encounter Visit Diagnoses Not on filedocumented in this encounter Care Teams Manager Acquisition Relationship Specialty Start Date End Date Ayden Angulo MD PCP - General 07/28/19 01/28/23 documented as of this encounter
--- OUTSIDE RECORDS SUMMARY | 2024-06-16 00:27 | XMS_ITS | Encounter Summary ---
Author Organization [facility] Address [address] [place] [address] Care Team Providers Care Supervisor Housecleaner Name Role Phone Ayden Angulo MD Primary Care Provider Unadanilo ilable Encounter Details Date Type Department Care Team (Late st Contact Info) Description 12/18/2019 Orders Only [facility] Family Medicine [facility] [address] [place] [address] Preston Steward, BARNEY Social History Tobacco Use Types Packs/Day Years [...] as of this encounter Progress Notes * Preston Steward, RN - 12/18/2019 1314 EDT MEDLIST UPDATED. Tc ORDERED TO cancel clonazepam as patient os on ativan already documented in this encounter Plan of Treatment Not on file documented as of this encounter Visit Diagnoses Not on filedocumented in this encounter Discontinued Medications Medication Sig Discontinue Reason Start Date End Da te clonazePAM (KLONOPIN) 0.5 mg tablet Take 1 Tab by mouth 2 times daily. Daily Max: 1 mg Error 12/15/2019 12/18/2019 documented as of this encounter Care Teams Supervisor Housecleaner Relationship Specialty Start Date End Date Ayden Angulo MD PCP - General 07/28/19 01/28/23 documented as of this encounter
--- OUTSIDE RECORDS SUMMARY | 2024-06-16 00:27 | XMS_ITS | Encounter Summary ---
Author Organization [facility] Address [address] [place] [address] Care Team Providers Care Veterinary Technologist Name Role Phone Ayden Angulo MD Primary Care Provider Unava ilable Reason for Visit * Reason Onset Date Comments Appointment Related 04/02/2020 Needs Zoom I nvite Resent Encounter Details Date Type Department Care Team (Late st Contact Info) Description 04/02/2020 Telephone [facility] [place] - [address] [address] Ayden Angulo MD Appointment Related (Needs Zoom Invite Resent) Social History Tobacco Use Types Packs/Day Years [...] encounter Miscellaneous Notes * Telephone Encounter - Tawnya Cook - 04/02/2020 1058 EDT Allie called and she did not get the Zoom passwords. Can you resent the invite on this. Her Email [email or web address] documented in this encounter Plan of Treatment Not on file documented as of this encounter Visit Diagnoses Not on filedocumented in this encounter Care Teams Veterinary Technologist Relationship Specialty Start Date End Date Ayden Angulo MD PCP - General 07/28/19 01/28/23 documented as of this encounter
--- OUTSIDE RECORDS SUMMARY | 2024-06-16 00:27 | XMS_ITS | Encounter Summary ---
Author Organization [facility] Address [address] [place] [address] Care Team Providers Care County Historian Name Role Phone Ayden Angulo MD Primary Care Provider Unava ilable Reason for Visit * Reason Onset Date Comments Bleeding/Bruising 04/11/2020 Encounter Details Date Type Department Care Team (Late st Contact Info) Description 04/11/2020 Telephone [facility] Family Medicine [facility] [address] , [address] [place] [address] Ayden Angulo MD Bleeding/Bruising Social History Tobacco Use Types Packs/Day Years [...] * Telephone Encounter - Preeti Roberto - 04/11/2020 1406 EDT Patient called back, I informed her to call before going in to have labs drawn to confirm they havebeen received. She agreed. * Telephone Encounter - Mitali Sena RN - 04/11/2020 1126 EDT Pt notified. Pt requested that the lab orders be sent to [facility]. Spoke to Caitlin Kelley [facility], to get fax number. She advised the pt call ahead to make sure fax was received. FAX [phone] # for pt to call [phone] Labs printed and ready to be faxed, in POD 3 box. LM for pt to call back. Need to inform her to call ahead to make sure lab received the fax. [phone] * Telephone Encounter - Lily Murguia PA-C - 04/11/2020 1115 EDT Signed orders for lab. Yes, can restart diclofenac for now. * Telephone Encounter - Mitali Sena RN - 04/11/2020 0966 EDT See televisit from 04/05/20. Pt stopped the diclofenac but bruising has not improved. Yesterday pt nicked herself shaving and got a big black and blue, she also pressed on her belly to look at her bellybutton and now has a blackand blue. Pt denies any bleeding. TC note states pt is to stop diclofenac and if still bruising in a week, then do blood work. Pt wondering what labs she needs drawn and if she can restart the diclofenac that had been helping with her swollen knee. * Telephone Encounter - Deloris Rod - 04/11/2020 0958 EDT Pt states that she stopped taking one of her medicatons at TC's request. She is still bruising veryeasy. Pt thinks that TC was going to order labs if she continued to bruise easily. Please advise. documented in this encounter Plan of Treatment Scheduled Orders Name Type Priority Associated Diagnoses Orde r Schedule PROTIME Lab Routine Spontaneous ecchymoses Ordered: 04/11/2020 documented as of this encounter Visit Diagnoses Diagnosis Spontaneous ecchymoses- Primary documented in this encounter Care Teams County Historian Relationship Specialty Start Date End Date Ayden Angulo MD PCP - General 07/28/19 01/28/23 documented as of this encounter
--- OUTSIDE RECORDS SUMMARY | 2024-06-16 00:27 | XMS_ITS | Encounter Summary ---
Author Organization [facility] Address [address] [place] [address] Care Team Providers Care Sludge Control Operator Name Role Phone Ayden Angulo MD Primary Care Provider Unava ilable Reason for Visit * Reason Onset Date Comments Appointment Related 04/05/2020 Encounter Details Date Type Department Care Team ([facility] st Contact Info) Description 04/05/[address] [facility] Adult Primary Care - [place] [address] [place] [address] Sasha Shields [address] [place], [place] [id number] Appointment Related Social History Tobacco Use Types [...] * Telephone Encounter - Sasha Shields - 04/05/2020 0903 EDT Call to pt to reschedule video session April 12 @ 11:00. documented in this encounter Plan of Treatment Not on file documented as of this encounter Visit Diagnoses Not on filedocumented in this encounter Care Teams Sludge Control Operator Relationship Specialty Start Date End Date Ayden Angulo MD PCP - General 07/28/19 01/28/23 documented as of this encounter
--- OUTSIDE RECORDS SUMMARY | 2024-06-16 00:27 | XMS_ITS | Encounter Summary ---
Author Organization [facility] Address [address] [place] [address] Care Team Providers Care Ore Mixer Name Role Phone Ayden Angulo MD Primary Care Provider Unava ilable Reason for Visit * Reason Onset Date Comments Medications Refill 11/16/2019 Encounter Details Date Type Department Care Team (Late st Contact Info) Description 11/16/2019 Refill [facility] Family Medicine [facility] [address] , [address] [place] [address] Ayden Angulo MD Medications Refill Social History [...] BY MOUTH TWICE DAILY 60 Tab 2 11/16/2019 02/15/2020 documented in this encounter Miscellaneous Notes * Telephone Encounter - Maribel Lorenzo - 11/16/2019 0924 EST CV MEDICATION REFILL Medication: Diclofenac Medication, dose, directions verified: Done Pharmacy verified: Done Last office visit: 10/31/19 Next office visit: 11/23/19 Other notes: To TC according to ECW this was last filled on 04/20/19 30 day supply with 2 refills. documented in this encounter Plan of Treatment Not on file documented as of this encounter Visit Diagnoses Not on filedocumented in this encounter Discontinued Medications Medication Sig Discontinue Reason Start Date End Da te diclofenac (VOLTAREN) 75 mg EC tablet TAKE ONE TABLET BY MOUTH TWICE DAILY 10/18/2019 11/16/2019 documented as of this encounter Care Teams Ore Mixer Relationship Specialty Start Date End Date Ayden Angulo MD PCP - General 07/28/19 01/28/23 documented as of this encounter
--- OUTSIDE RECORDS SUMMARY | 2024-06-16 00:27 | XMS_ITS | Encounter Summary ---
Author Organization [facility] Address [address] [place] [address] Care Team Providers Care Giving Officer Name Role Phone Ayden Angulo MD Primary Care Provider Unava ilable Reason for Visit * Reason Onset Date Comments Automatic Beam Warper Tender Message 12/12/2019 Encounter Details Date Type Department Care Team (Late st Contact Info) Description 12/12/2019 Telephone [facility] Family Medicine - [address], [address] [place] [address] Ayden Angulo MD Automatic Beam Warper Tender Message Social History Tobacco Use Types Packs/Day [...] Telephone Encounter - Ayden Angulo MD - 12/12/2019 1006 EDT Called last night. Has a sore throat. Can talk, swallow okay. Anxious a bout CV- she has no fever, cough, sob and is self isolating. Reassurance given. To call if persists for advice documented in this encounter Plan of Treatment Not on file documented as of this encounter Visit Diagnoses Not on filedocumented in this encounter Care Teams Giving Officer Relationship Specialty Start Date End Date Ayden Angulo MD PCP - General 07/28/19 01/28/23 documented as of this encounter
--- OUTSIDE RECORDS SUMMARY | 2024-06-16 00:27 | XMS_ITS | Encounter Summary ---
Author Organization [facility] Address [address] [place] [address] Care Team Providers Care Buffet Server Name Role Phone Ayden Angulo MD Primary Care Provider Unava ilable Reason for Visit * Reason Onset Date Comments Appointment Related 11/02/2019 Encounter Details Date Type Department Care Team (Late st Contact Info) Description 11/02/2019 Telephone [facility] - [place] [address], [address] [place], [place] [id number] Sasha Shields [address] [place], [place] [id number] Appointment Related Social History Tobacco Use Types [...] * Telephone Encounter - Sasha Shields - 11/02/2019 8366 EST Spoke w/pt regarding her new work schedule and capacity to attend counseling appts; Allie indicatedthat she is 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 Discussion about her communication skills and ideas for addressing this with her tank shop supervisor. Next scheduled session: 11/10/2019 @Christofer @1:00. documented in this encounter Plan of Treatment Not on file documented as of this encounter Visit Diagnoses Not on filedocumented in this encounter Care Teams Buffet Server Relationship Specialty Start Date End Date Ayden Angulo MD PCP - General 07/28/19 01/28/23 documented as of this encounter
--- OUTSIDE RECORDS SUMMARY | 2024-06-16 00:27 | XMS_ITS | Encounter Summary ---
Author Organization [facility] Address [address] [place] [address] Care Team Providers Care Investment Strategist Name Role Phone Ayden Angulo MD Primary Care Provider Unava ilable Reason for Visit * Reason Onset Date Comments Medications Refill 12/15/2019 refills Encounter Details Date Type Department Care Team (Late st Contact Info) Description 12/15/2019 Refill [facility] Family Medicine [facility] [address] [place] [address] Ayden Angulo MD Medications Refill (refills) Social History Tobacco Use Types Packs/Day Years [...] Dispensed Refills Start Date End Da te clonazePAM (KLONOPIN) 0.5 mg tablet Take 1 Tab by mouth 2 times daily. Daily Max: 1 mg 60 Tab 12/15/2019 12/18/2019 HYDROcodone-acetaminophen (NORCO) 5-325 mg tablet Take 1 Tab by mouth every 6 hours as needed for up to 10 days for Pain. Daily Max: 2 Tabs 20 Tab 12/15/2019 12/25/2019 documented in this encounter Miscellaneous Notes * Telephone Encounter - Debbie Linda LPN - 12/15/2019 1541 EDT [facility] CONTROLLED MEDICATION REFILL Medication: Clonazepam, hydrocodone Medication, dose, directions verified: yes Pharmacy verified: yes Last office visit: 11/23/2019 Next office visit: none Prescription due to be filled: Due Hydrocodone last filled 11/22/3029 for 10d supply Clonazepam lart filled 10/19/2019 for 30d supply Last urine drug screen: None on file Last VPMS: 12/15/2019 Last CSA: None on file Orders pended as most recently filled. Pt will be due for UDS and CSA at next OV * Telephone Encounter - Starr Bro - 12/15/2019 1531 EDT Patient called back checking on the status stating that she is all out. * Telephone Encounter - Deloris Rod - 12/15/2019 0907 EDT Medication refills needed: Clonazepam - pt is out Hydrocodone with tylenol (pt is not out but would like to sampler pickup refills at the same time). Pharmacy: [facility] in [place], [place] documented in this encounter Plan of Treatment Not on file documented as of this encounter Visit Diagnoses Not on filedocumented in this encounter Discontinued Medications Medication Sig Discontinue Reason Start Date End Da te HYDROcodone-acetaminophe n (NORCO) 5-325 mg tablet Take 1 Tab by mouth every 6 hours as needed for Pain. Daily Max: 2 Tabs Reorder 11/23/2019 12/15/2019 clonazePAM (KLONOPIN) 0.5 mg tablet Take 1 Tab by mouth 2 times daily. Daily Max: 1 mg Reorder 10/19/2019 12/15/2019 documented as of this encounter Care Teams Investment Strategist Relationship Specialty Start Date End Date Ayden Angulo MD PCP - General 07/28/19 01/28/23 documented as of this encounter
--- OUTSIDE RECORDS SUMMARY | 2024-06-16 00:27 | XMS_ITS | Encounter Summary ---
Author Organization [facility] Address [address] [place] [address] Care Team Providers Care Senior Database Administrator Name Role Phone Ayden Angulo MD Primary Care Provider Unava ilable Reason for Visit * Reason Onset Date Comments Appointment Related 10/19/2019 Encounter Details Date Type Department Care Team (Late st Contact Info) Description 10/19/2019 Telephone [facility] [place] - [place] [address], [address] [place], [place] [id number] Sasha Shields [address] [place], [place] [id number] Appointment Related Social History Tobacco Use Types [...] encounter Miscellaneous Notes * Telephone Encounter - Belkys Linton - 10/19/2019 0858 EST Patient called to cancel her appt tomorrow and possibly rescheduled for Wednesday next week. Because she is scheduled for BIM I am unable to cancel/reschedule. Patient would like to speak with you dalila. 4:00 Left message at home number as could not get through to cell. Will try again next week if no call back before from pt. documented in this encounter Plan of Treatment Not on file documented as of this encounter Visit Diagnoses Not on filedocumented in this encounter Care Teams Senior Database Administrator Relationship Specialty Start Date End Date Ayden Angulo MD PCP - General 07/28/19 01/28/23 documented as of this encounter
--- OUTSIDE RECORDS SUMMARY | 2024-06-16 00:27 | XMS_ITS | Encounter Summary ---
Author Organization [facility] Address [address] [place] [address] Care Team Providers Care Music Producer Name Role Phone Ayden Angulo MD Primary Care Provider Unava ilable Reason for Visit * Reason Comments Memory Loss Encounter Details Date Type Department Care Team (Latest Contact Info) Description 11/23/2019 13:00 EST Office Visit [facility] Family Medicine [facility] [address], [address] [place] [address] Ayden Angulo MD Cerebrovascular accident (CVA), unspecified mechanism (HCC-CMS) (Primary Dx); Depression with anxiety; Connective tissue disease overlap syndrome (HCC-CMS) Social [...] Sign Reading Time Taken Comments Blood Pressure 118/72 11/23/2019 1256 EST Pulse 80 11/23/2019 1256 EST Temperature - - Respiratory Rate 16 11/23/2019 1256 EST Oxygen Saturation - - Inhaled Oxygen Concentration - - Weight 121.1 kg (267 lb) 11/23/2019 1256 EST Height - - Body Mass Index 53.93 09/05/2019 1304 EST documented in this encounter Ordered Prescriptions Prescription Sig Dispensed Refills Start Date End Da te LORazepam (ATIVAN) 1 mg tablet Take 0.5 Tabs by mouth 2 times daily as needed for up to 30 days for Anxiety. Daily Max: 1 mg 60 Tab 1 11/23/2019 12/23/2019 HYDROcodone-acetaminophen (NORCO) 5-325 mg tablet Take 1 Tab by mouth every 6 hours as needed for Pain. Daily Max: 2 Tabs 20 Tab 11/23/2019 12/15/2019 documented in this encounter Progress Notes * Ayden Angulo MD - 11/23/2019 1300 EST [facility] Primary Care Subjective: Chief Complaint(s): Memory Loss HPI: Allie comes in today with numerous concerns. 1. Memory-is going to be 18 months before the getting into the neuropsychologist at [facility]. I dohave an appointment with the neurologist on the ninth in follow-up. Both she and her partner feels as if things are improving in terms of her memory with fewer mistakes made. She finds the sessions with the therapist here to be very helpful at causing her anger to quiet down and she feels more focused in situations. She is in the middle of a frustrating job however. Was hired for 3 days a week and then they demanded 7 days a week work. She asks for a note today to go back down to 3 days a week to lessen the stress. 2. 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 Reports a sharp electrical type pain that comes from her heels up her legs. She ends up going home and doing hot cold [id number] on the area. No previous problems with this area. 3. Rheumatology wanted to see me they sent me a note. I wonder how my inflammatory markers are. What is the ultimate reason why have all these problems I have reviewed patient's tobacco history: reports [...] mg by mouth., Disp: , Rfl: ??? clonazePAM (KLONOPIN) 0.5 mg tablet, Take 1 Tab by mouth 2 times daily. Daily Max: 1 mg, Disp: 60 Tab, Rfl: 0 ??? diclofenac (VOLTAREN) 75 mg EC tablet, TAKE ONE TABLET BY MOUTH TWICE DAILY , Disp: 60 Tab, Rfl: 2 ??? FLUoxetine (PROZAC) 40 mg capsule, 1 tab(s) orally once a day, Disp: , Rfl: ??? HYDROcodone-acetaminophen (NORCO) 5-325 mg tablet, Take 1 Tab by mouth every 6 hours as needed for Pain. Daily Max: 2 Tabs, Disp: 20 Tab, Rfl: 0 ??? LORazepam (ATIVAN) 1 mg tablet, Take 0.5 Tabs by mouth 2 times daily as needed for up to 30 days for Anxiety. Daily Max: 1 mg, Disp: 60 Tab, Rfl: 1 ??? nicotine polacrilex (COMMIT) 4 mg lozenge, Let one lozenge dissolve in your mouth every hour asneeded. Do not exceed 20 lozenges per day., Disp: 108 Lozenge, Rfl: 1 No past medical history on file. No [...] file Gets together: Not on file Attends christianity service: Not on file Active member of [...] and current medications. ROS: ROS See HPI section. Patient with no previous history of foot or ankle problems. No known trauma to the site. Wears tennis shoes at work. Objective: Examination: Vitals: BP 118/72 Pulse 80 Resp 16 Wt (!) 121.1 kg (267 lb) BMI 53.93 kg/m?? Body mass index is 53.93 kg/m??. Physical Exam General appearance: Good eye contact, is able to relate many small details of her life right now with accuracy. As always I do not laugh I am okay raises my memory. Counseling session around how to handle work stresses. I agree that given this period of recovery and note is indicated Heels no areas of tenderness though she lays had a tenderness it seems like it is in the lateral distribution of the Achilles she has good range of motion of Achilles no tenderness of it per se. Data reviewed with patient none Assessment & Plan: 1. Cerebrovascular accident (CVA), unspecified mechanism (HCC-CMS) Follow-up [facility]. 2. Depression with anxiety Continue with current medications. We will cut work back to 3 days a week. Rare use of lorazepam not to be combined with narcotics 3. Connective tissue disease overlap syndrome (HCC-CMS) AMB CONS/FOLLOW UP RHEUMATOLOGY Rheumatology referral made given lack of clarity of diagnosis. Deferred lab drawing to them Ayden Angulo MD documented in this encounter Plan of Treatment Not on file documented as of this encounter Visit Diagnoses Diagnosis Cerebrovascular accident (CVA), unspecified mechanism (HCC-CMS)- Primary Depression with anxiety Dysthymic disorder Connective tissue disease overlap syndrome (HCC-CMS) Other specified diffuse disease of connective tissue documented in this encounter Discontinued Medications Medication Sig Discontinue Reason Start Date End Da te HYDROcodone/acetaminophe n 5 - 325 mg 5-325 mg tablet Take by mouth every 6 hours. 0.5-1 tab for severe pain 11/23/2019 documented as of this encounter Care Teams Music Producer Relationship Specialty Start Date End Date Ayden Angulo MD PCP - General 07/28/19 01/28/23 documented as of this encounter
--- OUTSIDE RECORDS SUMMARY | 2024-06-16 00:28 | XMS_ITS | Encounter Summary ---
Author Organization [facility] Address [address] [place] [address] Care Team Providers Care Resident Service Coordinator Name Role Phone Guicho Monge MD Primary Care Provider [phone] Encounter Details Date Type Department Care Team (Late st Contact Info) Description 09/09/2018 Historical Results Only [facility] - Main [address] [address] Ayden Angulo MD Social History Tobacco Use Types Packs/Day Years Used Date Smoking Tobacco: Never Assessed Sex and Gender Information Value Date Recorded Sex Assigned at Not on file Gender Identity Female 08/04/2019 13:58 EST Sexual Orientation Not on file documented as of this encounter Plan of Treatment Not on file documented as of this encounter Procedures Procedure Name Priority Date/Time Associated Diagnosis Comments COMPLETE BLOOD COUNT WITH DIFFERENTIAL (AUTO) Routine 09/09/2018 16:16 EST THYROID CASCADE Routine 09/09/2018 16:16 EST LYME AB Routine 09/09/2018 16:16 EST ZZLYME IMMUNOBLOT CONFIRMATION Routine 09/09/2018 16:16 EST MONO-TEST Routine 09/09/2018 16:16 EST COMPREHENSIVE METABOLIC PANEL (CMP) Routine 09/09/2018 16:16 EST documented in this encounter Results * COMPREHENSIVE METABOLIC PANEL (CMP) (09/09/2018 16:16 [facility]) Albumin % 4.2 3.4 - 4.9 g/dL 09/09/2018 18:34 [facility] ALKALINE PHOSPHATASE - [facility] 92 38 - 126 U/L 09/09/2018 18:34 [facility] BILIRUBIN TOTAL 0.3 0.2 - 1.3 mg/dL 09/09/2018 18:34 [facility] BUN - [facility] 19 10 - 26 mg/dL 09/09/2018 18:34 [facility] CALCIUM - [facility] 9.3 8.5 - 10.5 mg/dL 09/09/2018 18:34 [facility] Chloride 102 96 - 110 mmol/L 09/09/2018 18:34 [facility] CO2 Total 25 22 - 32 mEq/L 09/09/2018 18:34 [facility] CREATININE 0.71 0.52 - 1.04 mg/dL 09/09/2018 18:34 [facility] eGFR >60 09/09/2018 18:34 [facility] Comment: Chronic renal impairment is defined as GFR <60 Multiply result by 1.210 for patients. eGFR calculated using the IDMS-traceable MDRD Study Equation. ??(effective 07/23/2014) Anion Gap 15 0 - 18 09/09/2018 18:34 [facility] GLUCOSE - [facility] 90 70 - 100 mg/dL 09/09/2018 18:34 [facility] Potassium 3.9 3.5 - 5.0 mEq/L 09/09/2018 18:34 [facility] Sodium 142 136 - 145 mEq/L 09/09/2018 18:34 [facility] TOTAL PROTEIN - [facility] 7.2 6.2 - 8.2 gm/dL 09/09/2018 18:34 [facility] SGOT/AST - [facility] 21 14 - 36 U/L 09/09/2018 18:34 [facility] SGPT/ALT - [facility] 35 9 - 52 U/L 8 18:34 [facility] 09/09/2018 16:1 6 EST 09/09/2018 17:52 EST Ayden Angulo MD CHEMISTRY & BLOOD GA S ORDERABLES Performing Organization Address [facility]/ZIP Co de Phone Number [facility] * THYROID CASCADE (09/09/2018 16:16 EST) TSH 1.66 0.46 - 4.68 uIU/mL 09/09/2018 19:06 [facility] 09/09/2018 16:1 6 EST 09/09/2018 17:52 EST Ayden Angulo MD CHEMISTRY & BLOOD GA S ORDERABLES Performing Organization Address [facility] Co de Phone Number [facility] * LYME AB (09/09/2018 16:16 EST) Pathologist [facility] [place] Ab IgG NEGATIVE 09/10/2018 11:04 [facility] Lyme Ab EQUIVOCAL 09/10/2018 11:04 [facility] Comment:Reflex to Western Bl ot has been ordered. 09/09/2018 16:1 6 EST 09/09/2018 17:52 EST Ayden Angulo MD IMMUNOLOGY AND SEROL OGY ORDERABLES Performing Organization Address [facility] Co de Phone Number [facility] * (ABNORMAL) COMPLETE BLOOD COUNT WITH DIFFERENTIAL (AUTO) (09/09/2018 16:16 EST) ABSOLUTE NEUTROPHIL COUN - [facility] 8.31(H) 1.7 - 7.0 10e3/ul 09/09/2018 18:58 [facility] BASO # - [facility] 0.03 0.0 - 0.3 10e3/uL 09/09/2018 18:58 [facility] BASO % - [facility] 0 0 - 2 % 09/09/2018 18:58 [facility] EOS # - [facility] 0.07 0.05 - 0.5 10e3/uL 09/09/2018 18:58 [facility] EOS % - [facility] 1 0 - 5 % 09/09/2018 18:58 [facility] GRAN % - [facility] 68 40 - 80 % 09/09/2018 18:58 [facility] HEMATOCRIT - [facility] 42.7 34.0 - 47.0 % 09/09/2018 18:58 [facility] HEMOGLOBIN - [facility] 14.1 11.2 - 15.7 g/dl 09/09/2018 18:58 [facility] IG# - [facility] 0.03 0 - 0.07 10e3/uL 09/09/2018 18:58 [facility] IG% - [facility] 0.2 0 - 0.9 % 09/09/2018 18:58 [facility] LYMPH # - CV 2.94(H) 0.9 - 2.9 10e3/uL 09/09/2018 18:58 [facility] LYMPH% - [facility] 24 20 - 40 % 09/09/2018 18:58 [facility] MEAN CORPUSCULAR HGB - [facility] 28.8 26 - 34 pg 09/09/2018 18:58 [facility] MEAN CORPUSCULAR HGB CONC - [facility] 33.0 31 - 36 g/dL 09/09/2018 18:58 [facility] MEAN CELL VOLUME - [facility] 87.3 77 - 100 fl 09/09/2018 18:58 [facility] MONO # - [facility] 0.79 0.3 - 0.9 10e3/uL 09/09/2018 18:58 [facility] MONO% - [facility] 7 0 - 12 % 09/09/2018 18:58 [facility] PLATELET COUNT 336 150 - 400 10e3/ul 09/09/2018 18:58 [facility] RED BLOOD COUNT - [facility] 4.89 3.8 - 5.2 10e6/ul 09/09/2018 18:58 [facility] RED CELL DISTRI WIDTH - [facility] 13.3 11.8 - 15.6 % 09/09/2018 18:58 [facility] WHITE BLOOD COUNT - [facility] 12.2(H) 3.5 - 10.5 10e3/ul 09/09/2018 18:58 EST [facility] 09/09/2018 16:1 6 EST 09/09/2018 17:52 EST Ayden Angulo MD HEMATOLOGY & PF4 ORD ERABLES [facility] * LYME IMMUNOBLOT CONFIRMATION (09/09/2018 16:16 EST) Lyme IGG Bands p41 () kDa 09/14/2018 15:09 [facility] Lyme IGM Band(s) SEE COMMENTS () kDa 2017 15:09 [facility] Comment:No bands detected. Lyme IgM ImmunoBlot Negative () 09/14/2018 15:09 [facility] Comment:Reference Range: Neg ative Lyme Immunoblot Interpretation SEE COMMENTS () 09/14/2018 15:09 [facility] Comment: Specific serologic response to B. burgdorferi infection is not detected. ??This may indicate lack of infection, lack of seroconversion or low/undetectable antibody levels to B. burgdorferi. ??If clinically indicated, a new serum specimen should be submitted in 7-14 days. ?? CDC criteria requires >=5 bands for IgG or >=2 bands for IgM for the Western blot to be considered postiive. ??Bands may be detected in patients without Lyme disease. Patterns not meeting CDC criteria should be interpreted with caution. ?? Per CDC guidelines, Western blot testing should only be performed on specimens that are positive or equivocal by Immunoassay. Performing only the Western blot increases the possibility of false positive results. Results should be considered positive only when both the immunoassay and the Western blot are positive. Test performed or referred by The [address] [address] [place] IGG ImmunoBlot Negative () 09/14/2018 15:09 [facility] Comment:Reference Range: Neg ative 09/09/2018 16:1 6 EST 09/09/2018 17:52 EST Ayden Angulo MD IMMUNOLOGY AND SEROL OGY ORDERABLES [facility] * MONO-TEST (09/09/2018 16:16 EST) [facility] - [facility] NEG NEG 8 18:45 EST [facility] 09/09/2018 16:1 6 EST 09/09/2018 17:52 EST Ayden Angulo MD CHEMISTRY & BLOOD GA S ORDERABLES Performing Organization Address City/[facility]/ZIP Co de Phone Number [facility] documented in this encounter Visit Diagnoses Not on filedocumented in this encounter Care Teams Resident Service Coordinator Relationship Specialty Start Date End Date Guicho Monge MD PCP - General 07/27/15 07/27/19 documented as of this encounter
--- OUTSIDE RECORDS SUMMARY | 2024-06-16 00:28 | XMS_ITS | Encounter Summary ---
Author Organization [facility] Address [address] [place] [address] Care Team Providers Care Tipple Worker Name Role Phone Ayden Angulo MD Primary Care Provider Heidy ildebi Encounter Details Date Type Department Care Team (Late st Contact Info) Description 10/04/2019 14:00 EST Community Health Team [facility] - [facility] Adult Primary Care - [address] [address] [facility], [facility] Adult Social History Tobacco Use Types [...] encounter Progress Notes * Ministerio Shields - 10/04/2019 1400 EST [facility] Outpatient [facility]al [facility] Progress Note Date of Service: 10/04/2019 Primary Care Provider: Ayden Angulo Present Patient HPI Subjective: (updates from last session) Allie presented on time for her scheduled session after a few weeks' break, updating the grant writer on changes to her memory and supports from her stroke, including a memory clinic referral. Discussion about her black outs after laughing/choking, forgetting to breathe and needing others to bring her back to the present. She states that she does not remember anything when she is present again, having a headache and needing to sleep. She reports having this happen sometimes 2x/day. Allie reports having new employment starting 10/05/2019; as well as her and her partner starting theprocess to move to a new home, out of the home which is the place of traumatic events for Allie. Review of her current supports, including tobacco cessation at [facility], OT, neurology, and her primary provider Dr. Angulo, and upcoming - the memory clinic. Review of neurobiology of trauma responses and freeze response, focused exploration around exercises she can continue to practice around regulation and traumatic memories. Objective: Appearance: Appropriate Behavior: Appropriate Thought Process: Coherent Thought Content: Appropriate Risk: No suicidal, homicidal or violent ideations, No plan and No intent Speech: Normal Mood: Anxious Affect: More blunt that in the past. Judgement: Good Insight: Appropriate Cognition: Normal Assessment: Continue to assess for Chronic PTSD. Treatment Goals: Supporting Allie to follow up with other providers to gain best diagnosis and clear neurology treatment plan; PTSD symptom/trigger identification and management. Patient Active Problem List Diagnosis Date Noted ??? Carpal tunnel syndrome of right wrist 09/05/2019 Priority: Medium ??? Depression with anxiety 09/05/2019 Priority: Medium ??? Hypoglycemia 09/05/2019 Priority: Medium ??? Impaired glucose tolerance 09/05/2019 Priority: Medium ??? Irritable bowel syndrome 09/05/2019 Priority: Medium ??? Kidney stone 09/05/2019 Priority: Medium ??? Morbid obesity ([facility]) 09/05/2019 Priority: Medium ??? Needle phobia 09/05/2019 Priority: Medium ??? Otalgia 09/05/2019 Priority: Medium ??? Panic attack 09/05/2019 Priority: Medium ??? Tobacco dependence syndrome 09/05/2019 Priority: Medium ??? Connective tissue disease overlap syndrome ([facility]) 09/05/2019 Priority: Medium ??? CVA (cerebral vascular accident) ([facility]) 08/11/2019 Priority: Medium ??? Current moderate episode of major depressive disorder without prior episode ([facility]) 08/04/2019 Priority: Medium Treatment: Trauma recovery treatment ([facility]); expressive arts/body based cognitive-behavioral treatment. Plan: Allie will follow up with the memory clinic; practice regulation imagery created in session and return for her next scheduled session (or be in communication with the grant writer regarding her new work schedule). Duration of Session: 60 Minutes Follow up appointment: 10/11/2019 Electronically signed by MINISTERIO SHIELDS documented in this encounter Plan of Treatment Not on file documented as of this encounter Visit Diagnoses Not on filedocumented in this encounter Care Teams Tipple Worker Relationship Specialty Start Date End Date Ayden Angulo MD PCP - General 07/28/19 01/28/23 documented as of this encounter
--- OUTSIDE RECORDS SUMMARY | 2024-06-16 00:28 | XMS_ITS | Encounter Summary ---
Author Organization [facility] Address [address] [place] [address] Care Team Providers Care Police Surgeon Name Role Phone Ayden Angulo MD Primary Care Provider Unava ilable Reason for Referral * Consult (Routine) - Closed Specialty Diagnoses / Procedures [facility] Rheumatology Diagnoses Connective tissue disease (HCC-CMS) Ayden Angulo MD Jones, Christine Haas, MD [address] [place] [address] [address] [place] [address] Referral ID Status Reason Start Date Expiration Date V isits Requested Visits Authorized [id number] Closed Specialty Services Required 09/05/2019 1 1 Question Answer Reason for Request: unexplained high inflammatory markers, just had a stroke at age 39- ? connection- has ongoing migratory joint pains Comments Note- had to r/s last visit as was at [facility] Reason for Visit * Reason Comments Hospital Discharge Follow Up Right middl e finger and right knee pain; difficulty swallowing / choking Encounter Details Date Type Department Care Team (Latest Contact Info) Description 09/05/2019 13:00 EST Office Visit [facility] [address] [place] [address] Ayden Angulo MD Cerebrovascular accident (CVA) due to other mechanism ([facility]) (Primary Dx); Tobacco dependence syndrome; Chronic fatigue; Swallowing dysfunction; Current moderate episode of major depressive disorder without prior episode ([facility]); Connective tissue disease ([facility]); Urinary incontinence in female; Plantar fasciitis of right foot Social History Tobacco Use Types Packs/Day Years Used Date Smoking Tobacco: Never Assessed Sex and Gender Information Value Date Recorded Sex Assigned at Not on file Gender Identity Female 08/04/2019 13:58 EST Sexual Orientation Not on file documented as of this encounter Last Filed Vital Signs Vital Sign Reading Time Taken Comments Blood Pressure 100/80 09/05/2019 1304 EST Pulse 96 09/05/2019 1304 EST Temperature - - Respiratory Rate - - Oxygen Saturation - - Inhaled Oxygen Concentration - - Weight 123 kg (271 lb 1.6 oz) 09/05/2019 1304 ES T Height 149.9 cm (4' 11) 09/05/2019 1304 EST Body Mass Index 54.76 09/05/2019 1304 EST documented in this encounter Ordered Prescriptions Prescription Sig Dispensed Refills Start Date End Da te HYDROcodone-acetaminophen (NORCO) 5-325 mg tabletIndications:Plantar fasciitis of right foot Take 1-2 Tabs by mouth every 6 hours as needed for Pain. Daily Max: 8 Tabs 20 Tab 09/05/2019 10/11/2019 documented in this encounter Progress Notes * Ayden Angulo MD - 09/05/2019 1300 EST Assessment/Plan: There are no diagnoses linked to this encounter. Jose Angulo MD 09/05/19 Subjective: Chief Complaint Patient presents with ??? Hospital Discharge Follow Up Right middle finger and right knee pain; difficulty swallowing / choking HPI: Allie comes in today status post hospitalization at [facility]. She presented to the hospital in [place] and was told she had a small stroke which progressed the next day and she was transferred to [facility] where she was hospitalized. She lost vision with this and says that she had right facial droop as well. While there she had a fairly quick recovery and was discharged the next day. She is completed outpatient OT and continues with PT. She was placed on a 21-day course of question Plavix but has now completed this. She is on 1 daily aspirin. She has numerous physical concerns that still bother her. #1 she has loss of lateral vision in her right eye. There was a period of time she had some nystagmus but that is now better. #2 she says hermemory is poor I cannot remember it yesterday. #3 she says she has some urinary urgency that is come about during this period of time as well #4 she says she is having a hard time swallowing she reports that she keeps a saliva in her mouth because at times she is afraid to swallow it and she willstart to cough. #5 depression symptoms continue. She had made contact with Arlin montanez here in this office but missed an appointment due to memory glitch. She is back on track with appointments every Wednesday. 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 Separate concerns center around her problems of migratory joint pains and swelling that have plagued her since last summer. She was set up to see Lorri Cage for second opinion but missed a visit. She understands it is important to get back on track with this as her background high inflammatory condition may be a factor in why she had a stroke Thankfully she is quit smoking she used the nicotine lozenges briefly but has since given those up. She has some musculoskeletal concerns. Her right knee continues to feel squishy and swollen and painful and she for no apparent reason has swelling and tenderness in the right hand third finger proximal PIP joint. On an ongoing basis she has also noticed in her right foot pain in the plantar arch this is caused her to have had an abnormal gait and some pains extend up her leg at times when she has to walk on the side of her foot. She has been immersing it in hot water from what she read on the Internet to help her foot and thinks it is helping she also rubs it [id number] over a bottle HPI She and her no longer live with each other after a long period of cohabitating in a less than happy situation her boyfriend Enrique is able to live with her now and she appreciates the support Outpatient Medications Marked as Taking for the 09/05/19 encounter (Office Visit) with Ayden Angulo MD Medication Sig Dispense Refill ??? aspirin 81 mg EC tablet Take 1 Tab by mouth daily. 100 Tab 4 ??? atorvastatin (LIPITOR) 40 mg tablet Take 40 mg by mouth. ??? clonazePAM (KLONOPIN) 0.5 mg tablet Take 1 Tab by mouth 2 times daily as needed for up to 30 days for Other (Anxiety). Daily Max: 1 mg 60 Tab 0 ??? FLUoxetine (PROZAC) 40 mg capsule 1 tab(s) orally once a day ??? HYDROcodone/acetaminophen 5 - 325 mg 5-325 mg tablet Take by mouth every 6 hours. 0.5-1 tab forsevere pain Review of Systems Constitutional: See above in the HPI section. Positive right knee pain, positive right hand third finger proximal PIP joint swelling currently. Derm no rash Neuro see above Urology positive urinary frequency and difficulty controlling urine. Psychiatry: Low mood No past medical history on file. No past surgical history on file. No family history on file. Social History Socioeconomic History [...] on file Tobacco Use ??? Smoking status: Not on file Substance and Sexual Activity ??? Alcohol use: Not on file ??? Drug use: Not on file ??? Sexual activity: Not on file Lifestyle ??? Physical activity: Days per week: Not on file Minutes per session: Not on file ??? Stress: Not on file Relationships ??? Social connections: Talks on phone: Not on file Gets together: Not on file Attends voodoo service: Not on file Active member of [...] Social History Narrative ??? Not on file Allergies Allergen Reactions ??? Erythromycin Other (See Comments) Unknown ??? Ophthalmic Unknown ??? Oxycodone-Acetaminophen Itching Objective: VS: Vitals: 09/05/19 1304 BP: 100/80 BP Cuff Location: Right arm BP Patient Position: Sitting BP Cuff Sizes: Adult, large Pulse: 96 Weight: (!) 123 kg (271 lb 1.6 oz) Height: (!) 149.9 cm (59) Body mass index is 54.76 kg/m??. Physical Exam: General appearance: Allie has a calm demeanor today. Long conversation about events of the last month with details of her [facility] hospitalization discussed. Positive visual field deficit on right side No sign of facial droop today Speech recognition software was used to complete this progress note. Typographical errors may be present. documented in this encounter Plan of Treatment Scheduled Referrals Name Type Priority Associated Diagnoses Order Schedule AMB CONS/FOLLOW UP RHEUMATOLOGY Outpatient Referral Routine Connective tissue disease ([facility]) Ordered: 09/05/2019 documented as of this encounter Visit Diagnoses Diagnosis Cerebrovascular accident (CVA) due to other mechanism ([facility] Primary Tobacco dependence syndrome Tobacco use disorder Chronic fatigue Other malaise and fatigue Swallowing dysfunction Dysphagia, unspecified Current moderate episode of major depressive disorder without prior episode ([facility]) Connective tissue disease ([facility]) Unspecified diffuse connective tissue disease Urinary incontinence in female Unspecified urinary incontinence Plantar fasciitis of right foot Plantar fascial fibromatosis documented in this encounter Discontinued Medications Medication Sig Discontinue Reason Start Date End Da te nicotine (NICODERM CQ) 21 mg/[address] 2 Patches onto the skin every 24 hours for 30 days. 08/24/2019 09/05/2019 nicotine polacrilex (COMMIT) 2 mg lozengeIndications:Tob acco abuse disorder Let one lozenge dissolve in your mouth every hour as needed. Do not exceed 20 lozenges per day. 08/28/2019 09/05/2019 mupirocin (BACTROBAN) 2 % ointment Apply topically 3 times daily. 1 application on nasal lesions 09/05/2019 documented as of this encounter Care Teams Police Surgeon Relationship Specialty Start Date End Date Ayden Angulo MD PCP - General 07/28/19 01/28/23 documented as of this encounter
--- OUTSIDE RECORDS SUMMARY | 2024-06-16 00:28 | XMS_ITS | Encounter Summary ---
Author Organization [facility] Address [address] [place] [address] Care Team Providers Care Hand Marker Name Role Phone Ayden Angulo MD Primary Care Provider Unava ilable Encounter Details Date Type Department Care Team (Late st Contact Info) Description 08/20/2019 Abstract [facility] Adult Primary Care - [address] [id number] Ambulatory, Examination Supervisor Social History Tobacco Use Types Packs/Day Years Used Date Smoking Tobacco: Never Assessed Sex and Gender Information Value Date Recorded Sex Assigned at Not on file Gender Identity Female 08/04/2019 13:58 EST Sexual Orientation Not on file documented as of this encounter Miscellaneous Notes * Addendum Note - Marisela Garner - 08/20/20192105 ESTAddended by: MARISELA GARNER on: 08/24/2019 01:59 Modules accepted: Orders documented in this encounter Plan of Treatment Not on file documented as of this encounter Visit Diagnoses Not on filedocumented in this encounter Discontinued Medications Medication Sig Discontinue Reason Start Date End Da te HYDROcodone/acetaminop hen 5 - 325 mg 5-325 mg tablet Take 1 Package by mouth once. Error 08/24/2019 UNABLE TO FIND Acetaminophen-Hydrocod one Bitartrate 325 mg-5 mg tablet, Si/2 to 1 tab(s) orally every 6 hours for severe pain Error 08/24/2019 documented as of this encounter Historical Medications * This list may reflect changes made after this encounter. Medication Sig Dispensed Refills Start Date End Date HYDROcodone/acetaminop hen 5 - 325 mg 5-325 mg tablet Take by mouth every 6 hours. 0.5-1 tab for severe pain 11/23/2019 HYDROcodone/acetaminop hen 5 - 325 mg 5-325 mg tablet Take 1 Package by mouth once. 08/24/2019 UNABLE TO FIND Acetaminophen-Hydrocodo ne Bitartrate 325 mg-5 mg tablet, Si/2 to 1 tab(s) orally every 6 hours for severe pain 08/24/2019 mupirocin (BACTROBAN) 2 % ointment Apply topically 3 times daily. 1 application on nasal lesions 09/05/2019 omeprazole (PRILOSEC) 20 mg capsule Take 1 Cap by mouth daily. 08/13/2017 08/21/2019 FLUoxetine (PROZAC) 40 mg capsule 1 tab(s) orally once a day 07/16/2015 01/23/2020 diclofenac (VOLTAREN) 75 mg EC tablet Take 1 Tab by mouth 2 times daily. 01/27/2019 08/21/2019 added in this encounter Care Teams Hand Marker Relationship Specialty Start Date End Date Ayden Angulo MD PCP - General 07/28/19 01/28/23 documented as of this encounter
--- OUTSIDE RECORDS SUMMARY | 2024-06-16 00:28 | XMS_ITS | Encounter Summary ---
Author Organization [facility] Address [address] [place] [address] Care Team Providers Care University Administrator Name Role Phone Ayden Angulo MD Primary Care Provider Unava ilable Reason for Visit * Reason Onset Date Comments Other 08/28/2019 Encounter Details Date Type Department Care Team (Late st Contact Info) Description 08/28/[address] [facility] Medicine [facility] [address] [place] [address] Ayden Angulo MD Other Social History Tobacco Use Types Packs/Day Years Used Date Smoking Tobacco: Never Assessed Sex and Gender Information Value Date Recorded Sex Assigned at Not on file Gender Identity Female 08/04/2019 13:58 EST Sexual Orientation Not on file documented as of this encounter Ordered Prescriptions Prescription Sig Dispensed Refills Start Date End Da te nicotine polacrilex (COMMIT) 2 mg lozengeIndications:Toba account classification clerk abuse disorder Let one lozenge dissolve in your mouth every hour as needed. Do not exceed 20 lozenges per day. 168 Lozenge 2 08/28/2019 09/05/2019 documented in this encounter Miscellaneous Notes * Telephone Encounter - Belkys Linton - 08/28/2019 1357 EST Return to work letter has been picked up. * Telephone Encounter - Janie Melo RN - 08/28/2019 1248 EST Pt advised * Telephone Encounter - Ayden Angulo MD - 08/28/2019 1224 EST Note done, in pod 3 bin * Telephone Encounter - Janie Melo RN - 08/28/2019 1139 EST Other we have not seen her since her stroke, went over her meds with her, she is taking all meds asprescribed, she has a TCM visit here on 09/05, she has returned to work 4 hrs a day, she had a notefrom [facility] to return to work but she lost it, can you write her a note, she will pick ip up * Telephone Encounter - Janie Melo RN - 08/28/2019 1135 EST Pt advised * Telephone Encounter - Ksenia Vazquez RN - 08/28/2019 1133 EST LMTCB * Telephone Encounter - Ayden Angulo MD - 08/28/2019 1044 EST Called in, inform. * Telephone Encounter - Belkys Linton - 08/28/2019 0905 EST Pt called stating she quit smoking about a week ago and would like the Nicotine Loss[facility] [place]. documented in this encounter Plan of Treatment Not on file documented as of this encounter Visit Diagnoses Diagnosis Tobacco abuse disorder- Primary Tobacco use disorder documented in this encounter Care Teams University Administrator Relationship Specialty Start Date End Date Ayden Angulo MD PCP - General 07/28/19 01/28/23 documented as of this encounter
--- OUTSIDE RECORDS SUMMARY | 2024-06-16 00:28 | XMS_ITS | Encounter Summary ---
Author Organization [facility] Address [address] [place] [address] Care Team Providers Care Phosphatic Fertilizer Supervisor Name Role Phone Ayden Angulo MD Primary Care Provider Unava ilable Reason for Visit * Reason Onset Date Comments Appointment Related 09/04/2019 Encounter Details Date Type Department Care Team ([facility] st Contact Info) Description 09/04/2019 Telephone [facility] Adult Primary Care - [place] [address] [place] [address] Sasha Shields [address] [place], [place] [id number] Appointment Related Social History Tobacco Use Types Packs/Day Years Used Date Smoking Tobacco: Never Assessed Sex and Gender Information Value Date Recorded Sex Assigned at Not on file Gender Identity Female 08/04/2019 13:58 EST Sexual Orientation Not on file documented as of this encounter Miscellaneous Notes * Telephone Encounter - Sasha Shields - 09/04/2019 1540 EST Lm for pt to check in about no-show 09/01/19, asked her to call back if she would like the aligner typewriter to call before her next session 09/08/19 @ [facility] @ 3:00; instructed to call [facility] office and leave message via registration staff/[employer]. documented in this encounter Plan of Treatment Not on file documented as of this encounter Visit Diagnoses Not on filedocumented in this encounter Care Teams Phosphatic Fertilizer Supervisor Relationship Specialty Start Date End Date Ayden Angulo MD PCP - General 07/28/19 01/28/23 documented as of this encounter
--- OUTSIDE RECORDS SUMMARY | 2024-06-16 00:28 | XMS_ITS | Encounter Summary ---
Author Organization [facility] Address [address] [place] [address] Care Team Providers Care Bottle Booth Attendant Name Role Phone Ayden Angulo MD Primary Care Provider Unava ilable Reason for Referral * Referral (Routine) - Closed Specialty Diagnoses / Procedures Referred By Contac t Referred To Contact Diagnoses Cognitive deficit S/P CVA (cerebrovascular accident) Ayden Angulo MD Referral ID Status Reason Start Date Expiration Date V isits Requested Visits Authorized [id number] Closed Specialty Services Required 10/03/2019 1 1 Question Answer Age (19-60): Yes Is [place]an the patient? s first language: Yes Is the patient an ETOH/Substance abuser: No Has the patient suffered a CVA: Yes Date of CVA: 08/08 Has the patient suffered a moderate to severe TBI: No Does the patient have a known co-morbid psychiatric illness: Yes Specify co-morbid psychiatric condition: ANXIETY Does the patient have any physical (motor), visual, or speech limitations that would impede their ability to read or write: No Comments REFER TO [facility] FOR NEUROPSYCH TESTING- WAS ADMITTED TO [facility] FOR A SMALLSTROKE, NOW WITH EVOLVING SYMPTOMS OF SHORT TERM MEMORY PROBLEMS. Reason for Visit * Reason Comments Follow-up Encounter Details Date Type Department Care Team (Late st Contact Info) Description 10/03/2019 13:00 EST Office Visit [facility] Family Medicine - [place] [address], [address] [place] [address] Ayden Angulo MD Tobacco dependence syndrome (Primary Dx); Memory disorder; Cognitive deficit S/P CVA (cerebrovascular accident); Current moderate episode of major depressive disorder without prior episode ([facility]) Social History Tobacco Use Types Packs/Day Years Used Date Smoking Tobacco: Every Day Cigarettes Smokeless Tobacco: Never Tobacco Cessation:Ready to Q uit: Yes Alcohol Use Standard Drinks/Week Comments Yes 0 [...] Sign Reading Time Taken Comments Blood Pressure 104/72 10/03/2019 1306 EST Pulse 80 10/03/2019 1306 EST Temperature - - Respiratory Rate 18 10/03/2019 1306 EST Oxygen Saturation - - Inhaled Oxygen Concentration - - Weight 123.8 kg (272 lb 14.4 oz) 10/03/2019 1306 EST Height - - Body Mass Index 55.12 09/05/2019 1304 EST documented in this encounter Ordered Prescriptions Prescription Sig Dispensed Refills Start Date End Da te LORazepam (ATIVAN) 1 mg tablet Take 0.5 Tabs by mouth 2 times daily as needed for up to 14 days for Anxiety. Daily Max: 1 mg 28 Tab 10/03/2019 10/17/2019 nicotine polacrilex (COMMIT) 4 mg lozenge Let one lozenge dissolve in your mouth every hour as needed. Do not exceed 20 lozenges per day. 108 Lozenge 1 10/03/2019 10/11/2019 documented in this encounter Progress Notes * Ayden Angulo MD - 10/03/2019 1300 EST [facility] Subjective: Chief Complaint(s): Follow-up HPI: This patient comes in with her partner Enrique to discuss a few issues. 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 She starts byrelaying that if she sneezes or coughs she has a complete wipe out of the previous 15 minutes of memory. On top of that, many details are lost daily as well. 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 She gives examples such as being in [employer] recently and not knowing how she got there. The episodes of memory loss are followed by a headache, which does then pass. 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 She says she and boyfriend are buying a house and that makes her happy. She denies depression symptoms. She says she is still scared by the stroke. Previous visual problems better- just fuzzy. Sleeping excessive hours- about 11 hours a night and lots of naps as well. Oddly, reports taking AM shots of vodlka- not a big issue in her mind. Does it rarely. Says she smokes marijuana at night to relax. 2) would like referral to a hearing screen coordinator to lose wt. 3) would like lozenges to quit smoking. 4) has neuro appt at [facility] in October. 5) is seeing counselor here after a few missed appts. That she forgot............ I have reviewed patient's tobacco history: reports [...] mg by mouth., Disp: , Rfl: ??? diclofenac (VOLTAREN) 75 mg EC tablet, TAKE ONE TABLET BY MOUTH TWICE DAILY , Disp: 60 Tab, Rfl: 1 ??? FLUoxetine (PROZAC) 40 mg capsule, 1 tab(s) orally once a day, Disp: , Rfl: ??? HYDROcodone-acetaminophen (NORCO) 5-325 mg tablet, Take 1-2 Tabs by mouth every 6 hours as needed for Pain. Daily Max: 8 Tabs, Disp: 20 Tab, Rfl: 0 ??? HYDROcodone/acetaminophen 5 - 325 mg 5-325 mg tablet, Take by mouth every 6 hours. 0.5-1 tab for severe pain, Disp: , Rfl: ??? LORazepam (ATIVAN) 1 mg tablet, Take 0.5 Tabs by mouth 2 times daily as needed for up to 14 days for Anxiety. Daily Max: 1 mg, Disp: 28 Tab, Rfl: 0 ??? nicotine polacrilex (COMMIT) 4 mg lozenge, [...] file Gets together: Not on file Attends adventist service: Not on file Active member of [...] medications. ROS: ROS See above Objective: Examination: Vitals: BP 104/72 Pulse 80 Resp 18 Wt (!) 123.8 kg (272 lb 14.4 oz) BMI 55.12 kg/m?? Body mass index is 55.12 kg/m??. Physical Exam Oddly bright affect noted- chatty, conversant, no word finding difficulites. Full motor strength noted. Data reviewed with patient mri done [facility] Assessment & Plan: 1. Tobacco dependence syndrome would like to quit again. did well with lozenges so will prescribe again. reminder to Quit with them, not slow down! 2. Memory disorder odd presentation- ? traumatized vs. true cogitive impairment from her CVA? Will alert therapist as well as set up neuropsych testing. 3. Cognitive deficit S/P CVA (cerebrovascular accident) AMB CONS/FOLLOW UP NEUROPSYCHOLOGICAL TESTING & ASSESSMENT see above. Ayden Angulo MD documented in this encounter Plan of Treatment Scheduled Referrals Name Type Priority Associated Diagnoses Order Schedule AMB CONS/FOLLOW UP NEUROPSYCHOLOGICAL TESTING & ASSESSMENT Outpatient Referral Routine Cognitive deficit S/P CVA (cerebrovascular accident) Ordered: 10/03/2019 documented as of this encounter Visit Diagnoses Diagnosis Tobacco dependence syndrome- Primary Tobacco use disorder Memory disorder Memory loss Cognitive deficit S/P CVA (cerebrovascular accident) Cognitive deficits, late effect of cerebrovascular disease Current moderate episode of major depressive disorder without prior episode ([facility]) documented in this encounter Orders Medications Ordered That Zain ht Not Have Been Administered Count Last Ordered Date First Ordered Date LORazepam (ATIVAN) tablet 0.5 mg 1 10/03/19 20 documented in this encounter Care Teams Bottle Booth Attendant Relationship Specialty Start Date End Date Ayden Angulo MD PCP - General 07/28/19 01/28/23 documented as of this encounter
--- OUTSIDE RECORDS SUMMARY | 2024-06-16 00:28 | XMS_ITS | Encounter Summary ---
Author Organization [facility] Address [address] [place] [address] Care Team Providers Care Purchasing Manager/Sales Name Role Phone Ayden Angulo MD Primary Care Provider Unava ilable Reason for Visit * Reason Onset Date Comments Appointment Related 09/08/2019 Encounter Details Date Type Department Care Team ([facility] st Contact Info) Description 09/08/2019 Telephone [facility] Adult Primary Care - [place] [address] [place], [place] [address] Sasha Shields [address] [address] [place], [place] [id number] Appointment Related Social History Tobacco Use Types Packs/Day Years Used Date Smoking Tobacco: Never Assessed Sex and Gender Information Value Date Recorded Sex Assigned at Not on file Gender Identity Female 08/04/2019 13:58 EST Sexual Orientation Not on file documented as of this encounter Miscellaneous Notes * Telephone Encounter - Sasha Shields - 09/08/2019 1544 EST 1st call: spoke with Allie to remind her about appt @3:00 in [place]; she asked for a telephone consult, which the life insurance underwriter agreed to do. 2nd call: to have consult, the life insurance underwriter lm for Allie to call back, which she did not do. documented in this encounter Plan of Treatment Not on file documented as of this encounter Visit Diagnoses Not on filedocumented in this encounter Care Teams Purchasing Manager/Sales Relationship Specialty Start Date End Date Ayden Angulo MD PCP - General 07/28/19 01/28/23 documented as of this encounter
--- OUTSIDE RECORDS SUMMARY | 2024-06-16 00:28 | XMS_ITS | Encounter Summary ---
Author Organization [facility] Address [address] [place] [address] Care Team Providers Care Maintenance And Custodian Supervisor Name Role Phone Ayden Angulo MD Primary Care Provider Unava ilable Reason for Visit * Reason Onset Date Comments Other 08/22/2019 Encounter Details Date Type Department Care Team (Late st Contact Info) Description 08/22/2019 Telephone [facility] Family Medicine - [place] [address] [place] [address] Ayden Angulo MD Other Social History Tobacco Use Types Packs/Day Years Used Date Smoking Tobacco: Never Assessed Sex and Gender Information Value Date Recorded Sex Assigned at Not on file Gender Identity Female 08/04/2019 13:58 EST Sexual Orientation Not on file documented as of this encounter Miscellaneous Notes * Telephone Encounter - Preston Steward RN - 08/22/2019 1011 EST Orders pended to Tc on another te dated 08/14 * Telephone Encounter - Belkys Linton - 08/22/2019 1003 EST Jana from [facility] called stating they received a med refill request for her Nicotine patch - states it is a 21mg patch for 2 patches a day. Jana asked that her PCP send this in. documented in this encounter Plan of Treatment Not on file documented as of this encounter Visit Diagnoses Not on filedocumented in this encounter Care Teams Maintenance And Custodian Supervisor Relationship Specialty Start Date End Date Ayden Angulo MD PCP - General 07/28/19 01/28/23 documented as of this encounter
--- OUTSIDE RECORDS SUMMARY | 2024-06-16 00:28 | XMS_ITS | Encounter Summary ---
Author Organization [facility] Address [address] [place] [address] Care Team Providers Care Scrap Baller Name Role Phone Ayden Angulo MD Primary Care Provider Unava ilable Reason for Visit * Reason Onset Date Comments Appointment Related 09/26/2019 Encounter Details Date Type Department Care Team (Late st Contact Info) Description 09/26/2019 Telephone [facility] Family Medicine [facility] [address] [place], [place] [address] Sasha Shields [address] [place], [place] [id number] Appointment Related Social History Tobacco Use Types Packs/Day Years Used Date Smoking Tobacco: Never Assessed Sex and Gender Information Value Date Recorded Sex Assigned at Not on file Gender Identity Female 08/04/2019 13:58 EST Sexual Orientation Not on file documented as of this encounter Miscellaneous Notes * Telephone Encounter - Sasha Shields - 09/26/2019 1108 EST Spoke with pt re reminder about scheduled session 09/27/2019 @[place] @ 2:00. documented in this encounter Plan of Treatment Not on file documented as of this encounter Visit Diagnoses Not on filedocumented in this encounter Care Teams Scrap Baller Relationship Specialty Start Date End Date Ayden Angulo MD PCP - General 07/28/19 01/28/23 documented as of this encounter
--- OUTSIDE RECORDS SUMMARY | 2024-06-16 00:28 | XMS_ITS | Encounter Summary ---
Author Organization [facility] Address [address] [place] [address] Care Team Providers Care Linotype Machinist Apprentice Name Role Phone Ayden Angulo MD Primary Care Provider Unava ilable Reason for Visit * Reason Onset Date Comments Patient Information Update 08/14/2019 [facility] TCM Encounter Details Date Type Department Care Team (Late st Contact Info) Description 08/14/[address] [facility] Family Medicine [facility] [address] [place] [address] Ayden Angulo MD Patient Information Update ([facility]) Social History Tobacco Use Types Packs/Day Years Used Date Smoking Tobacco: Never Assessed Sex and Gender Information Value Date Recorded Sex Assigned at Not on file Gender Identity Female 08/04/2019 13:58 EST Sexual Orientation Not on file documented as of this encounter Miscellaneous Notes * Telephone Encounter - Preston Steward RN - 08/21/2019 0933 EST Tried calling patient unable to reach, tried both numbers, patient has upcoming appointment to TC 09/05 * Telephone Encounter - Preston Steward RN - 08/21/2019 0932 EST meds reconcilled as per d/c summary patient has upcoming appointment with TC * Telephone Encounter - Deloris Rod - 08/14/2019 1612 EST Admit Date: 08/11/19 Discharge Date: 08/12/19 Facility: [facility] Discharge Location: home Diagnosis: left midbrain infarcts; 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 Discontinued as Inpatient 08/13/2017 08/21/2019 diclofenac (VOLTAREN) 75 mg EC tablet Take 1 Tab by mouth 2 times daily. Discontinued as Inpatient 01/27/2019 08/21/2019 documented as of this encounter Historical Medications * This list may reflect changes made after this encounter. Medication Sig Dispensed Refills Start Date End Date pantoprazole (PROTONIX) 20 mg tablet Take 20 mg by mouth. 08/12/2019 019 nicotine (NICODERM CQ) 21 mg/[address] 42 mg onto the skin. 08/13/2019 08/22/2019 clopidogrel (PLAVIX) 75 mg tablet Take 75 mg by mouth. 08/12/2019 019 atorvastatin (LIPITOR) 40 mg tablet Take 40 mg by mouth. 08/12/2019 020 aspirin chewable 81 mg tablet Take 81 mg by mouth. 08/12/2019 019 added in this encounter Care Teams Linotype Machinist Apprentice Relationship Specialty Start Date End Date Ayden Angulo MD PCP - General 07/28/19 01/28/23 documented as of this encounter
--- OUTSIDE RECORDS SUMMARY | 2024-06-16 00:28 | XMS_ITS | Encounter Summary ---
Author Organization [facility] Address [address] [place] [address] Care Team Providers Care Diamond Grader Name Role Phone Guicho Monge MD Primary Care Provider [phone] Encounter Details Date Type Department Care Team (Latest Contact Info) Description 11/02/2018 11:24 EST - 11/02/2018 23:59 EST Hospital Encounter [address] [address] Unknown, Provider, Discharge Disposition: Home or Self Care Social History Tobacco Use Types Packs/Day Years Used Date Smoking Tobacco: Never Assessed Sex and Gender Information Value Date Recorded Sex Assigned at Not on file Gender Identity Female 08/04/2019 13:58 EST Sexual Orientation Not on file documented as of this encounter Medications at Time of Discharge Medication Sig Dispensed Refills Start Date End Date FLUoxetine (PROZAC) 40 mg capsule 1 tab(s) orally once a day 07/16/2015 01/23/2020 omeprazole (PRILOSEC) 20 mg capsule Take 1 Cap by mouth daily. 08/13/2017 08/21/2019 documented as of this encounter Discharge Disposition Disposition Code Departure Means Destination Home or Self Long Term documented in this encounter Plan of Treatment Not on file documented as of this encounter Visit Diagnoses Not on filedocumented in this encounter Care Teams Diamond Grader Relationship Specialty Start Date End Date Guicho Monge MD PCP - General 07/27/15 07/27/19 documented as of this encounter
--- OUTSIDE RECORDS SUMMARY | 2024-06-16 00:28 | XMS_ITS | Encounter Summary ---
Author Organization [facility] Address [address] [place] [address] Care Team Providers Care Adoption Counselor Name Role Phone Guicho Monge MD Primary Care Provider [phone] Encounter Details Date Type Department Care Team (Late st Contact Info) Description 11/02/2018 Historical Results Only [facility] - [facility] Radiology Results [address] [place] [address] Leandra Chino, MUSIC PUBLICIST ENP [address] [place] [address] Social History Tobacco Use Types Packs/Day Years Used Date Smoking Tobacco: Never Assessed Sex and Gender Information Value Date Recorded Sex Assigned at Not on file Gender Identity Female 08/04/2019 13:58 EST Sexual Orientation Not on file documented as of this encounter Plan of Treatment Not on file documented as of this encounter Procedures Procedure Name Priority Date/Time Associated Diagnosis Comments XR CHEST 2 VIEWS 11/02/2018 21:1 5 EST COMPLETE BLOOD COUNT WITH DIFFERENTIAL (AUTO) Routine 11/02/2018 18:45 EST TROPONIN I Routine 11/02/2018 18:45 EST ANTISTREP O TITER, S Routine 11/02/2018 18:45 EST C REACTIVE PROTEIN Routine 11/02/2018 18 :45 EST C REACTIVE PROTEIN Routine 11/02/2018 18 :45 EST TSH Routine 11/02/2018 18:45 EST MAGNESIUM Routine 11/02/2018 18:45 EST COMPREHENSIVE METABOLIC PANEL (CMP) Routine 11/02/2018 18:45 EST documented in this encounter Results * XR CHEST 2 VIEWS (11/02/2018 21:15 EST) Anatomical Region Laterality Modality Other 11/02/2018 21:1 5 EST Narrative 11/02/2018 21:15 EST ? EXAM: RADIOLOGY/CHEST PA ?? LAT ?EX. D/ (2022) ? CLINICAL INFORMATION: ? sob ? EXAM: ?XR Chest, 2 Views ? EXAM DATE/TIME: ?11/02/2018 8:08 PM ? CLINICAL HISTORY: ?38 years old, female; Signs and symptoms; Shortness of breath; ? Additional info: SOB ? TECHNIQUE: ?XR of the chest, 2 views. ? COMPARISON: ?No relevant prior studies available. ? FINDINGS: ?Lungs:. No consolidation. There is left peribronchial cuffing. ? There is mild elevation of the right hemidiaphragm. ?Pleural space: Unremarkable. No pleural effusion. No ? pneumothorax. ?Heart/Mediastinum: Unremarkable. Mild prominence to the cardiac ? shadow. ?Bones/joints: Skeletal degenerative changes. ? IMPRESSION: ? 1. No focal consolidation or pneumothorax. ? 2. Left peribronchial cuffing. This can be seen with viral ? processes /small airways disease (bronchiolitis, asthma). ? Pulmonary edema can also occasionally produce this appearance. ? 3. Mild cardiomegaly. Other findings as above. ? REPORT SIGNED IN OTHER VENDOR SYSTEM 11/02/2018 ?Reported By: Sasha Gay MD ? CC: ? Transcribed Date/Time: 11/02/2018 (2114) ? Political Analyst: ? Printed Date/Time: 03/13/2019 (0551) ? PAGE 1 ? Signed Report ? Procedure Note Sasha Gay MD - 07/27/2019 EXAM: RADIOLOGY/CHEST PA LAT EX. D/ (2022) CLINICAL INFORMATION: sob EXAM: XR Chest, 2 Views EXAM DATE/TIME: 11/02/2018 8:08 PM CLINICAL HISTORY: 38 years old, female; Signs and symptoms; Shortness of breath; Additional info: SOB TECHNIQUE: XR of the chest, 2 views. COMPARISON: No relevant prior studies available. FINDINGS: Lungs:. No consolidation. There is left peribronchial cuffing. There is mild elevation of the right hemidiaphragm. Pleural space: Unremarkable. No pleural effusion. No pneumothorax. Heart/Mediastinum: Unremarkable. Mild prominence to the cardiac shadow. Bones/joints: Skeletal degenerative changes. IMPRESSION: 1. No focal consolidation or pneumothorax. 2. Left peribronchial cuffing. This can be seen with viral processes /small airways disease (bronchiolitis, asthma). Pulmonary edema can also occasionally produce this appearance. 3. Mild cardiomegaly. Other findings as above. REPORT SIGNED IN OTHER VENDOR SYSTEM 11/02/2018 Reported By: Sasha Gay MD CC: Transcribed Date/Time: 11/02/2018 (2114) Political Analyst: Printed Date/Time: 03/13/2019 (5418) PAGE 1 Signed Report Leandra PURI ENP IMG DIAGNOSTIC ROSHAN GING ORDERABLES * ANTISTREP O TITER, S (11/02/2018 18:45 EST) ANTISTREPTOLYSIN O - [facility] <20 0 - 530 IU/mL 11/04/2018 17:57 EST [facility] Comment: Test Performed by: [facility] [address] [place] [address] 11/02/2018 18:4 5 EST 11/02/2018 18:53 EST Leandra PURI ENP IMMUNOLOGY AND SER OLOGY ORDERABLES [facility] * MAGNESIUM (11/02/2018 18:45 EST) Magnesium 2.20 1.7 - 2.8 mg/dL 11/02/2018 19:33 EST [facility] 11/02/2018 18:4 5 EST 11/02/2018 18:53 EST Leandra PURI ENP CHEMISTRY & BLOOD GAS ORDERABLES [facility] * (ABNORMAL) C REACTIVE PROTEIN (11/02/2018 18:45 EST) C-Reactive Protein 53.8(H) <10.0 mg/L 11/02/2018 19:33 EST [facility] 11/02/2018 18:4 5 EST 11/02/2018 18:53 EST Leandra PURI ENP CHEMISTRY & BLOOD GAS ORDERABLES [facility] * (ABNORMAL) COMPREHENSIVE METABOLIC PANEL (CMP) (11/02/2018 18:45 EST) Albumin % 4.2 3.4 - 4.9 g/dL 11/02/2018 19:33 [facility] ALKALINE PHOSPHATASE - [facility] 102 38 - 126 U/L 11/02/2018 19:33 [facility] BILIRUBIN TOTAL 0.3 0.2 - 1.3 mg/dL 11/02/2018 19:33 [facility] BUN - [facility] 18 10 - 26 mg/dL 11/02/2018 19:33 [facility] CALCIUM - [facility] 9.2 8.5 - 10.5 mg/dL 11/02/2018 19:33 [facility] Chloride 102 96 - 110 mmol/L 11/02/2018 19:33 [facility] CO2 Total 27 22 - 32 mEq/L 11/02/2018 19:33 [facility] CREATININE 0.69 0.52 - 1.04 mg/dL 11/02/2018 19:33 [facility] eGFR >60 11/02/2018 19:33 [facility] Comment: Chronic renal impairment is defined as GFR <60 Multiply result by 1.210 for patients. eGFR calculated using the IDMS-traceable MDRD Study Equation. ??(effective 07/23/2014) Anion Gap 10 0 - 18 11/02/2018 19:33 [facility] GLUCOSE - [facility] 102(H) 70 - 100 mg/dL 11/02/2018 19:33 [facility] Potassium 4.4 3.5 - 5.0 mEq/L 11/02/2018 19:33 [facility] Sodium 139 136 - 145 mEq/L 11/02/2018 19:33 [facility] TOTAL PROTEIN - [facility] 7.2 6.2 - 8.2 gm/dL 11/02/2018 19:33 [facility] SGOT/AST - [facility] 24 14 - 36 U/L 11/02/2018 19:33 [facility] SGPT/ALT - [facility] 47 9 - 52 U/L 9 19:33 EST [facility] 11/02/2018 18:4 5 EST 11/02/2018 18:[address] [facility] ENP CHEMISTRY & BLOOD GAS ORDERABLES Performing Organization Address [facility]/ZIP Co de Phone Number [facility] * TROPONIN I (11/02/2018 18:45 EST) Pathologist [facility] Troponin I (ng/mL) 0.017 0.000 - 0.034 ng/mL 11/02/2018 19:26 EST [facility] Comment: Interpretation comments: ??Cutoff for a positive troponin result is set at the 99th percentile of the upper reference limit. ??Elevated troponin must always be interpreted in the context of the clinical presentation. ?Serial troponin testing 3-6 hr from baseline is favored over relying on a single troponin level. ?? The results of this assay can be falsely lowered due to the consumption of Biotin. 11/02/2018 18:4 5 EST 11/02/2018 18:[address] [facility] EN CHEMISTRY & BLOOD GAS ORDERABLES Performing Organization Address [facility] Number [facility] * TSH (11/02/2018 18:45 EST) [facility] THYROID STIM [facility] 1.89 0.46 - 4.68 uIU/ml 11/02/2018 22:38 EST [facility] Comment: The results of this assay can be falsely lowered due to the consumption of Biotin. 11/02/2018 18:4 5 EST 11/02/2018 21:56 EST Narrative [facility] - 11/02/2018 22:38 EST AOT: 11/02/18 2156: TSH Leandra Chino [facility] ENP CHEMISTRY & BLOOD GAS ORDERABLES Performing Organization Address [facility]/ZIP Co de Phone Number [facility] * (ABNORMAL) C REACTIVE PROTEIN (11/02/2018 18:45 EST) SED RATE - [facility] 75(H) 1 - 17 mm/hr 11/02/2018 19:10 [facility] 11/02/2018 18:4 5 EST 11/02/2018 18:53 EST Leandra Chino MUSIC PUBLICIST ENP CHEMISTRY & BLOOD GAS ORDERABLES [facility] * (ABNORMAL) COMPLETE BLOOD COUNT WITH DIFFERENTIAL (AUTO) (11/02/2018 18:45 EST) ABSOLUTE NEUTROPHIL COUN - [facility] 8.3 2.2 - 8.85 10e3/uL 11/02/2018 19:00 [facility] BASO # - [facility] 0.04 0.01 - 0.11 10e/uL 11/02/2018 19:00 [facility] BASO % - [facility] 0 0 - 2 % 11/02/2018 19:00 [facility] EOS # - [facility] 0.08 0.03 - 0.61 10e3/ul 11/02/2018 19:00 [facility] EOS % - [facility] 1 0 - 5 % 11/02/2018 19:00 [facility] GRAN % - [facility] 73.5 40 - 80 % 11/02/2018 19:00 [facility] HEMATOCRIT - [facility] 39.9 34.9 - 44.4 % 11/02/2018 19:00 [facility] HEMOGLOBIN - [facility] 12.4 11.6 - 15.2 g/dl 11/02/2018 19:00 [facility] IG# - [facility] 0.05 0 - 0.7 10e3/uL 11/02/2018 19:00 [facility] IG% - [facility] 0.4 0 - 0.9 % 11/02/2018 19:00 [facility] LYMPH # - [facility] 2.1 1.09 - 3.3 10e3/ul 11/02/2018 19:00 [facility] LYMPH% - [facility] 18.5(L) 20 - 40 % 11/02/2018 19:00 [facility] MEAN CORPUSCULAR HGB - [facility] 26.8 26.7 - 33.3 pg 11/02/2018 19:00 [facility] MEAN CORPUSCULAR HGB CONC - [facility] 31.1(L) 32.1 - 35.9 g/dL 11/02/2018 19:00 [facility] MEAN CELL VOLUME - [facility] 86.4 81 - 98 fl 11/02/2018 19:00 [facility] MONO # - [facility] 0.7 0.1 - 0.8 10e3/uL 11/02/2018 19:00 [facility] MONO% - [facility] 6.5 0 - 12 % 11/02/2018 19:00 [facility] PLATELET COUNT 499(H) 141 - 377 10e3/ul 11/02/2018 19:00 [facility] RED BLOOD COUNT - [facility] 4.62 3.86 - 5.04 10e3/ul 11/02/2018 19:00 [facility] RED CELL DISTRI WIDTH - [facility] 13.2 <14.7 % 11/02/2018 19:00 [facility] WHITE BLOOD COUNT - [facility] 11.3 4.0 - 12.4 10e3/ul 11/02/2018 19:00 [facility] 11/02/2018 18:4 5 EST 11/02/2018 18:53 EST Leandra Chino MUSIC PUBLICIST ENP HEMATOLOGY & PF4 O RDERABLES [facility] documented in this encounter Visit Diagnoses Not on filedocumented in this encounter Care Teams Adoption Counselor Relationship Specialty Start Date End Date Guicho Monge MD PCP - General 07/27/15 07/27/19 documented as of this encounter
--- OUTSIDE RECORDS SUMMARY | 2024-06-16 00:28 | XMS_ITS | Encounter Summary ---
Author Organization [facility] Address [address] [place] [address] Care Team Providers Care Impression Printer Name Role Phone Ayden Angulo MD Primary Care Provider Unadanilo ildebi Encounter Details Date Type Department Care Team (Late st Contact Info) Description 08/04/2019 14:00 EST Community Health Team [facility] [place] - [address] [address] t Behavioral Health, [facility] Adult Current moderate episode of major depressive disorder without prior episode ([facility]) (Primary Dx) Social History Tobacco Use Types Packs/Day Years Used Date Smoking Tobacco: Never Assessed Sex and Gender Information Value Date Recorded Sex Assigned at Not on file Gender Identity Female 08/04/2019 13:58 EST Sexual Orientation Not on file documented as of this encounter Progress Notes * Ministerio Shields - 08/04/2019 1400 EST Outpatient Behavioral Health Progress Note Date of Service: 08/04/2019 Primary Care Provider: Ayden Angulo Present Patient, Spouse/Partner Subjective: (updates from last session) Allie presented on time for her scheduled session, again requesting her partner Enrique attend. 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 Updates about her self-care practice, including daily practice of positive reminders about the beginning of her work, both using visual and kinesthetic senses. Objective: Allie used her session to delve further into what is in her pile on including sharing with the internal communications writer further trauma events in her life. Exploration around these traumas as related to her current symptoms, with discussion about PTSD being a diagnosis and treatment focus. Appearance: Appropriate, Disheveled and Overweight Behavior: Appropriate and channeling/strong focus; overtime time overwhelm/freeze Thought Process: Coherent and rigid Thought Content: Appropriate Risk: No suicidal, homicidal or violent ideations Speech: Normal Mood: Anxious and Depressed Affect: Flat Judgement: Good Insight: Appropriate Cognition: Normal Assessment: Current moderate episode of major depressive disorder without prior episode ([facility]) [F32.1] Will do both BDI-11 and PTSD screens next session, with agreement of pt. Treatment Goals: Decrease anxiety/traumatic stress symptoms; increase and strengthen regulation/self-care practice; reestablish strong sense of self. Patient Active Problem List Diagnosis Date Noted ??? Current moderate episode of major depressive disorder without prior episode ([facility]) 08/04/2019 Priority: Medium Treatment: Continued kinesthetic and cognitive awareness practices, continued regulation practices;further family history shared. Plan: Allie will continue awareness and self-care practices. Duration of Session: 70 Minutes Follow up appointment: 08/11/19 Electronically signed by MINISTERIO SHIELDS documented in this encounter Plan of Treatment Not on file documented as of this encounter Visit Diagnoses Diagnosis Current moderate episode of major depressive disorder without prior episode ([facility])- Primary documented in this encounter Care Teams Impression Printer Relationship Specialty Start Date End Date Ayden Angulo MD PCP - General 07/28/19 01/28/23 documented as of this encounter
--- OUTSIDE RECORDS SUMMARY | 2024-06-16 00:28 | XMS_ITS | Encounter Summary ---
Author Organization [facility] Address [address] [place] [address] Care Team Providers Care Human Services Supervisor Name Role Phone Ayden Angulo MD Primary Care Provider Unava ilable Encounter Details Date Type Department Care Team (Late st Contact Info) Description 09/05/2019 Historical Results Only [facility] - Main [address] [id number] Ayden Angulo MD Social History Tobacco Use Types Packs/Day Years Used Date Smoking Tobacco: Never Assessed AUDIT-C Answer Date Recorded Frequency of Alcohol [...] Procedure Name Priority Date/Time Associated Diagnosis Comments BACTERIAL CULTURE, URINE Routine 09/05/2019 16:16 EST documented in this encounter Results * BACTERIAL CULTURE, URINE (09/05/2019 16:16 EST) USUAL [facility]OGENITAL [facility]INI [place] [facility] 09/07/2019 11:13 EST [facility] CitrateConcentration 10,000-1 00,000 CFU/ML 09/07/2019 11:13 EST [facility] 09/05/2019 16:1 6 EST 09/05/2019 16:16 EST Comment:VOID Ayden Angulo MD MICROBIOLOGY - GENER AL ORDERABLES Performing Organization Address City/State/[facility] Co de Phone Number [facility] documented in this encounter Visit Diagnoses Not on filedocumented in this encounter Care Teams Human Services Supervisor Relationship Specialty Start Date End Date Ayden Angulo MD PCP - General 07/28/19 01/28/23 documented as of this encounter
--- OUTSIDE RECORDS SUMMARY | 2024-06-16 00:28 | XMS_ITS | Encounter Summary ---
Author Organization [facility] Address [address] [place] [address] Care Team Providers Care Nurse College Name Role Phone Ayden Angulo MD Primary Care Provider Unava ilable Reason for Visit * Reason Comments Other Encounter Details Date Type Department Care Team (Late st Contact Info) Description 10/11/2019 Refill [facility] Family Medicine [facility] [address], [address] [place] [address] Adyen Angulo MD Other Social History Tobacco Use [...] daily. Daily Max: 1 mg 60 Tab 10/19/2019 12/15/2019 diclofenac (VOLTAREN) 75 mg EC tablet TAKE ONE TABLET BY MOUTH TWICE DAILY 60 Tab 10/18/2019 11/16/2019 documented in this encounter Miscellaneous Notes * Telephone Encounter - Preston Steward RN - 10/20/2019 0830 EST Left message on [employer] that script were sent * Telephone Encounter - Leandra Pike - 10/19/2019 1152 EST Clonazepam is not listed on Epic list, but is in eCW. Pended as per eCW sig: JAMEL: 10/03/19 NOV: 10/31/19 * Telephone Encounter - Belkys Linton - 10/19/2019 0856 EST Patient called asking for a refill of Clonazepam, patient has 2 days left of this, will not be ableto go through the weekend. * Telephone Encounter - Preston Steward RN - 10/11/2019 1255 EST To TC patient still has refills for 10/08, ok to fill? documented in this encounter Plan of Treatment Not on file documented as of this encounter Visit Diagnoses Not on filedocumented in this encounter Discontinued Medications Medication Sig Discontinue Reason Start Date End Da te diclofenac (VOLTAREN) 75 mg EC tablet TAKE ONE TABLET BY MOUTH TWICE DAILY 09/07/2019 10/18/2019 documented as of this encounter Care Teams Nurse College Relationship Specialty Start Date End Date Ayden Angulo MD PCP - General 07/28/19 01/28/23 documented as of this encounter
--- OUTSIDE RECORDS SUMMARY | 2024-06-16 00:28 | XMS_ITS | Encounter Summary ---
Author Organization [facility] Address [address] [place] [address] Care Team Providers Care Blender Operator Name Role Phone Ayden Angulo MD Primary Care Provider Unava ilable Reason for Visit * Reason Onset Date Comments Medications Refill 10/11/2019 Hydrocodone, Lorazepam, Nicotine Lozenges Encounter Details Date Type Department Care Team (Late st Contact Info) Description 10/11/2019 Refill [facility] Family Medicine [facility] [address] , [address] [place] [address] Ayden Angulo MD Medications Refill (Hydrocodone, Lorazepam, Nicotine Lozenges) Social History Tobacco Use Types Packs/Day Years [...] 20 lozenges per day. 108 Lozenge 1 10/11/2019 01/23/2020 HYDROcodone-acetaminoph en (NORCO) 5-325 mg tabletIndications:Plant ar fasciitis of right foot Take 1-2 Tabs by mouth every 6 hours as needed for up to 28 days for Pain. Daily Max: 8 Tabs 20 Tab 10/11/2019 11/08/2019 documented in this encounter Miscellaneous Notes * Telephone Encounter - Ksenia Vazquez RN - 10/11/2019 1437 EST Per eCW, previously prescribed hydrocodone-acetaminophen for 3 days supply, #9, 0R. Will clarify with patient * Telephone Encounter - Chula Moreno PA - 10/11/2019 1357 EST Please see if you can figure out how often she is supposed to get t he scripts - this should have afull date and completion date * Telephone Encounter - Leandra Pike - 10/11/2019 1128 EST JAMEL: 10/03/19 NOV: 10/31/19 Hydrocodone was last filled on 08/26/19 Lorazepam was last filled on 10/03/19 (14-day supply); patient will be due on 10/17/19, so order pended to start on that day Commit lozenge last filled on 10/03/19 * Telephone Encounter - Preeti Roberto - 10/11/2019 1058 EST Patient reports she needs refills on Hydrocodone, Lorazepam, and Nicotine Lozenges. Verified pharmacy on file, please advise. documented in this encounter Plan of Treatment Not on file documented as of this encounter Visit Diagnoses Diagnosis Plantar fasciitis of right foot- Primary Plantar fascial fibromatosis documented in this encounter Discontinued Medications Medication Sig Discontinue Reason Start Date End Da te HYDROcodone-acetaminoph en (NORCO) 5-325 mg tabletIndications:Plant ar fasciitis of right foot Take 1-2 Tabs by mouth every 6 hours as needed for Pain. Daily Max: 8 Tabs Reorder 09/05/2019 10/11/2019 nicotine polacrilex (COMMIT) 4 mg lozenge Let one lozenge dissolve in your mouth every hour as needed. Do not exceed 20 lozenges per day. Reorder 10/03/2019 10/11/2019 documented as of this encounter Care Teams Blender Operator Relationship Specialty Start Date End Date Ayden Angulo MD PCP - General 07/28/19 01/28/23 documented as of this encounter
--- OUTSIDE RECORDS SUMMARY | 2024-06-16 00:28 | XMS_ITS | Encounter Summary ---
Author Organization [facility] Address [address] [place] [address] Care Team Providers Care Dude Ranch Manager Name Role Phone Ayden Angulo MD Primary Care Provider Unava ilable Reason for Visit * Reason Onset Date Comments Medications Refill 08/24/2019 Encounter Details Date Type Department Care Team (Late st Contact Info) Description 08/24/2019 Refill [facility] Medicine [facility] [address], [facility] [address] [place] [address] Ayden Angulo MD Medications Refill Social History Tobacco Use Types Packs/Day Years Used Date Smoking Tobacco: Never Assessed Sex and Gender Information Value Date Recorded Sex Assigned at Not on file Gender Identity Female 08/04/2019 13:58 EST Sexual Orientation Not on file documented as of this encounter Ordered Prescriptions Prescription Sig Dispensed Refills Start Date End Da te nicotine (NICODERM CQ) 21 mg/[address] 2 Patches onto the skin every 24 hours for 30 days. 60 Patch 08/24/2019 09/05/2019 documented in this encounter Plan of Treatment Not on file documented as of this encounter Visit Diagnoses Not on filedocumented in this encounter Discontinued Medications Medication Sig Discontinue Reason Start Date End Da te nicotine (NICODERM CQ) 21 mg/[address] 2 Patches onto the skin every 24 hours for 30 days. Reorder 08/22/2019 08/24/2019 documented as of this encounter Care Teams Dude Ranch Manager Relationship Specialty Start Date End Date Ayden Angulo MD PCP - General 07/28/19 01/28/23 documented as of this encounter
--- OUTSIDE RECORDS SUMMARY | 2024-06-16 00:28 | XMS_ITS | Encounter Summary ---
Author Organization [facility] Address [address] [place] [address] Care Team Providers Care In Store Banker Name Role Phone Guicho Monge MD Primary Care Provider [phone] Encounter Details Date Type Department Care Team (Late st Contact Info) Description 03/17/2019 Historical Results Only [facility] Lab - Main [address] [address] Christopher Monk MD [address] [place] [address] Social History Tobacco Use Types Packs/Day Years Used Date Smoking Tobacco: Never Assessed Sex and Gender Information Value Date Recorded Sex Assigned at Not on file Gender Identity Female 08/04/2019 13:58 EST Sexual Orientation Not on file documented as of this encounter Plan of Treatment Not on file documented as of this encounter Procedures Procedure Name Priority Date/Time Associated Diagnosis Comments CYCLIC CITRULLINATED PEPTIDE Routine 03/17/2019 16:15 EDT URINALYSIS/COMPLETE - [facility] Routine 03/17/2019 16:15 EDT PARVOVIRUS B19 AB, IGG, IGM, S Routine 03/17/2019 16:15 EDT C REACTIVE PROTEIN Routine 03/17/2019 16 :15 EDT ANTI NUCLEAR AB (JOE), IFA Routine 03/17/2019 16:15 EDT documented in this encounter Results * PARVOVIRUS B19 AB, IGG, IGM, S (03/17/2019 16:15 EDT) Pathologist [facility] Parvovirus B19 Ab Interpretation SEE BELOW () 03/20/2019 16:55 EDT [facility] Comment: RESULT: Results suggest past infection. ADDITIONAL INFORMATION This test has been modified from the printed circuit board preassembler's instructions. Its performance characteristics were determined by [facility] in a manner consistent with CLIA requirements. This test has not been cleared or approved by the U.S. Food and Drug Administration. Test Performed by: [facility] [place] [address] PARVO IGG - [facility] Positive Negative 03/20/20 19 16:55 EDT [facility] PARVO IGM - [facility] Negative Negative 03/20/20 19 16:55 EDT [facility] 03/17/2019 16:1 5 EDT 03/17/2019 16:16 EDT Narrative [facility] - 03/20/2019 16:55 EDT Does PT Have a Latex Allergy? NO Christopher Monk MD IMMUNOLOGY AND BOOM MCNEIL ORDERABLES [facility] * CYCLIC CITRULLINATED PEPTIDE - [facility] (03/17/2019 16:15 EDT) Pathologist [facility] Cyclic Citrullinated Peptide Ab, S <15.6 () U 03/20/2019 16:55 EDT [facility] Comment: REFERENCE VALUE <20.0 (Negative) Test Performed by: [facility] - [address] [address] *CP = Citrullinated Peptide 03/17/2019 16:1 5 EDT 03/17/2019 16:16 EDT [facility] - 03/20/2019 16:55 EDT Does PT Have a Latex Allergy? NO Christopher Monk MD CHEMISTRY & BLOOD GA S ORDERABLES [facility] * ANTI NUCLEAR AB (JOE), IFA (03/17/2019 16:15 EDT) JOE Interpretation Negative NEGAT 2018 16:55 EDT [facility] Comment: No titer performed, JOE screen is negative. Results were obtained with the [employer]rol[employer] NOVA Lite HEp-2 JOE kit by indirect immunofluorescence. Test performed [place] [address] 03/17/2019 16:1 5 EDT 03/17/2019 16:16 EDT [facility] - 03/20/2019 16:55 EDT Does PT Have a Latex Allergy? NO Christopher Monk MD IMMUNOLOGY AND SEROL OGY ORDERABLES Performing Organization Address City/[facility]/ZIP Co de Phone Number [facility] * (ABNORMAL) C REACTIVE PROTEIN (03/17/2019 16:15 EDT) C-Reactive Protein 22.8(H) <10.0 mg/L 03/17/2019 19:13 EDT [facility] 03/17/2019 16:1 5 EDT 03/17/2019 16:16 EDT [facility] - 03/17/2019 19:13 EDT Does PT Have a Latex Allergy? NO Christopher Monk MD CHEMISTRY & BLOOD GA S ORDERABLES [facility] * URINALYSIS/COMPLETE - [facility] (03/17/2019 16:15 EDT) URINE APPEARANCE - [facility] Turbid CLEAR 03/17/2019 17:31 [facility] URINE AMORPH CRYSTAL - [facility] MANY 03/17/2019 17:47 [facility] URINE BACTERIA - [facility] NEG 03/17/2019 17:47 [facility] URINE BILIRUBIN - DIPSTICK - [facility] 1+ NEGATIVE 03/17/2019 17:31 [facility] Comment: Unable to confirm positive urine bilirubin. If clinical correlation is inconsistent, consider serum bilirubin. URINE BLOOD - [facility] 2+ NEG 03/17/2019 17:31 [facility] URINE COLOR - [facility] Yellow YELLOW 03/17/2019 17:31 [facility] URINE GLUCOSE - DIP[place] - [facility] Negative NEGATIVE 03/17/2019 17:31 [facility] URINE KETONE - [facility] Negative NEGATIVE 03/17/2019 17:31 [facility] URINE LEUK ESTERASE - [facility] Negative NEG 03/17/2019 17:31 [facility] URINE NITRITE - D[place] - [facility] Negative NEG 03/17/2019 17:31 [facility] URINE PH - [facility] 5.5 4.0 - 8.0 9 17:31 [facility] URINE PROTEIN - DIPST[place] - [facility] Negative NEG 03/17/2019 17:31 [facility] URINE RBC - [facility] RARE rbc/hpf 03/17/20 19 17:47 [facility] URINE SPECIFIC GRAVITY - [facility] >=1.030 1.001 - 1.035 03/17/2019 17:31 [facility] URINE SQUAMOUS CELLS - [facility] FEW NEG #/hpf 03/17/2019 17:47 [facility] URINE UROBILINOGEN - DIP[place] - [facility] 0.2 0.2 - 1.0 03/17/2019 17:31 [facility] URINE WBC - [facility] NEG NEG wbc/hpf 019 17:47 [facility] 03/17/2019 16:1 5 EDT 03/17/2019 16:16 EDT Narrative [facility] - 03/17/2019 17:47 EDT Does PT Have a Latex Allergy? NO Christopher Monk MD CHEMISTRY & BLOOD GA S ORDERABLES [facility] documented in this encounter Visit Diagnoses Not on filedocumented in this encounter Care Teams In Store Banker Relationship Specialty Start Date End Date Guicho Monge MD PCP - General 07/27/15 07/27/19 documented as of this encounter
--- OUTSIDE RECORDS SUMMARY | 2024-06-16 00:28 | XMS_ITS | Encounter Summary ---
Author Organization [facility] Address [address] [place] [address] Care Team Providers Care County Manager Name Role Phone Guicho Monge MD Primary Care Provider [phone] Encounter Details Date Type Department Care Team (Late st Contact Info) Description 12/22/[address] [facility] [place] [facility] Lab - Main [address] [address] Ayden Angulo MD Social History Tobacco Use [...] Procedure Name Priority Date/Time Associated Diagnosis Comments C REACTIVE PROTEIN Routine 12/22/2018 17 :02 EDT C REACTIVE PROTEIN Routine 12/22/2018 17 :02 EDT documented in this encounter Results * (ABNORMAL) C REACTIVE PROTEIN (12/22/2018 17:02 EDT) C-Reactive Protein 22.3(H) <10.0 mg/L 12/22/2018 18:43 EDT [facility] 12/22/2018 17:0 2 EDT 12/22/2018 18:26 EDT Ayden Angulo MD CHEMISTRY & BLOOD GA S ORDERABLES [facility] * (ABNORMAL) C REACTIVE PROTEIN (12/22/2018 17:02 EDT) SED RATE - [place] [facility] 33(H) 1 - 20 mm/hr 12/22/2018 19:33 EDT [facility] 12/22/2018 17:0 2 EDT 12/22/2018 18:26 EDT Ayden Angulo MD CHEMISTRY & BLOOD GA S ORDERABLES Performing Organization Address City/[facility]/ZIP Co de Phone Number [facility] documented in this encounter Visit Diagnoses Not on filedocumented in this encounter Care Teams County Manager Relationship Specialty Start Date End Date Guicho Monge MD PCP - General 07/27/15 07/27/19 documented as of this encounter
--- OUTSIDE RECORDS SUMMARY | 2024-06-16 00:28 | XMS_ITS | Encounter Summary ---
Author Organization [facility] Address [address] [place] [address] Care Team Providers Care Colorer Machine Name Role Phone Ayden Angulo MD Primary Care Provider Unava ilable Reason for Visit * Reason Onset Date Comments Follow-up 08/11/201908/11 Patient we nt to [facility] ED Encounter Details Date Type Department Care Team (Late st Contact Info) Description 08/11/2019 Telephone [facility] - [facility] Family Medicine [facility] [address] [place] [address] Ayden Angulo MD Follow-up (08/11 Patient went to [facility] ED) Social History Tobacco Use Types Packs/Day Years Used Date Smoking Tobacco: Never Assessed Sex and Gender Information Value Date Recorded Sex Assigned at Not on file Gender Identity Female 08/04/2019 13:58 EST Sexual Orientation Not on file documented as of this encounter Miscellaneous Notes * Telephone Encounter - Preston Steward RN - 08/11/2019 1440 EST Called patient and made aware to send us result of the MRI scan and we will from there. Patient able to understand. Also informed to call us Wednesday or Wednesday to check in. Patient esequiel to understand. * Telephone Encounter - Ayden Angulo MD - 08/11/2019 1418 EST Call back. Let us know if mri is normal for the next steps * Telephone Encounter - Preston Steward, RN - 08/11/2019 1359 EST Te to TC, CT was negative for intracranial bleed, diagnosis is likely migraine headaches, Mri scheduled tomorrow. For work out for CVA or TIA d/c with aspirin. * Telephone Encounter - Preeti Roberto - 08/11/2019 1155 EST Received notes from [facility], scanned to streaming media specialist and brought back to nursing for review. * Telephone Encounter - Preeti Roberto - 08/11/2019 1132 EST Received a call from Patient's sister, not on ROSALBA so I explained that I could take info but couldn't give any info/call back. Sister understood this, she works for [employer]. Pt was seen today @ [facility], requested a coy of ED notes they should be faxed over soon. 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 Pt reported to be back @ home resting at the moment. [facility] did book an MRI for tomorrow for Pt. Pt stated her vision is being effected as well.Pt's sister stated Pt knows she was calling out office and Pt was okay with this, open to being evaluated. Please advise. documented in this encounter Plan of Treatment Not on file documented as of this encounter Visit Diagnoses Not on filedocumented in this encounter Care Teams Colorer Machine Relationship Specialty Start Date End Date Ayden Angulo MD PCP - General 07/28/19 01/28/23 documented as of this encounter
--- OUTSIDE RECORDS SUMMARY | 2024-06-16 00:28 | XMS_ITS | Encounter Summary ---
Author Organization [facility] Address [address] [place] [address] Care Team Providers Care Customer Sales Representative Name Role Phone Unavailable Primary Care Provider Unavailabl e Encounter Details Date Type Department Care Team (Late st Contact Info) Description 12/29/2006 Before PRISM Converted Visit (Maple) [facility] - Maple conversion [address] [place] [address] Jose J Ramos MD [address] [place] [phone] Social History Tobacco Use Types Packs/Day Years Used Date Smoking Tobacco: Never Assessed Sex and Gender Information Value Date Recorded Sex Assigned at Not on file Gender Identity Female 08/04/2019 13:58 EST Sexual Orientation Not on file documented as of this encounter Progress Notes * Jose J Ramos MD - 07/27/2009 2253 EST [facility]/FOLLOWUP NOTE - 01/27/2007 FOLLOW UP TONSILLECTOMY SUBJECTIVE The patient continues to complain of throat pain, more on the right side. She was doing better, gradually getting better, but recently has had worsening of her symptoms. This coincides with change inher diet, increasing use of carbonated beverages, burping, burning, and stinging throat pain. OBJECTIVE Oral cavity and posterior pharynx is clear with both tonsillar fossa appear to be healing well. Slightly delayed on the right but no evidence of infection or bleeding. IMPRESSION Laryngopharyngeal reflux delaying recovery and contributing to throat pain and referred otalgia. PLAN Antireflux regimen including dietary changes. Will also start patient on proton pump inhibitor. Prescription Nexium or Prevacid was written for the patient. Signed by Jose J Ramos MD 02/02/2007 13:58 Christian Lazcano MD Jose J Ramos MD P Job ID P/mld Doc ID [id number] cc: * Jose J Ramos MD - 07/26/20092001 EST [facility]ESS/FOLLOWUP NOTE - 01/11/2007 CHIEF COMPLAINT Followup tonsillectomy. SUBJECTIVE Patient complaining of bleeding from the right tonsil. OBJECTIVE Oral exam reveals a small clot in the right mid inferior tonsillar fossa. Although the patient was very anxious, she was able to comply. Topical local anesthesia was applied. The clot was removed andthe area was cauterized with silver nitrate. The patient tolerated the procedure well. ASSESSMENT Right posttonsillectomy bleed. Status post cautery. PLAN Patient is to watch her activity and return if there is any further bleeding. Signed by Jose J Ramos MD 01/12/2007 15:39 Christian Lazcano MD Jose J Ramos MD P Job ID [id number] P/wlp Doc ID [id number] cc: * Jose J Ramos MD - 07/25/2009 0313 EST [facility] PROGRESS/FOLLOWUP NOTE - 01/04/2007 CHIEF COMPLAINT Followup tonsillectomy. SUBJECTIVE Patient is doing well. Continues to be on a soft diet, but is improved from her previous visit. OBJECTIVE Both tonsillar fossae appear to be healing well. No clot, bleeding, or infection. No cervical adenopathy. Chest is clear to auscultation. ASSESSMENT Doing well status post tonsillectomy. PLAN Follow up with ENT p.r.n. Signed by Jose J Ramos MD 01/12/2007 15:36 Christian Lazcano MD Jose J Ramos MD P Job ID A/wlp Doc ID [id number] cc: * Jose J Ramos MD - 07/24/2009 0341 EST [facility] PROGRESS/FOLLOWUP NOTE - 01/18/2007 CHIEF COMPLAINT Follow up tonsillectomy. SUBJECTIVE Patient is doing well. No problems. Eating well. OBJECTIVE Both tonsillar fossae appear to be healing well. No clot, infection, or bleeding. No cervical adenopathy. Chest is clear to auscultation. ASSESSMENT Doing well status post tonsillectomy. PLAN Follow up with ENT p.r.n. Signed by Jose J Ramos MD 01/25/2007 09:07 Christian Lazcano MD Jose J Ramos MD P Job ID [id number] P/wl Doc ID [id number] cc: * Jose J Ramos MD - 07/24/2009 0229 EST [facility] PROGRESS/FOLLOWUP NOTE - 12/29/2006 CHIEF COMPLAINT Followup tonsillectomy SUBJECTIVE Patient is doing well. Did develop small amounts of blood following her tonsillectomy at approximately one week out but this has cleared and has not had any further bleeding. OBJECTIVE Physical exam reveals exudate in both tonsillar fossa. No evidence of clot or bleeding. No previousbleeding sites or active bleeding site is identified. Both tonsillar fossae were suctioned. IMPRESSION Mild postop bleeding with no identifiable bleeding site. PLAN Patient will up with ENT p.r.n. especially if there is any recurrent bleeding. Patient was also started on antibiotics to help decrease any superficial infection. She will otherwise follow up on regularly scheduled from appointment. Signed by Jose J Ramos MD 01/04/2007 13:57 Christian Lazcano MD Jose J Ramos MD P Job ID [id number] A/humberto Doc ID [id number] cc: 5:54 P Job ID [id number] A/humberto Doc ID [id number] cc: documented in this encounter Plan of Treatment Not on file documented as of this encounter Visit Diagnoses Not on filedocumented in this encounter
--- OUTSIDE RECORDS SUMMARY | 2024-06-16 00:28 | XMS_ITS | Encounter Summary ---
Author Organization [facility] Address [address] [place] [address] Care Team Providers Care Ssds Mk 2 Advanced Operator Name Role Phone Ayden Angulo MD Primary Care Provider Unadanilo ildebi Encounter Details Date Type Department Care Team (Late st Contact Info) Description 08/25/2019 14:00 EST Community Health Team [facility] [place] [facility] Adult Primary Care - [address] [address] t Behavioral Health, [facility] Adult Current moderate episode of major depressive disorder without prior episode ([facility]) (Primary Dx) Social History Tobacco Use Types Packs/Day Years Used Date Smoking Tobacco: Never Assessed Sex and Gender Information Value Date Recorded Sex Assigned at Not on file Gender Identity Female 08/04/2019 13:58 EST Sexual Orientation Not on file documented as of this encounter Progress Notes * Ministerio Shields - 08/25/2019 1400 EST [facility] Progress Note Date of Service: 08/25/2019 Primary Care Provider: Ayden Angulo Present Patient, Spouse/Partner HPI Subjective: (updates from last session) Allie presented on time for her scheduled session with her partner Enrique after a 2 week break since having a stroke. Allie presented with strong eye contact and clarity around the lessons she is learning since this stroke, her gratitude and pride in taking strong care of herself during this time.This includes furthering her trauma recovery work, regulation/stress management, communication patterns and subsequently quitting smoking, starting to lose weight. Objective: Appearance: Appropriate Behavior: Appropriate Thought Process: Coherent Thought Content: Appropriate Risk: No suicidal, homicidal or violent ideations, No plan and No intent Speech: Normal Mood: Anxious Affect: Broad, incongruent Judgement: Good Insight: Appropriate Cognition: Normal Assessment: No primary diagnosis found. Continue to assess for chronic PTSD. Treatment Goals: Support smoking cessation, trauma recovery/power and control work. Patient Active Problem List Diagnosis Date Noted ??? Current moderate episode of major depressive disorder without prior episode ([facility]) 08/04/2019 Priority: Medium Treatment: Continued body/movement based cognitive behavioral trauma recovery work. Plan: Allie will continue regulation practice, adding expressive arts/movement and exercise as explored in her session today, and will return next week. Duration of Session: 60 Minutes Follow up appointment: 09/01/2019 Electronically signed by MINISTERIO SHIELDS documented in this encounter Plan of Treatment Not on file documented as of this encounter Visit Diagnoses Diagnosis Current moderate episode of major depressive disorder without prior episode ([facility] Primary documented in this encounter Care Teams Ssds Mk 2 Advanced Operator Relationship Specialty Start Date End Date Ayden Angulo MD PCP - General 07/28/19 01/28/23 documented as of this encounter
--- OUTSIDE RECORDS SUMMARY | 2024-06-16 00:28 | XMS_ITS | Encounter Summary ---
Author Organization [facility] Address [address] [place] [address] Care Team Providers Care Store Warehouse Associate Name Role Phone Ayden Angulo MD Primary Care Provider Unava ilable Reason for Visit * Reason Onset Date Comments Medications Refill 08/18/2019 refill clonaz epam Encounter Details Date Type Department Care Team (Late st Contact Info) Description 08/18/2019 Refill [facility] Medicine [facility] [address] [place] [address] Ayden Angulo MD Medications Refill (refill clonazepam) Social History Tobacco Use Types Packs/Day Years [...] (Anxiety). Daily Max: 1 mg 60 Tab 08/18/2019 09/17/2019 documented in this encounter Miscellaneous Notes * Telephone Encounter - Lily Murguia PA - 08/18/2019 1326 EST Sent in. Pls let pt know. * Telephone Encounter - Debbie Linda LPN - 08/18/2019 1019 EST Per [facility], pt last filled order 03/24/19 for a 30 day supply. Due for refill, order pended as most recently written, to provider to send in. documented in this encounter Plan of Treatment Not on file documented as of this encounter Visit Diagnoses Not on filedocumented in this encounter Care Teams Store Warehouse Associate Relationship Specialty Start Date End Date Ayden Angulo MD PCP - General 07/28/19 01/28/23 documented as of this encounter
--- OUTSIDE RECORDS SUMMARY | 2024-06-16 00:28 | XMS_ITS | Encounter Summary ---
Author Organization [facility] Address [address] [place] [address] Care Team Providers Care Toilet And Laundry Soap Supervisor Name Role Phone Ayden Angulo MD Primary Care Provider Mia Mcclendon DO Primary Care Provider + Javier Valenzuela RD Unavailable [phone] Reason for Visit * Reason Comments Other Encounter Details Date Type Department Care Team (Late st Contact Info) Description 09/07/2019 Refill [facility] Family Medicine [facility] [address] [place], [facility] [address] [place], [place] [id number] Ayden Angulo MD Other Social History Tobacco [...] TABLET BY MOUTH TWICE DAILY 60 Tab 1 09/07/2019 10/18/2019 documented in this encounter Miscellaneous Notes * Telephone Encounter - Lindy Champion - 09/07/2019 0858 EST Last filled 04/20/19 30 with 2 refills documented in this encounter Plan of Treatment Not on file documented as of this encounter Visit Diagnoses Not on filedocumented in this encounter Care Teams Toilet And Laundry Soap Supervisor Relationship Specialty Start Date End Date Ayden Angulo MD PCP - General 07/28/19 01/28/23 Mia Alexander DO [address] [place] [phone] PCP - General Family Medicine - Primary Care 01/29/[address] [place] [phone] Voice Network Administrator (CDE) Diabetes Education 11/29/23 11/29/23 documented as of this encounter
--- OUTSIDE RECORDS SUMMARY | 2024-06-16 00:28 | XMS_ITS | Encounter Summary ---
Author Organization [facility] Address [address] [place] [address] Care Team Providers Care Scrub Woman Name Role Phone Guicho Monge MD Primary Care Provider [phone] Encounter Details Date Type Department Care Team (Late st Contact Info) Description 10/24/2018 Historical Results Only [facility] - Main [place] [address] [place], [place] [id number] Kalya Ambriz, SENIOR REVENUE ACCOUNTANT [address] [phone] Social History Tobacco Use Types Packs/Day Years Used Date Smoking Tobacco: Never Assessed Sex and Gender Information Value Date Recorded Sex Assigned at Not on file Gender Identity Female 08/04/2019 13:58 EST Sexual Orientation Not on file documented as of this encounter Plan of Treatment Not on file documented as of this encounter Procedures Procedure Name Priority Date/Time Associated Diagnosis Comments RHEUMATOID SCREEN/TITRE Routine 10/24/2018 10:55 EST COMPLETE BLOOD COUNT WITH DIFFERENTIAL (AUTO) Routine 10/24/2018 10:55 EST QUANTIFERON TB GOLD PLUS Routine 10/24/2018 10:55 EST C REACTIVE PROTEIN Routine 10/24/2018 10 :55 EST C REACTIVE PROTEIN Routine 10/24/2018 10 :55 EST documented in this encounter Results * (ABNORMAL) C REACTIVE PROTEIN (10/24/2018 10:55 EST) [facility] C-Reactive Protein 79.9(H) <10.0 mg/L 10/24/2018 12:08 [facility] 10/24/2018 10:5 5 EST 10/24/2018 10:55 EST Narrative [facility] - 10/24/2018 12:08 EST Does PT Have a Latex Allergy? NO Kayla Ambriz SENIOR REVENUE ACCOUNTANT CHEMISTRY & B LOOD GAS ORDERABLES [facility] * (ABNORMAL) C REACTIVE PROTEIN (10/24/2018 10:55 EST) [facility] SED RATE - [facility] 64(H) 1 - 17 mm/hr 10/24/2018 12:12 [facility] 10/24/2018 10:5 5 EST 10/24/2018 10:55 EST Narrative [facility] - 10/24/2018 12:12 EST Does PT Have a Latex Allergy? NO Kayla Diaz-Mary SENIOR REVENUE ACCOUNTANT CHEMISTRY & B LOOD GAS ORDERABLES [facility] * (ABNORMAL) COMPLETE BLOOD COUNT WITH DIFFERENTIAL (AUTO) (10/24/2018 10:55 EST) [facility] ABSOLUTE NEUTROPHIL COUN - [facility] 5.9 2.2 - 8.85 10e3/uL 10/24/2018 11:39 [facility] BASO # - [facility] 0.02 0.01 - 0.11 10e/uL 10/24/2018 11:39 [facility] BASO % - [facility] 0 0 - 2 % 10/24/2018 11:39 [facility] EOS # - [facility] 0.07 0.03 - 0.61 10e3/ul 10/24/2018 11:39 [facility] EOS % - [facility] 1 0 - 5 % 10/24/2018 11:39 [facility] GRAN % - [facility] 65.1 40 - 80 % 10/24/2018 11:39 [facility] HEMATOCRIT - [facility] 34.9 34.9 - 44.4 % 10/24/2018 11:39 [facility] HEMOGLOBIN - [facility] 11.0(L) 11.6 - 15.2 g/dl 10/24/2018 11:39 [facility] IG# - [facility] 0.03 0 - 0.7 10e3/uL 10/24/2018 11:39 [facility] IG% - [facility] 0.3 0 - 0.9 % 10/24/2018 11:39 [facility] LYMPH # - [facility] 2.3 1.09 - 3.3 10e3/ul 10/24/2018 11:39 [facility] LYMPH% - [facility] 25.2 20 - 40 % 10/24/2018 11:39 [facility] MEAN CORPUSCULAR HGB - [facility] 27.4 26.7 - 33.3 pg 10/24/2018 11:39 [facility] MEAN CORPUSCULAR HGB CONC - [facility] 31.5(L) 32.1 - 35.9 g/dL 10/24/2018 11:39 [facility] MEAN CELL VOLUME - CV 86.8 81 - 98 fl 10/24/2018 11:39 [facility] MONO # - [facility] 0.8 0.1 - 0.8 10e3/uL 10/24/2018 11:39 [facility] MONO% - [facility] 8.4 0 - 12 % 10/24/2018 11:39 [facility] PLATELET COUNT 559(H) 141 - 377 10e3/ul 10/24/2018 11:39 [facility] RED BLOOD COUNT - [facility] 4.02 3.86 - 5.04 10e3/ul 10/24/2018 11:39 [facility] RED CELL DISTRI WIDTH - [facility] 13.0 <14.7 % 10/24/2018 11:39 [facility] WHITE BLOOD COUNT - [facility] 9.1 4.0 - 12.4 10e3/ul 10/24/2018 11:39 EST [facility] 10/24/2018 10:5 5 EST 10/24/2018 10:55 EST Narrative [facility] - 10/24/2018 12:12 EST Does PT Have a Latex Allergy? NO Kayla Ambriz NP HEMATOLOGY & PF4 ORDERABLES Performing Organization Address City/[facility]/ZIP Co de Phone Number [facility] * QUANTIFERON TB GOLD PLUS (10/24/2018 10:55 EST) [facility] Quantiferon Interpretation Negative NEGAT 10/26/2018 15:19 EST [facility] Comment: Reference Range: Negative No interferon-gamma response to M. tuberculosis antigens was detected. Infection with M. tuberculosis is unlikely. A single negative result does not exclude infection with M. tuberculosis. In patients at high risk for M. tuberculosis infection, a second test should be considered in accordance with the 2017 ATS/IDSA/CDC Clinical Practive Guidelines for Diagnosis of Tuberculosis in Adults and Children [Lewinsohn DM et. al. Clin. Infect. Dis. 2017:64(2):111-115]. Results were obtained with the [employer] QuantiFERON-TB Gold Plus KARLY. TB1 Ag minus Nil 0.00 () IU/mL 10/26/19 19 15:19 [facility] TB2 Ag minus Nil 0.00 () IU/mL 10/26/19 19 15:19 EST [facility] Comment: Test performed [place] [address] 10/24/2018 10:5 5 EST 10/24/2018 10:55 EST Narrative [facility] - 10/26/2018 15:19 EST Does PT Have a Latex Allergy? NO Kayla Ambriz NP CHEMISTRY & B LOOD GAS ORDERABLES [facility] * RHEUMATOID SCREEN/TITRE - [facility] (10/24/2018 10:55 EST) RHEUMATOID FACTOR SCREEN - [facility] NEG NEG 10/24/2018 12:11 EST [facility] 10/24/2018 10:5 5 EST 10/24/2018 10:55 EST Narrative [facility] - 10/24/2018 12:11 EST Does PT Have a Latex Allergy? NO Kayla Ambirz SENIOR REVENUE ACCOUNTANT CHEMISTRY & B LOOD GAS ORDERABLES [facility] documented in this encounter Visit Diagnoses Not on filedocumented in this encounter Care Teams Scrub Woman Relationship Specialty Start Date End Date Guicho Monge MD PCP - General 07/27/15 07/27/19 documented as of this encounter
--- OUTSIDE RECORDS SUMMARY | 2024-06-16 00:28 | XMS_ITS | Encounter Summary ---
Author Organization [facility] Address [address] [place] [address] Care Team Providers Care Title I Coordinator Name Role Phone Ayden Angulo MD Primary Care Provider Unava ilable Reason for Visit * Reason Onset Date Comments Appointment Related 09/27/2019 Encounter Details Date Type Department Care Team (Late st Contact Info) Description 09/27/2019 Telephone [facility] Adult Primary Care - [place] [address] [place] [address] Sasha Shields [address] [facility] [address] [place], [place] [id number] Appointment Related Social History Tobacco Use Types Packs/Day Years Used Date Smoking Tobacco: Never Assessed Sex and Gender Information Value Date Recorded Sex Assigned at Not on file Gender Identity Female 08/04/2019 13:58 EST Sexual Orientation Not on file documented as of this encounter Miscellaneous Notes * Telephone Encounter - Sasha Shields - 09/27/2019 0946 EST Pt called to cancel for today, to 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 Confirmed next scheduled appt 10/04/2019 @Christofer @2:00. documented in this encounter Plan of Treatment Not on file documented as of this encounter Visit Diagnoses Not on filedocumented in this encounter Care Teams Title I Coordinator Relationship Specialty Start Date End Date Ayden Angulo MD PCP - General 07/28/19 01/28/23 documented as of this encounter
--- OUTSIDE RECORDS SUMMARY | 2024-06-16 00:28 | XMS_ITS | Encounter Summary ---
Author Organization [facility] Address [address] [place] [address] Care Team Providers Care Roller Printing Supervisor Name Role Phone Guicho Monge MD Primary Care Provider [phone] Encounter Details Date Type Department Care Team (Late st Contact Info) Description 10/26/2016 Historical Results Only [facility] Lab - Main [address] [address] Ayden Angulo MD Social History Tobacco Use [...] Procedure Name Priority Date/Time Associated Diagnosis Comments TSH Routine 10/26/2016 14:42 EST HEMOGLOBIN A1C Routine 10/26/2016 14:42 EST GLUCOSE, SERUM Routine 10/26/2016 14:42 EST documented in this encounter Results * TSH (10/26/2016 14:42 EST) Pathologist [facility] [place] THYROID STIM HORMONE - [facility] 3.20 0.35 - 5.50 uIU/mL 10/26/2016 17:00 EST [facility] 10/26/2016 14:4 2 EST 10/26/2016 16:13 EST Ayden Angulo MD CHEMISTRY & BLOOD GA S ORDERABLES [facility] * GLUCOSE, SERUM (10/26/2016 14:42 EST) Pathologist [facility] [place] GLUCOSE - [facility] 82 70 - 100 mg/dL 10/26/2016 16:42 EST [facility] 10/26/2016 14:4 2 EST 10/26/2016 16:13 EST Ayden Angulo MD CHEMISTRY & BLOOD GA S ORDERABLES [facility] * HEMOGLOBIN A1C (10/26/2016 14:42 EST) [facility] Hemoglobin A1c 5.9 4.0 - 6.0 % 10/26/2016 21:55 EST [facility] Est Avg Glucose 123 mg/dL 7 21:55 EST [facility] 10/26/2016 14:4 2 EST 10/26/2016 16:13 EST Ayden Angulo MD CHEMISTRY & BLOOD GA S ORDERABLES [facility] documented in this encounter Visit Diagnoses Not on filedocumented in this encounter Care Teams Roller Printing Supervisor Relationship Specialty Start Date End Date Guicho Monge MD PCP - General 07/27/15 07/27/19 documented as of this encounter
--- OUTSIDE RECORDS SUMMARY | 2024-06-16 00:28 | XMS_ITS | Encounter Summary ---
Author Organization [facility] Address [address] [place] [address] Care Team Providers Care Investigation Manager Name Role Phone Ayden Angulo MD Primary Care Provider Unava ilable Reason for Visit * Reason Onset Date Comments Follow-up 08/16/2019 see note Encounter Details Date Type Department Care Team (Late st Contact Info) Description 08/16/2019 Telephone [facility] Family Medicine [facility] [address], [address] [place], [place] [address] Sasha Shields [address] [place], [place] [phone] Follow-up (see note) Social History Tobacco Use Types Packs/Day Years Used Date Smoking Tobacco: Never Assessed Sex and Gender Information Value Date Recorded Sex Assigned at Not on file Gender Identity Female 08/04/2019 13:58 EST Sexual Orientation Not on file documented as of this encounter Miscellaneous Notes * Telephone Encounter - Sasha Shields - 08/16/2019 6265 EST F/u call to check in about hospital admission/stroke. Scheduled to meet 08/25/19. documented in this encounter Plan of Treatment Not on file documented as of this encounter Visit Diagnoses Not on filedocumented in this encounter Care Teams Investigation Manager Relationship Specialty Start Date End Date Ayden Angulo MD PCP - General 07/28/19 01/28/23 documented as of this encounter
--- OUTSIDE RECORDS SUMMARY | 2024-06-16 00:28 | XMS_ITS | Encounter Summary ---
Author Organization [facility] Address [address] [place] [address] Care Team Providers Care Asphalt Engineer Name Role Phone Ayden Angulo MD Primary Care Provider Unadanilo ildebi Encounter Details Date Type Department Care Team (Late st Contact Info) Description 08/16/2019 Orders Only [facility] Family Medicine [facility] [address], [facility] [address] [place], [place] [address] Janie Melo RN Social History Tobacco Use Types Packs/Day Years [...] 24 hours for 30 days. 60 Patch 08/22/2019 08/24/2019 aspirin 81 mg EC tablet Take 1 Tab by mouth daily. 100 Tab 4 08/22/2019 02/07/2021 documented in this encounter Plan of Treatment Not on file documented as of this encounter Visit Diagnoses Not on filedocumented in this encounter Discontinued Medications Medication Sig Discontinue Reason Start Date End Da te aspirin chewable 81 mg tablet Take 81 mg by mouth. 08/12/2019 08/22/2019 nicotine (NICODERM CQ) 21 mg/[address] 42 mg onto the skin. Reorder 08/13/2019 08/22/2019 documented as of this encounter Care Teams Asphalt Engineer Relationship Specialty Start Date End Date Ayden Angulo MD PCP - General 07/28/19 01/28/23 documented as of this encounter
--- NOTE | 2024-06-16 00:35 | ED.GENADUL_ITS ---
Discharge Plan Disposition Patient Disposition: Home Condition: Good Discharge Details Clinical Impression: Pain, dental Primary Care Provider: Sasha Ambriz ED Provider: Sasha Hernández Home Meds and New Rx's Prescriptions: New amoxicillin-pot clavulanate 875-125 mg tablet 1 tab PO Q12H Qty: 19 0RF Discharge Instructions Instructions: Dental Pain ED Additional Instructions: Tylenol and ibuprofen at home for pain; follow the directions on the bottle. Take the antibiotic twice a day for the next 10 days. Call a dentist today to schedule an appointment for as soon as possible. Call you primary care doctor today to schedule an appointment to be seen within the next week to followup on your visit here. Return to the emergency department for new or worsening symptoms including fever, facial swelling, difficulty swallowing, or if you have any other concerns. Stand Alone Forms: Work Release Referrals: Sasha Ambriz [Primary Care Provider] - [facility] General Mode of arrival: ambulatory . Date/Time Provider Initiated Documentation: 06/16/24 00:11 . Limitations to Documentation: no limitations . Information obtained by: patient . HPI Narrative: 43yo F with hx DM presenting with dental pain. Has had two days of right lower posterior molar pain. Similar symptoms in the past with dental infections. Has noted some whitish discharge from the base of the tooth with foul taste. No fevers, chills, nausea, vomiting, difficulty with secretions, neck pain, difficulty eating, vocal changes, or other concerns. Related Data Home Medications ?Medication ?Instructions ?Recorded ?Confirmed amoxicillin 875 mg-potassium 1 tab PO Q12H #19 tabs 06/16/24 clavulanate 125 mg tablet Previous Rx's ?Medication ?Instructions ?Recorded amoxicillin 875 mg-potassium 1 tab PO Q12H #19 tabs 06/16/24 clavulanate 125 mg tablet Allergies Allergy/AdvReac Type Severity Reaction Status Date / Time erthromycin Allergy Intermediate burning Uncoded 06/16/24 00:15 General Stated Complaint: DentalOral JAMEY: 4 Review of Systems Narrative: see HPI Exam Narrative Exam Narrative: General: Alert, well appearing, well nourished, in no acute distress. Head: Normocephalic, atraumatic Neck: Trachea midline, ?Neck supple. No anterior neck tenderness. ENT: ?No trismus. MMM.? No oropharygeal lesions or exudate. No evident intraoral abscess. #31 tender to percussion. Cardiac: ?RRR, no murmurs appreciated Resp: No respiratory distress. Speaking in full sentences. Managing secretions. Abd: ?Non-distended, nontender Extremities: ?No deformities.? No peripheral edema. Neurologic: GCS 15. ? Moves all extremities freely against gravity Course Vital Signs Vital signs: Vital Signs Temperature 36.3 C L 06/16/24 00:08 Pulse 84 06/16/24 00:08 Respiratory Rate 16 06/16/24 00:08 Blood Pressure 142/79 H 06/16/24 00:08 Pulse Oximetry 95 06/16/24 00:08 Temperature 36.3 C L 06/16/24 00:13 Temperature Source Temporal Artery Scan 06/16/24 00:13 Pulse 84 06/16/24 00:13 Respiratory Rate 16 06/16/24 00:13 Respiratory Effort Normal, Non-Labored 06/16/24 00:13 Blood Pressure 142/79 H 06/16/24 00:13 Blood Pressure Position Sitting 06/16/24 00:13 Pulse Oximetry 95 06/16/24 00:13 Oxygen Delivery Method Room Air 06/16/24 00:13 Oxygen Flow Rate 0 06/16/24 00:13 Pain Level 7 06/16/24 00:14 Medical Decision Making 43yo F with hx DM presenting with two days of right lower posterior molar pain with some foul tasting whitish discharge from the base of the tooth. Vital signs reassuring on arrival, systemically well. Physical exam with no clear intraoral abscess, #31 is quite tender to percusion. History and exam not concerning for sepsis, buccal space infection, Diallo's, deeps space neck infection; would not get labs or CT imaging. No obvious infection on exam however given report of discharge (? spontaneously drained abscess) will treat with 10 day course of amox-clauv. Advised PCP and dental followup. Discharged home; discharge instructions and return precautions were reviewed with patient who verbalized understanding. All questions were answered and she is in full agreement with the plan. Quality:SDOH Health Related Social Needs: No Data to Display PFSH All Active Problems (Updated 06/16/24 @ 00:32 by Sasha Hernández MD) Pain, dental (Acute) Social History Smoking/Tobacco Use Status: Current every day Tobacco Type: cigarettes Smoking risk assessment performed?: Yes Alcohol Intake: current Alcohol Intake frequency: holidays/special occasions only Drug use: Never Substance use type: does not use Housing: house Do you feel safe at home: Yes Do you feel safe in your relationship?: Yes
[2024-06-16] MEDS: Ibuprofen 600 MG TAB PO (00:39)
[2024-06-16] MEDS: Amoxicillin 875/Clav. 125 TAB PO (00:39)
== END 2024-06-16 00:39 | disposition home or self-care (01) ==
PROVIDERS: Emergency Provider Student in an Organized Health Care Education/Training Program; PCP Nurse Practitioner Family
DX: K08.89 Other specified disorders of teeth and supporting structures (principal); F17.210 Nicotine dependence, cigarettes, uncomplicated
CPT/HCPCS: 99283

== ENCOUNTER 2025-04-25 18:33 | Outpatient (REF) | payer MEDICARE, SELFPAY ==
[2025-04-25 20:52] LABS: Abs Immature Grans 0.04 10^3/uL (0.0-0.06); HCT 40.5 % (36.0-46.0); HGB 13.5 g/dL (11.2-15.7); Immature Grans % 0.4 %; MCH 28.1 pg (27.0-33.0); MCHC 33.3 % (32.0-36.0); MCV 84 fL (80-95); MPV 9.9 fL (8.0-11.0); Platelet Count 387 10^3/uL (130-400); RBC 4.80 10^6/uL (3.93-5.22); RDW 13.5 % (11.7-14.6); RDW-SD 42.0 fL; WBC 11.16 10^3/uL (4.4-10.8)
[2025-04-25 20:54] LABS: ESR 36 mm/hr (0-20)
[2025-04-25 21:19] LABS: COMMENT (LAB VIEW ONLY) 430.00 mg/dL; Microalb ug/mg Crea 5.1 ug/mg Cr
[2025-04-25 21:26] LABS: ALT 41 U/L (14-59); AST 24 U/L (15-37); Albumin 4.2 g/dL (3.4-5.0); Alkaline Phosphatase 139 U/L (46-116); Anion Gap 9.0 mmol/L (3-11); BUN 26 mg/dL (7-18); Bilirubin, Total 0.4 mg/dL (0.2-1.0); CO2 28.0 mmol/L (21.0-32.0); Calcium 9.3 mg/dL (8.5-10.1); Calculated LDL 39 mg/dL (<100); Chloride 103 mmol/L (98-107); Cholesterol 138 mg/dL (<200); Estimated GFR 108.62 (mL/min/1.73m2); Glucose 83 mg/dL (74-106); HDL Cholesterol 42 mg/dL (>or=50); Potassium 4.1 mmol/L (3.5-5.1); Sodium 140 mmol/L (136-145); TSH (W/Ref FT4) 1.64 uIU/mL (0.36-3.74); Total Protein 7.4 g/dL (6.4-8.2); Triglyceride 285 mg/dL (<150); Vitamin D 25 Total 33 ng/mL (30-100)
[2025-04-25 21:38] LABS: C-Reactive Protein 1.11 mg/dL (<or=0.5); Creatine Kinase 82 U/L (26-192)
== END 2025-04-25 18:34 | disposition home or self-care (01) ==
LOC: NCHCN 18:33
PROVIDERS: PCP Nurse Practitioner Family; Visit Provider Family Medicine
DX: E11.69 Type 2 diabetes mellitus with other specified complication (principal); E55.9 Vitamin D deficiency, unspecified; K76.0 Fatty (change of) liver, not elsewhere classified; R79.82 Elevated C-reactive protein (CRP); M25.59 Pain in other specified joint; G89.29 Other chronic pain
CPT/HCPCS: 80053; 80061; 82306; 82550; 85652; 86200; 82043; 82570; 84443; 85025; 86038; 86140; 86431

== ENCOUNTER 2025-07-25 17:49 | Outpatient (REF) | payer MEDICARE, SELFPAY ==
[2025-07-25 20:44] LABS: Glucose Negative (Negative)
[2025-07-25 20:57] LABS: RBC >50 HPF (0-2); WBC Negative HPF (0-5)
== END 2025-07-25 17:50 | disposition home or self-care (01) ==
LOC: NCHCN 17:49
PROVIDERS: PCP Nurse Practitioner Family; Visit Provider Family Medicine
DX: N39.0 Urinary tract infection, site not specified (principal)
CPT/HCPCS: 81003; 81015

== ENCOUNTER 2025-09-12 15:26 | Outpatient (REF) | payer MEDICARE, SELFPAY | END 2025-09-12 15:27 | disposition home or self-care (01) | LOC: NCHCN 15:26 | PROVIDERS: PCP Nurse Practitioner Family; Visit Provider Family Medicine | DX: R39.9 Unspecified symptoms and signs involving the genitourinary system (principal) | CPT/HCPCS: 87086 ==